=== PATIENT | female | born 1995 | race Caucasian/White ===

== ENCOUNTER 2024-06-25 14:32 | Inpatient (IN) | payer OTHER ==
--- NOTE | 2024-06-25 14:40 | ED ---
General Adult HPI - General Chief complaint: Overdose Stated complaint: overdose Time Seen by Provider: 06/25/24 14:37 Source: patient, EMS Mode of arrival: EMS Limitations: no limitations - History of Present Illness Initial comments: Patient is a 28-year-old female with past medical history of anxiety and borderline personality disorder presenting today for reported overdose. Patient states that she "does not want to live like this anymore" so took reportedly 50- 90 Wellbutrin tablets in an overdose attempt. Patient presents with a bag of medications and the bottle of Wellbutrin tablets she took which reportedly contained 30 tablets. She states she did refill it previously with an old prescription for Wellbutrin. Denies additional ingestions, denies alcohol use. States she has never been admitted for psychiatric issues in the past. She c urrently endorses lightheadedness, nausea and anxiety otherwise denies additional symptoms including hallucinations, headache, chest pain, shortness of breath, abdominal pain. - Related Data Home Medications Medication Instructions Recorded Confirmed Desvenlafaxine [Pristiq ER] 100 mg PO DAILY 06/25/24 06/25/24 Famotidine [Pepcid] 20 mg PO BID 06/25/24 06/25/24 Propranolol HCl 10 mg PO DAILY PRN 06/25/24 06/25/24 buPROPion XL [Wellbutrin XL] 150 mg PO DAILY 06/25/24 06/25/24 lamoTRIgine 200 mg PO DAILY 06/25/24 06/25/24 Allergies Allergy/AdvReac Type Severity Reaction Status Date / Time adhesive Allergy Rash/Hives Verified 06/25/24 14:54 Review of Systems ROS Statement: Those systems with pertinent positive or pertinent negative responses have been documented in the HPI. ROS Other: All systems not noted in ROS Statement are negative. Past Medical History Past Medical History: No Reported History, GERD/Reflux Additional Past Medical History / Comment(s): Does not take any meds for reflux at this time. History of Any Multi-Drug Resistant Organisms: None Reported Past Surgical History: No Surgical Hx Reported Past Anesthesia/Blood Transfusion Reactions: No Reported Reaction Past Psychological History: Depression Smoking Status: Never smoker Past Alcohol Use History: None Reported Past Drug Use History: Marijuana - Past Family History Mother Family Medical History: Hypertension Additional Family Medical History / Comment(s): Bipolar, depression, and bleeding ulcers. Father Family Medical History: Cancer Additional Family Medical History / Comment(s): of pancreatic cancer. General Exam - General Exam Comments Initial Comments: PE: CONSTITUTIONAL: No apparent distress, somewhat ill-appearing, nontoxic, awake and alert SKIN: Generalized pallor, cool, dry, no jaundice, hives or petechiae EYES: Pupils are equally round, extraocular movements intact without nystagmus, clear conjunctiva, non-icteric sclera, no nystagmus HENT: Normocephalic, atraumatic, moist mucus membranes, oropharynx clear without exudates NECK: , Full range of motion, normal appearance PULMONARY: Clear to auscultation without wheezes, rhonchi, or rales, normal excursion, no accessory muscle use and no stridor CARDIOVASCULAR: Regular rate, rhythm, normal S1 and S2. No appreciated murmurs, rubs or gallops. Strong radial pulses with intact distal perfusion. No lower extremity edema GASTROINTESTINAL: Soft, active bowel sounds throughout, non-tender, non- distended, no palpable masses, no rebound or guarding. No hepatosplenomegaly MUSCULOSKELETAL: Extremities have no gross deformity, no edema, redness, or swelling. No calf swelling NEUROLOGIC:_a/o x 3, GCS 15, normal mentation and speech. Moves all extremities x 4 without motor or sensory deficit, no rigidity or clonus PSYCHIATRIC:_Mildly anxious, tearful, regretful mood and affect, thought process is clear and linear, does not appear to be responding to internal stimuli Limitations: no limitations Course Vital Signs 06/25/24 06/25/24 06/25/24 14:35 14:40 16:40 Temperature 98.3 F Pulse Rate 83 120 H 133 H Respiratory 18 18 18 Rate Blood Pressure 148/96 142/90 153/109 O2 Sat by Pulse 99 97 97 Oximetry 06/25/24 06/25/24 06/25/24 17:49 18:04 19:15 Temperature 98 F Pulse Rate 115 H 133 H 129 H Respiratory 18 18 16 Rate Blood Pressure 147/110 145/98 138/99 O2 Sat by Pulse 96 96 99 Oximetry 06/25/24 06/26/24 21:13 00:58 Temperature 99.1 F Pulse Rate 131 H 124 H Respiratory 18 18 Rate Blood Pressure 138/88 121/99 O2 Sat by Pulse 97 97 Oximetry EKG Findings - EKG Comments: EKG Findings:: Sinus rhythm, rate 84 bpm DC interval 170 ms slightly shortened, QT/QTc 357/398, normal axis, no ST elevations or depressions, no arrhythmia STEMI, no terminal R waves Medical Decision Making - Medical Decision Making Was pt. sent in by a medical professional or institution (, PA, SUPERVISOR INSTRUMENT REPAIR, urgent care, hospital, or [facility]...) When possible be specific @ -[No] Did you speak to anyone other than the patient for history (EMS, parent, family, police, friend...)? What history was obtained from this source @ -Spoke with EMS personnel who provided above history, state that they called poison control who said to monitor for seizures and give activated charcoal, treat with benzodiazepines Did you review nursing and triage notes (agree or disagree)? Why? @ -[I reviewed nursing and triage notes] Were old charts reviewed (outside hosp., previous admission, EMS record, old EKG, old radiological studies, urgent care reports/EKG's, [facility] records)? Report findings @ -[Medical records reviewed]-Reviewed discharge summary from 02/23/2017, appears patient was admitted for appendicitis at time Differential Diagnosis (chest pain, altered mental status, abdominal pain women, abdominal pain men, vaginal bleeding, weakness, fever, dyspnea, syncope, headache, dizziness, GI bleed, back pain, seizure, CVA, palpatations, mental health, musculoskeletal)? @Differential Mental Health Depression, anxiety, bipolar, psychosis, schizophrenia, borderline personality, situational depression, adjustment disorder, behavioral disorder, brain tumor, malingering, substance abuse, encephalopathy, medication reaction, dementia, hypothyroidism, degenerative neurologic disorder, lupus.... This is not meant to be all-inclusive list Differential diagnose samanta broad over top considerations include serotonin syndrome, acetaminophen toxicity, salicylate toxicity, anticholinergic toxicity, alcohol toxicity, sympathomimetic toxicity, NMS this is not an all-inclusive list EKG interpreted by me (3pts min.). @ -[As above] X-rays interpreted by me (1pt min.). @ -[None done] CT interpreted by me (1pt min.). @ -[None done] U/S interpreted by me (1pt. min.). @ -[None done] What testing was considered but not performed or refused? (CT, X-rays, U/S, labs)? Why? @ -[None] What meds were considered but not given or refused? Why? @ -[None] Did you discuss the management of the patient with other professionals (professionals i.e. , PA, SUPERVISOR INSTRUMENT REPAIR, lab, RT, psych nurse, social sciences instructor, sap administrator, teacher, admissions officer, caser up)? Give summary @ -[No] Was smoking cessation discussed for >3mins.? @ -[No] Was critical care preformed (if so, how long)? @Yes 35 minutes Were there social determinants of health that impacted care today? How? (Homelessness, low income, unemployed, alcoholism, drug addiction, transportation, low edu. Level, literacy, decrease access to med. care, fpc, rehab)? @ -[No] Was there de-escalation of care discussed even if they declined (Discuss DNR or withdrawal of care, Hospice)? @ -[No] What co-morbidities impacted this encounter? (DM, HTN, Smoking, COPD, CAD, Cancer, CVA, ARF, Chemo, Hep., AIDS, mental health diagnosis, sleep apnea, morbid obesity)? BPD, anxiety Was patient admitted / discharged? Hospital course, mention meds given and rout e, prescriptions, significant lab abnormalities, going to OR and other pertinent info. @[id number]-old female presenting today for intentional overdose of Wellbutrin, reportedly ingested 50 to 90 -150 mg tablets at noon today.. Seen and assessed on arrival. She is somewhat ill-appearing though in no acute distress, nontoxic. Tearful, mildly anxious, regretful. No clonus, no focal deficits, no leadpipe rigidity she is awake and alert without seizure activity. Patient will be put on seizure precautions, tox and comprehensive labs, EKG. Patient being 1 dose Ativan due to anxiety. Will consider escalating doses of Ativan if patient symptoms escalate. Control contacted, recommended activated charge charcoal and 24-hour obs period. On reassessment patient endorses anxiety and feels shaky but there is no seizure activity she remains awake and alert. Will give her a dose additional dose of 2 mg Ativan. Clinical certification has been filed by myself due to intentional overdose. Discussed case with Bowen Harrington, kindly accepts patient for admission. Shortly after discussion with Len, while patient boarded in the emergency department patient did become more shaky and tachycardic, 4 mg IV Ativan was ordered, RN contacted admitting physician, Dr. Sanchez, for further direction. Undiagnosed new problem with uncertain prognosis? @ -[No] Drug Therapy requiring intensive monitoring for toxicity (Heparin, Nitro, Insulin, Cardizem)? @ -[No] Were any procedures done? @ -[No] Diagnosis/symptom? @Intentional Wellbutrin overdose Acute, or Chronic, or Acute on Chronic? @ -Acute Uncomplicated (without systemic symptoms) or Complicated (systemic symptoms)? @Complicated Side effects of treatment? @ -[No] Exacerbation, Progression, or Severe Exacerbation? @ -[No] Poses a threat to life or bodily function? How? (Chest pain, [place], [place], pneumonia, PE, COPD, DKA, ARF, appy, cholecystitis, CVA, Diverticulitis, Homicidal, Suicidal, threat to staff... and all critical care pts) @Yes, Wellbutrin overdose is life-threatening and puts patient at risk for seizures - Lab Data Result diagrams: 06/26/24 06:10 06/26/24 06:10 Lab Results 06/25/24 06/25/24 06/25/24 Range/Units 14:50 14:50 14:50 WBC 9.2 (3.8-10.6) k/uL RBC 4.28 (3.80-5.40) m/uL Hgb 13.5 (11.4-16.0) gm/dL Hct 40.0 (34.0-46.0) % MCV 93.5 (80.0-100.0) fL MCH 31.5 (25.0-35.0) pg MCHC 33.7 (31.0-37.0) g/dL RDW 13.9 (11.5-15.5) % Plt Count 238 (150-450) k/uL MPV 8.3 Neutrophils % 84 % Lymphocytes % 10 % Monocytes % 5 % Eosinophils % 1 % Basophils % 0 % Neutrophils # 7.7 (1.3-7.7) k/uL Lymphocytes # 0.9 L (1.0-4.8) k/uL Monocytes # 0.4 (0-1.0) k/uL Eosinophils # 0.1 (0-0.7) k/uL Basophils # 0.0 (0-0.2) k/uL PT 11.5 (10.0-12.5) sec INR 1.1 (<1.2) Sodium (137-145) mmol/L Potassium (3.5-5.1) mmol/L Chloride (98-107) mmol/L Carbon Dioxide (22-30) mmol/L Anion Gap mmol/L BUN (7-17) mg/dL Creatinine (0.52-1.04) mg/dL Est GFR (CKD-EPI)AfAm (>60 ml/min/1.73 sqM) Est GFR (CKD-EPI)NonAf (>60 ml/min/1.73 sqM) Glucose (74-99) mg/dL Plasma Lactic Acid Soham (0.7-2.0) mmol/L Calcium (8.4-10.2) mg/dL Total Bilirubin (0.2-1.3) mg/dL AST (14-36) U/L ALT (4-34) U/L Alkaline Phosphatase (38-126) U/L Troponin I (0.000-0.034) ng/mL Total Protein (6.3-8.2) g/dL Albumin (3.5-5.0) g/dL Salicylates mg/dL Urine Opiates Screen Not Detected (NotDetected) Ur Oxycodone Screen Not Detected (NotDetected) Urine Methadone Screen Not Detected (NotDetected) Acetaminophen ug/mL Ur Barbiturates Screen Not Detected (NotDetected) U Tricyclic Antidepress Not Detected (NotDetected) Ur Phencyclidine Scrn Not Detected (NotDetected) Ur Amphetamines Screen Not Detected (NotDetected) U Methamphetamines Scrn Not Detected (NotDetected) U Benzodiazepines Scrn Detected H (NotDetected) Urine Cocaine Screen Not Detected (NotDetected) U Marijuana (THC) Screen Detected H (NotDetected) Serum Alcohol mg/dL 06/25/24 06/25/24 06/25/24 Range/Units 14:50 14:50 15:04 WBC (3.8-10.6) k/uL RBC (3.80-5.40) m/uL Hgb (11.4-16.0) gm/dL Hct (34.0-46.0) % MCV (80.0-100.0) fL MCH (25.0-35.0) pg MCHC (31.0-37.0) g/dL RDW (11.5-15.5) % Plt Count (150-450) k/uL MPV Neutrophils % % Lymphocytes % % Monocytes % % Eosinophils % % Basophils % % Neutrophils # (1.3-7.7) k/uL Lymphocytes # (1.0-4.8) k/uL Monocytes # (0-1.0) k/uL Eosinophils # (0-0.7) k/uL Basophils # (0-0.2) k/uL PT (10.0-12.5) sec INR (<1.2) Sodium 141 (137-145) mmol/L Potassium 3.5 (3.5-5.1) mmol/L Chloride 109 H (98-107) mmol/L Carbon Dioxide 20 L (22-30) mmol/L Anion Gap 12 mmol/L BUN 5 L (7-17) mg/dL Creatinine 0.75 (0.52-1.04) mg/dL Est GFR (CKD-EPI)AfAm >90 (>60 ml/min/1.73 sqM) Est GFR (CKD-EPI)NonAf >90 (>60 ml/min/1.73 sqM) Glucose 102 H (74-99) mg/dL Plasma Lactic Acid Soham 1.2 (0.7-2.0) mmol/L Calcium 9.6 (8.4-10.2) mg/dL Total Bilirubin 0.6 (0.2-1.3) mg/dL AST 33 (14-36) U/L ALT 91 H (4-34) U/L Alkaline Phosphatase 81 (38-126) U/L Troponin I <0.012 (0.000-0.034) ng/mL Total Protein 7.0 (6.3-8.2) g/dL Albumin 4.4 (3.5-5.0) g/dL Salicylates <1.0 mg/dL Urine Opiates Screen (NotDetected) Ur Oxycodone Screen (NotDetected) Urine Methadone Screen (NotDetected) Acetaminophen <10.0 ug/mL Ur Barbiturates Screen (NotDetected) U Tricyclic Antidepress (NotDetected) Ur Phencyclidine Scrn (NotDetected) Ur Amphetamines Screen (NotDetected) U Methamphetamines Scrn (NotDetected) U Benzodiazepines Scrn (NotDetected) Urine Cocaine Screen (NotDetected) U Marijuana (THC) Screen (NotDetected) Serum Alcohol <10 mg/dL Disposition Clinical Impression: Intentional overdose Disposition: ADMITTED IP TO THIS [facility] Condition: Stable
[2024-06-25] MEDS: SODIUM CHLORIDE 0.9% 1,000 ML IV STA (14:46)
[2024-06-25] MEDS: LORazepam 2 MG/ML INJ IV STA ×3 (14:47→18:08)
[2024-06-25 14:58] LABS: Basophils % (A) 0 %; Eosinophils # (A) 0.1 k/uL (0-0.7); Eosinophils % (A) 1 %; HGB 13.5 gm/dL (11.4-16.0); Lymphocytes # (A) 0.9 k/uL (1.0-4.8); Lymphocytes % (A) 10 %; MCH 31.5 pg (25.0-35.0); MCHC 33.7 g/dL (31.0-37.0); MCV 93.5 fL (80.0-100.0); Mean Platelet Volume 8.3; Monocytes # (A) 0.4 k/uL (0-1.0); Monocytes % (A) 5 %; Neutrophils # (A) 7.7 k/uL (1.3-7.7); Neutrophils % (A) 84 %; Platelet Count 238 k/uL (150-450); RBC 4.28 m/uL (3.80-5.40); RDW 13.9 % (11.5-15.5); WBC 9.2 k/uL (3.8-10.6)
[2024-06-25 15:02] LABS: INR 1.1 (<1.2)
[2024-06-25 15:03] LABS: Prothrombin Time 11.5 sec (10.0-12.5)
[2024-06-25 15:10] LABS: ALT 91 U/L (4-34); AST 33 U/L (14-36); Acetaminophen <10.0 ug/mL; African American GFR (CKD) >90 (>60 ml/min/1.73 sqM); Albumin 4.4 g/dL (3.5-5.0); Alcohol <10 mg/dL; Alkaline Phosphatase 81 U/L (38-126); Anion Gap 12 mmol/L; Blood Urea Nitrogen 5 mg/dL (7-17); Calcium 9.6 mg/dL (8.4-10.2); Carbon Dioxide 20 mmol/L (22-30); Chloride 109 mmol/L (98-107); Glucose 102 mg/dL (74-99); Non-African American GFR(CKD) >90 (>60 ml/min/1.73 sqM); Potassium 3.5 mmol/L (3.5-5.1); Salicylate <1.0 mg/dL; Sodium 141 mmol/L (137-145); Total Bilirubin 0.6 mg/dL (0.2-1.3)
[2024-06-25] MEDS ORDERED: ALPRAZolam 0.25 MG TAB PO PRN (16:35)
[2024-06-25] MEDS ORDERED: NALOXONE 0.4 MG/ML 1 ML VIAL IV PRN (16:35)
[2024-06-25] MEDS: ONDANSETRON 4 MG/2 ML VIAL IVP STA (17:09)
[2024-06-25] MEDS: SODIUM CHLORIDE 0.9% 1,000 ML IV SCH (17:10)
[2024-06-25 17:28] LABS: Glucose,Whole Blood 94 mg/dL (70-110)
--- NOTE | 2024-06-25 18:28 | P.HPIM ---
History of Present Illness H&P Date: 06/25/24 Chief Complaint: Wellbutrin overdose 28-year-old woman with medical history of anxiety and borderline personality disorder on Wellbutrin presented after intentional ingestion of Wellbutrin. Patient is psychotic at the time my evaluation does not provide reliable history. According to ER provider signout as well as chart review, patient ingested somewhere between 50-90 extended release Wellbutrin tablets and an overdose attempt. Patient is clearly agitated, tachycardic at the time my evaluation. Upon arrival patient was afebrile, 148/96, heart rate 83. Patient subsequently received activated charcoal, was started on IV fluids, and given a total of 7 mg of Ativan while on continuous telemetry, with heart rates increasing to the 130s to 140s. The ER provider did contact poison control control who recommended medical monitoring until patient is stable for transfer to the mental health unit. Review of lab work shows normal CBC, CO2 of 20, ALT of 91, negative troponin, normal lactic acid, negative salicylate level, alcohol level, Tylenol level. Initial EKG shows normal sinus rhythm with a short MO interval and right axis deviation. Patient was admitted to the cardiac selective floor with telemetry, with low threshold for ICU escalation. Review of systems is not reliable in patient's present state. Gen: In mild distress HEENT: normocephalic, atraumatic, hearing acuity is intant, mucous membranes moist CVS: perfusing all extremities well, no pitting edema, Respiratory: symmetric chest expansion, no accessory muscle use, GI: soft, NTTP, ND, : no suprapubic tenderness, no CVA tenderness MSK/Derm: no rashes, cyanosis Neuro: CN II-XII intact, no motor weakness, Psych: cooperative, highly anxious mood and affect, judgment and insight is impa ired Labs and imaging reviewed above Assessment/plan: Intentional overdose with Wellbutrin Anxiety Borderline personality disorder -Admit patient to cardiac selected with telemetry, low threshold for escalation to ICU for IV benzodiazepine drip -Seizure precautions -Start patient on Librium 25 mg 4 times daily -4 mg Ativan every 4 hours as needed for seizures -Psychiatry consulted -One-to-one sitter -EKG every 6 hours to monitor MO interval Patient is full code Past Medical History Past Medical History: No Reported History, GERD/Reflux Additional Past Medical History / Comment(s): Does not take any meds for reflux at this time. History of Any Multi-Drug Resistant Organisms: None Reported Past Surgical History: No Surgical Hx Reported Past Anesthesia/Blood Transfusion Reactions: No Reported Reaction Past Psychological History: Depression Smoking Status: Never smoker Past Alcohol Use History: None Reported Past Drug Use History: Marijuana - Past Family History Mother Family Medical History: Hypertension Additional Family Medical History / Comment(s): Bipolar, depression, and bleeding ulcers. Father Family Medical History: Cancer Additional Family Medical History / Comment(s): of pancreatic cancer. Medications and Allergies Home Medications Medication Instructions Recorded Confirmed Type Desvenlafaxine [Pristiq ER] 100 mg PO DAILY 06/25/24 06/25/24 History Famotidine [Pepcid] 20 mg PO BID 06/25/24 06/25/24 History Propranolol HCl 10 mg PO DAILY PRN 06/25/24 06/25/24 History buPROPion XL [Wellbutrin XL] 150 mg PO DAILY 06/25/24 06/25/24 History lamoTRIgine 200 mg PO DAILY 06/25/24 06/25/24 History Allergies Allergy/AdvReac Type Severity Reaction Status Date / Time adhesive Allergy Rash/Hives Verified 06/25/24 14:54 Physical Exam Osteopathic Statement: *. No significant issues noted on an osteopathic structural exam other than those noted in the History and Physical/Consult. Vitals: Vital Signs Temp Pulse Resp BP Pulse Ox 06/25/24 18:04 98 F 133 H 18 145/98 96 06/25/24 17:49 115 H 18 147/110 96 06/25/24 16:40 133 H 18 153/109 97 06/25/24 14:40 120 H 18 142/90 97 06/25/24 14:35 98.3 F 83 18 148/96 99 Intake and Output 06/25/24 06/25/24 06/25/24 06:59 14:59 22:59 Other: Weight 120.202 kg Results CBC & Chem 7: 06/25/24 14:50 06/25/24 14:50 Labs: Abnormal Lab Results - Last 24 Hours (Table) 06/25/24 06/25/24 Range/Units 14:50 14:50 Lymphocytes # 0.9 L (1.0-4.8) k/uL Chloride 109 H (98-107) mmol/L Carbon Dioxide 20 L (22-30) mmol/L BUN 5 L (7-17) mg/dL Glucose 102 H (74-99) mg/dL ALT 91 H (4-34) U/L
[2024-06-25] MEDS: chlordiazePOXIDE 25 MG CAP PO SCH (18:49)
[2024-06-25 19:00] LABS: Amphetamine Screen,Urine Not Detected (NotDetected); Barbiturate Screen,Urine Not Detected (NotDetected); Benzodiazepines Screen,Urine Detected (NotDetected); Cocaine Screen,Urine Not Detected (NotDetected); Methadone Screen, Urine Not Detected (NotDetected); Opiate Screen,Urine Not Detected (NotDetected); Oxycodone Screen, Urine Not Detected (NotDetected); Phencyclidine Screen,Urine Not Detected (NotDetected); Tricyclic Antidepressant,Urine Not Detected (NotDetected); Urn Cannabinoid Scrn Detected (NotDetected)
[2024-06-25] MEDS: LORazepam 2 MG/ML INJ IV PRN (19:55)
[2024-06-25] MEDS: TRIMETHOBENZAMIDE 100 MG/ML 2 ML VIAL IM PRN (22:33)
[2024-06-26] MEDS: LORazepam 2 MG/ML INJ IV STA ×5 (00:17→09:00)
[2024-06-26 06:36] LABS: Basophils % (A) 0 %; Eosinophils % (A) 0 %; HCT 38.7 % (34.0-46.0); HGB 12.4 gm/dL (11.4-16.0); Lymphocytes # (A) 0.9 k/uL (1.0-4.8); Lymphocytes % (A) 14 %; MCH 30.5 pg (25.0-35.0); MCHC 32.1 g/dL (31.0-37.0); MCV 95.1 fL (80.0-100.0); Mean Platelet Volume 8.4; Monocytes # (A) 0.3 k/uL (0-1.0); Monocytes % (A) 5 %; Neutrophils # (A) 4.9 k/uL (1.3-7.7); Neutrophils % (A) 78 %; Platelet Count 217 k/uL (150-450); RBC 4.07 m/uL (3.80-5.40); RDW 14.1 % (11.5-15.5); WBC 6.3 k/uL (3.8-10.6)
[2024-06-26 06:52] LABS: ALT 69 U/L (4-34); AST 27 U/L (14-36); African American GFR (CKD) >90 (>60 ml/min/1.73 sqM); Alkaline Phosphatase 68 U/L (38-126); Anion Gap 10 mmol/L; Blood Urea Nitrogen <2 mg/dL (7-17); Calcium 9.1 mg/dL (8.4-10.2); Carbon Dioxide 24 mmol/L (22-30); Chloride 109 mmol/L (98-107); Glucose 98 mg/dL (74-99); Magnesium 1.5 mg/dL (1.6-2.3); Non-African American GFR(CKD) >90 (>60 ml/min/1.73 sqM); Sodium 143 mmol/L (137-145); Total Bilirubin 0.5 mg/dL (0.2-1.3); Total Protein 6.3 g/dL (6.3-8.2)
[2024-06-26] MEDS: diphenhydrAMINE 50 MG/ML 1 ML VIAL IVP STA (08:15)
[2024-06-26] MEDS: HALOPERIDOL LACTATE 5 MG/ML 1 ML VIAL IM STA (08:15)
[2024-06-26] MEDS: HALOPERIDOL LACTATE 5 MG/ML 1 ML VIAL IVP STA (08:15)
[2024-06-26] MEDS: MIDAZOLAM HCL 50 MG in SODIUM CHLORIDE 0.9% 40 ML IV SCH (08:37)
[2024-06-26] MEDS ORDERED: IPRATROPIUM-ALBUTEROL 3 ML NEB INHALATION PRN (08:37)
[2024-06-26] MEDS ORDERED: Magnesium Replacement Protocol 1 EACH MISC MISCELLANE PRN (08:39)
[2024-06-26] MEDS ORDERED: CHLORHEXIDINE GLUCONATE 15 ML CUP MUCOUS MEM SCH (09:00)
[2024-06-26 09:07] LABS: ABG HCO3 19 mmol/L (21-25); ABG Oxygen Saturation >100.0 % (94-97); ABG PCO2 39 mmHg (35-45); ABG PO2 364 mmHg (83-108); ABG TCO2 20 mmol/L (19-24); Allen Test Performed? Yes
[2024-06-26] MEDS ORDERED: SODIUM CHLORIDE 0.9% 1,000 ML IV SCH ×2 (09:30→09:45)
[2024-06-26] MEDS ORDERED: Potassium Replacement Protocol 1 EACH MISC MISCELLANE PRN (09:45)
--- NOTE | 2024-06-26 09:47 | XR ---
EXAMINATION TYPE: XR chest 1V DATE OF EXAM: 06/26/2024 CLINICAL HISTORY: Difficulty breathing post intubation. TECHNIQUE: Single AP portable upright view of the chest is obtained. COMPARISON: None. FINDINGS: There is endotracheal tube terminating past the Nataliya into the right side bronchus. There is left basilar opacity. Right lung is clear. Cardiac silhouette size appears within normal limits. Osseous structures are intact. IMPRESSION: Low-lying endotracheal tube needs to be repositioned. [facility], , 06/26/2024 9:45 AM
--- NOTE | 2024-06-26 09:49 | XR ---
EXAMINATION TYPE: XR chest 1V DATE OF EXAM: 06/26/2024 CLINICAL HISTORY: ET tube adjustment and OG tube placement. TECHNIQUE: Single AP portable upright view of the chest is obtained. COMPARISON: Chest x-ray from earlier today FINDINGS: Improved positioning of endotracheal tube now at the mid clavicular level approximately 4 to 5 cm above the donnie after repositioning. There is new orogastric tube projecting below left emanuel diaphragm. There is left basilar opacity redemonstrated. Right lung remains clear. Cardiac silhouette size stabl e and within normal limits. Osseous structures are intact. IMPRESSION: 1. New orogastric tube satisfactory in position. Endotracheal tube is satisfactory in position after repositioning. 2. Persistent left basilar acute infiltrate and/or atelectasis is noted. [facility], , 06/26/2024 9:47 AM
[2024-06-26] MEDS: MAGNESIUM SULFATE-D5W PMX 1 GM in DEXTROSE/WATER 1 100ML.BAG IVPB SCH (10:00)
[2024-06-26] MEDS: HEPARIN SODIUM,PORCINE 5,000 UNIT/ML 1 ML VIAL SQ SCH (10:00)
[2024-06-26] MEDS: POTASSIUM BICARBONATE/CIT AC 20 MEQ TABLET.EFF NG-TUBE SCH ×3 (10:00→19:06)
[2024-06-26] MEDS: SODIUM BICARB 8.4% 50 ML SYR (1 MEQ/ML) IV STA (10:01)
[2024-06-26 10:08] LABS: Glucose,Whole Blood 92 mg/dL (70-110)
--- NOTE | 2024-06-26 11:43 | P.PN ---
Subjective Progress Note Date: 06/26/24 Called to bedside for rapid response today, patient was extremely agitated hypertensive and tachycardic despite receiving 21 mg of Ativan as well as standing Librium overnight. During the rapid response, patient received an additional 8 mg of Ativan, 50 mg of Benadryl, 5 mg of Haldol. Despite these measures, patient was still extremely agitated requiring 4 point restraints. At this point, decision was made to intubate and sedate the patient at bedside and start the patient on an IV benzodiazepine drip, propofol drip. Patient was intubated using 200 of propofol, 2 of Nimbex. Initial intubation resulted in right mainstem intubation but resolved after pulling back ET tube. Patient was started on midazolam drip in the ICU, propofol drip. She was saturating well on vent settings. General: intubated, sedated HEENT: normocephalic, atraumatic, no tracheal deviation Respiratory: symmetric chest rise, no cyanosis, ventilator dependent CVS: perfusing all extremities, no distal gangrene, no pitting edema GI: soft, ND : no SPT, no CVAT, benton is present Neuro: sedated Hospital course: 28-year-old woman with medical history of anxiety and borderline personality disorder on Wellbutrin presented after intentional ingestion of Wellbutrin. Upon arrival patient was afebrile, 148/96, heart rate 83. Patient subsequently received activated charcoal, was started on IV fluids, and given a total of 7 mg of Ativan while on continuous telemetry, with heart rates increasing to the 130s to 140s. The ER provider did contact poison control control who recommended medical monitoring until patient is stable for transfer to the mental health unit. Review of lab work shows normal CBC, CO2 of 20, ALT of 91, negative troponin, normal lactic acid, negative salicylate level, alcohol level, Tylenol level. Initial EKG shows normal sinus rhythm with a short ME interval and right axis deviation. Patient was admitted to the cardiac selective floor with telemetry, with low threshold for ICU escalation. Assessment/plan: Intentional overdose with Wellbutrin Anxiety Borderline personality disorder -Patient was transferred to the ICU for IV benzodiazepine drip -Seizure precautions, neurology consulted, EEG ordered stat -Continue midazolam drip, uptitrate as warranted -Continue propofol drip -Psychiatry consulted -Pulmonology/ICU care and recommendations appreciated -One-to-one sitter -EKG every 6 hours to monitor ME interval Patient is full code I spent 80 minutes of critical care time on this patient today Objective - Vital Signs Vital signs: Vital Signs Temp 99.1 F 06/26/24 07:55 Pulse 108 H 06/26/24 07:55 Resp 20 06/26/24 07:55 BP 124/87 06/26/24 07:55 Pulse Ox 98 06/26/24 07:55 FiO2 50 06/26/24 09:13 Intake & Output 06/25/24 06/26/24 06/26/24 18:59 06:59 18:59 Weight 120.202 kg 109.4 kg Other: # Voids 1 - Labs CBC & Chem 7: 06/26/24 06:10 06/26/24 06:10 Labs: Abnormal Lab Results - Last 24 Hours (Table) 06/25/24 06/25/24 06/25/24 Range/Units 14:50 14:50 14:50 Lymphocytes # 0.9 L (1.0-4.8) k/uL ABG pH (7.35-7.45) ABG pO2 (83-108) mmHg ABG HCO3 (21-25) mmol/L ABG O2 Saturation (94-97) % Potassium (3.5-5.1) mmol/L Chloride 109 H (98-107) mmol/L Carbon Dioxide 20 L (22-30) mmol/L BUN 5 L (7-17) mg/dL Glucose 102 H (74-99) mg/dL Magnesium (1.6-2.3) mg/dL ALT 91 H (4-34) U/L U Benzodiazepines Scrn Detected H (NotDetected) U Marijuana (THC) Screen Detected H (NotDetected) 06/26/24 06/26/24 06/26/24 Range/Units 06:10 06:10 09:05 Lymphocytes # 0.9 L (1.0-4.8) k/uL ABG pH 7.30 L (7.35-7.45) ABG pO2 364 H (83-108) mmHg ABG HCO3 19 L (21-25) mmol/L ABG O2 Saturation >100.0 H (94-97) % Potassium 3.0 L (3.5-5.1) mmol/L Chloride 109 H (98-107) mmol/L Carbon Dioxide (22-30) mmol/L BUN <2 L (7-17) mg/dL Glucose (74-99) mg/dL Magnesium 1.5 L (1.6-2.3) mg/dL ALT 69 H (4-34) U/L U Benzodiazepines Scrn (NotDetected) U Marijuana (THC) Screen (NotDetected)
[2024-06-26] MEDS ORDERED: IPRATROPIUM-ALBUTEROL 3 ML NEB INHALATION SCH (12:00)
[2024-06-26 12:21] LABS: Glucose,Whole Blood 87 mg/dL (70-110)
[2024-06-26] MEDS: SODIUM CHLORIDE 0.9% 1,000 ML IV SCH (12:46)
--- NOTE | 2024-06-26 13:49 | P.PN ---
Progress Note - Text Progress Note Date: 06/26/24 Preliminary EEG: Negative for seizure or discharges.
--- NOTE | 2024-06-26 14:18 | P.CNPUL ---
History of Present Illness Consult date: 06/26/24 Requesting physician: Sridevi Sanchez Reason for consult: other (Wellbutrin overdose) Chief complaint: Does not want to live like this anymore History of present illness: This is a 28-year-old female with history of borderline personality disorder, presented yesterday to the ER with intentional suicidal attempt by taking multiple Wellbutrin tablets. According to the chart patient may have taken about 30 tablets. Patient stated to the ER physician that she does not want to live like this anymore, and she took many tablets of Wellbutrin. This was obviously a suicidal attempt. Patient received activated charcoal, patient was admitted to the medical floor, however this morning patient was becoming more and more agitated and restless, becoming more lightheaded, patient was getting quite tachycardic, and hypertensive. Has been receiving Ativan and Librium overnight, rapid response team responded to the patient this morning and she received additional 8 mg of Ativan, 50 mg of Benadryl and 5 mg of Haldol. Continued to be agitated and requiring 4 point restraints. At this point desmond modi was intubated, placed on propofol drip and Versed drip, transferred to the ICU, and I saw her on consultation upon arrival. Patient required lines placement including a right femoral triple-lumen catheter and right radial arterial line which was done on emergency basis as the patient had very poor peripheral IV access. Patient was intubated and mechanically ventilated, she is on assist-control rate of 16 tidal volume 450 FiO2 50% and PEEP of 5 ABG showed a pO2 of 364 pCO2 of 39 pH of 7.29 she received 1 amp of bicarb. Patient was on propofol at 50 mcg/kg/min Versed at 3 mg/h IV fluid 0.9 at 75 cc/h and she is on the usual ICU protocol for GI and DVT prophylaxis she is also on ventilatory support, and will address nutritional support later today or tomorrow. CBC showed WBC of 6.3 hemoglobin 12.4 electrolytes showed low potassium of 3.0 being addressed accordingly, labs were all reviewed, test was negative. Drug screen showed positive for benzodiazepines and positive for marijuana. Otherwise was negative. Review of Systems ROS unobtainable: due to endotracheal tube Past Medical History Past Medical History: No Reported History, GERD/Reflux Additional Past Medical History / Comment(s): Does not take any meds for reflux at this time. History of Any Multi-Drug Resistant Organisms: None Reported Past Surgical History: No Surgical Hx Reported Past Anesthesia/Blood Transfusion Reactions: No Reported Reaction Past Psychological History: Depression Smoking Status: Never smoker Past Alcohol Use History: None Reported Past Drug Use History: Marijuana - Past Family History Mother Family Medical History: Hypertension Additional Family Medical History / Comment(s): Bipolar, depression, and bleeding ulcers. Father Family Medical History: Cancer Additional Family Medical History / Comment(s): of pancreatic cancer. Medications and Allergies Home Medications Medication Instructions Recorded Confirmed Type Desvenlafaxine [Pristiq ER] 100 mg PO DAILY 06/25/24 06/25/24 History Famotidine [Pepcid] 20 mg PO BID 06/25/24 06/25/24 History Propranolol HCl 10 mg PO DAILY PRN 06/25/24 06/25/24 History buPROPion XL [Wellbutrin XL] 150 mg PO DAILY 06/25/24 06/25/24 History lamoTRIgine 200 mg PO DAILY 06/25/24 06/25/24 History Allergies Allergy/AdvReac Type Severity Reaction Status Date / Time adhesive Allergy Rash/Hives Verified 06/25/24 14:54 Physical Exam Vitals: Vital Signs Temp Pulse Pulse Resp BP BP Pulse Ox 06/26/24 13:00 87 18 99/60 100 06/26/24 12:52 06/26/24 12:30 85 16 101/70 99 06/26/24 12:00 98.5 F 86 16 102/63 99 06/26/24 11:41 86 17 102/63 99 06/26/24 10:00 06/26/24 09:13 06/26/24 08:50 06/26/24 08:48 06/26/24 07:55 99.1 F 108 H 20 124/87 98 06/26/24 03:49 98.9 F 128 H 18 134/85 98 06/26/24 01:41 124 H 20 125/76 94 L 06/26/24 00:58 99.1 F 124 H 18 121/99 97 06/25/24 21:13 131 H 18 138/88 97 06/25/24 19:15 129 H 16 138/99 99 06/25/24 18:04 98 F 133 H 18 145/98 96 06/25/24 17:49 115 H 18 147/110 96 06/25/24 16:40 133 H 18 153/109 97 06/25/24 14:40 120 H 18 142/90 97 06/25/24 14:35 98.3 F 83 18 148/96 99 FiO2 06/26/24 13:00 06/26/24 12:52 40 06/26/24 12:30 06/26/24 12:00 40 06/26/24 11:41 06/26/24 10:00 50 06/26/24 09:13 50 06/26/24 08:50 100 06/26/24 08:48 100 06/26/24 07:55 06/26/24 03:49 06/26/24 01:41 06/26/24 00:58 06/25/24 21:13 06/25/24 19:15 06/25/24 18:04 06/25/24 17:49 06/25/24 16:40 06/25/24 14:40 06/25/24 14:35 Intake and Output 06/25/24 06/26/24 06/26/24 22:59 06:59 14:59 Intake Total 425 Output Total 400 Balance 25 Intake: Intake, IV Titration 425 Amount Magnesium Sulfate-D5w Pmx 200 1 gm In Dextrose/Water 1 100ml.bag @ 100 mls/hr IVPB Q1H [facility] Rx#: [id number] Sodium Chloride 0.9% 1, 75 000 ml @ 75 mls/hr IV . [id number] [facility] Rx#:[id number] Sodium Chloride 0.9% 1, 150 000 ml @ 75 mls/hr IV . [id number] [facility] Rx#:[id number] Output: Urine 400 Other: Voiding Method Indwelling Catheter # Voids 1 Weight 109.4 kg 109.4 kg ABP, PAP, CO, CI - Last 8 Hours Arterial Blood Pressure 106/69 Arterial Blood Pressure 108/69 Arterial Blood Pressure 122/63 Arterial Blood Pressure 128/63 Gen: Revealed a 28-year-old female obese intubated mechanically ventilated, sedated Head: Atraumatic normocephalic HEENT: PERRLA, EOMI, nonicteric no neck masses no JVD CVS: Distant S1-S2, no S3 gallop, 2/6 systolic murmur throughout the precordium Respiratory: Clear bilaterally no crackles rhonchi or wheezes GI: Obese, soft nontender no rebound no guarding, positive bowel sounds. : no suprapubic tenderness, no CVA tenderness MSK/Derm: No rashes. Skin is dry. And warm Neuro: Could not assess patient is sedated she even received Pneumovax shortly after she arrived to the ICU, Psych: Could not assess. Results - Laboratory Findings CBC and BMP: 06/26/24 06:10 06/26/24 06:10 ABG ABG pH 7.30 (7.35-7.45) L 06/26/24 09:05 ABG pCO2 39 mmHg (35-45) 06/26/24 09:05 ABG pO2 364 mmHg (83-108) H 06/26/24 09:05 ABG O2 Saturation >100.0 % (94-97) H 06/26/24 09:05 PT/INR, D-dimer PT 11.5 sec (10.0-12.5) 06/25/24 14:50 INR 1.1 (<1.2) 06/25/24 14:50 Abnormal lab findings: Abnormal Labs 06/25/24 06/25/24 06/25/24 14:50 14:50 14:50 Lymphocytes # 0.9 L ABG pH ABG pO2 ABG HCO3 ABG O2 Saturation Potassium Chloride 109 H Carbon Dioxide 20 L BUN 5 L Glucose 102 H Magnesium ALT 91 H U Benzodiazepines Scrn Detected H U Marijuana (THC) Screen Detected H 06/26/24 06/26/24 06/26/24 06:10 06:10 09:05 Lymphocytes # 0.9 L ABG pH 7.30 L ABG pO2 364 H ABG HCO3 19 L ABG O2 Saturation >100.0 H Potassium 3.0 L Chloride 109 H Carbon Dioxide BUN <2 L Glucose Magnesium 1.5 L ALT 69 H U Benzodiazepines Scrn U Marijuana (THC) Screen - Diagnostic Findings Chest x-ray: image reviewed (Chest x-ray showed no evidence of active disease except for minimal left basilar atelectasis, doubt pneumonia, endotracheal tube is in proper position, and orogastric tube is in satisfactory position) Assessment and Plan Assessment: Impression: Acute respiratory failure, secondary to Wellbutrin overdose which required significant amount of sedation and patient developed respiratory failure requiring intubation and mechanical ventilation and needed to be intubated for protection of her airways as the patient received significant amount of sedation to control her agitation from Wellbutrin overdose. Again patient was intubated to protect her airways. Wellbutrin overdose Borderline personality disorder Suicidal attempt Recommendation: Continue ventilatory support, ventilator settings were addressed accordingly Patient required placement of lines for IV fluids and for hemodynamic support as well as hemodynamic monitoring if felt to be necessary Patient will be placed on GI and DVT prophylaxis Continue propofol and continue Versed Seizure precautions Psychiatric consultation Continue to monitor EKG and OH interval so far has been within normal. Prognosis is guarded. Patient is critically ill. Time with Patient: Greater than 30
--- NOTE | 2024-06-26 14:22 | P.CN ---
Psychiatric Consult - . Consult date: 06/26/24 Consult:: 06/26/24 14:17 IDENTIFYING DATA: This patient is a 28-year-old female REASON FOR REFERRAL: Psychiatry was consulted for suicide attempt HISTORY OF PRESENT ILLNESS: The patient presented to the hospital with suicide attempt via overdose on reportedly 50-90 Wellbutrin tabs. Activated charcoal was initiated in the ED and patient was started on Librium however today had to be transferred to the ICU and intubated after becoming agitated, requiring IV propofol and midazolam. Patient seen and evaluated in her room, was intubated and unable to provide any history at this time. Will attempt to interview patient once extubated. PAST PSYCHIATRIC HISTORY: Unknown PAST MEDICAL HISTORY: GERD. ALLERGIES: as per EMR. CHEMICAL DEPENDENCY HISTORY: as per HPI. FAMILY PSYCHIATRIC/SUBSTANCE USE HISTORY: Unable to elicit SOCIAL HISTORY: Unable to elicit MENTAL STATUS EXAM: General Appearance: Patient intubated. Patient appears to have poor hygiene and grooming wearing hospital gown. Behavior: Patient is calmly lying in bed without any agitated behavior. Suicidality/Homicidality: Unable to elicit however patient reportedly overdosed on Wellbutrin in a suicide attempt Perceptions: Unable to elicit Though content/process: Unable to elicit Judgment and insight: Poor IMPRESSIONS: Suicide attempt via OD Depression, unspecified PLAN: -Will interview patient at a later time pending extubation. Please contact team once extubated so that interview can be conducted. Will discuss recommendations at that time.
[2024-06-26] MEDS: DEXMEDETOMIDINE/0.9% NACL(PMX) 400 MCG in EMPTY BAG 1 BAG IV SCH (15:21)
[2024-06-26] MEDS: CISATRACURIUM 200 MG in SODIUM CHLORIDE 0.9% 180 ML IV SCH (15:21)
[2024-06-26 17:52] LABS: Glucose,Whole Blood 80 mg/dL (70-110)
--- NOTE | 2024-06-26 19:14 | OP ---
OPERATIVE REPORT DATE OF SERVICE : PROCEDURE PERFORMED: Placement of a right radial arterial line. PREOPERATIVE DIAGNOSIS: Acute hypoxic respiratory failure secondary to acute Wellbutrin overdose. POSTOPERATIVE DIAGNOSIS: Acute hypoxic respiratory failure secondary to acute Wellbutrin overdose. ANESTHESIA USED: None deployed. DESCRIPTION OF PROCEDURE: The right wrist was prepared in a sterile fashion. Drapes were applied. The right radial artery was palpated, easily cannulated. A guidewire was placed. An Arrow catheter was inserted over the guidewire, and the guidewire was removed. Good blood flow, good waveform noted. No complications. Line was secured using 3.0 silk sutures. MMODL / IJN: [id number] /
--- NOTE | 2024-06-26 19:29 | OP ---
OPERATIVE REPORT DATE OF SERVICE : PROCEDURE PERFORMED: Placement of the right femoral triple-lumen catheter. This was done on an emergent basis as the patient had acute hypoxic respiratory failure, and required a venous access. She only had a very tiny peripheral IV, which was not adequate. The patient was on multiple medications and drips. PROCEDURE: The patient was placed in a supine position, the right groin was prepared in a sterile fashion. Drapes were applied. The right area was locally anesthetized with lidocaine. Then, the right femoral vein was easily cannulated, and a guidewire was placed. The area around the guidewire was dilated; then a triple-lumen catheter was inserted; threaded over the guidewire, the guidewire was removed. Good blood flow noted in the 3 different ports, line was secured using 3.0 silk sutures, no complications. MMODL / IJN: [id number] /
[2024-06-26] MEDS: SODIUM CHLORIDE 0.9% 1,000 ML IV ONE (23:22)
[2024-06-26 23:32] LABS: Glucose,Whole Blood 84 mg/dL (70-110)
--- NOTE | 2024-06-27 01:41 | EEG ---
ELECTROENCEPHALOGRAM REPORT CLINICAL HISTORY: This is a 28-year-old woman with Wellbutrin overdose, who has altered mental status. The video EEG is obtained to evaluate for seizure epileptiform activity. RELEVANT MEDICATIONS: 1. Wellbutrin. 2. Ativan. 3. IV propofol. 4. Versed that is reported on the technical services analyst report. EEG TYPE: This is a routine 21-channel EEG with video using the 10/20 electrode placement system. DESCRIPTION: The patient is intubated on a ventilator. The background consists of [id number] voltage of 11 to 11.5 hertz activity and at rare times intermixed with delta activity. There is no physiological stage 2 sleep architecture. There is no focal slowing. Interictal and ictal is none. ACTIVATION PROCEDURE: Photic stimulation did not evoke a posterior driving response. There is no abnormality during the photic stimulation. Hyperventilation is not performed. CLINICAL INTERPRETATION: This is an abnormal routine EEG. The background slowing is suggestive of mild encephalopathy likely due to toxic metabolic derangement as well as medication use (IV propofol, Versed, and Ativan). Otherwise, there is no focal slowing, epileptiform discharge, or seizure on the EEG. Clinical correlation is recommended. MMODL / IJN: [id number] / MTDD
[2024-06-27] MEDS: SODIUM CHLORIDE 0.9% 500 ML 500 ML IV ONE ×2 (03:41→05:32)
[2024-06-27 04:11] LABS: Basophils % (A) 0 %; Eosinophils % (A) 0 %; HCT 32.1 % (34.0-46.0); HGB 10.1 gm/dL (11.4-16.0); Hypochromasia Slight; Lymphocytes # (A) 1.1 k/uL (1.0-4.8); Lymphocytes % (A) 25 %; MCH 30.9 pg (25.0-35.0); MCHC 31.6 g/dL (31.0-37.0); MCV 97.9 fL (80.0-100.0); Mean Platelet Volume 8.5; Monocytes # (A) 0.4 k/uL (0-1.0); Monocytes % (A) 8 %; Neutrophils # (A) 2.8 k/uL (1.3-7.7); Neutrophils % (A) 65 %; Platelet Count 147 k/uL (150-450); RBC 3.28 m/uL (3.80-5.40); WBC 4.3 k/uL (3.8-10.6)
[2024-06-27 04:33] LABS: Magnesium 2.3 mg/dL (1.6-2.3)
[2024-06-27 05:22] LABS: Allen Test Performed? no
[2024-06-27 05:23] LABS: ABG Base Excess 0.8 mmol/L; ABG HCO3 25 mmol/L (21-25); ABG PCO2 38 mmHg (35-45); ABG PH 7.43 (7.35-7.45); ABG PO2 114 mmHg (83-108); ABG TCO2 26 mmol/L (19-24)
[2024-06-27 05:39] LABS: Glucose,Whole Blood 72 mg/dL (70-110)
--- NOTE | 2024-06-27 06:10 | XR ---
EXAMINATION TYPE: XR chest 1V DATE OF EXAM: 06/27/2024 CLINICAL HISTORY: Difficulty breathing progress study. TECHNIQUE: Single AP portable semiupright view of the chest is obtained. COMPARISON: Chest x-ray from one day earlier FINDINGS: Stable endotracheal and orogastric tubes. There are bibasilar opacities and mild central vascular congestion. Cardiac silhouette size stable an d within normal limits. Osseous structures are intact. IMPRESSION: Bibasilar acute infiltrates and/or atelectasis with mild central vascular congestion. [facility], , 06/27/2024 6:08 AM
[2024-06-27] MEDS: NOREPINEPHRINE 4 MG in SODIUM CHLORIDE 0.9% 250 ML IV SCH (07:01)
[2024-06-27] MEDS: PANTOPRAZOLE 40 MG/10 ML VIAL IVP SCH (07:51)
[2024-06-27 08:30] LABS: African American GFR (CKD) >90 (>60 ml/min/1.73 sqM); Anion Gap 8 mmol/L; Blood Urea Nitrogen 3 mg/dL (7-17); Calcium 8.1 mg/dL (8.4-10.2); Carbon Dioxide 22 mmol/L (22-30); Chloride 112 mmol/L (98-107); Glucose 84 mg/dL (74-99); Non-African American GFR(CKD) >90 (>60 ml/min/1.73 sqM); Potassium 3.5 mmol/L (3.5-5.1); Sodium 142 mmol/L (137-145)
[2024-06-27 08:53] LABS: Glucose,Whole Blood 74 mg/dL (70-110)
[2024-06-27] MEDS: POTASSIUM BICARBONATE/CIT AC 20 MEQ TABLET.EFF NG-TUBE SCH (09:27)
[2024-06-27] MEDS: CHLORHEXIDINE GLUCONATE 15 ML CUP MUCOUS MEM SCH (09:27)
[2024-06-27 09:40] LABS: Appearance,Urine Clear (Clear); Bilirubin,Urine Negative (Negative); Blood,Urine Negative (Negative); Color,Urine Light Yellow; Glucose,Urine (UA) Negative (Negative); Ketones,Urine Negative (Negative); Leukocyte Esterase,Urine Negative (Negative); Nitrite,Urine Negative (Negative); PH, Urine 5.5 (5.0-8.0); Protein,Urine Negative (Negative); Specific Gravity,Urine 1.013 (1.001-1.035); Urobilinogen,Urine <2.0 mg/dL (<2.0)
[2024-06-27 09:45] LABS: Reticulocyte % 1.5 % (0.5-2.0)
[2024-06-27 09:53] LABS: Albumin 2.9 g/dL (3.5-5.0); Bilirubin, Delta 0.1 mg/dL (0.0-0.2); Bilirubin,Unconjugated 0.2 mg/dL (0.0-1.1); Total Bilirubin 0.3 mg/dL (0.2-1.3); Total Protein 5.2 g/dL (6.3-8.2)
[2024-06-27 10:02] LABS: Basophils % (A) 0 %; Eosinophils % (A) 0 %; HCT 34.2 % (34.0-46.0); HGB 10.8 gm/dL (11.4-16.0); Lymphocytes # (A) 1.1 k/uL (1.0-4.8); Lymphocytes % (A) 22 %; MCH 30.6 pg (25.0-35.0); MCHC 31.6 g/dL (31.0-37.0); MCV 96.7 fL (80.0-100.0); Mean Platelet Volume 9.2; Monocytes # (A) 0.3 k/uL (0-1.0); Monocytes % (A) 7 %; Neutrophils # (A) 3.4 k/uL (1.3-7.7); Neutrophils % (A) 69 %; Platelet Count 166 k/uL (150-450); RBC 3.54 m/uL (3.80-5.40); RDW 14.4 % (11.5-15.5); WBC 4.9 k/uL (3.8-10.6)
--- NOTE | 2024-06-27 10:14 | P.PN ---
Subjective Progress Note Date: 06/27/24 Had a drop in UOP last night despite IVF, started on low-dose levophed and UOP improved. General: intubated, sedated HEENT: normocephalic, atraumatic, no tracheal deviation Respiratory: symmetric chest rise, no cyanosis, ventilator dependent CVS: perfusing all extremities, no distal gangrene, no pitting edema GI: soft, ND : no SPT, no CVAT, benton is present Neuro: sedated Hospital course: 28-year-old woman with medical history of anxiety and borderline personality disorder on Wellbutrin presented after intentional ingestion of Wellbutrin. Upon arrival patient was afebrile, 148/96, heart rate 83. Patient subsequently received activated charcoal, was started on IV fluids, and given a total of 7 mg of Ativan while on continuous telemetry, with heart rates increasing to the 130s to 140s. The ER provider did contact poison control control who recommended medical monitoring until patient is stable for transfer to the mental health unit. Review of lab work shows normal CBC, CO2 of 20, ALT of 91, negative troponin, normal lactic acid, negative salicylate level, alcohol level, Tylenol level. Initial EKG shows normal sinus rhythm with a short PA interval and right axis deviation. Patient was admitted to the cardiac selective floor with telemetry, with low threshold for ICU escalation. Called to bedside on 06/27, patient was extremely agitated hypertensive and tachycardic despite receiving 21 mg of Ativan as well as standing Librium overnight. During the rapid response, patient received an additional 8 mg of Ativan, 50 mg of Benadryl, 5 mg of Haldol. Despite these measures, patient was still extremely agitated requiring 4 point restraints. At this point, decision was made to intubate and sedate the patient at bedside and start the patient on an IV benzodiazepine drip, propofol drip. Patient was intubated using 200 of propofol, 2 of Nimbex. Initial intubation resulted in right mainstem intubation but resolved after pulling back ET tube. Patient was started on midazolam drip in the ICU, propofol drip. She was saturating well on vent settings. Assessment/plan: Intentional overdose with Wellbutrin Anxiety Borderline personality disorder -Patient remains in ICU on IV benzodiazepine and propofol drip -Seizure precautions, neurology consulted, EEG ordered stat -Continue midazolam drip, uptitrate as warranted -Continue propofol drip -Hgb 10.8 and PLTs 144 today; LDH, haptoglobin, UA, retic count, LFTs, peripheral smear ordered -Psychiatry consulted -Pulmonology/ICU care and recommendations appreciated Patient is full code Objective - Vital Signs Vital signs: Vital Signs Temp 98.5 F 06/27/24 08:00 Pulse 76 06/27/24 09:30 Resp 16 06/27/24 09:30 BP 101/54 06/27/24 09:30 Pulse Ox 100 06/27/24 09:30 FiO2 40 06/27/24 08:40 Intake & Output 06/26/24 06/27/24 06/27/24 18:59 06:59 18:59 Intake Total 265.045 6518.727 495.926 Output Total 820 630 230 Balance 139.762 1179.727 265.926 Weight 109.4 kg 113.7 kg Intake: IV 15 9 a-line 3ml 15 9 Intake, IV Titration 055.477 1334.727 456.926 Amount Magnesium Sulfate-D5w Pmx 200 1 gm In Dextrose/Water 1 100ml.bag @ 100 mls/hr IVPB Q1H [facility] Rx#: [id number] Midazolam HCl 50 mg In 1.05 47.267 30.167 Sodium Chloride 0.9% 40 ml @ 1 MG/HR 1 mls/hr IV .Q24H [facility] Rx#:[id number] Norepinephrine 4 mg In 16.100 Sodium Chloride 0.9% 250 ml @ 0.03 MCG/KG/MIN 12. 996 mls/hr IV .[id number] [facility] Rx#:[id number] Sodium Chloride 0.9% 1, 75 000 ml @ 75 mls/hr IV . [id number] [facility] Rx#:[id number] Sodium Chloride 0.9% 1, 525 825 300 000 ml @ 75 mls/hr IV . [id number] [facility] Rx#:[id number] Sodium Chloride 0.9% 1, 1000 000 ml @ 999 mls/hr IV . Q1H1M ONE Rx#:[id number] Sodium Chloride 0.9% 500 500 ml 500 ml @ 999 mls/hr IV .Q31M ONE Rx#:[id number] Sodium Chloride 0.9% 500 500 ml 500 ml @ 999 mls/hr IV .Q31M ONE Rx#:[id number] propofoL 1,000 mg In 164.546 298.46 110.659 Empty Bag 1 bag @ 15 MCG/ KG/MIN 9.846 mls/hr IV . [id number] [facility] Rx#:[id number] Tube Feeding 280 30 Other 90 Output: Gastric Drainage 250 400 Urine 570 230 230 Other: Voiding Method Indwelling Catheter Indwelling Catheter Indwelling Catheter ABP, PAP, CO, CI - Last Documented Arterial Blood Pressure 108/66 - Labs CBC & Chem 7: 06/27/24 09:23 06/27/24 03:45 Labs: Abnormal Lab Results - Last 24 Hours (Table) 06/26/24 06/26/24 06/27/24 Range/Units 14:00 14:00 03:45 RBC (3.80-5.40) m/uL Hgb (11.4-16.0) gm/dL Hct (34.0-46.0) % Plt Count (150-450) k/uL ABG pO2 (83-108) mmHg ABG Total CO2 (19-24) mmol/L ABG O2 Saturation (94-97) % Potassium 3.4 L (3.5-5.1) mmol/L Chloride (98-107) mmol/L BUN (7-17) mg/dL Calcium (8.4-10.2) mg/dL ALT (4-34) U/L Creatine Kinase 267 H 508 H (30-135) U/L Total Protein (6.3-8.2) g/dL Albumin (3.5-5.0) g/dL 06/27/24 06/27/24 06/27/24 Range/Units 03:45 03:45 04:28 RBC 3.28 L (3.80-5.40) m/uL Hgb 10.1 L (11.4-16.0) gm/dL Hct 32.1 L (34.0-46.0) % Plt Count 147 L (150-450) k/uL ABG pO2 114 H (83-108) mmHg ABG Total CO2 26 H (19-24) mmol/L ABG O2 Saturation 99.0 H (94-97) % Potassium (3.5-5.1) mmol/L Chloride 112 H (98-107) mmol/L BUN 3 L (7-17) mg/dL Calcium 8.1 L (8.4-10.2) mg/dL ALT (4-34) U/L Creatine Kinase (30-135) U/L Total Protein (6.3-8.2) g/dL Albumin (3.5-5.0) g/dL 06/27/24 06/27/24 Range/Units 09:23 09:23 RBC 3.54 L (3.80-5.40) m/uL Hgb 10.8 L (11.4-16.0) gm/dL Hct (34.0-46.0) % Plt Count (150-450) k/uL ABG pO2 (83-108) mmHg ABG Total CO2 (19-24) mmol/L ABG O2 Saturation (94-97) % Potassium (3.5-5.1) mmol/L Chloride (98-107) mmol/L BUN (7-17) mg/dL Calcium (8.4-10.2) mg/dL ALT 46 H (4-34) U/L Creatine Kinase (30-135) U/L Total Protein 5.2 L (6.3-8.2) g/dL Albumin 2.9 L (3.5-5.0) g/dL
[2024-06-27] MEDS: DEXMEDETOMIDINE/0.9% NACL(PMX) 400 MCG in EMPTY BAG 1 BAG IV SCH (11:32)
[2024-06-27 11:50] LABS: Glucose,Whole Blood 79 mg/dL (70-110)
--- NOTE | 2024-06-27 13:30 | P.PN ---
Subjective Progress Note Date: 06/27/24 Principal diagnosis: Acute respiratory failure secondary to Wellbutrin overdose This is a 28-year-old female with history of borderline personality disorder, presented yesterday to the ER with intentional suicidal attempt by taking multiple Wellbutrin tablets. According to the chart patient may have taken about 30 tablets. Patient stated to the ER physician that she does not want to live like this anymore, and she took many tablets of Wellbutrin. This was obviously a suicidal attempt. Patient received activated charcoal, patient was admitted to the medical floor, however this morning patient was becoming more and more agitated and restless, becoming more lightheaded, patient was getting quite tachycardic, and hypertensive. Has been receiving Ativan and Librium ov ernight, rapid response team responded to the patient this morning and she received additional 8 mg of Ativan, 50 mg of Benadryl and 5 mg of Haldol. Continued to be agitated and requiring 4 point restraints. At this point patient was intubated, placed on propofol drip and Versed drip, transferred to the ICU, and I saw her on consultation upon arrival. Patient required lines placement including a right femoral triple-lumen catheter and right radial arterial line which was done on emergency basis as the patient had very poor peripheral IV access. Patient was intubated and mechanically ventilated, she is on assist-control rate of 16 tidal volume 450 FiO2 50% and PEEP of 5 ABG showed a pO2 of 364 pCO2 of 39 pH of 7.29 she received 1 amp of bicarb. Patient was on propofol at 50 mcg/kg/min Versed at 3 mg/h IV fluid 0.9 at 75 cc/h and she is on the usual ICU protocol for GI and DVT prophylaxis she is also on ventilatory support, and will address nutritional support later today or tomorrow. CBC showed WBC of 6.3 hemoglobin 12.4 electrolytes showed low potassium of 3.0 being addressed accordingly, labs were all reviewed, test was negative. Drug screen showed positive for benzodiazepines and positive for marijuana. Otherwise was negative. Patient was evaluated today on 06/27/2024, remains in the ICU, intubated and mechanically ventilated. Patient is on assist-control rate of 16 tidal volume 450 FiO2 40% PEEP of 5 ABG showed a pO2 of 114 pCO2 38 pH of 7.43. Patient r emains on propofol at 50 mcg/kg/min she is also on Versed at 5 mg/h and earlier this morning the patient developed low urine output, and low blood pressure, she received multiple fluid boluses about 3 L, and she had to be placed on norepinephrine at 0.01 mcg/kg/min, I feel the hypotension is most likely related to excessive sedation, and her poor urine output is secondary to low blood pressure. Today I recommended that we cut down on her sedation and hopefully try to transition the patient to Precedex if possible. Apparently this was attempted but the patient woke up suddenly and vomited, and was noted to be restless and agitated has recommended that she goes back on Versed and propofol and the dose to be titrated. Patient has not had any seizure activity, she remains on GI and DVT prophylaxis, heparin subcu, remains on seizure precautions, labs today show WBC count of 4.9 hemoglobin 10.8, electrolytes were noted to be normal renal profile is normal creatinine 0.68 CPK elevated at 508 and this is very related to her recent seizure. Chest x-ray continues to show bibasilar atelectasis, doubt infiltrate. Although patient is set up for aspiration. The chest x-ray is not quite impressive to consider starting empiric antibiotics. Objective - Vital Signs Vital signs: Vital Signs Temp 99.3 F 06/27/24 12:00 Pulse 78 06/27/24 12:00 Resp 16 06/27/24 12:00 BP 106/54 06/27/24 12:00 Pulse Ox 100 06/27/24 12:00 FiO2 40 06/27/24 12:00 Intake & Output 06/26/24 06/27/24 06/27/24 18:59 06:59 18:59 Intake Total 863.313 5577.727 673.148 Output Total 820 630 670 Balance 843.190 0403.727 3.148 Weight 109.4 kg 113.7 kg Intake: IV 15 15 a-line 3ml 15 15 Intake, IV Titration 089.167 1532.727 628.148 Amount Magnesium Sulfate-D5w Pmx 200 1 gm In Dextrose/Water 1 100ml.bag @ 100 mls/hr IVPB Q1H [facility] Rx#: [id number] Midazolam HCl 50 mg In 1.05 47.267 30.167 Sodium Chloride 0.9% 40 ml @ 1 MG/HR 1 mls/hr IV .Q24H [facility] Rx#:[id number] Norepinephrine 4 mg In 16.100 Sodium Chloride 0.9% 250 ml @ 0.03 MCG/KG/MIN 12. 996 mls/hr IV .[id number] [facility] Rx#:[id number] Sodium Chloride 0.9% 1, 75 000 ml @ 75 mls/hr IV . [id number] [facility] Rx#:[id number] Sodium Chloride 0.9% 1, 525 825 450 000 ml @ 75 mls/hr IV . [id number] [facility] Rx#:[id number] Sodium Chloride 0.9% 1, 1000 000 ml @ 999 mls/hr IV . Q1H1M [facility] Rx#:[id number] Sodium Chloride 0.9% 500 500 ml 500 ml @ 999 mls/hr IV .Q31M [facility] Rx#:[id number] Sodium Chloride 0.9% 500 500 ml 500 ml @ 999 mls/hr IV .Q31M [facility] Rx#:[id number] propofoL 1,000 mg In 164.546 298.46 131.881 Empty Bag 1 bag @ 15 MCG/ KG/MIN 9.846 mls/hr IV . [id number] [facility] Rx#:[id number] Tube Feeding 280 30 Other 90 Output: Gastric Drainage 250 400 250 Urine 570 230 370 Emesis 50 Other: Voiding Method Indwelling Catheter Indwelling Catheter Indwelling Catheter ABP, PAP, CO, CI - Last Documented Arterial Blood Pressure 100/65 - Exam Gen: Revealed a 28-year-old female obese intubated mechanically ventilated, sedated Head: Atraumatic normocephalic HEENT: PERRLA, EOMI, nonicteric no neck masses no JVD CVS: Distant S1-S2, no S3 gallop, 2/6 systolic murmur throughout the precordium Respiratory: Clear bilaterally no crackles rhonchi or wheezes GI: Obese, soft nontender no rebound no guarding, positive bowel sounds. : no suprapubic tenderness, no CVA tenderness MSK/Derm: No rashes. Skin is dry. And warm Neuro: Could not assess patient is sedated, on multiple sedatives including propofol and Versed Psych: Could not assess. - Labs CBC & Chem 7: 06/27/24 09:23 02/25/25 11:45 Labs: Abnormal Lab Results - Last 24 Hours (Table) 06/26/24 06/26/24 06/27/24 Range/Units 14:00 14:00 03:45 RBC (3.80-5.40) m/uL Hgb (11.4-16.0) gm/dL Hct (34.0-46.0) % Plt Count (150-450) k/uL Pathologist Review ABG pO2 (83-108) mmHg ABG Total CO2 (19-24) mmol/L ABG O2 Saturation (94-97) % Potassium 3.4 L (3.5-5.1) mmol/L Chloride (98-107) mmol/L BUN (7-17) mg/dL Calcium (8.4-10.2) mg/dL ALT (4-34) U/L Creatine Kinase 267 H 508 H (30-135) U/L Total Protein (6.3-8.2) g/dL Albumin (3.5-5.0) g/dL 06/27/24 06/27/24 06/27/24 Range/Units 03:45 03:45 04:28 RBC 3.28 L (3.80-5.40) m/uL Hgb 10.1 L (11.4-16.0) gm/dL Hct 32.1 L (34.0-46.0) % Plt Count 147 L (150-450) k/uL Pathologist Review ABG pO2 114 H (83-108) mmHg ABG Total CO2 26 H (19-24) mmol/L ABG O2 Saturation 99.0 H (94-97) % Potassium (3.5-5.1) mmol/L Chloride 112 H (98-107) mmol/L BUN 3 L (7-17) mg/dL Calcium 8.1 L (8.4-10.2) mg/dL ALT (4-34) U/L Creatine Kinase (30-135) U/L Total Protein (6.3-8.2) g/dL Albumin (3.5-5.0) g/dL 06/27/24 06/27/24 Range/Units 09:23 09:23 RBC 3.54 L (3.80-5.40) m/uL Hgb 10.8 L (11.4-16.0) gm/dL Hct (34.0-46.0) % Plt Count (150-450) k/uL Pathologist Review See comment A ABG pO2 (83-108) mmHg ABG Total CO2 (19-24) mmol/L ABG O2 Saturation (94-97) % Potassium (3.5-5.1) mmol/L Chloride (98-107) mmol/L BUN (7-17) mg/dL Calcium (8.4-10.2) mg/dL ALT 46 H (4-34) U/L Creatine Kinase (30-135) U/L Total Protein 5.2 L (6.3-8.2) g/dL Albumin 2.9 L (3.5-5.0) g/dL Assessment and Plan Assessment: Impression: Acute respiratory failure, secondary to Wellbutrin overdose which required significant amount of sedation and patient developed respiratory failure requiring intubation and mechanical ventilation and needed to be intubated for protection of her airways as the patient received significant amount of sedation to control her agitation from Wellbutrin overdose. Again patient was intubated to protect her airways. Wellbutrin overdose Borderline personality disorder Suicidal attempt Recommendation: Continue ventilatory support, ventilator settings were addressed accordingly, patient did not tolerate going on Precedex replacing her present course of sedatives including propofol and Versed, hence we will continue propofol and Versed for now, and no plans to wean today. Patient will be placed on GI and DVT prophylaxis Continue propofol and continue Versed Continue seizure precautions, patient is being followed by neurology and EEG was done. Psychiatric consultation, once the patient is extubated and awake Continue to monitor for cardiac arrhythmia Prognosis is guarded. Patient is critically ill. Critical care time is 32 minutes Time with Patient: Greater than 30
[2024-06-27 18:03] LABS: Glucose,Whole Blood 69 mg/dL (70-110)
[2024-06-27] MEDS: DEXTROSE 50% SYRINGE 50 ML IVP STA (18:06)
[2024-06-27 18:37] LABS: Glucose,Whole Blood 128 mg/dL (70-110)
--- NOTE | 2024-06-27 21:50 | XR ---
EXAMINATION TYPE: XR chest 1V portable DATE OF EXAM: 06/27/2024 9:44 PM COMPARISON: Multiple radiographs, with the most recent on 06/27/2024. TECHNIQUE: XR chest 1V portable Portable AP radiograph of the chest. CLINICAL INDICATION:Female, 28 years old with history of possible aspiration; FINDINGS: Lungs/Pleura: No pleural effusion or pneumothorax. Improvement in bibasilar infiltrates. Pulmonary vascularity: Unremarkable. Heart/mediastinum: Cardiomediastinal silhouette is unremarkable. Musculoskeletal: No acute osseous pathology. Other findings: None Lines/Tubes: Endotracheal tube with distal tip 5.3 cm above the donnie Nasogastric tube with its distal tip in the stomach however the sidehole is at the GE junction. IMPRESSION: 1. Improvement in bibasilar infiltrates. 2. NG tube with sidehole at the GE junction. Recommend advancement of 3 cm. [facility], , 06/27/2024 9:48 PM
[2024-06-27 23:15] LABS: Glucose,Whole Blood 64 mg/dL (70-110)
[2024-06-27] MEDS: DEXTROSE 50% SYRINGE 50 ML IVP PRN (23:15)
[2024-06-27] MEDS ORDERED: DEXTROSE 50% SYRINGE 50 ML IVP PRN (23:19)
[2024-06-28 00:09] LABS: Glucose,Whole Blood 80 mg/dL (70-110)
[2024-06-28 04:57] LABS: Glucose,Whole Blood 56 mg/dL (70-110)
[2024-06-28 05:21] LABS: Glucose,Whole Blood 116 mg/dL (70-110)
[2024-06-28 05:27] LABS: Basophils % (A) 0 %; Eosinophils % (A) 1 %; HCT 35.2 % (34.0-46.0); HGB 11.2 gm/dL (11.4-16.0); Lymphocytes # (A) 0.8 k/uL (1.0-4.8); Lymphocytes % (A) 10 %; MCH 31.1 pg (25.0-35.0); MCHC 31.8 g/dL (31.0-37.0); MCV 97.7 fL (80.0-100.0); Monocytes # (A) 0.4 k/uL (0-1.0); Monocytes % (A) 5 %; Neutrophils # (A) 6.4 k/uL (1.3-7.7); Neutrophils % (A) 83 %; Platelet Count 171 k/uL (150-450); RDW 14.4 % (11.5-15.5); WBC 7.6 k/uL (3.8-10.6)
[2024-06-28 05:39] LABS: African American GFR (CKD) >90 (>60 ml/min/1.73 sqM); Anion Gap 6 mmol/L; Blood Urea Nitrogen 3 mg/dL (7-17); Carbon Dioxide 15 mmol/L (22-30); Chloride 119 mmol/L (98-107); Creatine Kinase 496 U/L (30-135); Glucose 72 mg/dL (74-99); Magnesium 1.2 mg/dL (1.6-2.3); Non-African American GFR(CKD) >90 (>60 ml/min/1.73 sqM); Potassium 2.8 mmol/L (3.5-5.1); Sodium 140 mmol/L (137-145)
[2024-06-28 05:46] LABS: ABG Base Excess 0.1 mmol/L; ABG HCO3 23 mmol/L (21-25); ABG Oxygen Saturation 90.4 % (94-97); ABG PCO2 29 mmHg (35-45); ABG TCO2 24 mmol/L (19-24)
[2024-06-28 05:51] LABS: Calcium 6.1 mg/dL (8.4-10.2)
[2024-06-28 05:55] LABS: ABG PO2 54 mmHg (83-108); Allen Test Performed? No
[2024-06-28] MEDS ORDERED: Potassium Replacement Protocol 1 EACH MISC MISCELLANE PRN (06:01)
--- NOTE | 2024-06-28 06:13 | XR ---
EXAMINATION TYPE: XR chest 1V DATE OF EXAM: 06/28/2024 CLINICAL HISTORY: Difficulty breathing progress study. TECHNIQUE: Single AP portable semiupright view of the chest is obtained. COMPARISON: Chest x-ray from one day earlier and older studies. FINDINGS: Stable endotracheal and orogastric tubes. There are bibasilar opacities and mild central vascular congestion. Cardiac silhouette size stable an d within normal limits. Osseous structures are intact. IMPRESSION: Bibasilar acute infiltrates and/or atelectasis with mild central vascular congestion and small right pleural effusion. [facility], , 06/28/2024 6:11 AM
[2024-06-28] MEDS: POTASSIUM CHLORIDE 20 MEQ in WATER FOR INJECTION 1 100ML.BAG IVPB SCH (06:20)
[2024-06-28] MEDS: MAGNESIUM SULFATE-D5W PMX 1 GM in DEXTROSE/WATER 1 100ML.BAG IVPB SCH (06:20)
[2024-06-28] MEDS: CALCIUM GLUCONATE IN NACL 1 GM in SALINE 1 100ML.BAG IVPB ONE (06:36)
[2024-06-28] MEDS ORDERED: POTASSIUM BICARBONATE/CIT AC 20 MEQ TABLET.EFF NG-TUBE SCH (07:00)
[2024-06-28] MEDS: ACETAMINOPHEN TAB 325 MG TAB PO PRN (08:19)
[2024-06-28 11:43] LABS: Glucose,Whole Blood 106 mg/dL (70-110)
[2024-06-28] MEDS: PIPERACILLIN-TAZOBACTAM 3.375 GM in SODIUM CHLORIDE 0.9% 100 ML IVPB SCH (12:09)
[2024-06-28] MEDS ORDERED: VANCOMYCIN IV PER PHARMACY 1 EACH MISC MISCELLANE PRN (12:43)
[2024-06-28] MEDS: VANCOMYCIN 1,750 MG in SODIUM CHLORIDE 0.9% 500 ML 500 ML IVPB ONE (13:49)
--- NOTE | 2024-06-28 14:06 | P.PN ---
Subjective Progress Note Date: 06/28/24 Hospital Course: 28-year-old woman with medical history of anxiety and borderline personality d isorder on Wellbutrin presented after intentional ingestion of Wellbutrin. Upon arrival patient was afebrile, 148/96, heart rate 83. Patient subsequently received activated charcoal, was started on IV fluids, and given a total of 7 mg of Ativan while on continuous telemetry, with heart rates increasing to the 130s to 140s. The ER provider did contact poison control control who recommended medical monitoring until patient is stable for transfer to the mental health unit. Review of lab work shows normal CBC, CO2 of 20, ALT of 91, negative troponin, normal lactic acid, negative salicylate level, alcohol level, Tylenol level. Initial EKG shows normal sinus rhythm with a short MO interval and right axis deviation. Patient was admitted to the cardiac selective floor with telemetry, with low threshold for ICU escalation. RR called on 06/27, patient was extremely agitated hypertensive and tachycardic despite receiving 21 mg of Ativan as well as standing Librium overnight. During the rapid response, patient received an additional 8 mg of Ativan, 50 mg of Benadryl, 5 mg of Haldol. Despite these measures, patient was still extremely agitated requiring 4 point restraints. At this point, decision was made to intubate and sedate the patient at bedside and start the patient on an IV be nzodiazepine drip, propofol drip. Patient was intubated using 200 of propofol, 2 of Nimbex. Initial intubation resulted in right mainstem intubation but resolved after pulling back ET tube. Patient was started on midazolam drip in the ICU, propofol drip. She was saturating well on vent settings. 06/28: Apparently, patient had sedation holidays , had decreased emesis, was suctioned, sedation holiday stopped. Patient was started on low-dose Levophed overnight. Patient was restarted on propofol, continued on Versed. Started spiking fever 06/28 around 8 in the morning ,she was also started on Zosyn, sputum cultures growing presumptive Staph aureus, added vancomycin. Pertinent Imaging: Bibasilar infiltrates Subjective: Debated sedated Vitals Signs Reviewed. General: [, Sedated, morbidly obese Derm: Hypokalemia Hypomagnesemia, [dry] Head: [atraumatic], [normocephalic], [symmetric] Eyes: [EOMI], [no lid lag], [anicteric sclera] Mouth: [no lip lesion], [mucus membranes moist] Cardiovascular: [S1S2 reg], [no murmur] Lungs: [CTA bilateral], [no rhonchi, no rales] , [no accessory muscle use] Abdominal: [soft], [ nontender to palpation], [no guarding], [no appreciable organomegaly] Ext: [no gross muscle atrophy], [no edema], [no contractures] Neuro: [ CN II-XI grossly intact], [no focal neuro deficits] Psych: [Alert], [oriented], [appropriate affect] Data Reviewed Today: Pertinent Labs WBC 7.6, hemoglobin 11.2, ABG with pH of 7.5, pCO2 29, PaO2 54, sodium 140, potassium 2.8, magnesium 1.3, CK4 96, creatinine 0.43 bicarb 15 Assessment and Plan: Acute respiratory failure s/p intubation for airway protection 06/27 Sputum cx growing Staph aureus Sepsis likely secondary to aspiration pneumonia Intentional overdose with Wellbutrin Metabolic acidosis Hypokalemia Hypomagnesemia Anxiety Borderline personality disorder -Patient remains in ICU on IV benzodiazepine and propofol drip -Seizure precautions, neurology consulted, EEG: Background slowing, no epileptiform discharge or seizure -Continue midazolam drip, uptitrate as warranted -Continue propofol drip -Continue vancomycin and Zosyn, MRSA swab pending, blood cultures ordered and pending -Psychiatry consulted -Pulmonology/ICU care and recommendations appreciated -Electrolytes replaced, follow-up levels ordered -daily CXR DVT ppx: Heparin Code status: Full code Anticipated discharge place: Pending clinical course Anticipated discharge time: Pending clinical course Objective - Vital Signs Vital signs: Vital Signs Temp 102.2 F H 06/28/24 12:00 Pulse 85 06/28/24 14:00 Resp 26 H 06/28/24 14:00 BP 123/43 06/28/24 14:00 Pulse Ox 95 06/28/24 14:00 FiO2 50 06/28/24 12:00 Intake & Output 06/27/24 06/28/24 06/28/24 18:59 06:59 18:59 Intake Total 4365.536 9405.328 1857.081 Output Total 1010 1480 930 Balance 306.775 52.328 927.081 Weight 118.7 kg Intake: IV 33 39 1146 Piperacillin-Tazobactam 3 100 .375 gm In Sodium Chloride 0.9% 100 ml @ 25 mls/hr IVPB Q8H [facility] Rx#: [id number] Sodium Chloride 0.9% 1, 525 000 ml @ 75 mls/hr IV . [id number] [facility] Rx#:[id number] Vancomycin 1,750 mg In 500 Sodium Chloride 0.9% 500 ml 500 ml @ 167 mls/hr IVPB [facility] Rx#: [id number] a-line 3ml 33 39 21 Intake, IV Titration 0006.009 4499.328 371.081 Amount Midazolam HCl 50 mg In 65.917 129.066 76.650 Sodium Chloride 0.9% 40 ml @ 1 MG/HR 1 mls/hr IV .Q24H [facility] Rx#:[id number] Norepinephrine 4 mg In 16.100 36.895 Sodium Chloride 0.9% 250 ml @ 0.03 MCG/KG/MIN 12. 996 mls/hr IV .[id number] [facility] Rx#:[id number] Sodium Chloride 0.9% 1, 900 975 000 ml @ 75 mls/hr IV . [id number] [facility] Rx#:[id number] propofoL 1,000 mg In 271.758 389.262 257.536 Empty Bag 1 bag @ 15 MCG/ KG/MIN 9.846 mls/hr IV . [id number] [facility] Rx#:[id number] Tube Feeding 30 280 Other 60 Output: Gastric Drainage 250 Urine 710 1480 930 Emesis 50 Other: Voiding Method Indwelling Catheter Indwelling Catheter Indwelling Catheter ABP, PAP, CO, CI - Last Documented Arterial Blood Pressure 99/54 - Labs CBC & Chem 7: 06/28/24 05:00 06/28/24 05:00 Labs: Abnormal Lab Results - Last 24 Hours (Table) 06/27/24 06/27/24 06/27/24 Range/Units 18:01 18:34 23:14 RBC (3.80-5.40) m/uL Hgb (11.4-16.0) gm/dL Lymphocytes # (1.0-4.8) k/uL ABG pH (7.35-7.45) ABG pCO2 (35-45) mmHg ABG pO2 (83-108) mmHg ABG O2 Saturation (94-97) % Hemoglobin (11.4-16.0) gm/dL Potassium (3.5-5.1) mmol/L Chloride (98-107) mmol/L Carbon Dioxide (22-30) mmol/L BUN (7-17) mg/dL Creatinine (0.52-1.04) mg/dL Glucose (74-99) mg/dL POC Glucose (mg/dL) 69 L 128 H 64 L (70-110) mg/dL Calcium (8.4-10.2) mg/dL Magnesium (1.6-2.3) mg/dL Creatine Kinase (30-135) U/L 06/28/24 06/28/24 06/28/24 Range/Units 04:55 05:00 05:00 RBC 3.60 L (3.80-5.40) m/uL Hgb 11.2 L (11.4-16.0) gm/dL Lymphocytes # 0.8 L (1.0-4.8) k/uL ABG pH (7.35-7.45) ABG pCO2 (35-45) mmHg ABG pO2 (83-108) mmHg ABG O2 Saturation (94-97) % Hemoglobin (11.4-16.0) gm/dL Potassium 2.8 L (3.5-5.1) mmol/L Chloride 119 H (98-107) mmol/L Carbon Dioxide 15 L (22-30) mmol/L BUN 3 L (7-17) mg/dL Creatinine 0.43 L (0.52-1.04) mg/dL Glucose 72 L (74-99) mg/dL POC Glucose (mg/dL) 56 L (70-110) mg/dL Calcium 6.1 L* (8.4-10.2) mg/dL Magnesium 1.2 L (1.6-2.3) mg/dL Creatine Kinase 496 H (30-135) U/L 06/28/24 06/28/24 Range/Units 05:20 05:41 RBC (3.80-5.40) m/uL Hgb (11.4-16.0) gm/dL Lymphocytes # (1.0-4.8) k/uL ABG pH 7.50 H (7.35-7.45) ABG pCO2 29 L (35-45) mmHg ABG pO2 54 L* (83-108) mmHg ABG O2 Saturation 90.4 L (94-97) % Hemoglobin 11.0 L (11.4-16.0) gm/dL Potassium (3.5-5.1) mmol/L Chloride (98-107) mmol/L Carbon Dioxide (22-30) mmol/L BUN (7-17) mg/dL Creatinine (0.52-1.04) mg/dL Glucose (74-99) mg/dL POC Glucose (mg/dL) 116 H (70-110) mg/dL Calcium (8.4-10.2) mg/dL Magnesium (1.6-2.3) mg/dL Creatine Kinase (30-135) U/L Microbiology - Last 24 Hours (Table) 06/27/24 11:10 Gram Stain - Preliminary Sputum Sputum Culture - Preliminary Presumptive Staph aureus
--- NOTE | 2024-06-28 15:10 | P.PN ---
Subjective Progress Note Date: 06/28/24 Principal diagnosis: Acute respiratory failure secondary to Wellbutrin overdose This is a 28-year-old female with history of borderline personality disorder, presented yesterday to the ER with intentional suicidal attempt by taking multiple Wellbutrin tablets. According to the chart patient may have taken about 30 tablets. Patient stated to the ER physician that she does not want to live like this anymore, and she took many tablets of Wellbutrin. This was obviously a suicidal attempt. Patient received activated charcoal, patient was admitted to the medical floor, however this morning patient was becoming more and more agitated and restless, becoming more lightheaded, patient was getting quite tachycardic, and hypertensive. Has been receiving Ativan and Librium ov ernight, rapid response team responded to the patient this morning and she received additional 8 mg of Ativan, 50 mg of Benadryl and 5 mg of Haldol. Continued to be agitated and requiring 4 point restraints. At this point patient was intubated, placed on propofol drip and Versed drip, transferred to the ICU, and I saw her on consultation upon arrival. Patient required lines placement including a right femoral triple-lumen catheter and right radial arterial line which was done on emergency basis as the patient had very poor peripheral IV access. Patient was intubated and mechanically ventilated, she is on assist-control rate of 16 tidal volume 450 FiO2 50% and PEEP of 5 ABG showed a pO2 of 364 pCO2 of 39 pH of 7.29 she received 1 amp of bicarb. Patient was on propofol at 50 mcg/kg/min Versed at 3 mg/h IV fluid 0.9 at 75 cc/h and she is on the usual ICU protocol for GI and DVT prophylaxis she is also on ventilatory support, and will address nutritional support later today or tomorrow. CBC showed WBC of 6.3 hemoglobin 12.4 electrolytes showed low potassium of 3.0 being addressed accordingly, labs were all reviewed, test was negative. Drug screen showed positive for benzodiazepines and positive for marijuana. Otherwise was negative. Patient was evaluated today on 06/27/2024, remains in the ICU, intubated and mechanically ventilated. Patient is on assist-control rate of 16 tidal volume 450 FiO2 40% PEEP of 5 ABG showed a pO2 of 114 pCO2 38 pH of 7.43. Patient r emains on propofol at 50 mcg/kg/min she is also on Versed at 5 mg/h and earlier this morning the patient developed low urine output, and low blood pressure, she received multiple fluid boluses about 3 L, and she had to be placed on norepinephrine at 0.01 mcg/kg/min, I feel the hypotension is most likely related to excessive sedation, and her poor urine output is secondary to low blood pressure. Today I recommended that we cut down on her sedation and hopefully try to transition the patient to Precedex if possible. Apparently this was attempted but the patient woke up suddenly and vomited, and was noted to be restless and agitated has recommended that she goes back on Versed and propofol and the dose to be titrated. Patient has not had any seizure activity, she remains on GI and DVT prophylaxis, heparin subcu, remains on seizure precautions, labs today show WBC count of 4.9 hemoglobin 10.8, electrolytes were noted to be normal renal profile is normal creatinine 0.68 CPK elevated at 508 and this is very related to her recent seizure. Chest x-ray continues to show bibasilar atelectasis, doubt infiltrate. Although patient is set up for aspiration. The chest x-ray is not quite impressive to consider starting empiric antibiotics. Patient was seen today on 06/28/2024, patient remains in the ICU, intubated and mechanically ventilated, she is on assist-control rate of 16 tidal volume 400 FiO2 50% and PEEP of 5. Patient had an earlier blood gas on 40% FiO2 which showed a pO2 of 54 pCO2 29 pH of 7.50 and apparently the gas was done earlier shortly after she was witnessed to have an aspiration episode as she woke up and became agitated, she aspirated and developed right lower lobe atelectasis/infiltrate and possibly a small right-sided pleural effusion hence her FiO2 was increased to 50%. Patient is on propofol at 50 mcg/kg/min, Versed and 13 mg/h norepinephrine at 0.02 mcg/kg/min vital HP at 40/45 and IV fluid 0.9 normal saline at 75 cc/h. WBC count is 7.6 hemoglobin is 11.2, basic metabolic profile is relatively normal however her bicarb is 15 potassium is 2.8, anion gap is 6, and her creatinine kinase is 496. Sputum cultures today are showing presumptive Staph aureus, patient was placed earlier today on Zosyn and now I will go ahead and add vancomycin. Objective - Vital Signs Vital signs: Vital Signs Temp 102.2 F H 06/28/24 12:00 Pulse 85 06/28/24 14:00 Resp 26 H 06/28/24 14:00 BP 123/43 06/28/24 14:00 Pulse Ox 95 06/28/24 14:00 FiO2 50 06/28/24 12:00 Intake & Output 06/27/24 06/28/24 06/28/24 18:59 06:59 18:59 Intake Total 8929.664 5397.328 1875.514 Output Total 1010 1480 930 Balance 306.775 52.328 945.514 Weight 118.7 kg Intake: IV 33 39 1146 Piperacillin-Tazobactam 3 100 .375 gm In Sodium Chloride 0.9% 100 ml @ 25 mls/hr IVPB Q8H [facility] Rx#: [id number] Sodium Chloride 0.9% 1, 525 000 ml @ 75 mls/hr IV . [id number] [facility] Rx#:[id number] Vancomycin 1,750 mg In 500 Sodium Chloride 0.9% 500 ml 500 ml @ 167 mls/hr IVPB ONCE ONE Rx#: [id number] a-line 3ml 33 39 21 Intake, IV Titration 8827.176 4996.328 389.514 Amount Midazolam HCl 50 mg In 65.917 129.066 95.083 Sodium Chloride 0.9% 40 ml @ 1 MG/HR 1 mls/hr IV .Q24H [facility] Rx#:[id number] Norepinephrine 4 mg In 16.100 36.895 Sodium Chloride 0.9% 250 ml @ 0.03 MCG/KG/MIN 12. 996 mls/hr IV .[id number] [facility] Rx#:[id number] Sodium Chloride 0.9% 1, 900 975 000 ml @ 75 mls/hr IV . [id number] [facility] Rx#:[id number] propofoL 1,000 mg In 271.758 389.262 257.536 Empty Bag 1 bag @ 15 MCG/ KG/MIN 9.846 mls/hr IV . [id number] [facility] Rx#:[id number] Tube Feeding 30 280 Other 60 Output: Gastric Drainage 250 Urine 710 1480 930 Emesis 50 Other: Voiding Method Indwelling Catheter Indwelling Catheter Indwelling Catheter ABP, PAP, CO, CI - Last Documented Arterial Blood Pressure 99/54 - Exam Gen: Revealed a 28-year-old female obese intubated mechanically ventilated, sedated Head: Atraumatic normocephalic HEENT: PERRLA, EOMI, nonicteric no neck masses no JVD CVS: Distant S1-S2, no S3 gallop, 2/6 systolic murmur throughout the precordium Respiratory: Clear bilaterally no crackles rhonchi or wheezes GI: Obese, soft nontender no rebound no guarding, positive bowel sounds. : no suprapubic tenderness, no CVA tenderness MSK/Derm: No rashes. Skin is dry. And warm Neuro: Could not assess patient is sedated, on multiple sedatives including propofol and Versed Psych: Could not assess. - Labs CBC & Chem 7: 06/28/24 05:00 06/28/24 05:00 Labs: Abnormal Lab Results - Last 24 Hours (Table) 06/27/24 06/27/24 06/27/24 Range/Units 18:01 18:34 23:14 RBC (3.80-5.40) m/uL Hgb (11.4-16.0) gm/dL Lymphocytes # (1.0-4.8) k/uL ABG pH (7.35-7.45) ABG pCO2 (35-45) mmHg ABG pO2 (83-108) mmHg ABG O2 Saturation (94-97) % Hemoglobin (11.4-16.0) gm/dL Potassium (3.5-5.1) mmol/L Chloride (98-107) mmol/L Carbon Dioxide (22-30) mmol/L BUN (7-17) mg/dL Creatinine (0.52-1.04) mg/dL Glucose (74-99) mg/dL POC Glucose (mg/dL) 69 L 128 H 64 L (70-110) mg/dL Calcium (8.4-10.2) mg/dL Magnesium (1.6-2.3) mg/dL Creatine Kinase (30-135) U/L 06/28/24 06/28/24 06/28/24 Range/Units 04:55 05:00 05:00 RBC 3.60 L (3.80-5.40) m/uL Hgb 11.2 L (11.4-16.0) gm/dL Lymphocytes # 0.8 L (1.0-4.8) k/uL ABG pH (7.35-7.45) ABG pCO2 (35-45) mmHg ABG pO2 (83-108) mmHg ABG O2 Saturation (94-97) % Hemoglobin (11.4-16.0) gm/dL Potassium 2.8 L (3.5-5.1) mmol/L Chloride 119 H (98-107) mmol/L Carbon Dioxide 15 L (22-30) mmol/L BUN 3 L (7-17) mg/dL Creatinine 0.43 L (0.52-1.04) mg/dL Glucose 72 L (74-99) mg/dL POC Glucose (mg/dL) 56 L (70-110) mg/dL Calcium 6.1 L* (8.4-10.2) mg/dL Magnesium 1.2 L (1.6-2.3) mg/dL Creatine Kinase 496 H (30-135) U/L 06/28/24 06/28/24 Range/Units 05:20 05:41 RBC (3.80-5.40) m/uL Hgb (11.4-16.0) gm/dL Lymphocytes # (1.0-4.8) k/uL ABG pH 7.50 H (7.35-7.45) ABG pCO2 29 L (35-45) mmHg ABG pO2 54 L* (83-108) mmHg ABG O2 Saturation 90.4 L (94-97) % Hemoglobin 11.0 L (11.4-16.0) gm/dL Potassium (3.5-5.1) mmol/L Chloride (98-107) mmol/L Carbon Dioxide (22-30) mmol/L BUN (7-17) mg/dL Creatinine (0.52-1.04) mg/dL Glucose (74-99) mg/dL POC Glucose (mg/dL) 116 H (70-110) mg/dL Calcium (8.4-10.2) mg/dL Magnesium (1.6-2.3) mg/dL Creatine Kinase (30-135) U/L Microbiology - Last 24 Hours (Table) 06/27/24 11:10 Gram Stain - Preliminary Sputum Sputum Culture - Preliminary Presumptive Staph aureus Assessment and Plan Assessment: Impression: Acute respiratory failure, secondary to Wellbutrin overdose which required significant amount of sedation and patient developed respiratory failure requiring intubation and mechanical ventilation and needed to be intubated for protection of her airways as the patient received significant amount of sedation to control her agitation from Wellbutrin overdose. Again patient was intubated to protect her airways. Wellbutrin overdose Borderline personality disorder Suicidal attempt Aspiration pneumonia Sepsis secondary to aspiration pneumonia Electrolytes imbalance History of generalized anxiety disorder MRSA pneumonia Recommendation: Continue ventilatory support, Continue vasopressin for soft blood pressure especially if the patient does not improve with fluid boluses Antibiotics including vancomycin and Zosyn for now Continue GI and DVT prophylaxis Continue propofol and Versed Continue seizure precautions Psychiatric consultation, once the patient is extubated and awake Continue to monitor for cardiac arrhythmia Prognosis is guarded. Patient is critically ill. Critical care time is 33 minutes Time with Patient: Greater than 30
[2024-06-28] MEDS: LORazepam 2 MG/ML INJ IV STA (16:35)
[2024-06-28] MEDS: POTASSIUM CHLORIDE 10 MEQ in WATER FOR INJECTION 1 100ML.BAG IVPB SCH ×2 (17:16→23:49)
--- NOTE | 2024-06-28 17:40 | P.CNNES ---
History of Present Illness Consult date: 06/28/24 Requesting physician: Maye Vance Reason for Consult: seizure-like activity. History of Present Illness: This is a 28-year-old woman with history of borderline personality disorder who presented the emergency department 06/25/2024 because of suicidal by taking multiple Wellbutrin tablets. Neurology is consulted because of seizure-like activity. History is obtained from medical record as well as the patient nurse. Seems during this hospital visit she received activated charcoal and was sent to the medical floor and there she was more agitated restless quite tachycardia hypertensive. Patient has been getting Ativan lithium. Patient also been getting Benadryl and Haldol. She is requiring 4 point restraints. As a result the patient was intubated on the ventilator on IV propofol and Versed. She had a routine EEG which was negative for any discharges or seizure. It seems while she is in the ICU today when the sedation was weaned down nurse noted that the patient is having seizure-like activity but upon asking her more she stated that she was very restless and just having tremor and the episode lasted less then 1 minute since the patient received Ativan. She is currently maxed out on Versed as well as IV propofol. Seems that patient had episode of hypoglycemia today early in the morning in the 50s has hypoglycemia and she received correction. Some of the workup at this hospital visit consisted of: White blood cell is within normal limits Level is for 96 Calcium is 6.1 and ionized calcium is 4.7 Magnesium is 1.2 POC glucose is 56 and repeated is in the low 100s. Sodium is within normal limits UDS is positive for benzo as well as marijuana. Review of Systems Limited but as per HPI. Past Medical History Past Medical History: No Reported History, GERD/Reflux Additional Past Medical History / Comment(s): Does not take any meds for reflux at this time. History of Any Multi-Drug Resistant Organisms: None Reported Past Surgical History: No Surgical Hx Reported Past Anesthesia/Blood Transfusion Reactions: No Reported Reaction Past Psychological History: Depression Smoking Status: Never smoker Past Alcohol Use History: None Reported Past Drug Use History: Marijuana - Past Family History Mother Family Medical History: Hypertension Additional Family Medical History / Comment(s): Bipolar, depression, and bleeding ulcers. Father Family Medical History: Cancer Additional Family Medical History / Comment(s): of pancreatic cancer. Medications and Allergies Home Medications Medication Instructions Recorded Confirmed Type Desvenlafaxine [Pristiq ER] 100 mg PO DAILY 06/25/24 06/25/24 History Famotidine [Pepcid] 20 mg PO BID 06/25/24 06/25/24 History Propranolol HCl 10 mg PO DAILY PRN 06/25/24 06/25/24 History buPROPion XL [Wellbutrin XL] 150 mg PO DAILY 06/25/24 06/25/24 History lamoTRIgine 200 mg PO DAILY 06/25/24 06/25/24 History Allergies Allergy/AdvReac Type Severity Reaction Status Date / Time adhesive Allergy Rash/Hives Verified 06/25/24 14:54 Physical Examination - Vital Signs Vital Signs: Vital Signs Temp Pulse Resp BP Pulse Ox FiO2 06/28/24 17:00 77 29 H 139/77 96 06/28/24 16:30 95 38 H 101/48 97 06/28/24 16:00 99.8 F H 86 27 H 107/76 99 50 06/28/24 15:55 50 06/28/24 15:30 87 35 H 91/57 99 06/28/24 15:00 86 37 H 118/54 06/28/24 14:30 86 29 H 130/56 93 L 06/28/24 14:00 85 26 H 123/43 95 06/28/24 13:30 98 32 H 126/55 96 06/28/24 13:00 99 34 H 128/70 98 06/28/24 12:30 93 37 H 122/47 99 06/28/24 12:00 102.2 F H 86 37 H 117/61 99 50 06/28/24 11:57 50 06/28/24 11:30 98 68 H 115/56 97 06/28/24 11:00 93 26 H 113/55 96 06/28/24 10:30 92 30 H 105/57 94 L 06/28/24 10:00 96 27 H 96/66 95 06/28/24 09:30 96 30 H 108/55 95 06/28/24 09:00 104 H 38 H 102/72 94 L 06/28/24 08:30 103 H 31 H 112/59 98 06/28/24 08:26 50 06/28/24 08:00 102.3 F H 101 H 30 H 93/38 97 50 06/28/24 07:30 99 28 H 134/52 97 06/28/24 07:00 100 16 124/65 96 06/28/24 06:30 98 16 119/84 96 06/28/24 06:07 50 06/28/24 06:00 102 H 16 142/64 99 06/28/24 05:30 99 16 132/56 98 06/28/24 05:00 95 17 120/79 94 L 06/28/24 04:30 100 16 114/71 96 06/28/24 04:17 40 06/28/24 04:00 91 16 114/57 95 40 06/28/24 03:30 93 16 127/54 94 L 06/28/24 03:00 89 16 126/63 94 L 06/28/24 02:30 105 H 16 122/51 97 06/28/24 02:00 89 23 113/59 97 06/28/24 01:30 86 20 114/66 96 06/28/24 01:00 92 16 106/54 98 06/28/24 00:30 95 19 102/56 100 06/28/24 00:10 40 06/28/24 00:00 89 17 113/52 99 40 06/27/24 23:30 85 16 102/52 99 06/27/24 23:00 91 17 100/53 100 06/27/24 22:30 86 16 113/59 100 06/27/24 22:00 93 19 100 06/27/24 21:30 98 16 115/61 99 40 06/27/24 21:00 95 18 109/60 100 06/27/24 20:32 40 06/27/24 20:30 91 20 104/48 100 06/27/24 20:00 90 16 111/58 100 40 06/27/24 19:30 86 16 113/60 100 06/27/24 19:00 92 20 112/62 100 06/27/24 18:30 93 20 99/58 100 06/27/24 18:00 86 16 101/42 100 06/27/24 17:30 83 16 99/51 100 Intake and Output 06/28/24 06/28/24 06/28/24 06:59 14:59 22:59 Intake Total 4349.804 0821.514 264 Output Total 985 930 175 Balance 90.229 945.514 89 Intake: IV 27 1146 9 Piperacillin-Tazobactam 3 100 .375 gm In Sodium Chloride 0.9% 100 ml @ 25 mls/hr IVPB Q8H [facility] Rx#: [id number] Sodium Chloride 0.9% 1, 525 000 ml @ 75 mls/hr IV . [id number] [facility] Rx#:[id number] Vancomycin 1,750 mg In 500 Sodium Chloride 0.9% 500 ml 500 ml @ 167 mls/hr IVPB ONCE ONE Rx#: [id number] a-line 3ml 27 21 9 Intake, IV Titration 1048.229 389.514 100 Amount Midazolam HCl 50 mg In 83.967 95.083 Sodium Chloride 0.9% 40 ml @ 1 MG/HR 1 mls/hr IV .Q24H [facility] Rx#:[id number] Norepinephrine 4 mg In 36.895 Sodium Chloride 0.9% 250 ml @ 0.03 MCG/KG/MIN 12. 996 mls/hr IV .[id number] [facility] Rx#:[id number] Sodium Chloride 0.9% 1, 675 000 ml @ 75 mls/hr IV . [id number] [facility] Rx#:[id number] propofoL 1,000 mg In 289.262 257.536 100 Empty Bag 1 bag @ 15 MCG/ KG/MIN 9.846 mls/hr IV . [id number] [facility] Rx#:[id number] Tube Feeding 280 125 Other 60 30 Output: Urine 985 930 175 Other: Voiding Method Indwelling Catheter Indwelling Catheter Indwelling Catheter Weight 118.7 kg ABP, PAP, CO, CI - Last 8 Hours Arterial Blood Pressure 97/59 Arterial Blood Pressure 128/74 Arterial Blood Pressure 124/61 Arterial Blood Pressure 93/79 Arterial Blood Pressure 98/63 Arterial Blood Pressure 31/31 Arterial Blood Pressure 99/54 Arterial Blood Pressure 94/49 Arterial Blood Pressure 110/63 Arterial Blood Pressure 115/68 Arterial Blood Pressure 110/66 Arterial Blood Pressure 109/60 Arterial Blood Pressure 99/59 Arterial Blood Pressure 91/50 Arterial Blood Pressure 103/57 Arterial Blood Pressure 106/60 General: Lying in bed and does not appear in acute distress. Resp: Intubated on a ventilator. Neuro: . Since patient just received Ativan. She is maxed out on IV propofol and IV Versed. Patient is comatose. I had to manually open the eye and the primary gaze is midline. The pupils are 2-3 mm, round and reactive to light. No facial weakness. Patient is breathing over the vent. Motor: No spontaneous movement. No jerking of any extremity. Results - Laboratory Findings CBC and BMP: 06/28/24 05:00 06/28/24 14:31 Abnormal Lab Findings: Abnormal Labs 06/25/24 06/25/24 06/25/24 14:50 14:50 14:50 RBC Hgb Hct Plt Count Lymphocytes # 0.9 L Pathologist Review ABG pH ABG pCO2 ABG pO2 ABG HCO3 ABG Total CO2 ABG O2 Saturation Hemoglobin Potassium Chloride 109 H Carbon Dioxide 20 L BUN 5 L Creatinine Glucose 102 H POC Glucose (mg/dL) Calcium Magnesium ALT 91 H Creatine Kinase Total Protein Albumin U Benzodiazepines Scrn Detected H U Marijuana (THC) Screen Detected H 06/26/24 06/26/24 06/26/24 06:10 06:10 09:05 RBC Hgb Hct Plt Count Lymphocytes # 0.9 L Pathologist Review ABG pH 7.30 L ABG pCO2 ABG pO2 364 H ABG HCO3 19 L ABG Total CO2 ABG O2 Saturation >100.0 H Hemoglobin Potassium 3.0 L Chloride 109 H Carbon Dioxide BUN <2 L Creatinine Glucose POC Glucose (mg/dL) Calcium Magnesium 1.5 L ALT 69 H Creatine Kinase Total Protein Albumin U Benzodiazepines Scrn U Marijuana (THC) Screen 06/26/24 06/26/24 06/27/24 14:00 14:00 03:45 RBC Hgb Hct Plt Count Lymphocytes # Pathologist Review ABG pH ABG pCO2 ABG pO2 ABG HCO3 ABG Total CO2 ABG O2 Saturation Hemoglobin Potassium 3.4 L Chloride Carbon Dioxide BUN Creatinine Glucose POC Glucose (mg/dL) Calcium Magnesium ALT Creatine Kinase 267 H 508 H Total Protein Albumin U Benzodiazepines Scrn U Marijuana (THC) Screen 06/27/24 06/27/24 06/27/24 03:45 03:45 04:28 RBC 3.28 L Hgb 10.1 L Hct 32.1 L Plt Count 147 L Lymphocytes # Pathologist Review ABG pH ABG pCO2 ABG pO2 114 H ABG HCO3 ABG Total CO2 26 H ABG O2 Saturation 99.0 H Hemoglobin Potassium Chloride 112 H Carbon Dioxide BUN 3 L Creatinine Glucose POC Glucose (mg/dL) Calcium 8.1 L Magnesium ALT Creatine Kinase Total Protein Albumin U Benzodiazepines Scrn U Marijuana (THC) Screen 06/27/24 06/27/24 06/27/24 09:23 09:23 18:01 RBC 3.54 L Hgb 10.8 L Hct Plt Count Lymphocytes # Pathologist Review See comment A ABG pH ABG pCO2 ABG pO2 ABG HCO3 ABG Total CO2 ABG O2 Saturation Hemoglobin Potassium Chloride Carbon Dioxide BUN Creatinine Glucose POC Glucose (mg/dL) 69 L Calcium Magnesium ALT 46 H Creatine Kinase Total Protein 5.2 L Albumin 2.9 L U Benzodiazepines Scrn U Marijuana (THC) Screen 06/27/24 06/27/24 06/28/24 18:34 23:14 04:55 RBC Hgb Hct Plt Count Lymphocytes # Pathologist Review ABG pH ABG pCO2 ABG pO2 ABG HCO3 ABG Total CO2 ABG O2 Saturation Hemoglobin Potassium Chloride Carbon Dioxide BUN Creatinine Glucose POC Glucose (mg/dL) 128 H 64 L 56 L Calcium Magnesium ALT Creatine Kinase Total Protein Albumin U Benzodiazepines Scrn U Marijuana (THC) Screen 06/28/24 06/28/24 06/28/24 05:00 05:00 05:20 RBC 3.60 L Hgb 11.2 L Hct Plt Count Lymphocytes # 0.8 L Pathologist Review ABG pH ABG pCO2 ABG pO2 ABG HCO3 ABG Total CO2 ABG O2 Saturation Hemoglobin Potassium 2.8 L Chloride 119 H Carbon Dioxide 15 L BUN 3 L Creatinine 0.43 L Glucose 72 L POC Glucose (mg/dL) 116 H Calcium 6.1 L* Magnesium 1.2 L ALT Creatine Kinase 496 H Total Protein Albumin U Benzodiazepines Scrn U Marijuana (THC) Screen 06/28/24 05:41 RBC Hgb Hct Plt Count Lymphocytes # Pathologist Review ABG pH 7.50 H ABG pCO2 29 L ABG pO2 54 L* ABG HCO3 ABG Total CO2 ABG O2 Saturation 90.4 L Hemoglobin 11.0 L Potassium Chloride Carbon Dioxide BUN Creatinine Glucose POC Glucose (mg/dL) Calcium Magnesium ALT Creatine Kinase Total Protein Albumin U Benzodiazepines Scrn U Marijuana (THC) Screen Assessment and Plan Assessment: This is a 28-year-old woman with a history of borderline personality disorder who presented emergency department because of a suicidal attempt by taking multi ple Wellbutrin tablets. During this hospital visit the patient is agitated, restless tachycardic hypertensive requiring Ativan, Librium Benadryl and Haldol. She was intubated on ventilator and she required IV propofol Versed and today when was weaned down nurse felt maybe there was a seizure-like activity but upon asking the nurse it seems that the patient was having tremor and no convulsion Questionable seizure-like activity per the nurse but it seems not seizure but more tremor due to patient agitation when the sedation was turned off. If she did have a seizure its likely provoked due to her metabolic derangement. She had a prior EEG 2 days ago which was negative for any seizure discharges. Suicidal attempt Hypoglycemia Hypomagnesium History of borderline personality disorder Plan: I ordered a repeat EEG Ordered a CT of the head I would not start the patient on any antiseizure medication since this seems more provoked. If she does continue to have further seizure-like activity then recommend starting the patient on Depakote 1000 mg IV once then 500 mg twice daily which helps with the seizures as well as the mood Med Ativan 1 mg every hour as needed for seizures Seizure precaution and pads Psychiatry is consulted Please avoid any further hypoglycemia and will defer correction of the electrolyte imbalance to primary and ICU team. Will defer the rest of the medical management to primary other specialist Plan discussed with the ICU nurse. Thank you for the consultation Time with Patient: Greater than 30
[2024-06-28] MEDS: LORazepam 2 MG/ML INJ IV PRN (17:48)
[2024-06-28 18:55] LABS: Glucose,Whole Blood 97 mg/dL (70-110)
[2024-06-28] MEDS: DIVALPROEX 500 MG TABLET.DR PO STA (18:57)
[2024-06-28] MEDS: VALPROIC ACID ORAL SOLN 250 MG/5 ML CUP PO ONE (19:34)
[2024-06-28] MEDS: VANCOMYCIN 1,750 MG in SODIUM CHLORIDE 0.9% 500 ML 500 ML IVPB SCH (20:55)
--- NOTE | 2024-06-28 21:39 | CT ---
EXAMINATION TYPE: CT brain wo con DATE OF EXAM: 06/28/2024 COMPARISON: None. CLINICAL INDICATION: Female, 28 years old with history of altered mental status; PHH, AMS. Seizures. TECHNIQUE: CT of the brain performed without contrast with sagittal and coronal reformats. CT DLP: 1095.4 mGycm Automated exposure control for dose reduction was used. FINDINGS: There is no acute intracranial hemorrhage, mass effect, or midline shift identified. The ventricles and sulci are within normal limits in size. Some nonspecific areas of low attenuation in the bilatera l cerebellar hemispheres right greater than left are seen. Slightly low-lying cerebellar hemispheres to level of foramen magnum. No greater than 5 mm inferior extension clearly seen. Nasal septum is dev iated to right of midline. The globes are intact bilaterally. The paranasal sinuses are grossly clear . There is partial visualization of endotracheal tube. IMPRESSION: No acute intracranial hemorrhage or midline shift is seen. Vague areas of low attenuation in the bila teral cerebellar hemispheres slightly more prominent on the right are identified. Ischemic injury is in the differential. Other etiologies not excluded. Consider further investigation with MRI study wit hout and with contrast to better evaluate and characterize based on clinical correlation. [facility], , 06/28/2024 9:37 PM
[2024-06-28 22:47] LABS: Glucose,Whole Blood 93 mg/dL (70-110)
[2024-06-29 02:36] LABS: Glucose,Whole Blood 108 mg/dL (70-110)
[2024-06-29 04:10] LABS: ABG Base Excess -4.3 mmol/L; ABG HCO3 19 mmol/L (21-25); ABG Oxygen Saturation 94.4 % (94-97); ABG PCO2 30 mmHg (35-45); ABG PH 7.42 (7.35-7.45); ABG PO2 70 mmHg (83-108); ABG TCO2 20 mmol/L (19-24)
[2024-06-29 04:23] LABS: Allen Test Performed? no
[2024-06-29 04:28] LABS: Basophils % (A) 0 %; Eosinophils # (A) 0.1 k/uL (0-0.7); Eosinophils % (A) 0 %; HCT 35.7 % (34.0-46.0); HGB 11.2 gm/dL (11.4-16.0); Lymphocytes # (A) 1.3 k/uL (1.0-4.8); Lymphocytes % (A) 9 %; MCH 30.9 pg (25.0-35.0); MCHC 31.3 g/dL (31.0-37.0); MCV 98.8 fL (80.0-100.0); Mean Platelet Volume 9.4; Monocytes # (A) 0.4 k/uL (0-1.0); Monocytes % (A) 3 %; Neutrophils # (A) 12.4 k/uL (1.3-7.7); Neutrophils % (A) 87 %; Platelet Count 202 k/uL (150-450); RBC 3.61 m/uL (3.80-5.40); RDW 14.3 % (11.5-15.5); WBC 14.3 k/uL (3.8-10.6)
[2024-06-29 05:10] LABS: African American GFR (CKD) >90 (>60 ml/min/1.73 sqM); Anion Gap 7 mmol/L; Blood Urea Nitrogen 5 mg/dL (7-17); Calcium 8.4 mg/dL (8.4-10.2); Carbon Dioxide 19 mmol/L (22-30); Chloride 114 mmol/L (98-107); Creatine Kinase 302 U/L (30-135); Glucose 124 mg/dL (74-99); Magnesium 2.2 mg/dL (1.6-2.3); Non-African American GFR(CKD) >90 (>60 ml/min/1.73 sqM); Potassium 4.4 mmol/L (3.5-5.1); Sodium 140 mmol/L (137-145)
--- NOTE | 2024-06-29 06:07 | XR ---
EXAMINATION TYPE: XR chest 1V portable DATE OF EXAM: 06/29/2024 CLINICAL HISTORY: Difficulty breathing progress study. TECHNIQUE: Single AP portable semiupright view of the chest is obtained. COMPARISON: Chest x-ray from one day earlier and older studies. FINDINGS: Stable endotracheal and orogastric tubes. There are more prominent bibasilar opacities and central vascular congestion. Cardiac silhouette size stable and within normal limits. Osseous structures are intact. IMPRESSION: Bibasilar acute infiltrates and/or atelectasis with central vascular congestion and smal l bilateral effusion slightly more prominent. Findings consistent with worsening fluid overload state . [facility], , 06/29/2024 6:04 AM
[2024-06-29] MEDS: VALPROIC ACID ORAL SOLN 250 MG/5 ML CUP PO SCH (08:40)
[2024-06-29] MEDS ORDERED: DIVALPROEX 500 MG TABLET.DR PO SCH (09:00)
[2024-06-29] MEDS ORDERED: PHENobarbital SODIUM 130 MG/ML 1 ML VIAL IV ONE ×2 (11:25→11:28)
[2024-06-29] MEDS: AMPICILLIN-SULBACTAM 3 GM in SODIUM CHLORIDE 0.9% 100 ML IVPB SCH (12:00)
[2024-06-29] MEDS: THIAMINE 100 MG/ML 2 ML VIAL IVP SCH (12:01)
[2024-06-29 12:04] LABS: Glucose,Whole Blood 94 mg/dL (70-110)
--- NOTE | 2024-06-29 12:32 | P.PN ---
Subjective Progress Note Date: 06/29/24 Principal diagnosis: Acute respiratory failure secondary to Wellbutrin overdose This is a 28-year-old female with history of borderline personality disorder, presented yesterday to the ER with intentional suicidal attempt by taking multiple Wellbutrin tablets. According to the chart patient may have taken about 30 tablets. Patient stated to the ER physician that she does not want to live like this anymore, and she took many tablets of Wellbutrin. This was obviously a suicidal attempt. Patient received activated charcoal, patient was admitted to the medical floor, however this morning patient was becoming more and more agitated and restless, becoming more lightheaded, patient was getting quite tachycardic, and hypertensive. Has been receiving Ativan and Librium ov ernight, rapid response team responded to the patient this morning and she received additional 8 mg of Ativan, 50 mg of Benadryl and 5 mg of Haldol. Continued to be agitated and requiring 4 point restraints. At this point patient was intubated, placed on propofol drip and Versed drip, transferred to the ICU, and I saw her on consultation upon arrival. Patient required lines placement including a right femoral triple-lumen catheter and right radial arterial line which was done on emergency basis as the patient had very poor peripheral IV access. Patient was intubated and mechanically ventilated, she is on assist-control rate of 16 tidal volume 450 FiO2 50% and PEEP of 5 ABG showed a pO2 of 364 pCO2 of 39 pH of 7.29 she received 1 amp of bicarb. Patient was on propofol at 50 mcg/kg/min Versed at 3 mg/h IV fluid 0.9 at 75 cc/h and she is on the usual ICU protocol for GI and DVT prophylaxis she is also on ventilatory support, and will address nutritional support later today or tomorrow. CBC showed WBC of 6.3 hemoglobin 12.4 electrolytes showed low potassium of 3.0 being addressed accordingly, labs were all reviewed, test was negative. Drug screen showed positive for benzodiazepines and positive for marijuana. Otherwise was negative. Patient was evaluated today on 06/27/2024, remains in the ICU, intubated and mechanically ventilated. Patient is on assist-control rate of 16 tidal volume 450 FiO2 40% PEEP of 5 ABG showed a pO2 of 114 pCO2 38 pH of 7.43. Patient r emains on propofol at 50 mcg/kg/min she is also on Versed at 5 mg/h and earlier this morning the patient developed low urine output, and low blood pressure, she received multiple fluid boluses about 3 L, and she had to be placed on norepinephrine at 0.01 mcg/kg/min, I feel the hypotension is most likely related to excessive sedation, and her poor urine output is secondary to low blood pressure. Today I recommended that we cut down on her sedation and hopefully try to transition the patient to Precedex if possible. Apparently this was attempted but the patient woke up suddenly and vomited, and was noted to be restless and agitated has recommended that she goes back on Versed and propofol and the dose to be titrated. Patient has not had any seizure activity, she remains on GI and DVT prophylaxis, heparin subcu, remains on seizure precautions, labs today show WBC count of 4.9 hemoglobin 10.8, electrolytes were noted to be normal renal profile is normal creatinine 0.68 CPK elevated at 508 and this is very related to her recent seizure. Chest x-ray continues to show bibasilar atelectasis, doubt infiltrate. Although patient is set up for aspiration. The chest x-ray is not quite impressive to consider starting empiric antibiotics. Patient was seen today on 06/28/2024, patient remains in the ICU, intubated and mechanically ventilated, she is on assist-control rate of 16 tidal volume 400 FiO2 50% and PEEP of 5. Patient had an earlier blood gas on 40% FiO2 which showed a pO2 of 54 pCO2 29 pH of 7.50 and apparently the gas was done earlier shortly after she was witnessed to have an aspiration episode as she woke up and became agitated, she aspirated and developed right lower lobe atelectasis/infiltrate and possibly a small right-sided pleural effusion hence her FiO2 was increased to 50%. Patient is on propofol at 50 mcg/kg/min, Versed and 13 mg/h norepinephrine at 0.02 mcg/kg/min vital HP at 40/45 and IV fluid 0.9 normal saline at 75 cc/h. WBC count is 7.6 hemoglobin is 11.2, basic metabolic profile is relatively normal however her bicarb is 15 potassium is 2.8, anion gap is 6, and her creatinine kinase is 496. Sputum cultures today are showing presumptive Staph aureus, patient was placed earlier today on Zosyn and now I will go ahead and add vancomycin. Patient was seen today on 06/29/2024, patient remains in the ICU, intubated and mechanically ventilated, continues to have intermittent episodes of seizure-like activities although the patient is maximized on propofol at 50 mcg/kg/min on Versed at 15 mg/h patient is requiring norepinephrine at 0.04 mcg/kg/min she is on 0.9 normal saline at 75 cc/h and vital HP at 45 cc/h. CT of the head showed some questionable ischemic injury being addressed by neurology, and recommending eventually MRI. Patient remains on Zosyn and vancomycin for aspiration pneumonia and positive sputum for MRSA. Remains on assist-control rate of 16 tidal volume 400 FiO2 50% and PEEP of 5 ABG showed a pO2 of 70 pCO2 30 pH of 7.42. Hence no changes were made in vent settings. Infectious disease was consulted for her positive Staph aureus in the sputum in the meantime we will continue with vancomycin and Zosyn. Patient clearly had aspiration pneumonia chest x-ray is consistent with aspiration pneumonia. At this point in time the patient is not ready for any weaning as she gets extremely restless and agitated and again she has these episodes of seizure-like activities, Poison control recommended phenobarbital. Patient will be given a dose of phenobarbital x 1. Labs today show WBC is 14.3 hemoglobin 11.2, basic metabolic profile is normal electrolytes are normal bicarb is a bit low at 19 renal profile is normal. CPK is coming down to 302. Objective - Vital Signs Vital signs: Vital Signs Temp 99 F 06/29/24 12:00 Pulse 93 06/29/24 12:15 Resp 26 H 06/29/24 12:15 BP 102/66 06/29/24 12:00 Pulse Ox 92 L 06/29/24 12:15 FiO2 50 06/29/24 12:00 Intake & Output 06/28/24 06/29/24 06/29/24 18:59 06:59 18:59 Intake Total 2311.514 2774.435 1188.695 Output Total 1305 1530 290 Balance 2581.882 1720.435 898.695 Weight 122.4 kg 122.4 kg Intake: IV 1233 1536 568 0.9 @ KVO 100 Ampicillin-Sulbactam 3 gm 100 In Sodium Chloride 0.9% 100 ml @ 200 mls/hr IVPB Q6HR [facility] Rx#:[id number] PHENobarbitaL sodium 507 50 mg In Sodium Chloride 0.9 % 50 ml @ 161.7 mls/hr IV ONCE ONE Rx#:[id number] Piperacillin-Tazobactam 3 100 100 .375 gm In Sodium Chloride 0.9% 100 ml @ 25 mls/hr IVPB Q8H [facility] Rx#: [id number] Sodium Chloride 0.9% 1, 600 900 300 000 ml @ 75 mls/hr IV . [id number] [facility] Rx#:[id number] Vancomycin 1,750 mg In 500 500 Sodium Chloride 0.9% 500 ml 500 ml @ 167 mls/hr IVPB ONCE ONE Rx#: [id number] a-line 3ml 33 36 18 Intake, IV Titration 538.514 698.435 335.695 Amount Midazolam HCl 50 mg In 144.083 172.849 44.683 Sodium Chloride 0.9% 40 ml @ 1 MG/HR 1 mls/hr IV .Q24H [facility] Rx#:[id number] Norepinephrine 4 mg In 36.895 118.985 149.166 Sodium Chloride 0.9% 250 ml @ 0.03 MCG/KG/MIN 12. 996 mls/hr IV .[id number] [facility] Rx#:[id number] propofoL 1,000 mg In 357.536 406.601 141.846 Empty Bag 1 bag @ 15 MCG/ KG/MIN 9.846 mls/hr IV . [id number] [facility] Rx#:[id number] Tube Feeding 450 540 225 Other 90 60 Output: Urine 1305 1530 290 Other: Voiding Method Indwelling Catheter Indwelling Catheter Indwelling Catheter ABP, PAP, CO, CI - Last Documented Arterial Blood Pressure 90/54 - Exam Gen: Revealed a 28-year-old female obese intubated mechanically ventilated, sedated Head: Atraumatic normocephalic HEENT: PERRLA, EOMI, nonicteric no neck masses no JVD CVS: Distant S1-S2, no S3 gallop, 2/6 systolic murmur throughout the precordium Respiratory: Clear bilaterally no crackles rhonchi or wheezes GI: Obese, soft nontender no rebound no guarding, positive bowel sounds. : no suprapubic tenderness, no CVA tenderness MSK/Derm: No rashes. Skin is dry. And warm Neuro: Could not assess patient is sedated, on multiple sedatives including propofol and Versed Psych: Could not assess. - Labs CBC & Chem 7: 06/29/24 04:08 06/29/24 04:08 Labs: Abnormal Lab Results - Last 24 Hours (Table) 06/29/24 06/29/24 06/29/24 Range/Units 04:08 04:08 04:08 WBC 14.3 H (3.8-10.6) k/uL RBC 3.61 L (3.80-5.40) m/uL Hgb 11.2 L (11.4-16.0) gm/dL Neutrophils # 12.4 H (1.3-7.7) k/uL ABG pCO2 30 L (35-45) mmHg ABG pO2 70 L (83-108) mmHg ABG HCO3 19 L (21-25) mmol/L Hemoglobin 11.2 L (11.4-16.0) gm/dL Chloride 114 H (98-107) mmol/L Carbon Dioxide 19 L (22-30) mmol/L BUN 5 L (7-17) mg/dL Glucose 124 H (74-99) mg/dL Creatine Kinase 302 H (30-135) U/L Microbiology - Last 24 Hours (Table) 06/27/24 11:10 Gram Stain - Preliminary Sputum Sputum Culture - Preliminary Staphylococcus aureus 06/28/24 08:50 Gram Stain - Preliminary Sputum Assessment and Plan Assessment: Impression: Acute respiratory failure, secondary to Wellbutrin overdose which required si gnificant amount of sedation and patient developed respiratory failure requiring intubation and mechanical ventilation and needed to be intubated for protection of her airways as the patient received significant amount of sedation to control her agitation from Wellbutrin overdose. Again patient was intubated to protect her airways. Wellbutrin overdose Borderline personality disorder Suicidal attempt Aspiration pneumonia Sepsis secondary to aspiration pneumonia Electrolytes imbalance History of generalized anxiety disorder MRSA pneumonia Recommendation: Continue ventilatory support, Continue antibiotics including vancomycin and Zosyn Consult neurology and consult infectious disease Continue GI and DVT prophylaxis Continue propofol and Versed, patient will be given 1 dose of phenobarbital as recommended by poison control she will also be given thiamine. Continue seizure precautions Psychiatric consultation, once the patient is extubated and awake Continue to monitor for cardiac arrhythmia Prognosis is guarded. Patient is critically ill. Critical care time is 32 minutes Time with Patient: Greater than 30
--- NOTE | 2024-06-29 13:40 | P.PN ---
Subjective Progress Note Date: 06/29/24 I am following-up with patient and yesterday per the nurse, patient had convulsion concerning for seizure so patient was given Ativan and was started on Depakote. It seems patient had change of her pupils yesterday with change in her vitals yesterday. Today patient was tremoring and there concern for sei zure-like activity per the ICU earlier in morning today and was given Ativan. The patient is on IV Versed and IV Propofol. Objective - Vital Signs Vital signs: Vital Signs Temp 99 F 06/29/24 12:00 Pulse 82 06/29/24 13:00 Resp 27 H 06/29/24 13:00 BP 89/48 06/29/24 13:00 Pulse Ox 94 L 06/29/24 13:00 FiO2 50 06/29/24 12:00 Intake & Output 06/28/24 06/29/24 06/29/24 18:59 06:59 18:59 Intake Total 2311.514 2774.435 1188.695 Output Total 1305 1530 290 Balance 8648.806 6151.435 898.695 Weight 122.4 kg 122.4 kg Intake: IV 1233 1536 568 0.9 @ KVO 100 Ampicillin-Sulbactam 3 gm 100 In Sodium Chloride 0.9% 100 ml @ 200 mls/hr IVPB Q6HR [facility] Rx#:[id number] PHENobarbitaL sodium 507 50 mg In Sodium Chloride 0.9 % 50 ml @ 161.7 mls/hr IV ONCE ONE Rx#:[id number] Piperacillin-Tazobactam 3 100 100 .375 gm In Sodium Chloride 0.9% 100 ml @ 25 mls/hr IVPB Q8H [facility] Rx#: [id number] Sodium Chloride 0.9% 1, 600 900 300 000 ml @ 75 mls/hr IV . [id number] [facility] Rx#:[id number] Vancomycin 1,750 mg In 500 500 Sodium Chloride 0.9% 500 ml 500 ml @ 167 mls/hr IVPB ONCE ONE Rx#: [id number] a-line 3ml 33 36 18 Intake, IV Titration 538.514 698.435 335.695 Amount Midazolam HCl 50 mg In 144.083 172.849 44.683 Sodium Chloride 0.9% 40 ml @ 1 MG/HR 1 mls/hr IV .Q24H [facility] Rx#:[id number] Norepinephrine 4 mg In 36.895 118.985 149.166 Sodium Chloride 0.9% 250 ml @ 0.03 MCG/KG/MIN 12. 996 mls/hr IV .[id number] [facility] Rx#:[id number] propofoL 1,000 mg In 357.536 406.601 141.846 Empty Bag 1 bag @ 15 MCG/ KG/MIN 9.846 mls/hr IV . [id number] [facility] Rx#:[id number] Tube Feeding 450 540 225 Other 90 60 Output: Urine 1305 1530 290 Other: Voiding Method Indwelling Catheter Indwelling Catheter Indwelling Catheter ABP, PAP, CO, CI - Last Documented Arterial Blood Pressure 88/57 - Exam General: Lying in bed and is not in acute distress. Lung: Intubated on a ventilator. Neuro: Is very limited. Is on IV Versed and IV Propofol max dose. Is comatose. I manually opened eyes and primary gaze is midline. Pupils are round, 2mm and reactive to light. No spontaneous movement. Some of the workup at this hospital visit consisted of: White blood cell is within normal limits Level is for 96 Calcium is 6.1 and ionized calcium is 4.7 Magnesium is 1.2 POC glucose is 56 and repeated is in the low 100s. Sodium is within normal limits UDS is positive for benzo as well as marijuana. Routine EEG on 06/26/2024: Is abnormal. The background slowing is suggestive of mild encephalopathy likely due to toxic-metabolic derragement as well as medication use (IV Propofol, Versed and Ativan). Otherwise, no focal slowing, epileptiform discharges or seizures. CT head: No acute intracranial hemorrhage or midline shift is seen. Vauge areas of low attenuation in the bilateral cerebellar hemispheres slightly more promi nent on the right are identified. Ischemic injury is in the differential. Other etiologies not excluded. I personally reviewed CT and I personally could not rule out artifact as well. - Labs CBC & Chem 7: 06/29/24 04:08 06/29/24 04:08 Labs: Abnormal Lab Results - Last 24 Hours (Table) 06/29/24 06/29/24 06/29/24 Range/Units 04:08 04:08 04:08 WBC 14.3 H (3.8-10.6) k/uL RBC 3.61 L (3.80-5.40) m/uL Hgb 11.2 L (11.4-16.0) gm/dL Neutrophils # 12.4 H (1.3-7.7) k/uL ABG pCO2 30 L (35-45) mmHg ABG pO2 70 L (83-108) mmHg ABG HCO3 19 L (21-25) mmol/L Hemoglobin 11.2 L (11.4-16.0) gm/dL Chloride 114 H (98-107) mmol/L Carbon Dioxide 19 L (22-30) mmol/L BUN 5 L (7-17) mg/dL Glucose 124 H (74-99) mg/dL Creatine Kinase 302 H (30-135) U/L Microbiology - Last 24 Hours (Table) 06/27/24 11:10 Gram Stain - Preliminary Sputum Sputum Culture - Preliminary Staphylococcus aureus 06/28/24 08:50 Gram Stain - Preliminary Sputum Assessment and Plan Assessment: This is a 28-year-old woman with a history of borderline personality disorder who presented emergency department because of a suicidal attempt by taking multiple Wellbutrin tablets. During this hospital visit the patient is agitated, restless tachycardic hypertensive requiring Ativan, Librium Benadryl and Haldol. She was intubated on ventilator and she required IV propofol Versed and today when was weaned down nurse felt maybe there was a seizure-like activity but upon asking the nurse it seems that the patient was having tremor and no convulsion Questionable few episode of seizure-like activity: Unsure if patient is having withdrawing symptoms. If she did have a seizure its likely provoked due to her metabolic derangement. She had a prior EEG 2 days ago which was negative for any seizure discharges. Also today had repeat EEG and negative for seizure. Suicidal attempt Hypoglycemia Hypomagnesium History of borderline personality disorder Plan: CT of the head: showed fague hypoattenuation in the bilateral cerebellum and r/o stroke. I feels possible artifact. But will get a repeat CT head. Patient is on Valproic acid 500 mg twice daily which helps with the seizures as well as the mood Med Ativan 1 mg every hour as needed for seizures Seizure precaution and pads Psychiatry is consulted Please avoid any further hypoglycemia and will defer correction of the electrolyte imbalance to primary and ICU team. Will defer the rest of the medical management to primary other specialist Plan discussed with the ICU nurse. Time with Patient: Less than 30
--- NOTE | 2024-06-29 14:51 | P.PN ---
Subjective Progress Note Date: 06/29/24 Hospital Course: 28-year-old woman with medical history of anxiety and borderline personality d isorder on Wellbutrin presented after intentional ingestion of Wellbutrin. Upon arrival patient was afebrile, 148/96, heart rate 83. Patient subsequently received activated charcoal, was started on IV fluids, and given a total of 7 mg of Ativan while on continuous telemetry, with heart rates increasing to the 130s to 140s. The ER provider did contact poison control control who recommended medical monitoring until patient is stable for transfer to the mental health unit. Review of lab work shows normal CBC, CO2 of 20, ALT of 91, negative troponin, normal lactic acid, negative salicylate level, alcohol level, Tylenol level. Initial EKG shows normal sinus rhythm with a short MI interval and right axis deviation. Patient was admitted to the cardiac selective floor with telemetry, with low threshold for ICU escalation. RR called on 06/27, patient was extremely agitated hypertensive and tachycardic despite receiving 21 mg of Ativan as well as standing Librium overnight. During the rapid response, patient received an additional 8 mg of Ativan, 50 mg of Benadryl, 5 mg of Haldol. Despite these measures, patient was still extremely agitated requiring 4 point restraints. At this point, decision was made to intubate and sedate the patient at bedside and start the patient on an IV be nzodiazepine drip, propofol drip. Patient was intubated using 200 of propofol, 2 of Nimbex. Initial intubation resulted in right mainstem intubation but resolved after pulling back ET tube. Patient was started on midazolam drip in the ICU, propofol drip. She was saturating well on vent settings. 06/28: patient had sedation holidays , had decreased emesis, was suctioned, sedation holiday stopped. Patient was started on low-dose Levophed overnight. Patient was restarted on propofol, continued on Versed. Started spiking fever 06/28 around 8 in the morning ,she was also started on Zosyn, sputum cultures growing presumptive Staph aureus, added vancomycin. 06/29, yesterday neurology was consulted for concern for possible seizure, patient was started on Depakote, tremoring was reported. CT head showed no acute hemorrhage, areas of low-attenuation in the bilateral cerebellar hemisphere slightly more prominent on the right, per neurology, could be artifact. EEG done in was abnormal, showed background slowing suggestive of mild encephalopathy likely due to toxic metabolic derangement as well as medication use, no epileptiform discharges, seizures. Poison control recommended phenobarbital, and also 570 mg IV once 06/2724 ID consulted. Started on Unasyn on 06/29 Pertinent Imaging: Bibasilar acute infiltrates central vascular congestion, small bilateral effusion Subjective: Intubated and sedated Vitals Signs Reviewed. General: [, Sedated, morbidly obese Derm: Hypokalemia Hypomagnesemia, [dry] Head: [atraumatic], [normocephalic], [symmetric] Eyes: [EOMI], [no lid lag], [anicteric sclera] Mouth: [no lip lesion], [mucus membranes moist] Cardiovascular: [S1S2 reg], [no murmur] Lungs: [CTA bilateral], [no rhonchi, no rales] , [no accessory muscle use] Abdominal: [soft], [ nontender to palpation], [no guarding], [no appreciable organomegaly] Ext: [no gross muscle atrophy], [no edema], [no contractures] Neuro: [ CN II-XI grossly intact], [no focal neuro deficits] Psych: [Alert], [oriented], [appropriate affect] Data Reviewed Today: Pertinent Labs WBC 14.3, hemoglobin 9.2, ABG with pH of 7.4, pCO2 20, pO2 20, sodium and potassium normal, bicarb 19, creatinine 0.59, glucose is well- controlled, CK3 102 Assessment and Plan: Acute respiratory failure s/p intubation for airway protection 06/27 Sputum cx growing Staph aureus Sepsis likely secondary to aspiration pneumonia Intentional overdose with Wellbutrin Metabolic acidosis Hypokalemia Hypomagnesemia Anxiety Borderline personality disorder -Patient remains in ICU on IV benzodiazepine and propofol drip -Seizure precautions, neurology consulted, EEG: Background slowing, no epileptiform discharge or seizure -1 dose of phenobarbital 06/29 -Continue midazolam drip, uptitrate as warranted -Continue propofol drip -ID consulted, patient started on Unasyn -Psychiatry consulted -Pulmonology/ICU care and recommendations appreciated -Electrolytes replaced, follow-up levels ordered -daily CXR DVT ppx: Heparin Code status: Full code Anticipated discharge place: Pending clinical course Anticipated discharge time: Pending clinical course Objective - Vital Signs Vital signs: Vital Signs Temp 99 F 06/29/24 12:00 Pulse 82 06/29/24 13:00 Resp 27 H 06/29/24 13:00 BP 89/48 06/29/24 13:00 Pulse Ox 94 L 06/29/24 13:00 FiO2 50 06/29/24 12:00 Intake & Output 06/28/24 06/29/24 06/29/24 18:59 06:59 18:59 Intake Total 2311.514 2774.435 1395.410 Output Total 1305 1530 290 Balance 9176.277 2865.435 1105.410 Weight 122.4 kg 122.4 kg Intake: IV 1233 1536 568 0.9 @ KVO 100 Ampicillin-Sulbactam 3 gm 100 In Sodium Chloride 0.9% 100 ml @ 200 mls/hr IVPB Q6HR [facility] Rx#:[id number] PHENobarbitaL sodium 507 50 mg In Sodium Chloride 0.9 % 50 ml @ 161.7 mls/hr IV ONCE ONE Rx#:[id number] Piperacillin-Tazobactam 3 100 100 .375 gm In Sodium Chloride 0.9% 100 ml @ 25 mls/hr IVPB Q8H [facility] Rx#: [id number] Sodium Chloride 0.9% 1, 600 900 300 000 ml @ 75 mls/hr IV . [id number] [facility] Rx#:[id number] Vancomycin 1,750 mg In 500 500 Sodium Chloride 0.9% 500 ml 500 ml @ 167 mls/hr IVPB ONCE ONE Rx#: [id number] a-line 3ml 33 36 18 Intake, IV Titration 538.514 698.435 542.410 Amount Midazolam HCl 50 mg In 144.083 172.849 94.683 Sodium Chloride 0.9% 40 ml @ 1 MG/HR 1 mls/hr IV .Q24H [facility] Rx#:[id number] Norepinephrine 4 mg In 36.895 118.985 149.166 Sodium Chloride 0.9% 250 ml @ 0.03 MCG/KG/MIN 12. 996 mls/hr IV .[id number] [facility] Rx#:[id number] propofoL 1,000 mg In 357.536 406.601 298.561 Empty Bag 1 bag @ 15 MCG/ KG/MIN 9.846 mls/hr IV . [id number] [facility] Rx#:[id number] Tube Feeding 450 540 225 Other 90 60 Output: Urine 1305 1530 290 Other: Voiding Method Indwelling Catheter Indwelling Catheter Indwelling Catheter ABP, PAP, CO, CI - Last Documented Arterial Blood Pressure 88/57 - Labs CBC & Chem 7: 06/29/24 04:08 06/29/24 04:08 Labs: Abnormal Lab Results - Last 24 Hours (Table) 06/29/24 06/29/24 06/29/24 Range/Units 04:08 04:08 04:08 WBC 14.3 H (3.8-10.6) k/uL RBC 3.61 L (3.80-5.40) m/uL Hgb 11.2 L (11.4-16.0) gm/dL Neutrophils # 12.4 H (1.3-7.7) k/uL ABG pCO2 30 L (35-45) mmHg ABG pO2 70 L (83-108) mmHg ABG HCO3 19 L (21-25) mmol/L Hemoglobin 11.2 L (11.4-16.0) gm/dL Chloride 114 H (98-107) mmol/L Carbon Dioxide 19 L (22-30) mmol/L BUN 5 L (7-17) mg/dL Glucose 124 H (74-99) mg/dL Creatine Kinase 302 H (30-135) U/L Microbiology - Last 24 Hours (Table) 06/27/24 11:10 Gram Stain - Preliminary Sputum Sputum Culture - Preliminary Staphylococcus aureus 06/28/24 08:50 Gram Stain - Preliminary Sputum
[2024-06-29 17:35] LABS: Glucose,Whole Blood 82 mg/dL (70-110)
--- NOTE | 2024-06-29 18:37 | CT ---
EXAMINATION TYPE: CT brain wo con DATE OF EXAM: 06/29/2024 6:29 PM COMPARISON: 06/28/2024 CLINICAL INDICATION: Female, 28 years old with history of ?hypodenisity in cerebellum on prior ct, un responsive, seizures TECHNIQUE: CT of the brain is performed utilizing 3 mm thick sections through the posterior fossa and 3 mm thick sections through the remaining calvarium. Study is performed within 24 hours of arrival to the hospital. Contrast used: mL of , (none if empty) CT DLP: 1139.4 mGycm, Automated exposure control for dose reduction was used. FINDINGS: No abnormal hyperdensity is present to suggest an acute intracranial hemorrhage. No mass lesion is evident. No acute infarcts are evident. Ventricles and sulci are appropriate for the patient age. There is a retention cyst within the anterior right maxillary sinus. Paranasal sinuses and mastoid ai r cells within the [id number] are otherwise clear. Patient is intubated and has an oral gastric tube. IMPRESSION: 1. No acute intracranial process. Follow up MRI can be performed as clinically indicated. No signifi cant interval change from comparison [facility], , 06/29/2024 6:35 PM
--- NOTE | 2024-06-29 21:44 | EEG ---
ELECTROENCEPHALOGRAM REPORT CLINICAL HISTORY: This is a 28-year-old woman with a history of suicidal attempt by overdosing the Wellbutrin, who has seizure-like activity. The video EEG is obtained to evaluate for seizure epileptiform activity. RELEVANT MEDICATIONS: 1. IV Versed. 2. IV propofol. 3. Ativan. 4. Depakote. EEG TYPE: This is a routine 21-channel EEG with video using the 10/20 electrode placement system. DESCRIPTION: The patient is intubated on a ventilator. The background consists of yfg-pk-fwiksegn voltages of 1,5 to 2.5 Hz activity, intermixed with theta activity. There was no physiological stage 2 sleep architecture. Also, in the background is interchanged, so there is delta activity intermixed with delta with theta, that has interchanged with diffuse suppression lasting 1 to 2 seconds. There is no focal slowing. There is diffuse uangocij-xu-rasyhu myogenic artifact. Interictal and ictal are none. ACTIVATION PROCEDURE: Photic stimulation and hyperventilation are not performed. CLINICAL INTERPRETATION: This is an abnormal routine EEG. The background slowing is suggestive of severe encephalopathy. Severe encephalopathy is likely due to toxic metabolic derangement as well as medication-induced. The diffuse suppression is likely due to medication- induced (Versed as well as Ativan and propofol). Otherwise, there is no focal slowing, epileptiform discharge, or seizure on the EEG. Clinical correlation is recommended. MMODL / CAION: [id number] /
[2024-06-30 00:06] LABS: Glucose,Whole Blood 99 mg/dL (70-110)
[2024-06-30 04:51] LABS: ABG Base Excess -3.1 mmol/L; ABG HCO3 21 mmol/L (21-25); ABG Oxygen Saturation 97.7 % (94-97); ABG PCO2 34 mmHg (35-45); ABG PO2 96 mmHg (83-108); ABG TCO2 22 mmol/L (19-24)
[2024-06-30 04:52] LABS: Allen Test Performed? no
[2024-06-30] MEDS ORDERED: VANCOMYCIN TROUGH DUE 1 EACH MISC MISCELLANE ONE (05:00)
[2024-06-30 05:09] LABS: Glucose,Whole Blood 87 mg/dL (70-110)
[2024-06-30 05:25] LABS: Basophils % (A) 0 %; Eosinophils % (A) 0 %; HGB 9.9 gm/dL (11.4-16.0); Hypochromasia Slight; Lymphocytes % (A) 8 %; MCH 31.5 pg (25.0-35.0); MCHC 31.8 g/dL (31.0-37.0); Mean Platelet Volume 8.7; Monocytes # (A) 0.5 k/uL (0-1.0); Monocytes % (A) 4 %; Neutrophils # (A) 10.6 k/uL (1.3-7.7); Neutrophils % (A) 87 %; Platelet Count 191 k/uL (150-450); RBC 3.13 m/uL (3.80-5.40); RDW 13.9 % (11.5-15.5); WBC 12.1 k/uL (3.8-10.6)
--- NOTE | 2024-06-30 05:36 | XR ---
EXAMINATION TYPE: XR chest 1V portable DATE OF EXAM: 06/30/2024 CLINICAL HISTORY: Difficulty breathing progress study. TECHNIQUE: Single AP portable semiupright view of the chest is obtained. COMPARISON: Chest x-ray from one day earlier and older studies. FINDINGS: Stable endotracheal and orogastric tubes. There are persistent bibasilar opacities and central vascular congestion. Cardiac silhouette size is stable and within normal limits. Osseous structures are intact. IMPRESSION: Bibasilar acute infiltrates and/or atelectasis with central vascular congestion and small bilateral effusion redemonstrated. No significant change from one day earlier. [facility], , 06/30/2024 5:34 AM
[2024-06-30 05:56] LABS: African American GFR (CKD) >90 (>60 ml/min/1.73 sqM); Anion Gap 6 mmol/L; Blood Urea Nitrogen 6 mg/dL (7-17); Calcium 7.8 mg/dL (8.4-10.2); Carbon Dioxide 21 mmol/L (22-30); Chloride 112 mmol/L (98-107); Creatine Kinase 248 U/L (30-135); Glucose 81 mg/dL (74-99); Non-African American GFR(CKD) >90 (>60 ml/min/1.73 sqM); Potassium 3.8 mmol/L (3.5-5.1); Sodium 139 mmol/L (137-145)
[2024-06-30] MEDS: POTASSIUM CHLORIDE 10 MEQ in WATER FOR INJECTION 1 100ML.BAG IVPB SCH (06:38)
--- NOTE | 2024-06-30 07:44 | P.CONS ---
History of Present Illness - Reason for Consult Consult date: 06/29/24 Bacteremia Requesting physician: Marcela Cheatham - Chief Complaint Fever x 2 days - History of Present Illness Patient is a 28-year-old female with a past medical history of dependent for reflux, anxiety and depression presenting to the hospital 4 days ago after after the patient overdosed on 50-90 Wellbutrin tablets she was complaining of lightheadedness, the patient did receive activated charcoal and was admitted to the medical floor sepsis the patient become more agitated and restless and apparently intubated and the patient was transferred to the ICU on 06/26/2024 patient started running a fever as of yesterday morning with a temperature of 102.3 F and did have a temperature of 99.8 degrees Fahrenheit, this morning patient remains to be intubated on the vent FiO2 is currently at 50% mildly hypotensive requiring pressor support patient did have white count of 14.3 with a left shift creatinine 0.59 electrolyte has been normal patient sputum came back positive for Staph aureus blood cultures are pending, patient did have a chest x-ray bibasilar acute infiltrate and or atelectasis with central venous congestion infectious was consulted today for further management of antibiotic therapy most information has been obtained from review the chart and talking to nursing staff the patient is currently debated on the right mother was at the bedside Review of Systems Positive points has been mentioned in HPI complete review could not be obtained because patient intubated on the vent Past Medical History Past Medical History: No Reported History, GERD/Reflux Additional Past Medical History / Comment(s): Does not take any meds for reflux at this time. History of Any Multi-Drug Resistant Organisms: None Reported Past Surgical History: No Surgical Hx Reported Past Anesthesia/Blood Transfusion Reactions: No Reported Reaction Past Psychological History: Depression Smoking Status: Never smoker Past Alcohol Use History: None Reported Past Drug Use History: Marijuana - Past Family History Mother Family Medical History: Hypertension Additional Family Medical History / Comment(s): Bipolar, depression, and bleeding ulcers. Father Family Medical History: Cancer Additional Family Medical History / Comment(s): of pancreatic cancer. Medications and Allergies Home Medications Medication Instructions Recorded Confirmed Type Desvenlafaxine [Pristiq ER] 100 mg PO DAILY 06/25/24 06/25/24 History Famotidine [Pepcid] 20 mg PO BID 06/25/24 06/25/24 History Propranolol HCl 10 mg PO DAILY PRN 06/25/24 06/25/24 History buPROPion XL [Wellbutrin XL] 150 mg PO DAILY 06/25/24 06/25/24 History lamoTRIgine 200 mg PO DAILY 06/25/24 06/25/24 History Allergies Allergy/AdvReac Type Severity Reaction Status Date / Time adhesive Allergy Rash/Hives Verified 06/25/24 14:54 Physical Exam Vitals: Vital Signs Temp Pulse Resp BP Pulse Ox FiO2 06/29/24 07:54 50 06/29/24 07:00 79 35 H 100/84 95 06/29/24 06:30 73 21 95/61 96 06/29/24 06:00 72 22 95/65 98 06/29/24 05:30 71 26 H 104/85 99 06/29/24 05:00 69 28 H 90/60 98 06/29/24 04:30 69 26 H 89/60 96 06/29/24 04:11 50 06/29/24 04:00 68 26 H 92/64 98 50 06/29/24 03:30 97.9 F 66 22 91/65 96 06/29/24 03:00 66 22 87/57 93 L 06/29/24 02:30 65 22 95/49 91 L 06/29/24 02:00 65 24 93/57 98 06/29/24 01:30 70 22 93/57 97 06/29/24 01:00 70 25 H 95/62 97 06/29/24 00:30 70 28 H 92/53 97 06/29/24 00:03 50 06/29/24 00:00 74 28 H 93/58 96 50 06/28/24 23:30 70 25 H 94/55 97 06/28/24 23:00 72 27 H 90/57 96 06/28/24 22:30 70 22 88/54 97 06/28/24 22:06 75 23 88/54 97 06/28/24 22:00 74 21 86/51 98 06/28/24 21:30 77 22 93/65 97 06/28/24 21:00 78 21 90/52 97 06/28/24 20:30 76 20 91/56 97 06/28/24 20:11 50 06/28/24 20:00 99 F 75 20 97/60 98 50 06/28/24 19:30 75 20 90/54 98 06/28/24 19:00 77 28 H 101/48 97 06/28/24 18:30 79 26 H 101/48 06/28/24 18:00 78 28 H 101/48 06/28/24 17:30 79 26 H 113/48 95 06/28/24 17:00 77 29 H 139/77 96 06/28/24 16:30 95 38 H 101/48 97 06/28/24 16:00 99.8 F H 86 27 H 107/76 99 50 06/28/24 15:55 50 06/28/24 15:30 87 35 H 91/57 99 06/28/24 15:00 86 37 H 118/54 06/28/24 14:30 86 29 H 130/56 93 L 06/28/24 14:00 85 26 H 123/43 95 06/28/24 13:30 98 32 H 126/55 96 06/28/24 13:00 99 34 H 128/70 98 06/28/24 12:30 93 37 H 122/47 99 06/28/24 12:00 102.2 F H 86 37 H 117/61 99 50 06/28/24 11:57 50 06/28/24 11:30 98 68 H 115/56 97 06/28/24 11:00 93 26 H 113/55 96 06/28/24 10:30 92 30 H 105/57 94 L Intake and Output 06/28/24 06/29/24 06/29/24 22:59 06:59 14:59 Intake Total 7324.956 3724.627 389.513 Output Total 750 1155 50 Balance 1118.808 186.627 339.513 Intake: IV 999 624 78 Piperacillin-Tazobactam 3 100 .375 gm In Sodium Chloride 0.9% 100 ml @ 25 mls/hr IVPB Q8H [facility] Rx#: [id number] Sodium Chloride 0.9% 1, 375 600 75 000 ml @ 75 mls/hr IV . [id number] [facility] Rx#:[id number] Vancomycin 1,750 mg In 500 Sodium Chloride 0.9% 500 ml 500 ml @ 167 mls/hr IVPB ONCE ONE Rx#: [id number] a-line 3ml 24 24 3 Intake, IV Titration 489.808 357.627 266.513 Amount Midazolam HCl 50 mg In 115.733 106.116 44.683 Sodium Chloride 0.9% 40 ml @ 1 MG/HR 1 mls/hr IV .Q24H [facility] Rx#:[id number] Norepinephrine 4 mg In 75.232 43.753 144.256 Sodium Chloride 0.9% 250 ml @ 0.03 MCG/KG/MIN 12. 996 mls/hr IV .[id number] [facility] Rx#:[id number] propofoL 1,000 mg In 298.843 207.758 77.574 Empty Bag 1 bag @ 15 MCG/ KG/MIN 9.846 mls/hr IV . [id number] [facility] Rx#:[id number] Tube Feeding 350 360 45 Other 30 Output: Urine 750 1155 50 Other: Voiding Method Indwelling Catheter Indwelling Catheter Weight 122.4 kg ABP, PAP, CO, CI - Last 8 Hours Arterial Blood Pressure 123/86 Arterial Blood Pressure 103/70 Arterial Blood Pressure 99/70 Arterial Blood Pressure 93/65 Arterial Blood Pressure 94/63 Arterial Blood Pressure 101/57 Arterial Blood Pressure 101/57 Arterial Blood Pressure 103/63 Arterial Blood Pressure 102/61 Arterial Blood Pressure 92/52 GENERAL DESCRIPTION: Young female intubated on the vent HEENT: Shows Pallor , no scleral icterus. Oral mucous membrane is dry. NECK: Trachea central, no thyromegaly. LUNGS: Unlabored breathing. Decreased breath sounds at the base HEART: S1, S2, regular rate and rhythm. No loud murmur ABDOMEN: Soft, no tenderness , guarding or rigidity, no organomegaly EXTREMITIES: No edema of feet. SKIN: No rash, no masses palpable. NEUROLOGICAL: The patient is sedated on the vent Results CBC & Chem 7: 06/30/24 05:00 06/30/24 05:00 Labs: Abnormal Lab Results - Last 24 Hours (Table) 06/29/24 06/29/24 06/29/24 Range/Units 04:08 04:08 04:08 WBC 14.3 H (3.8-10.6) k/uL RBC 3.61 L (3.80-5.40) m/uL Hgb 11.2 L (11.4-16.0) gm/dL Neutrophils # 12.4 H (1.3-7.7) k/uL ABG pCO2 30 L (35-45) mmHg ABG pO2 70 L (83-108) mmHg ABG HCO3 19 L (21-25) mmol/L Hemoglobin 11.2 L (11.4-16.0) gm/dL Chloride 114 H (98-107) mmol/L Carbon Dioxide 19 L (22-30) mmol/L BUN 5 L (7-17) mg/dL Glucose 124 H (74-99) mg/dL Creatine Kinase 302 H (30-135) U/L Microbiology - Last 24 Hours (Table) 06/28/24 08:50 Gram Stain - Preliminary Sputum 06/27/24 11:10 Gram Stain - Preliminary Sputum Sputum Culture - Preliminary Presumptive Staph aureus Assessment and Plan (1) Sepsis Current Visit: Yes Status: Acute Code(s): A41.9 - SEPSIS, UNSPECIFIED ORGANISM SNOMED Code(s): 77824450 (2) Pneumonia Current Visit: Yes Status: Acute Code(s): J18.9 - PNEUMONIA, UNSPECIFIED ORGANISM SNOMED Code(s): 235117138 (3) MSSA (methicillin susceptible Staphylococcus aureus) infection Current Visit: Yes Status: Acute Code(s): A49.01 - METHICILLIN SUSCEP STAPH INFECTION, UNSP SITE SNOMED Code(s): 988139598 Plan: 1patient presenting the hospital with drug overdose with subsequent agitation respiratory distress requiring intubation concerning for possible aspiration pneumonia sputum is now growing MSSA in this patient who did have features of sepsis with fever elevated white count and hypotension requiring low-dose pressor support 2-we will discontinue vancomycin and Zosyn 3-start the patient on Unasyn 3 g every 6 hours We will follow on clinical condition and cultures to further adjust medication if needed Thank you for this consultation we will follow the patient along with you Dictation was produced using [employer] dictation software. please excuse any grammatical, word or spelling errors. Time with Patient: Greater than 30
[2024-06-30 11:52] LABS: Glucose,Whole Blood 82 mg/dL (70-110)
[2024-06-30] MEDS ORDERED: ARTIFICIAL TEARS OINTMENT 3.5 GM TUBE BOTH EYES PRN (13:03)
--- NOTE | 2024-06-30 13:07 | P.PN ---
Subjective Progress Note Date: 06/30/24 Hospital Course: 28-year-old woman with medical history of anxiety and borderline personality d isorder on Wellbutrin presented after intentional ingestion of Wellbutrin. Upon arrival patient was afebrile, 148/96, heart rate 83. Patient subsequently received activated charcoal, was started on IV fluids, and given a total of 7 mg of Ativan while on continuous telemetry, with heart rates increasing to the 130s to 140s. The ER provider did contact poison control control who recommended medical monitoring until patient is stable for transfer to the mental health unit. Review of lab work shows normal CBC, CO2 of 20, ALT of 91, negative troponin, normal lactic acid, negative salicylate level, alcohol level, Tylenol level. Initial EKG shows normal sinus rhythm with a short HI interval and right axis deviation. Patient was admitted to the cardiac selective floor with telemetry, with low threshold for ICU escalation. RR called on 06/27, patient was extremely agitated hypertensive and tachycardic despite receiving 21 mg of Ativan as well as standing Librium overnight. During the rapid response, patient received an additional 8 mg of Ativan, 50 mg of Benadryl, 5 mg of Haldol. Despite these measures, patient was still extremely agitated requiring 4 point restraints. At this point, decision was made to intubate and sedate the patient at bedside and start the patient on an IV be nzodiazepine drip, propofol drip. Patient was intubated using 200 of propofol, 2 of Nimbex. Initial intubation resulted in right mainstem intubation but resolved after pulling back ET tube. Patient was started on midazolam drip in the ICU, propofol drip. She was saturating well on vent settings. 06/28: patient had sedation holidays , had decreased emesis, was suctioned, sedation holiday stopped. Patient was started on low-dose Levophed overnight. Patient was restarted on propofol, continued on Versed. Started spiking fever 06/28 around 8 in the morning ,she was also started on Zosyn, sputum cultures growing presumptive Staph aureus, added vancomycin. 06/29, yesterday neurology was consulted for concern for possible seizure, patient was started on Depakote, tremoring was reported. CT head showed no acute hemorrhage, areas of low-attenuation in the bilateral cerebellar hemisphere slightly more prominent on the right, per neurology, could be artifact. EEG done in was abnormal, showed background slowing suggestive of mild encephalopathy likely due to toxic metabolic derangement as well as medication use, no epileptiform discharges, seizures. Poison control recommended phenobarbital, and also 570 mg IV once 06/2724 ID consulted. Started on Unasyn on 06/29 06/30: Norepinephrine on hold, patient is afebrile since 06/29 8 AM; spoke with poison control who recommended considering GI consult for possible EGD. Patient continued to have seizure activity due to concern for Wellbutrin capsule being extended release and still remaining in the stomach with systemic release. Disc ussed with neurology, no concern for seizure, will hold IR consult for now. Pertinent Imaging: Bibasilar acute infiltrates central vascular congestion, small bilateral effusion Subjective: Intubated and sedated Vitals Signs Reviewed. General: [, Sedated, morbidly obese Derm: Hypokalemia Hypomagnesemia, [dry] Head: [atraumatic], [normocephalic], [symmetric] Eyes: [EOMI], [no lid lag], [anicteric sclera] Mouth: [no lip lesion], [mucus membranes moist] Cardiovascular: [S1S2 reg], [no murmur] Lungs: [CTA bilateral], [no rhonchi, no rales] , [no accessory muscle use] Abdominal: [soft], [ nontender to palpation], [no guarding], [no appreciable organomegaly] Ext: [no gross muscle atrophy], [no edema], [no contractures] Neuro: [ CN II-XI grossly intact], [no focal neuro deficits] Psych: [Alert], [oriented], [appropriate affect] Data Reviewed Today: Pertinent Labs WBC 12.1, hemoglobin 9.9, platelet count normal, ABG with pH of 7.4, pCO2 34, pO2 96, sodium and potassium normal, bicarb 21, creatinine 0.45, glucose in the 80s, Assessment and Plan: Acute respiratory failure s/p intubation for airway protection 06/27 Sputum cx growing Staph aureus Sepsis likely secondary to aspiration pneumonia Intentional overdose with Wellbutrin Metabolic acidosis Hypokalemia Hypomagnesemia Anxiety Borderline personality disorder -Patient remains in ICU on IV benzodiazepine and propofol drip -Seizure precautions, neurology consulted, EEG: Background slowing, no epileptiform discharge or seizure -1 dose of phenobarbital 06/29 -Continue midazolam drip, uptitrate as warranted -Continue propofol drip -ID consulted, patient started on Unasyn 06/29 -Psychiatry consulted -Pulmonology/ICU care and recommendations appreciated -Electrolytes replaced, follow-up levels ordered -daily CXR Acute anemia -No signs of bleeding -Likely related to critical illness -Ordered iron profile, B12, folate, FOBT -No periods reported by nursing staff DVT ppx: Heparin Code status: Full code Anticipated discharge place: Pending clinical course Anticipated discharge time: Pending clinical course Objective - Vital Signs Vital signs: Vital Signs Temp 98.1 F 06/30/24 12:00 Pulse 77 06/30/24 12:30 Resp 31 H 06/30/24 12:30 BP 87/52 06/30/24 12:30 Pulse Ox 94 L 06/30/24 12:30 FiO2 60 06/30/24 12:10 Intake & Output 06/29/24 06/30/24 06/30/24 18:59 06:59 18:59 Intake Total 2618.066 2416.109 1171.435 Output Total 465 1060 350 Balance 2153.066 1356.109 821.435 Weight 122.4 kg 124.1 kg 124.1 kg Intake: IV 1256 1094 660 0.9 @ KVO 220 130 70 Ampicillin-Sulbactam 3 gm 200 100 In Sodium Chloride 0.9% 100 ml @ 200 mls/hr IVPB Q6HR [facility] Rx#:[id number] PHENobarbitaL sodium 507 50 mg In Sodium Chloride 0.9 % 50 ml @ 161.7 mls/hr IV ONCE ONE Rx#:[id number] Potassium Chloride 10 meq 100 In Water For Injection 1 100ml.bag @ 100 mls/hr IVPB Q1H [facility] Rx#: [id number] Sodium Chloride 0.9% 1, 750 925 375 000 ml @ 75 mls/hr IV . [id number] [facility] Rx#:[id number] a-line 3ml 36 39 15 Intake, IV Titration 819.066 828.109 285.435 Amount Midazolam HCl 50 mg In 136.683 201.50 96.00 Sodium Chloride 0.9% 40 ml @ 1 MG/HR 1 mls/hr IV .Q24H [facility] Rx#:[id number] Norepinephrine 4 mg In 183.822 149.381 Sodium Chloride 0.9% 250 ml @ 0.03 MCG/KG/MIN 12. 996 mls/hr IV .[id number] [facility] Rx#:[id number] propofoL 1,000 mg In 498.561 477.228 189.435 Empty Bag 1 bag @ 15 MCG/ KG/MIN 9.846 mls/hr IV . [id number] [facility] Rx#:[id number] Tube Feeding 453 494 136 Other 90 90 Output: Urine 465 1060 350 Other: Voiding Method Indwelling Catheter Indwelling Catheter Indwelling Catheter ABP, PAP, CO, CI - Last Documented Arterial Blood Pressure 92/47 - Labs CBC & Chem 7: 06/30/24 05:00 06/30/24 05:00 Labs: Abnormal Lab Results - Last 24 Hours (Table) 06/30/24 06/30/24 06/30/24 Range/Units 04:46 05:00 05:00 WBC 12.1 H (3.8-10.6) k/uL RBC 3.13 L (3.80-5.40) m/uL Hgb 9.9 L (11.4-16.0) gm/dL Hct 31.0 L (34.0-46.0) % Neutrophils # 10.6 H (1.3-7.7) k/uL ABG pCO2 34 L (35-45) mmHg ABG O2 Saturation 97.7 H (94-97) % Hemoglobin 9.8 L (11.4-16.0) gm/dL Chloride 112 H (98-107) mmol/L Carbon Dioxide 21 L (22-30) mmol/L BUN 6 L (7-17) mg/dL Creatinine 0.45 L (0.52-1.04) mg/dL Calcium 7.8 L (8.4-10.2) mg/dL Creatine Kinase 248 H (30-135) U/L Microbiology - Last 24 Hours (Table) 06/28/24 14:46 Blood Culture - Preliminary Blood 06/28/24 14:31 Blood Culture - Preliminary Blood 06/28/24 14:11 Nasal Screen MRSA/MSSA - Final Nasal Swab Staphylococcus aureus,Not MRSA 06/27/24 11:10 Gram Stain - Preliminary Sputum Sputum Culture - Preliminary Staphylococcus aureus
--- NOTE | 2024-06-30 13:23 | P.PN ---
Subjective Progress Note Date: 06/30/24 I am following-up with patient and per the nurse, no further seizure-like activity or tremor. She continues to be on high dose of IV Propofol and Versed. Objective - Vital Signs Vital signs: Vital Signs Temp 98.1 F 06/30/24 12:00 Pulse 81 06/30/24 13:00 Resp 29 H 06/30/24 13:00 BP 95/48 06/30/24 13:00 Pulse Ox 93 L 06/30/24 13:00 FiO2 60 06/30/24 12:10 Intake & Output 06/29/24 06/30/24 06/30/24 18:59 06:59 18:59 Intake Total 2618.066 2416.109 1171.435 Output Total 465 1060 350 Balance 2153.066 1356.109 821.435 Weight 122.4 kg 124.1 kg 124.1 kg Intake: IV 1256 1094 660 0.9 @ KVO 220 130 70 Ampicillin-Sulbactam 3 gm 200 100 In Sodium Chloride 0.9% 100 ml @ 200 mls/hr IVPB Q6HR [facility] Rx#:[id number] PHENobarbitaL sodium 507 50 mg In Sodium Chloride 0.9 % 50 ml @ 161.7 mls/hr IV ONCE ONE Rx#:[id number] Potassium Chloride 10 meq 100 In Water For Injection 1 100ml.bag @ 100 mls/hr IVPB Q1H [facility] Rx#: [id number] Sodium Chloride 0.9% 1, 750 925 375 000 ml @ 75 mls/hr IV . [id number] [facility] Rx#:[id number] a-line 3ml 36 39 15 Intake, IV Titration 819.066 828.109 285.435 Amount Midazolam HCl 50 mg In 136.683 201.50 96.00 Sodium Chloride 0.9% 40 ml @ 1 MG/HR 1 mls/hr IV .Q24H [facility] Rx#:[id number] Norepinephrine 4 mg In 183.822 149.381 Sodium Chloride 0.9% 250 ml @ 0.03 MCG/KG/MIN 12. 996 mls/hr IV .[id number] [facility] Rx#:[id number] propofoL 1,000 mg In 498.561 477.228 189.435 Empty Bag 1 bag @ 15 MCG/ KG/MIN 9.846 mls/hr IV . [id number] [facility] Rx#:[id number] Tube Feeding 453 494 136 Other 90 90 Output: Urine 465 1060 350 Other: Voiding Method Indwelling Catheter Indwelling Catheter Indwelling Catheter ABP, PAP, CO, CI - Last Documented Arterial Blood Pressure 94/50 - Exam General: Lying in bed and is not in acute distress. Lung: Intubated on a ventilator. Neuro: Is very limited. Is on IV Versed 15mg/hr and IV Propofol 75mcg/kg/min. Is comatose. I manually opened eyes and primary gaze is midline. Pupils are round, 2mm and reactive to light. No spontaneous movement. Some of the workup at this hospital visit consisted of: White blood cell is within normal limits Level is for 96 Calcium is 6.1 and ionized calcium is 4.7 Magnesium is 1.2 POC glucose is 56 and repeated is in the low 100s. Sodium is within normal limits UDS is positive for benzo as well as marijuana. Routine EEG on 06/26/2024: Is abnormal. The background slowing is suggestive of mild encephalopathy likely due to toxic-metabolic derragement as well as medication use (IV Propofol, Versed and Ativan). Otherwise, no focal slowing, epileptiform discharges or seizures. CT head: No acute intracranial hemorrhage or midline shift is seen. Vauge areas of low attenuation in the bilateral cerebellar hemispheres slightly more prominent on the right are identified. Ischemic injury is in the differential. Other etiologies not excluded. I personally reviewed CT and I personally could not rule out artifact as well. Repeat CT of the head is reported as no acute intracranial process. No significant interval change from the comparison. Repeat EEG: Is abnormal. The background slowing is suggestive of severe encephalopathy. Severe encephalopathy is likely due to toxic metabolic derangement as well as medication induced. The diffuse suppression is likely due to medication induced (Versed as well as Ativan and propofol). Otherwise there is no focal slowing, OptiForm discharge or seizure on the EEG. - Labs CBC & Chem 7: 06/30/24 05:00 06/30/24 05:00 Labs: Abnormal Lab Results - Last 24 Hours (Table) 06/30/24 06/30/24 06/30/24 Range/Units 04:46 05:00 05:00 WBC 12.1 H (3.8-10.6) k/uL RBC 3.13 L (3.80-5.40) m/uL Hgb 9.9 L (11.4-16.0) gm/dL Hct 31.0 L (34.0-46.0) % Neutrophils # 10.6 H (1.3-7.7) k/uL ABG pCO2 34 L (35-45) mmHg ABG O2 Saturation 97.7 H (94-97) % Hemoglobin 9.8 L (11.4-16.0) gm/dL Chloride 112 H (98-107) mmol/L Carbon Dioxide 21 L (22-30) mmol/L BUN 6 L (7-17) mg/dL Creatinine 0.45 L (0.52-1.04) mg/dL Calcium 7.8 L (8.4-10.2) mg/dL Creatine Kinase 248 H (30-135) U/L Microbiology - Last 24 Hours (Table) 06/28/24 14:46 Blood Culture - Preliminary Blood 06/28/24 14:31 Blood Culture - Preliminary Blood 06/28/24 14:11 Nasal Screen MRSA/MSSA - Final Nasal Swab Staphylococcus aureus,Not MRSA 06/27/24 11:10 Gram Stain - Preliminary Sputum Sputum Culture - Preliminary Staphylococcus aureus Assessment and Plan Assessment: This is a 28-year-old woman with a history of borderline personality disorder who presented emergency department because of a suicidal attempt by taking multiple Wellbutrin tablets. During this hospital visit the patient is agitated, restless tachycardic hypertensive requiring Ativan, Librium Benadryl and Haldol. She was intubated on ventilator and she required IV propofol Versed and today when was weaned down nurse felt maybe there was a seizure-like activity but upon asking the nurse it seems that the patient was having tremor and no convulsion Questionable few episode of seizure-like activity: Unsure if patient is having withdrawing symptoms. If she did have a seizure its likely provoked due to her metabolic derangement. She had 2 EEG so far and negative for seizure or discharges--Overnight and today no further seizures or tremors. Is on High dose Versed and Propofol and is on Depakote. Suicidal attempt Hypoglycemia Hypomagnesium History of borderline personality disorder Plan: CT of the head: showed fague hypoattenuation in the bilateral cerebellum and r/o stroke. I feels possible artifact. Repeat CT is unchanged. I feel likely artifact. Recommend a repeat CT head within 2 days to assess for any changes. Patient is on Valproic acid 500 mg twice daily which helps with the seizures as well as the mood Med Ativan 1 mg every hour as needed for seizures Seizure precaution and pads Psychiatry is consulted Please avoid any further hypoglycemia and will defer correction of the electrolyte imbalance to primary and ICU team. Will defer the rest of the medical management to primary other specialist Plan discussed with the ICU nurse. Dr. Alfonso will resume neurology service tomorrow A.M. Time with Patient: Less than 30
--- NOTE | 2024-06-30 13:47 | P.PN ---
Subjective Progress Note Date: 06/30/24 Principal diagnosis: Acute respiratory failure secondary to Wellbutrin overdose This is a 28-year-old female with history of borderline personality disorder, presented yesterday to the ER with intentional suicidal attempt by taking multiple Wellbutrin tablets. According to the chart patient may have taken about 30 tablets. Patient stated to the ER physician that she does not want to live like this anymore, and she took many tablets of Wellbutrin. This was obviously a suicidal attempt. Patient received activated charcoal, patient was admitted to the medical floor, however this morning patient was becoming more and more agitated and restless, becoming more lightheaded, patient was getting quite tachycardic, and hypertensive. Has been receiving Ativan and Librium ov ernight, rapid response team responded to the patient this morning and she received additional 8 mg of Ativan, 50 mg of Benadryl and 5 mg of Haldol. Continued to be agitated and requiring 4 point restraints. At this point patient was intubated, placed on propofol drip and Versed drip, transferred to the ICU, and I saw her on consultation upon arrival. Patient required lines placement including a right femoral triple-lumen catheter and right radial arterial line which was done on emergency basis as the patient had very poor peripheral IV access. Patient was intubated and mechanically ventilated, she is on assist-control rate of 16 tidal volume 450 FiO2 50% and PEEP of 5 ABG showed a pO2 of 364 pCO2 of 39 pH of 7.29 she received 1 amp of bicarb. Patient was on propofol at 50 mcg/kg/min Versed at 3 mg/h IV fluid 0.9 at 75 cc/h and she is on the usual ICU protocol for GI and DVT prophylaxis she is also on ventilatory support, and will address nutritional support later today or tomorrow. CBC showed WBC of 6.3 hemoglobin 12.4 electrolytes showed low potassium of 3.0 being addressed accordingly, labs were all reviewed, test was negative. Drug screen showed positive for benzodiazepines and positive for marijuana. Otherwise was negative. Patient was evaluated today on 06/27/2024, remains in the ICU, intubated and mechanically ventilated. Patient is on assist-control rate of 16 tidal volume 450 FiO2 40% PEEP of 5 ABG showed a pO2 of 114 pCO2 38 pH of 7.43. Patient r emains on propofol at 50 mcg/kg/min she is also on Versed at 5 mg/h and earlier this morning the patient developed low urine output, and low blood pressure, she received multiple fluid boluses about 3 L, and she had to be placed on norepinephrine at 0.01 mcg/kg/min, I feel the hypotension is most likely related to excessive sedation, and her poor urine output is secondary to low blood pressure. Today I recommended that we cut down on her sedation and hopefully try to transition the patient to Precedex if possible. Apparently this was attempted but the patient woke up suddenly and vomited, and was noted to be restless and agitated has recommended that she goes back on Versed and propofol and the dose to be titrated. Patient has not had any seizure activity, she remains on GI and DVT prophylaxis, heparin subcu, remains on seizure precautions, labs today show WBC count of 4.9 hemoglobin 10.8, electrolytes were noted to be normal renal profile is normal creatinine 0.68 CPK elevated at 508 and this is very related to her recent seizure. Chest x-ray continues to show bibasilar atelectasis, doubt infiltrate. Although patient is set up for aspiration. The chest x-ray is not quite impressive to consider starting empiric antibiotics. Patient was seen today on 06/28/2024, patient remains in the ICU, intubated and mechanically ventilated, she is on assist-control rate of 16 tidal volume 400 FiO2 50% and PEEP of 5. Patient had an earlier blood gas on 40% FiO2 which showed a pO2 of 54 pCO2 29 pH of 7.50 and apparently the gas was done earlier shortly after she was witnessed to have an aspiration episode as she woke up and became agitated, she aspirated and developed right lower lobe atelectasis/infiltrate and possibly a small right-sided pleural effusion hence her FiO2 was increased to 50%. Patient is on propofol at 50 mcg/kg/min, Versed and 13 mg/h norepinephrine at 0.02 mcg/kg/min vital HP at 40/45 and IV fluid 0.9 normal saline at 75 cc/h. WBC count is 7.6 hemoglobin is 11.2, basic metabolic profile is relatively normal however her bicarb is 15 potassium is 2.8, anion gap is 6, and her creatinine kinase is 496. Sputum cultures today are showing presumptive Staph aureus, patient was placed earlier today on Zosyn and now I will go ahead and add vancomycin. Patient was seen today on 06/29/2024, patient remains in the ICU, intubated and mechanically ventilated, continues to have intermittent episodes of seizure-like activities although the patient is maximized on propofol at 50 mcg/kg/min on Versed at 15 mg/h patient is requiring norepinephrine at 0.04 mcg/kg/min she is on 0.9 normal saline at 75 cc/h and vital HP at 45 cc/h. CT of the head showed some questionable ischemic injury being addressed by neurology, and recommending eventually MRI. Patient remains on Zosyn and vancomycin for aspiration pneumonia and positive sputum for MRSA. Remains on assist-control rate of 16 tidal volume 400 FiO2 50% and PEEP of 5 ABG showed a pO2 of 70 pCO2 30 pH of 7.42. Hence no changes were made in vent settings. Infectious disease was consulted for her positive Staph aureus in the sputum in the meantime we will continue with vancomycin and Zosyn. Patient clearly had aspiration pneumonia chest x-ray is consistent with aspiration pneumonia. At this point in time the patient is not ready for any weaning as she gets extremely restless and agitated and again she has these episodes of seizure-like activities, Poison control recommended phenobarbital. Patient will be given a dose of phenobarbital x 1. Labs today show WBC is 14.3 hemoglobin 11.2, basic metabolic profile is normal electrolytes are normal bicarb is a bit low at 19 renal profile is normal. CPK is coming down to 302. Patient was seen today on 06/30/2024, remains in the ICU, remains intubated and mechanically ventilated, she is on assist-control rate of 16 tidal volume 400 FiO2 60% and PEEP up to 10. ABG showed a pO2 of 96 pCO2 34 pH of 7.40 her PEEP was at 5 prior to this blood gas, and I increased the PEEP up to 10. Patient remains on Versed at 15 mg/h patient is also on propofol at 75 mg/kg/min norepinephrine is presently on hold patient is receiving fluid at 75 cc/h she is also on vital 20/20 patient is now on Unasyn, and her vancomycin was discontinued because the sputum was positive for MSSA and not MRSA. Urine output is adequate about 50 to 60 cc/h patient received 1 dose of phenobarbital yesterday for extreme agitation, and questionable seizures, neurology has the patient now on Depakote. Overall the patient is not making much improvement, her chest x-ray continues to show worsening of her aspiration pneumonia. And her FiO2 requirement remains relatively high, PEEP was increased today up to 10. Labs today showed WBC count of 12.1 hemoglobin 9.9. Platelets are 191. Basic metabolic profile is normal bicarb is 21 BUN is 6 creatinine 0.45 CPK is down to 248. Patient is now on Unasyn, heparin subcu, Ativan as needed, propofol and Versed, pantoprazole, she received 1 dose of phenobarbital, patient is also receiving valproic acid and Tigan. She is also receiving thiamine Objective - Vital Signs Vital signs: Vital Signs Temp 98.1 F 06/30/24 12:00 Pulse 81 06/30/24 13:00 Resp 29 H 06/30/24 13:00 BP 95/48 06/30/24 13:00 Pulse Ox 93 L 06/30/24 13:00 FiO2 60 06/30/24 12:10 Intake & Output 06/29/24 06/30/24 06/30/24 18:59 06:59 18:59 Intake Total 2618.066 2416.109 1171.435 Output Total 465 1060 350 Balance 2153.066 1356.109 821.435 Weight 122.4 kg 124.1 kg 124.1 kg Intake: IV 1256 1094 660 0.9 @ KVO 220 130 70 Ampicillin-Sulbactam 3 gm 200 100 In Sodium Chloride 0.9% 100 ml @ 200 mls/hr IVPB Q6HR [facility] Rx#:[id number] PHENobarbitaL sodium 507 50 mg In Sodium Chloride 0.9 % 50 ml @ 161.7 mls/hr IV ONCE ONE Rx#:[id number] Potassium Chloride 10 meq 100 In Water For Injection 1 100ml.bag @ 100 mls/hr IVPB Q1H [facility] Rx#: [id number] Sodium Chloride 0.9% 1, 750 925 375 000 ml @ 75 mls/hr IV . [id number] [facility] Rx#:[id number] a-line 3ml 36 39 15 Intake, IV Titration 819.066 828.109 285.435 Amount Midazolam HCl 50 mg In 136.683 201.50 96.00 Sodium Chloride 0.9% 40 ml @ 1 MG/HR 1 mls/hr IV .Q24H [facility] Rx#:[id number] Norepinephrine 4 mg In 183.822 149.381 Sodium Chloride 0.9% 250 ml @ 0.03 MCG/KG/MIN 12. 996 mls/hr IV .[id number] [facility] Rx#:[id number] propofoL 1,000 mg In 498.561 477.228 189.435 Empty Bag 1 bag @ 15 MCG/ KG/MIN 9.846 mls/hr IV . [id number] [facility] Rx#:[id number] Tube Feeding 453 494 136 Other 90 90 Output: Urine 465 1060 350 Other: Voiding Method Indwelling Catheter Indwelling Catheter Indwelling Catheter ABP, PAP, CO, CI - Last Documented Arterial Blood Pressure 94/50 - Exam Gen: Revealed a 28-year-old female obese intubated mechanically ventilated, sedated Head: Atraumatic normocephalic HEENT: PERRLA, EOMI, nonicteric no neck masses no JVD CVS: Distant S1-S2, no S3 gallop, 2/6 systolic murmur throughout the precordium Respiratory: Clear bilaterally no crackles rhonchi or wheezes GI: Obese, soft nontender no rebound no guarding, positive bowel sounds. : no suprapubic tenderness, no CVA tenderness MSK/Derm: No rashes. Skin is dry. And warm Neuro: Could not assess patient is sedated, on multiple sedatives including propofol and Versed, Ativan, and she received 1 dose of propofol barbital yesterday Psych: Could not assess. - Labs CBC & Chem 7: 06/30/24 05:00 06/30/24 05:00 Labs: Abnormal Lab Results - Last 24 Hours (Table) 06/30/24 06/30/24 06/30/24 Range/Units 04:46 05:00 05:00 WBC 12.1 H (3.8-10.6) k/uL RBC 3.13 L (3.80-5.40) m/uL Hgb 9.9 L (11.4-16.0) gm/dL Hct 31.0 L (34.0-46.0) % Neutrophils # 10.6 H (1.3-7.7) k/uL ABG pCO2 34 L (35-45) mmHg ABG O2 Saturation 97.7 H (94-97) % Hemoglobin 9.8 L (11.4-16.0) gm/dL Chloride 112 H (98-107) mmol/L Carbon Dioxide 21 L (22-30) mmol/L BUN 6 L (7-17) mg/dL Creatinine 0.45 L (0.52-1.04) mg/dL Calcium 7.8 L (8.4-10.2) mg/dL Creatine Kinase 248 H (30-135) U/L Microbiology - Last 24 Hours (Table) 06/28/24 14:46 Blood Culture - Preliminary Blood 06/28/24 14:31 Blood Culture - Preliminary Blood 06/28/24 14:11 Nasal Screen MRSA/MSSA - Final Nasal Swab Staphylococcus aureus,Not MRSA 06/27/24 11:10 Gram Stain - Preliminary Sputum Sputum Culture - Preliminary Staphylococcus aureus Assessment and Plan Assessment: Impression: Acute respiratory failure, secondary to Wellbutrin overdose which required significant amount of sedation and patient developed respiratory failure requiring intubation and mechanical ventilation and needed to be intubated for protection of her airways as the patient received significant amount of sedation to control her agitation from Wellbutrin overdose. Again patient was intubated to protect her airways. Acute hypoxic respiratory failure secondary to pneumonia which has developed post intubation, on Unasyn Wellbutrin overdose Borderline personality disorder Suicidal attempt Aspiration pneumonia Sepsis secondary to aspiration pneumonia Electrolytes imbalance History of generalized anxiety disorder MRSA pneumonia Recommendation: Continue ventilatory support, no plans to have any weaning at this point and I am not able to cut down her sedation as she gets extremely agitated Continue antibiotics i/Unasyn Neurology consultation was noted and appreciated, valproic acid was added Continue GI and DVT prophylaxis Continue propofol and Versed, Continue seizure precautions Psychiatric consultation, once the patient is extubated and awake Prognosis is guarded. Patient is critically ill. Critical care time is 33 minutes Time with Patient: Greater than 30
[2024-06-30 17:46] LABS: Glucose,Whole Blood 72 mg/dL (70-110)
[2024-06-30 23:39] LABS: Glucose,Whole Blood 80 mg/dL (70-110)
[2024-07-01 04:19] LABS: ABG Base Excess -3.2 mmol/L; ABG HCO3 21 mmol/L (21-25); ABG Oxygen Saturation 94.1 % (94-97); ABG PCO2 34 mmHg (35-45); ABG PO2 72 mmHg (83-108); ABG TCO2 22 mmol/L (19-24)
[2024-07-01 04:20] LABS: Allen Test Performed? no
[2024-07-01 04:43] LABS: Basophils % (A) 0 %; Eosinophils % (A) 0 %; HGB 9.9 gm/dL (11.4-16.0); Hypochromasia Slight; Lymphocytes # (A) 0.6 k/uL (1.0-4.8); Lymphocytes % (A) 6 %; MCH 30.7 pg (25.0-35.0); MCV 98.9 fL (80.0-100.0); Monocytes # (A) 0.4 k/uL (0-1.0); Monocytes % (A) 4 %; Neutrophils # (A) 8.7 k/uL (1.3-7.7); Neutrophils % (A) 89 %; Platelet Count 207 k/uL (150-450); RBC 3.24 m/uL (3.80-5.40); RDW 14.2 % (11.5-15.5); WBC 9.8 k/uL (3.8-10.6)
[2024-07-01 04:54] LABS: African American GFR (CKD) >90 (>60 ml/min/1.73 sqM); Anion Gap 8 mmol/L; Blood Urea Nitrogen 5 mg/dL (7-17); Calcium 8.1 mg/dL (8.4-10.2); Carbon Dioxide 19 mmol/L (22-30); Chloride 114 mmol/L (98-107); Glucose 84 mg/dL (74-99); Non-African American GFR(CKD) >90 (>60 ml/min/1.73 sqM); Potassium 3.3 mmol/L (3.5-5.1); Sodium 141 mmol/L (137-145)
[2024-07-01] MEDS: POTASSIUM BICARBONATE/CIT AC 20 MEQ TABLET.EFF NG-TUBE SCH (05:07)
[2024-07-01 05:16] LABS: Glucose,Whole Blood 76 mg/dL (70-110)
[2024-07-01] MEDS: MAGNESIUM SULFATE-D5W PMX 1 GM in DEXTROSE/WATER 1 100ML.BAG IVPB SCH (06:20)
--- NOTE | 2024-07-01 07:24 | XR ---
EXAMINATION TYPE: XR chest 1V portable DATE OF EXAM: 07/01/2024 5:27 AM COMPARISON: Multiple radiographs, with the most recent on 06/30/2024. TECHNIQUE: XR chest 1V portable Portable AP radiograph of the chest. CLINICAL INDICATION:Female, 28 years old with history of vent; FINDINGS: Patient is rotated which limits evaluation. Lungs/Pleura: Similar right basilar airspace opacities with slightly improved left basilar airspace o pacities. Heart/mediastinum: Cardiomediastinal silhouette is unremarkable. Musculoskeletal: No acute osseous pathology. Other findings: None Lines/Tubes: Endotracheal tube with distal tip 4.5 cm above the donnie Nasogastric tube with its distal tip and side-port projecting under the diaphragm and projecting over the gastric lumen. IMPRESSION: 1. Similar right basilar airspace opacities with slightly improved left basilar airspace opacities. 2. Stable support tubes. [facility], , 07/01/2024 7:22 AM
[2024-07-01 11:04] LABS: % Iron Saturation 5.56 (12.00-45.00); Iron 9 UG/DL (50-170); Total Iron Binding Capacity 162 UG/DL (228-460)
[2024-07-01 11:26] LABS: Glucose,Whole Blood 79 mg/dL (70-110)
--- NOTE | 2024-07-01 11:56 | P.PN ---
Subjective Progress Note Date: 07/01/24 Hospital Course: 28-year-old woman with medical history of anxiety and borderline personality d isorder on Wellbutrin presented after intentional ingestion of Wellbutrin. Upon arrival patient was afebrile, 148/96, heart rate 83. Patient subsequently received activated charcoal, was started on IV fluids, and given a total of 7 mg of Ativan while on continuous telemetry, with heart rates increasing to the 130s to 140s. The ER provider did contact poison control control who recommended medical monitoring until patient is stable for transfer to the mental health unit. Review of lab work shows normal CBC, CO2 of 20, ALT of 91, negative troponin, normal lactic acid, negative salicylate level, alcohol level, Tylenol level. Initial EKG shows normal sinus rhythm with a short TN interval and right axis deviation. Patient was admitted to the cardiac selective floor with telemetry, with low threshold for ICU escalation. RR called on 06/27, patient was extremely agitated hypertensive and tachycardic despite receiving 21 mg of Ativan as well as standing Librium overnight. During the rapid response, patient received an additional 8 mg of Ativan, 50 mg of Benadryl, 5 mg of Haldol. Despite these measures, patient was still extremely agitated requiring 4 point restraints. At this point, decision was made to intubate and sedate the patient at bedside and start the patient on an IV be nzodiazepine drip, propofol drip. Patient was intubated using 200 of propofol, 2 of Nimbex. Initial intubation resulted in right mainstem intubation but resolved after pulling back ET tube. Patient was started on midazolam drip in the ICU, propofol drip. She was saturating well on vent settings. 06/28: patient had sedation holidays , had decreased emesis, was suctioned, sedation holiday stopped. Patient was started on low-dose Levophed overnight. Patient was restarted on propofol, continued on Versed. Started spiking fever 06/28 around 8 in the morning ,she was also started on Zosyn, sputum cultures growing presumptive Staph aureus, added vancomycin. 06/29, yesterday neurology was consulted for concern for possible seizure, patient was started on Depakote, tremoring was reported. CT head showed no acute hemorrhage, areas of low-attenuation in the bilateral cerebellar hemisphere slightly more prominent on the right, per neurology, could be artifact. EEG done in was abnormal, showed background slowing suggestive of mild encephalopathy likely due to toxic metabolic derangement as well as medication use, no epileptiform discharges, seizures. Poison control recommended phenobarbital, and also 570 mg IV once 06/2724 ID consulted. Started on Unasyn on 06/29 06/30: Norepinephrine on hold, patient is afebrile since 06/29 8 AM; spoke with poison control who recommended considering GI consult for possible EGD. Patient continued to have seizure activity due to concern for Wellbutrin capsule being extended release and still remaining in the stomach with systemic release. Disc ussed with neurology, no concern for seizure, will hold IR consult for now. 07/01: Afebrile, Levophed is on standby. Leukocytosis resolved. And came back low at 9, will defer IV iron during active infection treatment. Blood glucose is borderline, will switch to D5 normal saline Pertinent Imaging: Bibasilar acute infiltrates central vascular congestion, small bilateral effusion, slightly improved left basilar airspace opacity Subjective: Intubated and sedated Vitals Signs Reviewed. General: [, Sedated, morbidly obese Derm: Hypokalemia Hypomagnesemia, [dry] Head: [atraumatic], [normocephalic], [symmetric] Eyes: [EOMI], [no lid lag], [anicteric sclera] Mouth: [no lip lesion], [mucus membranes moist] Cardiovascular: [S1S2 reg], [no murmur] Lungs: [CTA bilateral], [no rhonchi, no rales] , [no accessory muscle use] Abdominal: [soft], [ nontender to palpation], [no guarding], [no appreciable organomegaly] Ext: [no gross muscle atrophy], [no edema], [no contractures] Neuro: [ CN II-XI grossly intact], [no focal neuro deficits] Psych: [Alert], [oriented], [appropriate affect] Data Reviewed Today: Pertinent Labs WBC 9.8, hemoglobin stable 9.9, platelet count normal, sodium 141, potassium 3.3, magnesium 1.5, bicarb 19, creatinine 0.88 blood glucose in 70s, iron 9, TIBC 162 Assessment and Plan: Acute respiratory failure s/p intubation for airway protection 06/27 Sputum cx growing Staph aureus Sepsis likely secondary to aspiration pneumonia Intentional overdose with Wellbutrin Metabolic acidosis Hypokalemia Hypomagnesemia Anxiety Borderline personality disorder -Patient remains in ICU on IV benzodiazepine and propofol drip -Seizure precautions, neurology consulted, EEG: Background slowing, no epileptiform discharge or seizure, continue valproic acid 500 twice daily -1 dose of phenobarbital 06/29 -Continue midazolam drip, uptitrate as warranted -Continue propofol drip -ID consulted, patient started on Unasyn 06/29 -Psychiatry consulted -Pulmonology/ICU care and recommendations appreciated -Electrolytes replaced, follow-up levels ordered -daily CXR -Discussed with RN, patient will likely need legal guardian, her mother reportedly have mental illness and not present in her daughter's life Acute anemia Iron deficiency -No signs of bleeding -Likely related to critical illness -Iron low 9, will defer IV iron while treating active infection -No periods reported by nursing staff DVT ppx: Heparin Code status: Full code Anticipated discharge place: Pending clinical course Anticipated discharge time: Pending clinical course Objective - Vital Signs Vital signs: Vital Signs Temp 99.5 F 07/01/24 08:30 Pulse 82 07/01/24 11:00 Resp 28 H 07/01/24 11:00 BP 114/60 07/01/24 10:45 Pulse Ox 92 L 07/01/24 11:00 FiO2 60 07/01/24 11:34 Intake & Output 06/30/24 07/01/24 07/01/24 18:59 06:59 18:59 Intake Total 2304.485 2000.095 569.740 Output Total 770 1010 305 Balance 1534.485 990.095 264.740 Weight 124.1 kg 128.8 kg Intake: IV 1348 1056 140 0.9 @ KVO 190 120 50 Ampicillin-Sulbactam 3 gm 200 In Sodium Chloride 0.9% 100 ml @ 200 mls/hr IVPB Q6HR [facility] Rx#:[id number] Potassium Chloride 10 meq 100 In Water For Injection 1 100ml.bag @ 100 mls/hr IVPB Q1H [facility] Rx#: [id number] Sodium Chloride 0.9% 1, 825 900 75 000 ml @ 75 mls/hr IV . [id number] [facility] Rx#:[id number] a-line 3ml 33 36 15 Intake, IV Titration 670.485 614.095 299.740 Amount Midazolam HCl 50 mg In 193.75 179.50 63.316 Sodium Chloride 0.9% 40 ml @ 1 MG/HR 1 mls/hr IV .Q24H [facility] Rx#:[id number] Norepinephrine 4 mg In 21.66 42.598 42.887 Sodium Chloride 0.9% 250 ml @ 0.03 MCG/KG/MIN 12. 996 mls/hr IV .[id number] [facility] Rx#:[id number] propofoL 1,000 mg In 455.075 391.997 193.537 Empty Bag 1 bag @ 15 MCG/ KG/MIN 9.846 mls/hr IV . [id number] [facility] Rx#:[id number] Tube Feeding 196 240 100 Other 90 90 30 Output: Urine 770 1010 305 Other: Voiding Method Indwelling Catheter Indwelling Catheter Indwelling Catheter ABP, PAP, CO, CI - Last Documented Arterial Blood Pressure 95/55 - Labs CBC & Chem 7: 07/01/24 04:21 07/01/24 04:21 Labs: Abnormal Lab Results - Last 24 Hours (Table) 07/01/24 07/01/24 07/01/24 Range/Units 04:04 04:21 04:21 RBC 3.24 L (3.80-5.40) m/uL Hgb 9.9 L (11.4-16.0) gm/dL Hct 32.0 L (34.0-46.0) % Neutrophils # 8.7 H (1.3-7.7) k/uL Lymphocytes # 0.6 L (1.0-4.8) k/uL ABG pCO2 34 L (35-45) mmHg ABG pO2 72 L (83-108) mmHg Hemoglobin 9.8 L (11.4-16.0) gm/dL Potassium 3.3 L (3.5-5.1) mmol/L Chloride 114 H (98-107) mmol/L Carbon Dioxide 19 L (22-30) mmol/L BUN 5 L (7-17) mg/dL Creatinine 0.38 L (0.52-1.04) mg/dL Calcium 8.1 L (8.4-10.2) mg/dL Magnesium (1.6-2.3) mg/dL Iron 9 L (50-170) UG/DL TIBC 162 L (228-460) UG/DL % Saturation 5.56 L (12.00-45.00) Transferrin 116.0 L (204.0-354.0) mg/dL Vitamin B12 1207.0 H (200.0-944.0) pg/mL 07/01/24 Range/Units 04:21 RBC (3.80-5.40) m/uL Hgb (11.4-16.0) gm/dL Hct (34.0-46.0) % Neutrophils # (1.3-7.7) k/uL Lymphocytes # (1.0-4.8) k/uL ABG pCO2 (35-45) mmHg ABG pO2 (83-108) mmHg Hemoglobin (11.4-16.0) gm/dL Potassium (3.5-5.1) mmol/L Chloride (98-107) mmol/L Carbon Dioxide (22-30) mmol/L BUN (7-17) mg/dL Creatinine (0.52-1.04) mg/dL Calcium (8.4-10.2) mg/dL Magnesium 1.5 L (1.6-2.3) mg/dL Iron (50-170) UG/DL TIBC (228-460) UG/DL % Saturation (12.00-45.00) Transferrin (204.0-354.0) mg/dL Vitamin B12 (200.0-944.0) pg/mL Microbiology - Last 24 Hours (Table) 06/28/24 08:50 Gram Stain - Final Sputum Sputum Culture - Final Staphylococcus aureus 06/28/24 14:46 Blood Culture - Preliminary Blood 06/28/24 14:31 Blood Culture - Preliminary Blood 06/27/24 11:10 Gram Stain - Final Sputum Sputum Culture - Final Staphylococcus aureus
[2024-07-01] MEDS: DEXAMETHASONE SOD PHOSPHATE 10 MG/ML 1 ML VIAL IVP SCH (11:57)
[2024-07-01] MEDS: POTASSIUM CHLORIDE 20 MEQ in WATER FOR INJECTION 1 100ML.BAG IVPB SCH (12:40)
[2024-07-01] MEDS: DEXTROSE 5%-0.9% NACL 1,000 ML IV SCH (12:41)
--- NOTE | 2024-07-01 13:23 | P.PN ---
Subjective Progress Note Date: 07/01/24 Principal diagnosis: Acute respiratory failure secondary to Wellbutrin overdose This is a 28-year-old female with history of borderline personality disorder, presented yesterday to the ER with intentional suicidal attempt by taking multiple Wellbutrin tablets. According to the chart patient may have taken about 30 tablets. Patient stated to the ER physician that she does not want to live like this anymore, and she took many tablets of Wellbutrin. This was obviously a suicidal attempt. Patient received activated charcoal, patient was admitted to the medical floor, however this morning patient was becoming more and more agitated and restless, becoming more lightheaded, patient was getting quite tachycardic, and hypertensive. Has been receiving Ativan and Librium ov ernight, rapid response team responded to the patient this morning and she received additional 8 mg of Ativan, 50 mg of Benadryl and 5 mg of Haldol. Continued to be agitated and requiring 4 point restraints. At this point patient was intubated, placed on propofol drip and Versed drip, transferred to the ICU, and I saw her on consultation upon arrival. Patient required lines placement including a right femoral triple-lumen catheter and right radial arterial line which was done on emergency basis as the patient had very poor peripheral IV access. Patient was intubated and mechanically ventilated, she is on assist-control rate of 16 tidal volume 450 FiO2 50% and PEEP of 5 ABG showed a pO2 of 364 pCO2 of 39 pH of 7.29 she received 1 amp of bicarb. Patient was on propofol at 50 mcg/kg/min Versed at 3 mg/h IV fluid 0.9 at 75 cc/h and she is on the usual ICU protocol for GI and DVT prophylaxis she is also on ventilatory support, and will address nutritional support later today or tomorrow. CBC showed WBC of 6.3 hemoglobin 12.4 electrolytes showed low potassium of 3.0 being addressed accordingly, labs were all reviewed, test was negative. Drug screen showed positive for benzodiazepines and positive for marijuana. Otherwise was negative. Patient was evaluated today on 06/27/2024, remains in the ICU, intubated and mechanically ventilated. Patient is on assist-control rate of 16 tidal volume 450 FiO2 40% PEEP of 5 ABG showed a pO2 of 114 pCO2 38 pH of 7.43. Patient r emains on propofol at 50 mcg/kg/min she is also on Versed at 5 mg/h and earlier this morning the patient developed low urine output, and low blood pressure, she received multiple fluid boluses about 3 L, and she had to be placed on norepinephrine at 0.01 mcg/kg/min, I feel the hypotension is most likely related to excessive sedation, and her poor urine output is secondary to low blood pressure. Today I recommended that we cut down on her sedation and hopefully try to transition the patient to Precedex if possible. Apparently this was attempted but the patient woke up suddenly and vomited, and was noted to be restless and agitated has recommended that she goes back on Versed and propofol and the dose to be titrated. Patient has not had any seizure activity, she remains on GI and DVT prophylaxis, heparin subcu, remains on seizure precautions, labs today show WBC count of 4.9 hemoglobin 10.8, electrolytes were noted to be normal renal profile is normal creatinine 0.68 CPK elevated at 508 and this is very related to her recent seizure. Chest x-ray continues to show bibasilar atelectasis, doubt infiltrate. Although patient is set up for aspiration. The chest x-ray is not quite impressive to consider starting empiric antibiotics. Patient was seen today on 06/28/2024, patient remains in the ICU, intubated and mechanically ventilated, she is on assist-control rate of 16 tidal volume 400 FiO2 50% and PEEP of 5. Patient had an earlier blood gas on 40% FiO2 which showed a pO2 of 54 pCO2 29 pH of 7.50 and apparently the gas was done earlier shortly after she was witnessed to have an aspiration episode as she woke up and became agitated, she aspirated and developed right lower lobe atelectasis/infiltrate and possibly a small right-sided pleural effusion hence her FiO2 was increased to 50%. Patient is on propofol at 50 mcg/kg/min, Versed and 13 mg/h norepinephrine at 0.02 mcg/kg/min vital HP at 40/45 and IV fluid 0.9 normal saline at 75 cc/h. WBC count is 7.6 hemoglobin is 11.2, basic metabolic profile is relatively normal however her bicarb is 15 potassium is 2.8, anion gap is 6, and her creatinine kinase is 496. Sputum cultures today are showing presumptive Staph aureus, patient was placed earlier today on Zosyn and now I will go ahead and add vancomycin. Patient was seen today on 06/29/2024, patient remains in the ICU, intubated and mechanically ventilated, continues to have intermittent episodes of seizure-like activities although the patient is maximized on propofol at 50 mcg/kg/min on Versed at 15 mg/h patient is requiring norepinephrine at 0.04 mcg/kg/min she is on 0.9 normal saline at 75 cc/h and vital HP at 45 cc/h. CT of the head showed some questionable ischemic injury being addressed by neurology, and recommending eventually MRI. Patient remains on Zosyn and vancomycin for aspiration pneumonia and positive sputum for MRSA. Remains on assist-control rate of 16 tidal volume 400 FiO2 50% and PEEP of 5 ABG showed a pO2 of 70 pCO2 30 pH of 7.42. Hence no changes were made in vent settings. Infectious disease was consulted for her positive Staph aureus in the sputum in the meantime we will continue with vancomycin and Zosyn. Patient clearly had aspiration pneumonia chest x-ray is consistent with aspiration pneumonia. At this point in time the patient is not ready for any weaning as she gets extremely restless and agitated and again she has these episodes of seizure-like activities, Poison control recommended phenobarbital. Patient will be given a dose of phenobarbital x 1. Labs today show WBC is 14.3 hemoglobin 11.2, basic metabolic profile is normal electrolytes are normal bicarb is a bit low at 19 renal profile is normal. CPK is coming down to 302. Patient was seen today on 06/30/2024, remains in the ICU, remains intubated and mechanically ventilated, she is on assist-control rate of 16 tidal volume 400 FiO2 60% and PEEP up to 10. ABG showed a pO2 of 96 pCO2 34 pH of 7.40 her PEEP was at 5 prior to this blood gas, and I increased the PEEP up to 10. Patient remains on Versed at 15 mg/h patient is also on propofol at 75 mg/kg/min norepinephrine is presently on hold patient is receiving fluid at 75 cc/h she is also on vital 20/20 patient is now on Unasyn, and her vancomycin was discontinued because the sputum was positive for MSSA and not MRSA. Urine output is adequate about 50 to 60 cc/h patient received 1 dose of phenobarbital yesterday for extreme agitation, and questionable seizures, neurology has the patient now on Depakote. Overall the patient is not making much improvement, her chest x-ray continues to show worsening of her aspiration pneumonia. And her FiO2 requirement remains relatively high, PEEP was increased today up to 10. Labs today showed WBC count of 12.1 hemoglobin 9.9. Platelets are 191. Basic metabolic profile is normal bicarb is 21 BUN is 6 creatinine 0.45 CPK is down to 248. Patient is now on Unasyn, heparin subcu, Ativan as needed, propofol and Versed, pantoprazole, she received 1 dose of phenobarbital, patient is also receiving valproic acid and Tigan. She is also receiving thiamine Seen today on 07/01/2024, patient remains about the same, remains critically ill, remains intubated mechanically ventilated, on assist-control rate of 16 tidal volume 400 FiO2 60% PEEP of 10 ABG remains marginal with a pO2 of 72 pCO2 34 pH of 7.40. Still requiring significant amount of sedation including Versed at 14 mg/h, norepinephrine at 0.02 presently on hold, she is on propofol at 75 mcg/kg/min. , IV fluids 0.9 normal saline at 75 cc/h. Chest x-ray continues to show significant bilateral airspace disease specially right lower lobe and left lower lobe consistent with aspiration pneumonia. Patient remains on antibiotics. WBC count today is 9.8 hemoglobin 9.9. Electrolytes showed low potassium of 3.3 being addressed accordingly, otherwise the patient has normal renal functioning. Remains on nutritional support/enteral feeding. Objective - Vital Signs Vital signs: Vital Signs Temp 99.7 F H 07/01/24 12:00 Pulse 80 07/01/24 12:00 Resp 26 H 07/01/24 12:00 BP 111/60 07/01/24 11:45 Pulse Ox 92 L 07/01/24 12:00 FiO2 60 07/01/24 11:34 Intake & Output 06/30/24 07/01/24 07/01/24 18:59 06:59 18:59 Intake Total 2304.485 2000.095 819.713 Output Total 770 1010 405 Balance 1534.485 990.095 414.713 Weight 124.1 kg 128.8 kg Intake: IV 1348 1056 253 0.9 @ KVO 190 120 60 Ampicillin-Sulbactam 3 gm 200 100 In Sodium Chloride 0.9% 100 ml @ 200 mls/hr IVPB Q6HR [facility] Rx#:[id number] Potassium Chloride 10 meq 100 In Water For Injection 1 100ml.bag @ 100 mls/hr IVPB Q1H [facility] Rx#: [id number] Sodium Chloride 0.9% 1, 825 900 75 000 ml @ 75 mls/hr IV . [id number] [facility] Rx#:[id number] a-line 3ml 33 36 18 Intake, IV Titration 670.485 614.095 386.713 Amount Midazolam HCl 50 mg In 193.75 179.50 63.316 Sodium Chloride 0.9% 40 ml @ 1 MG/HR 1 mls/hr IV .Q24H [facility] Rx#:[id number] Norepinephrine 4 mg In 21.66 42.598 42.887 Sodium Chloride 0.9% 250 ml @ 0.03 MCG/KG/MIN 12. 996 mls/hr IV .[id number] [facility] Rx#:[id number] propofoL 1,000 mg In 455.075 391.997 280.510 Empty Bag 1 bag @ 15 MCG/ KG/MIN 9.846 mls/hr IV . [id number] [facility] Rx#:[id number] Tube Feeding 196 240 120 Other 90 90 60 Output: Urine 770 1010 405 Other: Voiding Method Indwelling Catheter Indwelling Catheter Indwelling Catheter ABP, PAP, CO, CI - Last Documented Arterial Blood Pressure 87/56 - Exam Gen: Revealed a 28-year-old female obese intubated mechanically ventilated, sedated Head: Atraumatic normocephalic HEENT: PERRLA, EOMI, nonicteric no neck masses no JVD CVS: Distant S1-S2, no S3 gallop, 2/6 systolic murmur throughout the precordium Respiratory: Crackles at the bases, no rhonchi no wheezes GI: Obese, soft nontender no rebound no guarding, positive bowel sounds. : no suprapubic tenderness, no CVA tenderness MSK/Derm: No rashes. Skin is dry. And warm Neuro: Could not assess patient is sedated, on multiple sedatives including propofol and Versed, Psych: Could not assess. - Labs CBC & Chem 7: 07/01/24 04:21 07/01/24 12:05 Labs: Abnormal Lab Results - Last 24 Hours (Table) 07/01/24 07/01/24 07/01/24 Range/Units 04:04 04:21 04:21 RBC 3.24 L (3.80-5.40) m/uL Hgb 9.9 L (11.4-16.0) gm/dL Hct 32.0 L (34.0-46.0) % Neutrophils # 8.7 H (1.3-7.7) k/uL Lymphocytes # 0.6 L (1.0-4.8) k/uL ABG pCO2 34 L (35-45) mmHg ABG pO2 72 L (83-108) mmHg Hemoglobin 9.8 L (11.4-16.0) gm/dL Potassium 3.3 L (3.5-5.1) mmol/L Chloride 114 H (98-107) mmol/L Carbon Dioxide 19 L (22-30) mmol/L BUN 5 L (7-17) mg/dL Creatinine 0.38 L (0.52-1.04) mg/dL Calcium 8.1 L (8.4-10.2) mg/dL Magnesium (1.6-2.3) mg/dL Iron 9 L (50-170) UG/DL TIBC 162 L (228-460) UG/DL % Saturation 5.56 L (12.00-45.00) Transferrin 116.0 L (204.0-354.0) mg/dL Vitamin B12 1207.0 H (200.0-944.0) pg/mL 07/01/24 07/01/24 Range/Units 04:21 12:05 RBC (3.80-5.40) m/uL Hgb (11.4-16.0) gm/dL Hct (34.0-46.0) % Neutrophils # (1.3-7.7) k/uL Lymphocytes # (1.0-4.8) k/uL ABG pCO2 (35-45) mmHg ABG pO2 (83-108) mmHg Hemoglobin (11.4-16.0) gm/dL Potassium 3.3 L (3.5-5.1) mmol/L Chloride (98-107) mmol/L Carbon Dioxide (22-30) mmol/L BUN (7-17) mg/dL Creatinine (0.52-1.04) mg/dL Calcium (8.4-10.2) mg/dL Magnesium 1.5 L (1.6-2.3) mg/dL Iron (50-170) UG/DL TIBC (228-460) UG/DL % Saturation (12.00-45.00) Transferrin (204.0-354.0) mg/dL Vitamin B12 (200.0-944.0) pg/mL Microbiology - Last 24 Hours (Table) 06/28/24 08:50 Gram Stain - Final Sputum Sputum Culture - Final Staphylococcus aureus 06/28/24 14:46 Blood Culture - Preliminary Blood 06/28/24 14:31 Blood Culture - Preliminary Blood 06/27/24 11:10 Gram Stain - Final Sputum Sputum Culture - Final Staphylococcus aureus Assessment and Plan Assessment: Impression: Acute respiratory failure, secondary to Wellbutrin overdose which required significant amount of sedation and patient developed respiratory failure requiring intubation and mechanical ventilation and needed to be intubated for protection of her airways as the patient received significant amount of sedation to control her agitation from Wellbutrin overdose. Again patient was intubated to protect her airways. Acute hypoxic respiratory failure secondary to pneumonia which has developed post intubation, on Unasyn Wellbutrin overdose Borderline personality disorder Suicidal attempt Aspiration pneumonia Sepsis secondary to aspiration pneumonia Electrolytes imbalance History of generalized anxiety disorder MRSA pneumonia Recommendation: Continue ventilatory support, not ready for weaning Continue antibiotics /Unasyn mostly for aspiration pneumonia Continue Depakote Continue GI and DVT prophylaxis Continue propofol and Versed, Continue seizure precautions Prognosis is guarded. Patient is critically ill. Critical care time is 32 minutes Time with Patient: Greater than 30
--- NOTE | 2024-07-01 14:30 | P.PN ---
Subjective Progress Note Date: 06/30/24 Principal diagnosis: Reason for follow-up is MSSA/aspiration pneumonia Patient is a 28-year-old female with a past medical history of dependent for reflux, anxiety and depression presenting to the hospital after the patient overdosed on 50-90 Wellbutrin tablets subsequent did have a agitation respiratory distress requiring revision admission to the ICU ID consulted because of concern for aspiration pneumonia. On today's evaluation that is 06/30/2024,the patient is afebrile today patient remains to be intubated on the vent FiO2 is currently stable at 60% no signi ficant purulent secretions of the ET patient is requiring low-dose pressor support no diarrhea has been reported. Patient white count is down to 12.1, creatinine is 0.45 blood cultures are pending sputum is growing MSSA Objective - Vital Signs Vital signs: Vital Signs Temp 99 F H 06/30/24 16:00 Pulse 80 06/30/24 16:00 Resp 29 H 06/30/24 16:00 BP 98/57 06/30/24 16:00 Pulse Ox 96 06/30/24 16:00 FiO2 60 06/30/24 16:00 - Exam GENERAL DESCRIPTION: Middle-age female intubated on the vent RESPIRATORY SYSTEM: Unlabored breathing , decreased breath sounds at bases HEART: S1 S2 regular rate and rhythm , ABDOMEN: Soft , no tenderness EXTREMITIES: No edema feet - Labs CBC & Chem 7: 07/01/24 04:21 07/01/24 12:05 Labs: Abnormal Lab Results - Last 24 Hours (Table) 07/01/24 07/01/24 07/01/24 Range/Units 04:04 04:21 04:21 RBC 3.24 L (3.80-5.40) m/uL Hgb 9.9 L (11.4-16.0) gm/dL Hct 32.0 L (34.0-46.0) % Neutrophils # 8.7 H (1.3-7.7) k/uL Lymphocytes # 0.6 L (1.0-4.8) k/uL ABG pCO2 34 L (35-45) mmHg ABG pO2 72 L (83-108) mmHg Hemoglobin 9.8 L (11.4-16.0) gm/dL Potassium 3.3 L (3.5-5.1) mmol/L Chloride 114 H (98-107) mmol/L Carbon Dioxide 19 L (22-30) mmol/L BUN 5 L (7-17) mg/dL Creatinine 0.38 L (0.52-1.04) mg/dL Calcium 8.1 L (8.4-10.2) mg/dL Magnesium (1.6-2.3) mg/dL Iron 9 L (50-170) UG/DL TIBC 162 L (228-460) UG/DL % Saturation 5.56 L (12.00-45.00) Transferrin 116.0 L (204.0-354.0) mg/dL Vitamin B12 1207.0 H (200.0-944.0) pg/mL 07/01/24 Range/Units 04:21 RBC (3.80-5.40) m/uL Hgb (11.4-16.0) gm/dL Hct (34.0-46.0) % Neutrophils # (1.3-7.7) k/uL Lymphocytes # (1.0-4.8) k/uL ABG pCO2 (35-45) mmHg ABG pO2 (83-108) mmHg Hemoglobin (11.4-16.0) gm/dL Potassium (3.5-5.1) mmol/L Chloride (98-107) mmol/L Carbon Dioxide (22-30) mmol/L BUN (7-17) mg/dL Creatinine (0.52-1.04) mg/dL Calcium (8.4-10.2) mg/dL Magnesium 1.5 L (1.6-2.3) mg/dL Iron (50-170) UG/DL TIBC (228-460) UG/DL % Saturation (12.00-45.00) Transferrin (204.0-354.0) mg/dL Vitamin B12 (200.0-944.0) pg/mL Microbiology - Last 24 Hours (Table) 06/28/24 08:50 Gram Stain - Final Sputum Sputum Culture - Final Staphylococcus aureus 06/28/24 14:46 Blood Culture - Preliminary Blood 06/28/24 14:31 Blood Culture - Preliminary Blood 06/27/24 11:10 Gram Stain - Final Sputum Sputum Culture - Final Staphylococcus aureus Assessment and Plan (1) Sepsis Current Visit: Yes Status: Acute Code(s): A41.9 - SEPSIS, UNSPECIFIED ORGANISM SNOMED Code(s): 98411621 (2) Pneumonia Current Visit: Yes Status: Acute Code(s): J18.9 - PNEUMONIA, UNSPECIFIED ORGANISM SNOMED Code(s): 949014031 (3) MSSA (methicillin susceptible Staphylococcus aureus) infection Current Visit: Yes Status: Acute Code(s): A49.01 - METHICILLIN SUSCEP STAPH INFECTION, UNSP SITE SNOMED Code(s): 541539806 Plan: 1patient presenting the hospital with drug overdose with subsequent agitation respiratory distress requiring intubation concerning for possible aspiration pneumonia sputum is now growing MSSA in this patient who did have features of sepsis with fever elevated white count and hypotension requiring low-dose pressor support 2-patient is currently being treated with Unasyn patient white count is trending down blood cultures are pending Dictation was produced using [employer] software. please excuse any grammatical, word or spelling errors.
--- NOTE | 2024-07-01 14:31 | P.PN ---
Subjective Progress Note Date: 07/01/24 Principal diagnosis: Reason for follow-up is MSSA/aspiration pneumonia Patient is a 28-year-old female with a past medical history of dependent for reflux, anxiety and depression presenting to the hospital after the patient overdosed on 50-90 Wellbutrin tablets subsequent did have a agitation respiratory distress requiring revision admission to the ICU ID consulted because of concern for aspiration pneumonia. On today's evaluation that is 07/01/2024, the patient did have a low-grade fever of 99.7 at noon the patient remains to be debated on the vent FiO2 is currently stable at 60% no significant purulent secretion through the ET diarrhea and the change reported by the nursing staff the patient is currently off the pressor support. Patient white count normalized to 9.8, creatinine is 0.3 blood culture has been negative Objective - Vital Signs Vital signs: Vital Signs Temp 99.7 F H 07/01/24 12:00 Pulse 80 07/01/24 12:00 Resp 26 H 07/01/24 12:00 BP 111/60 07/01/24 11:45 Pulse Ox 92 L 07/01/24 12:00 FiO2 60 07/01/24 11:34 Intake & Output 06/30/24 07/01/24 07/01/24 18:59 06:59 18:59 Intake Total 2304.485 2000.095 819.713 Output Total 770 1010 405 Balance 1534.485 990.095 414.713 Weight 124.1 kg 128.8 kg Intake: IV 1348 1056 253 0.9 @ KVO 190 120 60 Ampicillin-Sulbactam 3 gm 200 100 In Sodium Chloride 0.9% 100 ml @ 200 mls/hr IVPB Q6HR [facility] Rx#:[id number] Potassium Chloride 10 meq 100 In Water For Injection 1 100ml.bag @ 100 mls/hr IVPB Q1H [facility] Rx#: [id number] Sodium Chloride 0.9% 1, 825 900 75 000 ml @ 75 mls/hr IV . [id number] [facility] Rx#:[id number] a-line 3ml 33 36 18 Intake, IV Titration 670.485 614.095 386.713 Amount Midazolam HCl 50 mg In 193.75 179.50 63.316 Sodium Chloride 0.9% 40 ml @ 1 MG/HR 1 mls/hr IV .Q24H [facility] Rx#:[id number] Norepinephrine 4 mg In 21.66 42.598 42.887 Sodium Chloride 0.9% 250 ml @ 0.03 MCG/KG/MIN 12. 996 mls/hr IV .[id number] [facility]ABS Rx#:[id number] propofoL 1,000 mg In 455.075 391.997 280.510 Empty Bag 1 bag @ 15 MCG/ KG/MIN 9.846 mls/hr IV . [id number] [facility] Rx#:[id number] Tube Feeding 196 240 120 Other 90 90 60 Output: Urine 770 1010 405 Other: Voiding Method Indwelling Catheter Indwelling Catheter Indwelling Catheter ABP, PAP, CO, CI - Last Documented Arterial Blood Pressure 87/56 - Exam GENERAL DESCRIPTION: Middle-age female intubated on the vent RESPIRATORY SYSTEM: Unlabored breathing , decreased breath sounds at bases HEART: S1 S2 regular rate and rhythm , ABDOMEN: Soft , no tenderness EXTREMITIES: No edema feet - Labs CBC & Chem 7: 07/01/24 04:21 07/01/24 12:05 Labs: Abnormal Lab Results - Last 24 Hours (Table) 07/01/24 07/01/24 07/01/24 Range/Units 04:04 04:21 04:21 RBC 3.24 L (3.80-5.40) m/uL Hgb 9.9 L (11.4-16.0) gm/dL Hct 32.0 L (34.0-46.0) % Neutrophils # 8.7 H (1.3-7.7) k/uL Lymphocytes # 0.6 L (1.0-4.8) k/uL ABG pCO2 34 L (35-45) mmHg ABG pO2 72 L (83-108) mmHg Hemoglobin 9.8 L (11.4-16.0) gm/dL Potassium 3.3 L (3.5-5.1) mmol/L Chloride 114 H (98-107) mmol/L Carbon Dioxide 19 L (22-30) mmol/L BUN 5 L (7-17) mg/dL Creatinine 0.38 L (0.52-1.04) mg/dL Calcium 8.1 L (8.4-10.2) mg/dL Magnesium (1.6-2.3) mg/dL Iron 9 L (50-170) UG/DL TIBC 162 L (228-460) UG/DL % Saturation 5.56 L (12.00-45.00) Transferrin 116.0 L (204.0-354.0) mg/dL Vitamin B12 1207.0 H (200.0-944.0) pg/mL 07/01/24 Range/Units 04:21 RBC (3.80-5.40) m/uL Hgb (11.4-16.0) gm/dL Hct (34.0-46.0) % Neutrophils # (1.3-7.7) k/uL Lymphocytes # (1.0-4.8) k/uL ABG pCO2 (35-45) mmHg ABG pO2 (83-108) mmHg Hemoglobin (11.4-16.0) gm/dL Potassium (3.5-5.1) mmol/L Chloride (98-107) mmol/L Carbon Dioxide (22-30) mmol/L BUN (7-17) mg/dL Creatinine (0.52-1.04) mg/dL Calcium (8.4-10.2) mg/dL Magnesium 1.5 L (1.6-2.3) mg/dL Iron (50-170) UG/DL TIBC (228-460) UG/DL % Saturation (12.00-45.00) Transferrin (204.0-354.0) mg/dL Vitamin B12 (200.0-944.0) pg/mL Microbiology - Last 24 Hours (Table) 06/28/24 08:50 Gram Stain - Final Sputum Sputum Culture - Final Staphylococcus aureus 06/28/24 14:46 Blood Culture - Preliminary Blood 06/28/24 14:31 Blood Culture - Preliminary Blood 06/27/24 11:10 Gram Stain - Final Sputum Sputum Culture - Final Staphylococcus aureus Assessment and Plan (1) Sepsis Current Visit: Yes Status: Acute Code(s): A41.9 - SEPSIS, UNSPECIFIED ORGAN ISM SNOMED Code(s): 74771645 (2) Pneumonia Current Visit: Yes Status: Acute Code(s): J18.9 - PNEUMONIA, UNSPECIFIED ORGANISM SNOMED Code(s): 468204724 (3) MSSA (methicillin susceptible Staphylococcus aureus) infection Current Visit: Yes Status: Acute Code(s): A49.01 - METHICILLIN SUSCEP STAPH INFECTION, UNSP SITE SNOMED Code(s): 750405721 Plan: 1patient presenting the hospital with drug overdose with subsequent agitation respiratory distress requiring intubation concerning for possible aspiration pneumonia sputum is now growing MSSA in this patient who did have features of sepsis with fever elevated white count and hypotension requiring low-dose pressor support on initial evaluation. 2-patient did have resolution of her fever the patient white count normalized blood culture have been negative so far 3we will keep the patient on Unasyn and monitor clinical course closely. Mother at the bedside question answered Dictation was produced using [employer] dictation software. please excuse any grammatical, word or spelling errors. Time with Patient: Less than 30
[2024-07-01] MEDS: CISATRACURIUM 2 MG/ML 5 ML VIAL IV ONE (14:56)
[2024-07-01] MEDS: CISATRACURIUM 200 MG in SODIUM CHLORIDE 0.9% 180 ML IV SCH (15:02)
[2024-07-01] MEDS: ARTIFICIAL TEARS-HYPROMELLOSE DROPS 15 ML BTL BOTH EYES SCH (15:02)
[2024-07-01] MEDS: fentaNYL (PF). 1,000 MCG in SODIUM CHLORIDE 0.9% 80 ML IV SCH (15:44)
[2024-07-01 17:29] LABS: Glucose,Whole Blood 109 mg/dL (70-110)
[2024-07-01 18:37] LABS: Glucose,Whole Blood 108 mg/dL (70-110)
[2024-07-01] MEDS: polyethylene glycoL 3350 17 GM POWD.PACK PO SCH (20:49)
[2024-07-01 23:25] LABS: Glucose,Whole Blood 136 mg/dL (70-110)
[2024-07-02 04:30] LABS: ABG Base Excess -2.8 mmol/L; ABG HCO3 25 mmol/L (21-25); ABG Oxygen Saturation 96.5 % (94-97); ABG PCO2 54 mmHg (35-45); ABG PH 7.27 (7.35-7.45); ABG PO2 95 mmHg (83-108); ABG TCO2 26 mmol/L (19-24)
[2024-07-02 04:34] LABS: Allen Test Performed? no
[2024-07-02 05:16] LABS: Basophils % (A) 0 %; Eosinophils % (A) 0 %; HCT 34.3 % (34.0-46.0); HGB 10.3 gm/dL (11.4-16.0); Hypochromasia Marked; Lymphocytes # (A) 0.6 k/uL (1.0-4.8); Lymphocytes % (A) 6 %; MCH 30.5 pg (25.0-35.0); MCV 101.6 fL (80.0-100.0); Macrocytosis Slight; Mean Platelet Volume 8.4; Monocytes # (A) 0.4 k/uL (0-1.0); Monocytes % (A) 4 %; Neutrophils % (A) 89 %; Platelet Count 257 k/uL (150-450); RBC 3.38 m/uL (3.80-5.40); RDW 13.6 % (11.5-15.5); WBC 10.1 k/uL (3.8-10.6)
[2024-07-02 05:21] LABS: Glucose,Whole Blood 113 mg/dL (70-110)
[2024-07-02 05:36] LABS: African American GFR (CKD) >90 (>60 ml/min/1.73 sqM); Anion Gap 6 mmol/L; Blood Urea Nitrogen 7 mg/dL (7-17); Calcium 7.9 mg/dL (8.4-10.2); Carbon Dioxide 22 mmol/L (22-30); Chloride 113 mmol/L (98-107); Glucose 122 mg/dL (74-99); Magnesium 2.3 mg/dL (1.6-2.3); Non-African American GFR(CKD) >90 (>60 ml/min/1.73 sqM); Potassium 4.8 mmol/L (3.5-5.1); Sodium 141 mmol/L (137-145)
--- NOTE | 2024-07-02 07:29 | XR ---
EXAMINATION TYPE: XR chest 1V portable DATE OF EXAM: 07/02/2024 3:34 AM COMPARISON: Multiple radiographs, with the most recent on 07/01/2024. TECHNIQUE: XR chest 1V portable Portable AP radiograph of the chest. CLINICAL INDICATION:Female, 28 years old with history of vent; FINDINGS: Lungs/Pleura: No pneumothorax. Blunting of the right costophrenic angle. Similar bibasilar patchy air space opacities. Heart/mediastinum: Cardiomediastinal silhouette is unremarkable. Musculoskeletal: No acute osseous pathology. Other findings: None Lines/Tubes: Endotracheal tube with distal tip 5.3 cm above the donnie Stable position of the visualized portion of the NG tube. IMPRESSION: 1. Small right pleural effusion with similar bibasilar airspace opacities concerning for pneumonia. 2. Stable support tubes. [facility], , 07/02/2024 7:27 AM
[2024-07-02 09:23] LABS: ABG Base Excess -0.6 mmol/L; ABG HCO3 25 mmol/L (21-25); ABG Oxygen Saturation 95.1 % (94-97); ABG PCO2 42 mmHg (35-45); ABG PH 7.37 (7.35-7.45); ABG PO2 74 mmHg (83-108); ABG TCO2 26 mmol/L (19-24)
[2024-07-02 09:26] LABS: Allen Test Performed? No
--- NOTE | 2024-07-02 10:32 | P.PN ---
Subjective Progress Note Date: 07/02/24 Hospital Course: 28-year-old woman with medical history of anxiety and borderline personality d isorder on Wellbutrin presented after intentional ingestion of Wellbutrin. Upon arrival patient was afebrile, 148/96, heart rate 83. Patient subsequently received activated charcoal, was started on IV fluids, and given a total of 7 mg of Ativan while on continuous telemetry, with heart rates increasing to the 130s to 140s. The ER provider did contact poison control control who recommended medical monitoring until patient is stable for transfer to the mental health unit. Review of lab work shows normal CBC, CO2 of 20, ALT of 91, negative troponin, normal lactic acid, negative salicylate level, alcohol level, Tylenol level. Initial EKG shows normal sinus rhythm with a short VA interval and right axis deviation. Patient was admitted to the cardiac selective floor with telemetry, with low threshold for ICU escalation. RR called on 06/27, patient was extremely agitated hypertensive and tachycardic despite receiving 21 mg of Ativan as well as standing Librium overnight. During the rapid response, patient received an additional 8 mg of Ativan, 50 mg of Benadryl, 5 mg of Haldol. Despite these measures, patient was still extremely agitated requiring 4 point restraints. At this point, decision was made to intubate and sedate the patient at bedside and start the patient on an IV be nzodiazepine drip, propofol drip. Patient was intubated using 200 of propofol, 2 of Nimbex. Initial intubation resulted in right mainstem intubation but resolved after pulling back ET tube. Patient was started on midazolam drip in the ICU, propofol drip. She was saturating well on vent settings. 06/28: patient had sedation holidays , had decreased emesis, was suctioned, sedation holiday stopped. Patient was started on low-dose Levophed overnight. Patient was restarted on propofol, continued on Versed. Started spiking fever 06/28 around 8 in the morning ,she was also started on Zosyn, sputum cultures growing presumptive Staph aureus, added vancomycin. 06/29, yesterday neurology was consulted for concern for possible seizure, patient was started on Depakote, tremoring was reported. CT head showed no acute hemorrhage, areas of low-attenuation in the bilateral cerebellar hemisphere slightly more prominent on the right, per neurology, could be artifact. EEG done in was abnormal, showed background slowing suggestive of mild encephalopathy likely due to toxic metabolic derangement as well as medication use, no epileptiform discharges, seizures. Poison control recommended phenobarbital, and also 570 mg IV once 06/2724 ID consulted. Started on Unasyn on 06/29 06/30: Norepinephrine on hold, patient is afebrile since 06/29 8 AM; spoke with poison control who recommended considering GI consult for possible EGD. Patient continued to have seizure activity due to concern for Wellbutrin capsule being extended release and still remaining in the stomach with systemic release. Disc ussed with neurology, no concern for seizure, will hold IR consult for now. 07/01: --Levophed is on standby. Leukocytosis resolved. Iron came back low at 9, will defer IV iron during active infection treatment. Blood glucose is borderline, will switch to D5 normal saline 07/02: Spiked fever again on 07/01 and07/02, Levophed is on standby. Chest x-ray without significant changes. Patient was started on Nimbex overnight, she was desaturating overnight, this morning FiO2 goal down from 70% to 50%. PEEP of 12. Pertinent Imaging: No significant changes Subjective: Intubated and sedated, paralyzed Vitals Signs Reviewed. General: [, Sedated, morbidly obese Derm: Hypokalemia Hypomagnesemia, [dry] Head: [atraumatic], [normocephalic], [symmetric] Eyes: [EOMI], [no lid lag], [anicteric sclera] Mouth: [no lip lesion], [mucus membranes moist] Cardiovascular: [S1S2 reg], [no murmur] Lungs: [CTA bilateral], [no rhonchi, no rales] , [no accessory muscle use] Abdominal: [soft], [ nontender to palpation], [no guarding], [no appreciable organomegaly] Ext: [no gross muscle atrophy], [nonpitting lower extremity and upper extremity edema], [no contractures] Neuro: Intubated, sedated, paralyzed Psych: Intubated, sedated, paralyzed Data Reviewed Today: Pertinent Labs WBC normal, hemoglobin 10.3, platelet count normal, ABG with pH of 7.37, pCO2 42, PaO2 74, sodium and potassium normal, creatinine 0.43, glucose improved Assessment and Plan: Acute respiratory failure s/p intubation for airway protection 06/27 Sputum cx growing Staph aureus Sepsis likely secondary to aspiration pneumonia Intentional overdose with Wellbutrin Metabolic acidosis Hypokalemia Hypomagnesemia Anxiety Borderline personality disorder -Patient remains in ICU on IV benzodiazepine and propofol drip -Seizure precautions, neurology consulted, EEG: Background slowing, no epileptiform discharge or seizure, continue valproic acid 500 twice daily -1 dose of phenobarbital 06/29 -Continue midazolam drip, uptitrate as warranted -Continue propofol drip -ID consulted, patient started on Unasyn 06/29 -Psychiatry consulted -Pulmonology/ICU care and recommendations appreciated -Electrolytes replaced, follow-up levels ordered -daily CXR Constipation -No bowel movements yet, on MiraLAX and senna, added lactulose Acute anemia Iron deficiency -No signs of bleeding -Likely related to critical illness -Iron low 9, will defer IV iron while treating active infection -No periods reported by nursing staff DVT ppx: Heparin Code status: Full code Anticipated discharge place: Pending clinical course Anticipated discharge time: Pending clinical course Objective - Vital Signs Vital signs: Vital Signs Temp 99.9 F H 07/02/24 08:00 Pulse 75 07/02/24 10:00 Resp 16 07/02/24 10:00 BP 96/59 07/02/24 10:00 Pulse Ox 95 07/02/24 10:00 FiO2 50 07/02/24 09:21 Intake & Output 07/01/24 07/02/24 07/02/24 18:59 06:59 18:59 Intake Total 7299.801 3219.820 691.528 Output Total 1155 875 325 Balance 427.695 0228.820 366.528 Weight 131.7 kg Intake: IV 631 516 242 0.9 @ KVO 120 230 80 Ampicillin-Sulbactam 3 gm 100 200 In Sodium Chloride 0.9% 100 ml @ 200 mls/hr IVPB Q6HR [facility]AB[facility] Rx#:[id number] Dextrose 5%-0.9% NaCl 1, 300 50 150 000 ml @ 50 mls/hr IV . Q20H [facility]ABS Rx#:[id number] Sodium Chloride 0.9% 1, 75 000 ml @ 75 mls/hr IV . [id number] [facility]ABS Rx#:[id number] a-line 3ml 36 36 12 Intake, IV Titration 451.528 0054.820 339.528 Amount Cisatracurium 200 mg In 10.046 142.71 101.494 Sodium Chloride 0.9% 180 ml @ 1 MCG/KG/MIN 7.728 mls/hr IV .Q24H BABS Rx#: [id number] Dextrose 5%-0.9% NaCl 1, 550 50 000 ml @ 50 mls/hr IV . Q20H BABS Rx#:[id number] Midazolam HCl 50 mg In 138.833 139.2 50.0 Sodium Chloride 0.9% 40 ml @ 1 MG/HR 1 mls/hr IV .Q24H [facility]ABS Rx#:[id number] Norepinephrine 4 mg In 42.887 37.688 28.087 Sodium Chloride 0.9% 250 ml @ 0.03 MCG/KG/MIN 12. 996 mls/hr IV .[id number] [facility]ABS Rx#:[id number] fentaNYL (PF). 1,000 mcg 63.434 In Sodium Chloride 0.9% 80 ml @ 0.5 MCG/KG/HR 6. 44 mls/hr IV .[id number] BABS Rx#:[id number] propofoL 1,000 mg In 570.765 398.788 109.947 Empty Bag 1 bag @ 15 MCG/ KG/MIN 9.846 mls/hr IV . [id number] [facility]ABS Rx#:[id number] Tube Feeding 240 240 80 Other 90 90 30 Output: Urine 1155 875 325 Other: Voiding Method Indwelling Catheter Indwelling Catheter Indwelling Catheter ABP, PAP, CO, CI - Last Documented Arterial Blood Pressure 109/68 - Labs CBC & Chem 7: 07/02/24 05:00 07/02/24 05:00 Labs: Abnormal Lab Results - Last 24 Hours (Table) 07/01/24 07/01/24 07/01/24 Range/Units 04:21 12:05 23:23 RBC (3.80-5.40) m/uL Hgb (11.4-16.0) gm/dL MCV (80.0-100.0) fL MCHC (31.0-37.0) g/dL Neutrophils # (1.3-7.7) k/uL Lymphocytes # (1.0-4.8) k/uL ABG pH (7.35-7.45) ABG pCO2 (35-45) mmHg ABG pO2 (83-108) mmHg ABG Total CO2 (19-24) mmol/L Hemoglobin (11.4-16.0) gm/dL Potassium 3.3 L (3.5-5.1) mmol/L Chloride (98-107) mmol/L Creatinine (0.52-1.04) mg/dL Glucose (74-99) mg/dL POC Glucose (mg/dL) 136 H (70-110) mg/dL Calcium (8.4-10.2) mg/dL Iron 9 L (50-170) UG/DL TIBC 162 L (228-460) UG/DL % Saturation 5.56 L (12.00-45.00) Transferrin 116.0 L (204.0-354.0) mg/dL Vitamin B12 1207.0 H (200.0-944.0) pg/mL 07/02/24 07/02/24 07/02/24 Range/Units 03:56 05:00 05:00 RBC 3.38 L (3.80-5.40) m/uL Hgb 10.3 L (11.4-16.0) gm/dL MCV 101.6 H (80.0-100.0) fL MCHC 30.0 L (31.0-37.0) g/dL Neutrophils # 9.0 H (1.3-7.7) k/uL Lymphocytes # 0.6 L (1.0-4.8) k/uL ABG pH 7.27 L (7.35-7.45) ABG pCO2 54 H (35-45) mmHg ABG pO2 (83-108) mmHg ABG Total CO2 26 H (19-24) mmol/L Hemoglobin 10.3 L (11.4-16.0) gm/dL Potassium (3.5-5.1) mmol/L Chloride 113 H (98-107) mmol/L Creatinine 0.43 L (0.52-1.04) mg/dL Glucose 122 H (74-99) mg/dL POC Glucose (mg/dL) (70-110) mg/dL Calcium 7.9 L (8.4-10.2) mg/dL Iron (50-170) UG/DL TIBC (228-460) UG/DL % Saturation (12.00-45.00) Transferrin (204.0-354.0) mg/dL Vitamin B12 (200.0-944.0) pg/mL 07/02/24 07/02/24 Range/Units 05:20 09:20 RBC (3.80-5.40) m/uL Hgb (11.4-16.0) gm/dL MCV (80.0-100.0) fL MCHC (31.0-37.0) g/dL Neutrophils # (1.3-7.7) k/uL Lymphocytes # (1.0-4.8) k/uL ABG pH (7.35-7.45) ABG pCO2 (35-45) mmHg ABG pO2 74 L (83-108) mmHg ABG Total CO2 26 H (19-24) mmol/L Hemoglobin 9.7 L (11.4-16.0) gm/dL Potassium (3.5-5.1) mmol/L Chloride (98-107) mmol/L Creatinine (0.52-1.04) mg/dL Glucose (74-99) mg/dL POC Glucose (mg/dL) 113 H (70-110) mg/dL Calcium (8.4-10.2) mg/dL Iron (50-170) UG/DL TIBC (228-460) UG/DL % Saturation (12.00-45.00) Transferrin (204.0-354.0) mg/dL Vitamin B12 (200.0-944.0) pg/mL Microbiology - Last 24 Hours (Table) 06/28/24 14:46 Blood Culture - Preliminary Blood 06/28/24 14:31 Blood Culture - Preliminary Blood 06/28/24 08:50 Gram Stain - Final Sputum Sputum Culture - Final Staphylococcus aureus
[2024-07-02 11:37] LABS: Glucose,Whole Blood 110 mg/dL (70-110)
--- NOTE | 2024-07-02 13:04 | P.PN ---
Subjective Progress Note Date: 07/02/24 Principal diagnosis: Acute respiratory failure secondary to Wellbutrin overdose This is a 28-year-old female with history of borderline personality disorder, presented yesterday to the ER with intentional suicidal attempt by taking multiple Wellbutrin tablets. According to the chart patient may have taken about 30 tablets. Patient stated to the ER physician that she does not want to live like this anymore, and she took many tablets of Wellbutrin. This was obviously a suicidal attempt. Patient received activated charcoal, patient was admitted to the medical floor, however this morning patient was becoming more and more agitated and restless, becoming more lightheaded, patient was getting quite tachycardic, and hypertensive. Has been receiving Ativan and Librium ov ernight, rapid response team responded to the patient this morning and she received additional 8 mg of Ativan, 50 mg of Benadryl and 5 mg of Haldol. Continued to be agitated and requiring 4 point restraints. At this point patient was intubated, placed on propofol drip and Versed drip, transferred to the ICU, and I saw her on consultation upon arrival. Patient required lines placement including a right femoral triple-lumen catheter and right radial arterial line which was done on emergency basis as the patient had very poor peripheral IV access. Patient was intubated and mechanically ventilated, she is on assist-control rate of 16 tidal volume 450 FiO2 50% and PEEP of 5 ABG showed a pO2 of 364 pCO2 of 39 pH of 7.29 she received 1 amp of bicarb. Patient was on propofol at 50 mcg/kg/min Versed at 3 mg/h IV fluid 0.9 at 75 cc/h and she is on the usual ICU protocol for GI and DVT prophylaxis she is also on ventilatory support, and will address nutritional support later today or tomorrow. CBC showed WBC of 6.3 hemoglobin 12.4 electrolytes showed low potassium of 3.0 being addressed accordingly, labs were all reviewed, test was negative. Drug screen showed positive for benzodiazepines and positive for marijuana. Otherwise was negative. Patient was evaluated today on 06/27/2024, remains in the ICU, intubated and mechanically ventilated. Patient is on assist-control rate of 16 tidal volume 450 FiO2 40% PEEP of 5 ABG showed a pO2 of 114 pCO2 38 pH of 7.43. Patient r emains on propofol at 50 mcg/kg/min she is also on Versed at 5 mg/h and earlier this morning the patient developed low urine output, and low blood pressure, she received multiple fluid boluses about 3 L, and she had to be placed on norepinephrine at 0.01 mcg/kg/min, I feel the hypotension is most likely related to excessive sedation, and her poor urine output is secondary to low blood pressure. Today I recommended that we cut down on her sedation and hopefully try to transition the patient to Precedex if possible. Apparently this was attempted but the patient woke up suddenly and vomited, and was noted to be restless and agitated has recommended that she goes back on Versed and propofol and the dose to be titrated. Patient has not had any seizure activity, she remains on GI and DVT prophylaxis, heparin subcu, remains on seizure precautions, labs today show WBC count of 4.9 hemoglobin 10.8, electrolytes were noted to be normal renal profile is normal creatinine 0.68 CPK elevated at 508 and this is very related to her recent seizure. Chest x-ray continues to show bibasilar atelectasis, doubt infiltrate. Although patient is set up for aspiration. The chest x-ray is not quite impressive to consider starting empiric antibiotics. Patient was seen today on 06/28/2024, patient remains in the ICU, intubated and mechanically ventilated, she is on assist-control rate of 16 tidal volume 400 FiO2 50% and PEEP of 5. Patient had an earlier blood gas on 40% FiO2 which showed a pO2 of 54 pCO2 29 pH of 7.50 and apparently the gas was done earlier shortly after she was witnessed to have an aspiration episode as she woke up and became agitated, she aspirated and developed right lower lobe atelectasis/infiltrate and possibly a small right-sided pleural effusion hence her FiO2 was increased to 50%. Patient is on propofol at 50 mcg/kg/min, Versed and 13 mg/h norepinephrine at 0.02 mcg/kg/min vital HP at 40/45 and IV fluid 0.9 normal saline at 75 cc/h. WBC count is 7.6 hemoglobin is 11.2, basic metabolic profile is relatively normal however her bicarb is 15 potassium is 2.8, anion gap is 6, and her creatinine kinase is 496. Sputum cultures today are showing presumptive Staph aureus, patient was placed earlier today on Zosyn and now I will go ahead and add vancomycin. Patient was seen today on 06/29/2024, patient remains in the ICU, intubated and mechanically ventilated, continues to have intermittent episodes of seizure-like activities although the patient is maximized on propofol at 50 mcg/kg/min on Versed at 15 mg/h patient is requiring norepinephrine at 0.04 mcg/kg/min she is on 0.9 normal saline at 75 cc/h and vital HP at 45 cc/h. CT of the head showed some questionable ischemic injury being addressed by neurology, and recommending eventually MRI. Patient remains on Zosyn and vancomycin for aspiration pneumonia and positive sputum for MRSA. Remains on assist-control rate of 16 tidal volume 400 FiO2 50% and PEEP of 5 ABG showed a pO2 of 70 pCO2 30 pH of 7.42. Hence no changes were made in vent settings. Infectious disease was consulted for her positive Staph aureus in the sputum in the meantime we will continue with vancomycin and Zosyn. Patient clearly had aspiration pneumonia chest x-ray is consistent with aspiration pneumonia. At this point in time the patient is not ready for any weaning as she gets extremely restless and agitated and again she has these episodes of seizure-like activities, Poison control recommended phenobarbital. Patient will be given a dose of phenobarbital x 1. Labs today show WBC is 14.3 hemoglobin 11.2, basic metabolic profile is normal electrolytes are normal bicarb is a bit low at 19 renal profile is normal. CPK is coming down to 302. Patient was seen today on 06/30/2024, remains in the ICU, remains intubated and mechanically ventilated, she is on assist-control rate of 16 tidal volume 400 FiO2 60% and PEEP up to 10. ABG showed a pO2 of 96 pCO2 34 pH of 7.40 her PEEP was at 5 prior to this blood gas, and I increased the PEEP up to 10. Patient remains on Versed at 15 mg/h patient is also on propofol at 75 mg/kg/min norepinephrine is presently on hold patient is receiving fluid at 75 cc/h she is also on vital 20/20 patient is now on Unasyn, and her vancomycin was discontinued because the sputum was positive for MSSA and not MRSA. Urine output is adequate about 50 to 60 cc/h patient received 1 dose of phenobarbital yesterday for extreme agitation, and questionable seizures, neurology has the patient now on Depakote. Overall the patient is not making much improvement, her chest x-ray continues to show worsening of her aspiration pneumonia. And her FiO2 requirement remains relatively high, PEEP was increased today up to 10. Labs today showed WBC count of 12.1 hemoglobin 9.9. Platelets are 191. Basic metabolic profile is normal bicarb is 21 BUN is 6 creatinine 0.45 CPK is down to 248. Patient is now on Unasyn, heparin subcu, Ativan as needed, propofol and Versed, pantoprazole, she received 1 dose of phenobarbital, patient is also receiving valproic acid and Tigan. She is also receiving thiamine Seen today on 07/01/2024, patient remains about the same, remains critically ill, remains intubated mechanically ventilated, on assist-control rate of 16 tidal volume 400 FiO2 60% PEEP of 10 ABG remains marginal with a pO2 of 72 pCO2 34 pH of 7.40. Still requiring significant amount of sedation including Versed at 14 mg/h, norepinephrine at 0.02 presently on hold, she is on propofol at 75 mcg/kg/min. , IV fluids 0.9 normal saline at 75 cc/h. Chest x-ray continues to show significant bilateral airspace disease specially right lower lobe and left lower lobe consistent with aspiration pneumonia. Patient remains on antibiotics. WBC count today is 9.8 hemoglobin 9.9. Electrolytes showed low potassium of 3.3 being addressed accordingly, otherwise the patient has normal renal functioning. Remains on nutritional support/enteral feeding. Patient was seen today on 07/02/2024, remains in the ICU, intubated and mechanically ventilated, sedated, and paralyzed. Yesterday the patient continued to have significant agitation and spite of significant sedation including high-dose propofol, and high-dose Versed, she Desaturating frequently, and FiO2 was increased up to 70%, PEEP was increased up to 12, hence I recommended Nimbex to be started, patient was bolused and placed on Nimbex drip. Remains on Nimbex drip at 1 mcg/kg/min, remains on IV fluid at 50 cc/h in the form of D5.9 she is on fentanyl at 0.5 mcg/kg/h Versed is down to 12 mg/h propofol at 50 mcg/kg/min, patient was also placed on Decadron yesterday for her extensive pneumonic process involving both lower lobes, this was felt to be aspiration pneumonia. Her sputum has been positive for MSSA. Patient remains on GI and DVT prophylaxis. Vent settings today on AC rate of 16 tidal volume of 400 was increased to 500 yesterday, FiO2 down to 50% PEEP is 12 her ABG showed a pO2 of 95 pCO2 54 pH of 7.25 and that is when her tidal volume was increased to 500. Patient remains on nutritional support/enteral feeding, today she is not requiring norepinephrine but she has been intermittently on norepinephrine. Urine output is good about 50 to 60 cc/h. Chest x-ray continues show bilateral extensive infiltrates involving right lower lobe and left lower lobe. Labs today WBC count is 10.1 hemoglobin is 10.3 repeat ABG after vent setting changes showed a pO2 of 74 pCO2 42 pH of 7.37 and this is on 50% FiO2. Objective - Vital Signs Vital signs: Vital Signs Temp 99.9 F H 07/02/24 08:00 Pulse 65 07/02/24 12:15 Resp 16 07/02/24 12:15 BP 101/65 07/02/24 12:15 Pulse Ox 93 L 07/02/24 12:15 FiO2 50 07/02/24 11:50 Intake & Output 07/01/24 07/02/24 07/02/24 18:59 06:59 18:59 Intake Total 1512.638 7270.820 981.710 Output Total 1155 875 430 Balance 391.563 5635.820 551.710 Weight 131.7 kg Intake: IV 631 516 388 0.9 @ KVO 120 230 120 Ampicillin-Sulbactam 3 gm 100 200 In Sodium Chloride 0.9% 100 ml @ 200 mls/hr IVPB Q6HR [facility] Rx#:[id number] Dextrose 5%-0.9% NaCl 1, 300 50 250 000 ml @ 50 mls/hr IV . Q20H [facility] Rx#:[id number] Sodium Chloride 0.9% 1, 75 000 ml @ 75 mls/hr IV . [id number] [facility] Rx#:[id number] a-line 3ml 36 36 18 Intake, IV Titration 047.735 1842.820 413.710 Amount Cisatracurium 200 mg In 10.046 142.71 101.494 Sodium Chloride 0.9% 180 ml @ 1 MCG/KG/MIN 7.728 mls/hr IV .Q24H [facility] Rx#: [id number] Dextrose 5%-0.9% NaCl 1, 550 50 000 ml @ 50 mls/hr IV . Q20H [facility] Rx#:[id number] Midazolam HCl 50 mg In 138.833 139.2 50.0 Sodium Chloride 0.9% 40 ml @ 1 MG/HR 1 mls/hr IV .Q24H [facility] Rx#:[id number] Norepinephrine 4 mg In 42.887 37.688 28.087 Sodium Chloride 0.9% 250 ml @ 0.03 MCG/KG/MIN 12. 996 mls/hr IV .[id number] [facility] Rx#:[id number] fentaNYL (PF). 1,000 mcg 63.434 In Sodium Chloride 0.9% 80 ml @ 0.5 MCG/KG/HR 6. 44 mls/hr IV .[id number] [facility] Rx#:[id number] propofoL 1,000 mg In 570.765 398.788 184.129 Empty Bag 1 bag @ 15 MCG/ KG/MIN 9.846 mls/hr IV . [id number] [facility] Rx#:[id number] Tube Feeding 240 240 120 Other 90 90 60 Output: Urine 1155 875 430 Other: Voiding Method Indwelling Catheter Indwelling Catheter Indwelling Catheter ABP, PAP, CO, CI - Last Documented Arterial Blood Pressure 96/56 - Exam Gen: Revealed a 28-year-old female obese intubated mechanically ventilated, sedated, also on Nimbex Head: Atraumatic normocephalic HEENT: PERRLA, EOMI, nonicteric no neck masses no JVD CVS: Distant S1-S2, no S3 gallop, 2/6 systolic murmur throughout the precordium Respiratory: Crackles at the bases, no rhonchi no wheezes GI: Obese, soft nontender no rebound no guarding, positive bowel sounds. : no suprapubic tenderness, no CVA tenderness MSK/Derm: No rashes. Skin is dry. And warm Neuro: Could not assess patient is sedated, on multiple sedatives including propofol and Versed, fentanyl and Nimbex Psych: Could not assess. - Labs CBC & Chem 7: 07/02/24 05:00 07/02/24 05:00 Labs: Abnormal Lab Results - Last 24 Hours (Table) 07/01/24 07/02/24 07/02/24 Range/Units 23:23 03:56 05:00 RBC (3.80-5.40) m/uL Hgb (11.4-16.0) gm/dL MCV (80.0-100.0) fL MCHC (31.0-37.0) g/dL Neutrophils # (1.3-7.7) k/uL Lymphocytes # (1.0-4.8) k/uL ABG pH 7.27 L (7.35-7.45) ABG pCO2 54 H (35-45) mmHg ABG pO2 (83-108) mmHg ABG Total CO2 26 H (19-24) mmol/L Hemoglobin 10.3 L (11.4-16.0) gm/dL Chloride 113 H (98-107) mmol/L Creatinine 0.43 L (0.52-1.04) mg/dL Glucose 122 H (74-99) mg/dL POC Glucose (mg/dL) 136 H (70-110) mg/dL Calcium 7.9 L (8.4-10.2) mg/dL 07/02/24 07/02/24 07/02/24 Range/Units 05:00 05:20 09:20 RBC 3.38 L (3.80-5.40) m/uL Hgb 10.3 L (11.4-16.0) gm/dL MCV 101.6 H (80.0-100.0) fL MCHC 30.0 L (31.0-37.0) g/dL Neutrophils # 9.0 H (1.3-7.7) k/uL Lymphocytes # 0.6 L (1.0-4.8) k/uL ABG pH (7.35-7.45) ABG pCO2 (35-45) mmHg ABG pO2 74 L (83-108) mmHg ABG Total CO2 26 H (19-24) mmol/L Hemoglobin 9.7 L (11.4-16.0) gm/dL Chloride (98-107) mmol/L Creatinine (0.52-1.04) mg/dL Glucose (74-99) mg/dL POC Glucose (mg/dL) 113 H (70-110) mg/dL Calcium (8.4-10.2) mg/dL Microbiology - Last 24 Hours (Table) 06/28/24 14:46 Blood Culture - Preliminary Blood 06/28/24 14:31 Blood Culture - Preliminary Blood 06/28/24 08:50 Gram Stain - Final Sputum Sputum Culture - Final Staphylococcus aureus Assessment and Plan Assessment: Impression: Acute respiratory failure, secondary to Wellbutrin overdose which required significant amount of sedation and patient developed respiratory failure requiring intubation and mechanical ventilation and needed to be intubated for protection of her airways as the patient received significant amount of sedation to control her agitation from Wellbutrin overdose. Again patient was intubated to protect her airways. Acute hypoxic respiratory failure secondary to pneumonia which has developed post intubation, on Unasyn Wellbutrin overdose Borderline personality disorder Suicidal attempt Aspiration pneumonia Sepsis secondary to aspiration pneumonia Electrolytes imbalance History of generalized anxiety disorder MRSA pneumonia Recommendation: Continue ventilatory support, not ready for weaning, patient is still requiring significant amount of sedation and paralysis to adequately ventilate maintain adequate O2 saturation Continue antibiotics /Unasyn mostly for aspiration pneumonia Continue Depakote Continue GI and DVT prophylaxis Continue propofol and Versed, fentanyl and Versed, however now that we have Nimbex, we could cut down significantly on the Versed and on the propofol. Continue seizure precautions, and continue seizure meds as per neurology on the case. Prognosis is guarded. Patient remains critically ill No plans to do any weaning today as the patient is not ready for this. Critical care time is 33 minutes Time with Patient: Greater than 30
--- NOTE | 2024-07-02 14:17 | P.PN ---
Subjective Progress Note Date: 07/02/24 Principal diagnosis: Reason for follow-up is MSSA/aspiration pneumonia Patient is a 28-year-old female with a past medical history of dependent for reflux, anxiety and depression presenting to the hospital after the patient overdosed on 50-90 Wellbutrin tablets subsequent did have a agitation respiratory distress requiring revision admission to the ICU ID consulted because of concern for aspiration pneumonia. On today's evaluation that is 07/02/2024, Patient did have a low-grade fever of 99.9 F this morning patient also seen to have problem with oxygenation re quiring paralytic and increasing her FiO2 he did have more respiratory secretion yesterday than today and is requiring off and on pressor support as reported by the nursing staff. Patient white count is normal at 10.1 creatinine is 0.43 blood culture remains to be negative Objective - Vital Signs Vital signs: Vital Signs Temp 99.9 F H 07/02/24 08:00 Pulse 67 07/02/24 13:15 Resp 16 07/02/24 13:15 BP 94/61 07/02/24 13:15 Pulse Ox 88 L 07/02/24 13:15 FiO2 55 07/02/24 13:23 Intake & Output 07/01/24 07/02/24 07/02/24 18:59 06:59 18:59 Intake Total 7444.488 5653.820 1074.710 Output Total 1155 875 460 Balance 815.553 1857.820 614.710 Weight 131.7 kg Intake: IV 631 516 461 0.9 @ KVO 120 230 140 Ampicillin-Sulbactam 3 gm 100 200 In Sodium Chloride 0.9% 100 ml @ 200 mls/hr IVPB Q6HR [facility] Rx#:[id number] Dextrose 5%-0.9% NaCl 1, 300 50 300 000 ml @ 50 mls/hr IV . Q20H [facility] Rx#:[id number] Sodium Chloride 0.9% 1, 75 000 ml @ 75 mls/hr IV . [id number] [facility] Rx#:[id number] a-line 3ml 36 36 21 Intake, IV Titration 353.884 8572.820 413.710 Amount Cisatracurium 200 mg In 10.046 142.71 101.494 Sodium Chloride 0.9% 180 ml @ 1 MCG/KG/MIN 7.728 mls/hr IV .Q24H [facility] Rx#: [id number] Dextrose 5%-0.9% NaCl 1, 550 50 000 ml @ 50 mls/hr IV . Q20H [facility] Rx#:[id number] Midazolam HCl 50 mg In 138.833 139.2 50.0 Sodium Chloride 0.9% 40 ml @ 1 MG/HR 1 mls/hr IV .Q24H [facility] Rx#:[id number] Norepinephrine 4 mg In 42.887 37.688 28.087 Sodium Chloride 0.9% 250 ml @ 0.03 MCG/KG/MIN 12. 996 mls/hr IV .[id number] [facility] Rx#:[id number] fentaNYL (PF). 1,000 mcg 63.434 In Sodium Chloride 0.9% 80 ml @ 0.5 MCG/KG/HR 6. 44 mls/hr IV .[id number] [facility] Rx#:[id number] propofoL 1,000 mg In 570.765 398.788 184.129 Empty Bag 1 bag @ 15 MCG/ KG/MIN 9.846 mls/hr IV . [id number] [facility] Rx#:[id number] Tube Feeding 240 240 140 Other 90 90 60 Output: Urine 1155 875 460 Other: Voiding Method Indwelling Catheter Indwelling Catheter Indwelling Catheter ABP, PAP, CO, CI - Last Documented Arterial Blood Pressure 112/70 - Exam GENERAL DESCRIPTION: Middle-age female intubated on the vent RESPIRATORY SYSTEM: Unlabored breathing , decreased breath sounds at bases HEART: S1 S2 regular rate and rhythm , ABDOMEN: Soft , no tenderness EXTREMITIES: No edema feet - Labs CBC & Chem 7: 07/02/24 05:00 07/02/24 05:00 Labs: Abnormal Lab Results - Last 24 Hours (Table) 07/01/24 07/02/24 07/02/24 Range/Units 23:23 03:56 05:00 RBC (3.80-5.40) m/uL Hgb (11.4-16.0) gm/dL MCV (80.0-100.0) fL MCHC (31.0-37.0) g/dL Neutrophils # (1.3-7.7) k/uL Lymphocytes # (1.0-4.8) k/uL ABG pH 7.27 L (7.35-7.45) ABG pCO2 54 H (35-45) mmHg ABG pO2 (83-108) mmHg ABG Total CO2 26 H (19-24) mmol/L Hemoglobin 10.3 L (11.4-16.0) gm/dL Chloride 113 H (98-107) mmol/L Creatinine 0.43 L (0.52-1.04) mg/dL Glucose 122 H (74-99) mg/dL POC Glucose (mg/dL) 136 H (70-110) mg/dL Calcium 7.9 L (8.4-10.2) mg/dL 07/02/24 07/02/24 07/02/24 Range/Units 05:00 05:20 09:20 RBC 3.38 L (3.80-5.40) m/uL Hgb 10.3 L (11.4-16.0) gm/dL MCV 101.6 H (80.0-100.0) fL MCHC 30.0 L (31.0-37.0) g/dL Neutrophils # 9.0 H (1.3-7.7) k/uL Lymphocytes # 0.6 L (1.0-4.8) k/uL ABG pH (7.35-7.45) ABG pCO2 (35-45) mmHg ABG pO2 74 L (83-108) mmHg ABG Total CO2 26 H (19-24) mmol/L Hemoglobin 9.7 L (11.4-16.0) gm/dL Chloride (98-107) mmol/L Creatinine (0.52-1.04) mg/dL Glucose (74-99) mg/dL POC Glucose (mg/dL) 113 H (70-110) mg/dL Calcium (8.4-10.2) mg/dL Microbiology - Last 24 Hours (Table) 06/28/24 14:46 Blood Culture - Preliminary Blood 06/28/24 14:31 Blood Culture - Preliminary Blood Assessment and Plan (1) Sepsis Current Visit: Yes Status: Acute Code(s): A41.9 - SEPSIS, UNSPECIFIED ORGANI SM SNOMED Code(s): 20298289 (2) Pneumonia Current Visit: Yes Status: Acute Code(s): J18.9 - PNEUMONIA, UNSPECIFIED ORGANISM SNOMED Code(s): 515893384 (3) MSSA (methicillin susceptible Staphylococcus aureus) infection Current Visit: Yes Status: Acute Code(s): A49.01 - METHICILLIN SUSCEP STAPH INFECTION, UNSP SITE SNOMED Code(s): 170450095 Plan: 1patient presenting the hospital with drug overdose with subsequent agitation respiratory distress requiring intubation concerning for possible aspiration pneumonia sputum is now growing MSSA in this patient who did have features of sepsis with fever elevated white count and hypotension requiring low-dose pressor support on initial evaluation. 2-patient did have resolution of her fever the patient white count normalized blood culture have been negative so far, sputum is growing MSSA 3patient is currently being treated with Unasyn if any new fever or worsening respiratory secretion will have to reculture and adjust antibiotics then discuss ed with nursing staff Mother at the bedside question answered Dictation was produced using [employer] dictation software. please excuse any grammatical, word or spelling errors. Time with Patient: Less than 30
--- NOTE | 2024-07-02 14:36 | P.PN ---
Subjective Progress Note Date: 07/02/24 Patient initially seen by Dr. Jose Angel Mccoy. Please refer to his note for details. Patient is a 28-year-old female came with Wellbutrin overdose. Ingested at least 50 tablets of Wellbutrin. Patient had seizure-like activity and is on Depakote, maxed on Versed and propofol. 2 EEGs have been negative. Patient was seen for follow-up. Patient continues to be intubated, sedated on propofol 50 mcg/kg/min. Also on fentanyl 0.5 mcg/kg/h and Versed 11 mg/h. Patient also on Nimbex 1 mg/kg/min. Per nursing report, patient became acutely agitated, tried to sit up, vomited, and then aspirated really bad. Patient is on antibiotics. No seizure-like activity has been noticed since patient is on Depakote. Patient is on maximal dose of Versed and propofol. Patient is also on thiamine 100 mg IV daily. Patient was given phenobarbital x 1 dose as recommended by the poison control. Some of the workup at this hospital visit consisted of: White blood cell is within normal limits Level is for 96 Calcium is 6.1 and ionized calcium is 4.7 Magnesium is 1.2 POC glucose is 56 and repeated is in the low 100s. Sodium is within normal limits UDS is positive for benzo as well as marijuana. Routine EEG on 06/26/2024: Is abnormal. The background slowing is suggestive of mild encephalopathy likely due to toxic-metabolic derragement as well as medication use (IV Propofol, Versed and Ativan). Otherwise, no focal slowing, epileptiform discharges or seizures. CT head: No acute intracranial hemorrhage or midline shift is seen. Vauge areas of low attenuation in the bilateral cerebellar hemispheres slightly more prominent on the right are identified. Ischemic injury is in the differential. Other etiologies not excluded. I personally reviewed CT and I personally could not rule out artifact as well. Repeat CT of the head is reported as no acute intracranial process. No significant interval change from the comparison. Repeat EEG: Is abnormal. The background slowing is suggestive of severe encephalopathy. Severe encephalopathy is likely due to toxic metabolic deran gement as well as medication induced. The diffuse suppression is likely due to medication induced (Versed as well as Ativan and propofol). Otherwise there is no focal slowing, OptiForm discharge or seizure on the EEG. Patient probably Objective - Vital Signs Vital signs: Vital Signs Temp 99.9 F H 07/02/24 08:00 Pulse 65 07/02/24 12:15 Resp 16 07/02/24 12:15 BP 101/65 07/02/24 12:15 Pulse Ox 93 L 07/02/24 12:15 FiO2 50 07/02/24 11:50 Intake & Output 07/01/24 07/02/24 07/02/24 18:59 06:59 18:59 Intake Total 8123.579 6840.820 981.710 Output Total 1155 875 430 Balance 695.397 2142.820 551.710 Weight 131.7 kg Intake: IV 631 516 388 0.9 @ KVO 120 230 120 Ampicillin-Sulbactam 3 gm 100 200 In Sodium Chloride 0.9% 100 ml @ 200 mls/hr IVPB Q6HR [facility] Rx#:[id number] Dextrose 5%-0.9% NaCl 1, 300 50 250 000 ml @ 50 mls/hr IV . Q20H BABS Rx#:[id number] Sodium Chloride 0.9% 1, 75 000 ml @ 75 mls/hr IV . [id number] BABS Rx#:[id number] a-line 3ml 36 36 18 Intake, IV Titration 165.235 8913.820 413.710 Amount Cisatracurium 200 mg In 10.046 142.71 101.494 Sodium Chloride 0.9% 180 ml @ 1 MCG/KG/MIN 7.728 mls/hr IV .Q24H BABS Rx#: [id number] Dextrose 5%-0.9% NaCl 1, 550 50 000 ml @ 50 mls/hr IV . Q20H BABS Rx#:[id number] Midazolam HCl 50 mg In 138.833 139.2 50.0 Sodium Chloride 0.9% 40 ml @ 1 MG/HR 1 mls/hr IV .Q24H [facility]ABS Rx#:[id number] Norepinephrine 4 mg In 42.887 37.688 28.087 Sodium Chloride 0.9% 250 ml @ 0.03 MCG/KG/MIN 12. 996 mls/hr IV .[id number] BABS Rx#:[id number] fentaNYL (PF). 1,000 mcg 63.434 In Sodium Chloride 0.9% 80 ml @ 0.5 MCG/KG/HR 6. 44 mls/hr IV .[id number] BABS Rx#:[id number] propofoL 1,000 mg In 570.765 398.788 184.129 Empty Bag 1 bag @ 15 MCG/ KG/MIN 9.846 mls/hr IV . [id number] BABS Rx#:[id number] Tube Feeding 240 240 120 Other 90 90 60 Output: Urine 1155 875 430 Other: Voiding Method Indwelling Catheter Indwelling Catheter Indwelling Catheter ABP, PAP, CO, CI - Last Documented Arterial Blood Pressure - Exam Exam limited, as patient is intubated, sedated and on Nimbex. Patient completely unresponsive. Exam limited due to being on medications as mentioned above - Labs CBC & Chem 7: 07/02/24 05:00 07/02/24 05:00 Labs: Abnormal Lab Results - Last 24 Hours (Table) 07/01/24 07/02/24 07/02/24 Range/Units 23:23 03:56 05:00 RBC (3.80-5.40) m/uL Hgb (11.4-16.0) gm/dL MCV (80.0-100.0) fL MCHC (31.0-37.0) g/dL Neutrophils # (1.3-7.7) k/uL Lymphocytes # (1.0-4.8) k/uL ABG pH 7.27 L (7.35-7.45) ABG pCO2 54 H (35-45) mmHg ABG pO2 (83-108) mmHg ABG Total CO2 26 H (19-24) mmol/L Hemoglobin 10.3 L (11.4-16.0) gm/dL Chloride 113 H (98-107) mmol/L Creatinine 0.43 L (0.52-1.04) mg/dL Glucose 122 H (74-99) mg/dL POC Glucose (mg/dL) 136 H (70-110) mg/dL Calcium 7.9 L (8.4-10.2) mg/dL 07/02/24 07/02/24 07/02/24 Range/Units 05:00 05:20 09:20 RBC 3.38 L (3.80-5.40) m/uL Hgb 10.3 L (11.4-16.0) gm/dL MCV 101.6 H (80.0-100.0) fL MCHC 30.0 L (31.0-37.0) g/dL Neutrophils # 9.0 H (1.3-7.7) k/uL Lymphocytes # 0.6 L (1.0-4.8) k/uL ABG pH (7.35-7.45) ABG pCO2 (35-45) mmHg ABG pO2 74 L (83-108) mmHg ABG Total CO2 26 H (19-24) mmol/L Hemoglobin 9.7 L (11.4-16.0) gm/dL Chloride (98-107) mmol/L Creatinine (0.52-1.04) mg/dL Glucose (74-99) mg/dL POC Glucose (mg/dL) 113 H (70-110) mg/dL Calcium (8.4-10.2) mg/dL Microbiology - Last 24 Hours (Table) 06/28/24 14:46 Blood Culture - Preliminary Blood 06/28/24 14:31 Blood Culture - Preliminary Blood 06/28/24 08:50 Gram Stain - Final Sputum Sputum Culture - Final Staphylococcus aureus Assessment and Plan Assessment: This is a 28-year-old woman with a history of borderline personality disorder who presented emergency department because of a suicidal attempt by taking multiple Wellbutrin tablets. During this hospital visit the patient is agitated, restless tachycardic hypertensive requiring Ativan, Librium Benadryl and Haldol. She was intubated on ventilator and she required IV propofol Versed and when was weaned down nurse felt maybe there was a seizure-like activity but upon asking the nurse it seems that the patient was having tremor and no convulsion Questionable few episode of seizure-like activity: Unsure if patient is having withdrawing symptoms. If she did have a seizure its likely provoked due to her metabolic derangement and perhaps due to lowering seizure threshold from Wellbutrin. She had 2 EEG so far and negative for seizure or discharges. Is on High dose Versed and Propofol and is on Depakote. Metabolic encephalopathy, severe degree Suicidal attempt Hypoglycemia Hypomagnesium History of borderline personality disorder Plan: Patient had a repeat CT head performed on 06/29/2024, which revealed no acute intracranial process. Patient is on Valproic acid 500 mg twice daily which helps with the seizures as well as the mood Med Ativan 1 mg every hour as needed for seizures Seizure precaution and pads Psychiatry is consulted Please avoid any further hypoglycemia and will defer correction of the electrolyte imbalance to primary and ICU team. Will defer the rest of the medical management to primary other specialist Plan discussed with the ICU nurse. Also discussed at length with patient's parents who were present at the bedside.
--- NOTE | 2024-07-02 15:06 | XR ---
EXAMINATION TYPE: XR chest 1V portable DATE OF EXAM: 07/02/2024 2:59 PM COMPARISON: Multiple prior chest radiograph, most recently dated 2024. CLINICAL INDICATION: Female, 28 years old with history of SOB, low spo2; [facility] TECHNIQUE: XR chest 1V portable Frontal view of the chest. FINDINGS: Lungs/Pleura: Bibasilar opacities and small right pleural effusion. No pneumothorax. Pulmonary vascularity: Unremarkable. Heart/mediastinum: Cardiomediastinal silhouette is unremarkable. Musculoskeletal: No acute osseous pathology. Other findings: None Lines/Tubes: Endotracheal tube terminates 5.7 cm above the donnie. Enteric tube appears in appropriate positioning with distal tip and sidehole overlying the gastric lumen. IMPRESSION: Stable radiograph appearance of the chest compared to most recent prior study. [facility], , 07/02/2024 3:04 PM
--- NOTE | 2024-07-02 18:44 | CT ---
EXAMINATION TYPE: CT angio chest DATE OF EXAM: 07/02/2024 6:28 PM COMPARISON: Chest radiograph 2024. CLINICAL INDICATION: Female, 28 years old with history of elevated d-dimer; Positive dimer TECHNIQUE/CONTRAST: CTA scan of the thorax is performed with IV Contrast, patient injected with 100 mL of Isovue 370, MIP images are created and reviewed these are created on a separate workstation.. CT DLP: 1319.2 mGycm, Automated exposure control for dose reduction was used. FINDINGS: Pulmonary Artery: There is no evidence for a filling defect within the pulmonary vasculature to sugge st acute pulmonary embolism. The pulmonary artery is of normal size. Lungs/Pleura: Small bilateral pleural effusions, right greater than left with lower lobe predominant consolidative changes. Additionally, there is consolidation in the right middle lobe and lingular por tions of the left upper lobe. No pneumothorax. Airway: Endotracheal tube terminates partially 1 cm above donnie. Low lung volumes. Heart: Cardiomegaly with epicardial effusion. Vasculature: No evidence of aortic aneurysm. Mediastinum: No gross evidence of adenopathy. Musculoskeletal: No acute osseous abnormalities Soft Tissues/lymph nodes: Unremarkable. Lower neck: No significant findings. Upper Abdomen: No significant acute findings. Splenomegaly. Enteric tube terminating in the stomach. IMPRESSION: 1. No evidence of acute pulmonary embolism. 2. Consolidative changes throughout the lungs as described above suggestive of multifocal pneumonia. Endotracheal tube terminates proximally 1 cm above the donnie. 3. Cardiomegaly and small bilateral pleural effusions. [facility], , 07/02/2024 6:41 PM
[2024-07-02 19:00] LABS: Glucose,Whole Blood 120 mg/dL (70-110)
[2024-07-03 04:38] LABS: Basophils % (A) 0 %; Eosinophils % (A) 0 %; HCT 33.2 % (34.0-46.0); HGB 9.9 gm/dL (11.4-16.0); Hypochromasia Slight; Lymphocytes % (A) 12 %; MCH 29.8 pg (25.0-35.0); MCHC 29.7 g/dL (31.0-37.0); MCV 100.3 fL (80.0-100.0); Macrocytosis Slight; Mean Platelet Volume 8.8; Monocytes # (A) 0.3 k/uL (0-1.0); Monocytes % (A) 4 %; Neutrophils # (A) 6.9 k/uL (1.3-7.7); Neutrophils % (A) 83 %; Platelet Count 248 k/uL (150-450); RBC 3.31 m/uL (3.80-5.40); WBC 8.4 k/uL (3.8-10.6)
[2024-07-03 05:04] LABS: African American GFR (CKD) >90 (>60 ml/min/1.73 sqM); Anion Gap 6 mmol/L; Blood Urea Nitrogen 11 mg/dL (7-17); Carbon Dioxide 25 mmol/L (22-30); Chloride 112 mmol/L (98-107); Glucose 137 mg/dL (74-99); Magnesium 2.3 mg/dL (1.6-2.3); Non-African American GFR(CKD) >90 (>60 ml/min/1.73 sqM); Potassium 3.9 mmol/L (3.5-5.1); Sodium 143 mmol/L (137-145)
[2024-07-03 05:35] LABS: ABG Base Excess 1.5 mmol/L; ABG HCO3 27 mmol/L (21-25); ABG Oxygen Saturation 93.2 % (94-97); ABG PCO2 44 mmHg (35-45); ABG PO2 69 mmHg (83-108); ABG TCO2 28 mmol/L (19-24)
[2024-07-03 05:43] LABS: Allen Test Performed? No
[2024-07-03] MEDS: POTASSIUM BICARBONATE/CIT AC 20 MEQ TABLET.EFF NG-TUBE SCH (06:14)
[2024-07-03 06:18] LABS: Glucose,Whole Blood 106 mg/dL (70-110)
--- NOTE | 2024-07-03 07:23 | XR ---
EXAMINATION TYPE: XR chest 1V portable DATE OF EXAM: 07/03/2024 5:23 AM COMPARISON: 07/02/2024 CLINICAL INDICATION: Female, 28 years old with history of vent, Chest pain TECHNIQUE: Single frontal view of the chest is obtained. FINDINGS: Patchy basilar infiltrates. Increase in the interval. Correlate for pneumonia. Small effusions diffic ult to exclude as well. Endotracheal and NG tube appear to be unchanged in position. No evidence of p neumothorax. The cardiac silhouette size is within normal limits. The osseous structures are intact. IMPRESSION: 1. Patchy basilar infiltrates. Increase in the interval. Correlate for pneumonia. Small effusions di fficult to exclude as well. [facility], , 07/03/2024 7:20 AM
--- NOTE | 2024-07-03 11:12 | P.PN ---
Subjective Progress Note Date: 07/03/24 Hospital Course: 28-year-old woman with medical history of anxiety and borderline personality d isorder on Wellbutrin presented after intentional ingestion of Wellbutrin. Upon arrival patient was afebrile, 148/96, heart rate 83. Patient subsequently received activated charcoal, was started on IV fluids, and given a total of 7 mg of Ativan while on continuous telemetry, with heart rates increasing to the 130s to 140s. The ER provider did contact poison control control who recommended medical monitoring until patient is stable for transfer to the mental health unit. Review of lab work shows normal CBC, CO2 of 20, ALT of 91, negative troponin, normal lactic acid, negative salicylate level, alcohol level, Tylenol level. Initial EKG shows normal sinus rhythm with a short ID interval and right axis deviation. Patient was admitted to the cardiac selective floor with telemetry, with low threshold for ICU escalation. RR called on 06/27, patient was extremely agitated hypertensive and tachycardic despite receiving 21 mg of Ativan as well as standing Librium overnight. During the rapid response, patient received an additional 8 mg of Ativan, 50 mg of Benadryl, 5 mg of Haldol. Despite these measures, patient was still extremely agitated requiring 4 point restraints. At this point, decision was made to intubate and sedate the patient at bedside and start the patient on an IV be nzodiazepine drip, propofol drip. Patient was intubated using 200 of propofol, 2 of Nimbex. Initial intubation resulted in right mainstem intubation but resolved after pulling back ET tube. Patient was started on midazolam drip in the ICU, propofol drip. She was saturating well on vent settings. Started spiking fever 06/28 around 8 in the morning ,she was also started on Zosyn, sputum cultures growing presumptive Staph aureus, added vancomycin.ID consulted. switched to Unasyn on 06/29 neurology was consulted for concern for possible seizure, patient was started on Depakote, tremoring was reported. CT head showed no acute hemorrhage, areas of low-attenuation in the bilateral cerebellar hemisphere slightly more prominent on the right, per neurology, could be artifact. EEG done in was abnormal, showed background slowing suggestive of mild encephalopathy likely due to toxic metabolic derangement as well as medication use, no epileptiform discharges, seizures. Poison control recommended phenobarbital, and also 570 mg IV once 06/2724:; spoke with poison control who recommended considering GI consult for possible EGD. Patient continued to have seizure activity due to concern for Wellbutrin capsule being extended release and still remaining in the stomach with systemic release. Discussed with neurology, no concern for seizure, will hold IR consult for now. 07/02: Spiked fever again on 07/01 and07/02, Levophed is on standby. Chest x-ray without significant changes. Patient was started on Nimbex overnight, she was desaturating overnight, this morning FiO2 goal down from 70% to 50%. PEEP of 12. CTA showed no evidence of PE, consolidative changes throughout the lungs suggestive of multifocal pneumonia cardiomegaly left small bilateral pleural effusions 07/03: Patient will be considered for trach and PEG soon, Patient doesn't have close relationship with parents, hasn't talked to them for several years reportedly, parents briefly visited and left to [place]. Subjective: Intubated and sedated, paralyzed Vitals Signs Reviewed. General: [, Sedated, morbidly obese Head: [atraumatic], [normocephalic], [symmetric] Eyes: [EOMI], [no lid lag], [anicteric sclera] Mouth: [no lip lesion], [mucus membranes moist] Cardiovascular: [S1S2 reg], [no murmur] Lungs: [Bilateral rhonchi no wheezing Abdominal: [soft], [ nontender to palpation], [no guarding], [no appreciable or ganomegaly] Ext: [no gross muscle atrophy], [nonpitting lower extremity and upper extremity edema], [no contractures] Neuro: Intubated, sedated, paralyzed Psych: Intubated, sedated, paralyzed Data Reviewed Today: Pertinent Labs WBC normal, hemoglobin stable 9.9, platelet count normal, ABG with pH of 7.4, pCO2 44 and pO2 69, sodium and potassium WNL, creatinine 0.42, glucose 137, magnesium 2.3 Assessment and Plan: Acute respiratory failure s/p intubation for airway protection 06/27 Sputum cx growing Staph aureus Sepsis likely secondary to aspiration pneumonia Intentional overdose with Wellbutrin Metabolic acidosis Hypokalemia Hypomagnesemia Anxiety Borderline personality disorder -Patient remains in ICU on IV benzodiazepine and propofol drip -Seizure precautions, neurology consulted, EEG: Background slowing, no epileptiform discharge or seizure, continue valproic acid 500 twice daily -1 dose of phenobarbital 06/29 -Continue midazolam drip, uptitrate as warranted -Continue propofol drip -ID consulted, patient started on Unasyn 06/29 -Psychiatry consulted -Pulmonology/ICU care and recommendations appreciated -CTA showed no evidence of PE, consolidative changes throughout the lungs suggestive of multifocal pneumonia cardiomegaly left small bilateral pleural effusions -Electrolytes replaced, follow-up levels ordered -daily CXR Constipation -No bowel movements yet, on MiraLAX and senna, added lactulose Acute anemia Iron deficiency -No signs of bleeding -Likely related to critical illness -Iron low 9, will defer IV iron while treating active infection -No periods reported by nursing staff DVT ppx: Heparin Code status: Full code Anticipated discharge place: Pending clinical course Anticipated discharge time: Pending clinical course Objective - Vital Signs Vital signs: Vital Signs Temp 98.0 F 07/03/24 08:00 Pulse 78 07/03/24 10:00 Resp 16 07/03/24 10:00 BP 104/66 07/03/24 10:00 Pulse Ox 96 07/03/24 10:00 FiO2 70 07/03/24 10:00 Intake & Output 07/02/24 07/03/24 07/03/24 18:59 06:59 18:59 Intake Total 8190.603 3099.040 711.753 Output Total 610 570 109 Balance 1251.746 926.040 602.753 Weight 134.1 kg Intake: IV 826 786 252 0.9 @ KVO 240 150 40 Dextrose 5%-0.9% NaCl 1, 550 600 200 000 ml @ 50 mls/hr IV . Q20H BABS Rx#:[id number] a-line 3ml 36 36 12 Intake, IV Titration 755.746 380.040 329.753 Amount Cisatracurium 200 mg In 161.515 34.776 165.224 Sodium Chloride 0.9% 180 ml @ 1 MCG/KG/MIN 7.728 mls/hr IV .Q24H BABS Rx#: [id number] Dextrose 5%-0.9% NaCl 1, 50 000 ml @ 50 mls/hr IV . Q20H BABS Rx#:[id number] Midazolam HCl 50 mg In 149.317 90.017 45.283 Sodium Chloride 0.9% 40 ml @ 1 MG/HR 1 mls/hr IV .Q24H BABS Rx#:[id number] Norepinephrine 4 mg In 28.087 Sodium Chloride 0.9% 250 ml @ 0.03 MCG/KG/MIN 12. 996 mls/hr IV .[id number] BABS Rx#:[id number] propofoL 1,000 mg In 366.827 255.247 119.246 Empty Bag 1 bag @ 15 MCG/ KG/MIN 9.846 mls/hr IV . [id number] BABS Rx#:[id number] Oral 50 Tube Feeding 220 240 80 Other 60 90 Output: Urine 610 570 109 Other: Voiding Method Indwelling Catheter Indwelling Catheter Indwelling Catheter ABP, PAP, CO, CI - Last Documented Arterial Blood Pressure 113/62 - Labs CBC & Chem 7: 07/03/24 04:20 07/03/24 04:20 Labs: Abnormal Lab Results - Last 24 Hours (Table) 07/02/24 07/02/24 07/03/24 Range/Units 16:15 18:59 04:20 RBC 3.31 L (3.80-5.40) m/uL Hgb 9.9 L (11.4-16.0) gm/dL Hct 33.2 L (34.0-46.0) % MCV 100.3 H (80.0-100.0) fL MCHC 29.7 L (31.0-37.0) g/dL D-Dimer 1.56 H (<0.60) mg/L FEU ABG pO2 (83-108) mmHg ABG HCO3 (21-25) mmol/L ABG Total CO2 (19-24) mmol/L ABG O2 Saturation (94-97) % Hemoglobin (11.4-16.0) gm/dL Chloride (98-107) mmol/L Creatinine (0.52-1.04) mg/dL Glucose (74-99) mg/dL POC Glucose (mg/dL) 120 H (70-110) mg/dL Calcium (8.4-10.2) mg/dL 07/03/24 07/03/24 Range/Units 04:20 04:59 RBC (3.80-5.40) m/uL Hgb (11.4-16.0) gm/dL Hct (34.0-46.0) % MCV (80.0-100.0) fL MCHC (31.0-37.0) g/dL D-Dimer (<0.60) mg/L FEU ABG pO2 69 L (83-108) mmHg ABG HCO3 27 H (21-25) mmol/L ABG Total CO2 28 H (19-24) mmol/L ABG O2 Saturation 93.2 L (94-97) % Hemoglobin 9.9 L (11.4-16.0) gm/dL Chloride 112 H (98-107) mmol/L Creatinine 0.42 L (0.52-1.04) mg/dL Glucose 137 H (74-99) mg/dL POC Glucose (mg/dL) (70-110) mg/dL Calcium 8.0 L (8.4-10.2) mg/dL
[2024-07-03 12:16] LABS: Glucose,Whole Blood 94 mg/dL (70-110)
--- NOTE | 2024-07-03 13:17 | P.PN ---
Subjective Progress Note Date: 07/03/24 This is a 28-year-old female with history of borderline personality disorder, presented yesterday to the ER with intentional suicidal attempt by taking multiple Wellbutrin tablets. According to the chart patient may have taken about 30 tablets. Patient stated to the ER physician that she does not want to live like this anymore, and she took many tablets of Wellbutrin. This was obviously a suicidal attempt. Patient received activated charcoal, patient was admitted to the medical floor, however this morning patient was becoming more and more agitated and restless, becoming more lightheaded, patient was getting quite tachycardic, and hypertensive. Has been receiving Ativan and Librium overnight, rapid response team responded to the patient this morning and she received additional 8 mg of Ativan, 50 mg of Benadryl and 5 mg of Haldol. Continued to be agitated and requiring 4 point restraints. At this point patient was intubated, placed on propofol drip and Versed drip, transferred to the ICU, and I saw her on consultation upon arrival. Patient required lines placement including a right femoral triple-lumen catheter and right radial arterial line which was done on emergency basis as the patient had very poor peripheral IV access. Patient was intubated and mechanically ventilated, she is on assist-control rate of 16 tidal volume 450 FiO2 50% and PEEP of 5 ABG showed a pO2 of 364 pCO2 of 39 pH of 7.29 she received 1 amp of bicarb. Patient was on propofol at 50 mcg/kg/min Versed at 3 mg/h IV fluid 0.9 at 75 cc/h and she is on the usual ICU protocol for GI and DVT prophylaxis she is also on ventilatory support, and will address nutritional support later today or tomorrow. CBC s howed WBC of 6.3 hemoglobin 12.4 electrolytes showed low potassium of 3.0 being addressed accordingly, labs were all reviewed, test was negative. Drug screen showed positive for benzodiazepines and positive for marijuana. Otherwise was negative. Patient was evaluated today on 06/27/2024, remains in the ICU, intubated and mechanically ventilated. Patient is on assist-control rate of 16 tidal volume 450 FiO2 40% PEEP of 5 ABG showed a pO2 of 114 pCO2 38 pH of 7.43. Patient remains on propofol at 50 mcg/kg/min she is also on Versed at 5 mg/h and earlier this morning the patient developed low urine output, and low blood pressure, she received multiple fluid boluses about 3 L, and she had to be placed on norepinephrine at 0.01 mcg/kg/min, I feel the hypotension is most likely related to excessive sedation, and her poor urine output is secondary to low blood pressure. Today I recommended that we cut down on her sedation and hopefully try to transition the patient to Precedex if possible. Apparently this was attempted but the patient woke up suddenly and vomited, and was noted to be restless and agitated has recommended that she goes back on Versed and propofol and the dose to be titrated. Patient has not had any seizure activity, she remains on GI and DVT prophylaxis, heparin subcu, remains on seizure precautions, labs today show WBC count of 4.9 hemoglobin 10.8, electrolytes were noted to be normal renal profile is normal creatinine 0.68 CPK elevated at 508 and this is very related to her recent seizure. Chest x-ray continues to show bibasilar atelectasis, doubt infiltrate. Although patient is set up for aspiration. The chest x-ray is not quite impressive to consider starting empiric antibiotics. Patient was seen today on 06/28/2024, patient remains in the ICU, intubated and mechanically ventilated, she is on assist-control rate of 16 tidal volume 400 F iO2 50% and PEEP of 5. Patient had an earlier blood gas on 40% FiO2 which showed a pO2 of 54 pCO2 29 pH of 7.50 and apparently the gas was done earlier shortly after she was witnessed to have an aspiration episode as she woke up and became agitated, she aspirated and developed right lower lobe atel ectasis/infiltrate and possibly a small right-sided pleural effusion hence her FiO2 was increased to 50%. Patient is on propofol at 50 mcg/kg/min, Versed and 13 mg/h norepinephrine at 0.02 mcg/kg/min vital HP at 40/45 and IV fluid 0.9 normal saline at 75 cc/h. WBC count is 7.6 hemoglobin is 11.2, basic metabolic profile is relatively normal however her bicarb is 15 potassium is 2.8, anion gap is 6, and her creatinine kinase is 496. Sputum cultures today are showing presumptive Staph aureus, patient was placed earlier today on Zosyn and now I will go ahead and add vancomycin. Patient was seen today on 06/29/2024, patient remains in the ICU, intubated and mechanically ventilated, continues to have intermittent episodes of seizure-like activities although the patient is maximized on propofol at 50 mcg/kg/min on Versed at 15 mg/h patient is requiring norepinephrine at 0.04 mcg/kg/min she is on 0.9 normal saline at 75 cc/h and vital HP at 45 cc/h. CT of the head showed some questionable ischemic injury being addressed by neurology, and recommending eventually MRI. Patient remains on Zosyn and vancomycin for aspiration pneumonia and positive sputum for MRSA. Remains on assist-control rate of 16 tidal volume 400 FiO2 50% and PEEP of 5 ABG showed a pO2 of 70 pCO2 30 pH of 7.42. Hence no changes were made in vent settings. Infectious disease was consulted for her positive Staph aureus in the sputum in the meantime we will continue with vancomycin and Zosyn. Patient clearly had aspiration pneumonia chest x-ray is consistent with aspiration pneumonia. At this point in time the patient is not ready for any weaning as she gets extremely restless and agitated and again she has these episodes of seizure-like activities, Poison control recommended phenobarbital. Patient will be given a dose of phenobarbital x 1. Labs today show WBC is 14.3 hemoglobin 11.2, basic metabolic profile is normal electrolytes are normal bicarb is a bit low at 19 renal profile is normal. CPK is coming down to 302. Patient was seen today on 06/30/2024, remains in the ICU, remains intubated and mechanically ventilated, she is on assist-control rate of 16 tidal volume 400 FiO2 60% and PEEP up to 10. ABG showed a pO2 of 96 pCO2 34 pH of 7.40 her PEEP was at 5 prior to this blood gas, and I increased the PEEP up to 10. Patient remains on Versed at 15 mg/h patient is also on propofol at 75 mg/kg/min norepinephrine is presently on hold patient is receiving fluid at 75 cc/h she is also on vital 20/20 patient is now on Unasyn, and her vancomycin was discontinued because the sputum was positive for MSSA and not MRSA. Urine output is adequate about 50 to 60 cc/h patient received 1 dose of phenobarbital yesterday for extreme agitation, and questionable seizures, neurology has the patient now on Depakote. Overall the patient is not making much improvement, her chest x-ray continues to show worsening of her aspiration pneumonia. And her FiO2 requirement remains relatively high, PEEP was increased today up to 10. Labs today showed WBC count of 12.1 hemoglobin 9.9. Platelets are 191. Basic metabolic profile is normal bicarb is 21 BUN is 6 creatinine 0.45 CPK is down to 248. Patient is now on Unasyn, heparin subcu, Ativan as needed, propofol and Versed, pantoprazole, she received 1 dose of phenobarbital, patient is also receiving valproic acid and Tigan. She is also receiving thiamine Seen today on 07/01/2024, patient remains about the same, remains critically ill, remains intubated mechanically ventilated, on assist-control rate of 16 tidal volume 400 FiO2 60% PEEP of 10 ABG remains marginal with a pO2 of 72 pCO2 34 pH of 7.40. Still requiring significant amount of sedation including Versed at 14 mg/h, norepinephrine at 0.02 presently on hold, she is on propofol at 75 mcg/kg/min. , IV fluids 0.9 normal saline at 75 cc/h. Chest x-ray continues to show significant bilateral airspace disease specially right lower lobe and left lower lobe consistent with aspiration pneumonia. Patient remains on antibiotics. WBC count today is 9.8 hemoglobin 9.9. Electrolytes showed low potassium of 3.3 being addressed accordingly, otherwise the patient has normal renal functioning. Remains on nutritional support/enteral feeding. Patient was seen today on 07/02/2024, remains in the ICU, intubated and mechanically ventilated, sedated, and paralyzed. Yesterday the patient continued to have significant agitation and spite of significant sedation including high-dose propofol, and high-dose Versed, she Desaturating frequently, and FiO2 was increased up to 70%, PEEP was increased up to 12, hence I recommended Nimbex to be started, patient was bolused and placed on Nimbex drip. Remains on Nimbex drip at 1 mcg/kg/min, remains on IV fluid at 50 cc/h in the form of D5.9 she is on fentanyl at 0.5 mcg/kg/h Versed is down to 12 mg/h propofol at 50 mcg/kg/min, patient was also placed on Decadron yesterday for her extensive pneumonic process involving both lower lobes, this was felt to be aspiration pneumonia. Her sputum has been positive for MSSA. Patient remains on GI and DVT prophylaxis. Vent settings today on AC rate of 16 tidal volume of 400 was increased to 500 yesterday, FiO2 down to 50% PEEP is 12 her ABG showed a pO2 of 95 pCO2 54 pH of 7.25 and that is when her tidal volume was increased to 500. Patient remains on nutritional support/enteral feeding, today she is not requiring norepinephrine but she has been intermittently on norepinephrine. Urine output is good about 50 to 60 cc/h. Chest x-ray continues show bilateral extensive infiltrates involving right lower lobe and left lower lobe. Labs today WBC count is 10.1 hemoglobin is 10.3 repeat ABG after vent setting changes showed a pO2 of 74 pCO2 42 pH of 7.37 and this is on 50% FiO2. 07/03/2024: This is a 28-year-old female with history of borderline personality disorder admitted to ICU on 06/26 and was subsequently intubated due to acute respiratory failure secondary to Wellbutrin overdose. According to the chart patient may have taken about 30-90 tablets. Patiente was intubtated on 06/26 due to extreme agitation and restlessness. Patient was seen today on 07/02/2024, she remains in ICU mechanically ventilated, sedated, and paralyzed. She is on assist-control at a rate of 16, tidal volume of 500, FiO2 at 70%, PEEP of 12. ABG this morning showing pH of 7.4, pCO2 44, pO2 69. Currently on Nimbex 1.5 mcg/mg/min, propofol 50 mcg/kg/min, fentanyl 0.5mcg/kg/hr, Versed 11 mg/hr, and propofol 50 mcg/kg/min. Intermittently has been on norepinephrine, but is currently not requiring it at this moment. Last weaning trial was on 06/29. Tube nutritional support/enteral feeding vital HP at goal. No overnight events. Chest x-ray showing patchy basilar infiltrates, no change from prior. Remains on Unasyn at 200 MLS/HR IVPB every 6 hours due to aspiration pneumonia. Remains on Decadron 6 mg IVP every 6 hours. Labs: WBC 8.5, Hgb 9.9 1, HCT 33.2, platelet 248, sodium 143, potassium 3.9, BUN 11, creatinine 0.14, glucose 137. Objective - Vital Signs Vital signs: Vital Signs Temp 97.9 F 07/03/24 06:30 Pulse 65 07/03/24 07:00 Resp 16 07/03/24 07:00 BP 116/95 07/03/24 06:45 Pulse Ox 97 07/03/24 07:00 FiO2 70 07/03/24 07:00 Intake & Output 07/02/24 07/03/24 07/03/24 18:59 06:59 18:59 Intake Total 7839.551 2088.040 324.686 Output Total 610 570 30 Balance 1251.746 926.040 294.686 Weight 134.1 kg Intake: IV 826 786 63 0.9 @ KVO 240 150 10 Dextrose 5%-0.9% NaCl 1, 550 600 50 000 ml @ 50 mls/hr IV . Q20H [facility] Rx#:[id number] a-line 3ml 36 36 3 Intake, IV Titration 755.746 380.040 241.686 Amount Cisatracurium 200 mg In 161.515 34.776 165.224 Sodium Chloride 0.9% 180 ml @ 1 MCG/KG/MIN 7.728 mls/hr IV .Q24H [facility] Rx#: [id number] Dextrose 5%-0.9% NaCl 1, 50 000 ml @ 50 mls/hr IV . Q20H [facility] Rx#:[id number] Midazolam HCl 50 mg In 149.317 90.017 45.283 Sodium Chloride 0.9% 40 ml @ 1 MG/HR 1 mls/hr IV .Q24H [facility] Rx#:[id number] Norepinephrine 4 mg In 28.087 Sodium Chloride 0.9% 250 ml @ 0.03 MCG/KG/MIN 12. 996 mls/hr IV .[id number] [facility] Rx#:[id number] propofoL 1,000 mg In 366.827 255.247 31.179 Empty Bag 1 bag @ 15 MCG/ KG/MIN 9.846 mls/hr IV . [id number] [facility] Rx#:[id number] Tube Feeding 220 240 20 Other 60 90 Output: Urine 610 570 30 Other: Voiding Method Indwelling Catheter Indwelling Catheter ABP, PAP, CO, CI - Last Documented Arterial Blood Pressure 110/64 - Exam Gen: intubated mechanically ventilated, sedated, also on Nimbex, obese Head: Atraumatic normocephalic HEENT: PERRLA, EOMI, nonicteric no neck masses no JVD CVS: Distant S1-S2, no S3 gallop Respiratory: Crackles at the bases, no rhonchi no wheezes GI: soft nontender no rebound no guarding, positive bowel sounds. : no suprapubic tenderness, no CVA tenderness MSK/Derm: No rashes. Skin is dry. And warm Neuro: Could not assess patient is sedated Psych: Could not assess. - Labs CBC & Chem 7: 07/03/24 04:20 07/03/24 04:20 Labs: Abnormal Lab Results - Last 24 Hours (Table) 07/02/24 07/02/24 07/02/24 Range/Units 09:20 16:15 18:59 RBC (3.80-5.40) m/uL Hgb (11.4-16.0) gm/dL Hct (34.0-46.0) % MCV (80.0-100.0) fL MCHC (31.0-37.0) g/dL D-Dimer 1.56 H (<0.60) mg/L FEU ABG pO2 74 L (83-108) mmHg ABG HCO3 (21-25) mmol/L ABG Total CO2 26 H (19-24) mmol/L ABG O2 Saturation (94-97) % Hemoglobin 9.7 L (11.4-16.0) gm/dL Chloride (98-107) mmol/L Creatinine (0.52-1.04) mg/dL Glucose (74-99) mg/dL POC Glucose (mg/dL) 120 H (70-110) mg/dL Calcium (8.4-10.2) mg/dL 07/03/24 07/03/24 07/03/24 Range/Units 04:20 04:20 04:59 RBC 3.31 L (3.80-5.40) m/uL Hgb 9.9 L (11.4-16.0) gm/dL Hct 33.2 L (34.0-46.0) % MCV 100.3 H (80.0-100.0) fL MCHC 29.7 L (31.0-37.0) g/dL D-Dimer (<0.60) mg/L FEU ABG pO2 69 L (83-108) mmHg ABG HCO3 27 H (21-25) mmol/L ABG Total CO2 28 H (19-24) mmol/L ABG O2 Saturation 93.2 L (94-97) % Hemoglobin 9.9 L (11.4-16.0) gm/dL Chloride 112 H (98-107) mmol/L Creatinine 0.42 L (0.52-1.04) mg/dL Glucose 137 H (74-99) mg/dL POC Glucose (mg/dL) (70-110) mg/dL Calcium 8.0 L (8.4-10.2) mg/dL Assessment and Plan Assessment: Acute respiratory failure, secondary to Wellbutrin overdose which required significant amount of sedation and patient developed respiratory failure requiring intubation and mechanical ventilation and needed to be intubated for protection of her airways as the patient received significant amount of sedation to control her agitation from Wellbutrin overdose. Again patient was intubated to protect her airways. Acute hypoxic respiratory failure secondary to pneumonia which has developed post intubation, on Unasyn Wellbutrin overdose Borderline personality disorder Suicidal attempt Aspiration pneumonia Sepsis secondary to aspiration pneumonia Electrolytes imbalance History of generalized anxiety disorder MSSA pneumonia Plan: Continue ventilatory support, not ready for weaning, patient is still requiring significant amount of sedation and paralysis to adequately ventilate maintain adequate O2 saturation Continue antibiotics /Unasyn mostly for aspiration pneumonia Continue Depakote Continue GI and DVT prophylaxis Continue propofol and Versed, fentanyl and Versed, however now that we have Nimbex, we could cut down significantly on the Versed and on the propofol. Continue seizure precautions, and continue seizure meds as per neurology on the case. Prognosis is guarded. Patient remains critically ill Patient does not qualify for any weaning trials today. I spoke to patient's mother regarding tracheostomy and PEG tube placement. Patient mother understands and is agreeable.
--- NOTE | 2024-07-03 14:55 | P.GSCN ---
History of Present Illness Consult date: 07/03/24 History of present illness: CHIEF COMPLAINT: Wellbutrin overdose HISTORY OF PRESENT ILLNESS: This is a 28-year-old female who presented to the hospital after a Wellbutrin overdose. Patient was given charcoal and initially went to 3 W. However patient was given charcoal and initially went to 3 W. However, ATEAM was called due to her severe agitation and she was brought into the ICU and sedated. Patient required to be intubated on June 26 to protect her airway. She also developed aspiration pneumonia. And remains on the vent due to respiratory failure. She is on a PEEP of 12. They have been unable to wean patient from the vent. Surgical service has been consulted for tracheostomy and PEG tube placement. PAST MEDICAL HISTORY: GERD, depression PAST SURGICAL HISTORY: See below MEDICATIONS: See below ALLERGIES: See below SOCIAL HISTORY: No illicit drug use. Marijuana REVIEW OF SYSTEMS: Unable to obtain. Patient intubated and sedated. PHYSICAL EXAM: VITAL SIGNS: Reviewed GENERAL: Well-developed in no acute distress. ABDOMEN: Soft. Obese. Nondistended. NEUROLOGIC: Intubated and sedated LABORATORY DATA: WBC 8.4 Hgb 9.9 platelets 248 Sodium 143 potassium 3.9 creatinine 0.42 Albumin 2.9 IMAGING: ASSESSMENT: 1. Acute respiratory failure s/p intubation to protect airway after significant sedation for Wellbutrin overdose and aspiration pneumonia 2. Severe protein calorie malnutrition 3. Suicide attempt with Wellbutrin overdose PLAN: -Patient scheduled for tracheostomy and PEG tube placement on July [address] Quinteros Physician [place] note has been reviewed by physician. Signing provider agrees with the documented findings, assessment, and plan of care. CHIEF COMPLAINT: HISTORY OF PRESENT ILLNESS: The patient is a 71 year old male who comes in with new diarrhea and blood in stools. He had recent colonoscopy in October 2018 with findings of diverticulosis. He is on Eliquis. Since admission he has been off Eliquis. PAST MEDICAL HISTORY: See list and reviewed PAST SURGICAL HISTORY: See list and reviewed MEDICATIONS: See list and reviewed ALLERGIES: See list and reviewed SOCIAL HISTORY: See list and reviewed FAMILY HISTORY: See list and reviewed REVIEW OF ORGAN SYSTEMS: CONSTITUTIONAL: No fevers or chills. No recent weight loss. EYES: Denies any trouble with vision. No glasses. HEENT: No difficulties with hearing. No nosebleeds. No difficulty swallowing. RESPIRATORY: Denies pneumonia. Denies any troubles with breathing or dyspnea on exertion. CARDIOVASCULAR: Denies any chest pain, palpitations, or recent heart attacks. GASTROINTESTINAL: Denies fatty food intolerance. Denies change in bowel habits and gas bloat. GENITOURINARY: Denies any blood in urine or increased urinary frequency. NEUROLOGICAL: Denies any numbness or tingling along the distal extremities. No seizure disorders or headaches. MUSCULOSKELETAL: Denies any back pain, stiffness or joint arthritis. SKIN: No current skin cancer. No rash. PSYCHIATRIC: Denies current depression or suicidal thoughts. ENDOCRINE: Denies current thyroid disorders. Denies any blood sugar glucose intolerance. HEME/LYMPHATIC: Denies any lumps and bumps around the neck. No recent deep venous thrombosis. ALLERGY/IMMUNOLOGY: No immunoglobulin therapy. No immune deficiencies. BREAST: Denies current breast lumps, pain or nipple discharge. PHYSICAL EXAM: VITALS: Reviewed CONSTITUTIONAL: Well developed and in no acute distress. EYES: Conjuctivae without sclera icterus. Extraocular movements grossly intact. HEAD, EARS, NOSE, THROAT: Moist buccal mucosa. Head is atraumatic, normocephal ic. Hears conversational speech. No nasal drainage. NECK: Supple. No JV distention. No thyroidomegaly. RESPIRATORY: Non-labored respirations and equal bilateral excursions. No gross wheezes. CARDIOVASCULAR: Palpable 2+ radial pulses. ABDOMEN: LYMPH: No neck lymphadenopathy. MUSCULOSKELETAL: No clubbing cyanosis or edema SKIN: Warm and well perfused with good skin turgor. NEUROLOGIC: Cranial nerves II through XII grossly intact. No focal or lateralizing signs. PSYCH: Appropriate affect. Alert and oriented to person, place and time. Displays appropriate insight. CLINCAL LABS: Reviewed IMAGING: Independently reviewed. RADIOLOGY: Report reviewed RECORDS: previous old records reviewed ASSESSMENT: 1. Abdominal pain PLAN: 1. IV fluid hydration. ADVANCE DIRECTIVE: Thank you for this kind consultation. Dictation was produced using Recommend dictation software. Please excuse any grammatical, word or spelling errors. Past Medical History Past Medical History: No Reported History, GERD/Reflux Additional Past Medical History / Comment(s): Does not take any meds for reflux at this time. History of Any Multi-Drug Resistant Organisms: None Reported Past Surgical History: No Surgical Hx Reported Past Anesthesia/Blood Transfusion Reactions: No Reported Reaction Past Psychological History: Depression Smoking Status: Never smoker Past Alcohol Use History: None Reported Past Drug Use History: Marijuana - Past Family History Mother Family Medical History: Hypertension Additional Family Medical History / Comment(s): Bipolar, depression, and bleedi ng ulcers. Father Family Medical History: Cancer Additional Family Medical History / Comment(s): of pancreatic cancer. Medications and Allergies Home Medications Medication Instructions Recorded Confirmed Type Desvenlafaxine [Pristiq ER] 100 mg PO DAILY 06/25/24 06/25/24 History Famotidine [Pepcid] 20 mg PO BID 06/25/24 06/25/24 History Propranolol HCl 10 mg PO DAILY PRN 06/25/24 06/25/24 History buPROPion XL [Wellbutrin XL] 150 mg PO DAILY 06/25/24 06/25/24 History lamoTRIgine 200 mg PO DAILY 06/25/24 06/25/24 History Allergies Allergy/AdvReac Type Severity Reaction Status Date / Time adhesive Allergy Rash/Hives Verified 06/25/24 14:54 Surgical - Exam Vital Signs Temp Pulse Resp BP Pulse Ox 98.3 F 83 18 148/96 99 06/25/24 14:35 06/25/24 14:35 06/25/24 14:35 06/25/24 14:35 06/25/24 14:35 Results - Labs 07/15/24 08:35 07/15/24 08:35 Abnormal Lab Results - Last 24 Hours (Table) 07/02/24 07/02/24 07/03/24 Range/Units 16:15 18:59 04:20 RBC 3.31 L (3.80-5.40) m/uL Hgb 9.9 L (11.4-16.0) gm/dL Hct 33.2 L (34.0-46.0) % MCV 100.3 H (80.0-100.0) fL MCHC 29.7 L (31.0-37.0) g/dL D-Dimer 1.56 H (<0.60) mg/L FEU ABG pO2 (83-108) mmHg ABG HCO3 (21-25) mmol/L ABG Total CO2 (19-24) mmol/L ABG O2 Saturation (94-97) % Hemoglobin (11.4-16.0) gm/dL Chloride (98-107) mmol/L Creatinine (0.52-1.04) mg/dL Glucose (74-99) mg/dL POC Glucose (mg/dL) 120 H (70-110) mg/dL Calcium (8.4-10.2) mg/dL 07/03/24 07/03/24 Range/Units 04:20 04:59 RBC (3.80-5.40) m/uL Hgb (11.4-16.0) gm/dL Hct (34.0-46.0) % MCV (80.0-100.0) fL MCHC (31.0-37.0) g/dL D-Dimer (<0.60) mg/L FEU ABG pO2 69 L (83-108) mmHg ABG HCO3 27 H (21-25) mmol/L ABG Total CO2 28 H (19-24) mmol/L ABG O2 Saturation 93.2 L (94-97) % Hemoglobin 9.9 L (11.4-16.0) gm/dL Chloride 112 H (98-107) mmol/L Creatinine 0.42 L (0.52-1.04) mg/dL Glucose 137 H (74-99) mg/dL POC Glucose (mg/dL) (70-110) mg/dL Calcium 8.0 L (8.4-10.2) mg/dL Diabetes panel 07/03/24 Range/Units 04:20 Sodium 143 (137-145) mmol/L Potassium 3.9 (3.5-5.1) mmol/L Chloride 112 H (98-107) mmol/L Carbon Dioxide 25 (22-30) mmol/L BUN 11 (7-17) mg/dL Creatinine 0.42 L (0.52-1.04) mg/dL Glucose 137 H (74-99) mg/dL Calcium 8.0 L (8.4-10.2) mg/dL Calcium panel 07/03/24 Range/Units 04:20 Calcium 8.0 L (8.4-10.2) mg/dL Pituitary panel 07/03/24 Range/Units 04:20 Sodium 143 (137-145) mmol/L Potassium 3.9 (3.5-5.1) mmol/L Chloride 112 H (98-107) mmol/L Carbon Dioxide 25 (22-30) mmol/L BUN 11 (7-17) mg/dL Creatinine 0.42 L (0.52-1.04) mg/dL Glucose 137 H (74-99) mg/dL Calcium 8.0 L (8.4-10.2) mg/dL Adrenal panel 07/03/24 Range/Units 04:20 Sodium 143 (137-145) mmol/L Potassium 3.9 (3.5-5.1) mmol/L Chloride 112 H (98-107) mmol/L Carbon Dioxide 25 (22-30) mmol/L BUN 11 (7-17) mg/dL Creatinine 0.42 L (0.52-1.04) mg/dL Glucose 137 H (74-99) mg/dL Calcium 8.0 L (8.4-10.2) mg/dL
--- NOTE | 2024-07-03 21:37 | P.PN ---
Subjective Progress Note Date: 07/03/24 Principal diagnosis: Reason for follow-up is MSSA/aspiration pneumonia Patient is a 28-year-old female with a past medical history of dependent for reflux, anxiety and depression presenting to the hospital after the patient overdosed on 50-90 Wellbutrin tablets subsequent did have a agitation respiratory distress requiring revision admission to the ICU ID consulted because of concern for aspiration pneumonia. On today's evaluation that is 07/03/2024, patient is afebrile today the patient remains to be intubated on the vent FiO2 is currently at 70% no significant purulent secretion through the ET diarrhea and the changes reported by nursing staff. Patient white count is 8.4 creatinine is 0.42 blood culture remains to be negative Objective - Vital Signs Vital signs: Vital Signs Temp 98.3 F 07/03/24 12:00 Pulse 79 07/03/24 12:00 Resp 16 07/03/24 12:00 BP 112/68 07/03/24 12:00 Pulse Ox 97 07/03/24 11:30 FiO2 70 07/03/24 12:00 Intake & Output 07/02/24 07/03/24 07/03/24 18:59 06:59 18:59 Intake Total 7844.581 9993.040 1026.520 Output Total 610 570 134 Balance 1251.746 926.040 892.520 Weight 134.1 kg Intake: IV 826 786 478 0.9 @ KVO 240 150 60 Ampicillin-Sulbactam 3 gm 100 In Sodium Chloride 0.9% 100 ml @ 200 mls/hr IVPB Q6HR [facility] Rx#:[id number] Dextrose 5%-0.9% NaCl 1, 550 600 300 000 ml @ 50 mls/hr IV . Q20H [facility] Rx#:[id number] a-line 3ml 36 36 18 Intake, IV Titration 755.746 380.040 378.520 Amount Cisatracurium 200 mg In 161.515 34.776 165.224 Sodium Chloride 0.9% 180 ml @ 1 MCG/KG/MIN 7.728 mls/hr IV .Q24H [facility] Rx#: [id number] Dextrose 5%-0.9% NaCl 1, 50 000 ml @ 50 mls/hr IV . Q20H [facility] Rx#:[id number] Midazolam HCl 50 mg In 149.317 90.017 94.050 Sodium Chloride 0.9% 40 ml @ 1 MG/HR 1 mls/hr IV .Q24H [facility] Rx#:[id number] Norepinephrine 4 mg In 28.087 Sodium Chloride 0.9% 250 ml @ 0.03 MCG/KG/MIN 12. 996 mls/hr IV .[id number] [facility] Rx#:[id number] propofoL 1,000 mg In 366.827 255.247 119.246 Empty Bag 1 bag @ 15 MCG/ KG/MIN 9.846 mls/hr IV . [id number] [facility] Rx#:[id number] Oral 50 Tube Feeding 220 240 120 Other 60 90 Output: Urine 610 570 134 Other: Voiding Method Indwelling Catheter Indwelling Catheter Indwelling Catheter ABP, PAP, CO, CI - Last Documented Arterial Blood Pressure 121/65 - Exam GENERAL DESCRIPTION: Middle-age female intubated on the vent RESPIRATORY SYSTEM: Unlabored breathing , decreased breath sounds at bases HEART: S1 S2 regular rate and rhythm , ABDOMEN: Soft , no tenderness EXTREMITIES: No edema feet - Labs CBC & Chem 7: 07/03/24 04:20 07/03/24 04:20 Labs: Abnormal Lab Results - Last 24 Hours (Table) 07/02/24 07/02/24 07/03/24 Range/Units 16:15 18:59 04:20 RBC 3.31 L (3.80-5.40) m/uL Hgb 9.9 L (11.4-16.0) gm/dL Hct 33.2 L (34.0-46.0) % MCV 100.3 H (80.0-100.0) fL MCHC 29.7 L (31.0-37.0) g/dL D-Dimer 1.56 H (<0.60) mg/L FEU ABG pO2 (83-108) mmHg ABG HCO3 (21-25) mmol/L ABG Total CO2 (19-24) mmol/L ABG O2 Saturation (94-97) % Hemoglobin (11.4-16.0) gm/dL Chloride (98-107) mmol/L Creatinine (0.52-1.04) mg/dL Glucose (74-99) mg/dL POC Glucose (mg/dL) 120 H (70-110) mg/dL Calcium (8.4-10.2) mg/dL 07/03/24 07/03/24 Range/Units 04:20 04:59 RBC (3.80-5.40) m/uL Hgb (11.4-16.0) gm/dL Hct (34.0-46.0) % MCV (80.0-100.0) fL MCHC (31.0-37.0) g/dL D-Dimer (<0.60) mg/L FEU ABG pO2 69 L (83-108) mmHg ABG HCO3 27 H (21-25) mmol/L ABG Total CO2 28 H (19-24) mmol/L ABG O2 Saturation 93.2 L (94-97) % Hemoglobin 9.9 L (11.4-16.0) gm/dL Chloride 112 H (98-107) mmol/L Creatinine 0.42 L (0.52-1.04) mg/dL Glucose 137 H (74-99) mg/dL POC Glucose (mg/dL) (70-110) mg/dL Calcium 8.0 L (8.4-10.2) mg/dL Assessment and Plan (1) Sepsis Current Visit: Yes Status: Acute Code(s): A41.9 - SEPSIS, UNSPECIFIED ORGANISM SNOMED Code(s): 44713045 (2) Pneumonia Current Visit: Yes Status: Acute Code(s): J18.9 - PNEUMONIA, UNSPECIFIED ORGANISM SNOMED Code(s): 831682849 (3) MSSA (methicillin susceptible Staphylococcus aureus) infection Current Visit: Yes Status: Acute Code(s): A49.01 - METHICILLIN SUSCEP STAPH INFECTION, UNSP SITE SNOMED Code(s): 463387849 Plan: 1patient presenting the hospital with drug overdose with subsequent agitation respiratory distress requiring intubation concerning for possible aspiration pneumonia sputum is now growing MSSA in this patient who did have features of sepsis with fever elevated white count and hypotension requiring low-dose pressor support on initial evaluation. 2-patient did have resolution of her fever the patient white count normalized blood culture have been negative so far, sputum is growing MSSA 3patient to continue with Unasyn and monitor clinical course closely Dictation was produced using [employer] dictation software. please excuse any grammatical, word or spelling errors.
[2024-07-03 23:52] LABS: Glucose,Whole Blood 108 mg/dL (70-110)
[2024-07-04 05:00] LABS: Basophils % (A) 0 %; Eosinophils % (A) 0 %; HCT 31.5 % (34.0-46.0); HGB 9.5 gm/dL (11.4-16.0); Hypochromasia Marked; Lymphocytes # (A) 1.1 k/uL (1.0-4.8); Lymphocytes % (A) 15 %; MCH 30.1 pg (25.0-35.0); MCHC 30.2 g/dL (31.0-37.0); MCV 99.9 fL (80.0-100.0); Mean Platelet Volume 8.1; Monocytes # (A) 0.4 k/uL (0-1.0); Monocytes % (A) 5 %; Neutrophils # (A) 5.7 k/uL (1.3-7.7); Neutrophils % (A) 78 %; Platelet Count 266 k/uL (150-450); RBC 3.15 m/uL (3.80-5.40); RDW 13.6 % (11.5-15.5); WBC 7.3 k/uL (3.8-10.6)
[2024-07-04 05:13] LABS: African American GFR (CKD) >90 (>60 ml/min/1.73 sqM); Anion Gap 5 mmol/L; Blood Urea Nitrogen 14 mg/dL (7-17); Calcium 7.8 mg/dL (8.4-10.2); Carbon Dioxide 26 mmol/L (22-30); Chloride 109 mmol/L (98-107); Glucose 104 mg/dL (74-99); Magnesium 2.2 mg/dL (1.6-2.3); Non-African American GFR(CKD) >90 (>60 ml/min/1.73 sqM); Potassium 4.1 mmol/L (3.5-5.1); Sodium 140 mmol/L (137-145)
[2024-07-04 05:14] LABS: ABG Base Excess 2.3 mmol/L; ABG HCO3 27 mmol/L (21-25); ABG Oxygen Saturation 94.7 % (94-97); ABG PCO2 41 mmHg (35-45); ABG PH 7.43 (7.35-7.45); ABG PO2 73 mmHg (83-108); ABG TCO2 28 mmol/L (19-24)
[2024-07-04 05:35] LABS: Allen Test Performed? No
[2024-07-04 05:46] LABS: Glucose,Whole Blood 96 mg/dL (70-110)
--- NOTE | 2024-07-04 07:10 | XR ---
EXAMINATION TYPE: XR chest 1V portable DATE OF EXAM: 07/04/2024 5:35 AM COMPARISON: Chest radiographs from 07/03/2024. CLINICAL INDICATION: Female, 28 years old with history of vent; TECHNIQUE: XR chest 1V portable Frontal view of the chest. FINDINGS: Lungs/Pleura: Similar and bibasilar airspace opacities. No evidence of pneumothorax or pleural effusi on. Pulmonary vascularity: Unremarkable. Heart/mediastinum: Cardiomediastinal silhouette is unremarkable. Musculoskeletal: No acute osseous pathology. Other findings: None Lines/Tubes: Endotracheal tube with distal tip 3.3 cm above the donnie. Nasogastric tube with its distal tip and side-port projecting under the diaphragm. IMPRESSION: Bibasilar airspace opacities. [facility], , 07/04/2024 7:08 AM
[2024-07-04] MEDS: LACTULOSE 20 GM/30 ML CUP PO PRN (08:23)
[2024-07-04] MEDS: SENNOSIDES 8.6 MG TAB PO PRN (08:23)
[2024-07-04 09:38] LABS: Glucose,Whole Blood 80 mg/dL (70-110)
--- NOTE | 2024-07-04 10:42 | P.PN ---
Subjective Progress Note Date: 07/04/24 SURGICAL PROGRESS NOTE CHIEF COMPLAINT: Intentional overdose HISTORY OF PRESENT ILLNESS: Patient remains in the ICU intubated and sedated. PEEP of 12. She has tube feeds via OG tube. Afebrile. WBC 7.[address] Garcia is covering for Dr. Quinteros PHYSICAL EXAM: VITAL SIGNS: Reviewed. GENERAL: no acute distress. ABDOMEN: Soft. Obese nondistended. Nontender. NEUROLOGIC: Intubated and sedated. ASSESSMENT: 1. Acute respiratory failure s/p intubation to protect airway after patient rec eived significant sedation for agitation from Wellbutrin overdose and had an aspiration pneumonia 2. Severe protein calorie malnutrition 3. Suicide attempt with Wellbutrin overdose PLAN: -Patient scheduled for tracheostomy and PEG tube placement on July [address] Quinteros Physician Compliance Aide note has been reviewed by physician. Signing provider agrees with the documented findings, assessment, and plan of care. Additional documentation below per MD CHIEF COMPLAINT: Prolonged intubation HISTORY OF PRESENT ILLNESS: The patient is a 28 year old female being seen in the intensive care unit after failed extubations. She has prolonged intubation. Patient was admitted secondary to Wellbutrin overdose. Patient has developed aspiration pneumonia. As a result, patient is difficult to extubate. Secondary to prolonged intubation, tracheostomy and gastrostomy tube placement is being requested. Patient currently obtaining nutrition via tube feeds, orogastric tube. PAST MEDICAL HISTORY: See list and reviewed PAST SURGICAL HISTORY: See list and reviewed MEDICATIONS: See list and reviewed ALLERGIES: See list and reviewed SOCIAL HISTORY: See list and reviewed FAMILY HISTORY: See list and reviewed REVIEW OF ORGAN SYSTEMS: Obtained via records. CONSTITUTIONAL: Morbid obesity, BMI 41.6. CARDIOVASCULAR: Hypertensive heart disease GASTROINTESTINAL: Gastroesophageal reflux disease PSYCHIATRIC: Depressive disorder PHYSICAL EXAM: VITALS: Reviewed CONSTITUTIONAL: Well developed and in no acute distress. EYES: Conjuctivae without sclera icterus. Extraocular movements grossly intact. HEAD, EARS, NOSE, THROAT: Moist buccal mucosa. Head is atraumatic, n ormocephalic. Hears conversational speech. No nasal drainage. NECK: Supple. No JV distention. No thyroidomegaly. RESPIRATORY: Non-labored respirations and equal bilateral excursions. Full mechanical ventilation. CARDIOVASCULAR: Palpable 2+ radial pulses. ABDOMEN: Obese, nontender. LYMPH: No neck lymphadenopathy. MUSCULOSKELETAL: No clubbing cyanosis or edema SKIN: Warm and well perfused with good skin turgor. NEUROLOGIC: Cranial nerves II through XII grossly intact. No focal or laterali zing signs. PSYCH: Sedated. CLINCAL LABS: Reviewed. WBC normal. ASSESSMENT: 1. Wellbutrin overdose with prolonged intubation 2. Aspiration pneumonia 3. Depressive disorder PLAN: 1. Tracheostomy gastrostomy tube placement pending at this time. 2. Patient is elevated risk due to pre-existing aspiration pneumonia Dictation was produced using [employer] dictation software. Please excuse any grammatical, word or spelling errors. Objective - Vital Signs Vital signs: Vital Signs Temp 97.8 F 07/04/24 04:00 Pulse 65 07/04/24 07:00 Resp 16 07/04/24 07:00 BP 101/64 07/04/24 07:00 Pulse Ox 96 07/04/24 07:00 FiO2 60 07/04/24 08:59 Intake & Output 07/03/24 07/04/24 07/04/24 18:59 06:59 18:59 Intake Total 0038.127 0277.338 155.9 Output Total 509 610 50 Balance 5328.670 7286.338 105.9 Weight 134.1 kg 138.4 kg Intake: IV 856 946 93 0.9 @ KVO 120 110 10 Ampicillin-Sulbactam 3 gm 100 200 In Sodium Chloride 0.9% 100 ml @ 200 mls/hr IVPB Q6HR [facility] Rx#:[id number] Dextrose 5%-0.9% NaCl 1, 600 600 50 000 ml @ 50 mls/hr IV . Q20H [facility] Rx#:[id number] Invasive Line 3 30 a-line 3ml 36 36 3 Intake, IV Titration 618.120 557.338 42.9 Amount Cisatracurium 200 mg In 165.224 162.997 Sodium Chloride 0.9% 180 ml @ 1 MCG/KG/MIN 7.728 mls/hr IV .Q24H [facility] Rx#: [id number] Midazolam HCl 50 mg In 133.650 143.916 42.9 Sodium Chloride 0.9% 40 ml @ 1 MG/HR 1 mls/hr IV .Q24H [facility] Rx#:[id number] propofoL 1,000 mg In 319.246 250.425 Empty Bag 1 bag @ 15 MCG/ KG/MIN 9.846 mls/hr IV . [id number] [facility] Rx#:[id number] Oral 50 Tube Feeding 240 240 20 Other 90 Output: Urine 509 610 50 Other: Voiding Method Indwelling Catheter Indwelling Catheter ABP, PAP, CO, CI - Last Documented Arterial Blood Pressure 108/65 - Labs CBC & Chem 7: 07/15/24 08:35 07/15/24 08:35 Labs: Abnormal Lab Results - Last 24 Hours (Table) 07/04/24 07/04/24 07/04/24 Range/Units 04:18 04:18 05:10 RBC 3.15 L (3.80-5.40) m/uL Hgb 9.5 L (11.4-16.0) gm/dL Hct 31.5 L (34.0-46.0) % MCHC 30.2 L (31.0-37.0) g/dL ABG pO2 73 L (83-108) mmHg ABG HCO3 27 H (21-25) mmol/L ABG Total CO2 28 H (19-24) mmol/L Hemoglobin 9.6 L (11.4-16.0) gm/dL Chloride 109 H (98-107) mmol/L Creatinine 0.42 L (0.52-1.04) mg/dL Glucose 104 H (74-99) mg/dL Calcium 7.8 L (8.4-10.2) mg/dL Microbiology - Last 24 Hours (Table) 06/28/24 14:46 Blood Culture - Final Blood 06/28/24 14:31 Blood Culture - Final Blood
--- NOTE | 2024-07-04 10:58 | P.PN ---
Subjective Progress Note Date: 07/04/24 This is a 28-year-old female with history of borderline personality disorder, presented yesterday to the ER with intentional suicidal attempt by taking multiple Wellbutrin tablets. According to the chart patient may have taken about 30 tablets. Patient stated to the ER physician that she does not want to live like this anymore, and she took many tablets of Wellbutrin. This was obviously a suicidal attempt. Patient received activated charcoal, patient was admitted to the medical floor, however this morning patient was becoming more and more agitated and restless, becoming more lightheaded, patient was getting quite tachycardic, and hypertensive. Has been receiving Ativan and Librium overnight, rapid response team responded to the patient this morning and she received additional 8 mg of Ativan, 50 mg of Benadryl and 5 mg of Haldol. Continued to be agitated and requiring 4 point restraints. At this point patient was intubated, placed on propofol drip and Versed drip, transferred to the ICU, and I saw her on consultation upon arrival. Patient required lines placement including a right femoral triple-lumen catheter and right radial arterial line which was done on emergency basis as the patient had very poor peripheral IV access. Patient was intubated and mechanically ventilated, she is on assist-control rate of 16 tidal volume 450 FiO2 50% and PEEP of 5 ABG showed a pO2 of 364 pCO2 of 39 pH of 7.29 she received 1 amp of bicarb. Patient was on propofol at 50 mcg/kg/min Versed at 3 mg/h IV fluid 0.9 at 75 cc/h and she is on the usual ICU protocol for GI and DVT prophylaxis she is also on ventilatory support, and will address nutritional support later today or tomorrow. CBC showed WBC of 6.3 hemoglobin 12.4 electrolytes showed low potassium of 3.0 being addressed accordingly, labs were all reviewed, test was negative. Drug screen showed positive for benzodiazepines and positive for marijuana. Otherwise was negative. Patient was evaluated today on 06/27/2024, remains in the ICU, intubated and mechanically ventilated. Patient is on assist-control rate of 16 tidal volume 450 FiO2 40% PEEP of 5 ABG showed a pO2 of 114 pCO2 38 pH of 7.43. Patient remains on propofol at 50 mcg/kg/min she is also on Versed at 5 mg/h and earlier this morning the patient developed low urine output, and low blood pressure, she received multiple fluid boluses about 3 L, and she had to be placed on norepinephrine at 0.01 mcg/kg/min, I feel the hypotension is most likely related to excessive sedation, and her poor urine output is secondary to low blood pressure. Today I recommended that we cut down on her sedation and hopefully try to transition the patient to Precedex if possible. Apparently this was attempted but the patient woke up suddenly and vomited, and was noted to be restless and agitated has recommended that she goes back on Versed and propofol and the dose to be titrated. Patient has not had any seizure activity, she remains on GI and DVT prophylaxis, heparin subcu, remains on seizure precautions, labs today show WBC count of 4.9 hemoglobin 10.8, electrolytes were noted to be normal renal profile is normal creatinine 0.68 CPK elevated at 508 and this is very related to her recent seizure. Chest x-ray continues to show bibasilar atelectasis, doubt infiltrate. Although patient is set up for aspiration. The chest x-ray is not quite impressive to consider starting empiric antibiotics. Patient was seen today on 06/28/2024, patient remains in the ICU, intubated and mechanically ventilated, she is on assist-control rate of 16 tidal volume 400 FiO2 50% and PEEP of 5. Patient had an earlier blood gas on 40% FiO2 which showed a pO2 of 54 pCO2 29 pH of 7.50 and apparently the gas was done earlier shortly after she was witnessed to have an aspiration episode as she woke up and became agitated, she aspirated and developed right lower lobe ate lectasis/infiltrate and possibly a small right-sided pleural effusion hence her FiO2 was increased to 50%. Patient is on propofol at 50 mcg/kg/min, Versed and 13 mg/h norepinephrine at 0.02 mcg/kg/min vital HP at 40/45 and IV fluid 0.9 normal saline at 75 cc/h. WBC count is 7.6 hemoglobin is 11.2, basic metabolic profile is relatively normal however her bicarb is 15 potassium is 2.8, anion gap is 6, and her creatinine kinase is 496. Sputum cultures today are showing presumptive Staph aureus, patient was placed earlier today on Zosyn and now I will go ahead and add vancomycin. Patient was seen today on 06/29/2024, patient remains in the ICU, intubated and mechanically ventilated, continues to have intermittent episodes of seizure-like activities although the patient is maximized on propofol at 50 mcg/kg/min on Versed at 15 mg/h patient is requiring norepinephrine at 0.04 mcg/kg/min she is on 0.9 normal saline at 75 cc/h and vital HP at 45 cc/h. CT of the head showed some questionable ischemic injury being addressed by neurology, and recommending eventually MRI. Patient remains on Zosyn and vancomycin for aspiration pneumonia and positive sputum for MRSA. Remains on assist-control rate of 16 tidal volume 400 FiO2 50% and PEEP of 5 ABG showed a pO2 of 70 pCO2 30 pH of 7.42. Hence no changes were made in vent settings. Infectious disease was consulted for her positive Staph aureus in the sputum in the meantime we will continue with vancomycin and Zosyn. Patient clearly had aspiration pneumonia chest x-ray is consistent with aspiration pneumonia. At this point in time the patient is not ready for any weaning as she gets extremely restless and agitated and again she has these episodes of seizure-like activities, Poison control recommended phenobarbital. Patient will be given a dose of phenobarbital x 1. Labs today show WBC is 14.3 hemoglobin 11.2, basic metabolic profile is normal electrolytes are normal bicarb is a bit low at 19 renal profile is normal. CPK is coming down to 302. Patient was seen today on 06/30/2024, remains in the ICU, remains intubated and mechanically ventilated, she is on assist-control rate of 16 tidal volume 400 FiO2 60% and PEEP up to 10. ABG showed a pO2 of 96 pCO2 34 pH of 7.40 her PEEP was at 5 prior to this blood gas, and I increased the PEEP up to 10. Patient remains on Versed at 15 mg/h patient is also on propofol at 75 mg/kg/min norepinephrine is presently on hold patient is receiving fluid at 75 cc/h she is also on vital / patient is now on Unasyn, and her vancomycin was discontinued because the sputum was positive for MSSA and not MRSA. Urine output is adequate about 50 to 60 cc/h patient received 1 dose of phenobarbital yesterday for extreme agitation, and questionable seizures, neurology has the patient now on Depakote. Overall the patient is not making much improvement, her chest x-ray continues to show worsening of her aspiration pneumonia. And her FiO2 requirement remains relatively high, PEEP was increased today up to 10. Labs today showed WBC count of 12.1 hemoglobin 9.9. Platelets are 191. Basic metabolic profile is normal bicarb is 21 BUN is 6 creatinine 0.45 CPK is down to 248. Patient is now on Unasyn, heparin subcu, Ativan as needed, propofol and Versed, pantoprazole, she received 1 dose of phenobarbital, patient is also receiving valproic acid and Tigan. She is also receiving thiamine Seen today on 07/01/2024, patient remains about the same, remains critically ill, remains intubated mechanically ventilated, on assist-control rate of 16 tidal volume 400 FiO2 60% PEEP of 10 ABG remains marginal with a pO2 of 72 pCO2 34 pH of 7.40. Still requiring significant amount of sedation including Versed at 14 mg/h, norepinephrine at 0.02 presently on hold, she is on propofol at 75 mcg/kg/min. , IV fluids 0.9 normal saline at 75 cc/h. Chest x-ray continues to show significant bilateral airspace disease specially right lower lobe and left lower lobe consistent with aspiration pneumonia. Patient remains on antibiotics. WBC count today is 9.8 hemoglobin 9.9. Electrolytes showed low potassium of 3.3 being addressed accordingly, otherwise the patient has normal renal functioning. Remains on nutritional support/enteral feeding. Patient was seen today on 07/02/2024, remains in the ICU, intubated and mechanically ventilated, sedated, and paralyzed. Yesterday the patient continued to have significant agitation and spite of significant sedation including high-dose propofol, and high-dose Versed, she Desaturating frequently, and FiO2 was increased up to 70%, PEEP was increased up to 12, hence I recommended Nimbex to be started, patient was bolused and placed on Nimbex drip. Remains on Nimbex drip at 1 mcg/kg/min, remains on IV fluid at 50 cc/h in the form of D5.9 she is on fentanyl at 0.5 mcg/kg/h Versed is down to 12 mg/h propofol at 50 mcg/kg/min, patient was also placed on Decadron yesterday for her extensive pneumonic process involving both lower lobes, this was felt to be aspiration pneumonia. Her sputum has been positive for MSSA. Patient remains o n GI and DVT prophylaxis. Vent settings today on AC rate of 16 tidal volume of 400 was increased to 500 yesterday, FiO2 down to 50% PEEP is 12 her ABG showed a pO2 of 95 pCO2 54 pH of 7.25 and that is when her tidal volume was increased to 500. Patient remains on nutritional support/enteral feeding, today she is not requiring norepinephrine but she has been intermittently on norepinephrine. Uri ne output is good about 50 to 60 cc/h. Chest x-ray continues show bilateral extensive infiltrates involving right lower lobe and left lower lobe. Labs today WBC count is 10.1 hemoglobin is 10.3 repeat ABG after vent setting changes showed a pO2 of 74 pCO2 42 pH of 7.37 and this is on 50% FiO2. 07/03/2024: This is a 28-year-old female with history of borderline personality disorder admitted to ICU on 06/26 and was subsequently intubated due to acute respiratory failure secondary to Wellbutrin overdose. According to the chart patient may have taken about 30-90 tablets. Patiente was intubtated on 06/26 due to extreme agitation and restlessness. Patient was seen today on 07/02/2024, she remains in ICU mechanically ventilated, sedated, and paralyzed. She is on assist-control at a rate of 16, tidal volume of 500, FiO2 at 70%, PEEP of 12. ABG this morning showing pH of 7.4, pCO2 44, pO2 69. Currently on Nimbex 1.5 mcg/mg/min, propofol 50 mcg/kg/min, fentanyl 0.5mcg/kg/hr, Versed 11 mg/hr, and propofol 50 mcg/kg/min. Intermittently has been on norepinephrine, but is currently not requiring it at this moment. Last weaning trial was on 06/29. Tube nutritional support/enteral feeding vital HP at goal. No overnight events. Chest x-ray showing patchy basilar infiltrates, no change from prior. Remains on Unasyn at 200 MLS/HR IVPB every 6 hours due to aspiration pneumonia. Remains on Decadron 6 mg IVP every 6 hours. Labs: WBC 8.5, Hgb 9.9 1, HCT 33.2, platelet 248, sodium 143, potassium 3.9, BUN 11, creatinine 0.14, glucose 137. Patient seen today on 07/04/2024 in room 260. She remains sedated on mechanical ventilator. She is on volume assist-control, rate 16, tidal volume 500, FiO2 60%, PEEP of 12. Blood gases show pO2 of 73, pCO2 of 41, pH is 7.43. The patient is getting D5.9 at 50 cc an hour, fentanyl drip at 0.5 mcg/kg/h, Versed at 11 mg an hour, propofol at 50 mcg/kg/min, Nimbex at 2.0 mcg/kg/min (which we will discontinue today), and vital HP at 20 cc an hour which is goal. Remains on Unasyn due to MSSA found in sputum culture. Blood cultures showing no growth after 5 days. There are no plans of weaning of mechanical ventilation. She has been on the ventilator since June 26. Spoke with mother regarding tracheostomy and PEG tube placement. Mother is agreeable with continued life support. Surgery has been consulted for tracheostomy and PEG tube placement with plans on have tracheostomy and PEG tube placement on with Dr. Quinteros. CXR showing bibisilar opacities. White count is 7.3, hemoglobin 9.5, hematocrit 31.5, platelet count 266,000. Sodium 140, potassium 4.1, chlorides 109, CO2 26, BUN 14, creatinine 0.42. Glucose is 104. Calcium is 7.8. Labs, x-rays, and all medications are reviewed. Prognosis is guarded. Objective - Vital Signs Vital signs: Vital Signs Temp 97.8 F 07/04/24 04:00 Pulse 65 07/04/24 07:00 Resp 16 07/04/24 07:00 BP 101/64 07/04/24 07:00 Pulse Ox 96 07/04/24 07:00 FiO2 60 07/04/24 07:00 Intake & Output 07/03/24 07/04/24 07/04/24 18:59 06:59 18:59 Intake Total 3364.287 3321.338 83 Output Total 509 610 50 Balance 2951.775 3466.338 33 Weight 134.1 kg 138.4 kg Intake: IV 856 946 63 0.9 @ KVO 120 110 10 Ampicillin-Sulbactam 3 gm 100 200 In Sodium Chloride 0.9% 100 ml @ 200 mls/hr IVPB Q6HR [facility] Rx#:[id number] Dextrose 5%-0.9% NaCl 1, 600 600 50 000 ml @ 50 mls/hr IV . Q20H [facility] Rx#:[id number] a-line 3ml 36 36 3 Intake, IV Titration 618.120 557.338 Amount Cisatracurium 200 mg In 165.224 162.997 Sodium Chloride 0.9% 180 ml @ 1 MCG/KG/MIN 7.728 mls/hr IV .Q24H [facility] Rx#: [id number] Midazolam HCl 50 mg In 133.650 143.916 Sodium Chloride 0.9% 40 ml @ 1 MG/HR 1 mls/hr IV .Q24H [facility] Rx#:[id number] propofoL 1,000 mg In 319.246 250.425 Empty Bag 1 bag @ 15 MCG/ KG/MIN 9.846 mls/hr IV . [id number] [facility] Rx#:[id number] Oral 50 Tube Feeding 240 240 20 Other 90 Output: Urine 509 610 50 Other: Voiding Method Indwelling Catheter Indwelling Catheter ABP, PAP, CO, CI - Last Documented Arterial Blood Pressure 108/65 - Exam Gen: intubated mechanically ventilated, sedated, obese Head: Atraumatic normocephalic HEENT: PERRLA, EOMI, nonicteric no neck masses no JVD CVS: Distant S1-S2, no S3 gallop Respiratory: Crackles at the bases, no rhonchi no wheezes GI: soft nontender no rebound no guarding, positive bowel sounds. : no suprapubic tenderness, no CVA tenderness MSK/Derm: No rashes. Skin is dry. And warm Neuro: Could not assess patient is sedated Psych: Could not assess. - Labs CBC & Chem 7: 07/04/24 04:18 07/04/24 04:18 Labs: Abnormal Lab Results - Last 24 Hours (Table) 07/04/24 07/04/24 07/04/24 Range/Units 04:18 04:18 05:10 RBC 3.15 L (3.80-5.40) m/uL Hgb 9.5 L (11.4-16.0) gm/dL Hct 31.5 L (34.0-46.0) % MCHC 30.2 L (31.0-37.0) g/dL ABG pO2 73 L (83-108) mmHg ABG HCO3 27 H (21-25) mmol/L ABG Total CO2 28 H (19-24) mmol/L Hemoglobin 9.6 L (11.4-16.0) gm/dL Chloride 109 H (98-107) mmol/L Creatinine 0.42 L (0.52-1.04) mg/dL Glucose 104 H (74-99) mg/dL Calcium 7.8 L (8.4-10.2) mg/dL Microbiology - Last 24 Hours (Table) 06/28/24 14:46 Blood Culture - Final Blood 06/28/24 14:31 Blood Culture - Final Blood Assessment and Plan Assessment: Acute respiratory failure, secondary to Wellbutrin overdose which required significant amount of sedation and patient developed respiratory failure requiring intubation and mechanical ventilation and needed to be intubated for protection of her airways as the patient received significant amount of sedation to control her agitation from Wellbutrin overdose. Again patient was intubated to protect her airways. Acute hypoxic respiratory failure secondary to pneumonia which has developed post intubation, on Unasyn Wellbutrin overdose Borderline personality disorder Suicidal attempt Aspiration pneumonia Sepsis secondary to aspiration pneumonia Electrolytes imbalance History of generalized anxiety disorder MSSA pneumonia Plan: Continue ventilatory support, not ready for weaning, patient is still requiring significant amount of sedation and paralysis to adequately ventilate maintain adequate O2 saturation Continue antibiotics /Unasyn mostly for aspiration pneumonia Continue Depakote Continue GI and DVT prophylaxis Continue propofol and Versed, fentanyl and Versed, however now that we have Nimbex, we could cut down significantly on the Versed and on the propofol. Continue seizure precautions, and continue seizure meds as per neurology on the case. Prognosis is guarded. Patient remains critically ill Patient does not qualify for any weaning trials today. I spoke to patient's mother regarding tracheostomy and PEG tube placement. P atient mother understands and is agreeable. Will d/c Nimbex. Will go up on propanol or Versed if needed. Surgery consulted, note read. Plan for trach and PEG tube placement on 07/06.
--- NOTE | 2024-07-04 11:10 | P.PN ---
Subjective Progress Note Date: 07/03/24 07/03/2024: Patient was seen for a follow-up. Patient is essentially unchanged. Still on propofol 50, fentanyl 0.5, Versed 11 and Nimbex 1.5. No seizure-like activity. 07/02/2024: Patient initially seen by Dr. Jose Angel Mccoy. Please refer to his note for details. Patient is a 28-year-old female came with Wellbutrin overdose. Ingested at least 50 tablets of Wellbutrin. Patient had seizure-like activity and is on Depakote, maxed on Versed and propofol. 2 EEGs have been negative. Patient was seen for follow-up. Patient continues to be intubated, sedated on propofol 50 mcg/kg/min. Also on fentanyl 0.5 mcg/kg/h and Versed 11 mg/h. Patient also on Nimbex 1 mg/kg/min. Per nursing report, patient became acutely agitated, tried to sit up, vomited, and then aspirated really bad. Patient is on antibiotics. No seizure-like activity has been noticed since patient is on D epakote. Patient is on maximal dose of Versed and propofol. Patient is also on thiamine 100 mg IV daily. Patient was given phenobarbital x 1 dose as recommended by the poison control. Some of the workup at this hospital visit consisted of: White blood cell is within normal limits Level is for 96 Calcium is 6.1 and ionized calcium is 4.7 Magnesium is 1.2 POC glucose is 56 and repeated is in the low 100s. Sodium is within normal limits UDS is positive for benzo as well as marijuana. Routine EEG on 06/26/2024: Is abnormal. The background slowing is suggestive of mild encephalopathy likely due to toxic-metabolic derragement as well as medication use (IV Propofol, Versed and Ativan). Otherwise, no focal slowing, epileptiform discharges or seizures. CT head: No acute intracranial hemorrhage or midline shift is seen. Vauge areas of low attenuation in the bilateral cerebellar hemispheres slightly more prominent on the right are identified. Ischemic injury is in the differential. Other etiologies not excluded. I personally reviewed CT and I personally could not rule out artifact as well. Repeat CT of the head is reported as no acute intracranial process. No significant interval change from the comparison. Repeat EEG: Is abnormal. The background slowing is suggestive of severe encephalopathy. Severe encephalopathy is likely due to toxic metabolic derangement as well as medication induced. The diffuse suppression is likely due to medication induced (Versed as well as Ativan and propofol). Otherwise there is no focal slowing, [employer] discharge or seizure on the EEG. Patient probably Objective - Vital Signs Vital signs: Vital Signs Temp 99.2 F 07/03/24 16:00 Pulse 89 07/03/24 16:00 Resp 16 07/03/24 16:00 BP 132/86 07/03/24 16:00 Pulse Ox 96 07/03/24 16:00 FiO2 70 07/03/24 16:00 Intake & Output 07/02/24 07/03/24 07/03/24 18:59 06:59 18:59 Intake Total 1788.037 4604.040 1598.120 Output Total 610 570 419 Balance 1251.746 441.041 7829.120 Weight 134.1 kg 134.1 kg Intake: IV 826 786 730 0.9 @ KVO 240 150 100 Ampicillin-Sulbactam 3 gm 100 In Sodium Chloride 0.9% 100 ml @ 200 mls/hr IVPB Q6HR [facility] Rx#:[id number] Dextrose 5%-0.9% NaCl 1, 550 600 500 000 ml @ 50 mls/hr IV . Q20H [facility] Rx#:[id number] a-line 3ml 36 36 30 Intake, IV Titration 755.746 380.040 618.120 Amount Cisatracurium 200 mg In 161.515 34.776 165.224 Sodium Chloride 0.9% 180 ml @ 1 MCG/KG/MIN 7.728 mls/hr IV .Q24H [facility] Rx#: [id number] Dextrose 5%-0.9% NaCl 1, 50 000 ml @ 50 mls/hr IV . Q20H [facility] Rx#:[id number] Midazolam HCl 50 mg In 149.317 90.017 133.650 Sodium Chloride 0.9% 40 ml @ 1 MG/HR 1 mls/hr IV .Q24H [facility] Rx#:[id number] Norepinephrine 4 mg In 28.087 Sodium Chloride 0.9% 250 ml @ 0.03 MCG/KG/MIN 12. 996 mls/hr IV .[id number] [facility] Rx#:[id number] propofoL 1,000 mg In 366.827 255.247 319.246 Empty Bag 1 bag @ 15 MCG/ KG/MIN 9.846 mls/hr IV . [id number] [facility] Rx#:[id number] Oral 50 Tube Feeding 220 240 200 Other 60 90 Output: Urine 610 570 419 Other: Voiding Method Indwelling Catheter Indwelling Catheter Indwelling Catheter ABP, PAP, CO, CI - Last Documented Arterial Blood Pressure 118/82 - Exam Exam limited, as patient is intubated, sedated and on Nimbex. Patient completely unresponsive. Exam limited due to being on medications as mentioned above - Labs CBC & Chem 7: 07/04/24 04:18 07/04/24 04:18 Labs: Abnormal Lab Results - Last 24 Hours (Table) 07/02/24 07/03/24 07/03/24 Range/Units 18:59 04:20 04:20 RBC 3.31 L (3.80-5.40) m/uL Hgb 9.9 L (11.4-16.0) gm/dL Hct 33.2 L (34.0-46.0) % MCV 100.3 H (80.0-100.0) fL MCHC 29.7 L (31.0-37.0) g/dL ABG pO2 (83-108) mmHg ABG HCO3 (21-25) mmol/L ABG Total CO2 (19-24) mmol/L ABG O2 Saturation (94-97) % Hemoglobin (11.4-16.0) gm/dL Chloride 112 H (98-107) mmol/L Creatinine 0.42 L (0.52-1.04) mg/dL Glucose 137 H (74-99) mg/dL POC Glucose (mg/dL) 120 H (70-110) mg/dL Calcium 8.0 L (8.4-10.2) mg/dL 07/03/24 Range/Units 04:59 RBC (3.80-5.40) m/uL Hgb (11.4-16.0) gm/dL Hct (34.0-46.0) % MCV (80.0-100.0) fL MCHC (31.0-37.0) g/dL ABG pO2 69 L (83-108) mmHg ABG HCO3 27 H (21-25) mmol/L ABG Total CO2 28 H (19-24) mmol/L ABG O2 Saturation 93.2 L (94-97) % Hemoglobin 9.9 L (11.4-16.0) gm/dL Chloride (98-107) mmol/L Creatinine (0.52-1.04) mg/dL Glucose (74-99) mg/dL POC Glucose (mg/dL) (70-110) mg/dL Calcium (8.4-10.2) mg/dL Assessment and Plan Assessment: This is a 28-year-old woman with a history of borderline personality disorder who presented emergency department because of a suicidal attempt by taking multiple Wellbutrin tablets. During this hospital visit the patient is agitated, restless tachycardic hypertensive requiring Ativan, Librium Benadryl and Haldol. She was intubated on ventilator and she required IV propofol Versed and when was weaned down nurse felt maybe there was a seizure-like activity but upon asking the nurse it seems that the patient was having tremor and no conv ulsion Questionable few episode of seizure-like activity: Unsure if patient is having withdrawing symptoms. If she did have a seizure its likely provoked due to her metabolic derangement and perhaps due to lowering seizure threshold from Wellbutrin. She had 2 EEG so far and negative for seizure or discharges. Is on High dose Versed and Propofol and is on Depakote. Metabolic encephalopathy, severe degree Suicidal attempt Hypoglycemia Hypomagnesium History of borderline personality disorder Plan: Patient had a repeat CT head performed on 06/29/2024, which revealed no acute intracranial process. Patient is on Valproic acid 500 mg twice daily which helps with the seizures as well as the mood Med Ativan 1 mg every hour as needed for seizures Seizure precaution and pads Psychiatry is consulted Please avoid any further hypoglycemia and will defer correction of the electrolyte imbalance to primary and ICU team. Will defer the rest of the medical management to primary other specialist Repeat EEG in the morning. Plan discussed with the ICU nurse.
[2024-07-04 11:37] LABS: Glucose,Whole Blood 106 mg/dL (70-110)
--- NOTE | 2024-07-04 14:10 | P.PN ---
Subjective Progress Note Date: 07/04/24 28 year old F with PMH of anxiety and borderline personality disorder on Wellbutrin presented after intentional ingestion of Wellbutrin. Patient is psychotic at the time my evaluation does not provide reliable history. According to ER provider signout as well as chart review, patient ingested somewhere between 50-90 extended release Wellbutrin tablets and an overdose attempt. Patient is clearly agitated, tachycardic at the time my evaluation. Upon arrival patient was afebrile, 148/96, heart rate 83. Patient subsequently received activated charcoal, was started on IV fluids, and given a total of 7 mg of Ativan while on continuous telemetry, with heart rates increasing to the 130s to 140s. The ER provider did contact poison control control who recommended medical monitoring until patient is stable for transfer to the mental health unit. Review of lab work shows normal CBC, CO2 of 20, ALT of 91, negative troponin, normal lactic acid, negative salicylate level, alcohol level, Tylenol level. Initial EKG shows normal sinus rhythm with a short HI interval and right axis deviation. Patient was admitted to the cardiac selective floor with telemetry, with low threshold for ICU escalation. Received multiple doses of Ativan + Librium, remained agitated, intubated on 06/27. Concerns for aspiration on 06/28, started on Zosyn with Vancomycin added for staph sputum Cx. IV consulted, switched to Unasyn on 06/29. Concerns for seizures, started on Depakote, Neurology consulted. CT head showed no acute hemorrhage, areas of low-attenuation in the bilateral cerebellar hemisphere slightly more prominent on the right, per neurology, could be artifact. EEG done in was abnormal, showed background slowing suggestive of mild encephalopathy likely due to toxic metabolic derangement as well as m edication use, no epileptiform discharges, seizures. Poison control recommended phenobarbital 570 mg IV x1 on 06/29. Difficulty with extubation, CTA chest 07/02 showed no PE, multifocal PNA, cardiomegaly with small pleural effusions. Plan is for trach/PEG. 07/04 Patient was seen and examined. Intubated. Sedation and paralytics include Nimbex at 2 mcg/kg/hr, Fentanfyl at 0.5 mcg/kg/hr, Propofol at 50 mcg/kg/hr, and Midazolam at 11 mg/hr. Vent settings include rate 16, tidal volume 500, FiO2 60% with PEEP of 12. Antibiotics include Unasyn 3g IV TID. Currently on D5W at 50 cc/hr. CBC, BMP significant for RBC 3.15, Hg 9.5 Hct 31.5, Cl 109, Cr 0.42, glu 104, Ca 7.8. ABG pH 7.43, pCO2 41, pO2 73 with FiO2 60%. CXR bibasilar airspace opacities. General: Intubated. Obese. Derm: warm, dry Head: atraumatic, normocephalic, symmetric Eyes: no lid lag, anicteric sclera Mouth: no lip lesion, mucus membranes moist Cardiovascular: S1S2 reg, no murmur Lungs: Bilateral rhonchi, no rales , no accessory muscle use Ext: no gross muscle atrophy, no edema, no contractures Neuro: Unable to determine Psych: Unable to determine Based on my assessment of this patient, this patient meets a high complexity le kathleen of care. Acute respiratory failure s/p intubation for airway protection 06/27: CTA chest negative for PE but does show multifocal PNA with cardiomegaly and small pleural effusions. Plans for trach and PEG 07/06. Sputum culture growing Staph aureus: Unasyn as below. Sepsis likely secondary to aspiration pneumonia: Continue Unasyn 3g IV TID per ID recommendations. Tylenol 650 mg PO Q6H PRN fever. Elevated HOB. Aspiration precautions. Vent management per Pulmonary. Acute metabolic encephalopathy due to below: EEG shows encephalopathy. CT head 06/29 no acute process. Continue Valproic acid 500 mg PO BID. Seizure precautions. Neurology on board. Intentional overdose with Wellbutrin Iron def anemia: Iron level of 9. Defer IV iron while treating active infection. Monitor Hg. Transfuse if Hg < 7. Constipation: Miralax 17g PO QHS. Lactulose 20g PO QD PRN. Anxiety and Borderline personality disorder: Pyschiatry on board. Resolved: Metabolic acidosis, Hypokalemia, Hypomagnesemia CODE STATUS: FULL CODE. DVT Prophylaxis: Heparin SQ GI Prophylaxis: Protonix IV Designated medical POA if patient is not able to make medical decisions for themselves: I have reviewed the following surgical consultant notes: Pulmonary, Surgery. I have reviewed the results of the following tests: As above. I have ordered the following tests: CBC, BMP. I have discussed the care of this patient with the following independent historian: I have independently interpreted the following test below: I have discussed the management of this patient with the following physician: Objective - Vital Signs Vital signs: Vital Signs Temp 98.4 F 07/04/24 12:00 Pulse 89 07/04/24 13:00 Resp 16 07/04/24 13:00 BP 131/88 07/04/24 13:00 Pulse Ox 97 07/04/24 13:00 FiO2 60 07/04/24 13:00 Intake & Output 07/03/24 07/04/24 07/04/24 18:59 06:59 18:59 Intake Total 9316.847 2649.338 1026.9 Output Total 509 610 395 Balance 8976.611 2189.338 631.9 Weight 134.1 kg 138.4 kg Intake: IV 856 946 614 0.9 @ KVO 120 110 60 Ampicillin-Sulbactam 3 gm 100 200 100 In Sodium Chloride 0.9% 100 ml @ 200 mls/hr IVPB Q6HR [facility] Rx#:[id number] Dextrose 5%-0.9% NaCl 1, 600 600 400 000 ml @ 50 mls/hr IV . Q20H [facility] Rx#:[id number] Invasive Line 3 30 a-line 3ml 36 36 24 Intake, IV Titration 618.120 557.338 192.9 Amount Cisatracurium 200 mg In 165.224 162.997 Sodium Chloride 0.9% 180 ml @ 1 MCG/KG/MIN 7.728 mls/hr IV .Q24H [facility] Rx#: [id number] Midazolam HCl 50 mg In 133.650 143.916 92.9 Sodium Chloride 0.9% 40 ml @ 1 MG/HR 1 mls/hr IV .Q24H [facility] Rx#:[id number] propofoL 1,000 mg In 319.246 250.425 100 Empty Bag 1 bag @ 15 MCG/ KG/MIN 9.846 mls/hr IV . [id number] [facility] Rx#:[id number] Oral 50 Tube Feeding 240 240 160 Other 90 60 Output: Urine 509 610 395 Other: Voiding Method Indwelling Catheter Indwelling Catheter # Bowel Movements 1 ABP, PAP, CO, CI - Last Documented Arterial Blood Pressure 99/89 - Labs CBC & Chem 7: 07/04/24 04:18 07/04/24 04:18 Labs: Abnormal Lab Results - Last 24 Hours (Table) 07/04/24 07/04/24 07/04/24 Range/Units 04:18 04:18 05:10 RBC 3.15 L (3.80-5.40) m/uL Hgb 9.5 L (11.4-16.0) gm/dL Hct 31.5 L (34.0-46.0) % MCHC 30.2 L (31.0-37.0) g/dL ABG pO2 73 L (83-108) mmHg ABG HCO3 27 H (21-25) mmol/L ABG Total CO2 28 H (19-24) mmol/L Hemoglobin 9.6 L (11.4-16.0) gm/dL Chloride 109 H (98-107) mmol/L Creatinine 0.42 L (0.52-1.04) mg/dL Glucose 104 H (74-99) mg/dL Calcium 7.8 L (8.4-10.2) mg/dL Microbiology - Last 24 Hours (Table) 06/28/24 14:46 Blood Culture - Final Blood 06/28/24 14:31 Blood Culture - Final Blood
--- NOTE | 2024-07-04 14:27 | P.PN ---
Subjective Progress Note Date: 07/04/24 Principal diagnosis: Reason for follow-up is MSSA/aspiration pneumonia Patient is a 28-year-old female with a past medical history of dependent for reflux, anxiety and depression presenting to the hospital after the patient overdosed on 50-90 Wellbutrin tablets subsequent did have a agitation respiratory distress requiring revision admission to the ICU ID consulted because of concern for aspiration pneumonia. On today's evaluation that is 07/04/2024, Patient is afebrile this morning patient remains to be debated on the vent FiO2 currently at 60% no significant p urulent secretion through the ET diarrhea however the nursing staff mention significant vaginal candidiasis and need treatment for it. Patient white count 7.3, creatinine 0.42 blood culture has been negative Objective - Vital Signs Vital signs: Vital Signs Temp 98.4 F 07/04/24 12:00 Pulse 89 07/04/24 13:00 Resp 16 07/04/24 13:00 BP 131/88 07/04/24 13:00 Pulse Ox 97 07/04/24 13:00 FiO2 60 07/04/24 13:00 Intake & Output 07/03/24 07/04/24 07/04/24 18:59 06:59 18:59 Intake Total 8102.240 5779.338 1309.863 Output Total 509 610 395 Balance 8355.827 8439.338 914.863 Weight 134.1 kg 138.4 kg Intake: IV 856 946 644 0.9 @ KVO 120 110 60 Ampicillin-Sulbactam 3 gm 100 200 100 In Sodium Chloride 0.9% 100 ml @ 200 mls/hr IVPB Q6HR [facility] Rx#:[id number] Dextrose 5%-0.9% NaCl 1, 600 600 400 000 ml @ 50 mls/hr IV . Q20H [facility] Rx#:[id number] Invasive Line 3 60 a-line 3ml 36 36 24 Intake, IV Titration 618.120 557.338 445.863 Amount Cisatracurium 200 mg In 165.224 162.997 252.963 Sodium Chloride 0.9% 180 ml @ 1 MCG/KG/MIN 7.728 mls/hr IV .Q24H [facility]S Rx#: [id number] Midazolam HCl 50 mg In 133.650 143.916 92.9 Sodium Chloride 0.9% 40 ml @ 1 MG/HR 1 mls/hr IV .Q24H [facility] Rx#:[id number] propofoL 1,000 mg In 319.246 250.425 100 Empty Bag 1 bag @ 15 MCG/ KG/MIN 9.846 mls/hr IV . [id number] [facility] Rx#:[id number] Oral 50 Tube Feeding 240 240 160 Other 90 60 Output: Urine 509 610 395 Other: Voiding Method Indwelling Catheter Indwelling Catheter # Bowel Movements 1 ABP, PAP, CO, CI - Last Documented Arterial Blood Pressure 99/89 - Exam GENERAL DESCRIPTION: Middle-age female intubated on the vent RESPIRATORY SYSTEM: Unlabored breathing , decreased breath sounds at bases HEART: S1 S2 regular rate and rhythm , ABDOMEN: Soft , no tenderness EXTREMITIES: No edema feet - Labs CBC & Chem 7: 07/04/24 04:18 07/04/24 04:18 Labs: Abnormal Lab Results - Last 24 Hours (Table) 07/04/24 07/04/24 07/04/24 Range/Units 04:18 04:18 05:10 RBC 3.15 L (3.80-5.40) m/uL Hgb 9.5 L (11.4-16.0) gm/dL Hct 31.5 L (34.0-46.0) % MCHC 30.2 L (31.0-37.0) g/dL ABG pO2 73 L (83-108) mmHg ABG HCO3 27 H (21-25) mmol/L ABG Total CO2 28 H (19-24) mmol/L Hemoglobin 9.6 L (11.4-16.0) gm/dL Chloride 109 H (98-107) mmol/L Creatinine 0.42 L (0.52-1.04) mg/dL Glucose 104 H (74-99) mg/dL Calcium 7.8 L (8.4-10.2) mg/dL Microbiology - Last 24 Hours (Table) 06/28/24 14:46 Blood Culture - Final Blood 06/28/24 14:31 Blood Culture - Final Blood Assessment and Plan (1) Sepsis Current Visit: Yes Status: Acute Code(s): A41.9 - SEPSIS, UNSPECIFIED ORGANISM SNOMED Code(s): 38238379 (2) Pneumonia Current Visit: Yes Status: Acute Code(s): J18.9 - PNEUMONIA, UNSPECIFIED ORGANISM SNOMED Code(s): 129442407 (3) MSSA (methicillin susceptible Staphylococcus aureus) infection Current Visit: Yes Status: Acute Code(s): A49.01 - METHICILLIN SUSCEP STAPH INFECTION, UNSP SITE SNOMED Code(s): 715444185 Plan: 1patient presenting the hospital with drug overdose with subsequent agitation respiratory distress requiring intubation concerning for possible aspiration pneumonia sputum is now growing MSSA in this patient who did have features of sepsis with fever elevated white count and hypotension requiring low-dose pressor support on initial evaluation. 2-patient did have resolution of her fever the patient white count normalized blood culture have been negative so far, sputum is growing MSSA 3patient has developed extensive vaginal area candidiasis unable to use Diflucan because of drug interaction we will give a short course of Eraxis continue with Unasyn Dictation was produced using [employer] dictation software. please excuse any grammatical, word or spelling errors. Time with Patient: Less than 30
[2024-07-04] MEDS: ANIDULAFUNGIN 200 MG in SODIUM CHLORIDE 0.9% 200 ML IVPB ONE (16:40)
[2024-07-04] MEDS: SODIUM CHLORIDE 0.9% IV SCH (16:50)
[2024-07-04] MEDS: MIDAZOLAM HCL IV SCH (16:50)
[2024-07-04] MEDS: ZINC OXIDE PASTE (Z-GUARD) 1 APPLIC TOPICAL PRN (17:04)
[2024-07-04] MEDS: fentaNYL (PF) 2,500 MCG in SODIUM CHLORIDE 0.9% 200 ML IV SCH (19:36)
--- NOTE | 2024-07-04 21:33 | P.CON ---
Consult Note - . Consult date: 07/04/24 Assessment/Plan:: CHIEF COMPLAINT: Wellbutrin overdose HISTORY OF PRESENT ILLNESS: This is a 28-year-old female who presented to the [facility] after a Wellbutrin overdose. Patient was given charcoal and initially went to the floor. However, ATEAM was called due to her severe agitation and she was brought into the ICU and sedated. Patient required to be intubated on June 26 to protect her airway. She also developed aspiration pneumonia. She remains on the ventilator due to respiratory failure. She is on a PEEP of 12. They have been unable to wean patient from the ventilator. Surgical service has been consulted for tracheostomy and PEG tube placement. PAST MEDICAL HISTORY: GERD, depression PAST SURGICAL HISTORY: See below MEDICATIONS: See below ALLERGIES: See below SOCIAL HISTORY: No illicit drug use. Marijuana REVIEW OF SYSTEMS: Unable to obtain. Patient intubated and sedated. PHYSICAL EXAM: VITAL SIGNS: Reviewed GENERAL: Well-developed in no acute distress. ABDOMEN: Soft. Obese. Nondistended. NEUROLOGIC: Intubated and sedated LABORATORY DATA: WBC 8.4 Hgb 9.9 platelets 248 Sodium 143 potassium 3.9 creatinine 0.42 Albumin 2.9 IMAGING: ASSESSMENT: 1. Acute respiratory failure s/p intubation to protect airway after significant sedation for Wellbutrin overdose and aspiration pneumonia 2. Severe protein calorie malnutrition 3. Suicide attempt with Wellbutrin overdose PLAN: -Patient scheduled for tracheostomy and PEG tube placement tomorrow 3/5 -Hold Tube Feeds at [facility] [phone]
--- NOTE | 2024-07-04 22:02 | EEG ---
ELECTROENCEPHALOGRAM REPORT PREAMBLE: This is a 28-year-old female, who came with overdose on Wellbutrin. The patient continues to be intubated, sedated. EEG FINDINGS: This is a 21-channel digital EEG recorded with a video component, utilizing 10/20 international system with referential and bipolar montage. The recording starts and continues with the presence of [id number] amplitude mixed frequencies of 4 Hz theta with 2 to 3 Hz generalized delta slowing in bihemispheric region. Background does not seem to be reactive to photic stimulation. Different stages of sleep were not seen. No focal or generalized epileptiform activity was seen. IMPRESSION: This is an abnormal EEG due to background slowing of [id number] degree. This is suggestive of generalized cerebral dysfunction as can be seen with toxic metabolic encephalopathy or related to diffuse structural brain abnormality. Clinical correlation is recommended. No obvious epileptiform activity was seen. When compared to the EEG from 06/29/2024, the intermittent background suppression seen in the previous study has resolved, but now has replaced with diffuse, high-amplitude theta and delta slowing as mentioned above. Followup EEG recommended, if clinically indicated. MMODL / IJN: [id number] /
[2024-07-04 23:28] LABS: Glucose,Whole Blood 115 mg/dL (70-110)
[2024-07-05 04:36] LABS: HCT 30.8 % (34.0-46.0); HGB 9.8 gm/dL (11.4-16.0); Hypochromasia Slight; MCH 31.2 pg (25.0-35.0); MCHC 31.8 g/dL (31.0-37.0); MCV 98.1 fL (80.0-100.0); Mean Platelet Volume 7.9; Platelet Count 286 k/uL (150-450); RBC 3.14 m/uL (3.80-5.40); RDW 13.4 % (11.5-15.5); WBC 7.9 k/uL (3.8-10.6)
[2024-07-05 04:52] LABS: African American GFR (CKD) >90 (>60 ml/min/1.73 sqM); Anion Gap 7 mmol/L; Blood Urea Nitrogen 11 mg/dL (7-17); Carbon Dioxide 24 mmol/L (22-30); Chloride 109 mmol/L (98-107); Glucose 97 mg/dL (74-99); Magnesium 2.2 mg/dL (1.6-2.3); Non-African American GFR(CKD) >90 (>60 ml/min/1.73 sqM); Potassium 3.7 mmol/L (3.5-5.1); Sodium 140 mmol/L (137-145)
[2024-07-05 05:12] LABS: ABG Base Excess 3.1 mmol/L; ABG HCO3 27 mmol/L (21-25); ABG Oxygen Saturation 94.4 % (94-97); ABG PCO2 37 mmHg (35-45); ABG PH 7.47 (7.35-7.45); ABG PO2 69 mmHg (83-108); ABG TCO2 28 mmol/L (19-24)
[2024-07-05 05:15] LABS: Allen Test Performed? no
[2024-07-05] MEDS: POTASSIUM CHLORIDE 20 MEQ in WATER FOR INJECTION 1 100ML.BAG IVPB ONE (05:51)
[2024-07-05] MEDS ORDERED: POTASSIUM CHLORIDE ER 20 MEQ TAB.ER PO SCH (06:00)
[2024-07-05 06:17] LABS: Glucose,Whole Blood 88 mg/dL (70-110)
--- NOTE | 2024-07-05 07:12 | XR ---
EXAMINATION TYPE: XR chest 1V portable DATE OF EXAM: 07/05/2024 5:43 AM COMPARISON: Chest radiograph from one day prior. CLINICAL INDICATION: Female, 28 years old with history of vent; [facility] TECHNIQUE: XR chest 1V portable Frontal view of the chest. FINDINGS: Lungs/Pleura: Similar bibasilar hazy appearance. No evidence of pneumothorax or pleural effusion. Pulmonary vascularity: Unremarkable. Heart/mediastinum: Cardiomediastinal silhouette is unremarkable. Musculoskeletal: No acute osseous pathology. Other findings: None Lines/Tubes: Endotracheal tube with distal tip 2.7 cm above the donnie. Nasogastric tube with its distal tip and side-port projecting under the diaphragm. IMPRESSION: Similar hazy appearance to the lung bases possibly due to overlapping soft tissues.. [facility], , 07/05/2024 7:10 AM
[2024-07-05] MEDS: ANIDULAFUNGIN 100 MG in SODIUM CHLORIDE 0.9% 100 ML IVPB SCH (07:50)
--- NOTE | 2024-07-05 09:55 | P.PN ---
Subjective Progress Note Date: 07/05/24 This is a 28-year-old female with history of borderline personality disorder, presented yesterday to the ER with intentional suicidal attempt by taking multiple Wellbutrin tablets. According to the chart patient may have taken about 30 tablets. Patient stated to the ER physician that she does not want to live like this anymore, and she took many tablets of Wellbutrin. This was obviously a suicidal attempt. Patient received activated charcoal, patient was admitted to the medical floor, however this morning patient was becoming more and more agitated and restless, becoming more lightheaded, patient was getting quite tachycardic, and hypertensive. Has been receiving Ativan and Librium overnight, rapid response team responded to the patient this morning and she received additional 8 mg of Ativan, 50 mg of Benadryl and 5 mg of Haldol. Continued to be agitated and requiring 4 point restraints. At this point patient was intubated, placed on propofol drip and Versed drip, transferred to the ICU, and I saw her on consultation upon arrival. Patient required lines placement including a right femoral triple-lumen catheter and right radial arterial line which was done on emergency basis as the patient had very poor peripheral IV access. Patient was intubated and mechanically ventilated, she is on assist-control rate of 16 tidal volume 450 FiO2 50% and PEEP of 5 ABG showed a pO2 of 364 pCO2 of 39 pH of 7.29 she received 1 amp of bicarb. Patient was on propofol at 50 mcg/kg/min Versed at 3 mg/h IV fluid 0.9 at 75 cc/h and she is on the usual ICU protocol for GI and DVT prophylaxis she is also on ventilatory support, and will address nutritional support later today or tomorrow. CBC showed WBC of 6.3 hemoglobin 12.4 electrolytes showed low potassium of 3.0 being addressed accordingly, labs were all reviewed, test was negative. Drug screen showed positive for benzodiazepines and positive for marijuana. Otherwise was negative. Patient was evaluated today on 06/27/2024, remains in the ICU, intubated and mechanically ventilated. Patient is on assist-control rate of 16 tidal volume 450 FiO2 40% PEEP of 5 ABG showed a pO2 of 114 pCO2 38 pH of 7.43. Patient remains on propofol at 50 mcg/kg/min she is also on Versed at 5 mg/h and earlier this morning the patient developed low urine output, and low blood pressure, she received multiple fluid boluses about 3 L, and she had to be placed on norepinephrine at 0.01 mcg/kg/min, I feel the hypotension is most likely related to excessive sedation, and her poor urine output is secondary to low blood pressure. Today I recommended that we cut down on her sedation and hopefully try to transition the patient to Precedex if possible. Apparently this was attempted but the patient woke up suddenly and vomited, and was noted to be restless and agitated has recommended that she goes back on Versed and propofol and the dose to be titrated. Patient has not had any seizure activity, she remains on GI and DVT prophylaxis, heparin subcu, remains on seizure precautions, labs today show WBC count of 4.9 hemoglobin 10.8, electrolytes were noted to be normal renal profile is normal creatinine 0.68 CPK elevated at 508 and this is very related to her recent seizure. Chest x-ray continues to show bibasilar atelectasis, doubt infiltrate. Although patient is set up for aspiration. The chest x-ray is not quite impressive to consider starting empiric antibiotics. Patient was seen today on 06/28/2024, patient remains in the ICU, intubated and mechanically ventilated, she is on assist-control rate of 16 tidal volume 400 FiO2 50% and PEEP of 5. Patient had an earlier blood gas on 40% FiO2 which showed a pO2 of 54 pCO2 29 pH of 7.50 and apparently the gas was done earlier shortly after she was witnessed to have an aspiration episode as she woke up and became agitated, she aspirated and developed right lower lobe ate lectasis/infiltrate and possibly a small right-sided pleural effusion hence her FiO2 was increased to 50%. Patient is on propofol at 50 mcg/kg/min, Versed and 13 mg/h norepinephrine at 0.02 mcg/kg/min vital HP at 40/45 and IV fluid 0.9 normal saline at 75 cc/h. WBC count is 7.6 hemoglobin is 11.2, basic metabolic profile is relatively normal however her bicarb is 15 potassium is 2.8, anion gap is 6, and her creatinine kinase is 496. Sputum cultures today are showing presumptive Staph aureus, patient was placed earlier today on Zosyn and now I will go ahead and add vancomycin. Patient was seen today on 06/29/2024, patient remains in the ICU, intubated and mechanically ventilated, continues to have intermittent episodes of seizure-like activities although the patient is maximized on propofol at 50 mcg/kg/min on Versed at 15 mg/h patient is requiring norepinephrine at 0.04 mcg/kg/min she is on 0.9 normal saline at 75 cc/h and vital HP at 45 cc/h. CT of the head showed some questionable ischemic injury being addressed by neurology, and recommending eventually MRI. Patient remains on Zosyn and vancomycin for aspiration pneumonia and positive sputum for MRSA. Remains on assist-control rate of 16 tidal volume 400 FiO2 50% and PEEP of 5 ABG showed a pO2 of 70 pCO2 30 pH of 7.42. Hence no changes were made in vent settings. Infectious disease was consulted for her positive Staph aureus in the sputum in the meantime we will continue with vancomycin and Zosyn. Patient clearly had aspiration pneumonia chest x-ray is consistent with aspiration pneumonia. At this point in time the patient is not ready for any weaning as she gets extremely restless and agitated and again she has these episodes of seizure-like activities, Poison control recommended phenobarbital. Patient will be given a dose of phenobarbital x 1. Labs today show WBC is 14.3 hemoglobin 11.2, basic metabolic profile is normal electrolytes are normal bicarb is a bit low at 19 renal profile is normal. CPK is coming down to 302. Patient was seen today on 06/30/2024, remains in the ICU, remains intubated and mechanically ventilated, she is on assist-control rate of 16 tidal volume 400 FiO2 60% and PEEP up to 10. ABG showed a pO2 of 96 pCO2 34 pH of 7.40 her PEEP was at 5 prior to this blood gas, and I increased the PEEP up to 10. Patient remains on Versed at 15 mg/h patient is also on propofol at 75 mg/kg/min norepinephrine is presently on hold patient is receiving fluid at 75 cc/h she is also on vital / patient is now on Unasyn, and her vancomycin was discontinued because the sputum was positive for MSSA and not MRSA. Urine output is adequate about 50 to 60 cc/h patient received 1 dose of phenobarbital yesterday for extreme agitation, and questionable seizures, neurology has the patient now on Depakote. Overall the patient is not making much improvement, her chest x-ray continues to show worsening of her aspiration pneumonia. And her FiO2 requirement remains relatively high, PEEP was increased today up to 10. Labs today showed WBC count of 12.1 hemoglobin 9.9. Platelets are 191. Basic metabolic profile is normal bicarb is 21 BUN is 6 creatinine 0.45 CPK is down to 248. Patient is now on Unasyn, heparin subcu, Ativan as needed, propofol and Versed, pantoprazole, she received 1 dose of phenobarbital, patient is also receiving valproic acid and Tigan. She is also receiving thiamine Seen today on 07/01/2024, patient remains about the same, remains critically ill, remains intubated mechanically ventilated, on assist-control rate of 16 tidal volume 400 FiO2 60% PEEP of 10 ABG remains marginal with a pO2 of 72 pCO2 34 pH of 7.40. Still requiring significant amount of sedation including Versed at 14 mg/h, norepinephrine at 0.02 presently on hold, she is on propofol at 75 mcg/kg/min. , IV fluids 0.9 normal saline at 75 cc/h. Chest x-ray continues to show significant bilateral airspace disease specially right lower lobe and left lower lobe consistent with aspiration pneumonia. Patient remains on antibiotics. WBC count today is 9.8 hemoglobin 9.9. Electrolytes showed low potassium of 3.3 being addressed accordingly, otherwise the patient has normal renal functioning. Remains on nutritional support/enteral feeding. Patient was seen today on 07/02/2024, remains in the ICU, intubated and mechanically ventilated, sedated, and paralyzed. Yesterday the patient continued to have significant agitation and spite of significant sedation including high-dose propofol, and high-dose Versed, she Desaturating frequently, and FiO2 was increased up to 70%, PEEP was increased up to 12, hence I recommended Nimbex to be started, patient was bolused and placed on Nimbex drip. Remains on Nimbex drip at 1 mcg/kg/min, remains on IV fluid at 50 cc/h in the form of D5.9 she is on fentanyl at 0.5 mcg/kg/h Versed is down to 12 mg/h propofol at 50 mcg/kg/min, patient was also placed on Decadron yesterday for her extensive pneumonic process involving both lower lobes, this was felt to be aspiration pneumonia. Her sputum has been positive for MSSA. Patient remains o n GI and DVT prophylaxis. Vent settings today on AC rate of 16 tidal volume of 400 was increased to 500 yesterday, FiO2 down to 50% PEEP is 12 her ABG showed a pO2 of 95 pCO2 54 pH of 7.25 and that is when her tidal volume was increased to 500. Patient remains on nutritional support/enteral feeding, today she is not requiring norepinephrine but she has been intermittently on norepinephrine. Uri ne output is good about 50 to 60 cc/h. Chest x-ray continues show bilateral extensive infiltrates involving right lower lobe and left lower lobe. Labs today WBC count is 10.1 hemoglobin is 10.3 repeat ABG after vent setting changes showed a pO2 of 74 pCO2 42 pH of 7.37 and this is on 50% FiO2. 07/03/2024: This is a 28-year-old female with history of borderline personality disorder admitted to ICU on 06/26 and was subsequently intubated due to acute respiratory failure secondary to Wellbutrin overdose. According to the chart patient may have taken about 30-90 tablets. Patiente was intubtated on 06/26 due to extreme agitation and restlessness. Patient was seen today on 07/02/2024, she remains in ICU mechanically ventilated, sedated, and paralyzed. She is on assist-control at a rate of 16, tidal volume of 500, FiO2 at 70%, PEEP of 12. ABG this morning showing pH of 7.4, pCO2 44, pO2 69. Currently on Nimbex 1.5 mcg/mg/min, propofol 50 mcg/kg/min, fentanyl 0.5mcg/kg/hr, Versed 11 mg/hr, and propofol 50 mcg/kg/min. Intermittently has been on norepinephrine, but is currently not requiring it at this moment. Last weaning trial was on 06/29. Tube nutritional support/enteral feeding vital HP at goal. No overnight events. Chest x-ray showing patchy basilar infiltrates, no change from prior. Remains on Unasyn at 200 MLS/HR IVPB every 6 hours due to aspiration pneumonia. Remains on Decadron 6 mg IVP every 6 hours. Labs: WBC 8.5, Hgb 9.9 1, HCT 33.2, platelet 248, sodium 143, potassium 3.9, BUN 11, creatinine 0.14, glucose 137. Patient seen today on 07/04/2024 in room 260. She remains sedated on mechanical ventilator. She is on volume assist-control, rate 16, tidal volume 500, FiO2 60%, PEEP of 12. Blood gases show pO2 of 73, pCO2 of 41, pH is 7.43. The patient is getting D5.9 at 50 cc an hour, fentanyl drip at 0.5 mcg/kg/h, Versed at 11 mg an hour, propofol at 50 mcg/kg/min, Nimbex at 2.0 mcg/kg/min (which we will discontinue today), and vital HP at 20 cc an hour which is goal. Remains on Unasyn due to MSSA found in sputum culture. Blood cultures showing no growth after 5 days. There are no plans of weaning of mechanical ventilation. She has been on the ventilator since June 26. Spoke with mother regarding tracheostomy and PEG tube placement. Mother is agreeable with continued life support. Surgery has been consulted for tracheostomy and PEG tube placement with plans on have tracheostomy and PEG tube placement on with Dr. Quinteros. CXR showing bibisilar opacities. White count is 7.3, hemoglobin 9.5, hematocrit 31.5, platelet count 266,000. Sodium 140, potassium 4.1, chlorides 109, CO2 26, BUN 14, creatinine 0.42. Glucose is 104. Calcium is 7.8. Labs, x-rays, and all medications are reviewed. Prognosis is guarded. Patient seen today on 07/05/2024 in room 260. She remains on mechanical ventilator. She is on volume assist-control, rate 16, tidal volume 500, FiO2 60%, PEEP of 12. Blood gases show pO2 of 69, pCO2 of 37, pH is 7.47. The patient is getting D5.9 at 50 cc an hour, fentanyl drip discontinued around 4:00am, Versed at 15 mg an hour, propofol at 75 mcg/kg/min, Nimbex removed at 2:30p yesterday, and tube feeds have been on hold since midnight. Remains on Unasyn due to MSSA found in sputum culture. She has also been placed on Eraxis by ID due to vaginal candidiasis. She has been on the ventilator since June 26. Surgery has been consulted and tracheostomy is scheduled for today with Dr Pruett at 11am. CXR showing bibisilar opacities, similar to prior. White count is 7.9, hemoglobin 9.8, hematocrit 30.8, platelet count 286,000. Sodium 140, potassium 4.1, chlorides 109, CO2 24, BUN 11, creatinine 0.37. Glucose is 97. Calcium is 8.0. Labs, x-rays, and all medications are reviewed. Plan is for tracheostomy and PEG tube placement today. Prognosis is guarded. Objective - Vital Signs Vital signs: Vital Signs Temp 98.5 F 07/05/24 04:00 Pulse 60 07/05/24 07:00 Resp 16 07/05/24 07:00 BP 114/75 07/05/24 07:00 Pulse Ox 96 07/05/24 07:00 FiO2 60 07/05/24 07:00 Intake & Output 07/04/24 07/05/24 07/05/24 18:59 06:59 18:59 Intake Total 2327.465 1477.908 63 Output Total 875 880 45 Balance 1452.465 597.908 18 Weight 139.4 kg Intake: IV 1289 793 63 0.9 @ KVO 110 110 10 Ampicillin-Sulbactam 3 gm 200 200 In Sodium Chloride 0.9% 100 ml @ 200 mls/hr IVPB Q6HR [facility] Rx#:[id number] Anidulafungin 200 mg In 200 Sodium Chloride 0.9% 200 ml @ 84 mls/hr IVPB ONCE ONE Rx#:[id number] Dextrose 5%-0.9% NaCl 1, 650 450 50 000 ml @ 50 mls/hr IV . Q20H [facility] Rx#:[id number] Invasive Line 3 90 a-line 3ml 39 33 3 Intake, IV Titration 688.465 554.908 Amount Cisatracurium 200 mg In 258.244 Sodium Chloride 0.9% 180 ml @ 1 MCG/KG/MIN 7.728 mls/hr IV .Q24H [facility] Rx#: [id number] Midazolam HCl 200 mg In 166.5 Sodium Chloride 0.9% 160 ml @ 11 MG/HR 11 mls/hr IV .[id number] [facility] Rx#: [id number] Midazolam HCl 50 mg In 141.267 Sodium Chloride 0.9% 40 ml @ 1 MG/HR 1 mls/hr IV .Q24H [facility] Rx#:[id number] fentaNYL (PF) 2,500 mcg 117.745 In Sodium Chloride 0.9% 200 ml @ 1.5 MCG/KG/HR 19 .32 mls/hr IV .[id number] [facility] Rx#:[id number] fentaNYL (PF). 1,000 mcg 10.733 In Sodium Chloride 0.9% 80 ml @ 0.5 MCG/KG/HR 6. 44 mls/hr IV .[id number] [facility] Rx#:[id number] propofoL 1,000 mg In 278.221 270.663 Empty Bag 1 bag @ 15 MCG/ KG/MIN 9.846 mls/hr IV . [id number] [facility] Rx#:[id number] Tube Feeding 260 100 Other 90 30 Output: Urine 675 880 45 Stool 200 Other: Voiding Method Indwelling Catheter Indwelling Catheter # Bowel Movements 1 ABP, PAP, CO, CI - Last Documented Arterial Blood Pressure 150/74 - Exam Gen: intubated mechanically ventilated, sedated, obese Head: Atraumatic normocephalic HEENT: PERRLA, EOMI, nonicteric no neck masses no JVD CVS: Distant S1-S2, no S3 gallop Respiratory: Crackles at the bases, no rhonchi no wheezes GI: soft nontender no rebound no guarding, positive bowel sounds. : no suprapubic tenderness, no CVA tenderness MSK/Derm: No rashes. Skin is dry. And warm Neuro: Could not assess patient is sedated Psych: Could not assess. - Labs CBC & Chem 7: 07/05/24 04:00 07/05/24 04:00 Labs: Abnormal Lab Results - Last 24 Hours (Table) 07/04/24 07/05/24 07/05/24 Range/Units 23:26 04:00 04:00 RBC 3.14 L (3.80-5.40) m/uL Hgb 9.8 L (11.4-16.0) gm/dL Hct 30.8 L (34.0-46.0) % ABG pH (7.35-7.45) ABG pO2 (83-108) mmHg ABG HCO3 (21-25) mmol/L ABG Total CO2 (19-24) mmol/L Hemoglobin (11.4-16.0) gm/dL Chloride 109 H (98-107) mmol/L Creatinine 0.37 L (0.52-1.04) mg/dL POC Glucose (mg/dL) 115 H (70-110) mg/dL Calcium 8.0 L (8.4-10.2) mg/dL 07/05/24 Range/Units 05:11 RBC (3.80-5.40) m/uL Hgb (11.4-16.0) gm/dL Hct (34.0-46.0) % ABG pH 7.47 H (7.35-7.45) ABG pO2 69 L (83-108) mmHg ABG HCO3 27 H (21-25) mmol/L ABG Total CO2 28 H (19-24) mmol/L Hemoglobin 10.1 L (11.4-16.0) gm/dL Chloride (98-107) mmol/L Creatinine (0.52-1.04) mg/dL POC Glucose (mg/dL) (70-110) mg/dL Calcium (8.4-10.2) mg/dL Assessment and Plan Assessment: Acute respiratory failure, secondary to Wellbutrin overdose which required significant amount of sedation and patient developed respiratory failure requiring intubation and mechanical ventilation and needed to be intubated for protection of her airways as the patient received significant amount of sedation to control her agitation from Wellbutrin overdose. Again patient was intubated to protect her airways. Acute hypoxic respiratory failure secondary to pneumonia which has developed post intubation, on Unasyn Wellbutrin overdose Borderline personality disorder Suicidal attempt Aspiration pneumonia Sepsis secondary to aspiration pneumonia Electrolytes imbalance History of generalized anxiety disorder MSSA pneumonia Plan: Continue ventilatory support, not ready for weaning, patient is still requiring significant amount of sedation and paralysis to adequately ventilate maintain adequate O2 saturation Continue antibiotics /Unasyn mostly for aspiration pneumonia Continue Depakote Continue GI and DVT prophylaxis Continue propofol and Versed, adjust as needed Continue seizure precautions, and continue seizure meds as per neurology on the case Patient does not qualify for any weaning trials today. I spoke to patient's mother regarding tracheostomy and PEG tube placement. Patient mother understands and is agreeable, consent forms signed. Nimbex and fentanyl has been discontinued Pt NPO since midnight, tube feeds are on hold Surgery consulted, note read. Plan for tracheostomy and PEG tube placement today. Patient remains critically ill. Prognosis is guarded.
[2024-07-05 11:25] LABS: Glucose,Whole Blood 82 mg/dL (70-110)
--- NOTE | 2024-07-05 11:37 | P.PN ---
Subjective Progress Note Date: 07/04/24 07/04/2024: Patient was seen for a follow-up. Patient is essentially unchanged. Still on propofol 75, fentanyl 1.5, Versed 15. Patient is off Nimbex. Per nurse report, after the Nimbex was discontinued, patient started becoming restless, and then desaturated. She was on propofol 50 mcg but then the dose was increased to 75 mcg along with higher dose of fentanyl and Versed. No seizure-like activity noticed. 07/03/2024: Patient was seen for a follow-up. Patient is essentially unchanged. Still on propofol 50, fentanyl 0.5, Versed 11 and Nimbex 1.5. No seizure-like activity. 07/02/2024: Patient initially seen by Dr. Jose Angel Mccoy. Please refer to his note for details. Patient is a 28-year-old female came with Wellbutrin overdose. Ingested at least 50 tablets of Wellbutrin. Patient had seizure-like activity and is on Depakote, maxed on Versed and propofol. 2 EEGs have been negative. Patient was seen for follow-up. Patient continues to be intubated, sedated on propofol 50 mcg/kg/min. Also on fentanyl 0.5 mcg/kg/h and Versed 11 mg/h. Patient also on Nimbex 1 mg/kg/min. Per nursing report, patient became acutely agitated, tried to sit up, vomited, and then aspirated really bad. Patient is on antibiotics. No seizure-like activity has been noticed since patient is on Depakote. Patient is on maximal dose of Versed and propofol. Patient is also on thiamine 100 mg IV daily. Patient was given phenobarbital x 1 dose as recommended by the poison control. Some of the workup at this hospital visit consisted of: White blood cell is within normal limits Level is for 96 Calcium is 6.1 and ionized calcium is 4.7 Magnesium is 1.2 POC glucose is 56 and repeated is in the low 100s. Sodium is within normal limits UDS is positive for benzo as well as marijuana. Routine EEG on 06/26/2024: Is abnormal. The background slowing is suggestive of mild encephalopathy likely due to toxic-metabolic derragement as well as medication use (IV Propofol, Versed and Ativan). Otherwise, no focal slowing, epileptiform discharges or seizures. CT head: No acute intracranial hemorrhage or midline shift is seen. Vauge areas of low attenuation in the bilateral cerebellar hemispheres slightly more prominent on the right are identified. Ischemic injury is in the differential. Other etiologies not excluded. I personally reviewed CT and I personally could not rule out artifact as well. Repeat CT of the head is reported as no acute intracranial process. No significant interval change from the comparison. Repeat EEG: Is abnormal. The background slowing is suggestive of severe encepha lopathy. Severe encephalopathy is likely due to toxic metabolic derangement as well as medication induced. The diffuse suppression is likely due to medication induced (Versed as well as Ativan and propofol). Otherwise there is no focal slowing, OptiForm discharge or seizure on the EEG. Patient probably Objective - Vital Signs Vital signs: Vital Signs Temp 98.4 F 07/04/24 12:00 Pulse 93 07/04/24 15:00 Resp 21 07/04/24 15:00 BP 134/87 07/04/24 15:00 Pulse Ox 95 07/04/24 15:00 FiO2 65 07/04/24 16:08 Intake & Output 07/03/24 07/04/24 07/04/24 18:59 06:59 18:59 Intake Total 4577.951 1058.338 2031.465 Output Total 509 610 570 Balance 1971.025 5778.338 1461.465 Weight 134.1 kg 138.4 kg Intake: IV 875 825 8973 0.9 @ KVO 120 110 90 Ampicillin-Sulbactam 3 gm 100 200 200 In Sodium Chloride 0.9% 100 ml @ 200 mls/hr IVPB Q6HR [facility] Rx#:[id number] Anidulafungin 200 mg In 200 Sodium Chloride 0.9% 200 ml @ 84 mls/hr IVPB ONCE ONE Rx#:[id number] Dextrose 5%-0.9% NaCl 1, 600 600 550 000 ml @ 50 mls/hr IV . Q20H [facility] Rx#:[id number] Invasive Line 3 60 a-line 3ml 36 36 33 Intake, IV Titration 618.120 557.338 588.465 Amount Cisatracurium 200 mg In 165.224 162.997 258.244 Sodium Chloride 0.9% 180 ml @ 1 MCG/KG/MIN 7.728 mls/hr IV .Q24H [facility] Rx#: [id number] Midazolam HCl 50 mg In 133.650 143.916 141.267 Sodium Chloride 0.9% 40 ml @ 1 MG/HR 1 mls/hr IV .Q24H [facility] Rx#:[id number] fentaNYL (PF). 1,000 mcg 10.733 In Sodium Chloride 0.9% 80 ml @ 0.5 MCG/KG/HR 6. 44 mls/hr IV .[id number] [facility] Rx#:[id number] propofoL 1,000 mg In 319.246 250.425 178.221 Empty Bag 1 bag @ 15 MCG/ KG/MIN 9.846 mls/hr IV . [id number] [facility] Rx#:[id number] Oral 50 Tube Feeding 240 240 220 Other 90 90 Output: Urine 509 610 570 Other: Voiding Method Indwelling Catheter Indwelling Catheter # Bowel Movements 1 ABP, PAP, CO, CI - Last Documented Arterial Blood Pressure 99/89 - Exam Exam limited, as patient is intubated, sedated and on Nimbex. Patient completely unresponsive. Exam limited due to being on medications as mentioned above - Labs CBC & Chem 7: 07/05/24 04:00 07/05/24 04:00 Labs: Abnormal Lab Results - Last 24 Hours (Table) 07/04/24 07/04/24 07/04/24 Range/Units 04:18 04:18 05:10 RBC 3.15 L (3.80-5.40) m/uL Hgb 9.5 L (11.4-16.0) gm/dL Hct 31.5 L (34.0-46.0) % MCHC 30.2 L (31.0-37.0) g/dL ABG pO2 73 L (83-108) mmHg ABG HCO3 27 H (21-25) mmol/L ABG Total CO2 28 H (19-24) mmol/L Hemoglobin 9.6 L (11.4-16.0) gm/dL Chloride 109 H (98-107) mmol/L Creatinine 0.42 L (0.52-1.04) mg/dL Glucose 104 H (74-99) mg/dL Calcium 7.8 L (8.4-10.2) mg/dL Microbiology - Last 24 Hours (Table) 06/28/24 14:46 Blood Culture - Final Blood 06/28/24 14:31 Blood Culture - Final Blood Assessment and Plan Assessment: This is a 28-year-old woman with a history of borderline personality disorder who presented emergency department because of a suicidal attempt by taking multiple Wellbutrin tablets. During this hospital visit the patient is agitated, restless tachycardic hypertensive requiring Ativan, Librium Benadryl and Haldol. She was intubated on ventilator and she required IV propofol Versed and when was weaned down nurse felt maybe there was a seizure-like activity but upon asking the nurse it seems that the patient was having tremor and no convulsion Questionable few episode of seizure-like activity: Unsure if patient is having withdrawing symptoms. If she did have a seizure its likely provoked due to her metabolic derangement and perhaps due to lowering seizure threshold from Wellbutrin. She had 2 EEG so far and negative for seizure or discharges. Is on High dose Versed and Propofol and is on Depakote. Metabolic encephalopathy, severe degree Suicidal attempt Hypoglycemia Hypomagnesium History of borderline personality disorder Plan: * Repeat CT head performed on 06/29/2024, which revealed no acute intracranial process. * EEG 07/04/2024 was abnormal due to background slowing of moderate to severe degree. This is suggestive of generalized cerebral dysfunction as can be seen with toxic metabolic encephalopathy or related to diffuse structural brain abnormality. Clinical correlation is recommended. No obvious epileptiform activity was seen. When compared to the EEG from 06/29/2024, the intermittent background suppression seen in the previous study has resolved, but now has replaced with diffuse high amplitude theta and delta slowing as mentioned above. Follow-up EEG recommended, if clinically indicated. * Patient is on Valproic acid 500 mg twice daily which helps with the seizures as well as the mood * Seizure precaution and pads * Psychiatry is consulted * Please avoid any further hypoglycemia and will defer correction of the electrolyte imbalance to primary and ICU team. * Will defer the rest of the medical management to primary other specialist * Patient is scheduled for tracheostomy and PEG tube placement in the morning 07/05/2024. * Plan discussed with the ICU nurse. * Prognosis is guarded.
[2024-07-05] MEDS ORDERED: ROCURONIUM 10 MG/ML (5 ML VIAL) IV ONE (13:40)
[2024-07-05] MEDS ORDERED: fentaNYL (PF) 50 MCG/ML 2 ML AMP ONE (13:40)
[2024-07-05] MEDS ORDERED: MIDAZOLAM 2 MG/2 ML VIAL ONE (13:40)
[2024-07-05] MEDS: LACTATED RINGERS 1,000 ML IV ONE (13:53)
--- NOTE | 2024-07-05 14:50 | P.PN ---
Subjective Progress Note Date: 07/05/24 28 year old F with PMH of anxiety and borderline personality disorder on Wellbutrin presented after intentional ingestion of Wellbutrin. Patient is psychotic at the time my evaluation does not provide reliable history. According to ER provider signout as well as chart review, patient ingested somewhere between 50-90 extended release Wellbutrin tablets and an overdose attempt. Patient is clearly agitated, tachycardic at the time my evaluation. Upon arrival patient was afebrile, 148/96, heart rate 83. Patient subsequently received activated charcoal, was started on IV fluids, and given a total of 7 mg of Ativan while on continuous telemetry, with heart rates increasing to the 130s to 140s. The ER provider did contact poison control control who recommended medical monitoring until patient is stable for transfer to the mental health unit. Review of lab work shows normal CBC, CO2 of 20, ALT of 91, negative troponin, normal lactic acid, negative salicylate level, alcohol level, Tylenol level. Initial EKG shows normal sinus rhythm with a short NV interval and right axis deviation. Patient was admitted to the cardiac selective floor with telemetry, with low threshold for ICU escalation. Received multiple doses of Ativan + Librium, remained agitated, intubated on 06/27. Concerns for aspiration on 06/28, started on Zosyn with Vancomycin added for staph sputum Cx. IV consulted, switched to Unasyn on 06/29. Concerns for seizures, started on Depakote, Neurology consulted. CT head showed no acute hemorrhage, areas of low-attenuation in the bilateral cerebellar hemisphere slightly more prominent on the right, per neurology, could be artifact. EEG done in was abnormal, showed background slowing suggestive of mild encephalopathy likely due to toxic metabolic derangement as well as m edication use, no epileptiform discharges, seizures. Poison control recommended phenobarbital 570 mg IV x1 on 06/29. Difficulty with extubation, CTA chest 07/02 showed no PE, multifocal PNA, cardiomegaly with small pleural effusions. Plan is for trach/PEG. 07/04 Patient was seen and examined. Intubated. Sedation and paralytics include Nimbex at 2 mcg/kg/hr, Fentanfyl at 0.5 mcg/kg/hr, Propofol at 50 mcg/kg/hr, and Midazolam at 11 mg/hr. Vent settings include rate 16, tidal volume 500, FiO2 60% with PEEP of 12. Antibiotics include Unasyn 3g IV TID. Currently on D5W at 50 cc/hr. CBC, BMP significant for RBC 3.15, Hg 9.5 Hct 31.5, Cl 109, Cr 0.42, glu 104, Ca 7.8. ABG pH 7.43, pCO2 41, pO2 73 with FiO2 60%. CXR bibasilar airspace opacities. 07/05 Patient was seen and examined. Intubated. Nimbex and Fentanfyl weaned off. Currently on Propofol at 75 mcg/kg/hr, and Midazolam at 15 mg/hr. Vent settings include rate 16, tidal volume 500, FiO2 60% with PEEP of 12. Antibiotics include Unasyn 3g IV TID. Anidulafungin 100 mg IV QD started by ID today. Currently on D5W at 50 cc/hr. CBC, BMP significant for RBC 3.14, Hg 9.8 Hct 30.8, Cl 109, Cr 0.37, Ca 8. ABG pH 7.47, pCO2 37, pO2 69 with FiO2 60%. CXR shows persistent bibasilar airspace opacities. Plans for trach and PEG today. General: Intubated. Obese. Derm: warm, dry Head: atraumatic, normocephalic, symmetric Eyes: no lid lag, anicteric sclera Mouth: no lip lesion, mucus membranes moist Cardiovascular: S1S2 reg, no murmur Lungs: Bilateral rhonchi, no rales , no accessory muscle use Ext: no gross muscle atrophy, no edema, no contractures Neuro: Unable to determine Psych: Unable to determine Based on my assessment of this patient, this patient meets a high complexity level of care. Acute respiratory failure s/p intubation for airway protection 06/27: CTA chest negative for PE but does show multifocal PNA with cardiomegaly and small pleural effusions. Plans for trach and PEG today. Sputum culture growing Staph aureus: Unasyn as below. Sepsis likely secondary to aspiration pneumonia: Continue Unasyn 3g IV TID per ID recommendations. Tylenol 650 mg PO Q6H PRN fever. Elevated HOB. Aspiration precautions. Vent management per Pulmonary. Acute metabolic encephalopathy due to below: EEG shows encephalopathy. CT head 06/29 no acute process. Continue Valproic acid 500 mg PO BID. Seizure precautions. Neurology on board. Intentional overdose with Wellbutrin Iron def anemia: Iron level of 9. Defer IV iron while treating active infection. Monitor Hg. Transfuse if Hg < 7. Constipation: Miralax 17g PO QHS. Lactulose 20g PO QD PRN. Anxiety and Borderline personality disorder: Pyschiatry on board. Resolved: Metabolic acidosis, Hypokalemia, Hypomagnesemia CODE STATUS: FULL CODE. DVT Prophylaxis: Heparin SQ GI Prophylaxis: Protonix IV Designated medical POA if patient is not able to make medical decisions for themselves: I have reviewed the following business analyst consultant notes: Pulmonary, Surgery. I have reviewed the results of the following tests: As above. I have ordered the following tests: I have discussed the care of this patient with the following independent historian: I have independently interpreted the following test below: I have discussed the management of this patient with the following physician: Objective - Vital Signs Vital signs: Vital Signs Temp 98.0 F 07/05/24 08:00 Pulse 60 07/05/24 11:00 Resp 16 07/05/24 11:00 BP 131/84 07/05/24 11:00 Pulse Ox 92 L 07/05/24 11:00 FiO2 60 07/05/24 11:27 Intake & Output 07/04/24 07/05/24 07/05/24 18:59 06:59 18:59 Intake Total 2327.465 1577.908 962.793 Output Total 875 880 525 Balance 1452.465 697.908 437.793 Weight 139.4 kg Intake: IV 1289 793 681 0.9 @ KVO 110 110 70 Ampicillin-Sulbactam 3 gm 200 200 100 In Sodium Chloride 0.9% 100 ml @ 200 mls/hr IVPB Q6HR [facility] Rx#:[id number] Anidulafungin 100 mg In 100 Sodium Chloride 0.9% 100 ml @ 84 mls/hr IVPB DAILY @1200 [facility] Rx#:[id number] Anidulafungin 200 mg In 200 Sodium Chloride 0.9% 200 ml @ 84 mls/hr IVPB ONCE ONE Rx#:[id number] Dextrose 5%-0.9% NaCl 1, 650 450 350 000 ml @ 50 mls/hr IV . Q20H [facility] Rx#:[id number] Invasive Line 3 90 Invasive Line 5 20 Invasive Line 6 20 a-line 3ml 39 33 21 Intake, IV Titration 688.465 654.908 251.793 Amount Cisatracurium 200 mg In 258.244 Sodium Chloride 0.9% 180 ml @ 1 MCG/KG/MIN 7.728 mls/hr IV .Q24H [facility] Rx#: [id number] Midazolam HCl 200 mg In 166.5 Sodium Chloride 0.9% 160 ml @ 11 MG/HR 11 mls/hr IV .[id number] [facility] Rx#: [id number] Midazolam HCl 50 mg In 141.267 Sodium Chloride 0.9% 40 ml @ 1 MG/HR 1 mls/hr IV .Q24H [facility] Rx#:[id number] fentaNYL (PF) 2,500 mcg 117.745 In Sodium Chloride 0.9% 200 ml @ 1.5 MCG/KG/HR 19 .32 mls/hr IV .[id number] [facility] Rx#:[id number] fentaNYL (PF). 1,000 mcg 10.733 In Sodium Chloride 0.9% 80 ml @ 0.5 MCG/KG/HR 6. 44 mls/hr IV .[id number] [facility] Rx#:[id number] propofoL 1,000 mg In 278.221 370.663 251.793 Empty Bag 1 bag @ 15 MCG/ KG/MIN 9.846 mls/hr IV . [id number] [facility] Rx#:[id number] Tube Feeding 260 100 0 Other 90 30 30 Output: Urine 675 880 425 Stool 200 100 Other: Voiding Method Indwelling Catheter Indwelling Catheter # Bowel Movements 1 0 ABP, PAP, CO, CI - Last Documented Arterial Blood Pressure 126/84 - Labs CBC & Chem 7: 07/05/24 04:00 07/05/24 04:00 Labs: Abnormal Lab Results - Last 24 Hours (Table) 07/04/24 07/05/24 07/05/24 Range/Units 23:26 04:00 04:00 RBC 3.14 L (3.80-5.40) m/uL Hgb 9.8 L (11.4-16.0) gm/dL Hct 30.8 L (34.0-46.0) % ABG pH (7.35-7.45) ABG pO2 (83-108) mmHg ABG HCO3 (21-25) mmol/L ABG Total CO2 (19-24) mmol/L Hemoglobin (11.4-16.0) gm/dL Chloride 109 H (98-107) mmol/L Creatinine 0.37 L (0.52-1.04) mg/dL POC Glucose (mg/dL) 115 H (70-110) mg/dL Calcium 8.0 L (8.4-10.2) mg/dL 07/05/24 Range/Units 05:11 RBC (3.80-5.40) m/uL Hgb (11.4-16.0) gm/dL Hct (34.0-46.0) % ABG pH 7.47 H (7.35-7.45) ABG pO2 69 L (83-108) mmHg ABG HCO3 27 H (21-25) mmol/L ABG Total CO2 28 H (19-24) mmol/L Hemoglobin 10.1 L (11.4-16.0) gm/dL Chloride (98-107) mmol/L Creatinine (0.52-1.04) mg/dL POC Glucose (mg/dL) (70-110) mg/dL Calcium (8.4-10.2) mg/dL
[2024-07-05 15:51] LABS: Glucose,Whole Blood 99 mg/dL (70-110)
[2024-07-05 17:55] LABS: Glucose,Whole Blood 93 mg/dL (70-110)
[2024-07-05] MEDS: VALPROATE SODIUM 250 MG in SODIUM CHLORIDE 0.9% 100 ML IVPB SCH (18:30)
[2024-07-06 00:35] LABS: Glucose,Whole Blood 62 mg/dL (70-110)
[2024-07-06 01:14] LABS: Glucose,Whole Blood 111 mg/dL (70-110)
[2024-07-06 05:00] LABS: ABG Base Excess 2.4 mmol/L; ABG HCO3 25 mmol/L (21-25); ABG Oxygen Saturation 91.8 % (94-97); ABG PCO2 32 mmHg (35-45); ABG PH 7.51 (7.35-7.45); ABG PO2 62 mmHg (83-108); ABG TCO2 26 mmol/L (19-24); Allen Test Performed? Yes
[2024-07-06 06:04] LABS: Glucose,Whole Blood 66 mg/dL (70-110)
[2024-07-06 06:36] LABS: Glucose,Whole Blood 79 mg/dL (70-110)
[2024-07-06 06:46] LABS: African American GFR (CKD) >90 (>60 ml/min/1.73 sqM); Anion Gap 7 mmol/L; Blood Urea Nitrogen 12 mg/dL (7-17); Calcium 8.2 mg/dL (8.4-10.2); Carbon Dioxide 23 mmol/L (22-30); Chloride 110 mmol/L (98-107); Glucose 83 mg/dL (74-99); Non-African American GFR(CKD) >90 (>60 ml/min/1.73 sqM); Potassium 3.8 mmol/L (3.5-5.1); Sodium 140 mmol/L (137-145)
[2024-07-06 06:48] LABS: Basophils # (A) 0.1 k/uL (0-0.2); Basophils % (A) 1 %; Eosinophils % (A) 0 %; HCT 39.2 % (34.0-46.0); HGB 12.1 gm/dL (11.4-16.0); Hypochromasia Marked; Lymphocytes # (A) 1.8 k/uL (1.0-4.8); Lymphocytes % (A) 18 %; MCH 31.6 pg (25.0-35.0); MCHC 30.9 g/dL (31.0-37.0); MCV 102.5 fL (80.0-100.0); Macrocytosis Slight; Mean Platelet Volume 9.7; Monocytes # (A) 0.7 k/uL (0-1.0); Monocytes % (A) 6 %; Neutrophils # (A) 7.7 k/uL (1.3-7.7); Neutrophils % (A) 74 %; Platelet Count 230 k/uL (150-450); RBC 3.82 m/uL (3.80-5.40); RDW 13.7 % (11.5-15.5); WBC 10.4 k/uL (3.8-10.6)
--- NOTE | 2024-07-06 07:15 | XR ---
EXAMINATION TYPE: XR chest 1V portable DATE OF EXAM: 07/06/2024 4:25 AM COMPARISON: 07/05/2024 CLINICAL INDICATION: Female, 28 years old with history of mechanical ventilation; [facility] TECHNIQUE: XR chest 1V portable Frontal view of the chest. FINDINGS: Lungs/Pleura: There is no evidence of pleural effusion, focal consolidation, or pneumothorax. Pulmonary vascularity: Unremarkable. Heart/mediastinum: Cardiomediastinal silhouette is unremarkable. Musculoskeletal: No acute osseous pathology. Other findings: None Lines/Tubes: Tracheostomy cannula tip projecting over the trachea. IMPRESSION: Improved aeration of the lungs with persistent basilar airspace opacities. [facility], , 07/06/2024 7:12 AM
[2024-07-06] MEDS: NYSTATIN 100,000 UNIT/GM POWD 15 GM TOPICAL SCH (08:27)
[2024-07-06] MEDS: POTASSIUM CHLORIDE 10 MEQ in WATER FOR INJECTION 1 100ML.BAG IVPB SCH (08:28)
[2024-07-06] MEDS ORDERED: LORazepam 2 MG/ML INJ IV PRN (09:04)
--- NOTE | 2024-07-06 10:04 | P.PN ---
Subjective Progress Note Date: 07/06/24 This is a 28-year-old female with history of borderline personality disorder, presented yesterday to the ER with intentional suicidal attempt by taking multiple Wellbutrin tablets. According to the chart patient may have taken about 30 tablets. Patient stated to the ER physician that she does not want to live like this anymore, and she took many tablets of Wellbutrin. This was obviously a suicidal attempt. Patient received activated charcoal, patient was admitted to the medical floor, however this morning patient was becoming more and more agitated and restless, becoming more lightheaded, patient was getting quite tachycardic, and hypertensive. Has been receiving Ativan and Librium overnight, rapid response team responded to the patient this morning and she received additional 8 mg of Ativan, 50 mg of Benadryl and 5 mg of Haldol. Continued to be agitated and requiring 4 point restraints. At this point patient was intubated, placed on propofol drip and Versed drip, transferred to the ICU, and I saw her on consultation upon arrival. Patient required lines placement including a right femoral triple-lumen catheter and right radial arterial line which was done on emergency basis as the patient had very poor peripheral IV access. Patient was intubated and mechanically ventilated, she is on assist-control rate of 16 tidal volume 450 FiO2 50% and PEEP of 5 ABG showed a pO2 of 364 pCO2 of 39 pH of 7.29 she received 1 amp of bicarb. Patient was on propofol at 50 mcg/kg/min Versed at 3 mg/h IV fluid 0.9 at 75 cc/h and she is on the usual ICU protocol for GI and DVT prophylaxis she is also on ventilatory support, and will address nutritional support later today or tomorrow. CBC s howed WBC of 6.3 hemoglobin 12.4 electrolytes showed low potassium of 3.0 being addressed accordingly, labs were all reviewed, test was negative. Drug screen showed positive for benzodiazepines and positive for marijuana. Otherwise was negative. Patient was evaluated today on 06/27/2024, remains in the ICU, intubated and mechanically ventilated. Patient is on assist-control rate of 16 tidal volume 450 FiO2 40% PEEP of 5 ABG showed a pO2 of 114 pCO2 38 pH of 7.43. Patient remains on propofol at 50 mcg/kg/min she is also on Versed at 5 mg/h and earlier this morning the patient developed low urine output, and low blood pressure, she received multiple fluid boluses about 3 L, and she had to be placed on norepinephrine at 0.01 mcg/kg/min, I feel the hypotension is most likely related to excessive sedation, and her poor urine output is secondary to low blood pressure. Today I recommended that we cut down on her sedation and hopefully try to transition the patient to Precedex if possible. Apparently this was attempted but the patient woke up suddenly and vomited, and was noted to be restless and agitated has recommended that she goes back on Versed and propofol and the dose to be titrated. Patient has not had any seizure activity, she remains on GI and DVT prophylaxis, heparin subcu, remains on seizure precautions, labs today show WBC count of 4.9 hemoglobin 10.8, electrolytes were noted to be normal renal profile is normal creatinine 0.68 CPK elevated at 508 and this is very related to her recent seizure. Chest x-ray continues to show bibasilar atelectasis, doubt infiltrate. Although patient is set up for aspiration. The chest x-ray is not quite impressive to consider starting empiric antibiotics. Patient was seen today on 06/28/2024, patient remains in the ICU, intubated and mechanically ventilated, she is on assist-control rate of 16 tidal volume 400 F iO2 50% and PEEP of 5. Patient had an earlier blood gas on 40% FiO2 which showed a pO2 of 54 pCO2 29 pH of 7.50 and apparently the gas was done earlier shortly after she was witnessed to have an aspiration episode as she woke up and became agitated, she aspirated and developed right lower lobe atel ectasis/infiltrate and possibly a small right-sided pleural effusion hence her FiO2 was increased to 50%. Patient is on propofol at 50 mcg/kg/min, Versed and 13 mg/h norepinephrine at 0.02 mcg/kg/min vital HP at 40/45 and IV fluid 0.9 normal saline at 75 cc/h. WBC count is 7.6 hemoglobin is 11.2, basic metabolic profile is relatively normal however her bicarb is 15 potassium is 2.8, anion gap is 6, and her creatinine kinase is 496. Sputum cultures today are showing presumptive Staph aureus, patient was placed earlier today on Zosyn and now I will go ahead and add vancomycin. Patient was seen today on 06/29/2024, patient remains in the ICU, intubated and mechanically ventilated, continues to have intermittent episodes of seizure-like activities although the patient is maximized on propofol at 50 mcg/kg/min on Versed at 15 mg/h patient is requiring norepinephrine at 0.04 mcg/kg/min she is on 0.9 normal saline at 75 cc/h and vital HP at 45 cc/h. CT of the head showed some questionable ischemic injury being addressed by neurology, and recommending eventually MRI. Patient remains on Zosyn and vancomycin for aspiration pneumonia and positive sputum for MRSA. Remains on assist-control rate of 16 tidal volume 400 FiO2 50% and PEEP of 5 ABG showed a pO2 of 70 pCO2 30 pH of 7.42. Hence no changes were made in vent settings. Infectious disease was consulted for her positive Staph aureus in the sputum in the meantime we will continue with vancomycin and Zosyn. Patient clearly had aspiration pneumonia chest x-ray is consistent with aspiration pneumonia. At this point in time the patient is not ready for any weaning as she gets extremely restless and agitated and again she has these episodes of seizure-like activities, Poison control recommended phenobarbital. Patient will be given a dose of phenobarbital x 1. Labs today show WBC is 14.3 hemoglobin 11.2, basic metabolic profile is normal electrolytes are normal bicarb is a bit low at 19 renal profile is normal. CPK is coming down to 302. Patient was seen today on 06/30/2024, remains in the ICU, remains intubated and mechanically ventilated, she is on assist-control rate of 16 tidal volume 400 FiO2 60% and PEEP up to 10. ABG showed a pO2 of 96 pCO2 34 pH of 7.40 her PEEP was at 5 prior to this blood gas, and I increased the PEEP up to 10. Patient remains on Versed at 15 mg/h patient is also on propofol at 75 mg/kg/min norepinephrine is presently on hold patient is receiving fluid at 75 cc/h she is also on vital 20/20 patient is now on Unasyn, and her vancomycin was discontinued because the sputum was positive for MSSA and not MRSA. Urine output is adequate about 50 to 60 cc/h patient received 1 dose of phenobarbital yesterday for extreme agitation, and questionable seizures, neurology has the patient now on Depakote. Overall the patient is not making much improvement, her chest x-ray continues to show worsening of her aspiration pneumonia. And her FiO2 requirement remains relatively high, PEEP was increased today up to 10. Labs today showed WBC count of 12.1 hemoglobin 9.9. Platelets are 191. Basic metabolic profile is normal bicarb is 21 BUN is 6 creatinine 0.45 CPK is down to 248. Patient is now on Unasyn, heparin subcu, Ativan as needed, propofol and Versed, pantoprazole, she received 1 dose of phenobarbital, patient is also receiving valproic acid and Tigan. She is also receiving thiamine Seen today on 07/01/2024, patient remains about the same, remains critically ill, remains intubated mechanically ventilated, on assist-control rate of 16 tidal volume 400 FiO2 60% PEEP of 10 ABG remains marginal with a pO2 of 72 pCO2 34 pH of 7.40. Still requiring significant amount of sedation including Versed at 14 mg/h, norepinephrine at 0.02 presently on hold, she is on propofol at 75 mcg/kg/min. , IV fluids 0.9 normal saline at 75 cc/h. Chest x-ray continues to show significant bilateral airspace disease specially right lower lobe and left lower lobe consistent with aspiration pneumonia. Patient remains on antibiotics. WBC count today is 9.8 hemoglobin 9.9. Electrolytes showed low potassium of 3.3 being addressed accordingly, otherwise the patient has normal renal functioning. Remains on nutritional support/enteral feeding. Patient was seen today on 07/02/2024, remains in the ICU, intubated and mechanically ventilated, sedated, and paralyzed. Yesterday the patient continued to have significant agitation and spite of significant sedation including high-dose propofol, and high-dose Versed, she Desaturating frequently, and FiO2 was increased up to 70%, PEEP was increased up to 12, hence I recommended Nimbex to be started, patient was bolused and placed on Nimbex drip. Remains on Nimbex drip at 1 mcg/kg/min, remains on IV fluid at 50 cc/h in the form of D5.9 she is on fentanyl at 0.5 mcg/kg/h Versed is down to 12 mg/h propofol at 50 mcg/kg/min, patient was also placed on Decadron yesterday for her extensive pneumonic process involving both lower lobes, this was felt to be aspiration pneumonia. Her sputum has been positive for MSSA. Patient remains on GI and DVT prophylaxis. Vent settings today on AC rate of 16 tidal volume of 400 was increased to 500 yesterday, FiO2 down to 50% PEEP is 12 her ABG showed a pO2 of 95 pCO2 54 pH of 7.25 and that is when her tidal volume was increased to 500. Patient remains on nutritional support/enteral feeding, today she is not requiring norepinephrine but she has been intermittently on norepinephrine. Urine output is good about 50 to 60 cc/h. Chest x-ray continues show bilateral extensive infiltrates involving right lower lobe and left lower lobe. Labs today WBC count is 10.1 hemoglobin is 10.3 repeat ABG after vent setting changes showed a pO2 of 74 pCO2 42 pH of 7.37 and this is on 50% FiO2. 07/03/2024: This is a 28-year-old female with history of borderline personality disorder admitted to ICU on 06/26 and was subsequently intubated due to acute respiratory failure secondary to Wellbutrin overdose. According to the chart patient may have taken about 30-90 tablets. Patiente was intubtated on 06/26 due to extreme agitation and restlessness. Patient was seen today on 07/02/2024, she remains in ICU mechanically ventilated, sedated, and paralyzed. She is on assist-control at a rate of 16, tidal volume of 500, FiO2 at 70%, PEEP of 12. ABG this morning showing pH of 7.4, pCO2 44, pO2 69. Currently on Nimbex 1.5 mcg/mg/min, propofol 50 mcg/kg/min, fentanyl 0.5mcg/kg/hr, Versed 11 mg/hr, and propofol 50 mcg/kg/min. Intermittently has been on norepinephrine, but is currently not requiring it at this moment. Last weaning trial was on 06/29. Tube nutritional support/enteral feeding vital HP at goal. No overnight events. Chest x-ray showing patchy basilar infiltrates, no change from prior. Remains on Unasyn at 200 MLS/HR IVPB every 6 hours due to aspiration pneumonia. Remains on Decadron 6 mg IVP every 6 hours. Labs: WBC 8.5, Hgb 9.9 1, HCT 33.2, platelet 248, sodium 143, potassium 3.9, BUN 11, creatinine 0.14, glucose 137. Patient seen today on 07/04/2024 in room 260. She remains sedated on mechanical ventilator. She is on volume assist-control, rate 16, tidal volume 500, FiO2 60%, PEEP of 12. Blood gases show pO2 of 73, pCO2 of 41, pH is 7.43. The patient is getting D5.9 at 50 cc an hour, fentanyl drip at 0.5 mcg/kg/h, Versed at 11 mg an hour, propofol at 50 mcg/kg/min, Nimbex at 2.0 mcg/kg/min (which we will discontinue today), and vital HP at 20 cc an hour which is goal. Remains on Unasyn due to MSSA found in sputum culture. Blood cultures showing no growth after 5 days. There are no plans of weaning of mechanical ventilation. She has been on the ventilator since June 26. Spoke with mother regarding tracheostomy and PEG tube placement. Mother is agreeable with continued life support. Surgery has been consulted for tracheostomy and PEG tube placement with plans on have tracheostomy and PEG tube placement on with Dr. Quinteros. CXR showing bibisilar opacities. White count is 7.3, hemoglobin 9.5, hematocrit 31.5, platelet count 266,000. Sodium 140, potassium 4.1, chlorides 109, CO2 26, BUN 14, creatinine 0.42. Glucose is 104. Calcium is 7.8. Labs, x-rays, and all medications are reviewed. Prognosis is guarded. Patient seen today on 07/05/2024 in room 260. She remains on mechanical ventilator. She is on volume assist-control, rate 16, tidal volume 500, FiO2 60%, PEEP of 12. Blood gases show pO2 of 69, pCO2 of 37, pH is 7.47. The patient is getting D5.9 at 50 cc an hour, fentanyl drip discontinued around 4:00am, Versed at 15 mg an hour, propofol at 75 mcg/kg/min, Nimbex removed at 2:30p yesterday, and tube feeds have been on hold since midnight. Remains on Unasyn due to MSSA found in sputum culture. She has also been placed on Eraxis by ID due to vaginal candidiasis. She has been on the ventilator since June 26. Surgery has been consulted and tracheostomy is scheduled for today with Dr Pruett at 11am. CXR showing bibisilar opacities, similar to prior. White count is 7.9, hemoglobin 9.8, hematocrit 30.8, platelet count 286,000. Sodium 140, potassium 4.1, chlorides 109, CO2 24, BUN 11, creatinine 0.37. Glucose is 97. Calcium is 8.0. Labs, x-rays, and all medications are reviewed. Plan is for tracheostomy and PEG tube placement today. Prognosis is guarded. Patient seen today on 07/06/2024 in room 260. She remains on mechanical v entilator. She is on volume assist-control, rate 16, tidal volume 500, FiO2 60%, PEEP of 12. Blood gases show pO2 of 62, pCO2 of 32, pH is 7.51. The patient is getting D5.9 at 50 cc an hour, Versed at 10 mg an hour, propofol at 50 mcg/kg/min, and tube feeds currently on hold, will resume later today. Remains on Unasyn and Eraxis. Will contact ID regarding duration of antibiotic course. She is day one since being placed on trach and PEG tube. ART line was lost yesterday. CXR showing bibisilar opacities, tracheostmy cannula tip projecting over trachea. White count is 7.9, hemoglobin 9.8, hematocrit 30.8, platelet count 286,000. Sodium 140, potassium 3.8, chlorides 110, CO2 23, BUN 12, creatinine 0.48. Glucose is 83. Calcium is 8.2. Labs, x-rays, and all medic ations are reviewed. Plan is to wean off Versed and propofol. Will order Ativan 1mg q6hr prn and 0.5 mg Dilaudid q4hr prn. Prognosis is guarded. Objective - Vital Signs Vital signs: Vital Signs Temp 98.7 F 07/06/24 04:00 Pulse 67 07/06/24 07:00 Resp 24 07/06/24 07:00 BP 144/88 07/06/24 07:00 Pulse Ox 92 L 07/06/24 07:00 FiO2 60 07/06/24 04:07 Intake & Output 07/05/24 07/06/24 07/06/24 18:59 06:59 18:59 Intake Total 2424.216 1780.227 63 Output Total 1410 1620 125 Balance 1014.216 160.227 -62 Weight 140.4 kg Intake: IV 1843 1136 63 0.9 @ KVO 110 120 10 Ampicillin-Sulbactam 3 gm 200 200 In Sodium Chloride 0.9% 100 ml @ 200 mls/hr IVPB Q6HR [facility] Rx#:[id number] Anidulafungin 100 mg In 100 Sodium Chloride 0.9% 100 ml @ 84 mls/hr IVPB DAILY @1200 [facility] Rx#:[id number] Dextrose 5%-0.9% NaCl 1, 550 550 50 000 ml @ 50 mls/hr IV . Q20H [facility] Rx#:[id number] Invasive Line 5 20 Invasive Line 6 30 30 Valproate Sodium 250 mg 100 200 In Sodium Chloride 0.9% 100 ml @ 100 mls/hr IVPB Q6HR [facility] Rx#:[id number] a-line 3ml 33 36 3 Intake, IV Titration 551.216 644.227 Amount Midazolam HCl 200 mg In 194.5 187.684 Sodium Chloride 0.9% 160 ml @ 11 MG/HR 11 mls/hr IV .[id number] [facility] Rx#: [id number] propofoL 1,000 mg In 356.716 456.543 Empty Bag 1 bag @ 15 MCG/ KG/MIN 9.846 mls/hr IV . [id number] [facility] Rx#:[id number] Tube Feeding 0 0 Other 30 0 Output: Urine 1285 1620 125 Stool 100 Estimated Blood Loss 25 Other: Voiding Method Indwelling Catheter Indwelling Catheter # Bowel Movements 0 0 ABP, PAP, CO, CI - Last Documented Arterial Blood Pressure 112/61 - Exam Gen: intubated mechanically ventilated, sedated, obese Head: Atraumatic normocephalic HEENT: PERRLA, EOMI, nonicteric no neck masses no JVD CVS: Distant S1-S2, no S3 gallop Respiratory: Crackles at the bases, no rhonchi no wheezes GI: soft nontender no rebound no guarding, positive bowel sounds. : no suprapubic tenderness, no CVA tenderness MSK/Derm: No rashes. Skin is dry. And warm Neuro: Could not assess patient is sedated Psych: Could not assess. - Labs CBC & Chem 7: 07/06/24 06:08 07/06/24 06:08 Labs: Abnormal Lab Results - Last 24 Hours (Table) 07/06/24 07/06/24 07/06/24 Range/Units 00:33 01:12 04:53 MCV (80.0-100.0) fL MCHC (31.0-37.0) g/dL ABG pH 7.51 H (7.35-7.45) ABG pCO2 32 L (35-45) mmHg ABG pO2 62 L (83-108) mmHg ABG Total CO2 26 H (19-24) mmol/L ABG O2 Saturation 91.8 L (94-97) % Hemoglobin 10.8 L (11.4-16.0) gm/dL Chloride (98-107) mmol/L Creatinine (0.52-1.04) mg/dL POC Glucose (mg/dL) 62 L 111 H (70-110) mg/dL Calcium (8.4-10.2) mg/dL 07/06/24 07/06/24 07/06/24 Range/Units 06:03 06:08 06:08 MCV 102.5 H (80.0-100.0) fL MCHC 30.9 L (31.0-37.0) g/dL ABG pH (7.35-7.45) ABG pCO2 (35-45) mmHg ABG pO2 (83-108) mmHg ABG Total CO2 (19-24) mmol/L ABG O2 Saturation (94-97) % Hemoglobin (11.4-16.0) gm/dL Chloride 110 H (98-107) mmol/L Creatinine 0.48 L (0.52-1.04) mg/dL POC Glucose (mg/dL) 66 L (70-110) mg/dL Calcium 8.2 L (8.4-10.2) mg/dL Assessment and Plan Assessment: Acute respiratory failure, secondary to Wellbutrin overdose which required significant amount of sedation and patient developed respiratory failure requiring intubation and mechanical ventilation and needed to be intubated for protection of her airways as the patient received significant amount of sedation to control her agitation from Wellbutrin overdose. Again patient was intubated to protect her airways. Acute hypoxic respiratory failure secondary to pneumonia which has developed post intubation, on Unasyn Wellbutrin overdose Borderline personality disorder Suicidal attempt Aspiration pneumonia Sepsis secondary to aspiration pneumonia Electrolytes imbalance History of generalized anxiety disorder MSSA pneumonia Plan: Continue ventilatory support, not ready for weaning, patient is still requiring significant amount of sedation and paralysis to adequately ventilate maintain adequate O2 saturation Continue antibiotics /Unasyn mostly for aspiration pneumonia Continue Depakote Continue GI and DVT prophylaxis Continue propofol and Versed, adjust as needed Continue seizure precautions, and continue seizure meds as per neurology on the case Patient does not qualify for any weaning trials today. I spoke to patient's mother regarding tracheostomy and PEG tube placement. Patient mother understands and is agreeable, consent forms signed. Nimbex and fentanyl has been discontinued Status post tracheostomy and PEG tube placement Will wean down on Versed and propofol Ordered IV Ativan q6hr prn and IV Dilaudid 0.5 mg q4hr prn Tube feeds to resume today after 24 hour ingris Will contact ID regarding antibiotic course Patient remains critically ill. Prognosis is guarded.
--- NOTE | 2024-07-06 11:58 | P.PN ---
Subjective Progress Note Date: 07/06/24 SURGICAL PROGRESS NOTE CHIEF COMPLAINT: Intentional overdose HISTORY OF PRESENT ILLNESS: Patient is postop day #1 status post tracheostomy and PEG tube placement. Patient remains in the ICU and on mechanical ventilation. Afebrile. WBC 10.4 Hgb 12.1 PHYSICAL EXAM: VITAL SIGNS: Reviewed. GENERAL: no acute distress. HEENT: Tracheostomy site with small amount of mucus noted ABDOMEN: Soft. Obese. PEG tube site clean dry and intact ASSESSMENT: 1. Acute respiratory failure s/p intubation to protect airway after patient received significant sedation for agitation from Wellbutrin overdose and had an aspiration pneumonia 2. Severe protein calorie malnutrition 3. Suicide attempt with Wellbutrin overdose PLAN: -Consult dietitian to initiate tube feeds this afternoon -Continue ICU management -Continue supportive care Physician Telecommunications Analyst note has been reviewed by physician. Signing provider agrees with the documented findings, assessment, and plan of care. Objective - Vital Signs Vital signs: Vital Signs Temp 99.3 F 07/06/24 08:00 Pulse 75 07/06/24 10:00 Resp 26 H 07/06/24 10:00 BP 141/92 07/06/24 10:00 Pulse Ox 93 L 07/06/24 10:00 FiO2 60 07/06/24 11:10 Intake & Output 07/05/24 07/06/24 07/06/24 18:59 06:59 18:59 Intake Total 2424.216 1780.227 481.266 Output Total 1410 1620 1020 Balance 1014.216 160.227 -538.734 Weight 140.4 kg 140.4 kg Intake: IV 1843 1136 322 0.9 @ KVO 110 120 50 Ampicillin-Sulbactam 3 gm 200 200 In Sodium Chloride 0.9% 100 ml @ 200 mls/hr IVPB Q6HR [facility] Rx#:[id number] Anidulafungin 100 mg In 100 Sodium Chloride 0.9% 100 ml @ 84 mls/hr IVPB DAILY @1200 [facility] Rx#:[id number] Dextrose 5%-0.9% NaCl 1, 550 550 250 000 ml @ 50 mls/hr IV . Q20H [facility] Rx#:[id number] Invasive Line 5 20 Invasive Line 6 30 30 10 Valproate Sodium 250 mg 100 200 In Sodium Chloride 0.9% 100 ml @ 100 mls/hr IVPB Q6HR [facility] Rx#:[id number] a-line 3ml 33 36 12 Intake, IV Titration 551.216 644.227 159.266 Amount Midazolam HCl 200 mg In 194.5 187.684 61.900 Sodium Chloride 0.9% 160 ml @ 11 MG/HR 11 mls/hr IV .[id number] [facility] Rx#: [id number] propofoL 1,000 mg In 356.716 456.543 97.366 Empty Bag 1 bag @ 15 MCG/ KG/MIN 9.846 mls/hr IV . [id number] [facility] Rx#:[id number] Tube Feeding 0 0 Other 30 0 Output: Urine 1285 1620 1020 Stool 100 Estimated Blood Loss 25 Other: Voiding Method Indwelling Catheter Indwelling Catheter Indwelling Catheter # Bowel Movements 0 0 ABP, PAP, CO, CI - Last Documented Arterial Blood Pressure 112/61 - Labs CBC & Chem 7: 07/06/24 06:08 07/06/24 06:08 Labs: Abnormal Lab Results - Last 24 Hours (Table) 07/06/24 07/06/24 07/06/24 Range/Units 00:33 01:12 04:53 MCV (80.0-100.0) fL MCHC (31.0-37.0) g/dL ABG pH 7.51 H (7.35-7.45) ABG pCO2 32 L (35-45) mmHg ABG pO2 62 L (83-108) mmHg ABG Total CO2 26 H (19-24) mmol/L ABG O2 Saturation 91.8 L (94-97) % Hemoglobin 10.8 L (11.4-16.0) gm/dL Chloride (98-107) mmol/L Creatinine (0.52-1.04) mg/dL POC Glucose (mg/dL) 62 L 111 H (70-110) mg/dL Calcium (8.4-10.2) mg/dL 07/06/24 07/06/24 07/06/24 Range/Units 06:03 06:08 06:08 MCV 102.5 H (80.0-100.0) fL MCHC 30.9 L (31.0-37.0) g/dL ABG pH (7.35-7.45) ABG pCO2 (35-45) mmHg ABG pO2 (83-108) mmHg ABG Total CO2 (19-24) mmol/L ABG O2 Saturation (94-97) % Hemoglobin (11.4-16.0) gm/dL Chloride 110 H (98-107) mmol/L Creatinine 0.48 L (0.52-1.04) mg/dL POC Glucose (mg/dL) 66 L (70-110) mg/dL Calcium 8.2 L (8.4-10.2) mg/dL
[2024-07-06 12:13] LABS: Glucose,Whole Blood 91 mg/dL (70-110)
--- NOTE | 2024-07-06 12:57 | P.PN ---
Subjective Progress Note Date: 07/06/24 28 year old F with PMH of anxiety and borderline personality disorder on Wellbutrin presented after intentional ingestion of Wellbutrin. Patient is psychotic at the time my evaluation does not provide reliable history. According to ER provider signout as well as chart review, patient ingested somewhere between 50-90 extended release Wellbutrin tablets and an overdose attempt. Patient is clearly agitated, tachycardic at the time my evaluation. Upon arrival patient was afebrile, 148/96, heart rate 83. Patient subsequently received activated charcoal, was started on IV fluids, and given a total of 7 mg of Ativan while on continuous telemetry, with heart rates increasing to the 130s to 140s. The ER provider did contact poison control control who recommended medical monitoring until patient is stable for transfer to the mental health unit. Review of lab work shows normal CBC, CO2 of 20, ALT of 91, negative troponin, normal lactic acid, negative salicylate level, alcohol level, Tylenol level. Initial EKG shows normal sinus rhythm with a short MT interval and right axis deviation. Patient was admitted to the cardiac selective floor with telemetry, with low threshold for ICU escalation. Received multiple doses of Ativan + Librium, remained agitated, intubated on 06/27. Concerns for aspiration on 06/28, started on Zosyn with Vancomycin added for staph sputum Cx. IV consulted, switched to Unasyn on 06/29. Concerns for seizures, started on Depakote, Neurology consulted. CT head showed no acute hemorrhage, areas of low-attenuation in the bilateral cerebellar hemisphere slightly more prominent on the right, per neurology, could be artifact. EEG done in was abnormal, showed background slowing suggestive of mild encephalopathy likely due to toxic metabolic derangement as well as m edication use, no epileptiform discharges, seizures. Poison control recommended phenobarbital 570 mg IV x1 on 06/29. Difficulty with extubation, CTA chest 07/02 showed no PE, multifocal PNA, cardiomegaly with small pleural effusions. Plan is for trach/PEG. 07/04 Patient was seen and examined. Intubated. Sedation and paralytics include Nimbex at 2 mcg/kg/hr, Fentanfyl at 0.5 mcg/kg/hr, Propofol at 50 mcg/kg/hr, and Midazolam at 11 mg/hr. Vent settings include rate 16, tidal volume 500, FiO2 60% with PEEP of 12. Antibiotics include Unasyn 3g IV TID. Currently on D5W at 50 cc/hr. CBC, BMP significant for RBC 3.15, Hg 9.5 Hct 31.5, Cl 109, Cr 0.42, glu 104, Ca 7.8. ABG pH 7.43, pCO2 41, pO2 73 with FiO2 60%. CXR bibasilar airspace opacities. 07/05 Patient was seen and examined. Intubated. Nimbex and Fentanfyl weaned off. Currently on Propofol at 75 mcg/kg/hr, and Midazolam at 15 mg/hr. Vent settings include rate 16, tidal volume 500, FiO2 60% with PEEP of 12. Antibiotics include Unasyn 3g IV TID. Anidulafungin 100 mg IV QD started by ID today. Currently on D5W at 50 cc/hr. CBC, BMP significant for RBC 3.14, Hg 9.8 Hct 30.8, Cl 109, Cr 0.37, Ca 8. ABG pH 7.47, pCO2 37, pO2 69 with FiO2 60%. CXR shows persistent bibasilar airspace opacities. Plans for trach and PEG today. 07/06 Patient was seen and examined. Intubated. Underwent trach and PEG yesterday. Currently on Propofol at 50 mcg/kg/hr, and Midazolam at 6 mg/hr. Vent settings include rate 16, tidal volume 500, FiO2 60% with PEEP of 12. Antibiotics include Unasyn 3g IV TID. Anidulafungin 100 mg IV QD started by ID 07/05. CBC, BMP sig nificant for MCV 102.5, Cl 110, Cr 0.48, Ca 8.2, glu 66. ABG pH 7.51, pCO2 32, pO2 62 with FiO2 60%. CXR shows persistent bibasilar airspace opacities with tracheostomy. General: Intubated. Obese. Derm: warm, dry Head: atraumatic, normocephalic, symmetric Eyes: no lid lag, anicteric sclera Mouth: no lip lesion, mucus membranes moist Cardiovascular: S1S2 reg, no murmur Lungs: Bilateral rhonchi, no rales , no accessory muscle use Ext: no gross muscle atrophy, no edema, no contractures Neuro: Unable to determine Psych: Unable to determine Based on my assessment of this patient, this patient meets a high complexity level of care. Acute respiratory failure s/p intubation for airway protection 06/27: CTA chest negative for PE but does show multifocal PNA with cardiomegaly and small pleural effusions. Status post PEG/Trach 07/05. Sputum culture growing Staph aureus: Unasyn as below. Sepsis likely secondary to aspiration pneumonia: Continue Unasyn 3g IV TID per ID recommendations. Tylenol 650 mg PO Q6H PRN fever. Elevated HOB. Aspiration precautions. Vent management per Pulmonary. Acute metabolic encephalopathy due to below: EEG shows encephalopathy. CT head 06/29 no acute process. Continue Valproic acid 500 mg PO BID. Seizure precautions. Neurology on board. Intentional overdose with Wellbutrin Iron def anemia: Iron level of 9. Defer IV iron while treating active infection. Monitor Hg. Transfuse if Hg < 7. Constipation: Miralax 17g PO QHS. Lactulose 20g PO QD PRN. Anxiety and Borderline personality disorder: Pyschiatry on board. Resolved: Metabolic acidosis, Hypokalemia, Hypomagnesemia CODE STATUS: FULL CODE. DVT Prophylaxis: Heparin SQ GI Prophylaxis: Protonix IV Designated medical POA if patient is not able to make medical decisions for themselves: I have reviewed the following windows consultant notes: Pulmonary, Surgery. I have reviewed the results of the following tests: As above. I have ordered the following tests: I have discussed the care of this patient with the following independent historian: I have independently interpreted the following test below: CXR I have discussed the management of this patient with the following physician: Objective - Vital Signs Vital signs: Vital Signs Temp 99.6 F 07/06/24 12:00 Pulse 76 07/06/24 12:00 Resp 27 H 07/06/24 12:00 BP 129/86 07/06/24 12:00 Pulse Ox 96 07/06/24 12:00 FiO2 60 07/06/24 12:00 Intake & Output 07/05/24 07/06/24 07/06/24 18:59 06:59 18:59 Intake Total 2424.216 1780.227 648.754 Output Total 1410 1620 1185 Balance 1014.216 160.227 -536.246 Weight 140.4 kg 140.4 kg Intake: IV 1843 1136 392 0.9 @ KVO 110 120 60 Ampicillin-Sulbactam 3 gm 200 200 In Sodium Chloride 0.9% 100 ml @ 200 mls/hr IVPB Q6HR [facility] Rx#:[id number] Anidulafungin 100 mg In 100 Sodium Chloride 0.9% 100 ml @ 84 mls/hr IVPB DAILY @1200 [facility] Rx#:[id number] Dextrose 5%-0.9% NaCl 1, 550 550 300 000 ml @ 50 mls/hr IV . Q20H [facility] Rx#:[id number] Invasive Line 5 20 Invasive Line 6 30 30 20 Valproate Sodium 250 mg 100 200 In Sodium Chloride 0.9% 100 ml @ 100 mls/hr IVPB Q6HR [facility] Rx#:[id number] a-line 3ml 33 36 12 Intake, IV Titration 551.216 644.227 256.754 Amount Midazolam HCl 200 mg In 194.5 187.684 69.133 Sodium Chloride 0.9% 160 ml @ 11 MG/HR 11 mls/hr IV .[id number] [facility] Rx#: [id number] propofoL 1,000 mg In 356.716 456.543 187.621 Empty Bag 1 bag @ 15 MCG/ KG/MIN 9.846 mls/hr IV . [id number] [facility] Rx#:[id number] Tube Feeding 0 0 Other 30 0 Output: Urine 1285 1620 1185 Stool 100 Estimated Blood Loss 25 Other: Voiding Method Indwelling Catheter Indwelling Catheter Indwelling Catheter # Bowel Movements 0 0 ABP, PAP, CO, CI - Last Documented Arterial Blood Pressure 112/61 - Labs CBC & Chem 7: 07/06/24 06:08 07/06/24 06:08 Labs: Abnormal Lab Results - Last 24 Hours (Table) 07/06/24 07/06/24 07/06/24 Range/Units 00:33 01:12 04:53 MCV (80.0-100.0) fL MCHC (31.0-37.0) g/dL ABG pH 7.51 H (7.35-7.45) ABG pCO2 32 L (35-45) mmHg ABG pO2 62 L (83-108) mmHg ABG Total CO2 26 H (19-24) mmol/L ABG O2 Saturation 91.8 L (94-97) % Hemoglobin 10.8 L (11.4-16.0) gm/dL Chloride (98-107) mmol/L Creatinine (0.52-1.04) mg/dL POC Glucose (mg/dL) 62 L 111 H (70-110) mg/dL Calcium (8.4-10.2) mg/dL 07/06/24 07/06/24 07/06/24 Range/Units 06:03 06:08 06:08 MCV 102.5 H (80.0-100.0) fL MCHC 30.9 L (31.0-37.0) g/dL ABG pH (7.35-7.45) ABG pCO2 (35-45) mmHg ABG pO2 (83-108) mmHg ABG Total CO2 (19-24) mmol/L ABG O2 Saturation (94-97) % Hemoglobin (11.4-16.0) gm/dL Chloride 110 H (98-107) mmol/L Creatinine 0.48 L (0.52-1.04) mg/dL POC Glucose (mg/dL) 66 L (70-110) mg/dL Calcium 8.2 L (8.4-10.2) mg/dL
--- NOTE | 2024-07-06 13:20 | P.PN ---
Subjective Progress Note Date: 07/05/24 Principal diagnosis: Reason for follow-up is MSSA/aspiration pneumonia Patient is a 28-year-old female with a past medical history of dependent for reflux, anxiety and depression presenting to the hospital after the patient overdosed on 50-90 Wellbutrin tablets subsequent did have a agitation respiratory distress requiring revision admission to the ICU ID consulted because of concern for aspiration pneumonia. On today's evaluation that is 07/05/2024,the patient continues to be afebrile and the patient remains to be debated on the vent through the trach hemodynam ically stable FiO2 is currently stable at 60% no significant pulmonary secretions with the ET noticed to have some excoriation to groin area. Patient white count 7.8, creatinine is 0.37 Objective - Vital Signs Vital signs: Vital Signs Temp 98.0 F 07/05/24 08:00 Pulse 60 07/05/24 11:00 Resp 16 07/05/24 11:00 BP 131/84 07/05/24 11:00 Pulse Ox 92 L 07/05/24 11:00 FiO2 60 07/05/24 11:27 Intake & Output 07/04/24 07/05/24 07/05/24 18:59 06:59 18:59 Intake Total 2327.465 1577.908 764.589 Output Total 875 880 425 Balance 1452.465 697.908 339.589 Weight 139.4 kg Intake: IV 1289 793 555 0.9 @ KVO 110 110 50 Ampicillin-Sulbactam 3 gm 200 200 100 In Sodium Chloride 0.9% 100 ml @ 200 mls/hr IVPB Q6HR [facility] Rx#:[id number] Anidulafungin 100 mg In 100 Sodium Chloride 0.9% 100 ml @ 84 mls/hr IVPB DAILY @1200 [facility] Rx#:[id number] Anidulafungin 200 mg In 200 Sodium Chloride 0.9% 200 ml @ 84 mls/hr IVPB ONCE ONE Rx#:[id number] Dextrose 5%-0.9% NaCl 1, 650 450 250 000 ml @ 50 mls/hr IV . Q20H [facility] Rx#:[id number] Invasive Line 3 90 Invasive Line 5 20 Invasive Line 6 20 a-line 3ml 39 33 15 Intake, IV Titration 688.465 654.908 179.589 Amount Cisatracurium 200 mg In 258.244 Sodium Chloride 0.9% 180 ml @ 1 MCG/KG/MIN 7.728 mls/hr IV .Q24H [facility] Rx#: [id number] Midazolam HCl 200 mg In 166.5 Sodium Chloride 0.9% 160 ml @ 11 MG/HR 11 mls/hr IV .[id number] [facility] Rx#: [id number] Midazolam HCl 50 mg In 141.267 Sodium Chloride 0.9% 40 ml @ 1 MG/HR 1 mls/hr IV .Q24H [facility] Rx#:[id number] fentaNYL (PF) 2,500 mcg 117.745 In Sodium Chloride 0.9% 200 ml @ 1.5 MCG/KG/HR 19 .32 mls/hr IV .[id number] [facility] Rx#:[id number] fentaNYL (PF). 1,000 mcg 10.733 In Sodium Chloride 0.9% 80 ml @ 0.5 MCG/KG/HR 6. 44 mls/hr IV .[id number] [facility] Rx#:[id number] propofoL 1,000 mg In 278.221 370.663 179.589 Empty Bag 1 bag @ 15 MCG/ KG/MIN 9.846 mls/hr IV . [id number] [facility] Rx#:[id number] Tube Feeding 260 100 0 Other 90 30 30 Output: Urine 675 880 325 Stool 200 100 Other: Voiding Method Indwelling Catheter Indwelling Catheter # Bowel Movements 1 0 ABP, PAP, CO, CI - Last Documented Arterial Blood Pressure 126/84 - Exam GENERAL DESCRIPTION: Middle-age female intubated on the vent RESPIRATORY SYSTEM: Unlabored breathing , decreased breath sounds at bases HEART: S1 S2 regular rate and rhythm , ABDOMEN: Soft , no tenderness EXTREMITIES: No edema feet - Labs CBC & Chem 7: 07/06/24 06:08 07/06/24 06:08 Labs: Abnormal Lab Results - Last 24 Hours (Table) 07/04/24 07/05/24 07/05/24 Range/Units 23:26 04:00 04:00 RBC 3.14 L (3.80-5.40) m/uL Hgb 9.8 L (11.4-16.0) gm/dL Hct 30.8 L (34.0-46.0) % ABG pH (7.35-7.45) ABG pO2 (83-108) mmHg ABG HCO3 (21-25) mmol/L ABG Total CO2 (19-24) mmol/L Hemoglobin (11.4-16.0) gm/dL Chloride 109 H (98-107) mmol/L Creatinine 0.37 L (0.52-1.04) mg/dL POC Glucose (mg/dL) 115 H (70-110) mg/dL Calcium 8.0 L (8.4-10.2) mg/dL 07/05/24 Range/Units 05:11 RBC (3.80-5.40) m/uL Hgb (11.4-16.0) gm/dL Hct (34.0-46.0) % ABG pH 7.47 H (7.35-7.45) ABG pO2 69 L (83-108) mmHg ABG HCO3 27 H (21-25) mmol/L ABG Total CO2 28 H (19-24) mmol/L Hemoglobin 10.1 L (11.4-16.0) gm/dL Chloride (98-107) mmol/L Creatinine (0.52-1.04) mg/dL POC Glucose (mg/dL) (70-110) mg/dL Calcium (8.4-10.2) mg/dL Assessment and Plan (1) Sepsis Current Visit: Yes Status: Acute Code(s): A41.9 - SEPSIS, UNSPECIFIED ORGANISM SNOMED Code(s): 08917566 (2) Pneumonia Current Visit: Yes Status: Acute Code(s): J18.9 - PNEUMONIA, UNSPECIFIED ORGANISM SNOMED Code(s): 540042218 (3) MSSA (methicillin susceptible Staphylococcus aureus) infection Current Visit: Yes Status: Acute Code(s): A49.01 - METHICILLIN SUSCEP STAPH INFECTION, UNSP SITE SNOMED Code(s): 610013628 Plan: 1patient presenting the hospital with drug overdose with subsequent agitation respiratory distress requiring intubation concerning for possible aspiration pneumonia sputum is now growing MSSA in this patient who did have features of sepsis with fever elevated white count and hypotension requiring low-dose pressor support on initial evaluation. 2-patient did have resolution of her fever the patient white count normalized blood culture have been negative so far, sputum is growing MSSA with the patient is being treated with Unasyn 3patient has developed extensive vaginal area candidiasis unable to use Diflucan because of drug interaction currently on Eraxis 4groin area candidiasis advised nystatin powder twice a day Dictation was produced using [employer] dictation software. please excuse any grammatical, word or spelling errors. Time with Patient: Less than 30
--- NOTE | 2024-07-06 13:21 | P.PN ---
Subjective Progress Note Date: 07/06/24 Principal diagnosis: Reason for follow-up is MSSA/aspiration pneumonia Patient is a 28-year-old female with a past medical history of dependent for reflux, anxiety and depression presenting to the hospital after the patient overdosed on 50-90 Wellbutrin tablets subsequent did have a agitation respiratory distress requiring revision admission to the ICU ID consulted because of concern for aspiration pneumonia.The patient is status post tracheostomy and PEG tube placement on 07/05/2024. On today's visit there is 07/06/2024 patient did have a low-grade fever of 99.6 F patient remains to be intubated through the trach FiO2 currently at 60% no significant changes reported by nursing staff counsel did mention that overall pelvic area excoriation has improved. Patient white count is 10.4, creatinine is 0.48 Objective - Vital Signs Vital signs: Vital Signs Temp 99.6 F 07/06/24 12:00 Pulse 65 07/06/24 13:00 Resp 27 H 07/06/24 13:00 BP 134/95 07/06/24 13:00 Pulse Ox 94 L 07/06/24 13:00 FiO2 60 07/06/24 12:00 Intake & Output 07/05/24 07/06/24 07/06/24 18:59 06:59 18:59 Intake Total 2424.216 1780.227 811.954 Output Total 1410 1620 1440 Balance 1014.216 160.227 -628.046 Weight 140.4 kg 140.4 kg Intake: IV 1843 1136 552 0.9 @ KVO 110 120 70 Ampicillin-Sulbactam 3 gm 200 200 In Sodium Chloride 0.9% 100 ml @ 200 mls/hr IVPB Q6HR [facility] Rx#:[id number] Anidulafungin 100 mg In 100 Sodium Chloride 0.9% 100 ml @ 84 mls/hr IVPB DAILY @1200 [facility] Rx#:[id number] Dextrose 5%-0.9% NaCl 1, 550 550 350 000 ml @ 50 mls/hr IV . Q20H [facility] Rx#:[id number] Invasive Line 5 20 Invasive Line 6 30 30 20 Valproate Sodium 250 mg 100 200 100 In Sodium Chloride 0.9% 100 ml @ 100 mls/hr IVPB Q6HR [facility] Rx#:[id number] a-line 3ml 33 36 12 Intake, IV Titration 551.216 644.227 259.954 Amount Midazolam HCl 200 mg In 194.5 187.684 72.333 Sodium Chloride 0.9% 160 ml @ 11 MG/HR 11 mls/hr IV .[id number] [facility] Rx#: [id number] propofoL 1,000 mg In 356.716 456.543 187.621 Empty Bag 1 bag @ 15 MCG/ KG/MIN 9.846 mls/hr IV . [id number] [facility] Rx#:[id number] Tube Feeding 0 0 Other 30 0 Output: Urine 1285 1620 1440 Stool 100 Estimated Blood Loss 25 Other: Voiding Method Indwelling Catheter Indwelling Catheter Indwelling Catheter # Bowel Movements 0 0 ABP, PAP, CO, CI - Last Documented Arterial Blood Pressure 112/61 - Exam GENERAL DESCRIPTION: Middle-age female intubated through the trach RESPIRATORY SYSTEM: Unlabored breathing , decreased breath sounds at bases HEART: S1 S2 regular rate and rhythm , ABDOMEN: Soft , no tenderness EXTREMITIES: No edema feet - Labs CBC & Chem 7: 07/06/24 06:08 07/06/24 06:08 Labs: Abnormal Lab Results - Last 24 Hours (Table) 07/06/24 07/06/24 07/06/24 Range/Units 00:33 01:12 04:53 MCV (80.0-100.0) fL MCHC (31.0-37.0) g/dL ABG pH 7.51 H (7.35-7.45) ABG pCO2 32 L (35-45) mmHg ABG pO2 62 L (83-108) mmHg ABG Total CO2 26 H (19-24) mmol/L ABG O2 Saturation 91.8 L (94-97) % Hemoglobin 10.8 L (11.4-16.0) gm/dL Chloride (98-107) mmol/L Creatinine (0.52-1.04) mg/dL POC Glucose (mg/dL) 62 L 111 H (70-110) mg/dL Calcium (8.4-10.2) mg/dL 07/06/24 07/06/24 07/06/24 Range/Units 06:03 06:08 06:08 MCV 102.5 H (80.0-100.0) fL MCHC 30.9 L (31.0-37.0) g/dL ABG pH (7.35-7.45) ABG pCO2 (35-45) mmHg ABG pO2 (83-108) mmHg ABG Total CO2 (19-24) mmol/L ABG O2 Saturation (94-97) % Hemoglobin (11.4-16.0) gm/dL Chloride 110 H (98-107) mmol/L Creatinine 0.48 L (0.52-1.04) mg/dL POC Glucose (mg/dL) 66 L (70-110) mg/dL Calcium 8.2 L (8.4-10.2) mg/dL Assessment and Plan (1) Sepsis Current Visit: Yes Status: Acute Code(s): A41.9 - SEPSIS, UNSPECIFIED ORGANISM SNOMED Code(s): 41682845 (2) Pneumonia Current Visit: Yes Status: Acute Code(s): J18.9 - PNEUMONIA, UNSPECIFIED ORGANISM SNOMED Code(s): 025655681 (3) MSSA (methicillin susceptible Staphylococcus aureus) infection Current Visit: Yes Status: Acute Code(s): A49.01 - METHICILLIN SUSCEP STAPH INFECTION, UNSP SITE SNOMED Code(s): 512135618 Plan: 1patient presenting the hospital with drug overdose with subsequent agitation respiratory distress requiring intubation concerning for possible aspiration pneumonia sputum is now growing MSSA in this patient who did have features of sepsis with fever elevated white count and hypotension requiring low-dose press or support on initial evaluation. 2-patient did have resolution of her fever the patient white count normalized blood culture have been negative so far, sputum is growing MSSA with the patient is being treated with Unasyn duration will be 10 days discussed with the nursing staff 3patient has developed extensive vaginal area candidiasis unable to use Diflucan because of drug interaction currently on Eraxis, duration will be 5 days 4groin area candidiasis to continue with nystatin powder twice a day x 7 days Dictation was produced using [employer] software. please excuse any grammatical, word or spelling errors. Time with Patient: Less than 30
[2024-07-06] MEDS ORDERED: LORazepam 1 MG/0.5 ML VIAL IV PRN (15:08)
[2024-07-06 17:52] LABS: Glucose,Whole Blood 83 mg/dL (70-110)
--- NOTE | 2024-07-06 18:01 | P.OP ---
Date of Procedure: 07/05/24 Preoperative Diagnosis: 1. Ventilator Dependent Respiratory Failure 2. Failure to Thrive Postoperative Diagnosis: 1. Ventilator Dependent Respiratory Failure 2. Failure to Thrive Procedure(s) Performed: 1. Tracheostomy 2. EGD with PEG Tube Insertion Anesthesia: GREY Surgeon: Khoa Pruett Estimated Blood Loss (ml): 20 Pathology: none sent Condition: critical Disposition: ICU Description of Procedure: The patient was brought directly from the ICU to the operating room. The patient was given intravenous sedation and the area over the neck was prepped and draped in usual sterile fashion. Lidocaine 1% with epinephrine was used to infiltrate the skin and subcutaneous tissue. A vertical incision was made one fingerbreadth above the suprasternal notch and dissection taken down through the platysma to the strap muscles, which were divided in the midline. Hemostasis was excellent. Dissection continued through the thyroid gland and the pretracheal fascia was cauterized. An cruciate incision was made in the second tracheal ring and the trachea was opened. The endotracheal tube was slid back and dense secretions were aspirated. A #6 low- pressure cuff Shiley tracheostomy tube was successfully inserted into the trachea and the balloon inflated. The patient was then ventilated successfully with excellent oxygen saturations and CO2 return. The tracheostomy tube was secured to the skin using 2-0 Prolene suture. A tracheostomy tape was used to secure the flange around the neck leaving two fingerbreadths space beneath the tape. Skin around the tracheostomy was approximated with #3-0 Nylon suture. Sterile dressing was applied. Hemostasis was excellent throughout the case. Needle and sponge counts were correct at the end. Attention was then toward the PEG. The Abdomen was prepped and draped. A bite block was placed, and the endoscope was passed into the oropharynx and into the esophagus. We then passed the GE junction and entered the stomach. We continued the endoscopy out to the first portion of the duodenum. There were no ulcers present. A retroflexed view of the GE junction revealed no hiatal hernia. The light from the endoscope was readily visible through the patient's anterior abdominal wall, 2 cm inferior to the left costal margin. This transilluminated quite easily. We used a local needle to infiltrate the skin over the proposed PEG site first. A small stab incision was then made, and the introducer needle was then placed while aspirating into the gastric lumen. No air, succus or stool was noted prior to visualizing the tip of the needle in the gastric lumen. The guidewire was then placed through the introducer needle. This was grasped and was withdrawn through the patient's mouth. This was then attached to a Ponsky PEG tube, which was then pulled in an antegrade manner into the stomach and out the anterior abdominal wall. The esophagus was reentered better with the gastroscope, and this was advanced into the stomach. The bumper was noted to be flush with the gastric musoca. The tube was secured at this depth, then cut to size, and placed to gravity drainage. The stomach was then desufflated, and the endoscope was then withdrawn along the length of the esophagus. The patient tolerated the procedure well and was sent back to the ICU in critical condition.
[2024-07-06] MEDS: LORazepam 1 MG/0.5 ML VIAL IV PRN (18:45)
[2024-07-06] MEDS: HYDROmorphone 0.5 MG/0.5 ML SYRINGE IVP PRN (22:28)
[2024-07-06 23:28] LABS: Glucose,Whole Blood 83 mg/dL (70-110)
--- NOTE | 2024-07-07 05:36 | XR ---
EXAMINATION TYPE: XR chest 1V portable DATE OF EXAM: 07/07/2024 CLINICAL INDICATION: Female, 28 years old with history of Follow up post trach, progress study. TECHNIQUE: Single AP portable semiupright view of the chest is obtained. COMPARISON: Chest x-ray from one day earlier and older studies. FINDINGS: Stable tracheostomy tube. Persistent bilateral lower lung increased opacities. Cardiac silhouette size is stable and upper limi ts of normal. Osseous structures are intact. IMPRESSION: Persistent central vascular congestion with bilateral lower lung acute infiltrates and/or atelectasis and likely small bilateral pleural effusions. No significant change from one day earlier . [facility], , 07/07/2024 5:34 AM
[2024-07-07 05:42] LABS: HGB 11.5 gm/dL (11.4-16.0); Mean Platelet Volume 9.7; Platelet Count 314 k/uL (150-450); RBC 3.83 m/uL (3.80-5.40); RDW 14.1 % (11.5-15.5); WBC 10.1 k/uL (3.8-10.6)
[2024-07-07 05:50] LABS: ABG Base Excess 1.3 mmol/L; ABG HCO3 24 mmol/L (21-25); ABG Oxygen Saturation 94.1 % (94-97); ABG PCO2 31 mmHg (35-45); ABG PO2 70 mmHg (83-108); ABG TCO2 25 mmol/L (19-24); Allen Test Performed? Yes
[2024-07-07 05:53] LABS: African American GFR (CKD) >90 (>60 ml/min/1.73 sqM); Anion Gap 10 mmol/L; Blood Urea Nitrogen 14 mg/dL (7-17); Carbon Dioxide 22 mmol/L (22-30); Chloride 111 mmol/L (98-107); Glucose 81 mg/dL (74-99); Non-African American GFR(CKD) >90 (>60 ml/min/1.73 sqM); Sodium 143 mmol/L (137-145)
[2024-07-07 05:57] LABS: MCV 96.6 fL (80.0-100.0)
[2024-07-07 06:04] LABS: Potassium 4.1 mmol/L (3.5-5.1)
[2024-07-07 06:32] LABS: Glucose,Whole Blood 88 mg/dL (70-110)
--- NOTE | 2024-07-07 06:54 | P.PN ---
Subjective Progress Note Date: 07/06/24 07/06/2024: Patient was seen for follow-up. Patient had undergone tracheostomy and PEG tube placement yesterday. At present patient is on propofol 50 mcg/kg per minute, also on Versed 4 mg per hour. Patient is still sedated/comatose. 07/04/2024: Patient was seen for a follow-up. Patient is essentially unchanged. Still on propofol 75, fentanyl 1.5, Versed 15. Patient is off Nimbex. Per nurse report, after the Nimbex was discontinued, patient started becoming restless, and then desaturated. She was on propofol 50 mcg but then the dose was increased to 75 mcg along with higher dose of fentanyl and Versed. No seizure-like activity noticed. 07/03/2024: Patient was seen for a follow-up. Patient is essentially unchanged. Still on propofol 50, fentanyl 0.5, Versed 11 and Nimbex 1.5. No seizure-like activity. 07/02/2024: Patient initially seen by Dr. Jose Angel Mccoy. Please refer to his note for details. Patient is a 28-year-old female came with Wellbutrin overdose. Ingested at least 50 tablets of Wellbutrin. Patient had seizure-like activity and is on Depakote, maxed on Versed and propofol. 2 EEGs have been negative. Patient was seen for follow-up. Patient continues to be intubated, sedated on propofol 50 mcg/kg/min. Also on fentanyl 0.5 mcg/kg/h and Versed 11 mg/h. Patient also on Nimbex 1 mg/kg/min. Per nursing report, patient became acutely agitated, tried to sit up, vomited, and then aspirated really bad. Patient is on antibiotics. No seizure-like activity has been noticed since patient is on Depakote. Patient is on maximal dose of Versed and propofol. Patient is also on thiamine 100 mg IV daily. Patient was given phenobarbital x 1 dose as recommended by the poison control. Some of the workup at this hospital visit consisted of: White blood cell is within normal limits Level is for 96 Calcium is 6.1 and ionized calcium is 4.7 Magnesium is 1.2 POC glucose is 56 and repeated is in the low 100s. Sodium is within normal limits UDS is positive for benzo as well as marijuana. Routine EEG on 06/26/2024: Is abnormal. The background slowing is suggestive of mild encephalopathy likely due to toxic-metabolic derragement as well as medication use (IV Propofol, Versed and Ativan). Otherwise, no focal slowing, epileptiform discharges or seizures. CT head: No acute intracranial hemorrhage or midline shift is seen. Vauge areas of low attenuation in the bilateral cerebellar hemispheres slightly more prominent on the right are identified. Ischemic injury is in the differential. Other etiologies not excluded. I personally reviewed CT and I personally could not rule out artifact as well. Repeat CT of the head is reported as no acute intracranial process. No significant interval change from the comparison. Repeat EEG: Is abnormal. The background slowing is suggestive of severe encephalopathy. Severe encephalopathy is likely due to toxic metabolic derangement as well as medication induced. The diffuse suppression is likely due to medication induced (Versed as well as Ativan and propofol). Otherwise there is no focal slowing, OptiForm discharge or seizure on the EEG. Patient probably Objective - Vital Signs Vital signs: Vital Signs Temp 99.0 F 07/07/24 04:00 Pulse 73 07/07/24 06:00 Resp 22 07/07/24 06:00 BP 144/98 07/07/24 06:00 Pulse Ox 97 07/07/24 05:00 FiO2 60 07/07/24 04:15 Intake & Output 07/06/24 07/06/24 07/07/24 06:59 18:59 06:59 Intake Total 0008.223 5189.494 1471.561 Output Total 1620 2810 1925 Balance 160.227 -784.506 -453.439 Weight 140.4 kg 140.4 kg 138.7 kg Intake: IV 1136 1522 1060 0.9 @ KVO 120 130 110 Ampicillin-Sulbactam 3 gm 200 200 In Sodium Chloride 0.9% 100 ml @ 200 mls/hr IVPB Q6HR [facility] Rx#:[id number] Dextrose 5%-0.9% NaCl 1, 550 650 550 000 ml @ 50 mls/hr IV . Q20H [facility] Rx#:[id number] Invasive Line 6 30 30 Valproate Sodium 250 mg 200 700 200 In Sodium Chloride 0.9% 100 ml @ 100 mls/hr IVPB Q6HR [facility] Rx#:[id number] a-line 3ml 36 12 Intake, IV Titration 644.227 473.494 156.561 Amount Midazolam HCl 200 mg In 187.684 94.750 3.183 Sodium Chloride 0.9% 160 ml @ 11 MG/HR 11 mls/hr IV .[id number] [facility] Rx#: [id number] propofoL 1,000 mg In 456.543 378.744 153.378 Empty Bag 1 bag @ 15 MCG/ KG/MIN 9.846 mls/hr IV . [id number] [facility] Rx#:[id number] Tube Feeding 0 30 165 Other 0 90 Output: Urine 1620 2810 1925 Other: Voiding Method Indwelling Catheter Indwelling Catheter Indwelling Catheter # Bowel Movements 0 ABP, PAP, CO, CI - Last Documented Arterial Blood Pressure 112/61 - Exam Exam limited, as patient is intubated, sedated on propofol 50 mcg/kg per minute, Versed 4 mg per hour. Patient completely unresponsive. Exam limited due to being on medications as mentioned above Patient not responding to any painful stimuli. Pupils are equal, round and reactive to light. Oculocephalics are present. Corneals present. GCS of 3. Patient has slight eye blinking noticed. However no clearcut seizure-like activity. - Labs CBC & Chem 7: 07/07/24 05:06 07/07/24 05:06 Labs: Abnormal Lab Results - Last 24 Hours (Table) 07/06/24 07/06/24 07/07/24 Range/Units 06:08 06:08 05:06 MCV 102.5 H (80.0-100.0) fL MCHC 30.9 L (31.0-37.0) g/dL ABG pH (7.35-7.45) ABG pCO2 (35-45) mmHg ABG pO2 (83-108) mmHg ABG Total CO2 (19-24) mmol/L Chloride 110 H 111 H (98-107) mmol/L Creatinine 0.48 L 0.50 L (0.52-1.04) mg/dL Calcium 8.2 L 8.0 L (8.4-10.2) mg/dL 07/07/24 Range/Units 05:49 MCV (80.0-100.0) fL MCHC (31.0-37.0) g/dL ABG pH 7.50 H (7.35-7.45) ABG pCO2 31 L (35-45) mmHg ABG pO2 70 L (83-108) mmHg ABG Total CO2 25 H (19-24) mmol/L Chloride (98-107) mmol/L Creatinine (0.52-1.04) mg/dL Calcium (8.4-10.2) mg/dL Assessment and Plan Assessment: This is a 28-year-old woman with a history of borderline personality disorder who presented emergency department because of a suicidal attempt by taking multi ple Wellbutrin tablets. Questionable few episode of seizure-like activity: Unsure if patient is having withdrawing symptoms. If she did have a seizure its likely provoked due to her metabolic derangement and perhaps due to lowering seizure threshold from Wellbutrin. She had 3 EEGs performed so far and negative for seizure or discharges. Is on High dose Versed and Propofol and is on Depakote. Metabolic encephalopathy, severe degree Status post tracheostomy and PEG tube placement 07/05/2024 Suicidal attempt Hypoglycemia Hypomagnesium History of borderline personality disorder Plan: * Patient is being weaned off sedation. Currently only on Versed 4 mg/h. This will be discontinued in the morning. * We will repeat EEG, once her sedation is completely discontinued, if patient does not show meaningful response. * Repeat CT head performed on 06/29/2024, which revealed no acute intracranial process. * EEG 07/04/2024 was abnormal due to background slowing of moderate to severe degree. This is suggestive of generalized cerebral dysfunction as can be seen with toxic metabolic encephalopathy or related to diffuse structural brain abnormality. Clinical correlation is recommended. No obvious epileptiform activity was seen. When compared to the EEG from 06/29/2024, the intermittent background suppression seen in the previous study has resolved, but now has replaced with diffuse high amplitude theta and delta slowing as mentioned a ronnie. Follow-up EEG recommended, if clinically indicated. * Patient is on Valproic acid 500 mg twice daily which helps with the seizures as well as the mood * Seizure precaution and pads * Psychiatry is consulted * Please avoid any further hypoglycemia and will defer correction of the liu ctrolyte imbalance to primary and ICU team. * Will defer the rest of the medical management to primary other specialist * Patient is status post tracheostomy and PEG tube placement 07/05/2024. * Plan discussed with the ICU nurse. * Prognosis is guarded.
--- NOTE | 2024-07-07 10:07 | P.PN ---
Subjective Progress Note Date: 07/07/24 Progress Note Date: 07/06/24 This is a 28-year-old female with history of borderline personality disorder, presented yesterday to the ER with intentional suicidal attempt by taking multiple Wellbutrin tablets. According to the chart patient may have taken about 30 tablets. Patient stated to the ER physician that she does not want to live like this anymore, and she took many tablets of Wellbutrin. This was obviously a suicidal attempt. Patient received activated charcoal, patient was admitted to the medical floor, however this morning patient was becoming more and more agitated and restless, becoming more lightheaded, patient was getting quite tachycardic, and hypertensive. Has been receiving Ativan and Librium overnight, rapid response team responded to the patient this morning and she received additional 8 mg of Ativan, 50 mg of Benadryl and 5 mg of Haldol. Cont inued to be agitated and requiring 4 point restraints. At this point patient was intubated, placed on propofol drip and Versed drip, transferred to the ICU, and I saw her on consultation upon arrival. Patient required lines placement including a right femoral triple-lumen catheter and right radial arterial line which was done on emergency basis as the patient had very poor peripheral IV access. Patient was intubated and mechanically ventilated, she is on assist- control rate of 16 tidal volume 450 FiO2 50% and PEEP of 5 ABG showed a pO2 of 364 pCO2 of 39 pH of 7.29 she received 1 amp of bicarb. Patient was on propofol at 50 mcg/kg/min Versed at 3 mg/h IV fluid 0.9 at 75 cc/h and she is on the usual ICU protocol for GI and DVT prophylaxis she is also on ventilatory support, and will address nutritional support later today or tomorrow. CBC showed WBC of 6.3 hemoglobin 12.4 electrolytes showed low potassium of 3.0 being addressed accordingly, labs were all reviewed, test was negative. Drug screen showed positive for benzodiazepines and positive for marijuana. Otherwise was negative. Patient was evaluated today on 06/27/2024, remains in the ICU, intubated and mechanically ventilated. Patient is on assist-control rate of 16 tidal volume 450 FiO2 40% PEEP of 5 ABG showed a pO2 of 114 pCO2 38 pH of 7.43. Patient remains on propofol at 50 mcg/kg/min she is also on Versed at 5 mg/h and earlier this morning the patient developed low urine output, and low blood pressure, she received multiple fluid boluses about 3 L, and she had to be placed on norepinephrine at 0.01 mcg/kg/min, I feel the hypotension is most likely related to excessive sedation, and her poor urine output is secondary to low blood pressure. Today I recommended that we cut down on her sedation and hopefully try to transition the patient to Precedex if possible. Apparently this was attempted but the patient woke up suddenly and vomited, and was noted to be restless and agitated has recommended that she goes back on Versed and propofol and the dose to be titrated. Patient has not had any seizure activity, she remains on GI and DVT prophylaxis, heparin subcu, remains on seizure precautions , labs today show WBC count of 4.9 hemoglobin 10.8, electrolytes were noted to be normal renal profile is normal creatinine 0.68 CPK elevated at 508 and this is very related to her recent seizure. Chest x-ray continues to show bibasilar atelectasis, doubt infiltrate. Although patient is set up for aspiration. The chest x-ray is not quite impressive to consider starting empiric antibiotics. Patient was seen today on 06/28/2024, patient remains in the ICU, intubated and mechanically ventilated, she is on assist-control rate of 16 tidal volume 400 FiO2 50% and PEEP of 5. Patient had an earlier blood gas on 40% FiO2 which showed a pO2 of 54 pCO2 29 pH of 7.50 and apparently the gas was done earlier shortly after she was witnessed to have an aspiration episode as she woke up and became agitated, she aspirated and developed right lower lobe atelectasis/infiltrate and possibly a small right-sided pleural effusion hence her FiO2 was increased to 50%. Patient is on propofol at 50 mcg/kg/min, Versed and 13 mg/h norepinephrine at 0.02 mcg/kg/min vital HP at 40/45 and IV fluid 0.9 normal saline at 75 cc/h. WBC count is 7.6 hemoglobin is 11.2, basic metabolic profile is relatively normal however her bicarb is 15 potassium is 2.8, anion gap is 6, and her creatinine kinase is 496. Sputum cultures today are showing presumptive Staph aureus, patient was placed earlier today on Zosyn and now I will go ahead and add vancomycin. Patient was seen today on 06/29/2024, patient remains in the ICU, intubated and mechanically ventilated, continues to have intermittent episodes of seizure-like activities although the patient is maximized on propofol at 50 mcg/kg/min on Versed at 15 mg/h patient is requiring norepinephrine at 0.04 mcg/kg/min she is on 0.9 normal saline at 75 cc/h and vital HP at 45 cc/h. CT of the head showed some questionable ischemic injury being addressed by neurology, and recommending eventually MRI. Patient remains on Zosyn and vancomycin for aspiration pneumonia and positive sputum for MRSA. Remains on assist-control rate of 16 tidal volume 400 FiO2 50% and PEEP of 5 ABG showed a pO2 of 70 pCO2 30 pH of 7.42. Hence no changes were made in vent settings. Infectious disease was consulted for her positive Staph aureus in the sputum in the meantime we will continue with vancomycin and Zosyn. Patient clearly had aspiration pneumonia chest x-ray is consistent with aspiration pneumonia. At this point in time the patient is not ready for any weaning as she gets extremely restless and agitated and again she has these episodes of seizure-like activities, Poison control recommended phenobarbital. Patient will be given a dose of phenobarbital x 1. Labs today show WBC is 14.3 hemoglobin 11.2, basic metabolic profile is normal electrolytes are normal bicarb is a bit low at 19 renal profile is normal. CPK is coming down to 302. Patient was seen today on 06/30/2024, remains in the ICU, remains intubated and mechanically ventilated, she is on assist-control rate of 16 tidal volume 400 FiO2 60% and PEEP up to 10. ABG showed a pO2 of 96 pCO2 34 pH of 7.40 her PEEP was at 5 prior to this blood gas, and I increased the PEEP up to 10. Patient remains on Versed at 15 mg/h patient is also on propofol at 75 mg/kg/min norepinephrine is presently on hold patient is receiving fluid at 75 cc/h she is also on vital 20/20 patient is now on Unasyn, and her vancomycin was discontinued because the sputum was positive for MSSA and not MRSA. Urine output is adequate about 50 to 60 cc/h patient received 1 dose of phenobarbital yesterday for extreme agitation, and questionable seizures, neurology has the patient now on Depakote. Overall the patient is not making much improvement, her chest x-ray continues to show worsening of her aspiration pneumonia. And her FiO2 requirement remains relatively high, PEEP was increased today up to 10. Labs today showed WBC count of 12.1 hemoglobin 9.9. Platelets are 191. Basic metabolic profile is normal bicarb is 21 BUN is 6 creatinine 0.45 CPK is down to 248. Patient is now on Unasyn, heparin subcu, Ativan as needed, propofol and Versed, pantoprazole, she received 1 dose of phenobarbital, patient is also receiving valproic acid and Tigan. She is also receiving thiamine Seen today on 07/01/2024, patient remains about the same, remains critically ill, remains intubated mechanically ventilated, on assist-control rate of 16 tidal volume 400 FiO2 60% PEEP of 10 ABG remains marginal with a pO2 of 72 pCO2 34 pH of 7.40. Still requiring significant amount of sedation including Versed at 14 mg/h, norepinephrine at 0.02 presently on hold, she is on propofol at 75 mcg/kg/min. , IV fluids 0.9 normal saline at 75 cc/h. Chest x-ray continues to show significant bilateral airspace disease specially right lower lobe and left lower lobe consistent with aspiration pneumonia. Patient remains on antibiotics . WBC count today is 9.8 hemoglobin 9.9. Electrolytes showed low potassium of 3.3 being addressed accordingly, otherwise the patient has normal renal functioning. Remains on nutritional support/enteral feeding. Patient was seen today on 07/02/2024, remains in the ICU, intubated and mechanically ventilated, sedated, and paralyzed. Yesterday the patient continued to have significant agitation and spite of significant sedation including high-dose propofol, and high-dose Versed, she Desaturating frequently, and FiO2 was increased up to 70%, PEEP was increased up to 12, hence I recommended Nimbex to be started, patient was bolused and placed on Nimbex drip. Remains on Nimbex drip at 1 mcg/kg/min, remains on IV fluid at 50 cc/h in the form of D5.9 she is on fentanyl at 0.5 mcg/kg/h Versed is down to 12 mg/h propofol at 50 mcg/kg/min, patient was also placed on Decadron yesterday for her extensive pneumonic process involving both lower lobes, this was felt to be aspiration pneumonia. Her sputum has been positive for MSSA. Patient remains on GI and DVT prophylaxis. Vent settings today on AC rate of 16 tidal volume of 400 was increased to 500 yesterday, FiO2 down to 50% PEEP is 12 her ABG showed a pO2 of 95 pCO2 54 pH of 7.25 and that is when her tidal volume was increased to 500. Patient remains on nutritional support/enteral feeding, today she is not requiring norepinephrine but she has been intermittently on norepinephrine. Urine output is good about 50 to 60 cc/h. Chest x-ray continues show bilateral extensive infiltrates involving right lower lobe and left lower lobe. Labs today WBC count is 10.1 hemoglobin is 10.3 repeat ABG after vent setting changes showed a pO2 of 74 pCO2 42 pH of 7.37 and this is on 50% FiO2. 07/03/2024: This is a 28-year-old female with history of borderline personality disorder admitted to ICU on 06/26 and was subsequently intubated due to acute respiratory failure secondary to Wellbutrin overdose. According to the chart patient may have taken about 30-90 tablets. Patiente was intubtated on 06/26 due to extreme agitation and restlessness. Patient was seen today on 07/02/2024, she remains in ICU mechanically ventilated, sedated, and paralyzed. She is on assist-control at a rate of 16, tidal volume of 500, FiO2 at 70%, PEEP of 12. ABG this morning showing pH of 7.4, pCO2 44, pO2 69. Currently on Nimbex 1.5 mcg/mg/min, propofol 50 mcg/kg/min, fentanyl 0.5mcg/kg/hr, Versed 11 mg/hr, and propofol 50 mcg/kg/min. Intermittently has been on norepinephrine, but is currently not requiring it at this moment. Last weaning trial was on 06/29. Tube nutritional support/enteral feeding vital HP at goal. No overnight events. Chest x-ray showing patchy basilar infiltrates, no change from prior. Remains on Unasyn at 200 MLS/HR IVPB every 6 hours due to aspiration pneumonia. Remains on Decadron 6 mg IVP every 6 hours. Labs: WBC 8.5, Hgb 9.9 1, HCT 33.2, platelet 248, sodium 143, potassium 3.9, BUN 11, creatinine 0.14, glucose 137. Patient seen today on 07/04/2024 in room 260. She remains sedated on mechanical ventilator. She is on volume assist-control, rate 16, tidal volume 500, FiO2 60%, PEEP of 12. Blood gases show pO2 of 73, pCO2 of 41, pH is 7.43. The patient is getting D5.9 at 50 cc an hour, fentanyl drip at 0.5 mcg/kg/h, Versed at 11 mg an hour, propofol at 50 mcg/kg/min, Nimbex at 2.0 mcg/kg/min (which we will discontinue today), and vital HP at 20 cc an hour which is goal. Remains on Unasyn due to MSSA found in sputum culture. Blood cultures showing no growth after 5 days. There are no plans of weaning of mechanical ventilation. She has been on the ventilator since June 26. Spoke with mother regarding tracheostomy and PEG tube placement. Mother is agreeable with continued life support. Surgery has been consulted for tracheostomy and PEG tube placement with plans on have tracheostomy and PEG tube placement on with Dr. Quinteros. CXR showing bibisilar opacities. White count is 7.3, hemoglobin 9.5, hematocrit 31.5, platelet count 266,000. Sodium 140, potassium 4.1, chlorides 109, CO2 26, BUN 14, creatinine 0.42. Glucose is 104. Calcium is 7.8. Labs, x-rays, and all medications are reviewed. Prognosis is guarded. Patient seen today on 07/05/2024 in room 260. She remains on mechanical ventilator. She is on volume assist-control, rate 16, tidal volume 500, FiO2 60%, PEEP of 12. Blood gases show pO2 of 69, pCO2 of 37, pH is 7.47. The patient is getting D5.9 at 50 cc an hour, fentanyl drip discontinued around 4:00am, Versed at 15 mg an hour, propofol at 75 mcg/kg/min, Nimbex removed at 2:30p yesterday, and tube feeds have been on hold since midnight. Remains on Unasyn due to MSSA found in sputum culture. She has also been placed on Eraxis by ID due to vaginal candidiasis. She has been on the ventilator since June 26. Surgery has been consulted and tracheostomy is scheduled for today with Dr Pruett at 11am. CXR showing bibisilar opacities, similar to prior. White count is 7.9, hemoglobin 9.8, hematocrit 30.8, platelet count 286,000. Sodium 140, potassium 4.1, chlorides 109, CO2 24, BUN 11, creatinine 0.37. Glucose is 97. Calcium is 8.0. Labs, x-rays, and all medications are reviewed. Plan is for tracheostomy and PEG tube placement today. Prognosis is guarded. Patient seen today on 07/06/2024 in room 260. She remains on mechanical ventilator. She is on volume assist-control, rate 16, tidal volume 500, FiO2 60%, PEEP of 12. Blood gases show pO2 of 62, pCO2 of 32, pH is 7.51. The patient is getting D5.9 at 50 cc an hour, Versed at 10 mg an hour, propofol at 50 mcg/kg/min, and tube feeds currently on hold, will resume later today. Remains on Unasyn and Eraxis. Will contact ID regarding duration of antibiotic course. She is day one since being placed on trach and PEG tube. ART line was lost yesterday. CXR showing bibisilar opacities, tracheostmy cannula tip projecting over trachea. White count is 7.9, hemoglobin 9.8, hematocrit 30.8, platelet count 286,000. Sodium 140, potassium 3.8, chlorides 110, CO2 23, BUN 12, creatinine 0.48. Glucose is 83. Calcium is 8.2. Labs, x-rays, and all medications are reviewed. Plan is to wean off Versed and propofol. Will order Ativan 1mg q6hr prn and 0.5 mg Dilaudid q4hr prn. Prognosis is guarded. Patient seen today on 07/07/2024 in room 260. She remains on mechanical ventilator. She is on volume assist-control, rate 15, tidal volume 500, FiO2 60%, PEEP of 12. Blood gases show pO2 of 70, pCO2 of 31, pH is 7.50. She is awake and was crying, but she is not following any commands. The patient is getting D5.9 at 50 cc an hour, Versed off since 2200 last night, propofol at 10 mcg/kg/min, and tube feeds resumed, vital HP at 20 cc/hr with a goal of 45. Remains on day 9 of 10 with Unasyn and day 3 of 5 with Eraxis. She is day two since being placed on trach and PEG tube. CXR showing bibisilar opacities, tracheostmy cannula tip projecting over trachea. Patient had EEG done today, reading is pending. White count is 10.1, hemoglobin 11.5, hematocrit 37.0, platelet count 314,000. Sodium 143, potassium 4.1, chlorides 111, CO2 22, BUN 14, creatinine 0.50. Glucose is 81. Calcium is 8.0. Labs, x-rays, and all medications are reviewed. Will resume Fluoxetine. She is pending placement, she currently does not have any insurance. Prognosis is guarded. Objective - Vital Signs Vital signs: Vital Signs Temp 99.0 F 07/07/24 04:00 Pulse 76 07/07/24 07:00 Resp 23 07/07/24 07:00 BP 143/99 07/07/24 07:00 Pulse Ox 97 07/07/24 07:00 FiO2 60 07/07/24 04:15 Intake & Output 07/06/24 07/07/24 07/07/24 18:59 06:59 18:59 Intake Total 2025.494 1476.812 75 Output Total 2810 1925 175 Balance -784.506 -448.188 -100 Weight 140.4 kg 138.7 kg Intake: IV 1522 1060 60 0.9 @ KVO 130 110 10 Ampicillin-Sulbactam 3 gm 200 In Sodium Chloride 0.9% 100 ml @ 200 mls/hr IVPB Q6HR [facility] Rx#:[id number] Dextrose 5%-0.9% NaCl 1, 650 550 50 000 ml @ 50 mls/hr IV . Q20H [facility] Rx#:[id number] Invasive Line 6 30 Valproate Sodium 250 mg 700 200 In Sodium Chloride 0.9% 100 ml @ 100 mls/hr IVPB Q6HR [facility] Rx#:[id number] a-line 3ml 12 Intake, IV Titration 473.494 161.812 Amount Midazolam HCl 200 mg In 94.750 3.183 Sodium Chloride 0.9% 160 ml @ 11 MG/HR 11 mls/hr IV .[id number] [facility] Rx#: [id number] propofoL 1,000 mg In 378.744 158.629 Empty Bag 1 bag @ 15 MCG/ KG/MIN 9.846 mls/hr IV . [id number] [facility] Rx#:[id number] Tube Feeding 30 165 15 Other 90 Output: Urine 2810 1925 175 Other: Voiding Method Indwelling Catheter Indwelling Catheter ABP, PAP, CO, CI - Last Documented Arterial Blood Pressure 112/61 - Labs CBC & Chem 7: 07/07/24 05:06 07/07/24 05:06 Labs: Abnormal Lab Results - Last 24 Hours (Table) 07/07/24 07/07/24 Range/Units 05:06 05:49 ABG pH 7.50 H (7.35-7.45) ABG pCO2 31 L (35-45) mmHg ABG pO2 70 L (83-108) mmHg ABG Total CO2 25 H (19-24) mmol/L Chloride 111 H (98-107) mmol/L Creatinine 0.50 L (0.52-1.04) mg/dL Calcium 8.0 L (8.4-10.2) mg/dL Assessment and Plan Assessment: Acute respiratory failure, secondary to Wellbutrin overdose which required significant amount of sedation and patient developed respiratory failure requiring intubation and mechanical ventilation and needed to be intubated for protection of her airways as the patient received significant amount of sedation to control her agitation from Wellbutrin overdose. Again patient was intubated to protect her airways. Acute hypoxic respiratory failure secondary to pneumonia which has developed post intubation, on Unasyn Wellbutrin overdose Borderline personality disorder Suicidal attempt Aspiration pneumonia Sepsis secondary to aspiration pneumonia Electrolytes imbalance History of generalized anxiety disorder MSSA pneumonia Plan: Continue ventilatory support, not ready for weaning, patient is still requiring significant amount of sedation and paralysis to adequately ventilate maintain adequate O2 saturation Unasyn day Eraxis day 3 of Continue Depakote Continue GI and DVT prophylaxis Continue propofol and Versed, adjust as needed Continue seizure precautions, and continue seizure meds as per neurology on the case Ordered Fluoxetine 40 mg PO daily Patient does not qualify for any weaning trials today. I spoke to patient's mother regarding tracheostomy and PEG tube placement. Patient mother understands and is agreeable, consent forms signed. Nimbex and fentanyl has been discontinued Status post tracheostomy and PEG tube placement Versed off since 2200 last night 07/06 and will continue to try to wean down propofol IV Ativan q6hr prn and IV Dilaudid 0.5 mg q4hr prn Continue Vital HP tube feeding Patient remains critically ill. Prognosis is guarded.
[2024-07-07 11:47] LABS: Glucose,Whole Blood 95 mg/dL (70-110)
--- NOTE | 2024-07-07 12:05 | P.PN ---
Subjective Progress Note Date: 07/07/24 SURGICAL PROGRESS NOTE CHIEF COMPLAINT: Intentional overdose HISTORY OF PRESENT ILLNESS: Patient is postop day #2 status post tracheostomy and PEG tube placement. Patient remains in the ICU and on mechanical ventilation. Patient is awake. Opens eyes. But no purposeful movements per nursing staff. Patient is tolerating tube feeds at 35 mL/h. Afebrile. PHYSICAL EXAM: VITAL SIGNS: Reviewed. GENERAL: no acute distress. HEENT: Tracheostomy site with small amount of serosanguineous oozing noted ABDOMEN: Soft. Obese. PEG tube site clean dry and intact ASSESSMENT: 1. Acute respiratory failure s/p intubation to protect airway after patient received significant sedation for agitation from Wellbutrin overdose and had an aspiration pneumonia 2. Severe protein calorie malnutrition 3. Suicide attempt with Wellbutrin overdose PLAN: -Continue to titrate tube feeds per dietitian recommendations -Continue ICU management -Continue supportive care Physician [employer] note has been reviewed by physician. Signing provider agrees with the documented findings, assessment, and plan of care. Objective - Vital Signs Vital signs: Vital Signs Temp 100.7 F H 07/07/24 08:00 Pulse 85 07/07/24 11:00 Resp 23 07/07/24 11:00 BP 149/97 07/07/24 11:00 Pulse Ox 96 07/07/24 11:00 FiO2 60 07/07/24 11:21 Intake & Output 07/06/24 07/07/24 07/07/24 18:59 06:59 18:59 Intake Total 5.494 1476.812 456.825 Output Total 2810 1925 1025 Balance -784.506 -448.188 -568.175 Weight 140.4 kg 138.7 kg 138.7 kg Intake: IV 1522 1060 300 0.9 @ KVO 130 110 50 Ampicillin-Sulbactam 3 gm 200 In Sodium Chloride 0.9% 100 ml @ 200 mls/hr IVPB Q6HR [facility] Rx#:[id number] Dextrose 5%-0.9% NaCl 1, 650 550 250 000 ml @ 50 mls/hr IV . Q20H [facility] Rx#:[id number] Invasive Line 6 30 Valproate Sodium 250 mg 700 200 In Sodium Chloride 0.9% 100 ml @ 100 mls/hr IVPB Q6HR [facility] Rx#:[id number] a-line 3ml 12 Intake, IV Titration 473.494 161.812 21.825 Amount Midazolam HCl 200 mg In 94.750 3.183 Sodium Chloride 0.9% 160 ml @ 11 MG/HR 11 mls/hr IV .[id number] [facility] Rx#: [id number] propofoL 1,000 mg In 378.744 158.629 21.825 Empty Bag 1 bag @ 15 MCG/ KG/MIN 9.846 mls/hr IV . [id number] [facility] Rx#:[id number] Tube Feeding 30 165 105 Other 90 30 Output: Urine 2810 1925 1025 Other: Voiding Method Indwelling Catheter Indwelling Catheter Indwelling Catheter ABP, PAP, CO, CI - Last Documented Arterial Blood Pressure 112/61 - Labs CBC & Chem 7: 07/07/24 05:06 07/07/24 05:06 Labs: Abnormal Lab Results - Last 24 Hours (Table) 07/07/24 07/07/24 Range/Units 05:06 05:49 ABG pH 7.50 H (7.35-7.45) ABG pCO2 31 L (35-45) mmHg ABG pO2 70 L (83-108) mmHg ABG Total CO2 25 H (19-24) mmol/L Chloride 111 H (98-107) mmol/L Creatinine 0.50 L (0.52-1.04) mg/dL Calcium 8.0 L (8.4-10.2) mg/dL
--- NOTE | 2024-07-07 13:02 | P.PN ---
Subjective Progress Note Date: 07/07/24 28 year old F with PMH of anxiety and borderline personality disorder on Wellbutrin presented after intentional ingestion of Wellbutrin. Patient is psychotic at the time my evaluation does not provide reliable history. According to ER provider signout as well as chart review, patient ingested somewhere between 50-90 extended release Wellbutrin tablets and an overdose attempt. Patient is clearly agitated, tachycardic at the time my evaluation. Upon arrival patient was afebrile, 148/96, heart rate 83. Patient subsequently received activated charcoal, was started on IV fluids, and given a total of 7 mg of Ativan while on continuous telemetry, with heart rates increasing to the 130s to 140s. The ER provider did contact poison control control who recommended medical monitoring until patient is stable for transfer to the mental health unit. Review of lab work shows normal CBC, CO2 of 20, ALT of 91, negative troponin, normal lactic acid, negative salicylate level, alcohol level, Tylenol level. Initial EKG shows normal sinus rhythm with a short ME interval and right axis deviation. Patient was admitted to the cardiac selective floor with telemetry, with low threshold for ICU escalation. Received multiple doses of Ativan + Librium, remained agitated, intubated on 06/27. Concerns for aspiration on 06/28, started on Zosyn with Vancomycin added for staph sputum Cx. IV consulted, switched to Unasyn on 06/29. Concerns for seizures, started on Depakote, Neurology consulted. CT head showed no acute hemorrhage, areas of low-attenuation in the bilateral cerebellar hemisphere slightly more prominent on the right, per neurology, could be artifact. EEG done in was abnormal, showed background slowing suggestive of mild encephalopathy likely due to toxic metabolic derangement as well as m edication use, no epileptiform discharges, seizures. Poison control recommended phenobarbital 570 mg IV x1 on 06/29. Difficulty with extubation, CTA chest 07/02 showed no PE, multifocal PNA, cardiomegaly with small pleural effusions. Plan is for trach/PEG. 07/04 Patient was seen and examined. Intubated. Sedation and paralytics include Nimbex at 2 mcg/kg/hr, Fentanfyl at 0.5 mcg/kg/hr, Propofol at 50 mcg/kg/hr, and Midazolam at 11 mg/hr. Vent settings include rate 16, tidal volume 500, FiO2 60% with PEEP of 12. Antibiotics include Unasyn 3g IV TID. Currently on D5W at 50 cc/hr. CBC, BMP significant for RBC 3.15, Hg 9.5 Hct 31.5, Cl 109, Cr 0.42, glu 104, Ca 7.8. ABG pH 7.43, pCO2 41, pO2 73 with FiO2 60%. CXR bibasilar airspace opacities. 07/05 Patient was seen and examined. Intubated. Nimbex and Fentanfyl weaned off. Currently on Propofol at 75 mcg/kg/hr, and Midazolam at 15 mg/hr. Vent settings include rate 16, tidal volume 500, FiO2 60% with PEEP of 12. Antibiotics include Unasyn 3g IV TID. Anidulafungin 100 mg IV QD started by ID today. Currently on D5W at 50 cc/hr. CBC, BMP significant for RBC 3.14, Hg 9.8 Hct 30.8, Cl 109, Cr 0.37, Ca 8. ABG pH 7.47, pCO2 37, pO2 69 with FiO2 60%. CXR shows persistent bibasilar airspace opacities. Plans for trach and PEG today. 07/06 Patient was seen and examined. Intubated. Underwent trach and PEG yesterday. Currently on Propofol at 50 mcg/kg/hr, and Midazolam at 6 mg/hr. Vent settings include rate 16, tidal volume 500, FiO2 60% with PEEP of 12. Antibiotics include Unasyn 3g IV TID. Anidulafungin 100 mg IV QD started by ID 07/05. CBC, BMP sig nificant for MCV 102.5, Cl 110, Cr 0.48, Ca 8.2, glu 66. ABG pH 7.51, pCO2 32, pO2 62 with FiO2 60%. CXR shows persistent bibasilar airspace opacities with tracheostomy. 07/07 Patient was seen and examined. Intubated. Currently on Propofol at 10 mcg/kg/hr. Midazolam weaned off. Vent settings include rate 16, tidal volume 500, FiO2 60% with PEEP of 12. Antibiotics include Unasyn 3g IV TID. Anidulafun gin 100 mg IV QD started by ID 07/05. CBC, BMP significant for Cl 111, Cr 0.5, Ca 8. ABG pH 7.5, pCO2 31, pO2 70 with FiO2 60%. CXR shows persistent bibasilar airspace opacities with tracheostomy. General: Intubated. Obese. Derm: warm, dry Head: atraumatic, normocephalic, symmetric Eyes: no lid lag, anicteric sclera Mouth: no lip lesion, mucus membranes moist Cardiovascular: S1S2 reg, no murmur Lungs: Bilateral rhonchi, no rales , no accessory muscle use Ext: no gross muscle atrophy, no edema, no contractures Neuro: Unable to determine Psych: Unable to determine Based on my assessment of this patient, this patient meets a high complexity level of care. Acute respiratory failure s/p intubation for airway protection 06/27: CTA chest negative for PE but does show multifocal PNA with cardiomegaly and small pleural effusions. Status post PEG/Trach 07/05. Sputum culture growing Staph aureus: Unasyn as below. Sepsis likely secondary to aspiration pneumonia: Continue Unasyn 3g IV TID per ID recommendations. Tylenol 650 mg PO Q6H PRN fever. Elevated HOB. Aspiration precautions. Vent management per Pulmonary. Acute metabolic encephalopathy due to below: EEG shows encephalopathy. CT head 06/29 no acute process. Continue Valproic acid 500 mg PO BID. Seizure precautions. Neurology on board. Intentional overdose with Wellbutrin Iron def anemia: Iron level of 9. Defer IV iron while treating active infection. Monitor Hg. Transfuse if Hg < 7. Constipation: Miralax 17g PO QHS. Lactulose 20g PO QD PRN. Anxiety and Borderline personality disorder: Pyschiatry on board. Resolved: Metabolic acidosis, Hypokalemia, Hypomagnesemia CODE STATUS: FULL CODE. DVT Prophylaxis: Heparin SQ GI Prophylaxis: Protonix IV Designated medical POA if patient is not able to make medical decisions for themselves: I have reviewed the following personal consultant notes: Pulmonary, Surgery. I have reviewed the results of the following tests: As above. I have ordered the following tests: I have discussed the care of this patient with the following independent historian: I have independently interpreted the following test below: CXR I have discussed the management of this patient with the following physician: Objective - Vital Signs Vital signs: Vital Signs Temp 100.4 F H 07/07/24 12:00 Pulse 82 07/07/24 12:00 Resp 23 07/07/24 12:00 BP 151/106 07/07/24 12:00 Pulse Ox 95 07/07/24 12:00 FiO2 60 07/07/24 12:00 Intake & Output 07/06/24 07/07/24 07/07/24 18:59 06:59 18:59 Intake Total 2025.494 1476.812 804.580 Output Total 2810 1925 1375 Balance -784.506 -448.188 -570.420 Weight 140.4 kg 138.7 kg 138.7 kg Intake: IV 1522 1060 560 0.9 @ KVO 130 110 60 Ampicillin-Sulbactam 3 gm 200 In Sodium Chloride 0.9% 100 ml @ 200 mls/hr IVPB Q6HR [facility] Rx#:[id number] Anidulafungin 100 mg In 100 Sodium Chloride 0.9% 100 ml @ 84 mls/hr IVPB DAILY @1200 [facility] Rx#:[id number] Dextrose 5%-0.9% NaCl 1, 650 550 300 000 ml @ 50 mls/hr IV . Q20H [facility] Rx#:[id number] Invasive Line 6 30 Valproate Sodium 250 mg 700 200 100 In Sodium Chloride 0.9% 100 ml @ 100 mls/hr IVPB Q6HR [facility] Rx#:[id number] a-line 3ml 12 Intake, IV Titration 473.494 161.812 44.580 Amount Midazolam HCl 200 mg In 94.750 3.183 Sodium Chloride 0.9% 160 ml @ 11 MG/HR 11 mls/hr IV .[id number] [facility] Rx#: [id number] propofoL 1,000 mg In 378.744 158.629 44.580 Empty Bag 1 bag @ 15 MCG/ KG/MIN 9.846 mls/hr IV . [id number] [facility] Rx#:[id number] Tube Feeding 30 165 140 Other 90 60 Output: Urine 2810 1925 1375 Other: Voiding Method Indwelling Catheter Indwelling Catheter Indwelling Catheter ABP, PAP, CO, CI - Last Documented Arterial Blood Pressure 112/61 - Labs CBC & Chem 7: 07/07/24 05:06 07/07/24 05:06 Labs: Abnormal Lab Results - Last 24 Hours (Table) 07/07/24 07/07/24 Range/Units 05:06 05:49 ABG pH 7.50 H (7.35-7.45) ABG pCO2 31 L (35-45) mmHg ABG pO2 70 L (83-108) mmHg ABG Total CO2 25 H (19-24) mmol/L Chloride 111 H (98-107) mmol/L Creatinine 0.50 L (0.52-1.04) mg/dL Calcium 8.0 L (8.4-10.2) mg/dL
[2024-07-07] MEDS: FLUoxetine HCL 20 MG CAP PO SCH (13:44)
--- NOTE | 2024-07-07 15:30 | P.PN ---
Subjective Progress Note Date: 07/07/24 Principal diagnosis: Reason for follow-up is MSSA/aspiration pneumonia Patient is a 28-year-old female with a past medical history of dependent for reflux, anxiety and depression presenting to the hospital after the patient overdosed on 50-90 Wellbutrin tablets subsequent did have a agitation respiratory distress requiring revision admission to the ICU ID consulted because of concern for aspiration pneumonia.The patient is status post tracheostomy and PEG tube placement on 07/05/2024. On today's visit there is 07/07/2024, the patient did have a temperature of 100. 7 F this morning with a temperature of 100.4 at noon patient remains to be intubated through the trach with FiO2 of 60% hemodynamically stable not requiring pressor support no other changes reported by the nursing staff. Patient white count is 10.1 creatinine is 0.50 blood culture negative Objective - Vital Signs Vital signs: Vital Signs Temp 100.4 F H 07/07/24 12:00 Pulse 82 07/07/24 12:00 Resp 23 07/07/24 12:00 BP 151/106 07/07/24 12:00 Pulse Ox 95 07/07/24 12:00 FiO2 60 07/07/24 12:00 Intake & Output 07/06/24 07/07/24 07/07/24 18:59 06:59 18:59 Intake Total 2024.494 1476.812 804.580 Output Total 0 1925 1375 Balance -784.506 -448.188 -570.420 Weight 140.4 kg 138.7 kg 138.7 kg Intake: IV 1522 1060 560 0.9 @ KVO 130 110 60 Ampicillin-Sulbactam 3 gm 200 In Sodium Chloride 0.9% 100 ml @ 200 mls/hr IVPB Q6HR [facility] Rx#:[id number] Anidulafungin 100 mg In 100 Sodium Chloride 0.9% 100 ml @ 84 mls/hr IVPB DAILY @1200 [facility] Rx#:[id number] Dextrose 5%-0.9% NaCl 1, 650 550 300 000 ml @ 50 mls/hr IV . Q20H [facility] Rx#:[id number] Invasive Line 6 30 Valproate Sodium 250 mg 700 200 100 In Sodium Chloride 0.9% 100 ml @ 100 mls/hr IVPB Q6HR [facility] Rx#:[id number] a-line 3ml 12 Intake, IV Titration 473.494 161.812 44.580 Amount Midazolam HCl 200 mg In 94.750 3.183 Sodium Chloride 0.9% 160 ml @ 11 MG/HR 11 mls/hr IV .[id number] [facility] Rx#: [id number] propofoL 1,000 mg In 378.744 158.629 44.580 Empty Bag 1 bag @ 15 MCG/ KG/MIN 9.846 mls/hr IV . [id number] [facility] Rx#:[id number] Tube Feeding 30 165 140 Other 90 60 Output: Urine 2810 1925 1375 Other: Voiding Method Indwelling Catheter Indwelling Catheter Indwelling Catheter ABP, PAP, CO, CI - Last Documented Arterial Blood Pressure 112/61 - Exam GENERAL DESCRIPTION: Middle-age female intubated through the trach RESPIRATORY SYSTEM: Unlabored breathing , decreased breath sounds at bases HEART: S1 S2 regular rate and rhythm , ABDOMEN: Soft , no tenderness EXTREMITIES: No edema feet - Labs CBC & Chem 7: 07/07/24 05:06 07/07/24 05:06 Labs: Abnormal Lab Results - Last 24 Hours (Table) 07/07/24 07/07/24 Range/Units 05:06 05:49 ABG pH 7.50 H (7.35-7.45) ABG pCO2 31 L (35-45) mmHg ABG pO2 70 L (83-108) mmHg ABG Total CO2 25 H (19-24) mmol/L Chloride 111 H (98-107) mmol/L Creatinine 0.50 L (0.52-1.04) mg/dL Calcium 8.0 L (8.4-10.2) mg/dL Assessment and Plan (1) Sepsis Current Visit: Yes Status: Acute Code(s): A41.9 - SEPSIS, UNSPECIFIED ORGANISM SNOMED Code(s): 86280784 (2) Pneumonia Current Visit: Yes Status: Acute Code(s): J18.9 - PNEUMONIA, UNSPECIFIED ORGANISM SNOMED Code(s): 146472841 (3) MSSA (methicillin susceptible Staphylococcus aureus) infection Current Visit: Yes Status: Acute Code(s): A49.01 - METHICILLIN SUSCEP STAPH INFECTION, UNSP SITE SNOMED Code(s): 269604785 Plan: 1patient presenting the hospital with drug overdose with subsequent agitation respiratory distress requiring intubation concerning for possible aspiration pneumonia sputum is now growing MSSA in this patient who did have features of sepsis with fever elevated white count and hypotension requiring low-dose pressor support on initial evaluation. 2-patient did have resolution of her fever the patient white count normalized blood culture have been negative so far, sputum is growing MSSA with the patient is being treated with Unasyn duration will be 10 days total 3patient has developed extensive vaginal area candidiasis unable to use Diflucan because of drug interaction currently on Eraxis, duration total will be 5 days discussed with the nursing staff yesterday 4groin area candidiasis treated with with nystatin powder twice a day x 7 days 5-the patient did have a low-grade fever this morning however the white count is normal that will be monitored closely Dictation was produced using Singly dictation software. please excuse any grammatical, word or spelling errors. Time with Patient: Less than 30
[2024-07-07 17:23] LABS: Glucose,Whole Blood 102 mg/dL (70-110)
--- NOTE | 2024-07-07 20:23 | EEG ---
ELECTROENCEPHALOGRAM REPORT PREAMBLE: This is a 28-year-old female with Wellbutrin overdose. This study is performed because the patient is now off sedation to rule out any epileptiform activity. EEG FINDINGS: This is a 21-channel digital EEG recorded with video component, utilizing 10/20 international system with referential and bipolar montages. Background consists of well developed, well regulated moderate voltage activity around 8 hertz alpha. Background is posterior dominant and does not seem to be clearly reactive to eye opening or closing. Intermittent frontal rhythmic delta activity was seen. Photic stimulation was not performed. Different stages of sleep were not seen. No focal or generalized epileptiform activity was seen. IMPRESSION: Abnormal EEG due to presence of sporadic intermittent frontal rhythmic delta activity. This may suggest mild encephalopathy. Otherwise, the background appears to be normal. When compared to the EEG from 07/04/2024, the background has remarkably improved. No epileptiform activity was seen. MMODL / IJN: [id number] /
[2024-07-07 23:19] LABS: Glucose,Whole Blood 93 mg/dL (70-110)
[2024-07-08 05:42] LABS: Glucose,Whole Blood 93 mg/dL (70-110)
[2024-07-08 05:43] LABS: ABG Base Excess 2.4 mmol/L; ABG HCO3 25 mmol/L (21-25); ABG Oxygen Saturation 98.7 % (94-97); ABG PCO2 33 mmHg (35-45); ABG PO2 111 mmHg (83-108); ABG TCO2 26 mmol/L (19-24); Allen Test Performed? Yes
--- NOTE | 2024-07-08 06:54 | XR ---
EXAMINATION TYPE: XR chest 1V portable DATE OF EXAM: 07/08/2024 COMPARISON: 07/07/2024 CLINICAL INDICATION: Female, 28 years old with history of follow up; TECHNIQUE: Single frontal view of the chest is obtained. FINDINGS: There is no change in the tracheostomy tube. There is persistent moderate elevation the right hemidiaphragm with stable mild right lower lobe infi ltrate/atelectasis. There is an interval decrease in the left lower lobe opacity consistent with pneumonia or atelectasis . Pleural effusions have completely or nearly completely resolved. There is no pneumothorax. IMPRESSION: Decreasing acute cardiopulmonary process as described above. [facility], , 07/08/2024 6:52 AM
--- NOTE | 2024-07-08 08:39 | P.PN ---
Subjective Progress Note Date: 07/07/24 07/07/2024: Patient was seen for follow-up. Patient is opening her eyes, but severely encephalopathic. Does not make eye contact, does not track. Does not blink to visual threat. Per nurse report, she has episodes of profuse crying, sobbing. Patient is not following any commands. 07/06/2024: Patient was seen for follow-up. Patient had undergone tracheostomy and PEG tube placement yesterday. At present patient is on propofol 50 mcg/kg per minute, also on Versed 4 mg per hour. Patient is still sedated/comatose. 07/04/2024: Patient was seen for a follow-up. Patient is essentially unchanged. Still on propofol 75, fentanyl 1.5, Versed 15. Patient is off Nimbex. Per nurse report, after the Nimbex was discontinued, patient started becoming restless, and then desaturated. She was on propofol 50 mcg but then the dose was increased to 75 mcg along with higher dose of fentanyl and Versed. No seizure-like activity noticed. 07/03/2024: Patient was seen for a follow-up. Patient is essentially unchanged. Still on propofol 50, fentanyl 0.5, Versed 11 and Nimbex 1.5. No seizure-like activity. 07/02/2024: Patient initially seen by Dr. Jose Angel Mccoy. Please refer to his note for details. Patient is a 28-year-old female came with Wellbutrin overdose. Ingested at [place] 50 tablets of Wellbutrin. Patient had seizure-like activity and is on Depakote, maxed on Versed and propofol. 2 EEGs have been negative. Patient was seen for follow-up. Patient continues to be intubated, sedated on propofol 50 mcg/kg/min. Also on fentanyl 0.5 mcg/kg/h and Versed 11 mg/h. Patient also on Nimbex 1 mg/kg/min. Per nursing report, patient became acutely agitated, tried to sit up, vomited, and then aspirated really bad. Patient is on antibiotics. No seizure-like activity has been noticed since patient is on Depakote. Patient is on maximal dose of Versed and propofol. Patient is also on thiamine 100 mg IV daily. Patient was given phenobarbital x 1 dose as recommended by the poison control. Some of the workup at this hospital visit consisted of: White blood cell is within normal limits Level is for 96 Calcium is 6.1 and ionized calcium is 4.7 Magnesium is 1.2 POC glucose is 56 and repeated is in the low 100s. Sodium is within normal limits UDS is positive for benzo as well as marijuana. Routine EEG on 06/26/2024: Is abnormal. The background slowing is suggestive of mild encephalopathy likely due to toxic-metabolic derragement as well as medication use (IV Propofol, Versed and Ativan). Otherwise, no focal slowing, epileptiform discharges or seizures. CT head: No acute intracranial hemorrhage or midline shift is seen. Vauge areas of low attenuation in the bilateral cerebellar hemispheres slightly more prominent on the right are identified. Ischemic injury is in the differential. Other etiologies not excluded. I personally reviewed CT and I personally could not rule out artifact as well. Repeat CT of the head is reported as no acute intracranial process. No significant interval change from the comparison. Repeat EEG: Is abnormal. The background slowing is suggestive of severe encephalopathy. Severe encephalopathy is likely due to toxic metabolic derangement as well as medication induced. The diffuse suppression is likely due to medication induced (Versed as well as Ativan and propofol). Otherwise there is no focal slowing, OptiForm discharge or seizure on the EEG. Patient probably Objective - Vital Signs Vital signs: Vital Signs Temp 100.4 F H 07/07/24 12:00 Pulse 90 07/07/24 15:00 Resp 25 H 07/07/24 15:00 BP 153/96 07/07/24 15:00 Pulse Ox 98 07/07/24 15:00 FiO2 60 07/07/24 15:16 Intake & Output 07/06/24 07/07/24 07/07/24 18:59 06:59 18:59 Intake Total 2024.494 0926.491 5747.580 Output Total 2810 1925 2250 Balance -784.506 -448.188 -1160.420 Weight 140.4 kg 138.7 kg 138.7 kg Intake: IV 1522 1060 740 0.9 @ KVO 130 110 90 Ampicillin-Sulbactam 3 gm 200 In Sodium Chloride 0.9% 100 ml @ 200 mls/hr IVPB Q6HR [facility] Rx#:[id number] Anidulafungin 100 mg In 100 Sodium Chloride 0.9% 100 ml @ 84 mls/hr IVPB DAILY @1200 [facility] Rx#:[id number] Dextrose 5%-0.9% NaCl 1, 650 550 450 000 ml @ 50 mls/hr IV . Q20H [facility] Rx#:[id number] Invasive Line 6 30 Valproate Sodium 250 mg 700 200 100 In Sodium Chloride 0.9% 100 ml @ 100 mls/hr IVPB Q6HR [facility] Rx#:[id number] a-line 3ml 12 Intake, IV Titration 473.494 161.812 44.580 Amount Midazolam HCl 200 mg In 94.750 3.183 Sodium Chloride 0.9% 160 ml @ 11 MG/HR 11 mls/hr IV .[id number] [facility] Rx#: [id number] propofoL 1,000 mg In 378.744 158.629 44.580 Empty Bag 1 bag @ 15 MCG/ KG/MIN 9.846 mls/hr IV . [id number] [facility] Rx#:[id number] Tube Feeding 30 165 245 Other 90 60 Output: Urine 2810 1925 2250 Other: Voiding Method Indwelling Catheter Indwelling Catheter Indwelling Catheter ABP, PAP, CO, CI - Last Documented Arterial Blood Pressure 112/61 - Exam Patient is intubated. She is off Versed. She is on propofol 15 mcg/kg per minute. Patient is severely encephalopathic. Her eyes are open, she blinks, but does not make eye contact, does not track or follow directions. She does not blink to visual threat. Pupils are equal, round and reacting. Oculocephalics are present. Patient not responding to any painful stimuli. No seizure-like activity. Reflexes are 2+ at the knees. Patient has 2+ peripheral edema. Nurses mentioned that she is moving her legs spontaneously, but not moving her a pedro. - Labs CBC & Chem 7: 07/07/24 05:06 07/07/24 05:06 Labs: Abnormal Lab Results - Last 24 Hours (Table) 07/07/24 07/07/24 Range/Units 05:06 05:49 ABG pH 7.50 H (7.35-7.45) ABG pCO2 31 L (35-45) mmHg ABG pO2 70 L (83-108) mmHg ABG Total CO2 25 H (19-24) mmol/L Chloride 111 H (98-107) mmol/L Creatinine 0.50 L (0.52-1.04) mg/dL Calcium 8.0 L (8.4-10.2) mg/dL Assessment and Plan Assessment: This is a 28-year-old woman with a history of borderline personality disorder who presented emergency department because of a suicidal attempt by taking multiple Wellbutrin tablets. Questionable few episode of seizure-like activity: Unsure if patient is having withdrawing symptoms. If she did have a seizure its likely provoked due to her metabolic derangement and perhaps due to lowering seizure threshold from Wellbutrin. She had 4 EEGs performed so far and negative for seizure or discharges. Patient is now on low-dose propofol 15 g/kg/min and is on Depakote. Metabolic encephalopathy, severe degree Status post tracheostomy and PEG tube placement 07/05/2024 Suicidal attempt Hypoglycemia Hypomagnesium History of borderline personality disorder Plan: * Patient is being weaned off sedation. Patient is off Versed drip and on low- dose propofol. * EEG was performed today, and it was abnormal due to presence of sporadic intermittent frontal rhythmic delta activity. This may suggest underlying encephalopathy. Otherwise the background appears to be normal. When compared to the EEG from 07/04/2024, the background has remarkably improved. No epileptiform activity was seen. * Patient never had any epileptiform activity seen on the EEG. We will start tapering down Depakote. We will decrease it down to 250 mg twice a day starting from tomorrow. Patient has been on Depakote 250 mg 4 times a day. If he remains stable, may completely taper it off in the next few days. * Repeat CT head performed on 06/29/2024, which revealed no acute intracranial process. * EEG 07/04/2024 was abnormal due to background slowing of moderate to severe degree. This is suggestive of generalized cerebral dysfunction as can be seen with toxic metabolic encephalopathy or related to diffuse structural brain abnormality. Clinical correlation is recommended. No obvious epileptiform activity was seen. When compared to the EEG from 06/29/2024, the intermittent background suppression seen in the previous study has resolved, but now has replaced with diffuse high amplitude theta and delta slowing as mentioned above. Follow-up EEG recommended, if clinically indicated. * Seizure precaution and pads * Psychiatry is consulted * Please avoid any further hypoglycemia and will defer correction of the electrolyte imbalance to primary and ICU team. * Will defer the rest of the medical management to primary other specialist * Patient is status post tracheostomy and PEG tube placement 07/05/2024. * Plan discussed with the ICU nurse. * Dr. Jose Angel Mccoy to resume neurology service from the morning.
[2024-07-08 09:36] LABS: Basophils % (A) 0 %; Eosinophils % (A) 0 %; HCT 40.6 % (34.0-46.0); HGB 12.9 gm/dL (11.4-16.0); Hypochromasia Slight; Lymphocytes # (A) 1.7 k/uL (1.0-4.8); Lymphocytes % (A) 11 %; MCH 31.1 pg (25.0-35.0); MCHC 31.8 g/dL (31.0-37.0); MCV 97.9 fL (80.0-100.0); Mean Platelet Volume 7.5; Monocytes # (A) 0.6 k/uL (0-1.0); Monocytes % (A) 4 %; Neutrophils # (A) 12.5 k/uL (1.3-7.7); Neutrophils % (A) 84 %; Platelet Count 273 k/uL (150-450); RBC 4.15 m/uL (3.80-5.40); WBC 14.9 k/uL (3.8-10.6)
[2024-07-08 09:46] LABS: ALT 96 U/L (4-34); AST 69 U/L (14-36); African American GFR (CKD) >90 (>60 ml/min/1.73 sqM); Albumin 3.5 g/dL (3.5-5.0); Alkaline Phosphatase 91 U/L (38-126); Anion Gap 10 mmol/L; Blood Urea Nitrogen 12 mg/dL (7-17); Calcium 8.9 mg/dL (8.4-10.2); Carbon Dioxide 22 mmol/L (22-30); Chloride 110 mmol/L (98-107); Glucose 117 mg/dL (74-99); Magnesium 1.9 mg/dL (1.6-2.3); Non-African American GFR(CKD) >90 (>60 ml/min/1.73 sqM); Potassium 3.5 mmol/L (3.5-5.1); Sodium 142 mmol/L (137-145); Total Bilirubin 0.7 mg/dL (0.2-1.3); Total Protein 6.6 g/dL (6.3-8.2)
--- NOTE | 2024-07-08 09:51 | P.PN ---
Progress Note - Text Progress Note Date: 07/08/24 CHIEF COMPLAINT: Intentional overdose HISTORY OF PRESENT ILLNESS: Patient is postop day #3 status post tracheostomy and PEG tube placement. No acute events overnight. Tolerating tube feeds at goal. PHYSICAL EXAM: VITAL SIGNS: Reviewed. GENERAL: no acute distress. HEENT: Tracheostomy site with small amount of serosanguineous oozing noted ABDOMEN: Soft. Obese. PEG tube site clean dry and intact ASSESSMENT: 1. Acute respiratory failure s/p intubation to protect airway after patient received significant sedation for agitation from Wellbutrin overdose and had an aspiration pneumonia 2. Severe protein calorie malnutrition 3. Suicide attempt with Wellbutrin overdose PLAN: -Continue Tube Feeds at goal -Continue ICU management -Continue supportive care Khoa Pruett DO [facility] [phone]
[2024-07-08] MEDS: VALPROATE SODIUM 250 MG in SODIUM CHLORIDE 0.9% 100 ML IVPB SCH (10:00)
--- NOTE | 2024-07-08 10:14 | P.PN ---
Subjective Progress Note Date: 07/08/24 28 year old F with PMH of anxiety and borderline personality disorder on Wellbutrin presented after intentional ingestion of Wellbutrin. Patient is psychotic at the time my evaluation does not provide reliable history. According to ER provider signout as well as chart review, patient ingested somewhere between 50-90 extended release Wellbutrin tablets and an overdose attempt. Patient is clearly agitated, tachycardic at the time my evaluation. Upon arrival patient was afebrile, 148/96, heart rate 83. Patient subsequently received activated charcoal, was started on IV fluids, and given a total of 7 mg of Ativan while on continuous telemetry, with heart rates increasing to the 130s to 140s. The ER provider did contact poison control control who recommended medical monitoring until patient is stable for transfer to the mental health unit. Review of lab work shows normal CBC, CO2 of 20, ALT of 91, negative troponin, normal lactic acid, negative salicylate level, alcohol level, Tylenol level. Initial EKG shows normal sinus rhythm with a short IA interval and right axis deviation. Patient was admitted to the cardiac selective floor with telemetry, with low threshold for ICU escalation. Received multiple doses of Ativan + Librium, remained agitated, intubated on 06/27. Concerns for aspiration on 06/28, started on Zosyn with Vancomycin added for staph sputum Cx. IV consulted, switched to Unasyn on 06/29. Concerns for seizures, started on Depakote, Neurology consulted. CT head showed no acute hemorrhage, areas of low-attenuation in the bilateral cerebellar hemisphere slightly more prominent on the right, per neurology, could be artifact. EEG done in was abnormal, showed background slowing suggestive of mild encephalopathy likely due to toxic metabolic derangement as well as m edication use, no epileptiform discharges, seizures. Poison control recommended phenobarbital 570 mg IV x1 on 06/29. Difficulty with extubation, CTA chest 07/02 showed no PE, multifocal PNA, cardiomegaly with small pleural effusions. Plan is for trach/PEG. 07/04 Patient was seen and examined. Intubated. Sedation and paralytics include Nimbex at 2 mcg/kg/hr, Fentanfyl at 0.5 mcg/kg/hr, Propofol at 50 mcg/kg/hr, and Midazolam at 11 mg/hr. Vent settings include rate 16, tidal volume 500, FiO2 60% with PEEP of 12. Antibiotics include Unasyn 3g IV TID. Currently on D5W at 50 cc/hr. CBC, BMP significant for RBC 3.15, Hg 9.5 Hct 31.5, Cl 109, Cr 0.42, glu 104, Ca 7.8. ABG pH 7.43, pCO2 41, pO2 73 with FiO2 60%. CXR bibasilar airspace opacities. 07/05 Patient was seen and examined. Intubated. Nimbex and Fentanfyl weaned off. Currently on Propofol at 75 mcg/kg/hr, and Midazolam at 15 mg/hr. Vent settings include rate 16, tidal volume 500, FiO2 60% with PEEP of 12. Antibiotics include Unasyn 3g IV TID. Anidulafungin 100 mg IV QD started by ID today. Currently on D5W at 50 cc/hr. CBC, BMP significant for RBC 3.14, Hg 9.8 Hct 30.8, Cl 109, Cr 0.37, Ca 8. ABG pH 7.47, pCO2 37, pO2 69 with FiO2 60%. CXR shows persistent bibasilar airspace opacities. Plans for trach and PEG today. 07/06 Patient was seen and examined. Intubated. Underwent trach and PEG yesterday. Currently on Propofol at 50 mcg/kg/hr, and Midazolam at 6 mg/hr. Vent settings include rate 16, tidal volume 500, FiO2 60% with PEEP of 12. Antibiotics include Unasyn 3g IV TID. Anidulafungin 100 mg IV QD started by ID 07/05. CBC, BMP sig nificant for MCV 102.5, Cl 110, Cr 0.48, Ca 8.2, glu 66. ABG pH 7.51, pCO2 32, pO2 62 with FiO2 60%. CXR shows persistent bibasilar airspace opacities with tracheostomy. 07/07 Patient was seen and examined. Intubated. Currently on Propofol at 10 mcg/kg/hr. Midazolam weaned off. Vent settings include rate 16, tidal volume 500, FiO2 60% with PEEP of 12. Antibiotics include Unasyn 3g IV TID. Anidulafun gin 100 mg IV QD started by ID 07/05. CBC, BMP significant for Cl 111, Cr 0.5, Ca 8. ABG pH 7.5, pCO2 31, pO2 70 with FiO2 60%. CXR shows persistent bibasilar airspace opacities with tracheostomy. 07/08 Patient was seen and examined. Intubated. Currently on Propofol at 20 mcg/kg/hr. Vent settings include rate 16, tidal volume 500, FiO2 60% with PEEP of 12. Antibiotics include Unasyn 3g IV TID. Anidulafungin 100 mg IV QD started by ID 07/05. CBC, CMP significant for WBC 14.9, Cl 110, Cr 0.43, glu 117, AST 69, ALT 96. ABG pH 7.5, pCO2 33, pO2 111 with FiO2 60%. CXR shows improved bibasilar airspace opacities with tracheostomy. EEG shows findings of mild encephalopathy. General: Intubated. Obese. Derm: warm, dry Head: atraumatic, normocephalic, symmetric Eyes: no lid lag, anicteric sclera, opens eyes but does not track Mouth: no lip lesion, mucus membranes moist Cardiovascular: S1S2 reg, no murmur Lungs: Bilateral rhonchi, no rales , no accessory muscle use Ext: no gross muscle atrophy, no edema, no contractures Neuro: Unable to determine Psych: Unable to determine Based on my assessment of this patient, this patient meets a high complexity level of care. Acute respiratory failure s/p intubation for airway protection 06/27: CTA chest negative for PE but does show multifocal PNA with cardiomegaly and small pleural effusions. Status post PEG/Trach 07/05. Sputum culture growing Staph aureus: Unasyn as below. Sepsis likely secondary to aspiration pneumonia: Continue Unasyn 3g IV TID per ID recommendations. Tylenol 650 mg PO Q6H PRN fever. Elevated HOB. Aspiration precautions. Vent management per Pulmonary. Acute metabolic encephalopathy due to below: EEG shows encephalopathy. CT head 06/29 no acute process. Continue Valproic acid 500 mg PO BID. Seizure precautions. Neurology on board. Intentional overdose with Wellbutrin Iron def anemia: Iron level of 9. Defer IV iron while treating active infection. Monitor Hg. Transfuse if Hg < 7. Constipation: Miralax 17g PO QHS. Lactulose 20g PO QD PRN. Anxiety and Borderline personality disorder: Pyschiatry on board. Resolved: Metabolic acidosis, Hypokalemia, Hypomagnesemia CODE STATUS: FULL CODE. DVT Prophylaxis: Heparin SQ GI Prophylaxis: Protonix IV Designated medical POA if patient is not able to make medical decisions for themselves: I have reviewed the following websphere consultant notes: Surgery. I have reviewed the results of the following tests: CBC, CMP, ABG, EEG. I have ordered the following tests: I have discussed the care of this patient with the following independent historian: I have independently interpreted the following test below: CXR I have discussed the management of this patient with the following physician: Objective - Vital Signs Vital signs: Vital Signs Temp 99.0 F 07/08/24 08:00 Pulse 76 07/08/24 09:00 Resp 21 07/08/24 09:00 BP 153/102 07/08/24 09:00 Pulse Ox 95 07/08/24 09:00 FiO2 50 07/08/24 10:01 Intake & Output 07/07/24 07/08/24 07/08/24 18:59 06:59 18:59 Intake Total 9116.478 3767.152 378.628 Output Total 2575 3700 1425 Balance -1129.559 -2196.848 -1046.372 Weight 138.7 kg 137.4 kg Intake: IV 920 820 180 0.9 @ KVO 120 120 30 Ampicillin-Sulbactam 3 gm 100 In Sodium Chloride 0.9% 100 ml @ 200 mls/hr IVPB Q6HR [facility] Rx#:[id number] Anidulafungin 100 mg In 100 Sodium Chloride 0.9% 100 ml @ 84 mls/hr IVPB DAILY @1200 [facility] Rx#:[id number] Dextrose 5%-0.9% NaCl 1, 600 600 150 000 ml @ 50 mls/hr IV . Q20H [facility] Rx#:[id number] Valproate Sodium 250 mg 100 In Sodium Chloride 0.9% 100 ml @ 100 mls/hr IVPB Q6HR [facility] Rx#:[id number] Intake, IV Titration 85.441 118.152 48.628 Amount propofoL 1,000 mg In 85.441 118.152 48.628 Empty Bag 1 bag @ 15 MCG/ KG/MIN 9.846 mls/hr IV . [id number] [facility] Rx#:[id number] Tube Feeding 350 475 120 Other 90 90 30 Output: Urine 2575 3700 1425 Other: Voiding Method Indwelling Catheter Indwelling Catheter Indwelling Catheter ABP, PAP, CO, CI - Last Documented Arterial Blood Pressure 112/61 - Labs CBC & Chem 7: 07/08/24 09:24 07/08/24 09:24 Labs: Abnormal Lab Results - Last 24 Hours (Table) 07/08/24 07/08/24 07/08/24 Range/Units 05:38 09:24 09:24 WBC 14.9 H (3.8-10.6) k/uL Neutrophils # 12.5 H (1.3-7.7) k/uL ABG pH 7.50 H (7.35-7.45) ABG pCO2 33 L (35-45) mmHg ABG pO2 111 H (83-108) mmHg ABG Total CO2 26 H (19-24) mmol/L ABG O2 Saturation 98.7 H (94-97) % Chloride 110 H (98-107) mmol/L Creatinine 0.43 L (0.52-1.04) mg/dL Glucose 117 H (74-99) mg/dL AST 69 H (14-36) U/L ALT 96 H (4-34) U/L
[2024-07-08] MEDS: MAGNESIUM SULFATE-D5W PMX 1 GM in DEXTROSE/WATER 1 100ML.BAG IVPB ONE (10:41)
[2024-07-08] MEDS: POTASSIUM CHLORIDE 20 MEQ in WATER FOR INJECTION 1 100ML.BAG IVPB SCH ×2 (10:42→20:30)
--- NOTE | 2024-07-08 11:28 | P.PN ---
Subjective Progress Note Date: 07/08/24 This is a 28-year-old female with history of borderline personality disorder, presented yesterday to the ER with intentional suicidal attempt by taking multiple Wellbutrin tablets. According to the chart patient may have taken about 30 tablets. Patient stated to the ER physician that she does not want to live like this anymore, and she took many tablets of Wellbutrin. This was obviously a suicidal attempt. Patient received activated charcoal, patient was admitted to the medical floor, however this morning patient was becoming more and more agitated and restless, becoming more lightheaded, patient was getting quite tachycardic, and hypertensive. Has been receiving Ativan and Librium overnight, rapid response team responded to the patient this morning and she received additional 8 mg of Ativan, 50 mg of Benadryl and 5 mg of Haldol. Continued to be agitated and requiring 4 point restraints. At this point patient was intubated, placed on propofol drip and Versed drip, transferred to the ICU, and I saw her on consultation upon arrival. Patient required lines placement including a right femoral triple-lumen catheter and right radial arterial line which was done on emergency basis as the patient had very poor peripheral IV access. Patient was intubated and mechanically ventilated, she is on assist-control rate of 16 tidal volume 450 FiO2 50% and PEEP of 5 ABG showed a pO2 of 364 pCO2 of 39 pH of 7.29 she received 1 amp of bicarb. Patient was on propofol at 50 mcg/kg/min Versed at 3 mg/h IV fluid 0.9 at 75 cc/h and she is on the usual ICU protocol for GI and DVT prophylaxis she is also on ventilatory support, and will address nutritional support later today or tomorrow. CBC showed WBC of 6.3 hemoglobin 12.4 electrolytes showed low potassium of 3.0 being addressed accordingly, labs were all reviewed, test was negative. Drug screen showed positive for benzodiazepines and positive for marijuana. Otherwise was negative. Patient was evaluated today on 06/27/2024, remains in the ICU, intubated and mechanically ventilated. Patient is on assist-control rate of 16 tidal volume 450 FiO2 40% PEEP of 5 ABG showed a pO2 of 114 pCO2 38 pH of 7.43. Patient remains on propofol at 50 mcg/kg/min she is also on Versed at 5 mg/h and earlier this morning the patient developed low urine output, and low blood pressure, she received multiple fluid boluses about 3 L, and she had to be placed on norepinephrine at 0.01 mcg/kg/min, I feel the hypotension is most likely related to excessive sedation, and her poor urine output is secondary to low blood pressure. Today I recommended that we cut down on her sedation and hopefully try to transition the patient to Precedex if possible. Apparently this was attempted but the patient woke up suddenly and vomited, and was noted to be restless and agitated has recommended that she goes back on Versed and propofol and the dose to be titrated. Patient has not had any seizure activity, she remains on GI and DVT prophylaxis, heparin subcu, remains on seizure precautions, labs today show WBC count of 4.9 hemoglobin 10.8, electrolytes were noted to be normal renal profile is normal creatinine 0.68 CPK elevated at 508 and this is very related to her recent seizure. Chest x-ray continues to show bibasilar atelectasis, doubt infiltrate. Although patient is set up for aspiration. The chest x-ray is not quite impressive to consider starting empiric antibiotics. Patient was seen today on 06/28/2024, patient remains in the ICU, intubated and mechanically ventilated, she is on assist-control rate of 16 tidal volume 400 FiO2 50% and PEEP of 5. Patient had an earlier blood gas on 40% FiO2 which showed a pO2 of 54 pCO2 29 pH of 7.50 and apparently the gas was done earlier shortly after she was witnessed to have an aspiration episode as she woke up and became agitated, she aspirated and developed right lower lobe ate lectasis/infiltrate and possibly a small right-sided pleural effusion hence her FiO2 was increased to 50%. Patient is on propofol at 50 mcg/kg/min, Versed and 13 mg/h norepinephrine at 0.02 mcg/kg/min vital HP at 40/45 and IV fluid 0.9 normal saline at 75 cc/h. WBC count is 7.6 hemoglobin is 11.2, basic metabolic profile is relatively normal however her bicarb is 15 potassium is 2.8, anion gap is 6, and her creatinine kinase is 496. Sputum cultures today are showing presumptive Staph aureus, patient was placed earlier today on Zosyn and now I will go ahead and add vancomycin. Patient was seen today on 06/29/2024, patient remains in the ICU, intubated and mechanically ventilated, continues to have intermittent episodes of seizure-like activities although the patient is maximized on propofol at 50 mcg/kg/min on Versed at 15 mg/h patient is requiring norepinephrine at 0.04 mcg/kg/min she is on 0.9 normal saline at 75 cc/h and vital HP at 45 cc/h. CT of the head showed some questionable ischemic injury being addressed by neurology, and recommending eventually MRI. Patient remains on Zosyn and vancomycin for aspiration pneumonia and positive sputum for MRSA. Remains on assist-control rate of 16 tidal volume 400 FiO2 50% and PEEP of 5 ABG showed a pO2 of 70 pCO2 30 pH of 7.42. Hence no changes were made in vent settings. Infectious disease was consulted for her positive Staph aureus in the sputum in the meantime we will continue with vancomycin and Zosyn. Patient clearly had aspiration pneumonia chest x-ray is consistent with aspiration pneumonia. At this point in time the patient is not ready for any weaning as she gets extremely restless and agitated and again she has these episodes of seizure-like activities, Poison control recommended phenobarbital. Patient will be given a dose of phenobarbital x 1. Labs today show WBC is 14.3 hemoglobin 11.2, basic metabolic profile is normal electrolytes are normal bicarb is a bit low at 19 renal profile is normal. CPK is coming down to 302. Patient was seen today on 06/30/2024, remains in the ICU, remains intubated and mechanically ventilated, she is on assist-control rate of 16 tidal volume 400 FiO2 60% and PEEP up to 10. ABG showed a pO2 of 96 pCO2 34 pH of 7.40 her PEEP was at 5 prior to this blood gas, and I increased the PEEP up to 10. Patient remains on Versed at 15 mg/h patient is also on propofol at 75 mg/kg/min norepinephrine is presently on hold patient is receiving fluid at 75 cc/h she is also on vital / patient is now on Unasyn, and her vancomycin was discontinued because the sputum was positive for MSSA and not MRSA. Urine output is adequate about 50 to 60 cc/h patient received 1 dose of phenobarbital yesterday for extreme agitation, and questionable seizures, neurology has the patient now on Depakote. Overall the patient is not making much improvement, her chest x-ray continues to show worsening of her aspiration pneumonia. And her FiO2 requirement remains relatively high, PEEP was increased today up to 10. Labs today showed WBC count of 12.1 hemoglobin 9.9. Platelets are 191. Basic metabolic profile is normal bicarb is 21 BUN is 6 creatinine 0.45 CPK is down to 248. Patient is now on Unasyn, heparin subcu, Ativan as needed, propofol and Versed, pantoprazole, she received 1 dose of phenobarbital, patient is also receiving valproic acid and Tigan. She is also receiving thiamine Seen today on 07/01/2024, patient remains about the same, remains critically ill, remains intubated mechanically ventilated, on assist-control rate of 16 tidal volume 400 FiO2 60% PEEP of 10 ABG remains marginal with a pO2 of 72 pCO2 34 pH of 7.40. Still requiring significant amount of sedation including Versed at 14 mg/h, norepinephrine at 0.02 presently on hold, she is on propofol at 75 mcg/kg/min. , IV fluids 0.9 normal saline at 75 cc/h. Chest x-ray continues to show significant bilateral airspace disease specially right lower lobe and left lower lobe consistent with aspiration pneumonia. Patient remains on antibiotics. WBC count today is 9.8 hemoglobin 9.9. Electrolytes showed low potassium of 3.3 being addressed accordingly, otherwise the patient has normal renal functioning. Remains on nutritional support/enteral feeding. Patient was seen today on 07/02/2024, remains in the ICU, intubated and mechanically ventilated, sedated, and paralyzed. Yesterday the patient continued to have significant agitation and spite of significant sedation including high-dose propofol, and high-dose Versed, she Desaturating frequently, and FiO2 was increased up to 70%, PEEP was increased up to 12, hence I recommended Nimbex to be started, patient was bolused and placed on Nimbex drip. Remains on Nimbex drip at 1 mcg/kg/min, remains on IV fluid at 50 cc/h in the form of D5.9 she is on fentanyl at 0.5 mcg/kg/h Versed is down to 12 mg/h propofol at 50 mcg/kg/min, patient was also placed on Decadron yesterday for her extensive pneumonic process involving both lower lobes, this was felt to be aspiration pneumonia. Her sputum has been positive for MSSA. Patient remains o n GI and DVT prophylaxis. Vent settings today on AC rate of 16 tidal volume of 400 was increased to 500 yesterday, FiO2 down to 50% PEEP is 12 her ABG showed a pO2 of 95 pCO2 54 pH of 7.25 and that is when her tidal volume was increased to 500. Patient remains on nutritional support/enteral feeding, today she is not requiring norepinephrine but she has been intermittently on norepinephrine. Uri ne output is good about 50 to 60 cc/h. Chest x-ray continues show bilateral extensive infiltrates involving right lower lobe and left lower lobe. Labs today WBC count is 10.1 hemoglobin is 10.3 repeat ABG after vent setting changes showed a pO2 of 74 pCO2 42 pH of 7.37 and this is on 50% FiO2. 07/03/2024: This is a 28-year-old female with history of borderline personality disorder admitted to ICU on 06/26 and was subsequently intubated due to acute respiratory failure secondary to Wellbutrin overdose. According to the chart patient may have taken about 30-90 tablets. Patiente was intubtated on 06/26 due to extreme agitation and restlessness. Patient was seen today on 07/02/2024, she remains in ICU mechanically ventilated, sedated, and paralyzed. She is on assist-control at a rate of 16, tidal volume of 500, FiO2 at 70%, PEEP of 12. ABG this morning showing pH of 7.4, pCO2 44, pO2 69. Currently on Nimbex 1.5 mcg/mg/min, propofol 50 mcg/kg/min, fentanyl 0.5mcg/kg/hr, Versed 11 mg/hr, and propofol 50 mcg/kg/min. Intermittently has been on norepinephrine, but is currently not requiring it at this moment. Last weaning trial was on 06/29. Tube nutritional support/enteral feeding vital HP at goal. No overnight events. Chest x-ray showing patchy basilar infiltrates, no change from prior. Remains on Unasyn at 200 MLS/HR IVPB every 6 hours due to aspiration pneumonia. Remains on Decadron 6 mg IVP every 6 hours. Labs: WBC 8.5, Hgb 9.9 1, HCT 33.2, platelet 248, sodium 143, potassium 3.9, BUN 11, creatinine 0.14, glucose 137. Patient seen today on 07/04/2024 in room 260. She remains sedated on mechanical ventilator. She is on volume assist-control, rate 16, tidal volume 500, FiO2 60%, PEEP of 12. Blood gases show pO2 of 73, pCO2 of 41, pH is 7.43. The patient is getting D5.9 at 50 cc an hour, fentanyl drip at 0.5 mcg/kg/h, Versed at 11 mg an hour, propofol at 50 mcg/kg/min, Nimbex at 2.0 mcg/kg/min (which we will discontinue today), and vital HP at 20 cc an hour which is goal. Remains on Unasyn due to MSSA found in sputum culture. Blood cultures showing no growth after 5 days. There are no plans of weaning of mechanical ventilation. She has been on the ventilator since June 26. Spoke with mother regarding tracheostomy and PEG tube placement. Mother is agreeable with continued life support. Surgery has been consulted for tracheostomy and PEG tube placement with plans on have tracheostomy and PEG tube placement on with Dr. Quinteros. CXR showing bibisilar opacities. White count is 7.3, hemoglobin 9.5, hematocrit 31.5, platelet count 266,000. Sodium 140, potassium 4.1, chlorides 109, CO2 26, BUN 14, creatinine 0.42. Glucose is 104. Calcium is 7.8. Labs, x-rays, and all medications are reviewed. Prognosis is guarded. Patient seen today on 07/05/2024 in room 260. She remains on mechanical ventilator. She is on volume assist-control, rate 16, tidal volume 500, FiO2 60%, PEEP of 12. Blood gases show pO2 of 69, pCO2 of 37, pH is 7.47. The patient is getting D5.9 at 50 cc an hour, fentanyl drip discontinued around 4:00am, Versed at 15 mg an hour, propofol at 75 mcg/kg/min, Nimbex removed at 2:30p yesterday, and tube feeds have been on hold since midnight. Remains on Unasyn due to MSSA found in sputum culture. She has also been placed on Eraxis by ID due to vaginal candidiasis. She has been on the ventilator since June 26. Surgery has been consulted and tracheostomy is scheduled for today with Dr Pruett at 11am. CXR showing bibisilar opacities, similar to prior. White count is 7.9, hemoglobin 9.8, hematocrit 30.8, platelet count 286,000. Sodium 140, potassium 4.1, chlorides 109, CO2 24, BUN 11, creatinine 0.37. Glucose is 97. Calcium is 8.0. Labs, x-rays, and all medications are reviewed. Plan is for tracheostomy and PEG tube placement today. Prognosis is guarded. Patient seen today on 07/06/2024 in room 260. She remains on mechanical v entilator. She is on volume assist-control, rate 16, tidal volume 500, FiO2 60%, PEEP of 12. Blood gases show pO2 of 62, pCO2 of 32, pH is 7.51. The patient is getting D5.9 at 50 cc an hour, Versed at 10 mg an hour, propofol at 50 mcg/kg/min, and tube feeds currently on hold, will resume later today. Remains on Unasyn and Eraxis. Will contact ID regarding duration of antibiotic course. She is day one since being placed on trach and PEG tube. ART line was lost yesterday. CXR showing bibisilar opacities, tracheostmy cannula tip projecting over trachea. White count is 7.9, hemoglobin 9.8, hematocrit 30.8, platelet count 286,000. Sodium 140, potassium 3.8, chlorides 110, CO2 23, BUN 12, creatinine 0.48. Glucose is 83. Calcium is 8.2. Labs, x-rays, and all medic ations are reviewed. Plan is to wean off Versed and propofol. Will order Ativan 1mg q6hr prn and 0.5 mg Dilaudid q4hr prn. Prognosis is guarded. Patient seen today on 07/07/2024 in room 260. She remains on mechanical ventilator. She is on volume assist-control, rate 15, tidal volume 500, FiO2 60%, PEEP of 12. Blood gases show pO2 of 70, pCO2 of 31, pH is 7.50. She is awake and was crying, but she is not following any commands. The patient is getting D5.9 at 50 cc an hour, Versed off since 0 last night, propofol at 10 mcg/kg/min, and tube feeds resumed, vital HP at 20 cc/hr with a goal of 45. Remains on day 9 of 10 with Unasyn and day 3 of with Eraxis. She is day two since being placed on trach and PEG tube. CXR showing bibisilar opacities, tracheostmy cannula tip projecting over trachea. Patient had EEG done today, reading is pending. White count is 10.1, hemoglobin 11.5, hematocrit 37.0, platelet count 314,000. Sodium 143, potassium 4.1, chlorides 111, CO2 22, BUN 14, creatinine 0.50. Glucose is 81. Calcium is 8.0. Labs, x-rays, and all medications are reviewed. Will resume Fluoxetine. She is pending placement, she currently does not have any insurance. Prognosis is guarded. Patient seen today on 07/08/2024 in room 260. She remains on mechanical ventilator. She is on volume assist-control, rate 16, tidal volume 500, FiO2 60%, PEEP of 12. Blood gases show pO2 of 111, pCO2 of 33, pH is 7.50. The patient is getting D5.9 at 50 cc an hour, propofol at 20 mcg/kg/min, and tube feeds resumed, vital HP at 40 cc/hr with a goal of 45. Unasyn can be discontinued after today since she is on her 10th day on it. She is on day 4 of 5 with Eraxis. She is day 3 since being placed on trach and PEG tube. CXR showing bibisilar opacities, tracheostmy cannula tip projecting over trachea. EEG Is abnormal. The background slowing is suggestive of severe encephalopathy. Severe encephalopathy is likely due to toxic metabolic derangement as well as medication induced. White count is 14.9, hemoglobin 12.9, hematocrit 40.6, platelet count 273,000. Sodium 142, potassium 3.5, chlorides 110, CO2 22, BUN 12, creatinine 0.43. Glucose is 117. Mg 1.9. Labs, x-rays, and all m edications are reviewed. She is pending placement, she currently does not have any insurance. Prognosis is guarded. Objective - Vital Signs Vital signs: Vital Signs Temp 99 F 07/08/24 04:00 Pulse 80 07/08/24 07:00 Resp 16 07/08/24 07:00 BP 153/108 07/08/24 07:00 Pulse Ox 96 07/08/24 07:00 FiO2 60 07/08/24 04:00 Intake & Output 07/07/24 07/08/24 07/08/24 18:59 06:59 18:59 Intake Total 6199.226 1229.152 123.466 Output Total 2575 3700 350 Balance -1129.559 -2196.848 -226.534 Weight 138.7 kg 137.4 kg Intake: IV 920 820 60 0.9 @ KVO 120 120 10 Ampicillin-Sulbactam 3 gm 100 In Sodium Chloride 0.9% 100 ml @ 200 mls/hr IVPB Q6HR [facility] Rx#:[id number] Anidulafungin 100 mg In 100 Sodium Chloride 0.9% 100 ml @ 84 mls/hr IVPB DAILY @1200 [facility] Rx#:[id number] Dextrose 5%-0.9% NaCl 1, 600 600 50 000 ml @ 50 mls/hr IV . Q20H [facility] Rx#:[id number] Valproate Sodium 250 mg 100 In Sodium Chloride 0.9% 100 ml @ 100 mls/hr IVPB Q6HR [facility] Rx#:[id number] Intake, IV Titration 85.441 118.152 23.466 Amount propofoL 1,000 mg In 85.441 118.152 23.466 Empty Bag 1 bag @ 15 MCG/ KG/MIN 9.846 mls/hr IV . [id number] [facility] Rx#:[id number] Tube Feeding 350 475 40 Other 90 90 Output: Urine 2575 3700 350 Other: Voiding Method Indwelling Catheter Indwelling Catheter ABP, PAP, CO, CI - Last Documented Arterial Blood Pressure 112/61 - Labs CBC & Chem 7: 07/08/24 09:24 07/08/24 09:24 Labs: Abnormal Lab Results - Last 24 Hours (Table) 07/08/24 Range/Units 05:38 ABG pH 7.50 H (7.35-7.45) ABG pCO2 33 L (35-45) mmHg ABG pO2 111 H (83-108) mmHg ABG Total CO2 26 H (19-24) mmol/L ABG O2 Saturation 98.7 H (94-97) % Assessment and Plan Assessment: Acute respiratory failure, secondary to Wellbutrin overdose which required significant amount of sedation and patient developed respiratory failure requiring intubation and mechanical ventilation and needed to be intubated for protection of her airways as the patient received significant amount of sedation to control her agitation from Wellbutrin overdose. Again patient was intubated to protect her airways. Acute hypoxic respiratory failure secondary to pneumonia which has developed post intubation, on Unasyn Wellbutrin overdose Borderline personality disorder Suicidal attempt Aspiration pneumonia Sepsis secondary to aspiration pneumonia Electrolytes imbalance History of generalized anxiety disorder MSSA pneumonia Plan: Continue ventilatory support, not ready for weaning, patient is still requiring significant amount of sedation and paralysis to adequately ventilate maintain adequate O2 saturation Unasyn day , discontinue after today Eraxis day Continue Depakote Continue GI and DVT prophylaxis Continue seizure precautions, and continue seizure meds as per neurology on the case Continue Fluoxetine 40 mg PO daily Patient does not qualify for any weaning trials today. I spoke to patient's mother regarding tracheostomy and PEG tube placement. Patient mother understands and is agreeable, consent forms signed. Nimbex, Versed, and fentanyl have been discontinued Status post tracheostomy and PEG tube placement will continue to try to wean down propofol IV Ativan q6hr prn and IV Dilaudid 0.5 mg q4hr prn Continue Vital HP tube feeding Discontinue D5.9 due to high urine output, continue to monitor urine output Patient remains critically ill. Prognosis is guarded.
[2024-07-08 11:31] LABS: Appearance,Urine Clear (Clear); Bilirubin,Urine Negative (Negative); Blood,Urine Negative (Negative); Color,Urine Colorless; Glucose,Urine (UA) Negative (Negative); Ketones,Urine Negative (Negative); Leukocyte Esterase,Urine Small (Negative); Mucus,Urine Rare /hpf; Nitrite,Urine Negative (Negative); PH, Urine 7.5 (5.0-8.0); Protein,Urine Negative (Negative); RBC,Urine 2 /hpf (0-5); Specific Gravity,Urine 1.005 (1.001-1.035); Urobilinogen,Urine <2.0 mg/dL (<2.0); WBC,Urine 10 /hpf (0-5)
[2024-07-08 11:46] LABS: Glucose,Whole Blood 99 mg/dL (70-110)
--- NOTE | 2024-07-08 14:41 | P.PN ---
Subjective Progress Note Date: 07/08/24 Principal diagnosis: Reason for follow-up is MSSA/aspiration pneumonia Patient is a 28-year-old female with a past medical history of dependent for reflux, anxiety and depression presenting to the hospital after the patient overdosed on 50-90 Wellbutrin tablets subsequent did have a agitation respiratory distress requiring revision admission to the ICU ID consulted because of concern for aspiration pneumonia.The patient is status post tracheostomy and PEG tube placement on 07/05/2024. On today's visit there is 07/08/2024, patient has been afebrile patient remains to be debated through the trach FiO2 is currently stable at 50% no significant purulent secretion through the ET she did have some diarrhea with the fecal management system and but no worsening output. Patient white count slightly up to 14.9 today creatinine 0.43 Objective - Vital Signs Vital signs: Vital Signs Temp 98.4 F 07/08/24 12:00 Pulse 72 07/08/24 14:00 Resp 16 07/08/24 14:00 BP 143/94 07/08/24 14:00 Pulse Ox 96 07/08/24 14:00 FiO2 50 07/08/24 12:05 Intake & Output 07/07/24 07/08/24 07/08/24 18:59 06:59 18:59 Intake Total 5429.689 1018.152 678.628 Output Total 2575 3700 3025 Balance -1129.559 -2196.848 -2346.372 Weight 138.7 kg 137.4 kg Intake: IV 920 820 230 0.9 @ KVO 120 120 80 Ampicillin-Sulbactam 3 gm 100 In Sodium Chloride 0.9% 100 ml @ 200 mls/hr IVPB Q6HR [facility] Rx#:[id number] Anidulafungin 100 mg In 100 Sodium Chloride 0.9% 100 ml @ 84 mls/hr IVPB DAILY @1200 [facility] Rx#:[id number] Dextrose 5%-0.9% NaCl 1, 600 600 150 000 ml @ 50 mls/hr IV . Q20H [facility] Rx#:[id number] Valproate Sodium 250 mg 100 In Sodium Chloride 0.9% 100 ml @ 100 mls/hr IVPB Q6HR [facility] Rx#:[id number] Intake, IV Titration 85.441 118.152 48.628 Amount propofoL 1,000 mg In 85.441 118.152 48.628 Empty Bag 1 bag @ 15 MCG/ KG/MIN 9.846 mls/hr IV . [id number] [facility] Rx#:[id number] Oral 60 Tube Feeding 350 475 280 Other 90 90 60 Output: Urine 2575 3700 3025 Other: Voiding Method Indwelling Catheter Indwelling Catheter Indwelling Catheter ABP, PAP, CO, CI - Last Documented Arterial Blood Pressure 112/61 - Exam GENERAL DESCRIPTION: Middle-age female intubated through the trach RESPIRATORY SYSTEM: Unlabored breathing , decreased breath sounds at bases HEART: S1 S2 regular rate and rhythm , ABDOMEN: Soft , no tenderness EXTREMITIES: No edema feet - Labs CBC & Chem 7: 07/08/24 09:24 07/08/24 09:24 Labs: Abnormal Lab Results - Last 24 Hours (Table) 07/08/24 07/08/24 07/08/24 Range/Units 05:38 09:24 09:24 WBC 14.9 H (3.8-10.6) k/uL Neutrophils # 12.5 H (1.3-7.7) k/uL ABG pH 7.50 H (7.35-7.45) ABG pCO2 33 L (35-45) mmHg ABG pO2 111 H (83-108) mmHg ABG Total CO2 26 H (19-24) mmol/L ABG O2 Saturation 98.7 H (94-97) % Chloride 110 H (98-107) mmol/L Creatinine 0.43 L (0.52-1.04) mg/dL Glucose 117 H (74-99) mg/dL AST 69 H (14-36) U/L ALT 96 H (4-34) U/L Ur Leukocyte Esterase (Negative) Urine WBC (0-5) /hpf Urine Mucus (None) /hpf 07/08/24 Range/Units 10:57 WBC (3.8-10.6) k/uL Neutrophils # (1.3-7.7) k/uL ABG pH (7.35-7.45) ABG pCO2 (35-45) mmHg ABG pO2 (83-108) mmHg ABG Total CO2 (19-24) mmol/L ABG O2 Saturation (94-97) % Chloride (98-107) mmol/L Creatinine (0.52-1.04) mg/dL Glucose (74-99) mg/dL AST (14-36) U/L ALT (4-34) U/L Ur Leukocyte Esterase Small H (Negative) Urine WBC 10 H (0-5) /hpf Urine Mucus Rare H (None) /hpf Assessment and Plan (1) Sepsis Current Visit: Yes Status: Acute Code(s): A41.9 - SEPSIS, UNSPECIFIED ORGANISM SNOMED Code(s): 57468574 (2) Pneumonia Current Visit: Yes Status: Acute Code(s): J18.9 - PNEUMONIA, UNSPECIFIED ORGANISM SNOMED Code(s): 229478681 (3) MSSA (methicillin susceptible Staphylococcus aureus) infection Current Visit: Yes Status: Acute Code(s): A49.01 - METHICILLIN SUSCEP STAPH INFECTION, UNSP SITE SNOMED Code(s): 559195757 Plan: 1patient presenting the hospital with drug overdose with subsequent agitation respiratory distress requiring intubation concerning for possible aspiration pneumonia sputum is now growing MSSA in this patient who did have features of sepsis with fever elevated white count and hypotension requiring low-dose pressor support on initial evaluation. 2-patient did have resolution of her fever the patient white count normalized blood culture have been negative so far, sputum is growing MSSA with the patient is being treated with Unasyn duration will be 10 days total 3patient has developed extensive vaginal area candidiasis unable to use Diflucan because of drug interaction currently on Eraxis, patient has completed course of Eraxis this morning has been discontinued 4groin area candidiasis treated with with nystatin powder twice a day. 5-the patient did have resolution of the fever however noticed a slight worsening of the white count will be monitored closely if any worsening of the white count or fever to reculture and consider restarting antibiotic at that point Dictation was produced using [employer] dictation software. please excuse any grammatical, word or spelling errors. Time with Patient: Less than 30
[2024-07-08 17:32] LABS: Glucose,Whole Blood 96 mg/dL (70-110)
[2024-07-08 23:15] LABS: Glucose,Whole Blood 80 mg/dL (70-110)
[2024-07-09 05:42] LABS: Glucose,Whole Blood 101 mg/dL (70-110)
[2024-07-09 05:47] LABS: ABG Base Excess 3.2 mmol/L; ABG HCO3 27 mmol/L (21-25); ABG Oxygen Saturation 98.7 % (94-97); ABG PCO2 37 mmHg (35-45); ABG PH 7.47 (7.35-7.45); ABG PO2 114 mmHg (83-108); ABG TCO2 28 mmol/L (19-24); Allen Test Performed? Yes
[2024-07-09 06:47] LABS: Basophils # (A) 0.1 k/uL (0-0.2); Basophils % (A) 0 %; Eosinophils % (A) 0 %; HCT 44.3 % (34.0-46.0); HGB 13.5 gm/dL (11.4-16.0); Hypochromasia Slight; Lymphocytes # (A) 1.6 k/uL (1.0-4.8); Lymphocytes % (A) 10 %; MCH 30.3 pg (25.0-35.0); MCHC 30.5 g/dL (31.0-37.0); MCV 99.5 fL (80.0-100.0); Macrocytosis Slight; Mean Platelet Volume 8.5; Monocytes # (A) 0.7 k/uL (0-1.0); Monocytes % (A) 4 %; Neutrophils # (A) 13.7 k/uL (1.3-7.7); Neutrophils % (A) 85 %; Platelet Count 241 k/uL (150-450); RBC 4.45 m/uL (3.80-5.40); RDW 14.6 % (11.5-15.5); WBC 16.3 k/uL (3.8-10.6)
--- NOTE | 2024-07-09 06:53 | XR ---
EXAMINATION TYPE: XR chest 1V portable DATE OF EXAM: 07/09/2024 COMPARISON: 07/08/2024 CLINICAL INDICATION: Female, 28 years old with history of follow up; patient on mechanical ventilator ; TECHNIQUE: Single frontal view of the chest is obtained. FINDINGS: There is no change in the tracheostomy tube. There is better aeration of the right lung however there are persistent partially consolidated opacit ies in both lower lobes likely indicating pneumonia. There is no large pleural effusion. There is no pneumothorax. The osseous structures are grossly intact. IMPRESSION: Small consolidative infiltrates in both lung bases most likely pneumonia. [facility], , 07/09/2024 6:51 AM
[2024-07-09] MEDS: POTASSIUM BICARBONATE/CIT AC 20 MEQ TABLET.EFF NG-TUBE SCH (08:20)
--- NOTE | 2024-07-09 09:55 | P.PN ---
Progress Note - Text Progress Note Date: 07/09/24 CHIEF COMPLAINT: Intentional overdose HISTORY OF PRESENT ILLNESS: Patient is postop day #4 status post tracheostomy and PEG tube placement. No acute events overnight. Tolerating tube feeds at goal. PHYSICAL EXAM: VITAL SIGNS: Reviewed. GENERAL: no acute distress. HEENT: Tracheostomy site with small amount of serosanguineous oozing noted ABDOMEN: Soft. Obese. PEG tube site clean dry and intact ASSESSMENT: 1. Acute respiratory failure s/p intubation to protect airway after patient received significant sedation for agitation from Wellbutrin overdose and had an aspiration pneumonia 2. Severe protein calorie malnutrition 3. Suicide attempt with Wellbutrin overdose PLAN: -Continue Tube Feeds at goal -Continue ICU management -Continue supportive care Khoa Pruett DO [facility] [phone]
--- NOTE | 2024-07-09 10:29 | P.PN ---
Subjective Progress Note Date: 07/09/24 28 year old F with PMH of anxiety and borderline personality disorder on Wellbutrin presented after intentional ingestion of Wellbutrin. Patient is psychotic at the time my evaluation does not provide reliable history. According to ER provider signout as well as chart review, patient ingested somewhere between 50-90 extended release Wellbutrin tablets and an overdose attempt. Patient is clearly agitated, tachycardic at the time my evaluation. Upon arrival patient was afebrile, 148/96, heart rate 83. Patient subsequently received activated charcoal, was started on IV fluids, and given a total of 7 mg of Ativan while on continuous telemetry, with heart rates increasing to the 130s to 140s. The ER provider did contact poison control control who recommended medical monitoring until patient is stable for transfer to the mental health unit. Review of lab work shows normal CBC, CO2 of 20, ALT of 91, negative troponin, normal lactic acid, negative salicylate level, alcohol level, Tylenol level. Initial EKG shows normal sinus rhythm with a short WA interval and right axis deviation. Patient was admitted to the cardiac selective floor with telemetry, with low threshold for ICU escalation. Received multiple doses of Ativan + Librium, remained agitated, intubated on 06/27. Concerns for aspiration on 06/28, started on Zosyn with Vancomycin added for staph sputum Cx. IV consulted, switched to Unasyn on 06/29. Eraxis started for Vaginal candidiasis. Completed 4 days of Eraxis and 10 days of Unasyn. Concerns for seizures, started on Depakote, Neurology consulted. CT head showed no acute hemorrhage, areas of low-attenuation in the bilateral cerebellar hemisphere slightly more prominent on the right, per neurology, could be artifact. EEG done in was abnormal, showed background slowing suggestive of mild encephalopathy likely due to toxic metabolic derangement as well as medication use, no epileptiform discharges, seizures. Poison control recommended phenobarbital 570 mg IV x1 on 06/29. Continued on Valproic acid 250 mg IV BID. Difficulty with extubation, CTA chest 07/02 showed no PE, multifocal PNA, cardiomegaly with small pleural effusions. Underwent successful Trach/PEG on 07/05. Difficulty with placement. Case management on board. 07/09 Patient was seen and examined. Intubated. Propofol and Midazolam has been weaned off. Vent settings include rate 16, tidal volume 500, FiO2 50% with PEEP of 10. Completed 10 days of Unasyn and 4 days of Anidulafungin. CBC significant for WBC 16.3. ABG pH 7.47, pCO2 37, pO2 114 with FiO2 50%. CXR shows improved bibasilar airspace opacities with tracheostomy. General: Intubated. Obese. Derm: warm, dry Head: atraumatic, normocephalic, symmetric, tracheostomy Eyes: no lid lag, anicteric sclera, opens eyes and tracking Mouth: no lip lesion, mucus membranes moist Cardiovascular: S1S2 reg, no murmur Lungs: Bilateral rhonchi, no rales , no accessory muscle use Ext: no gross muscle atrophy, no edema, no contractures Neuro: Unable to determine Psych: Unable to determine + PEG Based on my assessment of this patient, this patient meets a high complexity level of care. Acute respiratory failure s/p intubation for airway protection 06/27: CTA chest negative for PE but does show multifocal PNA with cardiomegaly and small pleural effusions. Status post PEG/Trach 07/05. Sputum culture growing Staph aureus: Completed 10 days of Unasyn. Sepsis likely secondary to aspiration pneumonia: Completed 10 days of Unasyn. Tylenol 650 mg PO Q6H PRN fever. Elevated HOB. Aspiration precautions. Vent management per Pulmonary. Acute metabolic encephalopathy due to below: EEG shows encephalopathy. CT head 06/29 no acute process. Continue Valproic acid 500 mg PO BID. Seizure precautions. Neurology on board. Intentional overdose with Wellbutrin Iron def anemia: Iron level of 9. Defer IV iron while treating active infection. Monitor Hg. Transfuse if Hg < 7. Constipation: Miralax 17g PO QHS. Lactulose 20g PO QD PRN. Anxiety and Borderline personality disorder: Pyschiatry on board. Resolved: Metabolic acidosis, Hypokalemia, Hypomagnesemia CODE STATUS: FULL CODE. DVT Prophylaxis: Heparin SQ GI Prophylaxis: Protonix IV Designated medical POA if patient is not able to make medical decisions for themselves: I have reviewed the following telecom sales consultant notes: Surgery, ID. I have reviewed the results of the following tests: CBC, ABG. I have ordered the following tests: I have discussed the care of this patient with the following independent wa storian: LALO. I have independently interpreted the following test below: CXR I have discussed the management of this patient with the following physician: Objective - Vital Signs Vital signs: Vital Signs Temp 98.4 F 07/09/24 08:00 Pulse 95 07/09/24 09:00 Resp 23 07/09/24 09:00 BP 144/92 07/09/24 09:00 Pulse Ox 96 07/09/24 09:00 FiO2 50 07/09/24 08:29 Intake & Output 07/08/24 07/09/24 07/09/24 17:59 06:59 18:59 Intake Total 290 Output Total 675 Balance -385 Weight Intake: IV 140 0.9 @ KVO 40 Dextrose 5%-0.9% NaCl 1, 000 ml @ 50 mls/hr IV . Q20H [facility] Rx#:[id number] Magnesium Sulfate-D5w Pmx 1 gm In Dextrose/Water 1 100ml.bag @ 100 mls/hr IVPB ONCE ONE Rx#: [id number] Potassium Chloride 20 meq In Water For Injection 1 100ml.bag @ 50 mls/hr IVPB Q2H [facility] Rx#: [id number] Valproate Sodium 250 mg 100 In Sodium Chloride 0.9% 100 ml @ 100 mls/hr IVPB Q12HR [facility] Rx#:[id number] Intake, IV Titration Amount propofoL 1,000 mg In Empty Bag 1 bag @ 15 MCG/ KG/MIN 9.846 mls/hr IV . [id number] [facility] Rx#:[id number] Oral Tube Feeding 120 Other 30 Output: Urine 675 Other: Voiding Method ABP, PAP, CO, CI - Last Documented Arterial Blood Pressure 112/61 - Labs CBC & Chem 7: 07/09/24 06:04 07/08/24 18:09 Labs: Abnormal Lab Results - Last 24 Hours (Table) 07/08/24 07/08/24 07/08/24 Range/Units 09:24 09:24 10:57 WBC 14.9 H (3.8-10.6) k/uL MCHC (31.0-37.0) g/dL Neutrophils # 12.5 H (1.3-7.7) k/uL ABG pH (7.35-7.45) ABG pO2 (83-108) mmHg ABG HCO3 (21-25) mmol/L ABG Total CO2 (19-24) mmol/L ABG O2 Saturation (94-97) % Potassium (3.5-5.1) mmol/L Chloride 110 H (98-107) mmol/L Creatinine 0.43 L (0.52-1.04) mg/dL Glucose 117 H (74-99) mg/dL AST 69 H (14-36) U/L ALT 96 H (4-34) U/L Ur Leukocyte Esterase Small H (Negative) Urine WBC 10 H (0-5) /hpf Urine Mucus Rare H (None) /hpf 07/08/24 07/09/24 07/09/24 Range/Units 18:09 05:45 06:04 WBC 16.3 H (3.8-10.6) k/uL MCHC 30.5 L (31.0-37.0) g/dL Neutrophils # 13.7 H (1.3-7.7) k/uL ABG pH 7.47 H (7.35-7.45) ABG pO2 114 H (83-108) mmHg ABG HCO3 27 H (21-25) mmol/L ABG Total CO2 28 H (19-24) mmol/L ABG O2 Saturation 98.7 H (94-97) % Potassium 3.4 L (3.5-5.1) mmol/L Chloride (98-107) mmol/L Creatinine (0.52-1.04) mg/dL Glucose (74-99) mg/dL AST (14-36) U/L ALT (4-34) U/L Ur Leukocyte Esterase (Negative) Urine WBC (0-5) /hpf Urine Mucus (None) /hpf
[2024-07-09 11:37] LABS: Glucose,Whole Blood 104 mg/dL (70-110)
--- NOTE | 2024-07-09 12:28 | P.PN ---
Subjective Progress Note Date: 07/09/24 07/03/2024: This is a 28-year-old female with history of borderline personality disorder admitted to ICU on 06/26 and was subsequently intubated due to acute respiratory failure secondary to Wellbutrin overdose. According to the chart patient may have taken about 30-90 tablets. Patiente was intubtated on 06/26 due to extreme agitation and restlessness. Patient was seen today on 07/02/2024, she remains in ICU mechanically ventilated, sedated, and paralyzed. She is on assist-control at a rate of 16, tidal volume of 500, FiO2 at 70%, PEEP of 12. ABG this morning showing pH of 7.4, pCO2 44, pO2 69. Currently on Nimbex 1.5 mcg/mg/min, propofol 50 mcg/kg/min, fentanyl 0.5mcg/kg/hr, Versed 11 mg/hr, and propofol 50 mcg/kg/min. Intermittently has been on norepinephrine, but is currently not requiring it at this moment. Last weaning trial was on 06/29. Tube nutritional support/enteral feeding vital HP at goal. No overnight events. Chest x-ray showing patchy basilar infiltrates, no change from prior. Remains on Unasyn at 200 MLS/HR IVPB every 6 hours due to aspiration pneumonia. Remains on Decadron 6 mg IVP every 6 hours. Labs: WBC 8.5, Hgb 9.9 1, HCT 33.2, platelet 248, sodium 143, potassium 3.9, BUN 11, creatinine 0.14, glucose 137. Patient seen today on 07/04/2024 in room 260. She remains sedated on mechanical ventilator. She is on volume assist-control, rate 16, tidal volume 500, FiO2 6 0%, PEEP of 12. Blood gases show pO2 of 73, pCO2 of 41, pH is 7.43. The patient is getting D5.9 at 50 cc an hour, fentanyl drip at 0.5 mcg/kg/h, Versed at 11 mg an hour, propofol at 50 mcg/kg/min, Nimbex at 2.0 mcg/kg/min (which we will discontinue today), and vital HP at 20 cc an hour which is goal. Remains on Unasyn due to MSSA found in sputum culture. Blood cultures showing no growth after 5 days. There are no plans of weaning of mechanical ventilation. She has been on the ventilator since June 26. Spoke with mother regarding tracheostomy and PEG tube placement. Mother is agreeable with continued life support. Surgery has been consulted for tracheostomy and PEG tube placement with plans on have tracheostomy and PEG tube placement on with Dr. Quinteros. CXR showing bibisilar opacities. White count is 7.3, hemoglobin 9.5, hematocrit 31.5, platelet count 266,000. Sodium 140, potassium 4.1, chlorides 109, CO2 26, BUN 14, creatinine 0.42. Glucose is 104. Calcium is 7.8. Labs, x-rays, and all medications are reviewed. Prognosis is guarded. Patient seen today on 07/05/2024 in room 260. She remains on mechanical ventilator. She is on volume assist-control, rate 16, tidal volume 500, FiO2 60%, PEEP of 12. Blood gases show pO2 of 69, pCO2 of 37, pH is 7.47. The patient is getting D5.9 at 50 cc an hour, fentanyl drip discontinued around 4:00am, Versed at 15 mg an hour, propofol at 75 mcg/kg/min, Nimbex removed at 2:30p yesterday, and tube feeds have been on hold since midnight. Remains on Unasyn due to MSSA found in sputum culture. She has also been placed on Eraxis by ID due to vaginal candidiasis. She has been on the ventilator since June 26. Surgery has been consulted and tracheostomy is scheduled for today with Dr Pruett at 11am. CXR showing bibisilar opacities, similar to prior. White count is 7.9, hemoglobin 9.8, hematocrit 30.8, platelet count 286,000. Sodium 140, potassium 4.1, chlorides 109, CO2 24, BUN 11, creatinine 0.37. Glucose is 97. Calcium is 8.0. Labs, x-rays, and all medications are reviewed. Plan is for tracheostomy and PEG tube placement today. Prognosis is guarded. Patient seen today on 07/06/2024 in room 260. She remains on mechanical venti lator. She is on volume assist-control, rate 16, tidal volume 500, FiO2 60%, PEEP of 12. Blood gases show pO2 of 62, pCO2 of 32, pH is 7.51. The patient is getting D5.9 at 50 cc an hour, Versed at 10 mg an hour, propofol at 50 mcg/kg/min, and tube feeds currently on hold, will resume later today. Remains on Unasyn and Eraxis. Will contact ID regarding duration of antibiotic course. She is day one since being placed on trach and PEG tube. ART line was lost yesterday. CXR showing bibisilar opacities, tracheostmy cannula tip projecting over trachea. White count is 7.9, hemoglobin 9.8, hematocrit 30.8, platelet count 286,000. Sodium 140, potassium 3.8, chlorides 110, CO2 23, BUN 12, creatinine 0.48. Glucose is 83. Calcium is 8.2. Labs, x-rays, and all medications are reviewed. Plan is to wean off Versed and propofol. Will order Ativan 1mg q6hr prn and 0.5 mg Dilaudid q4hr prn. Prognosis is guarded. Patient seen today on 07/07/2024 in room 260. She remains on mechanical ventilator. She is on volume assist-control, rate 15, tidal volume 500, FiO2 60%, PEEP of 12. Blood gases show pO2 of 70, pCO2 of 31, pH is 7.50. She is awake and was crying, but she is not following any commands. The patient is getting D5.9 at 50 cc an hour, Versed off since 0 last night, propofol at 10 mcg/kg/min, and tube feeds resumed, vital HP at 20 cc/hr with a goal of 45. Remains on day 9 of 10 with Unasyn and day 3 of 5 with Eraxis. She is day two since being placed on trach and PEG tube. CXR showing bibisilar opacities, tracheostmy cannula tip projecting over trachea. Patient had EEG done today, reading is pending. White count is 10.1, hemoglobin 11.5, hematocrit 37.0, platelet count 314,000. Sodium 143, potassium 4.1, chlorides 111, CO2 22, BUN 14, creatinine 0.50. Glucose is 81. Calcium is 8.0. Labs, x-rays, and all medications are reviewed. Will resume Fluoxetine. She is pending placement, she currently does not have any insurance. Prognosis is guarded. Patient seen today on 07/08/2024 in room 260. She remains on mechanical ventilator. She is on volume assist-control, rate 16, tidal volume 500, FiO2 60%, PEEP of 12. Blood gases show pO2 of 111, pCO2 of 33, pH is 7.50. The patient is getting D5.9 at 50 cc an hour, propofol at 20 mcg/kg/min, and tube feeds resumed, vital HP at 40 cc/hr with a goal of 45. Unasyn can be discontinued after today since she is on her 10th day on it. She is on day 4 of 5 with Eraxis. She is day 3 since being placed on trach and PEG tube. CXR showing bibisilar opacities, tracheostmy cannula tip projecting over trachea. EEG Is abnormal. The background slowing is suggestive of severe encephalopathy. Severe encephalopathy is likely due to toxic metabolic derangement as well as medication induced. White count is 14.9, hemoglobin 12.9, hematocrit 40.6, platelet count 273,000. Sodium 142, potassium 3.5, chlorides 110, CO2 22, BUN 12, creatinine 0.43. Glucose is 117. Mg 1.9. Labs, x-rays, and all medic ations are reviewed. She is pending placement, she currently does not have any insurance. Prognosis is guarded. The patient is seen today July 09, 2024 in follow-up in the intensive care unit. She remains on the mechanical ventilator currently on assist-control mode at a rate of 16, tidal volume 500, FiO2 50% and a PEEP of 10. Morning blood gases revealed a PaO2 of 114, pCO2 37 and a pH of 7.47. Her propofol is currently paused since 5 AM. The patient is following commands. She is attempting to mouth words. Tracheostomy and PEG tube have been placed. She remains on vital HP at 40 mL/h which is goal. Chest x-ray continues to show small consolidative infiltrates of the lung bases. White count 16.3. Hemoglobin 13.5. Platelets 241. Decadron 6 mg IVP every 6 hours. Remains on heparin for DVT prophylaxis. Dilaudid for pain control. Perlick acid. No seizure activity. Objective - Vital Signs Vital signs: Vital Signs Temp 98.4 F 07/09/24 08:00 Pulse 75 07/09/24 11:00 Resp 30 H 07/09/24 11:00 BP 150/99 07/09/24 11:00 Pulse Ox 96 07/09/24 11:00 FiO2 50 07/09/24 11:44 Intake & Output 07/08/24 07/09/24 07/09/24 17:59 06:59 18:59 Intake Total 410 Output Total 1650 Balance -1240 Weight Intake: IV 180 0.9 @ KVO 80 Dextrose 5%-0.9% NaCl 1, 000 ml @ 50 mls/hr IV . Q20H [facility] Rx#:[id number] Magnesium Sulfate-D5w Pmx 1 gm In Dextrose/Water 1 100ml.bag @ 100 mls/hr IVPB ONCE ONE Rx#: [id number] Potassium Chloride 20 meq In Water For Injection 1 100ml.bag @ 50 mls/hr IVPB Q2H [facility] Rx#: [id number] Valproate Sodium 250 mg 100 In Sodium Chloride 0.9% 100 ml @ 100 mls/hr IVPB Q12HR [facility] Rx#:[id number] Intake, IV Titration Amount propofoL 1,000 mg In Empty Bag 1 bag @ 15 MCG/ KG/MIN 9.846 mls/hr IV . [id number] [facility] Rx#:[id number] Oral Tube Feeding 200 Other 30 Output: Urine 1650 Other: Voiding Method Indwelling Catheter ABP, PAP, CO, CI - Last Documented Arterial Blood Pressure 112/61 - Exam GENERAL EXAM: Alert, 28-year-old female, on the mechanical ventilator, following some simple commands, in no apparent distress. HEAD: Normocephalic. EYES: Normal reaction of pupils, equal size. NOSE: Clear with pink turbinates. THROAT: No erythema or exudates. NECK: Tracheostomy tube secured in place. No masses, no JVD. CHEST: No chest wall deformity. LUNGS: Equal air entry with few scattered rhonchi. CVS: S1 and S2 normal with no audible murmur, regular rhythm. ABDOMEN: PEG tube secured in place. No hepatosplenomegaly, normal bowel sounds, no guarding or rigidity. SPINE: No scoliosis or deformity SKIN: No rashes CENTRAL NERVOUS SYSTEM: No focal deficits, tone is normal in all 4 extremities. EXTREMITIES: There is no peripheral edema. No clubbing, no cyanosis. Peripheral pulses are intact. - Labs CBC & Chem 7: 07/09/24 06:04 07/08/24 18:09 Labs: Abnormal Lab Results - Last 24 Hours (Table) 07/08/24 07/08/24 07/09/24 Range/Units 10:57 18:09 05:45 WBC (3.8-10.6) k/uL MCHC (31.0-37.0) g/dL Neutrophils # (1.3-7.7) k/uL ABG pH 7.47 H (7.35-7.45) ABG pO2 114 H (83-108) mmHg ABG HCO3 27 H (21-25) mmol/L ABG Total CO2 28 H (19-24) mmol/L ABG O2 Saturation 98.7 H (94-97) % Potassium 3.4 L (3.5-5.1) mmol/L Ur Leukocyte Esterase Small H (Negative) Urine WBC 10 H (0-5) /hpf Urine Mucus Rare H (None) /hpf 07/09/24 Range/Units 06:04 WBC 16.3 H (3.8-10.6) k/uL MCHC 30.5 L (31.0-37.0) g/dL Neutrophils # 13.7 H (1.3-7.7) k/uL ABG pH (7.35-7.45) ABG pO2 (83-108) mmHg ABG HCO3 (21-25) mmol/L ABG Total CO2 (19-24) mmol/L ABG O2 Saturation (94-97) % Potassium (3.5-5.1) mmol/L Ur Leukocyte Esterase (Negative) Urine WBC (0-5) /hpf Urine Mucus (None) /hpf Assessment and Plan Assessment: Acute respiratory failure, secondary to Wellbutrin overdose which required significant amount of sedation and patient developed respiratory failure requiring intubation and mechanical ventilation and needed to be intubated for protection of her airways as the patient received significant amount of sedation to control her agitation from Wellbutrin overdose. Again patient was intubated to protect her airways. Acute hypoxic respiratory failure secondary to pneumonia which has developed post intubation, completed antibiotics Wellbutrin overdose Borderline personality disorder Suicidal attempt Aspiration pneumonia Sepsis secondary to aspiration pneumonia Electrolytes imbalance History of generalized anxiety disorder MSSA pneumonia Plan: The patient was seen and evaluated Imaging, labs, ABGs and medications reviewed Decrease her PEEP to 10 today Receiving a sedation holiday Completed antibiotics Continue Depakote Continue GI and DVT prophylaxis Continue seizure precautions Nimbex, Versed, and fentanyl have been discontinued Status post tracheostomy and PEG tube placement Will continue with daily interruption of sedation and weaning trials as tolerated Continue Vital HP tube feeding for nutritional support Case management working on obtaining insurance and eventual rehabilitation fac [facility] We will continue to follow and make further recommendations based on her clinical status I have personally seen and examined the patient, performed the documentation and the assessment and plan as written. Number of minutes spent on the visit: 15 Dictation was produced using [employer] dictation software. Please excuse any grammatical, word or spelling errors.
--- NOTE | 2024-07-09 13:31 | P.PN ---
Subjective Progress Note Date: 07/09/24 The patient was under the care of by Dr. Alfonso this past week. Please refer to his note for further details. It seems that the patient had the EEG and was negative for any of the form discharges on the EEG. As a result of Depakote was read. Patient has a trach. Objective - Vital Signs Vital signs: Vital Signs Temp 98.4 F 07/09/24 08:00 Pulse 81 07/09/24 12:00 Resp 28 H 07/09/24 12:00 BP 129/82 07/09/24 12:00 Pulse Ox 98 07/09/24 12:00 FiO2 50 07/09/24 12:00 Intake & Output 07/08/24 07/09/24 07/09/24 17:59 06:59 18:59 Intake Total 500 Output Total 1925 Balance -1425 Weight Intake: IV 200 0.9 @ KVO 100 Dextrose 5%-0.9% NaCl 1, 000 ml @ 50 mls/hr IV . Q20H [facility] Rx#:[id number] Magnesium Sulfate-D5w Pmx 1 gm In Dextrose/Water 1 100ml.bag @ 100 mls/hr IVPB ONCE ONE Rx#: [id number] Potassium Chloride 20 meq In Water For Injection 1 100ml.bag @ 50 mls/hr IVPB Q2H [facility] Rx#: [id number] Valproate Sodium 250 mg 100 In Sodium Chloride 0.9% 100 ml @ 100 mls/hr IVPB Q12HR [facility] Rx#:[id number] Intake, IV Titration Amount propofoL 1,000 mg In Empty Bag 1 bag @ 15 MCG/ KG/MIN 9.846 mls/hr IV . [id number] [facility] Rx#:[id number] Oral Tube Feeding 240 Other 60 Output: Urine 1925 Other: Voiding Method Indwelling Catheter ABP, PAP, CO, CI - Last Documented Arterial Blood Pressure 112/61 - Exam General: Lying in bed and is not in acute distress. Lung: Trach Neuro: Is awake alert. She is following simple commands such as showing thumbs up, wiggling her toes. She is not verbalizing because of her recent trach No facial weakness. She is able to lift up bilateral lower extremity above gravity. Able to make fist on bilateral hands. - Labs CBC & Chem 7: 07/09/24 06:04 07/08/24 18:09 Labs: Abnormal Lab Results - Last 24 Hours (Table) 07/08/24 07/09/24 07/09/24 Range/Units 18:09 05:45 06:04 WBC 16.3 H (3.8-10.6) k/uL MCHC 30.5 L (31.0-37.0) g/dL Neutrophils # 13.7 H (1.3-7.7) k/uL ABG pH 7.47 H (7.35-7.45) ABG pO2 114 H (83-108) mmHg ABG HCO3 27 H (21-25) mmol/L ABG Total CO2 28 H (19-24) mmol/L ABG O2 Saturation 98.7 H (94-97) % Potassium 3.4 L (3.5-5.1) mmol/L Assessment and Plan Assessment: This is a 28-year-old woman with a history of borderline personality disorder who presented emergency department because of a suicidal attempt by taking multiple Wellbutrin tablets. Questionable few episode of seizure-like activity: Unsure if patient is having withdrawing symptoms. If she did have a seizure its likely provoked due to her metabolic derangement and perhaps due to lowering seizure threshold from Wellbutrin. She had 4 EEGs performed so far and negative for seizure or discharges. Metabolic encephalopathy, severe degree Status post tracheostomy and PEG tube placement 07/05/2024 Suicidal attempt Hypoglycemia Hypomagnesium History of borderline personality disorder Plan: * EEG was performed today, and it was abnormal due to presence of sporadic intermittent frontal rhythmic delta activity. This may suggest underlying encephalopathy. Otherwise the background appears to be normal. When compared to the EEG from 07/04/2024, the background has remarkably improved. No epileptiform activity was seen. * Patient never had any epileptiform activity seen on the EEG. Initially started on Depakote during this hospital admission for questionable seizure but then was tapered by Dr. Alfonso because no seizure was noted. Therefore I stopped the Depakote since all the EEGs were negative for any seizure. * Repeat CT head performed on 06/29/2024, which revealed no acute intracranial process. * EEG 07/04/2024 was abnormal due to background slowing of moderate to severe degree. This is suggestive of generalized cerebral dysfunction as can be seen with toxic metabolic encephalopathy or related to diffuse structural brain abnormality. Clinical correlation is recommended. No obvious epileptiform activity was seen. When compared to the EEG from 06/29/2024, the intermittent background suppression seen in the previous study has resolved, but now has replaced with diffuse high amplitude theta and delta slowing as mentioned above. Follow-up EEG recommended, if clinically indicated. * Seizure precaution and pads * Psychiatry is consulted * Please avoid any further hypoglycemia and will defer correction of the electrolyte imbalance to primary and ICU team. * Will defer the rest of the medical management to primary other specialist Time with Patient: Less than 30
[2024-07-09 15:40] LABS: African American GFR (CKD) >90 (>60 ml/min/1.73 sqM); Anion Gap 10 mmol/L; Blood Urea Nitrogen 15 mg/dL (7-17); Calcium 9.2 mg/dL (8.4-10.2); Carbon Dioxide 22 mmol/L (22-30); Chloride 108 mmol/L (98-107); Glucose 109 mg/dL (74-99); Non-African American GFR(CKD) >90 (>60 ml/min/1.73 sqM); Sodium 140 mmol/L (137-145)
--- NOTE | 2024-07-09 15:55 | P.PN ---
Subjective Progress Note Date: 07/09/24 Principal diagnosis: Reason for follow-up is MSSA/aspiration pneumonia Patient is a 28-year-old female with a past medical history of dependent for reflux, anxiety and depression presenting to the hospital after the patient overdosed on 50-90 Wellbutrin tablets subsequent did have a agitation respiratory distress requiring revision admission to the ICU ID consulted because of concern for aspiration pneumonia.The patient is status post tracheostomy and PEG tube placement on 07/05/2024. On today's visit there is 07/09/2024, Patient did have a solution of fever and i s afebrile this morning patient remains to be intubated on the vent FiO2 currently 50% patient is awake but not following any purposeful command no other changes reported by the nursing staff. Patient did have a white count of 16.3, creatinine is 0.43 chest x-ray still showing evidence of consolidation or effusion at the lung bases likely pneumonia Objective - Vital Signs Vital signs: Vital Signs Temp 98.4 F 07/09/24 08:00 Pulse 85 07/09/24 14:00 Resp 17 07/09/24 14:00 BP 137/95 07/09/24 14:00 Pulse Ox 96 07/09/24 14:00 FiO2 50 07/09/24 15:22 Intake & Output 07/08/24 07/09/24 07/09/24 17:59 06:59 18:59 Intake Total 620 Output Total 2325 Balance -1705 Weight Intake: IV 240 0.9 @ KVO 140 Dextrose 5%-0.9% NaCl 1, 000 ml @ 50 mls/hr IV . Q20H [facility] Rx#:[id number] Magnesium Sulfate-D5w Pmx 1 gm In Dextrose/Water 1 100ml.bag @ 100 mls/hr IVPB ONCE ONE Rx#: [id number] Potassium Chloride 20 meq In Water For Injection 1 100ml.bag @ 50 mls/hr IVPB Q2H [facility] Rx#: [id number] Valproate Sodium 250 mg 100 In Sodium Chloride 0.9% 100 ml @ 100 mls/hr IVPB Q12HR [facility] Rx#:[id number] Intake, IV Titration Amount propofoL 1,000 mg In Empty Bag 1 bag @ 15 MCG/ KG/MIN 9.846 mls/hr IV . [id number] [facility] Rx#:[id number] Oral Tube Feeding 320 Other 60 Output: Urine 2325 Other: Voiding Method Indwelling Catheter ABP, PAP, CO, CI - Last Documented Arterial Blood Pressure 112/61 - Exam GENERAL DESCRIPTION: Middle-age female intubated through the trach RESPIRATORY SYSTEM: Unlabored breathing , decreased breath sounds at bases HEART: S1 S2 regular rate and rhythm , ABDOMEN: Soft , no tenderness EXTREMITIES: No edema feet - Labs CBC & Chem 7: 07/09/24 06:04 07/08/24 18:09 Labs: Abnormal Lab Results - Last 24 Hours (Table) 07/08/24 07/09/24 07/09/24 Range/Units 18:09 05:45 06:04 WBC 16.3 H (3.8-10.6) k/uL MCHC 30.5 L (31.0-37.0) g/dL Neutrophils # 13.7 H (1.3-7.7) k/uL ABG pH 7.47 H (7.35-7.45) ABG pO2 114 H (83-108) mmHg ABG HCO3 27 H (21-25) mmol/L ABG Total CO2 28 H (19-24) mmol/L ABG O2 Saturation 98.7 H (94-97) % Potassium 3.4 L (3.5-5.1) mmol/L Assessment and Plan (1) Sepsis Current Visit: Yes Status: Acute Code(s): A41.9 - SEPSIS, UNSPECIFIED ORGANISM SNOMED Code(s): 01005839 (2) Pneumonia Current Visit: Yes Status: Acute Code(s): J18.9 - PNEUMONIA, UNSPECIFIED ORGANISM SNOMED Code(s): 922039618 (3) MSSA (methicillin susceptible Staphylococcus aureus) infection Current Visit: Yes Status: Acute Code(s): A49.01 - METHICILLIN SUSCEP STAPH INFECTION, UNSP SITE SNOMED Code(s): 480745349 Plan: 1patient presenting the hospital with drug overdose with subsequent agitation respiratory distress requiring intubation concerning for possible aspiration pneumonia sputum is now growing MSSA in this patient who did have features of sepsis with fever elevated white count and hypotension requiring low-dose pressor support on initial evaluation. 2-patient did have resolution of her fever the patient white count normalized blood culture have been negative so far, sputum is growing MSSA with the patient is being treated with Unasyn duration will be 10 days total 3patient has developed extensive vaginal area candidiasis unable to use Diflucan because of drug interaction currently on Eraxis, patient has completed course of Eraxis this morning has been discontinued 4groin area candidiasis treated with with nystatin powder twice a day. 5-the patient did have resolution of the fever however the white count is trending up and also noticed to evidence of bilateral basilar infiltrate suggest pneumonia we will repeat a sputum culture and start the patient on Zosyn Dictation was produced using [employer] dictation software. please excuse any grammatical, word or spelling errors. Time with Patient: Less than 30
[2024-07-09 16:10] LABS: Magnesium 1.9 mg/dL (1.6-2.3); Potassium 4.3 mmol/L (3.5-5.1)
[2024-07-09] MEDS: PIPERACILLIN-TAZOBACTAM 3.375 GM in SODIUM CHLORIDE 0.9% 100 ML IVPB SCH (16:26)
[2024-07-09 23:15] LABS: Glucose,Whole Blood 110 mg/dL (70-110)
[2024-07-09] MEDS: hydrALAZINE HCL 20 MG/ML 1 ML VIAL IVP PRN (23:36)
[2024-07-10] MEDS: LORazepam 1 MG/0.5 ML VIAL IV PRN (00:09)
[2024-07-10 01:24] LABS: Glucose,Whole Blood 103 mg/dL (70-110)
[2024-07-10 05:14] LABS: Glucose,Whole Blood 109 mg/dL (70-110)
--- NOTE | 2024-07-10 05:50 | XR ---
EXAMINATION TYPE: XR chest 1V portable DATE OF EXAM: 07/10/2024 CLINICAL INDICATION: Female, 28 years old with history of mechanical ventilation, progress study. TECHNIQUE: Single AP portable semiupright view of the chest is obtained. COMPARISON: Chest x-ray from one day earlier and older studies. FINDINGS: Stable tracheostomy tube. Persistent left greater than right bibasilar increased opacities. Cardiac silhouette size is stable a nd upper limits of normal. Osseous structures are intact. IMPRESSION: Persistent left greater than right bilateral lower lung acute infiltrates and/or atelecta sis and likely small bilateral pleural effusions. No significant change from one day earlier. [facility], , 07/10/2024 5:47 AM
[2024-07-10 06:00] LABS: ABG Base Excess 3.2 mmol/L; ABG HCO3 27 mmol/L (21-25); ABG Oxygen Saturation 98.6 % (94-97); ABG PCO2 38 mmHg (35-45); ABG PH 7.46 (7.35-7.45); ABG PO2 113 mmHg (83-108); ABG TCO2 28 mmol/L (19-24); Allen Test Performed? Yes
[2024-07-10 06:02] LABS: Basophils % (A) 0 %; Eosinophils % (A) 0 %; HCT 42.1 % (34.0-46.0); Lymphocytes # (A) 2.1 k/uL (1.0-4.8); Lymphocytes % (A) 12 %; MCV 96.8 fL (80.0-100.0); Mean Platelet Volume 8.2; Monocytes # (A) 0.6 k/uL (0-1.0); Monocytes % (A) 3 %; Neutrophils # (A) 14.5 k/uL (1.3-7.7); Neutrophils % (A) 83 %; Platelet Count 303 k/uL (150-450); RBC 4.35 m/uL (3.80-5.40); RDW 14.9 % (11.5-15.5); WBC 17.5 k/uL (3.8-10.6)
--- NOTE | 2024-07-10 06:11 | P.PN ---
Subjective Progress Note Date: 07/10/24 28 year old F with PMH of anxiety and borderline personality disorder on Wellbutrin presented after intentional ingestion of Wellbutrin. Patient is psychotic at the time my evaluation does not provide reliable history. According to ER provider signout as well as chart review, patient ingested somewhere between 50-90 extended release Wellbutrin tablets and an overdose attempt. Patient is clearly agitated, tachycardic at the time my evaluation. Upon arrival patient was afebrile, 148/96, heart rate 83. Patient subsequently received activated charcoal, was started on IV fluids, and given a total of 7 mg of Ativan while on continuous telemetry, with heart rates increasing to the 130s to 140s. The ER provider did contact poison control control who recommended medical monitoring until patient is stable for transfer to the mental health unit. Review of lab work shows normal CBC, CO2 of 20, ALT of 91, negative troponin, normal lactic acid, negative salicylate level, alcohol level, Tylenol level. Initial EKG shows normal sinus rhythm with a short HI interval and right axis deviation. Patient was admitted to the cardiac selective floor with telemetry, with low threshold for ICU escalation. Received multiple doses of Ativan + Librium, remained agitated, intubated on 06/27. Concerns for aspiration on 06/28, started on Zosyn with Vancomycin added for staph sputum Cx. IV consulted, switched to Unasyn on 06/29. Eraxis started for Vaginal candidiasis. Completed 4 days of Eraxis and 10 days of Unasyn on 07/08. Started on Zosyn for leukocytosis on 07/10. Concerns for seizures, started on Depakote, Neurology consulted. CT head showed no acute hemorrhage, areas of low-attenuation in the bilateral cerebellar hemisphere slightly more prominent on the right, per neurology, could be artifact. EEG done in was abnormal, showed background slowing suggestive of mild encephalopathy likely due to toxic metabolic derangement as well as medication use, no epileptiform discharges, seizures. Poison control recommended phenobarbital 570 mg IV x1 on 06/29. Continued on Valproic acid 250 mg IV BID. Difficulty with extubation, CTA chest 07/02 showed no PE, multifocal PNA, cardiomegaly with small pleural effusions. Underwent successful Trach/PEG on 07/05. Difficulty with placement. Case management on board. 07/10 Patient was seen and examined. Intubated. Propofol and Midazolam has been weaned off. Vent settings include rate 16, tidal volume 500, FiO2 50% with PEEP of 10. Started on Zosyn 3.75g IV TID for worsening leukocytosis on 07/09. Tmax 100F over the past 24H. CBC shows WBC 17.5. ABG pH 7.46, pCO2 38, pO2 113 on FiO2 50. CXR shows persistent bilateral infiltrates. Vitals BP 119/70, RR 27, T 100F, HR 105, 96% on FiO2 50%. General: Intubated. Obese. Derm: warm, dry Head: atraumatic, normocephalic, symmetric, tracheostomy Eyes: no lid lag, anicteric sclera, opens eyes and tracking Mouth: no lip lesion, mucus membranes moist Cardiovascular: S1S2 tachy, no murmur Lungs: Bilateral rhonchi, no rales , no accessory muscle use Ext: no gross muscle atrophy, no edema, no contractures Neuro: Unable to determine Psych: Unable to determine + PEG + Archer Based on my assessment of this patient, this patient meets a high complexity level of care. Acute respiratory failure s/p intubation for airway protection 06/27: CTA chest negative for PE but does show multifocal PNA with cardiomegaly and small pleural effusions. Status post PEG/Trach 07/05. Sepsis likely secondary to aspiration pneumonia with S. aureus Sputum Cx: Completed 10 days of Unasyn on 07/08. Started on Zosyn 3.75g IV TID for worsening leukocytosis on 07/09. Repeat UA, BCx, Sputum Cx, Pro-jonathan ordered 07/10. Tylenol 650 mg PO Q6H PRN fever. Elevated HOB. Aspiration precautions. Vent management per Pulmonary. Acute metabolic encephalopathy due to below: CT head 06/29 no acute process. B12 1207. Folate 707. EEG shows encephalopathy with no seizure activity, Valproic acid discontinued by Neurology on 07/09. Seizure precautions. Neurology on board. Intentional overdose with Wellbutrin Iron def anemia: Iron level of 9. Defer IV iron while treating active infection. Monitor Hg. Transfuse if Hg < 7. Constipation: Miralax 17g PO QHS. Lactulose 20g PO QD PRN. Anxiety and Borderline personality disorder: Pyschiatry on board. Resolved: Metabolic acidosis, Hypokalemia, Hypomagnesemia CODE STATUS: FULL CODE. DVT Prophylaxis: Heparin SQ GI Prophylaxis: Protonix IV Designated medical POA if patient is not able to make medical decisions for themselves: I have reviewed the following national sales consultant notes: I have reviewed the results of the following tests: CBC, ABG. I have ordered the following tests: BCx. Procal. UA/UCx. I have discussed the care of this patient with the following independent historian: I have independently interpreted the following test below: CXR I have discussed the management of this patient with the following physician: Objective - Vital Signs Vital signs: Vital Signs Temp 100.0 F H 07/10/24 04:00 Pulse 96 07/10/24 04:00 Resp 22 07/10/24 04:00 BP 119/70 07/10/24 03:00 Pulse Ox 98 07/10/24 04:00 FiO2 50 07/10/24 04:05 Intake & Output 07/09/24 07/09/24 07/10/24 06:59 18:59 06:59 Intake Total 893.337 695.104 Output Total 3250 2900 Balance -2356.663 -2204.896 Weight 119.7 kg Intake: IV 320 200 0.9 @ KVO 220 200 Potassium Chloride 20 meq In Water For Injection 1 100ml.bag @ 50 mls/hr IVPB Q2H BABS Rx#: [id number] Valproate Sodium 250 mg 100 In Sodium Chloride 0.9% 100 ml @ 100 mls/hr IVPB Q12HR BABS Rx#:[id number] Intake, IV Titration 3.337 75.104 Amount propofoL 1,000 mg In 3.337 75.104 Empty Bag 1 bag @ 15 MCG/ KG/MIN 9.846 mls/hr IV . [id number] BABS Rx#:[id number] Tube Feeding 480 360 Other 90 60 Output: Urine 3250 2900 Other: Voiding Method Indwelling Catheter Indwelling Catheter ABP, PAP, CO, CI - Last Documented Arterial Blood Pressure 112/61 - Labs CBC & Chem 7: 07/10/24 05:16 07/09/24 14:36 Labs: Abnormal Lab Results - Last 24 Hours (Table) 07/09/24 07/09/24 07/09/24 Range/Units 05:45 06:04 14:36 WBC 16.3 H (3.8-10.6) k/uL MCHC 30.5 L (31.0-37.0) g/dL Neutrophils # 13.7 H (1.3-7.7) k/uL ABG pH 7.47 H (7.35-7.45) ABG pO2 114 H (83-108) mmHg ABG HCO3 27 H (21-25) mmol/L ABG Total CO2 28 H (19-24) mmol/L ABG O2 Saturation 98.7 H (94-97) % Chloride 108 H (98-107) mmol/L Creatinine 0.39 L (0.52-1.04) mg/dL Glucose 109 H (74-99) mg/dL
[2024-07-10 06:17] LABS: African American GFR (CKD) >90 (>60 ml/min/1.73 sqM); Anion Gap 10 mmol/L; Blood Urea Nitrogen 15 mg/dL (7-17); Calcium 9.2 mg/dL (8.4-10.2); Carbon Dioxide 27 mmol/L (22-30); Chloride 105 mmol/L (98-107); Glucose 100 mg/dL (74-99); Non-African American GFR(CKD) >90 (>60 ml/min/1.73 sqM); Potassium 3.7 mmol/L (3.5-5.1); Sodium 142 mmol/L (137-145)
[2024-07-10] MEDS: POTASSIUM CHLORIDE 10 MEQ in WATER FOR INJECTION 1 100ML.BAG IVPB SCH (06:44)
[2024-07-10 07:15] LABS: Appearance,Urine Clear (Clear); Bilirubin,Urine Negative (Negative); Blood,Urine Trace (Negative); Budding Yeast,Urine Rare /hpf; Color,Urine Colorless; Glucose,Urine (UA) Negative (Negative); Hyaline Casts,Urine 1 /lpf (0-2); Hyphae Yeast, Urine Rare /hpf; Ketones,Urine Negative (Negative); Leukocyte Esterase,Urine Small (Negative); Mucus,Urine Rare /hpf; Nitrite,Urine Negative (Negative); Protein,Urine Negative (Negative); RBC,Urine 10 /hpf (0-5); Specific Gravity,Urine 1.015 (1.001-1.035); Urobilinogen,Urine <2.0 mg/dL (<2.0); WBC,Urine 12 /hpf (0-5)
--- NOTE | 2024-07-10 10:39 | P.PN ---
Subjective Progress Note Date: 07/10/24 On 07/10/2024, the patient is being seen for a follow-up. The patient is awake and alert and communicating. Overnight, she became slightly more restless and the patient was started on low-dose propofol which is running at 50 mcg/kg/min. This morning, her tracheostomy site is intact. She has a #[address] She is on assist-control mode at rate of 60, tidal volume of 500, FiO2 of 50% with a PEEP of 10. Blood gas showed a pH of 7.46 with a pCO2 of 38 and pO2 113. The patient has a PEG tube for enteral feeding and nutritional support. He is on vital HP at rate of 40 cc an hour. She is having loose liquidy bowel movements. White cell count was elevated at 17.5 with a hemoglobin of 13. Based on that, the patient was started empiric antibiotic coverage with IV Zosyn. Chest x-ray from today shows no significant airspace disease or consolidation. There is some persistent left more than right basilar infiltrate/atelectasis possibly some small pleural effusions. Otherwise, her sodium is at 142, potassium level 3.7, bicarbonate 27, BUN is 15 with a creatinine of 0.5. Repeat cultures are still pending. Blood cultures are negative. The patient has a femoral triple-lumen catheter in place. She is on Prozac. Her psychiatric medication needs to be reevaluated by the psychiatrist. She was taking a combination of Pristiq, Wellbutrin and Lamictal on an outpatient basis. Objective - Vital Signs Vital signs: Vital Signs Temp 99.1 F 07/10/24 08:00 Pulse 111 H 07/10/24 08:00 Resp 18 07/10/24 08:00 BP 144/92 07/10/24 08:00 Pulse Ox 98 07/10/24 08:00 FiO2 50 07/10/24 08:08 Intake & Output 07/09/24 07/10/24 07/10/24 18:59 06:59 18:59 Intake Total 893.337 775.104 60 Output Total 3250 3225 125 Balance -2356.663 -2449.896 -65 Weight 119.7 kg Intake: IV 320 240 20 0.9 @ KVO 220 240 20 Valproate Sodium 250 mg 100 In Sodium Chloride 0.9% 100 ml @ 100 mls/hr IVPB Q12HR BABS Rx#:[id number] Intake, IV Titration 3.337 75.104 Amount propofoL 1,000 mg In 3.337 75.104 Empty Bag 1 bag @ 15 MCG/ KG/MIN 9.846 mls/hr IV . [id number] BABS Rx#:[id number] Tube Feeding 480 400 40 Other 90 60 Output: Urine 3250 3225 125 Other: Voiding Method Indwelling Catheter Indwelling Catheter ABP, PAP, CO, CI - Last Documented Arterial Blood Pressure 112/61 - Exam GENERAL EXAM: Alert, 28-year-old female, on the mechanical ventilator, following some simple commands, in no apparent distress. The patient is on low-dose propofol. She is easily arousable and she is able to communicate. HEAD: Normocephalic. EYES: Normal reaction of pupils, equal size. NOSE: Clear with pink turbinates. THROAT: No erythema or exudates. NECK: Tracheostomy tube secured in place. No masses, no JVD. Patient is #6 Shiley tracheostomy tube. The patient has a large scar over the anterior neck area. CHEST: No chest wall deformity. LUNGS: Equal air entry with few scattered rhonchi. CVS: S1 and S2 normal with no audible murmur, regular rhythm. ABDOMEN: PEG tube secured in place. No hepatosplenomegaly, normal bowel sounds, no guarding or rigidity. SPINE: No scoliosis or deformity SKIN: No rashes CENTRAL NERVOUS SYSTEM: No focal deficits, tone is normal in all 4 extremities. EXTREMITIES: There is no peripheral edema. No clubbing, no cyanosis. Peripheral pulses are intact. - Labs CBC & Chem 7: 07/10/24 05:16 07/10/24 05:16 Labs: Abnormal Lab Results - Last 24 Hours (Table) 07/09/24 07/10/24 07/10/24 Range/Units 14:36 04:41 05:16 WBC 17.5 H (3.8-10.6) k/uL Neutrophils # 14.5 H (1.3-7.7) k/uL ABG pH (7.35-7.45) ABG pO2 (83-108) mmHg ABG HCO3 (21-25) mmol/L ABG Total CO2 (19-24) mmol/L ABG O2 Saturation (94-97) % Chloride 108 H (98-107) mmol/L Creatinine 0.39 L (0.52-1.04) mg/dL Glucose 109 H (74-99) mg/dL Urine Blood Trace H (Negative) Ur Leukocyte Esterase Small H (Negative) Urine RBC 10 H (0-5) /hpf Urine WBC 12 H (0-5) /hpf Urine Mucus Rare H (None) /hpf Urine Yeast (Budding) Rare H (None) /hpf 07/10/24 07/10/24 Range/Units 05:16 05:58 WBC (3.8-10.6) k/uL Neutrophils # (1.3-7.7) k/uL ABG pH 7.46 H (7.35-7.45) ABG pO2 113 H (83-108) mmHg ABG HCO3 27 H (21-25) mmol/L ABG Total CO2 28 H (19-24) mmol/L ABG O2 Saturation 98.6 H (94-97) % Chloride (98-107) mmol/L Creatinine (0.52-1.04) mg/dL Glucose 100 H (74-99) mg/dL Urine Blood (Negative) Ur Leukocyte Esterase (Negative) Urine RBC (0-5) /hpf Urine WBC (0-5) /hpf Urine Mucus (None) /hpf Urine Yeast (Budding) (None) /hpf Assessment and Plan Plan: Acute respiratory failure, secondary to Wellbutrin overdose which required significant amount of sedation and patient developed respiratory failure requiring intubation and mechanical ventilation and diffuse bilateral pneumonia. The patient had prolonged respiratory failure, requiring tracheostomy tube insertion. Follow-up chest x-ray from today shows some limited atelectatic changes in lung base bilaterally. Stable oxygenation. Acute hypoxic respiratory failure secondary to pneumonia which has developed post intubation, likely of an aspiration type, improving Wellbutrin overdose Borderline personality disorder Suicidal attempt Aspiration pneumonia Sepsis secondary to aspiration pneumonia Electrolytes imbalance History of generalized anxiety disorder MSSA pneumonia Plan: The patient will be kept on the mechanical ventilator. Will switch her to a PSV of 7 and a PEEP of 5 Wean off propofol and use Precedex if needed As psychiatry to reevaluate her medications and the patient is currently on Prozac Embolic was restarted on an empiric basis because of some leukocytosis, pending cultures. The patient is currently on Zosyn. Continue tracheostomy care Continue PEG tube feeding for nutritional support Check stool for C. difficile Discontinue Decadron Heparin subcu for DVT prophylaxis Full physical therapy Case management working on obtaining insurance and eventual rehabilitation facility We will continue to follow and make further recommendations based on her clinical status Care evaluation was done and 31 minutes. Time with Patient: Greater than 30
[2024-07-10 12:18] LABS: Glucose,Whole Blood 104 mg/dL (70-110)
--- NOTE | 2024-07-10 13:11 | P.PN ---
Subjective Progress Note Date: 07/10/24 I am follow-up with the patient and clinically is doing better. No further seizures. Objective - Vital Signs Vital signs: Vital Signs Temp 99.1 F 07/10/24 12:00 Pulse 92 07/10/24 12:00 Resp 19 07/10/24 12:00 BP 135/90 07/10/24 12:00 Pulse Ox 97 07/10/24 12:00 FiO2 50 07/10/24 12:00 Intake & Output 07/09/24 07/10/24 07/10/24 18:59 06:59 18:59 Intake Total 893.337 775.104 390 Output Total 3250 3225 975 Balance -2356.663 -2449.896 -585 Weight 119.7 kg 119.7 kg Intake: IV 320 240 120 0.9 @ KVO 220 240 120 Valproate Sodium 250 mg 100 In Sodium Chloride 0.9% 100 ml @ 100 mls/hr IVPB Q12HR BABS Rx#:[id number] Intake, IV Titration 3.337 75.104 Amount propofoL 1,000 mg In 3.337 75.104 Empty Bag 1 bag @ 15 MCG/ KG/MIN 9.846 mls/hr IV . [id number] BABS Rx#:[id number] Tube Feeding 480 400 240 Other 90 60 30 Output: Urine 3250 3225 975 Other: Voiding Method Indwelling Catheter Indwelling Catheter Indwelling Catheter ABP, PAP, CO, CI - Last Documented Arterial Blood Pressure 112/61 - Exam General: Lying in bed and is not in acute distress. Lung: Trach Neuro: Is awake alert. She is following simple commands such as showing thumbs up, wiggling her toes. Patient is oriented to self place but did not know the year. I am able to understand the patient by reading her lips. No facial weakness. Neuro: Strength seems the patient has right upper extremity weakness compared to the left on the left upper extremity strength seems normal right upper she is able to lift above gravity but is very weak. Regarding the lowers she is able to lift the right lower more than the left lower. - Labs CBC & Chem 7: 07/10/24 05:16 07/10/24 05:16 Labs: Abnormal Lab Results - Last 24 Hours (Table) 07/09/24 07/10/24 07/10/24 Range/Units 14:36 04:41 05:16 WBC 17.5 H (3.8-10.6) k/uL Neutrophils # 14.5 H (1.3-7.7) k/uL ABG pH (7.35-7.45) ABG pO2 (83-108) mmHg ABG HCO3 (21-25) mmol/L ABG Total CO2 (19-24) mmol/L ABG O2 Saturation (94-97) % Chloride 108 H (98-107) mmol/L Creatinine 0.39 L (0.52-1.04) mg/dL Glucose 109 H (74-99) mg/dL Urine Blood Trace H (Negative) Ur Leukocyte Esterase Small H (Negative) Urine RBC 10 H (0-5) /hpf Urine WBC 12 H (0-5) /hpf Urine Mucus Rare H (None) /hpf Urine Yeast (Budding) Rare H (None) /hpf 07/10/24 07/10/24 Range/Units 05:16 05:58 WBC (3.8-10.6) k/uL Neutrophils # (1.3-7.7) k/uL ABG pH 7.46 H (7.35-7.45) ABG pO2 113 H (83-108) mmHg ABG HCO3 27 H (21-25) mmol/L ABG Total CO2 28 H (19-24) mmol/L ABG O2 Saturation 98.6 H (94-97) % Chloride (98-107) mmol/L Creatinine (0.52-1.04) mg/dL Glucose 100 H (74-99) mg/dL Urine Blood (Negative) Ur Leukocyte Esterase (Negative) Urine RBC (0-5) /hpf Urine WBC (0-5) /hpf Urine Mucus (None) /hpf Urine Yeast (Budding) (None) /hpf Assessment and Plan Assessment: This is a 28-year-old woman with a history of borderline personality disorder who presented emergency department because of a suicidal attempt by taking multiple Wellbutrin tablets. Questionable few episode of seizure-like activity: Unsure if patient is having withdrawing symptoms. If she did have a seizure its likely provoked due to her metabolic derangement and perhaps due to lowering seizure threshold from Wellbutrin. She had 4 EEGs performed so far and negative for seizure or discharges--No further seizure-like activities in the last couple days Metabolic encephalopathy, severe degree Right upper extremity and left lower extremity on examination unknown exact etiology. Status post tracheostomy and PEG tube placement 07/05/2024 Suicidal attempt Hypoglycemia Hypomagnesium History of borderline personality disorder Plan: * EEG was performed today, and it was abnormal due to presence of sporadic intermittent frontal rhythmic delta activity. This may suggest underlying encephalopathy. Otherwise the background appears to be normal. When compared to the EEG from 07/04/2024, the background has remarkably improved. No epile ptiform activity was seen. * Patient never had any epileptiform activity seen on the EEG. Initially started on Depakote during this hospital admission for questionable seizure but then was tapered by Dr. Alfonso because no seizure was noted. Therefore I stopped the Depakote on 07/09/24 since all the EEGs were negative for any seizure. * I will get a repeat CT of the head and CT cervical spine since the patient has right upper extremity on my examination she had left lower extremity. I doubt this is a stroke since she is very young but will reassess the CT. It seems the patient had two CT of the head which was negative for any acute process. * Repeat CT head performed on 06/29/2024, which revealed no acute intracranial process. * EEG 07/04/2024 was abnormal due to background slowing of moderate to severe degree. This is suggestive of generalized cerebral dysfunction as can be seen with toxic metabolic encephalopathy or related to diffuse structural brain abnormality. Clinical correlation is recommended. No obvious epileptiform activity was seen. When compared to the EEG from 06/29/2024, the intermittent background suppression seen in the previous study has resolved, but now has replaced with diffuse high amplitude theta and delta slowing as mentioned above. Follow-up EEG recommended, if clinically indicated. * Seizure precaution and pads * Psychiatry is consulted * Please avoid any further hypoglycemia and will defer correction of the electrolyte imbalance to primary and ICU team. * Will defer the rest of the medical management to primary other specialist Time with Patient: Less than 30
--- NOTE | 2024-07-10 13:23 | P.PN ---
Subjective Progress Note Date: 07/10/24 Principal diagnosis: Reason for follow-up is MSSA/aspiration pneumonia Patient is a 28-year-old female with a past medical history of dependent for reflux, anxiety and depression presenting to the hospital after the patient overdosed on 50-90 Wellbutrin tablets subsequent did have a agitation respiratory distress requiring revision admission to the ICU ID consulted because of concern for aspiration pneumonia.The patient is status post tracheostomy and PEG tube placement on 07/05/2024. On today's visit that is 07/10/2024, patient did have a low-grade fever 100 F a t 4 AM patient is currently on the vent through the trach and 50% FiO2 the patient slightly more awake and alert and and did follow some simple commands normally diarrhea and the changes reported by the nursing staff. Patient white count is 17.5, creatinine 0.52, sputum culture requested yesterday not obtained Objective - Vital Signs Vital signs: Vital Signs Temp 99.1 F 07/10/24 12:00 Pulse 92 07/10/24 12:00 Resp 19 07/10/24 12:00 BP 135/90 07/10/24 12:00 Pulse Ox 97 07/10/24 12:00 FiO2 50 07/10/24 12:00 Intake & Output 07/09/24 07/10/24 07/10/24 18:59 06:59 18:59 Intake Total 893.337 775.104 390 Output Total 3250 3225 975 Balance -2356.663 -2449.896 -585 Weight 119.7 kg 119.7 kg Intake: IV 320 240 120 0.9 @ KVO 220 240 120 Valproate Sodium 250 mg 100 In Sodium Chloride 0.9% 100 ml @ 100 mls/hr IVPB Q12HR BABS Rx#:[id number] Intake, IV Titration 3.337 75.104 Amount propofoL 1,000 mg In 3.337 75.104 Empty Bag 1 bag @ 15 MCG/ KG/MIN 9.846 mls/hr IV . [id number] BABS Rx#:[id number] Tube Feeding 480 400 240 Other 90 60 30 Output: Urine 3250 3225 975 Other: Voiding Method Indwelling Catheter Indwelling Catheter Indwelling Catheter ABP, PAP, CO, CI - Last Documented Arterial Blood Pressure 112/61 - Exam GENERAL DESCRIPTION: Middle-age female intubated through the trach RESPIRATORY SYSTEM: Unlabored breathing , decreased breath sounds at bases HEART: S1 S2 regular rate and rhythm , ABDOMEN: Soft , no tenderness EXTREMITIES: No edema feet - Labs CBC & Chem 7: 07/10/24 05:16 07/10/24 05:16 Labs: Abnormal Lab Results - Last 24 Hours (Table) 07/09/24 07/10/24 07/10/24 Range/Units 14:36 04:41 05:16 WBC 17.5 H (3.8-10.6) k/uL Neutrophils # 14.5 H (1.3-7.7) k/uL ABG pH (7.35-7.45) ABG pO2 (83-108) mmHg ABG HCO3 (21-25) mmol/L ABG Total CO2 (19-24) mmol/L ABG O2 Saturation (94-97) % Chloride 108 H (98-107) mmol/L Creatinine 0.39 L (0.52-1.04) mg/dL Glucose 109 H (74-99) mg/dL Urine Blood Trace H (Negative) Ur Leukocyte Esterase Small H (Negative) Urine RBC 10 H (0-5) /hpf Urine WBC 12 H (0-5) /hpf Urine Mucus Rare H (None) /hpf Urine Yeast (Budding) Rare H (None) /hpf 07/10/24 07/10/24 Range/Units 05:16 05:58 WBC (3.8-10.6) k/uL Neutrophils # (1.3-7.7) k/uL ABG pH 7.46 H (7.35-7.45) ABG pO2 113 H (83-108) mmHg ABG HCO3 27 H (21-25) mmol/L ABG Total CO2 28 H (19-24) mmol/L ABG O2 Saturation 98.6 H (94-97) % Chloride (98-107) mmol/L Creatinine (0.52-1.04) mg/dL Glucose 100 H (74-99) mg/dL Urine Blood (Negative) Ur Leukocyte Esterase (Negative) Urine RBC (0-5) /hpf Urine WBC (0-5) /hpf Urine Mucus (None) /hpf Urine Yeast (Budding) (None) /hpf Assessment and Plan (1) Sepsis Current Visit: Yes Status: Acute Code(s): A41.9 - SEPSIS, UNSPECIFIED ORGANISM SNOMED Code(s): 79496405 (2) Pneumonia Current Visit: Yes Status: Acute Code(s): J18.9 - PNEUMONIA, UNSPECIFIED ORGANISM SNOMED Code(s): 806670557 (3) MSSA (methicillin susceptible Staphylococcus aureus) infection Current Visit: Yes Status: Acute Code(s): A49.01 - METHICILLIN SUSCEP STAPH INFECTION, UNSP SITE SNOMED Code(s): 562505011 Plan: 1patient presenting the hospital with drug overdose with subsequent agitation respiratory distress requiring intubation concerning for possible aspiration pneumonia sputum is now growing MSSA in this patient who did have features of sepsis with fever elevated white count and hypotension requiring low-dose presso r support on initial evaluation. 2-patient did have resolution of her fever the patient white count normalized blood culture have been negative so far, sputum is growing MSSA with the patient is being treated with Unasyn duration will be 10 days total 3patient has developed extensive vaginal area candidiasis unable to use Diflucan because of drug interaction currently on Eraxis, patient has completed course of Eraxis 4groin area candidiasis treated with with nystatin powder twice a day. 5-the patient is running low-grade fever and white count is trending up sputum culture requested yesterday but never completed blood culture has been obtained today started on Zosyn we will see response Dictation was produced using [employer] dictation software. please excuse any grammatical, word or spelling errors. Time with Patient: Less than 30
--- NOTE | 2024-07-10 14:46 | P.CN ---
Psychiatric Consult - . Consult date: 07/10/24 Consult:: 07/10/24 14:37 IDENTIFYING DATA: This patient is a 28-year-old female, unemployed and staying with friend REASON FOR REFERRAL: Psychiatry was consulted for overdose HISTORY OF PRESENT ILLNESS: The patient presented to the hospital after overdosing on 50-90 Wellbutrin tabs. Patient was ultimately admitted to the ICU due to having to be intubated however received a tracheostomy and PEG tube placement on 07/05 and is currently on mechanical vent. Patient seen and evaluated in her room with sitter and father at bedside. She is a marginal historian given tracheostomy placement. She mentions taking the Wellbutrin tabs not in an attempt to kill herself however in an attempt to numb her emotions. She reports being happy that she is still alive and did not kill herself, stating she herself called her friend after she took the tabs in order to get help. She was reporting sleep difficulties prior to coming to the hospital in addition to low energy, poor concentration denying any anhedonia or appetite changes. Patient today was goal oriented, questioned about being discharged however she was reminded of the progress she has made thus far in the ICU and how it will take time for her to fully recover. She reports anxiety described as generalized. At this time patient denies any suicidal or homicidal ideations, intent or plan. Patient denies any auditory, visual hallucinations and denies any paranoia or delusions. Patients admits to using cannabis and nicotine daily, occasional alcohol. PAST PSYCHIATRIC HISTORY: Patient has a history of depression, anxiety, borderline personality disorder. Patient was most recently prescribed Wellbutrin XL 150 mg daily, Lamictal 200 mg daily, Pristiq 100 mg daily. Patient has tried Zoloft, Prozac in the past and did not find them effective. She states her PCP was filling these medications. Patient denies any previous psychiatric hospitalizations. Patient denies any psychiatric outpatient follow- up. Patient denies any history of suicide attempts in the past. PAST MEDICAL HISTORY: GERD. ALLERGIES: as per EMR. CHEMICAL DEPENDENCY HISTORY: as per HPI. FAMILY PSYCHIATRIC/SUBSTANCE USE HISTORY: Patient states her brother and mom both suffered from mental illnesses and that her mother attempted suicide. She states her mother also abused alcohol. SOCIAL HISTORY: Patient has 1 kid and is currently staying with a friend. She is unemployed, completed high school. MENTAL STATUS EXAM: General Appearance: Patient appears to be stated age is alert, pleasant, and cooperative. Patient appears to have poor hygiene and grooming wearing hospital gown with fair eye contact. She has a tracheostomy placed Behavior: Patient is calmly lying in bed without any agitated behavior. Speech: Patient's speech is nonverbal however is able to mouth her concerns Mood/Affect: Patient reports their mood is "better", affect is congruent, constricted Suicidality/Homicidality: Patient denies having any suicidal or homicidal ideation intent or plan. Perceptions: Patient denies any visual hallucinations and denies any auditory hallucinations Though content/process: There is no evidence of any delusional thought content and thought process is linear and goal-directed. Memory and concentration: AOX3, grossly intact for the purposes of this session. Can spell "WORLD" backwards Judgment and insight: Poor IMPRESSIONS: Suicide attempt via OD Major depressive disorder, recurrent, severe Cluster B traits Anxiety, unspecified Cannabis use disorder Nicotine dependence PLAN: -At this time patient DOES NOT meet criteria for inpatient psychiatric admission. -Would recommend the following medication changes/additions: Discontinue Prozac and start Cymbalta 30 mg daily for depression/anxiety, restart Lamictal at 25 mg daily for mood stabilization/impulsivity -Can discontinue 1:1 sitter at this time as patient is not currently an imminent threat to themselves -pipe assembly worker to provide patient with outpatient mental health/psychiatry resources for appropriate follow up upon discharge as patient was previously seeing her PCP for adjustments -Operations Vocational Instructor spoke with patient about substance abuse and the harmful effects on medical and mental health, patient verbally understood and agreed. -Communicated plan to patient's nurse -Will continue to follow along -Please contact with any questions.
--- NOTE | 2024-07-10 16:06 | P.PN ---
Progress Note - Text Progress Note Date: 07/10/24 HISTORY OF PRESENT ILLNESS: Patient is postop day #5 status post tracheostomy and PEG tube placement. No acute events overnight. Tolerating tube feeds at goal. PHYSICAL EXAM: VITAL SIGNS: Reviewed. GENERAL: no acute distress. HEENT: Tracheostomy site with small amount of serosanguineous oozing noted ABDOMEN: Soft. Obese. PEG tube site clean dry and intact ASSESSMENT: 1. Acute respiratory failure s/p intubation to protect airway after patient received significant sedation for agitation from Wellbutrin overdose and had an aspiration pneumonia 2. Severe protein calorie malnutrition 3. Suicide attempt with Wellbutrin overdose PLAN: -Continue Tube Feeds at goal -Continue ICU management -Continue supportive care Khoa Pruett DO [facility] [phone]
[2024-07-10] MEDS: DEXMEDETOMIDINE/0.9% NACL(PMX) 400 MCG in EMPTY BAG 1 BAG IV SCH (16:35)
[2024-07-10 18:23] LABS: Glucose,Whole Blood 86 mg/dL (70-110)
[2024-07-10] MEDS: SIMETHICONE 80 MG CHEWABLE PO STA (21:49)
[2024-07-11 00:09] LABS: Glucose,Whole Blood 105 mg/dL (70-110)
[2024-07-11 05:13] LABS: ABG Base Excess 3.1 mmol/L; ABG HCO3 27 mmol/L (21-25); ABG Oxygen Saturation 95.6 % (94-97); ABG PCO2 39 mmHg (35-45); ABG PH 7.46 (7.35-7.45); ABG PO2 78 mmHg (83-108); ABG TCO2 28 mmol/L (19-24); Allen Test Performed? Yes
[2024-07-11 05:54] LABS: Basophils % (A) 0 %; Eosinophils % (A) 0 %; HCT 34.7 % (34.0-46.0); HGB 10.8 gm/dL (11.4-16.0); Hypochromasia Slight; Lymphocytes # (A) 2.3 k/uL (1.0-4.8); Lymphocytes % (A) 18 %; MCH 30.5 pg (25.0-35.0); MCHC 31.1 g/dL (31.0-37.0); MCV 98.2 fL (80.0-100.0); Macrocytosis Slight; Mean Platelet Volume 8.5; Monocytes # (A) 0.6 k/uL (0-1.0); Monocytes % (A) 5 %; Neutrophils # (A) 9.3 k/uL (1.3-7.7); Neutrophils % (A) 76 %; Platelet Count 182 k/uL (150-450); RBC 3.54 m/uL (3.80-5.40); WBC 12.4 k/uL (3.8-10.6)
[2024-07-11 05:57] LABS: Glucose,Whole Blood 104 mg/dL (70-110)
--- NOTE | 2024-07-11 06:05 | XR ---
EXAMINATION TYPE: XR chest 1V portable DATE OF EXAM: 07/11/2024 CLINICAL INDICATION: Female, 28 years old with history of mechanical ventilation, progress study. TECHNIQUE: Single AP portable semiupright view of the chest is obtained. COMPARISON: Chest x-ray from one day earlier and older studies. FINDINGS: Stable tracheostomy tube. Persistent low lung volumes. Persistent left greater than right bibasilar increased opacities. Cardia c silhouette size is stable and mildly enlarged. Osseous structures are intact. IMPRESSION: Persistent left greater than right bilateral lower lung acute infiltrates and/or atelecta sis. No significant change from one day earlier. [facility], , 07/11/2024 6:03 AM
[2024-07-11 06:15] LABS: African American GFR (CKD) >90 (>60 ml/min/1.73 sqM); Anion Gap 7 mmol/L; Blood Urea Nitrogen 23 mg/dL (7-17); Calcium 8.6 mg/dL (8.4-10.2); Carbon Dioxide 26 mmol/L (22-30); Chloride 107 mmol/L (98-107); Glucose 128 mg/dL (74-99); Non-African American GFR(CKD) >90 (>60 ml/min/1.73 sqM); Potassium 3.3 mmol/L (3.5-5.1); Sodium 140 mmol/L (137-145)
[2024-07-11] MEDS: POTASSIUM BICARBONATE/CIT AC 20 MEQ TABLET.EFF NG-TUBE SCH (06:29)
[2024-07-11] MEDS: lamoTRIgine 25 MG TAB PO SCH (08:18)
[2024-07-11] MEDS: DULoxetine HCL 30 MG CAPSULE.DR PO SCH (08:18)
[2024-07-11] MEDS: SCOPOLAMINE 1 MG/72 HR PATCH TRANSDERM SCH (10:29)
[2024-07-11 11:44] LABS: Glucose,Whole Blood 101 mg/dL (70-110)
[2024-07-11] MEDS: NYSTATIN 100,000 UNIT/ML SUSP 500,000 UNIT/5 ML CUP PO SCH (12:11)
--- NOTE | 2024-07-11 12:59 | P.PN ---
Subjective Progress Note Date: 07/11/24 I am following up with the patient and she continues to have right upper extremity weakness. She is accompanied with her father. According to the nurse yesterday she was unable to obtain the CT of the head or cervical spine since had respiratory distress. Per the nurse her respiratory status is improved today. Objective - Vital Signs Vital signs: Vital Signs Temp 98.6 F 07/11/24 12:00 Pulse 66 07/11/24 12:00 Resp 22 07/11/24 12:00 BP 114/72 07/11/24 12:00 Pulse Ox 93 L 07/11/24 12:00 FiO2 40 07/11/24 12:00 Intake & Output 07/10/24 07/11/24 07/11/24 18:59 06:59 18:59 Intake Total 084.047 1047.970 672.869 Output Total 9530 520 8188 Balance -1030.566 282.970 -352.131 Weight 119.7 kg 117.5 kg Intake: IV 240 240 150 0.9 @ KVO 240 240 30 Invasive Line 5 20 Piperacillin-Tazobactam 3 100 .375 gm In Sodium Chloride 0.9% 100 ml @ 25 mls/hr IVPB Q8H BABS Rx#: [id number] Intake, IV Titration 89.434 192.970 72.869 Amount Dexmedetomidine/0.9% NaCl 192.970 72.869 (Pmx) 400 mcg In Empty Bag 1 bag @ 0.2 MCG/KG/HR 5.985 mls/hr IV .[id number] BABS Rx#:[id number] propofoL 1,000 mg In 89.434 Empty Bag 1 bag @ 15 MCG/ KG/MIN 9.846 mls/hr IV . [id number] BABS Rx#:[id number] Tube Feeding 495 660 330 Other 90 90 120 Output: Urine 3297 637 3200 Stool 0 Other: Voiding Method Indwelling Catheter Indwelling Catheter Indwelling Catheter # Bowel Movements 1 ABP, PAP, CO, CI - Last Documented Arterial Blood Pressure 112/61 - Exam General: Lying in bed and is not in acute distress. Lung: Trach Neuro: Is awake alert. She is following simple commands such as showing thumbs up, wiggling her toes. Patient is oriented to self place, place. I am able to understand the patient by reading her lips. No facial weakness. Normal shoulder shrug bilaterally. Neuro: Strength seems the patient has right upper extremity weakness compared to the left. Right upper proximally is 2. Upon assisting having elbow flexed 90 degrees, she had extension 4+ with flexion 2-3. Right hand channel sales director was 5/5. Otherwise strength is 5/5. It seems the patient had IV line on the right upper extremity that was removed - Labs CBC & Chem 7: 07/11/24 05:24 07/11/24 05:24 Labs: Abnormal Lab Results - Last 24 Hours (Table) 07/11/24 07/11/24 07/11/24 Range/Units 05:11 05:24 05:24 WBC 12.4 H (3.8-10.6) k/uL RBC 3.54 L (3.80-5.40) m/uL Hgb 10.8 L (11.4-16.0) gm/dL Neutrophils # 9.3 H (1.3-7.7) k/uL ABG pH 7.46 H (7.35-7.45) ABG pO2 78 L (83-108) mmHg ABG HCO3 27 H (21-25) mmol/L ABG Total CO2 28 H (19-24) mmol/L Hemoglobin 10.5 L (11.4-16.0) gm/dL Potassium 3.3 L (3.5-5.1) mmol/L BUN 23 H (7-17) mg/dL Glucose 128 H (74-99) mg/dL Microbiology - Last 24 Hours (Table) 07/10/24 16:10 Gram Stain - Preliminary Sputum Sputum Culture - Preliminary 07/10/24 04:41 Urine Culture - Final Urine,Voided Assessment and Plan Assessment: This is a 28-year-old woman with a history of borderline personality disorder who presented emergency department because of a suicidal attempt by taking multi ple Wellbutrin tablets. Questionable few episode of seizure-like activity: Unsure if patient is having withdrawing symptoms. If she did have a seizure its likely provoked due to her metabolic derangement and perhaps due to lowering seizure threshold from Wellbutrin. She had 4 EEGs performed so far and negative for seizure or discharges--No further seizure-like activities in the last couple days Metabolic encephalopathy, severe degree Right upper extremity and left lower extremity on examination unknown exact etiology. Status post tracheostomy and PEG tube placement 07/05/2024 Suicidal attempt Hypoglycemia Hypomagnesium History of borderline personality disorder Plan: * EEG was performed today, and it was abnormal due to presence of sporadic inter mittent frontal rhythmic delta activity. This may suggest underlying encephalopathy. Otherwise the background appears to be normal. When compared to the EEG from 07/04/2024, the background has remarkably improved. No epileptiform activity was seen. * Patient never had any epileptiform activity seen on the EEG. Initially started on Depakote during this hospital admission for questionable seizure but then was tapered by Dr. Alfonso because no seizure was noted. Therefore I stopped the Depakote on 07/09/24 since all the EEGs were negative for any seizure. * I will get a repeat CT of the head and CT cervical spine since the patient has right upper extremity and feel possibly neuropathy from her IV line. I doubt this is stroke. She had two CT of the head during this hopsital visit and were negative for any acute process. * Repeat CT head performed on 06/29/2024, which revealed no acute intracranial process. * EEG 07/04/2024 was abnormal due to background slowing of moderate to severe degree. This is suggestive of generalized cerebral dysfunction as can be seen with toxic metabolic encephalopathy or related to diffuse structural brain abnormality. Clinical correlation is recommended. No obvious epileptiform activity was seen. When compared to the EEG from 06/29/2024, the intermittent background suppression seen in the previous study has resolved, but now has replaced with diffuse high amplitude theta and delta slowing as mentioned above. Follow-up EEG recommended, if clinically indicated. * Seizure precaution and pads * Psychiatry is consulted * Please avoid any further hypoglycemia and will defer correction of the electrolyte imbalance to primary and ICU team. * Will defer the rest of the medical management to primary other specialist The plan is discussed with patient, her father who is at bedside and her nurse. Time with Patient: Less than 30
--- NOTE | 2024-07-11 13:16 | P.PN ---
Subjective Progress Note Date: 07/11/24 Hospital Course: 28 year old F with PMH of anxiety and borderline personality disorder on Wellb utrin presented after intentional ingestion of Wellbutrin. Patient is psychotic at the time my evaluation does not provide reliable history. According to ER provider signout as well as chart review, patient ingested somewhere between 50- 90 extended release Wellbutrin tablets and an overdose attempt. Patient is clearly agitated, tachycardic at the time my evaluation. Upon arrival patient was afebrile, 148/96, heart rate 83. Patient subsequently received activated charcoal, was started on IV fluids, and given a total of 7 mg of Ativan while on continuous telemetry, with heart rates increasing to the 130s to 140s. The ER provider did contact poison control control who recommended medical monitoring until patient is stable for transfer to the mental health unit. Review of lab work shows normal CBC, CO2 of 20, ALT of 91, negative troponin, normal lactic acid, negative salicylate level, alcohol level, Tylenol level. Initial EKG shows normal sinus rhythm with a short RI interval and right axis deviation. Patient was admitted to the cardiac selective floor with telemetry, with low threshold for ICU escalation. Received multiple doses of Ativan + Librium, remained agitated, intubated on 06/27. Concerns for aspiration on 06/28, started on Zosyn with Vancomycin added for staph sputum Cx. IV consulted, switched to Unasyn on 06/29. Eraxis started for Vaginal candidiasis. Completed 4 days of Eraxis and 10 days of Unasyn on 07/08. Started on Zosyn for leukocytosis on 07/10. Concerns for seizures, started on Depakote, Neurology consulted. CT head showed no acute hemorrhage, areas of low-attenuation in the bilateral cerebellar hemisphere slightly more prominent on the right, per neurology, could be artifact. EEG done in was abnormal, showed background slowing suggestive of mild encephalopathy likely due to toxic metabolic derangement as well as medication use, no epileptiform discharges, seizures. Poison control recommended phenobarbital 570 mg IV x1 on 06/29. Continued on Valproic acid 250 mg IV BID. Difficulty with extubation, CTA chest 07/02 showed no PE, multifocal PNA, c ardiomegaly with small pleural effusions. Underwent successful Trach/PEG on 07/05. Started on Zosyn 3.75g IV TID for worsening leukocytosis on 07/09 07/11, patient was put on trach mask of 40%, length on standby afebrile since 07/10 4 AM Difficulty with placement. Case management on board. Pertinent Imaging: Chest x-ray with persistent bilateral lower lung infiltrates left greater than right Subjective: Nods yes or no, denied pain, Pertinent positives and negatives as discussed above, a complete review of systems was performed and all other systems are negative. Vitals Signs Reviewed. General: [nontoxic], [no distress], [appears at stated age] Derm: [warm], [dry] Head: [atraumatic], [normocephalic], [symmetric], trach Eyes: [EOMI], [no lid lag], [anicteric sclera] Mouth: [no lip lesion], [mucus membranes moist] Cardiovascular: [S1S2 reg], [no murmur] Lungs: Bilateral rhonchi, [no accessory muscle use] Abdominal: [soft], [ nontender to palpation], [no guarding], [no appreciable organomegaly] PEG tube in place Ext: [no gross muscle atrophy], [no edema], [no contractures] Neuro: [ CN II-XI grossly intact], [no focal neuro deficits] Psych: [Alert], [oriented], [appropriate affect] Data Reviewed Today: Pertinent Labs: WBC 12.4, BUN 23, normal platelet count, ABG with pH of 7.46, pCO2 39, BUN 27, sodium 140, potassium 3.3, creatinine normal, glucose controlled Assessment and Plan: Acute respiratory failure s/p intubation for airway protection 06/27 Sepsis likely secondary to aspiration pneumonia with S. aureus Sputum Cx Status post PEG/Trach 07/05 -CTA chest negative for PE but does show multifocal PNA with cardiomegaly and small pleural effusions. . -Completed 10 days of Unasyn on 07/08. Started on Zosyn 3.75g IV TID for worsening leukocytosis on 07/09. Repeat UA, BCx, Sputum Cx, Pro-jonathan ordered 07/10. Tylenol 650 mg PO Q6H PRN fever. Elevated HOB. Aspiration precautions. Vent management per Pulmonary. -on precedex, per icu, plan to contact psychiatry to adjust anxiolitics and wean precedex . started on cymbalta 30 Acute metabolic encephalopathy due to below: CT head 06/29 no acute process. B12 1207. Folate 707. EEG shows encephalopathy with no seizure activity, Valproic acid discontinued by Neurology on 07/09. Seizure precautions. Neurology on board. Intentional overdose with Wellbutrin Iron def anemia: Iron level of 9. Defer IV iron while treating active infection. Monitor Hg. Transfuse if Hg < 7. Constipation: Miralax 17g PO QHS. Lactulose 20g PO QD PRN. Anxiety and Borderline personality disorder: Pyschiatry on board. Resolved: Metabolic acidosis, Hypokalemia, Hypomagnesemia DVT ppx: Heparin Code status: Full code Anticipated discharge place: TBD Anticipated discharge time: TBD Objective - Vital Signs Vital signs: Vital Signs Temp 98.6 F 07/11/24 12:00 Pulse 66 07/11/24 12:00 Resp 22 07/11/24 12:00 BP 114/72 07/11/24 12:00 Pulse Ox 93 L 07/11/24 12:00 FiO2 40 07/11/24 12:00 Intake & Output 07/10/24 07/11/24 07/11/24 18:59 06:59 18:59 Intake Total 960.472 8640.970 672.869 Output Total 3644 270 5205 Balance -1030.566 282.970 -352.131 Weight 119.7 kg 117.5 kg Intake: IV 240 240 150 0.9 @ KVO 240 240 30 Invasive Line 5 20 Piperacillin-Tazobactam 3 100 .375 gm In Sodium Chloride 0.9% 100 ml @ 25 mls/hr IVPB Q8H BABS Rx#: [id number] Intake, IV Titration 89.434 192.970 72.869 Amount Dexmedetomidine/0.9% NaCl 192.970 72.869 (Pmx) 400 mcg In Empty Bag 1 bag @ 0.2 MCG/KG/HR 5.985 mls/hr IV .[id number] BABS Rx#:[id number] propofoL 1,000 mg In 89.434 Empty Bag 1 bag @ 15 MCG/ KG/MIN 9.846 mls/hr IV . [id number] BABS Rx#:[id number] Tube Feeding 495 660 330 Other 90 90 120 Output: Urine 7434 437 0290 Stool 0 Other: Voiding Method Indwelling Catheter Indwelling Catheter Indwelling Catheter # Bowel Movements 1 ABP, PAP, CO, CI - Last Documented Arterial Blood Pressure 112/61 - Labs CBC & Chem 7: 07/11/24 05:24 07/11/24 05:24 Labs: Abnormal Lab Results - Last 24 Hours (Table) 07/11/24 07/11/24 07/11/24 Range/Units 05:11 05:24 05:24 WBC 12.4 H (3.8-10.6) k/uL RBC 3.54 L (3.80-5.40) m/uL Hgb 10.8 L (11.4-16.0) gm/dL Neutrophils # 9.3 H (1.3-7.7) k/uL ABG pH 7.46 H (7.35-7.45) ABG pO2 78 L (83-108) mmHg ABG HCO3 27 H (21-25) mmol/L ABG Total CO2 28 H (19-24) mmol/L Hemoglobin 10.5 L (11.4-16.0) gm/dL Potassium 3.3 L (3.5-5.1) mmol/L BUN 23 H (7-17) mg/dL Glucose 128 H (74-99) mg/dL Microbiology - Last 24 Hours (Table) 07/10/24 05:16 Blood Culture - Preliminary Blood 07/10/24 16:10 Gram Stain - Preliminary Sputum Sputum Culture - Preliminary 07/10/24 04:41 Urine Culture - Final Urine,Voided
--- NOTE | 2024-07-11 14:08 | P.PN ---
Subjective Progress Note Date: 07/11/24 Principal diagnosis: Reason for follow-up is MSSA/aspiration pneumonia Patient is a 28-year-old female with a past medical history of dependent for reflux, anxiety and depression presenting to the hospital after the patient overdosed on 50-90 Wellbutrin tablets subsequent did have a agitation respiratory distress requiring revision admission to the ICU ID consulted because of concern for aspiration pneumonia.The patient is status post tracheostomy and PEG tube placement on 07/05/2024. On today's visit that is 07/11/2024, Patient is afebrile this morning patient is more awake alert and is currently breathing comfortably on trach collar did answer simple question no vomiting or diarrhea has been reported. Patient white count is 12.4 creatinine 0.6 4 repeat blood and sputum cultures currently pending Objective - Vital Signs Vital signs: Vital Signs Temp 98.6 F 07/11/24 12:00 Pulse 59 L 07/11/24 14:00 Resp 21 07/11/24 14:00 BP 109/71 07/11/24 14:00 Pulse Ox 95 07/11/24 14:00 FiO2 40 07/11/24 14:00 Intake & Output 07/10/24 07/11/24 07/11/24 18:59 06:59 18:59 Intake Total 059.950 7967.970 802.869 Output Total 1546 071 1798 Balance -1030.566 282.970 -447.131 Weight 119.7 kg 117.5 kg Intake: IV 240 240 170 0.9 @ KVO 240 240 50 Invasive Line 5 20 Piperacillin-Tazobactam 3 100 .375 gm In Sodium Chloride 0.9% 100 ml @ 25 mls/hr IVPB Q8H BABS Rx#: [id number] Intake, IV Titration 89.434 192.970 72.869 Amount Dexmedetomidine/0.9% NaCl 192.970 72.869 (Pmx) 400 mcg In Empty Bag 1 bag @ 0.2 MCG/KG/HR 5.985 mls/hr IV .[id number] BABS Rx#:[id number] propofoL 1,000 mg In 89.434 Empty Bag 1 bag @ 15 MCG/ KG/MIN 9.846 mls/hr IV . [id number] BABS Rx#:[id number] Tube Feeding 495 660 440 Other 90 90 120 Output: Urine 2171 892 9229 Stool 0 Other: Voiding Method Indwelling Catheter Indwelling Catheter Indwelling Catheter # Bowel Movements 1 ABP, PAP, CO, CI - Last Documented Arterial Blood Pressure 112/61 - Exam GENERAL DESCRIPTION: Middle-age female up in the bed in no distress RESPIRATORY SYSTEM: Unlabored breathing , decreased breath sounds at bases HEART: S1 S2 regular rate and rhythm , ABDOMEN: Soft , no tenderness EXTREMITIES: No edema feet - Labs CBC & Chem 7: 07/11/24 05:24 07/11/24 05:24 Labs: Abnormal Lab Results - Last 24 Hours (Table) 07/11/24 07/11/24 07/11/24 Range/Units 05:11 05:24 05:24 WBC 12.4 H (3.8-10.6) k/uL RBC 3.54 L (3.80-5.40) m/uL Hgb 10.8 L (11.4-16.0) gm/dL Neutrophils # 9.3 H (1.3-7.7) k/uL ABG pH 7.46 H (7.35-7.45) ABG pO2 78 L (83-108) mmHg ABG HCO3 27 H (21-25) mmol/L ABG Total CO2 28 H (19-24) mmol/L Hemoglobin 10.5 L (11.4-16.0) gm/dL Potassium 3.3 L (3.5-5.1) mmol/L BUN 23 H (7-17) mg/dL Glucose 128 H (74-99) mg/dL Microbiology - Last 24 Hours (Table) 07/10/24 05:16 Blood Culture - Preliminary Blood 07/10/24 16:10 Gram Stain - Preliminary Sputum Sputum Culture - Preliminary 07/10/24 04:41 Urine Culture - Final Urine,Voided Assessment and Plan (1) Sepsis Current Visit: Yes Status: Acute Code(s): A41.9 - SEPSIS, UNSPECIFIED ORGANISM SNOMED Code(s): 68346922 (2) Pneumonia Current Visit: Yes Status: Acute Code(s): J18.9 - PNEUMONIA, UNSPECIFIED ORGANISM SNOMED Code(s): 200346362 (3) MSSA (methicillin susceptible Staphylococcus aureus) infection Current Visit: Yes Status: Acute Code(s): A49.01 - METHICILLIN SUSCEP STAPH INFECTION, UNSP SITE SNOMED Code(s): 106716981 Plan: 1patient presenting the hospital with drug overdose with subsequent agitation respiratory distress requiring intubation concerning for possible aspiration pneumonia sputum is now growing MSSA in this patient who did have features of sepsis with fever elevated white count and hypotension requiring low-dose pressor support on initial evaluation. 2-patient did have resolution of her fever the patient white count normalized blood culture have been negative so far, sputum is growing MSSA with the patient is being treated with Unasyn duration will be 10 days total 3patient vaginal area candidiasis for which the patient has completed course of Eraxis 4groin area candidiasis treated with with nystatin powder twice a day. 5-the patient did have improvement the fever pattern white count trending down to continue with Zosyn while waiting for repeat culture to finalize Dictation was produced using [employer] dictation software. please excuse any grammatical, word or spelling errors. Time with Patient: Less than 30
--- NOTE | 2024-07-11 16:03 | P.PN ---
Subjective Progress Note Date: 07/11/24 On 07/10/2024, the patient is being seen for a follow-up. The patient is awake and alert and communicating. Overnight, she became slightly more restless and the patient was started on low-dose propofol which is running at 50 mcg/kg/min. This morning, her tracheostomy site is intact. She has a #[address] She is on assist-control mode at rate of 60, tidal volume of 500, FiO2 of 50% with a PEEP of 10. Blood gas showed a pH of 7.46 with a pCO2 of 38 and pO2 113. The patient has a PEG tube for enteral feeding and nutritional support. He is on vital HP at rate of 40 cc an hour. She is having loose liquidy bowel movements. White cell count was elevated at 17.5 with a hemoglobin of 13. Based on that, the patient was started empiric antibiotic coverage with IV Zosyn. Chest x-ray from today shows no significant airspace disease or consolidation. There is some persistent left more than right basilar infiltrate/atelectasis possibly some small pleural effusions. Otherwise, her sodium is at 142, potassium level 3.7, bicarbonate 27, BUN is 15 with a creatinine of 0.5. Repeat cultures are still pending. Blood cultures are negative. The patient has a femoral triple-lumen catheter in place. She is on Prozac. Her psychiatric medication needs to be reevaluated by the psychiatrist. She was taking a combination of Pristiq, Wellbutrin and Lamictal on an outpatient basis. 07/11/2024, the patient is arousable. She was taken off the propofol and the patient was started on Precedex to control her restlessness and agitation. The patient has done better with Precedex which is currently running at 0.5 mcg/kg/h. She is calm and comfortable and arousable. This morning, she still on the mechanical ventilator. She is on assist-control at rate of 16, tidal volume of 500, FiO2 50% with a PEEP of 5. Blood gas showed a pH of 7.46 with a pCO2 of 39 and pO2 of 78. The patient has excellent weaning parameters. I think her failure to wean is essentially related to increased anxiety and agitation. Based on that, I did contact this patient on the mechanical ventilator and put her on trach collar and she was very comfortable on trach collar which is currently at 40%. Her oxygenation is stable. She was having some respiratory secretions and she has an adequate cough. Scopolamine patch was also added. Meanwhile, the follow-up chest x-ray that was done this morning shows some infiltrate in the lung bases/atelectasis left more than right. Tracheostomy is up in the trachea. The white cell count is at 4.4 with a hemoglobin of 10.8 and a platelet count of 182. Sodium is at 140, potassium is at 3.3, BUN 23 and a creatinine of 0.6. The patient was seen by psychiatry. The patient was started on Cymbalta 30 mg p.o. daily and the patient was also started on Lamictal 25 mg p.o. daily. She is profoundly weak yet awake and alert and communicating. No new complaints otherwise for now. Objective - Vital Signs Vital signs: Vital Signs Temp 99.2 F 07/11/24 08:00 Pulse 96 07/11/24 07:00 Resp 29 H 07/11/24 08:00 BP 121/75 07/11/24 08:00 Pulse Ox 96 07/11/24 08:00 FiO2 50 07/11/24 08:32 Intake & Output 07/10/24 07/11/24 07/11/24 18:59 06:59 18:59 Intake Total 298.208 9937.970 392.482 Output Total 1945 900 325 Balance -1030.566 282.970 67.482 Weight 119.7 kg 117.5 kg Intake: IV 240 240 130 0.9 @ KVO 240 240 20 Invasive Line 5 10 Piperacillin-Tazobactam 3 100 .375 gm In Sodium Chloride 0.9% 100 ml @ 25 mls/hr IVPB Q8H [facility] Rx#: [id number] Intake, IV Titration 89.434 192.970 7.482 Amount Dexmedetomidine/0.9% NaCl 192.970 7.482 (Pmx) 400 mcg In Empty Bag 1 bag @ 0.2 MCG/KG/HR 5.985 mls/hr IV .[id number] [facility] Rx#:[id number] propofoL 1,000 mg In 89.434 Empty Bag 1 bag @ 15 MCG/ KG/MIN 9.846 mls/hr IV . [id number] [facility] Rx#:[id number] Tube Feeding 495 660 165 Other 90 90 90 Output: Urine 1945 900 325 Stool 0 Other: Voiding Method Indwelling Catheter Indwelling Catheter # Bowel Movements 0 ABP, PAP, CO, CI - Last Documented Arterial Blood Pressure 112/61 - Exam GENERAL EXAM: Alert, 28-year-old female, patient is currently on Precedex. The patient is on trach collar at 40% FiO2. HEAD: Normocephalic. EYES: Normal reaction of pupils, equal size. NOSE: Clear with pink turbinates. THROAT: No erythema or exudates. NECK: Tracheostomy tube secured in place. No masses, no JVD. Patient is #6 Shiley tracheostomy tube. The patient has a large scar over the anterior neck area. CHEST: No chest wall deformity. LUNGS: Equal air entry with few scattered rhonchi. CVS: S1 and S2 normal with no audible murmur, regular rhythm. ABDOMEN: PEG tube secured in place. No hepatosplenomegaly, normal bowel sounds, no guarding or rigidity. SPINE: No scoliosis or deformity SKIN: No rashes CENTRAL NERVOUS SYSTEM: No focal deficits, tone is normal in all 4 extremities. EXTREMITIES: There is no peripheral edema. No clubbing, no cyanosis. Peripheral pulses are intact. - Labs CBC & Chem 7: 07/11/24 05:24 07/11/24 05:24 Labs: Abnormal Lab Results - Last 24 Hours (Table) 07/11/24 07/11/24 07/11/24 Range/Units 05:11 05:24 05:24 WBC 12.4 H (3.8-10.6) k/uL RBC 3.54 L (3.80-5.40) m/uL Hgb 10.8 L (11.4-16.0) gm/dL Neutrophils # 9.3 H (1.3-7.7) k/uL ABG pH 7.46 H (7.35-7.45) ABG pO2 78 L (83-108) mmHg ABG HCO3 27 H (21-25) mmol/L ABG Total CO2 28 H (19-24) mmol/L Hemoglobin 10.5 L (11.4-16.0) gm/dL Potassium 3.3 L (3.5-5.1) mmol/L BUN 23 H (7-17) mg/dL Glucose 128 H (74-99) mg/dL Microbiology - Last 24 Hours (Table) 07/10/24 04:41 Urine Culture - Final Urine,Voided 07/10/24 16:10 Gram Stain - Preliminary Sputum Assessment and Plan Plan: Acute respiratory failure, secondary to Wellbutrin overdose which required significant amount of sedation and patient developed respiratory failure requiring intubation and mechanical ventilation and diffuse bilateral pneumonia. The patient had prolonged respiratory failure, requiring tracheostomy tube insertion. Follow-up chest x-ray from today shows some limited atelectatic changes in lung base bilaterally. Stable oxygenation. The patient was taken off the mechanical ventilator and placed on trach collar 40% FiO2. Respiratory secretions are present and the patient has adequate cough and adequate ability to handle respiratory secretions. Scopolamine patch was also added. Chest x- ray from today was noted. Acute hypoxic respiratory failure secondary to pneumonia which has developed post intubation, likely of an aspiration type, improving, the patient is currently on a 40% trach collar. Wellbutrin overdose Borderline personality disorder Suicidal attempt Aspiration pneumonia Sepsis secondary to aspiration pneumonia Electrolytes imbalance History of generalized anxiety disorder MSSA pneumonia Plan: Keep the patient on 40% trach collar and monitor respiratory status very closely. Scopolamine patch Pulmonary toileting and suctioning Precedex will be gradually weaned off As psychiatry to reevaluate her medications and the patient is currently on Lamictal and Cymbalta Embolic was restarted on an empiric basis because of some leukocytosis, pending cultures. The patient is currently on Zosyn. Continue tracheostomy care Continue PEG tube feeding for nutritional support Diarrhea has subsided Heparin subcu for DVT prophylaxis Full physical therapy Case management working on obtaining insurance and eventual rehabilitation facility We will continue to follow and make further recommendations based on her clinical status Care evaluation was done and 31 minutes. Time with Patient: Greater than 30
--- NOTE | 2024-07-11 16:48 | CT ---
EXAMINATION TYPE: CT brain cspine wo con DATE OF EXAM: 07/11/2024 4:38 PM COMPARISON: None. CLINICAL INDICATION: Female, 28 years old with history of Right upper extremity weakness; Right upper extremity weakness, pain TECHNIQUE: Brain: Multiple axial CT images of the brain were obtained without IV contrast. Cspine: Axial CT images from the skull base to the inferior aspect of T2 we obtained without intraven ous contrast. Coronal and sagittal reformatted images were also reviewed. . CT DLP: 1698.6 mGycm, Automated exposure control for dose reduction was used. FINDINGS: Brain: Extra-axial spaces: No abnormal extra-axial fluid collections. Ventricular system: Within normal limits Cerebral parenchyma: No acute intraparenchymal hemorrhage or mass effect. The agarwal-white junction is well differentiated. Cerebellum: Unremarkable. Mass effect: No evidence of midline shift. Intracranial vasculature: unremarkable Soft tissues: Normal. Calvarium/osseous structures: No depressed skull fracture. Paranasal sinuses and mastoid air cells: Clear. Visualized orbits: Orbital contents are intact. Cervical spine: Fracture: None. Osseous structures: Unremarkable Vertebral alignment: Within normal limits. Spinal canal/Neural Foramina: No evidence of significant spinal canal narrowing. No evidence for sign ificant neural foraminal stenosis. Neck soft tissues: Prevertebral soft tissues are within normal limits. Other: The airway is patent. The lung apices are clear. Tracheostomy tube terminating the trachea. IMPRESSION: 1. No acute intracranial process. 2. No evidence of cervical spine fracture. 3. Mild multilevel degenerative disc disease. 4. Tracheostomy cannula terminating in the trachea. [facility], , 07/11/2024 4:45 PM
[2024-07-11 17:35] LABS: Glucose,Whole Blood 100 mg/dL (70-110)
--- NOTE | 2024-07-11 20:55 | P.PN ---
Subjective Patient seen and evaluated at bedside. Doing well on trach mask. Objective - Vital Signs Vital signs: Vital Signs Temp 98.4 F 07/11/24 20:00 Pulse 65 07/11/24 20:00 Resp 25 H 07/11/24 20:00 BP 113/68 07/11/24 20:00 Pulse Ox 92 L 07/11/24 20:00 FiO2 40 07/11/24 20:00 Intake & Output 07/11/24 07/11/24 07/12/24 06:59 18:59 06:59 Intake Total 8264.675 6608.629 105 Output Total 900 1700 150 Balance 282.970 -366.371 -45 Weight 117.5 kg Intake: IV 240 300 20 0.9 @ KVO 240 60 20 Invasive Line 5 30 Invasive Line 8 10 Piperacillin-Tazobactam 3 200 .375 gm In Sodium Chloride 0.9% 100 ml @ 25 mls/hr IVPB Q8H [facility] Rx#: [id number] Intake, IV Titration 192.970 168.629 Amount Dexmedetomidine/0.9% NaCl 192.970 168.629 (Pmx) 400 mcg In Empty Bag 1 bag @ 0.2 MCG/KG/HR 5.985 mls/hr IV .[id number] [facility] Rx#:[id number] Tube Feeding 660 715 55 Other 90 150 30 Output: Urine 900 1700 150 Other: Voiding Method Indwelling Catheter Indwelling Catheter # Bowel Movements 1 ABP, PAP, CO, CI - Last Documented Arterial Blood Pressure 112/61 - Exam gen: nad cv: rrr pul: non labored on trach mask - Labs CBC & Chem 7: 07/11/24 05:24 07/11/24 05:24 Labs: Abnormal Lab Results - Last 24 Hours (Table) 07/11/24 07/11/24 07/11/24 Range/Units 05:11 05:24 05:24 WBC 12.4 H (3.8-10.6) k/uL RBC 3.54 L (3.80-5.40) m/uL Hgb 10.8 L (11.4-16.0) gm/dL Neutrophils # 9.3 H (1.3-7.7) k/uL ABG pH 7.46 H (7.35-7.45) ABG pO2 78 L (83-108) mmHg ABG HCO3 27 H (21-25) mmol/L ABG Total CO2 28 H (19-24) mmol/L Hemoglobin 10.5 L (11.4-16.0) gm/dL Potassium 3.3 L (3.5-5.1) mmol/L BUN 23 H (7-17) mg/dL Glucose 128 H (74-99) mg/dL Microbiology - Last 24 Hours (Table) 07/10/24 05:16 Blood Culture - Preliminary Blood 07/10/24 16:10 Gram Stain - Preliminary Sputum Sputum Culture - Preliminary 07/10/24 04:41 Urine Culture - Final Urine,Voided Assessment and Plan Assessment: 28 yo female s/p tracheostomy -currently on trach mask -defer to respiratory for downsizing of trach when able Time with Patient: Less than 30
[2024-07-11 23:30] LABS: Glucose,Whole Blood 117 mg/dL (70-110)
[2024-07-12 05:31] LABS: Glucose,Whole Blood 97 mg/dL (70-110)
[2024-07-12 05:36] LABS: Basophils % (A) 0 %; Eosinophils % (A) 0 %; HCT 35.4 % (34.0-46.0); Hypochromasia Slight; Lymphocytes # (A) 2.3 k/uL (1.0-4.8); Lymphocytes % (A) 22 %; MCH 30.4 pg (25.0-35.0); MCV 98.3 fL (80.0-100.0); Macrocytosis Slight; Mean Platelet Volume 8.9; Monocytes # (A) 0.8 k/uL (0-1.0); Monocytes % (A) 8 %; Neutrophils # (A) 7.2 k/uL (1.3-7.7); Neutrophils % (A) 69 %; Platelet Count 144 k/uL (150-450); WBC 10.4 k/uL (3.8-10.6)
[2024-07-12 05:50] LABS: African American GFR (CKD) >90 (>60 ml/min/1.73 sqM); Anion Gap 7 mmol/L; Blood Urea Nitrogen 19 mg/dL (7-17); Calcium 8.8 mg/dL (8.4-10.2); Carbon Dioxide 25 mmol/L (22-30); Chloride 106 mmol/L (98-107); Glucose 99 mg/dL (74-99); Non-African American GFR(CKD) >90 (>60 ml/min/1.73 sqM); Potassium 3.6 mmol/L (3.5-5.1); Sodium 138 mmol/L (137-145)
--- NOTE | 2024-07-12 05:52 | XR ---
EXAMINATION TYPE: XR chest 1V portable DATE OF EXAM: 07/12/2024 CLINICAL INDICATION: Female, 28 years old with history of mechanical ventilation, progress study. Sh ortness of breath TECHNIQUE: Single AP portable semiupright view of the chest is obtained. COMPARISON: Chest x-ray from one day earlier and older studies. FINDINGS: Stable tracheostomy tube. Persistent low lung volumes. Persistent left greater than right bibasilar increased opacities. Cardia c silhouette size is stable and mildly enlarged. Central vascular congestion is seen. Osseous structu res are intact. IMPRESSION: Prominent central vascular congestion. Correlate for fluid overload state. Persistent lef t greater than right bilateral lower lung acute infiltrates and/or atelectasis. [facility], , 07/12/2024 5:50 AM
[2024-07-12] MEDS: POTASSIUM BICARBONATE/CIT AC 20 MEQ TABLET.EFF NG-TUBE SCH (06:14)
--- NOTE | 2024-07-12 13:30 | P.PN ---
Subjective Progress Note Date: 07/12/24 I am following-up with the patient and per nurse, the patient strength is improved compared to past couple days. Repeat CT head and CT cervical is negative for acute process explaining right upper extremity. Objective - Vital Signs Vital signs: Vital Signs Temp 98.2 F 07/12/24 08:00 Pulse 59 L 07/12/24 09:00 Resp 26 H 07/12/24 09:00 BP 106/61 07/12/24 09:00 Pulse Ox 91 L 07/12/24 09:00 FiO2 40 07/12/24 09:00 Intake & Output 07/11/24 07/12/24 07/12/24 18:59 06:59 18:59 Intake Total 6843.149 3098.269 204.65 Output Total 1700 985 60 Balance -366.371 172.269 144.65 Weight 116.8 kg Intake: IV 300 170 50 0.9 @ KVO 60 110 30 Invasive Line 5 30 30 10 Invasive Line 8 10 30 10 Piperacillin-Tazobactam 3 200 .375 gm In Sodium Chloride 0.9% 100 ml @ 25 mls/hr IVPB Q8H [facility] Rx#: [id number] Intake, IV Titration 168.629 292.269 99.65 Amount Dexmedetomidine/0.9% NaCl 168.629 192.269 99.65 (Pmx) 400 mcg In Empty Bag 1 bag @ 0.2 MCG/KG/HR 5.985 mls/hr IV .[id number] [facility] Rx#:[id number] Piperacillin-Tazobactam 3 100 .375 gm In Sodium Chloride 0.9% 100 ml @ 25 mls/hr IVPB Q8HR [facility] Rx# :[id number] Tube Feeding 715 605 55 Other 150 90 Output: Urine 1700 985 60 Other: Voiding Method Indwelling Catheter Indwelling Catheter # Bowel Movements 1 ABP, PAP, CO, CI - Last Documented Arterial Blood Pressure 112/61 - Exam General: Sitting in a recliner chair and is not in acute distress. Lung: Trach Neuro: Is awake alert. She is following simple commands such as showing thumbs up, wiggling her toes. Patient is oriented to self place, place. I am able to understand the patient by reading her lips. No facial weakness. Normal shoulder shrug bilaterally. Neuro: Strength in the right upper extremity proximally is drastically better compared to yesterday but has some distal right upper extremity. Otherwise strength is 5/5. s - Labs CBC & Chem 7: 07/12/24 05:14 07/12/24 05:14 Labs: Abnormal Lab Results - Last 24 Hours (Table) 07/11/24 07/12/24 07/12/24 Range/Units 23:28 05:14 05:14 RBC 3.60 L (3.80-5.40) m/uL Hgb 11.0 L (11.4-16.0) gm/dL Plt Count 144 L (150-450) k/uL BUN 19 H (7-17) mg/dL POC Glucose (mg/dL) 117 H (70-110) mg/dL Microbiology - Last 24 Hours (Table) 07/10/24 05:16 Blood Culture - Preliminary Blood 07/10/24 16:10 Gram Stain - Preliminary Sputum Sputum Culture - Preliminary Streptococcus pneumoniae Assessment and Plan Assessment: This is a 28-year-old woman with a history of borderline personality disorder who presented emergency department because of a suicidal attempt by taking multiple Wellbutrin tablets. Questionable few episode of seizure-like activity: Unsure if patient is having withdrawing symptoms. If she did have a seizure its likely provoked due to her metabolic derangement and perhaps due to lowering seizure threshold from Wellbutrin. She had 4 EEGs performed so far and negative for seizure or discharges--No further seizure-like activities in the last couple days Metabolic encephalopathy, severe degree---improved Right upper extremity on examination and unsure if due to neuropathy from IV line vs functional. Repeat CT head and CT cervical are unremarkable--improving today compared to yesterday Status post tracheostomy and PEG tube placement 07/05/2024 Suicidal attempt Hypoglycemia Hypomagnesium History of borderline personality disorder Plan: * EEG was performed today, and it was abnormal due to presence of sporadic intermittent frontal rhythmic delta activity. This may suggest underlying en cephalopathy. Otherwise the background appears to be normal. When compared to the EEG from 07/04/2024, the background has remarkably improved. No epileptiform activity was seen. * Patient never had any epileptiform activity seen on the EEG. Initially started on Depakote during this hospital admission for questionable seizure but then was tapered by Dr. Alfonso because no seizure was noted. Therefore I stopped the Depakote on 07/09/24 since all the EEGs were negative for any seizure. * Repeat CT head on 07/11/[address] cervical spine: No acute intracranial process. No evidence of cervical spine fracture. Mild multilevel degenerative disc disease. * Repeat CT head performed on 06/29/2024, which revealed no acute intracranial process. * EEG 07/04/2024 was abnormal due to background slowing of moderate to severe degree. This is suggestive of generalized cerebral dysfunction as can be seen with toxic metabolic encephalopathy or related to diffuse structural brain abnormality. Clinical correlation is recommended. No obvious epileptiform activity was seen. When compared to the EEG from 06/29/2024, the intermittent background suppression seen in the previous study has resolved, but now has replaced with diffuse high amplitude theta and delta slowing as mentioned above. Follow-up EEG recommended, if clinically indicated. * Seizure precaution and pads * Psychiatry is consulted * Please avoid any further hypoglycemia and will defer correction of the electrolyte imbalance to primary and ICU team. * Will defer the rest of the medical management to primary other specialist The plan is discussed with patient and her nurse. Will follow-up sporadically. Time with Patient: Less than 30
--- NOTE | 2024-07-12 14:25 | P.PN ---
Subjective Progress Note Date: 07/12/24 SURGICAL PROGRESS NOTE CHIEF COMPLAINT: Intentional overdose HISTORY OF PRESENT ILLNESS: Patient is postop day #6 status post tracheostomy and PEG tube placement. Patient remains in the ICU. Patient has trach mask. Respiratory rate was elevated this morning. Patient receiving Ativan for anxiety. Patient tolerated tube feeds. Afebrile. PHYSICAL EXAM: VITAL SIGNS: Reviewed. GENERAL: no acute distress. HEENT: Tracheostomy site dry and intact ABDOMEN: Soft. Obese. PEG tube site clean dry and intact ASSESSMENT: 1. Acute respiratory failure s/p intubation to protect airway after patient received significant sedation for agitation from Wellbutrin overdose and had an aspiration pneumonia 2. Severe protein calorie malnutrition 3. Suicide attempt with Wellbutrin overdose PLAN: -Continue tube feeds -Defer to respiratory for downsizing of trach once stable Physician [employer] note has been reviewed by physician. Signing provider agrees with the documented findings, assessment, and plan of care. Objective - Vital Signs Vital signs: Vital Signs Temp 98.2 F 07/12/24 08:00 Pulse 59 L 07/12/24 09:00 Resp 26 H 07/12/24 09:00 BP 106/61 07/12/24 09:00 Pulse Ox 91 L 07/12/24 09:00 FiO2 40 07/12/24 09:00 Intake & Output 07/11/24 07/12/24 07/12/24 18:59 06:59 18:59 Intake Total 7427.402 4750.269 204.65 Output Total 1700 985 60 Balance -366.371 172.269 144.65 Weight 116.8 kg Intake: IV 300 170 50 0.9 @ KVO 60 110 30 Invasive Line 5 30 30 10 Invasive Line 8 10 30 10 Piperacillin-Tazobactam 3 200 .375 gm In Sodium Chloride 0.9% 100 ml @ 25 mls/hr IVPB Q8H [facility] Rx#: [id number] Intake, IV Titration 168.629 292.269 99.65 Amount Dexmedetomidine/0.9% NaCl 168.629 192.269 99.65 (Pmx) 400 mcg In Empty Bag 1 bag @ 0.2 MCG/KG/HR 5.985 mls/hr IV .[id number] [facility] Rx#:[id number] Piperacillin-Tazobactam 3 100 .375 gm In Sodium Chloride 0.9% 100 ml @ 25 mls/hr IVPB Q8HR [facility] Rx# :[id number] Tube Feeding 715 605 55 Other 150 90 Output: Urine 1700 985 60 Other: Voiding Method Indwelling Catheter Indwelling Catheter # Bowel Movements 1 ABP, PAP, CO, CI - Last Documented Arterial Blood Pressure 112/61 - Labs CBC & Chem 7: 07/12/24 05:14 07/12/24 05:14 Labs: Abnormal Lab Results - Last 24 Hours (Table) 07/11/24 07/12/24 07/12/24 Range/Units 23:28 05:14 05:14 RBC 3.60 L (3.80-5.40) m/uL Hgb 11.0 L (11.4-16.0) gm/dL Plt Count 144 L (150-450) k/uL BUN 19 H (7-17) mg/dL POC Glucose (mg/dL) 117 H (70-110) mg/dL Microbiology - Last 24 Hours (Table) 07/10/24 05:16 Blood Culture - Preliminary Blood 07/10/24 16:10 Gram Stain - Preliminary Sputum Sputum Culture - Preliminary Streptococcus pneumoniae
--- NOTE | 2024-07-12 14:32 | P.PN ---
Subjective Progress Note Date: 07/12/24 Hospital Course: 28 year old F with PMH of anxiety and borderline personality disorder on Wellb utrin presented after intentional ingestion of Wellbutrin. Patient is psychotic at the time my evaluation does not provide reliable history. According to ER provider signout as well as chart review, patient ingested somewhere between 50- 90 extended release Wellbutrin tablets and an overdose attempt. Patient is clearly agitated, tachycardic at the time my evaluation. Upon arrival patient was afebrile, 148/96, heart rate 83. Patient subsequently received activated charcoal, was started on IV fluids, and given a total of 7 mg of Ativan while on continuous telemetry, with heart rates increasing to the 130s to 140s. The ER provider did contact poison control control who recommended medical monitoring until patient is stable for transfer to the mental health unit. Review of lab work shows normal CBC, CO2 of 20, ALT of 91, negative troponin, normal lactic acid, negative salicylate level, alcohol level, Tylenol level. Initial EKG shows normal sinus rhythm with a short AK interval and right axis deviation. Patient was admitted to the cardiac selective floor with telemetry, with low threshold for ICU escalation. Received multiple doses of Ativan + Librium, remained agitated, intubated on 06/27. Concerns for aspiration on 06/28, started on Zosyn with Vancomycin added for staph sputum Cx. IV consulted, switched to Unasyn on 06/29. Eraxis started for Vaginal candidiasis. Completed 4 days of Eraxis and 10 days of Unasyn on 07/08. Started on Zosyn for leukocytosis on 07/10. Concerns for seizures, started on Depakote, Neurology consulted. CT head showed no acute hemorrhage, areas of low-attenuation in the bilateral cerebellar hemisphere slightly more prominent on the right, per neurology, could be artifact. EEG done in was abnormal, showed background slowing suggestive of mild encephalopathy likely due to toxic metabolic derangement as well as medication use, no epileptiform discharges, seizures. Poison control recommended phenobarbital 570 mg IV x1 on 06/29. Continued on Valproic acid 250 mg IV BID. Difficulty with extubation, CTA chest 07/02 showed no PE, multifocal PNA, c ardiomegaly with small pleural effusions. Underwent successful Trach/PEG on 07/05. Started on Zosyn 3.75g IV TID for worsening leukocytosis on 07/09 07/11, patient was put on trach mask of 40%, afebrile since 07/10 4 AM. 07/12 on trach mask, tachypneic and anxious at times. Sputum cultures from 07/[address]repeat CT head on 07/11/[address] cervical spine: No acute intracranial process. No evidence of cervical spine fracture. Mild multilevel degenerative disc disease. Difficulty with placement.Patient has no insurance. Public guardian in process. Case management on board. Pertinent Imaging: Chest x-ray with persistent bilateral lower lung infiltrates left greater than right Subjective: Nods yes or no, denied pain, Pertinent positives and negatives as discussed above, a complete review of systems was performed and all other systems are negative. Vitals Signs Reviewed. General: [nontoxic], [no distress], [appears at stated age] Derm: [warm], [dry] Head: [atraumatic], [normocephalic], [symmetric], trach Eyes: [EOMI], [no lid lag], [anicteric sclera] Mouth: [no lip lesion], [mucus membranes moist] Cardiovascular: [S1S2 reg], [no murmur] Lungs: Bilateral rhonchi, [no accessory muscle use] Abdominal: [soft], [ nontender to palpation], [no guarding], [no appreciable organomegaly] PEG tube in place Ext: [no gross muscle atrophy], [no edema], [no contractures] Neuro: [ CN II-XI grossly intact], [no focal neuro deficits] Psych: [Alert], [oriented], [appropriate affect] Data Reviewed Today: Pertinent Labs: No leukocytosis, hemoglobin stable at 11.0, platelet count 124, sodium, potassium, bicarb, creatinine normal, glucose controlled. Assessment and Plan: Acute respiratory failure s/p intubation for airway protection 06/27 Sepsis likely secondary to aspiration pneumonia with S. aureus Sputum Cx Strep pneumo in sputum 07/10 Status post PEG/Trach 07/05 -CTA chest negative for PE but does show multifocal PNA with cardiomegaly and small pleural effusions. . -Completed 10 days of Unasyn on 07/08. Started on Zosyn 3.75g IV TID for worsening leukocytosis on 07/09. Repeat UA, BCx - NGTD Sputum Cx, Pro-jonathan ordered 07/10. Tylenol 650 mg PO Q6H PRN fever. Elevated HOB. Aspiration precautions. Vent on standby as of 07/11 AM. -on precedex, per icu, plan to contact psychiatry to adjust anxiolitics and wean precedex . started on cymbalta 30 Acute metabolic encephalopathy due to below: CT head 06/29 no acute process. B12 1207. Folate 707. EEG shows encephalopathy with no seizure activity, Valproic acid discontinued by Neurology on 07/09. Seizure precautions. Neurology on board. repeat CT head on 07/11/[address] cervical spine: No acute intracranial process. No evidence of cervical spine fracture. Mild multilevel degenerative disc disease. Intentional overdose with Wellbutrin Iron def anemia: Iron level of 9. Defer IV iron while treating active infection. Monitor Hg. Transfuse if Hg < 7. Constipation: Miralax 17g PO QHS. Lactulose 20g PO QD PRN. Anxiety and Borderline personality disorder: Pyschiatry on board. Resolved: Metabolic acidosis, Hypokalemia, Hypomagnesemia DVT ppx: Heparin Code status: Full code Anticipated discharge place: TBD Anticipated discharge time: TBD Objective - Vital Signs Vital signs: Vital Signs Temp 98.2 F 07/12/24 08:00 Pulse 59 L 07/12/24 09:00 Resp 26 H 07/12/24 09:00 BP 106/61 07/12/24 09:00 Pulse Ox 91 L 07/12/24 09:00 FiO2 40 07/12/24 09:00 Intake & Output 07/11/24 07/12/24 07/12/24 18:59 06:59 18:59 Intake Total 7632.835 7890.269 204.65 Output Total 1700 985 60 Balance -366.371 172.269 144.65 Weight 116.8 kg Intake: IV 300 170 50 0.9 @ KVO 60 110 30 Invasive Line 5 30 30 10 Invasive Line 8 10 30 10 Piperacillin-Tazobactam 3 200 .375 gm In Sodium Chloride 0.9% 100 ml @ 25 mls/hr IVPB Q8H [facility] Rx#: [id number] Intake, IV Titration 168.629 292.269 99.65 Amount Dexmedetomidine/0.9% NaCl 168.629 192.269 99.65 (Pmx) 400 mcg In Empty Bag 1 bag @ 0.2 MCG/KG/HR 5.985 mls/hr IV .[id number] [facility] Rx#:[id number] Piperacillin-Tazobactam 3 100 .375 gm In Sodium Chloride 0.9% 100 ml @ 25 mls/hr IVPB Q8HR [facility] Rx# :[id number] Tube Feeding 715 605 55 Other 150 90 Output: Urine 1700 985 60 Other: Voiding Method Indwelling Catheter Indwelling Catheter # Bowel Movements 1 ABP, PAP, CO, CI - Last Documented Arterial Blood Pressure 112/61 - Labs CBC & Chem 7: 07/12/24 05:14 07/12/24 05:14 Labs: Abnormal Lab Results - Last 24 Hours (Table) 07/11/24 07/12/24 07/12/24 Range/Units 23:28 05:14 05:14 RBC 3.60 L (3.80-5.40) m/uL Hgb 11.0 L (11.4-16.0) gm/dL Plt Count 144 L (150-450) k/uL BUN 19 H (7-17) mg/dL POC Glucose (mg/dL) 117 H (70-110) mg/dL Microbiology - Last 24 Hours (Table) 07/10/24 05:16 Blood Culture - Preliminary Blood 07/10/24 16:10 Gram Stain - Preliminary Sputum Sputum Culture - Preliminary Streptococcus pneumoniae
--- NOTE | 2024-07-12 14:40 | P.PN ---
Progress Note - Text Progress Note Date: 07/12/24 IDENTIFYING DATA: Patient is a 28-year-old female, unemployed and staying with a friend REASON FOR CONSULT: OD INTERVAL HISTORY: Patient seen and evaluated. Patient has been having difficulties weaning off Precedex. She is currently on Zosyn as chest x-ray revealed persistent bilateral lower lung acute infiltrates. Patient able to communicate with scenario writer mostly through nodding or shaking her head. Patient reportedly has displayed labile moods, sleeping well at night per staff. Patient today denied any suicidal or homicidal ideations however did report questionable auditory hallucinations that predominantly occur at nighttime. Staff member did mention that patient has never displayed any psychosis and could be referring to other staff members talking overnight. Patient denied any history of psychosis and will be monitored closely. Patient denied any baseline anxiety, is tolerating Cymbalta and lamotrigine well. MENTAL STATUS EXAM: General Appearance: Patient appears to be stated age. Patient appears to have fair hygiene and grooming wearing hospital gown with fair eye contact. She has a trach in place Behavior: Patient is calmly lying in bed without any agitated behavior. Speech: Patient is able to nod or shake her head to answer questions, nonverbal Mood/Affect: Mood appeared stable, affect is congruent, constricted Suicidality/Homicidality: Patient denies any suicidal homicidal ideations Perceptions: There are no perceptual abnormalities noted, patient did not appear internally preoccupied Though content/process: Thought process is linear and logical Judgment and insight: Poor IMPRESSIONS: Suicide attempt via OD Major depressive disorder, recurrent, severe Cluster B traits Anxiety, unspecified Cannabis use disorder Nicotine dependence PLAN: -At this time patient DOES NOT meet criteria for inpatient psychiatric admission. -Would recommend the following medication changes/additions: Increase Cymbalta to 60 mg daily tomorrow for depression/anxiety, continue Lamictal 25 mg daily for mood stabilization/impulsivity, continue Ativan 1 mg IV every 6 as needed for anxiety/restlessness while weaning off Precedex -Can discontinue 1:1 sitter at this time as patient is not currently an imminent threat to themselves -Communicated plan to patient's nurse -Will continue to follow along -Please contact with any questions.
--- NOTE | 2024-07-12 16:29 | P.PN ---
Subjective Progress Note Date: 07/12/24 On 07/10/2024, the patient is being seen for a follow-up. The patient is awake and alert and communicating. Overnight, she became slightly more restless and the patient was started on low-dose propofol which is running at 50 mcg/kg/min. This morning, her tracheostomy site is intact. She has a #[address] She is on assist-control mode at rate of 60, tidal volume of 500, FiO2 of 50% with a PEEP of 10. Blood gas showed a pH of 7.46 with a pCO2 of 38 and pO2 113. The patient has a PEG tube for enteral feeding and nutritional support. He is on vital HP at rate of 40 cc an hour. She is having loose liquidy bowel movements. White cell count was elevated at 17.5 with a hemoglobin of 13. Based on that, the patient was started empiric antibiotic coverage with IV Zosyn. Chest x-ray from today shows no significant airspace disease or consolidation. There is some persistent left more than right basilar infiltrate/atelectasis possibly some small pleural effusions. Otherwise, her sodium is at 142, potassium level 3.7, bicarbonate 27, BUN is 15 with a creatinine of 0.5. Repeat cultures are still pending. Blood cultures are negative. The patient has a femoral triple-lumen catheter in place. She is on Prozac. Her psychiatric medication needs to be reevaluated by the psychiatrist. She was taking a combination of Pristiq, Wellbutrin and Lamictal on an outpatient basis. 07/11/2024, the patient is arousable. She was taken off the propofol and the patient was started on Precedex to control her restlessness and agitation. The patient has done better with Precedex which is currently running at 0.5 mcg/kg/h. She is calm and comfortable and arousable. This morning, she still on the mechanical ventilator. She is on assist-control at rate of 16, tidal volume of 500, FiO2 50% with a PEEP of 5. Blood gas showed a pH of 7.46 with a pCO2 of 39 and pO2 of 78. The patient has excellent weaning parameters. I think her failure to wean is essentially related to increased anxiety and agitation. Based on that, I did contact this patient on the mechanical ventilator and put her on trach collar and she was very comfortable on trach collar which is currently at 40%. Her oxygenation is stable. She was having some respiratory secretions and she has an adequate cough. Scopolamine patch was also added. Meanwhile, the follow-up chest x-ray that was done this morning shows some infiltrate in the lung bases/atelectasis left more than right. Tracheostomy is up in the trachea. The white cell count is at 4.4 with a hemoglobin of 10.8 and a platelet count of 182. Sodium is at 140, potassium is at 3.3, BUN 23 and a creatinine of 0.6. The patient was seen by psychiatry. The patient was started on Cymbalta 30 mg p.o. daily and the patient was also started on Lamictal 25 mg p.o. daily. She is profoundly weak yet awake and alert and communicating. No new complaints otherwise for now. On 07/12/2024, the patient remains on Precedex which is running at 0.6 mcg/kg/h. This will be gradually weaned off. Seems to be comfortable on Precedex. Nevertheless, I am concerned that the patient is going to become more anxious and restless while being off Precedex. Meanwhile, Cymbalta dose was increased up to 60 mg p.o. daily. The patient is also on Ativan as needed and Lamictal. In terms of respiratory status, the patient is currently on a trach collar. Sp utum sample was positive for Streptococcus pneumonia and the patient remains on IV Zosyn. Noted the patient's white cell count has been improving. Respiratory secretions are still present and the patient was given a scopolamine patch. No significant respiratory distress. She has an adequate cough. She has profound weakness in all 4 extremities. WBC count is at 10.4, hemoglobin of [address] atelet count of 144. BUN is 19 with a creatinine of 0.5 and a sodium level is at 138. The platelet counts have been gradually dropping. Meanwhile, the patient continues to be on enteral feeding for nutritional support and she is on vital HP at rate of 55 cc an hour. No other significant events overnight. Objective - Vital Signs Vital signs: Vital Signs Temp 98.2 F 07/12/24 08:00 Pulse 59 L 07/12/24 09:00 Resp 26 H 07/12/24 09:00 BP 106/61 07/12/24 09:00 Pulse Ox 91 L 07/12/24 09:00 FiO2 40 07/12/24 09:00 Intake & Output 07/11/24 07/12/24 07/12/24 18:59 06:59 18:59 Intake Total 5900.240 9563.269 85 Output Total 1700 985 60 Balance -366.371 172.269 25 Weight 116.8 kg Intake: IV 300 170 30 0.9 @ KVO 60 110 30 Invasive Line 5 30 30 Invasive Line 8 10 30 Piperacillin-Tazobactam 3 200 .375 gm In Sodium Chloride 0.9% 100 ml @ 25 mls/hr IVPB Q8H [facility] Rx#: [id number] Intake, IV Titration 168.629 292.269 Amount Dexmedetomidine/0.9% NaCl 168.629 192.269 (Pmx) 400 mcg In Empty Bag 1 bag @ 0.2 MCG/KG/HR 5.985 mls/hr IV .[id number] [facility] Rx#:[id number] Piperacillin-Tazobactam 3 100 .375 gm In Sodium Chloride 0.9% 100 ml @ 25 mls/hr IVPB Q8HR [facility] Rx# :[id number] Tube Feeding 715 605 55 Other 150 90 Output: Urine 1700 985 60 Other: Voiding Method Indwelling Catheter Indwelling Catheter # Bowel Movements 1 ABP, PAP, CO, CI - Last Documented Arterial Blood Pressure 112/61 - Exam GENERAL EXAM: Alert, 28-year-old female, patient is currently on Precedex. The patient is on trach collar at 40% FiO2. HEAD: Normocephalic. EYES: Normal reaction of pupils, equal size. NOSE: Clear with pink turbinates. THROAT: No erythema or exudates. NECK: Tracheostomy tube secured in place. No masses, no JVD. Patient is #6 Shiley tracheostomy tube. The patient has a large scar over the anterior neck area. CHEST: No chest wall deformity. LUNGS: Equal air entry with few scattered rhonchi. CVS: S1 and S2 normal with no audible murmur, regular rhythm. ABDOMEN: PEG tube secured in place. No hepatosplenomegaly, normal bowel sounds, no guarding or rigidity. SPINE: No scoliosis or deformity SKIN: No rashes CENTRAL NERVOUS SYSTEM: No focal deficits, tone is normal in all 4 extremities. EXTREMITIES: There is no peripheral edema. No clubbing, no cyanosis. Peripheral pulses are intact. - Labs CBC & Chem 7: 07/12/24 05:14 07/12/24 05:14 Labs: Abnormal Lab Results - Last 24 Hours (Table) 07/11/24 07/12/24 07/12/24 Range/Units 23:28 05:14 05:14 RBC 3.60 L (3.80-5.40) m/uL Hgb 11.0 L (11.4-16.0) gm/dL Plt Count 144 L (150-450) k/uL BUN 19 H (7-17) mg/dL POC Glucose (mg/dL) 117 H (70-110) mg/dL Microbiology - Last 24 Hours (Table) 07/10/24 05:16 Blood Culture - Preliminary Blood 07/10/24 16:10 Gram Stain - Preliminary Sputum Sputum Culture - Preliminary 07/10/24 04:41 Urine Culture - Final Urine,Voided Assessment and Plan Plan: Acute respiratory failure, secondary to Wellbutrin overdose which required significant amount of sedation and patient developed respiratory failure requiring intubation and mechanical ventilation and diffuse bilateral pneumonia. The patient had prolonged respiratory failure, requiring tracheostomy tube insertion. Follow-up chest x-ray from today shows some limited atelectatic changes in lung base bilaterally. Stable oxygenation. The patient was taken off the mechanical ventilator and placed on trach collar 40% FiO2. The patient has been on trach collar for the past 48 hours. Bibasilar pulmonary infiltrates with sputum cultures positive for Streptococcus pneumonia. White cell count is improving and the patient remains on IV Zosyn. Acute hypoxic respiratory failure secondary to pneumonia which has developed post intubation, likely of an aspiration type, improving, the patient is currently on a 40% trach collar. Wellbutrin overdose Borderline personality disorder Suicidal attempt Aspiration pneumonia Sepsis secondary to aspiration pneumonia Electrolytes imbalance History of generalized anxiety disorder MSSA pneumonia Plan: Keep the patient on 40% trach collar and monitor respiratory status very closely. Scopolamine patch Pulmonary toileting and suctioning Precedex will be gradually weaned off Continue Lamictal and Cymbalta Continue IV Zosyn Continue tracheostomy care Continue PEG tube feeding for nutritional support Diarrhea has subsided Heparin subcu for DVT prophylaxis Full physical therapy Case management working on obtaining insurance and eventual rehabilitation facility We will continue to follow and make further recommendations based on her clinical status Care evaluation was done and 31 minutes. Time with Patient: Greater than 30
--- NOTE | 2024-07-12 17:06 | P.PN ---
Subjective Progress Note Date: 07/12/24 Principal diagnosis: Reason for follow-up is MSSA/aspiration pneumonia Patient is a 28-year-old female with a past medical history of dependent for reflux, anxiety and depression presenting to the hospital after the patient overdosed on 50-90 Wellbutrin tablets subsequent did have a agitation respiratory distress requiring revision admission to the ICU ID consulted because of concern for aspiration pneumonia.The patient is status post tracheostomy and PEG tube placement on 07/05/2024. On today's visit that is 07/12/2024,the patient remains to be afebrile the patie nt is currently breathing comfortably on trach collar at 40% FiO2 with no chest pain shortness of breath occasional cough abdominal pain vomiting diarrhea has been reported. Patient white count is 10.4, creatinine 0.5 2 repeat sputum is now growing Streptococcus pneumoniae Objective - Vital Signs Vital signs: Vital Signs Temp 98.9 F 07/12/24 16:00 Pulse 69 07/12/24 16:00 Resp 22 07/12/24 16:00 BP 91/56 07/12/24 16:00 Pulse Ox 93 L 07/12/24 16:00 FiO2 40 07/12/24 16:00 Intake & Output 07/11/24 07/12/24 07/12/24 18:59 06:59 18:59 Intake Total 5640.479 8475.269 1039.988 Output Total 6248 348 4735 Balance -366.371 172.269 -495.012 Weight 116.8 kg Intake: IV 300 170 250 0.9 @ KVO 60 110 90 Invasive Line 5 30 30 30 Invasive Line 8 10 30 30 Piperacillin-Tazobactam 3 200 100 .375 gm In Sodium Chloride 0.9% 100 ml @ 25 mls/hr IVPB Q8H [facility] Rx#: [id number] Intake, IV Titration 168.629 292.269 204.988 Amount Dexmedetomidine/0.9% NaCl 168.629 192.269 204.988 (Pmx) 400 mcg In Empty Bag 1 bag @ 0.2 MCG/KG/HR 5.985 mls/hr IV .[id number] [facility] Rx#:[id number] Piperacillin-Tazobactam 3 100 .375 gm In Sodium Chloride 0.9% 100 ml @ 25 mls/hr IVPB Q8HR [facility] Rx# :[id number] Tube Feeding 715 605 495 Other 150 90 90 Output: Urine 4008 406 9740 Other: Voiding Method Indwelling Catheter Indwelling Catheter Indwelling Catheter # Bowel Movements 1 1 ABP, PAP, CO, CI - Last Documented Arterial Blood Pressure 112/61 - Exam GENERAL DESCRIPTION: Middle-age female up in the bed in no distress RESPIRATORY SYSTEM: Unlabored breathing , decreased breath sounds at bases HEART: S1 S2 regular rate and rhythm , ABDOMEN: Soft , no tenderness EXTREMITIES: No edema feet - Labs CBC & Chem 7: 07/12/24 05:14 07/12/24 05:14 Labs: Abnormal Lab Results - Last 24 Hours (Table) 07/11/24 07/12/24 07/12/24 Range/Units 23:28 05:14 05:14 RBC 3.60 L (3.80-5.40) m/uL Hgb 11.0 L (11.4-16.0) gm/dL Plt Count 144 L (150-450) k/uL BUN 19 H (7-17) mg/dL POC Glucose (mg/dL) 117 H (70-110) mg/dL Microbiology - Last 24 Hours (Table) 07/10/24 05:16 Blood Culture - Preliminary Blood 07/10/24 16:10 Gram Stain - Preliminary Sputum Sputum Culture - Preliminary Streptococcus pneumoniae Assessment and Plan (1) Sepsis Current Visit: Yes Status: Acute Code(s): A41.9 - SEPSIS, UNSPECIFIED ORGANISM SNOMED Code(s): 41194632 (2) Pneumonia Current Visit: Yes Status: Acute Code(s): J18.9 - PNEUMONIA, UNSPECIFIED ORGANISM SNOMED Code(s): 993212589 (3) MSSA (methicillin susceptible Staphylococcus aureus) infection Current Visit: Yes Status: Acute Code(s): A49.01 - METHICILLIN SUSCEP STAPH INFECTION, UNSP SITE SNOMED Code(s): 683546644 Plan: 1patient presenting the hospital with drug overdose with subsequent agitation respiratory distress requiring intubation concerning for possible aspiration pneumonia sputum is now growing MSSA in this patient who did have features of sepsis with fever elevated white count and hypotension requiring low-dose p ressor support on initial evaluation. 2-patient did have resolution of her fever the patient white count normalized blood culture have been negative so far, sputum is growing MSSA with the patient is being treated with Unasyn duration will be 10 days total 3patient vaginal area candidiasis for which the patient has completed course of Eraxis 4groin area candidiasis treated with with nystatin powder twice a day. 5-the patient continue fever and sputum is now growing Streptococcus pneumoniae antibiotic will be switched over to Rocephin 2 g daily and monitor clinical course closely Dictation was produced using [employer] dictation software. please excuse any grammatical, word or spelling errors. Time with Patient: Less than 30
[2024-07-12 17:46] LABS: Glucose,Whole Blood 81 mg/dL (70-110)
[2024-07-13 00:11] LABS: Glucose,Whole Blood 83 mg/dL (70-110)
--- NOTE | 2024-07-13 05:59 | XR ---
EXAMINATION TYPE: XR chest 1V portable DATE OF EXAM: 07/13/2024 CLINICAL INDICATION: Female, 28 years old with history of folllow up pneumonia, progress study. TECHNIQUE: Single AP portable upright view of the chest is obtained. COMPARISON: Chest x-ray from one day earlier and older studies. FINDINGS: Stable tracheostomy tube. Persistent low lung volumes. Persistent bibasilar increased opacities. Cardiac silhouette size is sta ble and mildly enlarged. Central vascular congestion is redemonstrated. Osseous structures are intact . IMPRESSION: Persistent central vascular congestion. Correlate for fluid overload state. Persistent bi basilar acute infiltrates and/or atelectasis. [facility], , 07/13/2024 5:57 AM
[2024-07-13 06:29] LABS: Glucose,Whole Blood 92 mg/dL (70-110)
[2024-07-13 06:56] LABS: Basophils % (A) 0 %; Eosinophils % (A) 0 %; HCT 41.1 % (34.0-46.0); HGB 12.7 gm/dL (11.4-16.0); Hypochromasia Slight; Lymphocytes # (A) 1.8 k/uL (1.0-4.8); Lymphocytes % (A) 16 %; MCH 30.4 pg (25.0-35.0); MCV 98.1 fL (80.0-100.0); Macrocytosis Slight; Mean Platelet Volume 8.3; Monocytes # (A) 0.7 k/uL (0-1.0); Monocytes % (A) 6 %; Neutrophils # (A) 8.6 k/uL (1.3-7.7); Neutrophils % (A) 77 %; Platelet Count 190 k/uL (150-450); RBC 4.19 m/uL (3.80-5.40); WBC 11.3 k/uL (3.8-10.6)
[2024-07-13 07:19] LABS: African American GFR (CKD) >90 (>60 ml/min/1.73 sqM); Anion Gap 10 mmol/L; Blood Urea Nitrogen 15 mg/dL (7-17); Calcium 9.1 mg/dL (8.4-10.2); Carbon Dioxide 21 mmol/L (22-30); Chloride 108 mmol/L (98-107); Glucose 99 mg/dL (74-99); Non-African American GFR(CKD) >90 (>60 ml/min/1.73 sqM); Sodium 139 mmol/L (137-145)
[2024-07-13 07:23] LABS: Potassium 4.7 mmol/L (3.5-5.1)
[2024-07-13] MEDS: DULoxetine HCL 60 MG CAPSULE.DR PO SCH (08:13)
[2024-07-13 11:39] LABS: Glucose,Whole Blood 96 mg/dL (70-110)
--- NOTE | 2024-07-13 13:03 | P.PN ---
Subjective Progress Note Date: 07/13/24 Hospital Course: 28 year old F with PMH of anxiety and borderline personality disorder on Wellb utrin presented after intentional ingestion of Wellbutrin. Patient is psychotic at the time my evaluation does not provide reliable history. According to ER provider signout as well as chart review, patient ingested somewhere between 50- 90 extended release Wellbutrin tablets and an overdose attempt. Patient is clearly agitated, tachycardic at the time my evaluation. Upon arrival patient was afebrile, 148/96, heart rate 83. Patient subsequently received activated charcoal, was started on IV fluids, and given a total of 7 mg of Ativan while on continuous telemetry, with heart rates increasing to the 130s to 140s. The ER provider did contact poison control control who recommended medical monitoring until patient is stable for transfer to the mental health unit. Review of lab work shows normal CBC, CO2 of 20, ALT of 91, negative troponin, normal lactic acid, negative salicylate level, alcohol level, Tylenol level. Initial EKG shows normal sinus rhythm with a short TX interval and right axis deviation. Patient was admitted to the cardiac selective floor with telemetry, with low threshold for ICU escalation. Received multiple doses of Ativan + Librium, remained agitated, intubated on 06/27. Concerns for aspiration on 06/28, started on Zosyn with Vancomycin added for staph sputum Cx. IV consulted, switched to Unasyn on 06/29. Eraxis started for Vaginal candidiasis. Completed 4 days of Eraxis and 10 days of Unasyn on 07/08. Started on Zosyn for leukocytosis on 07/10. Concerns for seizures, started on Depakote, Neurology consulted. CT head showed no acute hemorrhage, areas of low-attenuation in the bilateral cerebellar hemisphere slightly more prominent on the right, per neurology, could be artifact. EEG done in was abnormal, showed background slowing suggestive of mild encephalopathy likely due to toxic metabolic derangement as well as medication use, no epileptiform discharges, seizures. Poison control recommended phenobarbital 570 mg IV x1 on 06/29. Continued on Valproic acid 250 mg IV BID. Difficulty with extubation, CTA chest 07/02 showed no PE, multifocal PNA, c ardiomegaly with small pleural effusions. Underwent successful Trach/PEG on 07/05. Started on Zosyn 3.75g IV TID for worsening leukocytosis on 07/09 07/11, patient was put on trach mask of 40%, afebrile since 07/10 4 AM. 07/12 on trach mask, tachypneic and anxious at times. Sputum cultures from 07/10 for s trep pneumonia patient was switched to ceftriaxone on 07/12.repeat CT head on 07/11/[address] cervical spine: No acute intracranial process. No evidence of cervical spine fracture. Mild multilevel degenerative disc disease. 07/13: Patient is tolerating trach mask well, short of breath at times, complains of diarrhea, no abdominal pain. Max temp in the past 24 hours 99.8. Precedex on hold, psychiatry increased Cymbalta to 60 mg daily, recommended to continue Ativan as needed for agitation Difficulty with placement.Patient has no insurance. Public guardian in process. Case management on board. Pertinent Imaging: Chest x-ray with persistent bilateral lower lung infiltrates left greater than right Subjective: Nods yes or no, denied pain, Pertinent positives and negatives as discussed above, a complete review of systems was performed and all other systems are negative. Vitals Signs Reviewed. General: [nontoxic], [no distress], [appears at stated age] Derm: [warm], [dry] Head: [atraumatic], [normocephalic], [symmetric], trach Eyes: [EOMI], [no lid lag], [anicteric sclera] Mouth: [no lip lesion], [mucus membranes moist] Cardiovascular: [S1S2 reg], [no murmur] Lungs: Bilateral rhonchi, [no accessory muscle use] Abdominal: [soft], [ nontender to palpation], [no guarding], [no appreciable organomegaly] PEG tube in place Ext: [no gross muscle atrophy], [no edema], [no contractures] Neuro: [ CN II-XI grossly intact], [no focal neuro deficits] Psych: [Alert], [oriented], [appropriate affect] Data Reviewed Today: Pertinent Labs: WBC 11.3, normal hemoglobin today, platelet count normal, sodium and potassium normal, bicarb 21, creatinine 0.25, glucose is controlled Assessment and Plan: Acute respiratory failure s/p intubation for airway protection 06/27 Sepsis likely secondary to aspiration pneumonia with S. aureus Sputum Cx Strep pneumo ventilator associated pneumonia Status post PEG/Trach 07/05 -CTA chest negative for PE but does show multifocal PNA with cardiomegaly and small pleural effusions. . -Completed 10 days of Unasyn on 07/08. Started on Zosyn 3.75g IV TID for worsening leukocytosis on 07/09. Repeat UA, BCx - NGTD -Switch to ceftriaxone for strep pneumo and sputum on 07/12 . Tylenol 650 mg PO Q6H PRN fever. Elevated HOB. Aspiration precautions. Vent on standby as of 07/11 AM. -Precedex on hold, psychiatry increased Cymbalta to 60 mg daily, recommended to continue Ativan as needed for agitation Acute metabolic encephalopathy due to below: CT head 06/29 no acute process. B12 1207. Folate 707. EEG shows encephalopathy with no seizure activity, Valproic acid discontinued by Neurology on 07/09. Seizure precautions. Neurology on board. repeat CT head on 07/11/[address] cervical spine: No acute intracranial process. No evidence of cervical spine fracture. Mild multilevel degenerative disc disease. Intentional overdose with Wellbutrin Iron def anemia: Iron level of 9. Defer IV iron while treating active infection. Monitor Hg. Transfuse if Hg < 7. Constipation, resolved: now has diarrhea, stopped Miralax 17g PO QHS. Lactulose 20g PO QD PRN. Anxiety and Borderline personality disorder: Pyschiatry on board. Resolved: Metabolic acidosis, Hypokalemia, Hypomagnesemia DVT ppx: Heparin Code status: Full code Anticipated discharge place: TBD Anticipated discharge time: TBD Objective - Vital Signs Vital signs: Vital Signs Temp 98.9 F 07/13/24 08:00 Pulse 101 H 07/13/24 12:00 Resp 27 H 07/13/24 12:00 BP 156/98 07/13/24 12:00 Pulse Ox 93 L 07/13/24 12:00 FiO2 35 07/13/24 09:00 Intake & Output 07/12/24 07/13/24 07/13/24 18:59 06:59 18:59 Intake Total 1153.978 865 255 Output Total 9368 7170 725 Balance -806.022 -2655 -470 Weight 111.3 kg Intake: IV 250 60 60 0.9 @ KVO 90 Invasive Line 5 30 30 10 Invasive Line 8 30 30 Piperacillin-Tazobactam 3 100 .375 gm In Sodium Chloride 0.9% 100 ml @ 25 mls/hr IVPB Q8H [facility] Rx#: [id number] cefTRIAXone 2 gm In 50 Sodium Chloride 0.9% 50 ml @ 100 mls/hr IVPB Q24HR [facility] Rx#:[id number] Intake, IV Titration 208.978 Amount Dexmedetomidine/0.9% NaCl 208.978 (Pmx) 400 mcg In Empty Bag 1 bag @ 0.2 MCG/KG/HR 5.985 mls/hr IV .[id number] [facility] Rx#:[id number] Tube Feeding 605 715 165 Other 90 90 30 Output: Urine 1960 3520 725 Other: Voiding Method Indwelling Catheter Indwelling Catheter Indwelling Catheter # Bowel Movements 1 ABP, PAP, CO, CI - Last Documented Arterial Blood Pressure 112/61 - Labs CBC & Chem 7: 07/13/24 06:39 07/13/24 06:39 Labs: Abnormal Lab Results - Last 24 Hours (Table) 07/13/24 07/13/24 Range/Units 06:39 06:39 WBC 11.3 H (3.8-10.6) k/uL Neutrophils # 8.6 H (1.3-7.7) k/uL Chloride 108 H (98-107) mmol/L Carbon Dioxide 21 L (22-30) mmol/L Creatinine 0.35 L (0.52-1.04) mg/dL Microbiology - Last 24 Hours (Table) 07/10/24 05:16 Blood Culture - Preliminary Blood 07/10/24 16:10 Gram Stain - Final Sputum Sputum Culture - Final Streptococcus pneumoniae 07/12/24 17:50 Gram Stain - Preliminary Sputum
--- NOTE | 2024-07-13 14:17 | P.PN ---
Subjective Progress Note Date: 07/13/24 SURGICAL PROGRESS NOTE CHIEF COMPLAINT: Intentional overdose HISTORY OF PRESENT ILLNESS: Patient is postop day #7 status post tracheostomy and PEG tube placement. Patient remains in the ICU. Patient has trach mask. Patient tolerated tube feeds. Tube feeds are at 56 mL/h. Afebrile. WBC 11.3 PHYSICAL EXAM: VITAL SIGNS: Reviewed. GENERAL: no acute distress. HEENT: Tracheostomy site dry and intact ABDOMEN: Soft. Obese. PEG tube site clean dry and intact ASSESSMENT: 1. Acute respiratory failure s/p intubation to protect airway after patient received significant sedation for agitation from Wellbutrin overdose and had an aspiration pneumonia 2. Severe protein calorie malnutrition 3. Suicide attempt with Wellbutrin overdose PLAN: -Continue tube feeds -Defer to respiratory for downsizing of trach once stable Physician Gasateria Attendant note has been reviewed by physician. Signing provider agrees with the documented findings, assessment, and plan of care. Objective - Vital Signs Vital signs: Vital Signs Temp 98.9 F 07/13/24 08:00 Pulse 101 H 07/13/24 12:00 Resp 27 H 07/13/24 12:00 BP 156/98 07/13/24 12:00 Pulse Ox 93 L 07/13/24 12:00 FiO2 35 07/13/24 09:00 Intake & Output 07/12/24 07/13/24 07/13/24 18:59 06:59 18:59 Intake Total 1153.978 865 255 Output Total 1960 3520 725 Balance -806.022 -2655 -470 Weight 111.3 kg 111.3 kg Intake: IV 250 60 60 0.9 @ KVO 90 Invasive Line 5 30 30 10 Invasive Line 8 30 30 Piperacillin-Tazobactam 3 100 .375 gm In Sodium Chloride 0.9% 100 ml @ 25 mls/hr IVPB Q8H [facility] Rx#: [id number] cefTRIAXone 2 gm In 50 Sodium Chloride 0.9% 50 ml @ 100 mls/hr IVPB Q24HR [facility] Rx#:[id number] Intake, IV Titration 208.978 Amount Dexmedetomidine/0.9% NaCl 208.978 (Pmx) 400 mcg In Empty Bag 1 bag @ 0.2 MCG/KG/HR 5.985 mls/hr IV .[id number] [facility] Rx#:[id number] Tube Feeding 605 715 165 Other 90 90 30 Output: Urine 1960 3520 725 Other: Voiding Method Indwelling Catheter Indwelling Catheter Indwelling Catheter # Bowel Movements 1 ABP, PAP, CO, CI - Last Documented Arterial Blood Pressure 112/61 - Labs CBC & Chem 7: 07/13/24 06:39 07/13/24 06:39 Labs: Abnormal Lab Results - Last 24 Hours (Table) 07/13/24 07/13/24 Range/Units 06:39 06:39 WBC 11.3 H (3.8-10.6) k/uL Neutrophils # 8.6 H (1.3-7.7) k/uL Chloride 108 H (98-107) mmol/L Carbon Dioxide 21 L (22-30) mmol/L Creatinine 0.35 L (0.52-1.04) mg/dL Microbiology - Last 24 Hours (Table) 07/10/24 05:16 Blood Culture - Preliminary Blood 07/10/24 16:10 Gram Stain - Final Sputum Sputum Culture - Final Streptococcus pneumoniae 07/12/24 17:50 Gram Stain - Preliminary Sputum
--- NOTE | 2024-07-13 15:34 | P.PN ---
Subjective Progress Note Date: 07/13/24 Principal diagnosis: Reason for follow-up is MSSA/aspiration pneumonia Patient is a 28-year-old female with a past medical history of dependent for reflux, anxiety and depression presenting to the hospital after the patient overdosed on 50-90 Wellbutrin tablets subsequent did have a agitation respiratory distress requiring revision admission to the ICU ID consulted because of concern for aspiration pneumonia.The patient is status post tracheostomy and PEG tube placement on 07/05/2024. On today's visit that is 07/13/2024,the patient remains to be afebrile, patient is on trach collar 8 L supplemental oxygen and denies any shortness of breath no chest pain or any worsening cough.Patient denies having any nausea or vomiting, no abdominal pain and no diarrhea has been reported. Patient white count is 11.3, creatinine 0.35 sputum with strep pneumo sensitive to ceftriaxone Objective - Vital Signs Vital signs: Vital Signs Temp 98.9 F 07/13/24 08:00 Pulse 102 H 07/13/24 14:00 Resp 24 07/13/24 14:00 BP 150/115 07/13/24 14:00 Pulse Ox 91 L 07/13/24 14:00 FiO2 35 07/13/24 09:00 Intake & Output 07/12/24 07/13/24 07/13/24 18:59 06:59 18:59 Intake Total 1153.978 865 255 Output Total 1960 3520 725 Balance -806.022 -2655 -470 Weight 111.3 kg 111.3 kg Intake: IV 250 60 60 0.9 @ KVO 90 Invasive Line 5 30 30 10 Invasive Line 8 30 30 Piperacillin-Tazobactam 3 100 .375 gm In Sodium Chloride 0.9% 100 ml @ 25 mls/hr IVPB Q8H [facility] Rx#: [id number] cefTRIAXone 2 gm In 50 Sodium Chloride 0.9% 50 ml @ 100 mls/hr IVPB Q24HR [facility] Rx#:[id number] Intake, IV Titration 208.978 Amount Dexmedetomidine/0.9% NaCl 208.978 (Pmx) 400 mcg In Empty Bag 1 bag @ 0.2 MCG/KG/HR 5.985 mls/hr IV .[id number] [facility] Rx#:[id number] Tube Feeding 605 715 165 Other 90 90 30 Output: Urine 1960 3520 725 Other: Voiding Method Indwelling Catheter Indwelling Catheter Indwelling Catheter # Bowel Movements 1 ABP, PAP, CO, CI - Last Documented Arterial Blood Pressure 112/61 - Exam GENERAL DESCRIPTION: Middle-age female up in the chair in no distress RESPIRATORY SYSTEM: Unlabored breathing , decreased breath sounds at bases HEART: S1 S2 regular rate and rhythm , ABDOMEN: Soft , no tenderness EXTREMITIES: No edema feet - Labs CBC & Chem 7: 07/13/24 06:39 07/13/24 06:39 Labs: Abnormal Lab Results - Last 24 Hours (Table) 07/13/24 07/13/24 Range/Units 06:39 06:39 WBC 11.3 H (3.8-10.6) k/uL Neutrophils # 8.6 H (1.3-7.7) k/uL Chloride 108 H (98-107) mmol/L Carbon Dioxide 21 L (22-30) mmol/L Creatinine 0.35 L (0.52-1.04) mg/dL Microbiology - Last 24 Hours (Table) 07/10/24 05:16 Blood Culture - Preliminary Blood 07/10/24 16:10 Gram Stain - Final Sputum Sputum Culture - Final Streptococcus pneumoniae 07/12/24 17:50 Gram Stain - Preliminary Sputum Assessment and Plan (1) Sepsis Current Visit: Yes Status: Acute Code(s): A41.9 - SEPSIS, UNSPECIFIED ORGANISM SNOMED Code(s): 15127692 (2) Pneumonia Current Visit: Yes Status: Acute Code(s): J18.9 - PNEUMONIA, UNSPECIFIED ORGANISM SNOMED Code(s): 178148843 (3) MSSA (methicillin susceptible Staphylococcus aureus) infection Current Visit: Yes Status: Acute Code(s): A49.01 - METHICILLIN SUSCEP STAPH INFECTION, UNSP SITE SNOMED Code(s): 038370071 Plan: 1patient presenting the hospital with drug overdose with subsequent agitation respiratory distress requiring intubation concerning for possible aspiration pneumonia sputum is now growing MSSA in this patient who did have features of sepsis with fever elevated white count and hypotension requiring low-dose pr essor support on initial evaluation. 2-patient did have resolution of her fever the patient white count normalized blood culture have been negative so far, sputum grew MSSA for the patient completed her Unasyn therapy 3patient vaginal area candidiasis for which the patient has completed course of Eraxis 4groin area candidiasis treated with with nystatin powder twice a day. 5-the patient continue fever and sputum is now growing Streptococcus pneumoniae for the patient is currently being treated with Rocephin to continue while inpatient will be able to transition to oral on discharge Dictation was produced using AVST dictation software. please excuse any grammatical, word or spelling errors. Time with Patient: Less than 30
[2024-07-13 17:40] LABS: Glucose,Whole Blood 100 mg/dL (70-110)
--- NOTE | 2024-07-13 18:27 | P.PN ---
Subjective Progress Note Date: 07/13/24 On 07/10/2024, the patient is being seen for a follow-up. The patient is awake and alert and communicating. Overnight, she became slightly more restless and the patient was started on low-dose propofol which is running at 50 mcg/kg/min. This morning, her tracheostomy site is intact. She has a #[address] She is on assist-control mode at rate of 60, tidal volume of 500, FiO2 of 50% with a PEEP of 10. Blood gas showed a pH of 7.46 with a pCO2 of 38 and pO2 113. The patient has a PEG tube for enteral feeding and nutritional support. He is on vital HP at rate of 40 cc an hour. She is having loose liquidy bowel movements. White cell count was elevated at 17.5 with a hemoglobin of 13. Based on that, the patient was started empiric antibiotic coverage with IV Zosyn. Chest x-ray from today shows no significant airspace disease or consolidation. There is some persistent left more than right basilar infiltrate/atelectasis possibly some small pleural effusions. Otherwise, her sodium is at 142, potassium level 3.7, bicarbonate 27, BUN is 15 with a creatinine of 0.5. Repeat cultures are still pending. Blood cultures are negative. The patient has a femoral triple-lumen catheter in place. She is on Prozac. Her psychiatric medication needs to be reevaluated by the psychiatrist. She was taking a combination of Pristiq, Wellbutrin and Lamictal on an outpatient basis. 07/11/2024, the patient is arousable. She was taken off the propofol and the patient was started on Precedex to control her restlessness and agitation. The patient has done better with Precedex which is currently running at 0.5 mcg/kg/h. She is calm and comfortable and arousable. This morning, she still on the mechanical ventilator. She is on assist-control at rate of 16, tidal volume of 500, FiO2 50% with a PEEP of 5. Blood gas showed a pH of 7.46 with a pCO2 of 39 and pO2 of 78. The patient has excellent weaning parameters. I think her failure to wean is essentially related to increased anxiety and agitation. Based on that, I did contact this patient on the mechanical ventilator and put her on trach collar and she was very comfortable on trach collar which is currently at 40%. Her oxygenation is stable. She was having some respiratory secretions and she has an adequate cough. Scopolamine patch was also added. Meanwhile, the follow-up chest x-ray that was done this morning shows some infiltrate in the lung bases/atelectasis left more than right. Tracheostomy is up in the trachea. The white cell count is at 4.4 with a hemoglobin of 10.8 and a platelet count of 182. Sodium is at 140, potassium is at 3.3, BUN 23 and a creatinine of 0.6. The patient was seen by psychiatry. The patient was started on Cymbalta 30 mg p.o. daily and the patient was also started on Lamictal 25 mg p.o. daily. She is profoundly weak yet awake and alert and communicating. No new complaints otherwise for now. On 07/12/2024, the patient remains on Precedex which is running at 0.6 mcg/kg/h. This will be gradually weaned off. Seems to be comfortable on Precedex. Nevertheless, I am concerned that the patient is going to become more anxious and restless while being off Precedex. Meanwhile, Cymbalta dose was increased up to 60 mg p.o. daily. The patient is also on Ativan as needed and Lamictal. In terms of respiratory status, the patient is currently on a trach collar. Sp utum sample was positive for Streptococcus pneumonia and the patient remains on IV Zosyn. Noted the patient's white cell count has been improving. Respiratory secretions are still present and the patient was given a scopolamine patch. No significant respiratory distress. She has an adequate cough. She has profound weakness in all 4 extremities. WBC count is at 10.4, hemoglobin of [address] atelet count of 144. BUN is 19 with a creatinine of 0.5 and a sodium level is at 138. The platelet counts have been gradually dropping. Meanwhile, the patient continues to be on enteral feeding for nutritional support and she is on vital HP at rate of 55 cc an hour. No other significant events overnight. On 07/13/2024, the patient is being seen for a follow-up. The patient is awake and alert and communicating and the patient is currently off Precedex. She is on a 35% trach collar. No significant shortness of breath. Respiratory changes are less. Sputum sample was positive for strep pneumo and a follow-up chest x- ray from today shows atelectatic change in lung bases persistent pulm vascular congestion. The patient denies having any significant respiratory distress. She has a solid tracheostomy tube in place. She continues to receive enteral feeding for nutritional support and the patient is currently on vital HP at rate of 35 cc an hour. The WBC count is 11.3, hemoglobin 12.7 and a platelet count of 190. BUN is 50 mg and 0.35 and sodium levels at 139 and a potassium level is at 4.7. No other significant events overnight. Objective - Vital Signs Vital signs: Vital Signs Temp 98.9 F 07/13/24 08:00 Pulse 105 H 07/13/24 09:00 Resp 30 H 07/13/24 09:00 BP 142/95 07/13/24 09:00 Pulse Ox 95 07/13/24 09:00 FiO2 35 07/13/24 09:00 Intake & Output 07/12/24 07/13/24 07/13/24 18:59 06:59 18:59 Intake Total 1153.978 865 200 Output Total 1960 3520 475 Balance -806.022 -2655 -275 Weight 111.3 kg Intake: IV 250 60 60 0.9 @ KVO 90 Invasive Line 5 30 30 10 Invasive Line 8 30 30 Piperacillin-Tazobactam 3 100 .375 gm In Sodium Chloride 0.9% 100 ml @ 25 mls/hr IVPB Q8H [facility] Rx#: [id number] cefTRIAXone 2 gm In 50 Sodium Chloride 0.9% 50 ml @ 100 mls/hr IVPB Q24HR [facility] Rx#:[id number] Intake, IV Titration 208.978 Amount Dexmedetomidine/0.9% NaCl 208.978 (Pmx) 400 mcg In Empty Bag 1 bag @ 0.2 MCG/KG/HR 5.985 mls/hr IV .[id number] [facility] Rx#:[id number] Tube Feeding 605 715 110 Other 90 90 30 Output: Urine 1959 3520 475 Other: Voiding Method Indwelling Catheter Indwelling Catheter Indwelling Catheter # Bowel Movements 1 ABP, PAP, CO, CI - Last Documented Arterial Blood Pressure 112/61 - Exam GENERAL EXAM: Alert, 28-year-old female, patient is currently on Precedex. The patient is on trach collar at 35% FiO2. HEAD: Normocephalic. EYES: Normal reaction of pupils, equal size. NOSE: Clear with pink turbinates. THROAT: No erythema or exudates. NECK: Tracheostomy tube secured in place. No masses, no JVD. Patient is #6 Shiley tracheostomy tube. The patient has a large scar over the anterior neck area. CHEST: No chest wall deformity. LUNGS: Equal air entry with few scattered rhonchi. CVS: S1 and S2 normal with no audible murmur, regular rhythm. ABDOMEN: PEG tube secured in place. No hepatosplenomegaly, normal bowel sounds, no guarding or rigidity. SPINE: No scoliosis or deformity SKIN: No rashes CENTRAL NERVOUS SYSTEM: No focal deficits, tone is normal in all 4 extremities. EXTREMITIES: There is no peripheral edema. No clubbing, no cyanosis. Peripheral pulses are intact. - Labs CBC & Chem 7: 07/13/24 06:39 07/13/24 06:39 Labs: Abnormal Lab Results - Last 24 Hours (Table) 07/13/24 07/13/24 Range/Units 06:39 06:39 WBC 11.3 H (3.8-10.6) k/uL Neutrophils # 8.6 H (1.3-7.7) k/uL Chloride 108 H (98-107) mmol/L Carbon Dioxide 21 L (22-30) mmol/L Creatinine 0.35 L (0.52-1.04) mg/dL Microbiology - Last 24 Hours (Table) 07/12/24 17:50 Gram Stain - Preliminary Sputum 07/10/24 05:16 Blood Culture - Preliminary Blood 07/10/24 16:10 Gram Stain - Preliminary Sputum Sputum Culture - Preliminary Streptococcus pneumoniae Assessment and Plan Plan: Acute respiratory failure, secondary to Wellbutrin overdose which required significant amount of sedation and patient developed respiratory failure requiring intubation and mechanical ventilation and diffuse bilateral pneumonia. The patient had prolonged respiratory failure, requiring tracheostomy tube i nsertion. Follow-up chest x-ray from today shows some limited atelectatic changes in lung base bilaterally. Stable oxygenation. Sputum sample is positive for strep pneumo and the patient remains on IV Zosyn and the patient remains off the mechanical ventilator on 35% trach collar Bibasilar pulmonary infiltrates with sputum cultures positive for Streptococcus pneumonia. White cell count is improving and the patient remains on IV Zosyn. Acute hypoxic respiratory failure secondary to pneumonia which has developed post intubation, likely of an aspiration type, improving, the patient is curr ently on a 35% trach collar Wellbutrin overdose Borderline personality disorder Suicidal attempt Aspiration pneumonia Sepsis secondary to aspiration pneumonia Electrolytes imbalance History of generalized anxiety disorder MSSA pneumonia Plan: Keep the patient on 35 % trach collar and monitor respiratory status very closely. Scopolamine patch Pulmonary toileting and suctioning Precedex will be gradually weaned off Continue Lamictal and Cymbalta, dose has been modified to 60 mg p.o. daily Continue IV Zosyn Continue tracheostomy care Continue PEG tube feeding for nutritional support Diarrhea has subsided Heparin subcu for DVT prophylaxis Full physical therapy Case management working on obtaining insurance and eventual rehabilitation facility We will continue to follow and make further recommendations based on her clinical status Care evaluation was done and 31 minutes. Time with Patient: Greater than 30
[2024-07-14 00:01] LABS: Glucose,Whole Blood 90 mg/dL (70-110)
[2024-07-14 01:15] LABS: Glucose,Whole Blood 102 mg/dL (70-110)
[2024-07-14 06:17] LABS: Glucose,Whole Blood 111 mg/dL (70-110)
[2024-07-14 07:28] LABS: Basophils % (A) 0 %; Eosinophils % (A) 0 %; HCT 43.6 % (34.0-46.0); HGB 13.6 gm/dL (11.4-16.0); Hypochromasia Slight; Lymphocytes # (A) 1.7 k/uL (1.0-4.8); Lymphocytes % (A) 18 %; MCH 30.6 pg (25.0-35.0); MCHC 31.1 g/dL (31.0-37.0); MCV 98.2 fL (80.0-100.0); Macrocytosis Slight; Mean Platelet Volume 8.4; Monocytes # (A) 0.6 k/uL (0-1.0); Monocytes % (A) 6 %; Neutrophils # (A) 6.8 k/uL (1.3-7.7); Neutrophils % (A) 73 %; Platelet Count 219 k/uL (150-450); RBC 4.44 m/uL (3.80-5.40); RDW 15.8 % (11.5-15.5); WBC 9.3 k/uL (3.8-10.6)
--- NOTE | 2024-07-14 07:30 | XR ---
EXAMINATION TYPE: XR chest 1V portable DATE OF EXAM: 07/14/2024 CLINICAL INDICATION: Female, 28 years old with history of folllow up pneumonia, progress study. TECHNIQUE: Single AP portable upright view of the chest is obtained. COMPARISON: Chest x-ray from one day earlier FINDINGS: Stable tracheostomy tube. Persistent low lung volumes. More prominent elevated right hemidiaphragm. Persistent bibasilar increa sed opacities. Cardiac silhouette size is stable and mildly enlarged. Osseous structures are intact. IMPRESSION: Persistent bibasilar acute infiltrates and/or atelectasis. More prominent elevated right hemidiaphragm suggests worse right basilar atelectasis. [facility], , 07/14/2024 7:28 AM
[2024-07-14 07:43] LABS: African American GFR (CKD) >90 (>60 ml/min/1.73 sqM); Anion Gap 12 mmol/L; Blood Urea Nitrogen 16 mg/dL (7-17); Calcium 9.6 mg/dL (8.4-10.2); Carbon Dioxide 22 mmol/L (22-30); Chloride 106 mmol/L (98-107); Glucose 107 mg/dL (74-99); Non-African American GFR(CKD) >90 (>60 ml/min/1.73 sqM); Potassium 3.7 mmol/L (3.5-5.1); Sodium 140 mmol/L (137-145)
[2024-07-14 11:28] LABS: Glucose,Whole Blood 113 mg/dL (70-110)
--- NOTE | 2024-07-14 13:12 | P.PN ---
Subjective Progress Note Date: 07/14/24 Hospital Course: 28 year old F with PMH of anxiety and borderline personality disorder on Wellb utrin presented after intentional ingestion of Wellbutrin. Patient is psychotic at the time my evaluation does not provide reliable history. According to ER provider signout as well as chart review, patient ingested somewhere between 50- 90 extended release Wellbutrin tablets and an overdose attempt. Patient is clearly agitated, tachycardic at the time my evaluation. Upon arrival patient was afebrile, 148/96, heart rate 83. Patient subsequently received activated charcoal, was started on IV fluids, and given a total of 7 mg of Ativan while on continuous telemetry, with heart rates increasing to the 130s to 140s. The ER provider did contact poison control control who recommended medical monitoring until patient is stable for transfer to the mental health unit. Review of lab work shows normal CBC, CO2 of 20, ALT of 91, negative troponin, normal lactic acid, negative salicylate level, alcohol level, Tylenol level. Initial EKG shows normal sinus rhythm with a short KS interval and right axis deviation. Patient was admitted to the cardiac selective floor with telemetry, with low threshold for ICU escalation. Received multiple doses of Ativan + Librium, remained agitated, intubated on 06/27. Concerns for aspiration on 06/28, started on Zosyn with Vancomycin added for staph sputum Cx. IV consulted, switched to Unasyn on 06/29. Eraxis started for Vaginal candidiasis. Completed 4 days of Eraxis and 10 days of Unasyn on 07/08. Started on Zosyn for leukocytosis on 07/10. Concerns for seizures, started on Depakote, Neurology consulted. CT head showed no acute hemorrhage, areas of low-attenuation in the bilateral cerebellar hemisphere slightly more prominent on the right, per neurology, could be artifact. EEG done in was abnormal, showed background slowing suggestive of mild encephalopathy likely due to toxic metabolic derangement as well as medication use, no epileptiform discharges, seizures. Poison control recommended phenobarbital 570 mg IV x1 on 06/29. Continued on Valproic acid 250 mg IV BID. Difficulty with extubation, CTA chest 07/02 showed no PE, multifocal PNA, c ardiomegaly with small pleural effusions. Underwent successful Trach/PEG on 07/05. Started on Zosyn 3.75g IV TID for worsening leukocytosis on 07/09 07/11, patient was put on trach mask of 40%, afebrile since 07/10 4 AM. 07/12 on trach mask, tachypneic and anxious at times. Sputum cultures from 07/10 for s trep pneumonia patient was switched to ceftriaxone on 07/12.repeat CT head on 07/11/[address] cervical spine: No acute intracranial process. No evidence of cervical spine fracture. Mild multilevel degenerative disc disease. 07/13: Patient is tolerating trach mask well, short of breath at times, complains of diarrhea, no abdominal pain. Max temp in the past 24 hours 99.8. Precedex on hold, psychiatry increased Cymbalta to 60 mg daily, recommended to continue Ativan as needed for agitation 07/14 was seen on 3 S., patient is very emotional and tearful, stated that she would like to go home, with had an extensive discussion regarding her current medical state, need for treatment continuation, rehab placement, she demonstrated understanding. Patient did have an unwitnessed fall without head trauma or loss of consciousness. She is afebrile, hemodynamically stable on trach collar Difficulty with placement.Patient has no insurance. Public guardian in process. Case management on board. Pertinent Imaging: Chest x-ray interpreted independently with persistent bilateral lower lung infiltrates left greater than right Subjective: Denies shortness of breath, abdominal pain, still has episodes of diarrhea Pertinent positives and negatives as discussed above, a complete review of syste ms was performed and all other systems are negative. Vitals Signs Reviewed. General: [nontoxic], [no distress], [appears at stated age] Derm: [warm], [dry] Head: [atraumatic], [normocephalic], [symmetric], trach Eyes: [EOMI], [no lid lag], [anicteric sclera] Mouth: [no lip lesion], [mucus membranes moist] Cardiovascular: [S1S2 reg], [no murmur] Lungs: Bilateral rhonchi, [no accessory muscle use], on trach collar Abdominal: [soft], [ nontender to palpation], [no guarding], [no appreciable org anomegaly] PEG tube in place Ext: [no gross muscle atrophy], [no edema], [no contractures] Neuro: [ CN II-XI grossly intact], [no focal neuro deficits], Psych: [Alert], [oriented], [appropriate affect] Data Reviewed Today: Pertinent Labs: WBC, hemoglobin and platelet count normal, sodium, potassium, bicarb, creatinine WNL, glucose is controlled Assessment and Plan: Acute respiratory failure s/p intubation for airway protection 06/27 Sepsis likely secondary to aspiration pneumonia with S. aureus Sputum Cx Strep pneumo ventilator associated pneumonia Status post PEG/Trach 07/05 -CTA chest negative for PE but does show multifocal PNA with cardiomegaly and small pleural effusions. . -Completed 10 days of Unasyn on 07/08. Started on Zosyn 3.75g IV TID for worsening leukocytosis on 07/09. Repeat UA, BCx - NGTD -Switch to ceftriaxone for strep pneumo and sputum on 07/12 . Tylenol 650 mg PO Q6H PRN fever. Elevated HOB. Aspiration precautions. Vent on standby as of 07/11 AM. -Precedex on hold, psychiatry increased Cymbalta to 60 mg daily, recommended to continue Ativan as needed for agitation Acute metabolic encephalopathy due to below: CT head 06/29 no acute process. B12 1207. Folate 707. EEG shows encephalopathy with no seizure activity, Valproic acid discontinued by Neurology on 07/09. Seizure precautions. Neurology on board. repeat CT head on 07/11/[address] cervical spine: No acute intracranial process. No evidence of cervical spine fracture. Mild multilevel degenerative disc disease. Intentional overdose with Wellbutrin Iron def anemia: Iron level of 9. Defer IV iron while treating active infection. Monitor Hg. Transfuse if Hg < 7. Constipation, resolved: now has diarrhea, stopped Miralax 17g PO QHS. Lactulose 20g PO QD PRN. Anxiety and Borderline personality disorder: Pyschiatry on board. Resolved: Metabolic acidosis, Hypokalemia, Hypomagnesemia DVT ppx: Heparin Code status: Full code Anticipated discharge place: TBD Anticipated discharge time: TBD Objective - Vital Signs Vital signs: Vital Signs Temp 98.8 F 07/14/24 12:36 Pulse 103 H 07/14/24 12:36 Resp 16 07/14/24 12:36 BP 134/91 07/14/24 12:36 Pulse Ox 97 07/14/24 12:36 FiO2 40 07/14/24 12:02 Intake & Output 07/13/24 07/14/24 07/14/24 18:59 06:59 18:59 Intake Total 255 322 Output Total 885 1150 650 Balance -911 -820 -650 Weight 111.3 kg 111.5 kg Intake: IV 60 Invasive Line 5 10 cefTRIAXone 2 gm In 50 Sodium Chloride 0.9% 50 ml @ 100 mls/hr IVPB Q24HR [facility] Rx#:[id number] Oral 0 Tube Feeding 165 262 Other 30 60 Output: Urine 885 1150 650 Other: Voiding Method Indwelling Catheter Indwelling Catheter # Bowel Movements 1 ABP, PAP, CO, CI - Last Documented Arterial Blood Pressure 112/61 - Labs CBC & Chem 7: 07/14/24 07:08 07/14/24 07:08 Labs: Abnormal Lab Results - Last 24 Hours (Table) 07/14/24 07/14/24 07/14/24 Range/Units 06:16 07:08 07:08 RDW 15.8 H (11.5-15.5) % Creatinine 0.43 L (0.52-1.04) mg/dL Glucose 107 H (74-99) mg/dL POC Glucose (mg/dL) 111 H (70-110) mg/dL 07/14/24 Range/Units 11:26 RDW (11.5-15.5) % Creatinine (0.52-1.04) mg/dL Glucose (74-99) mg/dL POC Glucose (mg/dL) 113 H (70-110) mg/dL Microbiology - Last 24 Hours (Table) 07/10/24 05:16 Blood Culture - Preliminary Blood 07/10/24 16:10 Gram Stain - Final Sputum Sputum Culture - Final Streptococcus pneumoniae
--- NOTE | 2024-07-14 15:06 | P.PN ---
Subjective Progress Note Date: 07/14/24 SURGICAL PROGRESS NOTE CHIEF COMPLAINT: Intentional overdose HISTORY OF PRESENT ILLNESS: Patient is postop day #8 status post tracheostomy and PEG tube placement. Patient was transferred out of the ICU to cardiac floor. Patient has trach mask. Patient tolerated tube feeds. Tube feeds are at 55 mL/h. PHYSICAL EXAM: VITAL SIGNS: Reviewed. GENERAL: no acute distress. HEENT: Tracheostomy site dry and intact ABDOMEN: Soft. Obese. PEG tube site clean dry and intact ASSESSMENT: 1. Acute respiratory failure s/p intubation to protect airway after patient received significant sedation for agitation from Wellbutrin overdose and had an aspiration pneumonia 2. Severe protein calorie malnutrition 3. Suicide attempt with Wellbutrin overdose PLAN: -Continue tube feeds -Continue supportive care Physician Voltage Regulator Assembler note has been reviewed by physician. Signing provider agrees with the documented findings, assessment, and plan of care. Attestation Patient seen and examined at bedside. Appears to be doing well after recent suicide attempt. Continue tube feeds. Continue supportive care. Continue tracheostomy management with respiratory service. Maureen Swanson DO Objective - Vital Signs Vital signs: Vital Signs Temp 98.8 F 07/14/24 12:36 Pulse 103 H 07/14/24 12:36 Resp 16 07/14/24 12:36 BP 134/91 07/14/24 12:36 Pulse Ox 97 07/14/24 12:36 FiO2 40 07/14/24 12:02 Intake & Output 07/13/24 07/14/24 07/14/24 18:59 06:59 18:59 Intake Total 255 322 Output Total 885 1150 650 Balance -614 -826 -650 Weight 111.3 kg 111.5 kg Intake: IV 60 Invasive Line 5 10 cefTRIAXone 2 gm In 50 Sodium Chloride 0.9% 50 ml @ 100 mls/hr IVPB Q24HR [facility] Rx#:[id number] Oral 0 Tube Feeding 165 262 Other 30 60 Output: Urine 885 1150 650 Other: Voiding Method Indwelling Catheter Indwelling Catheter # Bowel Movements 1 ABP, PAP, CO, CI - Last Documented Arterial Blood Pressure 112/61 - Labs CBC & Chem 7: 07/14/24 07:08 07/14/24 07:08 Labs: Abnormal Lab Results - Last 24 Hours (Table) 07/14/24 07/14/24 07/14/24 Range/Units 06:16 07:08 07:08 RDW 15.8 H (11.5-15.5) % Creatinine 0.43 L (0.52-1.04) mg/dL Glucose 107 H (74-99) mg/dL POC Glucose (mg/dL) 111 H (70-110) mg/dL 07/14/24 Range/Units 11:26 RDW (11.5-15.5) % Creatinine (0.52-1.04) mg/dL Glucose (74-99) mg/dL POC Glucose (mg/dL) 113 H (70-110) mg/dL Microbiology - Last 24 Hours (Table) 07/12/24 17:50 Gram Stain - Preliminary Sputum Sputum Culture - Preliminary Presumptive Staph aureus 07/10/24 05:16 Blood Culture - Preliminary Blood
--- NOTE | 2024-07-14 15:52 | P.PN ---
Subjective Progress Note Date: 07/14/24 Principal diagnosis: Reason for follow-up is MSSA/aspiration pneumonia Patient is a 28-year-old female with a past medical history of dependent for reflux, anxiety and depression presenting to the hospital after the patient overdosed on 50-90 Wellbutrin tablets subsequent did have a agitation respiratory distress requiring revision admission to the ICU ID consulted because of concern for aspiration pneumonia.The patient is status post tracheostomy and PEG tube placement on 07/05/2024. On today's visit that is 07/14/2024, the patient continues to be afebrile, the p atient is on 10 L trach collar and is breathing comfortably no chest pain shortness of breath. Cough no abdominal pain no diarrhea. Patient white count is 9.3, creatinine 0.43 Objective - Vital Signs Vital signs: Vital Signs Temp 98.8 F 07/14/24 12:36 Pulse 103 H 07/14/24 12:36 Resp 16 07/14/24 12:36 BP 134/91 07/14/24 12:36 Pulse Ox 97 07/14/24 12:36 FiO2 40 07/14/24 12:02 Intake & Output 07/13/24 07/14/24 07/14/24 18:59 06:59 18:59 Intake Total 255 322 Output Total 885 1150 650 Balance -570 -82 -650 Weight 111.3 kg 111.5 kg Intake: IV 60 Invasive Line 5 10 cefTRIAXone 2 gm In 50 Sodium Chloride 0.9% 50 ml @ 100 mls/hr IVPB Q24HR [facility] Rx#:[id number] Oral 0 Tube Feeding 165 262 Other 30 60 Output: Urine 885 1150 650 Other: Voiding Method Indwelling Catheter Indwelling Catheter # Bowel Movements 1 ABP, PAP, CO, CI - Last Documented Arterial Blood Pressure 112/61 - Exam GENERAL DESCRIPTION: Middle-age female up in the chair in no distress RESPIRATORY SYSTEM: Unlabored breathing , decreased breath sounds at bases HEART: S1 S2 regular rate and rhythm , ABDOMEN: Soft , no tenderness EXTREMITIES: No edema feet - Labs CBC & Chem 7: 07/14/24 07:08 07/14/24 07:08 Labs: Abnormal Lab Results - Last 24 Hours (Table) 07/14/24 07/14/24 07/14/24 Range/Units 06:16 07:08 07:08 RDW 15.8 H (11.5-15.5) % Creatinine 0.43 L (0.52-1.04) mg/dL Glucose 107 H (74-99) mg/dL POC Glucose (mg/dL) 111 H (70-110) mg/dL 07/14/24 Range/Units 11:26 RDW (11.5-15.5) % Creatinine (0.52-1.04) mg/dL Glucose (74-99) mg/dL POC Glucose (mg/dL) 113 H (70-110) mg/dL Microbiology - Last 24 Hours (Table) 07/12/24 17:50 Gram Stain - Preliminary Sputum Sputum Culture - Preliminary Presumptive Staph aureus 07/10/24 05:16 Blood Culture - Preliminary Blood Assessment and Plan (1) Sepsis Current Visit: Yes Status: Acute Code(s): A41.9 - SEPSIS, UNSPECIFIED ORGANISM SNOMED Code(s): 79730002 (2) Pneumonia Current Visit: Yes Status: Acute Code(s): J18.9 - PNEUMONIA, UNSPECIFIED ORGANISM SNOMED Code(s): 408349565 (3) MSSA (methicillin susceptible Staphylococcus aureus) infection Current Visit: Yes Status: Acute Code(s): A49.01 - METHICILLIN SUSCEP STAPH INFECTION, UNSP SITE SNOMED Code(s): 798761852 Plan: 1patient presenting the hospital with drug overdose with subsequent agitation respiratory distress requiring intubation concerning for possible aspiration pneumonia sputum is now growing MSSA in this patient who did have features of sepsis with fever elevated white count and hypotension requiring low-dose pressor support on initial evaluation. 2-patient did have resolution of her fever the patient white count normalized blood culture have been negative so far, sputum grew MSSA for the patient completed her Unasyn therapy 3patient vaginal area candidiasis for which the patient has completed course of Eraxis 4groin area candidiasis treated with with nystatin powder twice a day. 5-the patient did have resolution of her fever white normalized, sputum Streptococcus pneumoniae for which the patient is currently being treated with Rocephin to continue while inpatient and monitor clinical course closely Dictation was produced using [employer] dictation software. please excuse any grammatical, word or spelling errors. Time with Patient: Less than 30
--- NOTE | 2024-07-14 17:16 | P.PN ---
Subjective Progress Note Date: 07/14/24 On 07/10/2024, the patient is being seen for a follow-up. The patient is awake and alert and communicating. Overnight, she became slightly more restless and the patient was started on low-dose propofol which is running at 50 mcg/kg/min. This morning, her tracheostomy site is intact. She has a #[address] She is on assist-control mode at rate of 60, tidal volume of 500, FiO2 of 50% with a PEEP of 10. Blood gas showed a pH of 7.46 with a pCO2 of 38 and pO2 113. The patient has a PEG tube for enteral feeding and nutritional support. He is on vital HP at rate of 40 cc an hour. She is having loose liquidy bowel movements. White cell count was elevated at 17.5 with a hemoglobin of 13. Based on that, the patient was started empiric antibiotic coverage with IV Zosyn. Chest x-ray from today shows no significant airspace disease or consolidation. There is some persistent left more than right basilar infiltrate/atelectasis possibly some small pleural effusions. Otherwise, her sodium is at 142, potassium level 3.7, bicarbonate 27, BUN is 15 with a creatinine of 0.5. Repeat cultures are still pending. Blood cultures are negative. The patient has a femoral triple-lumen catheter in place. She is on Prozac. Her psychiatric medication needs to be reevaluated by the psychiatrist. She was taking a combination of Pristiq, Wellbutrin and Lamictal on an outpatient basis. 07/11/2024, the patient is arousable. She was taken off the propofol and the patient was started on Precedex to control her restlessness and agitation. The patient has done better with Precedex which is currently running at 0.5 mcg/kg/h. She is calm and comfortable and arousable. This morning, she still on the mechanical ventilator. She is on assist-control at rate of 16, tidal volume of 500, FiO2 50% with a PEEP of 5. Blood gas showed a pH of 7.46 with a pCO2 of 39 and pO2 of 78. The patient has excellent weaning parameters. I think her failure to wean is essentially related to increased anxiety and agitation. Based on that, I did contact this patient on the mechanical ventilator and put her on trach collar and she was very comfortable on trach collar which is currently at 40%. Her oxygenation is stable. She was having some respiratory secretions and she has an adequate cough. Scopolamine patch was also added. Meanwhile, the follow-up chest x-ray that was done this morning shows some infiltrate in the lung bases/atelectasis left more than right. Tracheostomy is up in the trachea. The white cell count is at 4.4 with a hemoglobin of 10.8 and a platelet count of 182. Sodium is at 140, potassium is at 3.3, BUN 23 and a creatinine of 0.6. The patient was seen by psychiatry. The patient was started on Cymbalta 30 mg p.o. daily and the patient was also started on Lamictal 25 mg p.o. daily. She is profoundly weak yet awake and alert and communicating. No new complaints otherwise for now. On 07/12/2024, the patient remains on Precedex which is running at 0.6 mcg/kg/h. This will be gradually weaned off. Seems to be comfortable on Precedex. Nevertheless, I am concerned that the patient is going to become more anxious and restless while being off Precedex. Meanwhile, Cymbalta dose was increased up to 60 mg p.o. daily. The patient is also on Ativan as needed and Lamictal. In terms of respiratory status, the patient is currently on a trach collar. Sp utum sample was positive for Streptococcus pneumonia and the patient remains on IV Zosyn. Noted the patient's white cell count has been improving. Respiratory secretions are still present and the patient was given a scopolamine patch. No significant respiratory distress. She has an adequate cough. She has profound weakness in all 4 extremities. WBC count is at 10.4, hemoglobin of [address] atelet count of 144. BUN is 19 with a creatinine of 0.5 and a sodium level is at 138. The platelet counts have been gradually dropping. Meanwhile, the patient continues to be on enteral feeding for nutritional support and she is on vital HP at rate of 55 cc an hour. No other significant events overnight. On 07/13/2024, the patient is being seen for a follow-up. The patient is awake and alert and communicating and the patient is currently off Precedex. She is on a 35% trach collar. No significant shortness of breath. Respiratory changes are less. Sputum sample was positive for strep pneumo and a follow-up chest x- ray from today shows atelectatic change in lung bases persistent pulm vascular congestion. The patient denies having any significant respiratory distress. She has a solid tracheostomy tube in place. She continues to receive enteral feeding for nutritional support and the patient is currently on vital HP at rate of 35 cc an hour. The WBC count is 11.3, hemoglobin 12.7 and a platelet count of 190. BUN is 50 mg and 0.35 and sodium levels at 139 and a potassium level is at 4.7. No other significant events overnight. On 07/14/2024, the patient is emotional and she is having crying episodes. As she was trying to reach to her push button, the patient had a fall without any major damages. No head trauma. No body trauma. She was transferred out of the intensive care unit yesterday. The patient has a tracheostomy and the patient is currently on 40% trach collar. Respiratory secretions are improving. Chest x-ray showing atelectatic changes in the right lung base. The white cell count of 9.3 with a heme of 13.6. The sputum sample was positive for strep and the patient is currently on IV Rocephin. Sodium is at 140, BUN 16 with a creatinine of 0.4. No other significant events otherwise for now. The patient was transferred out of the intensive care unit yesterday. Objective - Vital Signs Vital signs: Vital Signs Temp 98.8 F 07/14/24 12:36 Pulse 103 H 07/14/24 12:36 Resp 16 07/14/24 12:36 BP 134/91 07/14/24 12:36 Pulse Ox 97 07/14/24 12:36 FiO2 40 07/14/24 12:02 Intake & Output 07/13/24 07/14/24 07/14/24 18:59 06:59 18:59 Intake Total 255 322 Output Total 885 1150 650 Balance -630 -828 -650 Weight 111.3 kg 111.5 kg Intake: IV 60 Invasive Line 5 10 cefTRIAXone 2 gm In 50 Sodium Chloride 0.9% 50 ml @ 100 mls/hr IVPB Q24HR [facility] Rx#:[id number] Oral 0 Tube Feeding 165 262 Other 30 60 Output: Urine 885 1150 650 Other: Voiding Method Indwelling Catheter Indwelling Catheter # Bowel Movements 1 ABP, PAP, CO, CI - Last Documented Arterial Blood Pressure 112/61 - Exam GENERAL EXAM: Alert, 28-year-old female, patient is currently on Precedex. The patient is on trach collar at 35% FiO2. HEAD: Normocephalic. EYES: Normal reaction of pupils, equal size. NOSE: Clear with pink turbinates. THROAT: No erythema or exudates. NECK: Tracheostomy tube secured in place. No masses, no JVD. Patient is #6 Shiley tracheostomy tube. The patient has a large scar over the anterior neck area. CHEST: No chest wall deformity. LUNGS: Equal air entry with few scattered rhonchi. CVS: S1 and S2 normal with no audible murmur, regular rhythm. ABDOMEN: PEG tube secured in place. No hepatosplenomegaly, normal bowel sounds, no guarding or rigidity. SPINE: No scoliosis or deformity SKIN: No rashes CENTRAL NERVOUS SYSTEM: No focal deficits, tone is normal in all 4 extremities. EXTREMITIES: There is no peripheral edema. No clubbing, no cyanosis. Peripheral pulses are intact. - Labs CBC & Chem 7: 07/14/24 07:08 07/14/24 07:08 Labs: Abnormal Lab Results - Last 24 Hours (Table) 07/14/24 07/14/24 07/14/24 Range/Units 06:16 07:08 07:08 RDW 15.8 H (11.5-15.5) % Creatinine 0.43 L (0.52-1.04) mg/dL Glucose 107 H (74-99) mg/dL POC Glucose (mg/dL) 111 H (70-110) mg/dL 07/14/24 Range/Units 11:26 RDW (11.5-15.5) % Creatinine (0.52-1.04) mg/dL Glucose (74-99) mg/dL POC Glucose (mg/dL) 113 H (70-110) mg/dL Microbiology - Last 24 Hours (Table) 07/10/24 05:16 Blood Culture - Preliminary Blood 07/10/24 16:10 Gram Stain - Final Sputum Sputum Culture - Final Streptococcus pneumoniae Assessment and Plan Plan: Acute respiratory failure, secondary to Wellbutrin overdose which required significant amount of sedation and patient developed respiratory failure requiring intubation and mechanical ventilation and diffuse bilateral pneumonia. The patient had prolonged respiratory failure, requiring tracheostomy tube insertion. Follow-up chest x-ray from today shows some limited atelectatic changes in lung base bilaterally. Stable oxygenation. Sputum sample is positive for strep pneumo and the patient remains on IV Rocephin and 40% trach collar Bibasilar pulmonary infiltrates with sputum cultures positive for Streptococcus pneumonia. White cell count is improving and the patient remains on IV Rocephin Acute hypoxic respiratory failure secondary to pneumonia which has developed post intubation, likely of an aspiration type, improving, the patient is currently on a 40% trach collar Wellbutrin overdose Borderline personality disorder Suicidal attempt Aspiration pneumonia Sepsis secondary to aspiration pneumonia Electrolytes imbalance History of generalized anxiety disorder MSSA pneumonia Plan: Aggressive pulmonary toileting Repeated suctioning Keep the patient on 40% trach collar and monitor respiratory status very closely. Scopolamine patch Pulmonary toileting and suctioning Continue Lamictal and Cymbalta, dose has been modified to 60 mg p.o. daily Continue IV Rocephin Continue tracheostomy care Continue PEG tube feeding for nutritional support Diarrhea has subsided Heparin subcu for DVT prophylaxis Full physical therapy Case management working on obtaining insurance and eventual rehabilitation facility We will continue to follow and make further recommendations based on her clinical status Time with Patient: Greater than 30
[2024-07-14 18:38] LABS: Glucose,Whole Blood 91 mg/dL (70-110)
[2024-07-15 00:11] LABS: Glucose,Whole Blood 96 mg/dL (70-110)
[2024-07-15 06:16] LABS: Glucose,Whole Blood 95 mg/dL (70-110)
--- NOTE | 2024-07-15 06:48 | XR ---
EXAMINATION TYPE: XR ankle complete RT DATE OF EXAM: 07/15/2024 COMPARISON: NONE HISTORY: Fall, pain TECHNIQUE: Frontal, lateral and oblique images of the right ankle are obtained. COMPARISON: None. FINDINGS: There is no acute fracture/dislocation evident. The joint spaces appear within normal vela its. The overlying soft tissue appears unremarkable. IMPRESSION: There is no acute fracture or dislocation seen. [facility], , 07/15/2024 6:46 AM
[2024-07-15 09:14] LABS: Basophils % (A) 0 %; Eosinophils % (A) 0 %; HCT 43.5 % (34.0-46.0); HGB 13.6 gm/dL (11.4-16.0); Lymphocytes # (A) 1.6 k/uL (1.0-4.8); Lymphocytes % (A) 15 %; MCH 30.5 pg (25.0-35.0); MCHC 31.3 g/dL (31.0-37.0); MCV 97.5 fL (80.0-100.0); Macrocytosis Slight; Mean Platelet Volume 8.5; Monocytes # (A) 0.7 k/uL (0-1.0); Monocytes % (A) 7 %; Neutrophils # (A) 8.4 k/uL (1.3-7.7); Neutrophils % (A) 77 %; Platelet Count 282 k/uL (150-450); RBC 4.46 m/uL (3.80-5.40); RDW 15.5 % (11.5-15.5); WBC 10.9 k/uL (3.8-10.6)
[2024-07-15 09:25] LABS: Potassium 4.5 mmol/L (3.5-5.1)
[2024-07-15 09:26] LABS: African American GFR (CKD) >90 (>60 ml/min/1.73 sqM); Anion Gap 13 mmol/L; Blood Urea Nitrogen 15 mg/dL (7-17); Calcium 9.7 mg/dL (8.4-10.2); Carbon Dioxide 23 mmol/L (22-30); Chloride 106 mmol/L (98-107); Glucose 118 mg/dL (74-99); Non-African American GFR(CKD) >90 (>60 ml/min/1.73 sqM); Sodium 142 mmol/L (137-145)
--- NOTE | 2024-07-15 11:39 | P.PN ---
Subjective Progress Note Date: 07/15/24 Hospital Course: 28 year old F with PMH of anxiety and borderline personality disorder on Wellb utrin presented after intentional ingestion of Wellbutrin. Patient is psychotic at the time my evaluation does not provide reliable history. According to ER provider signout as well as chart review, patient ingested somewhere between 50- 90 extended release Wellbutrin tablets and an overdose attempt. Patient is clearly agitated, tachycardic at the time my evaluation. Upon arrival patient was afebrile, 148/96, heart rate 83. Patient subsequently received activated charcoal, was started on IV fluids, and given a total of 7 mg of Ativan while on continuous telemetry, with heart rates increasing to the 130s to 140s. The ER provider did contact poison control control who recommended medical monitoring until patient is stable for transfer to the mental health unit. Review of lab work shows normal CBC, CO2 of 20, ALT of 91, negative troponin, normal lactic acid, negative salicylate level, alcohol level, Tylenol level. Initial EKG shows normal sinus rhythm with a short W[place] interval and right axis deviation. Patient was admitted to the cardiac selective floor with telemetry, with low threshold for ICU escalation. Received multiple doses of Ativan + Librium, remained agitated, intubated on 06/27. Concerns for aspiration on 06/28, started on Zosyn with Vancomycin added for staph sputum Cx. IV consulted, switched to Unasyn on 06/29. Eraxis started for Vaginal candidiasis. Completed 4 days of Eraxis and 10 days of Unasyn on 07/08. Started on Zosyn for leukocytosis on 07/10. Concerns for seizures, started on Depakote, Neurology consulted. CT head showed no acute hemorrhage, areas of low-attenuation in the bilateral cerebellar hemisphere slightly more prominent on the right, per neurology, could be artifact. EEG done in was abnormal, showed background slowing suggestive of mild encephalopathy likely due to toxic metabolic derangement as well as medication use, no epileptiform discharges, seizures. Poison control recommended phenobarbital 570 mg IV x1 on 06/29. Continued on Valproic acid 250 mg IV BID. Difficulty with extubation, CTA chest 07/02 showed no PE, multifocal PNA, c ardiomegaly with small pleural effusions. Underwent successful Trach/PEG on 07/05. Started on Zosyn 3.75g IV TID for worsening leukocytosis on 07/09 07/11, patient was put on trach mask of 40%, afebrile since 07/10 4 AM. 07/12 on trach mask, tachypneic and anxious at times. Sputum cultures from 07/10 for s trep pneumonia patient was switched to ceftriaxone on 07/12.repeat CT head on 07/11/[address] cervical spine: No acute intracranial process. No evidence of cervical spine fracture. Mild multilevel degenerative disc disease. 07/13: Patient is tolerating trach mask well, short of breath at times, complains of diarrhea, no abdominal pain. Max temp in the past 24 hours 99.8. Precedex on hold, psychiatry increased Cymbalta to 60 mg daily, recommended to continue Ativan as needed for agitation 07/14 was seen on 3 S., patient is very emotional and tearful, stated that she would like to go home, with had an extensive discussion regarding her current medical state, need for treatment continuation, rehab placement, she demonstrated understanding. Patient did have an unwitnessed fall without head trauma or loss of consciousness. She is afebrile, hemodynamically stable on trach collar 07/15. Afebrile, denies shortness of breath today, had 2 loose bowel movements over the past 1 day, we did again discuss her discharge planning, I explained extensively the need for rehab placement, patient demonstrated understanding Difficulty with placement.Patient has no insurance. Public guardian in process. Case management on board. Pertinent Imaging: Ankle x-ray interpreted independently, no dislocation or fractures Subjective: Denies shortness of breath, abdominal pain, still has episodes of loose bowel movements Pertinent positives and negatives as discussed above, a complete review of sy stems was performed and all other systems are negative. Vitals Signs Reviewed. General: [nontoxic], [no distress], [appears at stated age] Derm: [warm], [dry] Head: [atraumatic], [normocephalic], [symmetric], trach Eyes: [EOMI], [no lid lag], [anicteric sclera] Mouth: [no lip lesion], [mucus membranes moist] Cardiovascular: [S1S2 reg], [no murmur] Lungs: Bilateral rhonchi, [no accessory muscle use], on trach collar Abdominal: [soft], [ nontender to palpation], [no guarding], [no appreciable organomegaly] PEG tube in place, Archer in place Ext: [no gross muscle atrophy], [no edema], [no contractures] Neuro: [ CN II-XI grossly intact], [no focal neuro deficits], Psych: [Alert], [oriented], [appropriate affect] Data Reviewed Today: Pertinent Labs: WBC 10.9 C, hemoglobin and platelet count normal, sodium, potassium, bicarb, creatinine WNL, glucose is controlled Assessment and Plan: Acute respiratory failure s/p intubation for airway protection 06/27 Sepsis likely secondary to aspiration pneumonia with S. aureus Sputum Cx Strep pneumo ventilator associated pneumonia Status post PEG/Trach 07/05 -CTA chest negative for PE but does show multifocal PNA with cardiomegaly and small pleural effusions. . -Completed 10 days of Unasyn on 07/08. Started on Zosyn 3.75g IV TID for worsening leukocytosis on 07/09. Repeat UA, BCx - NGTD -Switch to ceftriaxone for strep pneumo and sputum on 07/12 . Tylenol 650 mg PO Q6H PRN fever. Elevated HOB. Aspiration precautions. Vent on standby as of 07/11 AM. -Precedex on hold, psychiatry increased Cymbalta to 60 mg daily, recommended to continue Ativan as needed for agitation Acute metabolic encephalopathy due to below: CT head 06/29 no acute process. B12 1207. Folate 707. EEG shows encephalopathy with no seizure activity, Valproic acid discontinued by Neurology on 07/09. Seizure precautions. Neurology on board. repeat CT head on 07/11/[address] cervical spine: No acute intracranial process. No evidence of cervical spine fracture. Mild multilevel degenerative disc disease. Intentional overdose with Wellbutrin Iron def anemia: Iron level of 9. Defer IV iron while treating active infection. Monitor Hg. Transfuse if Hg < 7. Constipation, resolved: now has diarrhea, stopped Miralax 17g PO QHS. Lactulose 20g PO QD PRN. Anxiety and Borderline personality disorder: Pyschiatry on board. Resolved: Metabolic acidosis, Hypokalemia, Hypomagnesemia DVT ppx: Heparin Code status: Full code Anticipated discharge place: TBD Anticipated discharge time: TBD Objective - Vital Signs Vital signs: Vital Signs Temp 98.1 F 07/15/24 03:16 Pulse 95 07/15/24 09:23 Resp 16 07/15/24 09:23 BP 118/86 07/15/24 09:23 Pulse Ox 96 07/15/24 09:23 FiO2 40 07/15/24 09:23 Intake & Output 07/14/24 07/15/24 07/15/24 18:59 06:59 18:59 Output Total 850 900 Balance -850 -900 Weight 111.7 kg Output: Urine 850 900 Other: Voiding Method Indwelling Catheter Indwelling Catheter ABP, PAP, CO, CI - Last Documented Arterial Blood Pressure 112/61 - Labs CBC & Chem 7: 07/15/24 08:35 07/15/24 08:35 Labs: Abnormal Lab Results - Last 24 Hours (Table) 07/15/24 07/15/24 Range/Units 08:35 08:35 WBC 10.9 H (3.8-10.6) k/uL Neutrophils # 8.4 H (1.3-7.7) k/uL Creatinine 0.39 L (0.52-1.04) mg/dL Glucose 118 H (74-99) mg/dL Microbiology - Last 24 Hours (Table) 07/12/24 17:50 Gram Stain - Final Sputum Sputum Culture - Final Staphylococcus aureus
[2024-07-15 11:53] LABS: Glucose,Whole Blood 101 mg/dL (70-110)
--- NOTE | 2024-07-15 12:49 | P.PN ---
Progress Note - Text Progress Note Date: 07/15/24 CHIEF COMPLAINT: Intentional overdose HISTORY OF PRESENT ILLNESS: Patient is postop day #9 status post tracheostomy and PEG tube placement. No acute events overnight. Tolerating tube feeds PHYSICAL EXAM: VITAL SIGNS: Reviewed. GENERAL: no acute distress. HEENT: Tracheostomy site dry and intact ABDOMEN: Soft. Obese. PEG tube site clean dry and intact ASSESSMENT: 1. Acute respiratory failure s/p intubation to protect airway after patient received significant sedation for agitation from Wellbutrin overdose and had an aspiration pneumonia 2. Severe protein calorie malnutrition 3. Suicide attempt with Wellbutrin overdose PLAN: -Continue tube feeds -Continue supportive care Khoa Pruett DO [facility] [phone]
--- NOTE | 2024-07-15 13:37 | P.PN ---
Subjective Progress Note Date: 07/15/24 On 07/10/2024, the patient is being seen for a follow-up. The patient is awake and alert and communicating. Overnight, she became slightly more restless and the patient was started on low-dose propofol which is running at 50 mcg/kg/min. This morning, her tracheostomy site is intact. She has a #[address] She is on assist-control mode at rate of 60, tidal volume of 500, FiO2 of 50% with a PEEP of 10. Blood gas showed a pH of 7.46 with a pCO2 of 38 and pO2 113. The patient has a PEG tube for enteral feeding and nutritional support. He is on vital HP at rate of 40 cc an hour. She is having loose liquidy bowel movements. White cell count was elevated at 17.5 with a hemoglobin of 13. Based on that, the patient was started empiric antibiotic coverage with IV Zosyn. Chest x-ray from today shows no significant airspace disease or consolidation. There is some persistent left more than right basilar infiltrate/atelectasis possibly some small pleural effusions. Otherwise, her sodium is at 142, potassium level 3.7, bicarbonate 27, BUN is 15 with a creatinine of 0.5. Repeat cultures are still pending. Blood cultures are negative. The patient has a femoral triple-lumen catheter in place. She is on Prozac. Her psychiatric medication needs to be reevaluated by the psychiatrist. She was taking a combination of Pristiq, Wellbutrin and Lamictal on an outpatient basis. 07/11/2024, the patient is arousable. She was taken off the propofol and the patient was started on Precedex to control her restlessness and agitation. The patient has done better with Precedex which is currently running at 0.5 mcg/kg/h. She is calm and comfortable and arousable. This morning, she still on the mechanical ventilator. She is on assist-control at rate of 16, tidal volume of 500, FiO2 50% with a PEEP of 5. Blood gas showed a pH of 7.46 with a pCO2 of 39 and pO2 of 78. The patient has excellent weaning parameters. I think her failure to wean is essentially related to increased anxiety and agitation. Based on that, I did contact this patient on the mechanical ventilator and put her on trach collar and she was very comfortable on trach collar which is currently at 40%. Her oxygenation is stable. She was having some respiratory secretions and she has an adequate cough. Scopolamine patch was also added. Meanwhile, the follow-up chest x-ray that was done this morning shows some infiltrate in the lung bases/atelectasis left more than right. Tracheostomy is up in the trachea. The white cell count is at 4.4 with a hemoglobin of 10.8 and a platelet count of 182. Sodium is at 140, potassium is at 3.3, BUN 23 and a creatinine of 0.6. The patient was seen by psychiatry. The patient was started on Cymbalta 30 mg p.o. daily and the patient was also started on Lamictal 25 mg p.o. daily. She is profoundly weak yet awake and alert and communicating. No new complaints otherwise for now. On 07/12/2024, the patient remains on Precedex which is running at 0.6 mcg/kg/h. This will be gradually weaned off. Seems to be comfortable on Precedex. Nevertheless, I am concerned that the patient is going to become more anxious and restless while being off Precedex. Meanwhile, Cymbalta dose was increased up to 60 mg p.o. daily. The patient is also on Ativan as needed and Lamictal. In terms of respiratory status, the patient is currently on a trach collar. Sp utum sample was positive for Streptococcus pneumonia and the patient remains on IV Zosyn. Noted the patient's white cell count has been improving. Respiratory secretions are still present and the patient was given a scopolamine patch. No significant respiratory distress. She has an adequate cough. She has profound weakness in all 4 extremities. WBC count is at 10.4, hemoglobin of [address] atelet count of 144. BUN is 19 with a creatinine of 0.5 and a sodium level is at 138. The platelet counts have been gradually dropping. Meanwhile, the patient continues to be on enteral feeding for nutritional support and she is on vital HP at rate of 55 cc an hour. No other significant events overnight. On 07/13/2024, the patient is being seen for a follow-up. The patient is awake and alert and communicating and the patient is currently off Precedex. She is on a 35% trach collar. No significant shortness of breath. Respiratory changes are less. Sputum sample was positive for strep pneumo and a follow-up chest x- ray from today shows atelectatic change in lung bases persistent pulm vascular congestion. The patient denies having any significant respiratory distress. She has a solid tracheostomy tube in place. She continues to receive enteral feeding for nutritional support and the patient is currently on vital HP at rate of 35 cc an hour. The WBC count is 11.3, hemoglobin 12.7 and a platelet count of 190. BUN is 50 mg and 0.35 and sodium levels at 139 and a potassium level is at 4.7. No other significant events overnight. On 07/14/2024, the patient is emotional and she is having crying episodes. As she was trying to reach to her push button, the patient had a fall without any major damages. No head trauma. No body trauma. She was transferred out of the intensive care unit yesterday. The patient has a tracheostomy and the patient is currently on 40% trach collar. Respiratory secretions are improving. Chest x-ray showing atelectatic changes in the right lung base. The white cell count of 9.3 with a heme of 13.6. The sputum sample was positive for strep and the patient is currently on IV Rocephin. Sodium is at 140, BUN 16 with a creatinine of 0.4. No other significant events otherwise for now. The patient was transferred out of the intensive care unit yesterday. On 07/15/2024, the patient's condition is stable. She has a tracheostomy tube in place and the patient is currently on a 40% trach collar. No significant respiratory secretions. No respiratory distress. She is also receiving enteral feeding for nutritional support. She should be able to swallow radiation. I am considering some oral intake for this patient. WBC count is at 10 hemoglobin 13.6 and a platelet count of 282. Electrolytes are all within normal limits. Medications are essentially unchanged. The patient remains on IV Rocephin for a strep/staph/MSSA in the sputum. Objective - Vital Signs Vital signs: Vital Signs Temp 98.1 F 07/15/24 03:16 Pulse 95 07/15/24 09:23 Resp 16 07/15/24 09:23 BP 118/86 07/15/24 09:23 Pulse Ox 96 07/15/24 09:23 FiO2 40 07/15/24 09:23 Intake & Output 0307/15/24 07/15/24 18:59 06:59 18:59 Output Total 850 900 Balance -850 -900 Weight 111.7 kg Output: Urine 850 900 Other: Voiding Method Indwelling Catheter Indwelling Catheter ABP, PAP, CO, CI - Last Documented Arterial Blood Pressure 112/61 - Exam GENERAL EXAM: Alert, 28-year-old female, patient is currently on Precedex. The patient is on trach collar at 35% FiO2. HEAD: Normocephalic. EYES: Normal reaction of pupils, equal size. NOSE: Clear with pink turbinates. THROAT: No erythema or exudates. NECK: Tracheostomy tube secured in place. No masses, no JVD. Patient is #6 Shiley tracheostomy tube. The patient has a large scar over the anterior neck area. CHEST: No chest wall deformity. LUNGS: Equal air entry with few scattered rhonchi. CVS: S1 and S2 normal with no audible murmur, regular rhythm. ABDOMEN: PEG tube secured in place. No hepatosplenomegaly, normal bowel sounds, no guarding or rigidity. SPINE: No scoliosis or deformity SKIN: No rashes CENTRAL NERVOUS SYSTEM: No focal deficits, tone is normal in all 4 extremities. EXTREMITIES: There is no peripheral edema. No clubbing, no cyanosis. Per ipheral pulses are intact. - Labs CBC & Chem 7: 07/15/24 08:35 07/15/24 08:35 Labs: Abnormal Lab Results - Last 24 Hours (Table) 07/14/24 07/15/24 07/15/24 Range/Units 11:26 08:35 08:35 WBC 10.9 H (3.8-10.6) k/uL Neutrophils # 8.4 H (1.3-7.7) k/uL Creatinine 0.39 L (0.52-1.04) mg/dL Glucose 118 H (74-99) mg/dL POC Glucose (mg/dL) 113 H (70-110) mg/dL Microbiology - Last 24 Hours (Table) 07/12/24 17:50 Gram Stain - Final Sputum Sputum Culture - Final Staphylococcus aureus Assessment and Plan Plan: Acute respiratory failure, secondary to Wellbutrin overdose which required significant amount of sedation and patient developed respiratory failure requiring intubation and mechanical ventilation and diffuse bilateral pneumonia. The patient had prolonged respiratory failure, requiring tracheostomy tube insertion. Follow-up chest x-ray from today shows some limited atelectatic changes in lung base bilaterally. Stable oxygenation. Sputum sample is positive for strep pneumo and the patient remains on IV Rocephin and 40% trach collar Bibasilar pulmonary infiltrates with sputum cultures positive for Streptococcus pneumonia and MSSA. White cell count is improving and the patient remains on IV Rocephin Acute hypoxic respiratory failure secondary to pneumonia which has developed post intubation, likely of an aspiration type, improving, the patient is currently on a 40% trach collar Wellbutrin overdose Borderline personality disorder Suicidal attempt Aspiration pneumonia Sepsis secondary to aspiration pneumonia Electrolytes imbalance History of generalized anxiety disorder MSSA pneumonia Plan: Aggressive pulmonary toileting Repeated suctioning Keep the patient on 40% trach collar and monitor respiratory status very closely. Scopolamine patch Pulmonary toileting and suctioning Do a bedside swallow evaluation and offered the patient oral intake if she is able to swallow properly. Continue Lamictal and Cymbalta 60 mg p.o. daily Continue IV Rocephin Continue tracheostomy care Continue PEG tube feeding for nutritional support Diarrhea has subsided Heparin subcu for DVT prophylaxis Full physical therapy Case management working on obtaining insurance and eventual rehabilitation facility
[2024-07-15 16:35] LABS: Glucose,Whole Blood 103 mg/dL (70-110)
--- NOTE | 2024-07-15 16:42 | P.PN ---
Subjective Progress Note Date: 07/15/24 Principal diagnosis: Reason for follow-up is MSSA/aspiration pneumonia Patient is a 28-year-old female with a past medical history of dependent for reflux, anxiety and depression presenting to the hospital after the patient overdosed on 50-90 Wellbutrin tablets subsequent did have a agitation respiratory distress requiring revision admission to the ICU ID consulted because of concern for aspiration pneumonia.The patient is status post tracheostomy and PEG tube placement on 07/05/2024. On today's visit that is 07/15/2024, patient did not have any fever and denies a ny chills, patient is breathing comfortably on trach collar, patient with no chest pain or cough patient did not have any abdominal pain nausea vomiting or any loose stools. Patient white count is 10.8, creatinine 0.3 9 repeat sputum with MSSA Objective - Vital Signs Vital signs: Vital Signs Temp 98.1 F 07/15/24 03:16 Pulse 91 07/15/24 15:54 Resp 16 07/15/24 15:54 BP 120/80 07/15/24 15:54 Pulse Ox 94 L 07/15/24 15:54 FiO2 40 07/15/24 15:54 Intake & Output 07/14/24 07/15/24 07/15/24 18:59 06:59 18:59 Intake Total 50 Output Total 850 900 250 Balance -850 -900 -200 Weight 111.7 kg Intake: IV 50 cefTRIAXone 2 gm In 50 Sodium Chloride 0.9% 50 ml @ 100 mls/hr IVPB Q24HR [facility] Rx#:[id number] Output: Urine 850 900 250 Other: Voiding Method Indwelling Catheter Indwelling Catheter Indwelling Catheter ABP, PAP, CO, CI - Last Documented Arterial Blood Pressure 112/61 - Exam GENERAL DESCRIPTION: Middle-age female up in the chair in no distress RESPIRATORY SYSTEM: Unlabored breathing , decreased breath sounds at bases HEART: S1 S2 regular rate and rhythm , ABDOMEN: Soft , no tenderness EXTREMITIES: No edema feet - Labs CBC & Chem 7: 07/15/24 08:35 07/15/24 08:35 Labs: Abnormal Lab Results - Last 24 Hours (Table) 07/15/24 07/15/24 Range/Units 08:35 08:35 WBC 10.9 H (3.8-10.6) k/uL Neutrophils # 8.4 H (1.3-7.7) k/uL Creatinine 0.39 L (0.52-1.04) mg/dL Glucose 118 H (74-99) mg/dL Microbiology - Last 24 Hours (Table) 07/10/24 05:16 Blood Culture - Final Blood 07/12/24 17:50 Gram Stain - Final Sputum Sputum Culture - Final Staphylococcus aureus Assessment and Plan (1) Sepsis Current Visit: Yes Status: Acute Code(s): A41.9 - SEPSIS, UNSPECIFIED ORGANISM SNOMED Code(s): 43962259 (2) Pneumonia Current Visit: Yes Status: Acute Code(s): J18.9 - PNEUMONIA, UNSPECIFIED ORGANISM SNOMED Code(s): 589480059 (3) MSSA (methicillin susceptible Staphylococcus aureus) infection Current Visit: Yes Status: Acute Code(s): A49.01 - METHICILLIN SUSCEP STAPH INFECTION, UNSP SITE SNOMED Code(s): 456102978 Plan: 1patient presenting the hospital with drug overdose with subsequent agitation respiratory distress requiring intubation concerning for possible aspiration pneumonia sputum is now growing MSSA in this patient who did have features of se psis with fever elevated white count and hypotension requiring low-dose pressor support on initial evaluation. 2-patient did have resolution of her fever the patient white count normalized blood culture have been negative so far, sputum grew MSSA for the patient completed her Unasyn therapy 3patient vaginal area candidiasis for which the patient has completed course of Eraxis 4groin area candidiasis treated with with nystatin powder twice a day. 5-the patient did have resolution of her fever white normalized, sputum Streptococcus pneumoniae/MSSA 6 patient is currently being treated with Rocephin to continue while inpatient and can be transition to oral on discharge Dictation was produced using [employer] dictation software. please excuse any grammatical, word or spelling errors. Time with Patient: Less than 30
[2024-07-15 23:55] LABS: Glucose,Whole Blood 106 mg/dL (70-110)
[2024-07-16 06:19] LABS: Glucose,Whole Blood 117 mg/dL (70-110)
[2024-07-16 07:27] LABS: Basophils % (A) 0 %; Eosinophils % (A) 0 %; HCT 45.4 % (34.0-46.0); HGB 14.1 gm/dL (11.4-16.0); Hypochromasia Slight; Lymphocytes % (A) 19 %; MCH 30.2 pg (25.0-35.0); MCHC 30.9 g/dL (31.0-37.0); MCV 97.8 fL (80.0-100.0); Macrocytosis Slight; Mean Platelet Volume 8.4; Monocytes # (A) 0.8 k/uL (0-1.0); Monocytes % (A) 8 %; Neutrophils # (A) 7.2 k/uL (1.3-7.7); Neutrophils % (A) 70 %; Platelet Count 335 k/uL (150-450); RBC 4.65 m/uL (3.80-5.40); RDW 15.5 % (11.5-15.5); WBC 10.3 k/uL (3.8-10.6)
[2024-07-16 07:48] LABS: African American GFR (CKD) >90 (>60 ml/min/1.73 sqM); Anion Gap 10 mmol/L; Blood Urea Nitrogen 17 mg/dL (7-17); Calcium 9.8 mg/dL (8.4-10.2); Carbon Dioxide 26 mmol/L (22-30); Chloride 105 mmol/L (98-107); Glucose 116 mg/dL (74-99); Non-African American GFR(CKD) >90 (>60 ml/min/1.73 sqM); Potassium 4.2 mmol/L (3.5-5.1); Sodium 141 mmol/L (137-145)
[2024-07-16] MEDS: ONDANSETRON 4 MG/2 ML VIAL IVP PRN (09:00)
--- NOTE | 2024-07-16 09:25 | P.PN ---
Progress Note - Text Progress Note Date: 07/16/24 HISTORY OF PRESENT ILLNESS: Patient is postop day #10 status post tracheostomy and PEG tube placement. No acute events overnight. Tolerating tube feeds PHYSICAL EXAM: VITAL SIGNS: Reviewed. GENERAL: no acute distress. HEENT: Tracheostomy site dry and intact ABDOMEN: Soft. Obese. PEG tube site clean dry and intact ASSESSMENT: 1. Acute respiratory failure s/p intubation to protect airway after patient received significant sedation for agitation from Wellbutrin overdose and had an aspiration pneumonia 2. Severe protein calorie malnutrition 3. Suicide attempt with Wellbutrin overdose PLAN: -Continue tube feeds -Continue supportive care Khoa Pruett DO [facility] [phone]
[2024-07-16] MEDS ORDERED: MELATONIN 5 MG TABLET PO PRN (11:17)
--- NOTE | 2024-07-16 11:17 | P.PN ---
Subjective Progress Note Date: 07/16/24 Hospital Course: 28 year old F with PMH of anxiety and borderline personality disorder on Wellb utrin presented after intentional ingestion of Wellbutrin. Patient is psychotic at the time my evaluation does not provide reliable history. According to ER provider signout as well as chart review, patient ingested somewhere between 50- 90 extended release Wellbutrin tablets and an overdose attempt. Patient is clearly agitated, tachycardic at the time my evaluation. Upon arrival patient was afebrile, 148/96, heart rate 83. Patient subsequently received activated charcoal, was started on IV fluids, and given a total of 7 mg of Ativan while on continuous telemetry, with heart rates increasing to the 130s to 140s. The ER provider did contact poison control control who recommended medical monitoring until patient is stable for transfer to the mental health unit. Review of lab work shows normal CBC, CO2 of 20, ALT of 91, negative troponin, normal lactic acid, negative salicylate level, alcohol level, Tylenol level. Initial EKG shows normal sinus rhythm with a short ME interval and right axis deviation. Patient was admitted to the cardiac selective floor with telemetry, with low threshold for ICU escalation. Received multiple doses of Ativan + Librium, remained agitated, intubated on 06/27. Concerns for aspiration on 06/28, started on Zosyn with Vancomycin added for staph sputum Cx. IV consulted, switched to Unasyn on 06/29. Eraxis started for Vaginal candidiasis. Completed 4 days of Eraxis and 10 days of Unasyn on 07/08. Started on Zosyn for leukocytosis on 07/10. Concerns for seizures, started on Depakote, Neurology consulted. CT head showed no acute hemorrhage, areas of low-attenuation in the bilateral cerebellar hemisphere slightly more prominent on the right, per neurology, could be artifact. EEG done in was abnormal, showed background slowing suggestive of mild encephalopathy likely due to toxic metabolic derangement as well as medication use, no epileptiform discharges, seizures. Poison control recommended phenobarbital 570 mg IV x1 on 06/29. Continued on Valproic acid 250 mg IV BID. Difficulty with extubation, CTA chest 07/02 showed no PE, multifocal PNA, c ardiomegaly with small pleural effusions. Underwent successful Trach/PEG on 07/05. Started on Zosyn 3.75g IV TID for worsening leukocytosis on 07/09 07/11, patient was put on trach mask of 40%, Sputum cultures from 07/10 for strep pneumonia patient was switched to ceftriaxone on 07/12.repeat CT head on 03/[address] cervical spine: No acute intracranial process. No evidence of cervical spine fracture. Mild multilevel degenerative disc disease. psychiatry increased Cymbalta to 60 mg daily, recommended to continue Ativan as needed for agitation 07/16: Hemodynamically stable, no shortness of breath, continues to have around 2 loose bowel movements a day, per pulmonology, can have bedside swallow evaluation and trial of solids, [employer] consulted, discussed with RN Difficulty with placement.Patient has no insurance. Public guardian in process. Case management on board. Subjective: Denies shortness of breath, abdominal pain, still has episodes of loose bowel movements (2 in the past 24 hours, large) Pertinent positives and negatives as discussed above, a complete review of systems was performed and all other systems are negative. Vitals Signs Reviewed. General: [nontoxic], [no distress], [appears at stated age] Derm: [warm], [dry] Head: [atraumatic], [normocephalic], [symmetric], trach Eyes: [EOMI], [no lid lag], [anicteric sclera] Mouth: [no lip lesion], [mucus membranes moist] Cardiovascular: [S1S2 reg], [no murmur] Lungs: Bilateral rhonchi still present, [no accessory muscle use], on trach collar Abdominal: [soft], [ nontender to palpation], [no guarding], [no appreciable or ganomegaly] PEG tube in place, Archer in place Ext: [no gross muscle atrophy], [no edema], [no contractures] Neuro: [ CN II-XI grossly intact], [no focal neuro deficits], Psych: [Alert], [oriented], [appropriate affect] Data Reviewed Today: Pertinent Labs: WBC 10.3 C, hemoglobin and platelet count normal, sodium, potassium, bicarb, creatinine WNL, glucose is controlled Assessment and Plan: Acute respiratory failure s/p intubation for airway protection 06/27 Sepsis likely secondary to aspiration pneumonia with S. aureus Sputum Cx Strep pneumo ventilator associated pneumonia Status post PEG/Trach 07/05 -CTA chest negative for PE but does show multifocal PNA with cardiomegaly and small pleural effusions. . -Completed 10 days of Unasyn on 07/08. Started on Zosyn 3.75g IV TID for worsening leukocytosis on 07/09. Repeat UA, BCx - NGTD -Switch to ceftriaxone for strep pneumo and sputum on 07/12, . Tylenol 650 mg PO Q6H PRN fever. Elevated HOB. Aspiration precautions. -psychiatry increased Cymbalta to 60 mg daily, recommended to continue Ativan as needed for agitation Acute metabolic encephalopathy due to below, resolved: CT head 06/29 no acute process. B12 1207. Folate 707. EEG shows encephalopathy with no seizure activity, Valproic acid discontinued by Neurology on 07/09. Seizure precautions. Neurology on board. repeat CT head on 07/11/[address] cervical spine: No acute intracranial process. No evidence of cervical spine fracture. Mild multilevel degenerative disc disease. Intentional overdose with Wellbutrin Iron def anemia: Iron level of 9. Defer IV iron while treating active infection. Monitor Hg. Transfuse if Hg < 7. Constipation, resolved: now has diarrhea, stopped Miralax 17g PO QHS. Lactulose 20g PO QD PRN. Anxiety and Borderline personality disorder: Pyschiatry on board. Resolved: Metabolic acidosis, Hypokalemia, Hypomagnesemia DVT ppx: Heparin Code status: Full code Anticipated discharge place: TBD Anticipated discharge time: TBD Objective - Vital Signs Vital signs: Vital Signs Temp 97.8 F 07/15/24 19:34 Pulse 109 H 07/16/24 10:03 Resp 17 07/16/24 10:03 BP 116/68 07/16/24 07:47 Pulse Ox 95 07/16/24 07:47 FiO2 40 07/16/24 07:47 Intake & Output 07/15/24 07/16/24 07/16/24 18:59 06:59 18:59 Intake Total 50 Output Total 525 350 100 Balance -475 -350 -100 Weight 111.8 kg Intake: IV 50 cefTRIAXone 2 gm In 50 Sodium Chloride 0.9% 50 ml @ 100 mls/hr IVPB Q24HR [facility] Rx#:[id number] Output: Urine 525 350 100 Other: Voiding Method Indwelling Catheter Indwelling Catheter Indwelling Catheter # Bowel Movements 1 ABP, PAP, CO, CI - Last Documented Arterial Blood Pressure 112/61 - Labs CBC & Chem 7: 07/16/24 07:10 07/16/24 07:10 Labs: Abnormal Lab Results - Last 24 Hours (Table) 07/16/24 07/16/24 07/16/24 Range/Units 06:16 07:10 07:10 MCHC 30.9 L (31.0-37.0) g/dL Creatinine 0.45 L (0.52-1.04) mg/dL Glucose 116 H (74-99) mg/dL POC Glucose (mg/dL) 117 H (70-110) mg/dL Microbiology - Last 24 Hours (Table) 07/10/24 05:16 Blood Culture - Final Blood 07/12/24 17:50 Gram Stain - Final Sputum Sputum Culture - Final Staphylococcus aureus
[2024-07-16 11:52] LABS: Glucose,Whole Blood 91 mg/dL (70-110)
--- NOTE | 2024-07-16 15:58 | P.PN ---
Subjective Progress Note Date: 07/16/24 Principal diagnosis: Reason for follow-up is MSSA/aspiration pneumonia Patient is a 28-year-old female with a past medical history of dependent for reflux, anxiety and depression presenting to the hospital after the patient overdosed on 50-90 Wellbutrin tablets subsequent did have a agitation respiratory distress requiring revision admission to the ICU ID consulted because of concern for aspiration pneumonia.The patient is status post tracheostomy and PEG tube placement on 07/05/2024. On today's visit that is 07/16/2024, Patient is afebrile patient is currently on trach collar and denies having any shortness of breath, the patient denies any chest pain or cough, the patient denies any nausea vomiting did not have any abdominal pain complaining of some diarrhea. Patient white count is 10.3, creatinine 0.45 Objective - Vital Signs Vital signs: Vital Signs Temp 97.8 F 07/15/24 19:34 Pulse 109 H 07/16/24 13:51 Resp 17 07/16/24 13:51 BP 121/79 07/16/24 11:51 Pulse Ox 97 07/16/24 12:40 FiO2 40 07/16/24 12:40 Intake & Output 07/15/24 07/16/24 07/16/24 18:59 06:59 18:59 Intake Total 50 Output Total 525 350 300 Balance -475 -350 -300 Weight 111.8 kg Intake: IV 50 cefTRIAXone 2 gm In 50 Sodium Chloride 0.9% 50 ml @ 100 mls/hr IVPB Q24HR [facility] Rx#:[id number] Output: Urine 525 350 300 Other: Voiding Method Indwelling Catheter Indwelling Catheter Indwelling Catheter # Bowel Movements 1 ABP, PAP, CO, CI - Last Documented Arterial Blood Pressure 112/61 - Exam GENERAL DESCRIPTION: Middle-age female up in the chair in no distress RESPIRATORY SYSTEM: Unlabored breathing , decreased breath sounds at bases HEART: S1 S2 regular rate and rhythm , ABDOMEN: Soft , no tenderness EXTREMITIES: No edema feet - Labs CBC & Chem 7: 07/16/24 07:10 07/16/24 07:10 Labs: Abnormal Lab Results - Last 24 Hours (Table) 07/16/24 07/16/24 07/16/24 Range/Units 06:16 07:10 07:10 MCHC 30.9 L (31.0-37.0) g/dL Creatinine 0.45 L (0.52-1.04) mg/dL Glucose 116 H (74-99) mg/dL POC Glucose (mg/dL) 117 H (70-110) mg/dL Microbiology - Last 24 Hours (Table) 07/10/24 05:16 Blood Culture - Final Blood Assessment and Plan (1) Sepsis Current Visit: Yes Status: Acute Code(s): A41.9 - SEPSIS, UNSPECIFIED ORGANISM SNOMED Code(s): 86130327 (2) Pneumonia Current Visit: Yes Status: Acute Code(s): J18.9 - PNEUMONIA, UNSPECIFIED ORGANISM SNOMED Code(s): 242290623 (3) MSSA (methicillin susceptible Staphylococcus aureus) infection Current Visit: Yes Status: Acute Code(s): A49.01 - METHICILLIN SUSCEP STAPH INFECTION, UNSP SITE SNOMED Code(s): 151738353 Plan: 1patient presenting the hospital with drug overdose with subsequent agitation respiratory distress requiring intubation concerning for possible aspiration pneumonia sputum is now growing MSSA in this patient who did have features of sepsis with fever elevated white count and hypotension requiring low-dose pressor support on initial evaluation. 2-patient did have resolution of her fever the patient white count normalized blood culture have been negative so far, sputum grew MSSA for the patient completed her Unasyn therapy 3patient vaginal area candidiasis for which the patient has completed course of Eraxis 4groin area candidiasis treated with with nystatin powder twice a day. 5-the patient did have resolution of her fever white normalized, sputum Streptococcus pneumoniae/MSSA 6 patient continue with Rocephin while inpatient however no plan for IV antibiotic on discharge Dictation was produced using [employer] dictation software. please excuse any grammatical, word or spelling errors. Time with Patient: Less than 30
[2024-07-16 18:18] LABS: Glucose,Whole Blood 100 mg/dL (70-110)
[2024-07-17 01:10] LABS: Glucose,Whole Blood 87 mg/dL (70-110)
[2024-07-17 06:16] LABS: Glucose,Whole Blood 92 mg/dL (70-110)
[2024-07-17 11:27] LABS: Glucose,Whole Blood 98 mg/dL (70-110)
--- NOTE | 2024-07-17 12:47 | P.PN ---
Subjective Progress Note Date: 07/17/24 SURGICAL PROGRESS NOTE CHIEF COMPLAINT: Intentional overdose HISTORY OF PRESENT ILLNESS: Patient is postop day #11 status post tracheostomy and PEG tube placement. Patient currently on the cardiac floor. She is undergoing a modified barium swallow with speech therapy. She is tolerating tube feeds at 55 mL/h. She did report feeling a little nauseous this morning. Afebrile. She is on trach collar. PHYSICAL EXAM: VITAL SIGNS: Reviewed. GENERAL: no acute distress. HEENT: Tracheostomy site dry and intact ABDOMEN: Soft. Obese. PEG tube site clean dry and intact ASSESSMENT: 1. Acute respiratory failure s/p intubation to protect airway after patient received significant sedation for agitation from Wellbutrin overdose and had an aspiration pneumonia 2. Severe protein calorie malnutrition 3. Suicide attempt with Wellbutrin overdose PLAN: -Continue tube feeds -Continue supportive care Physician Farrowing Manager note has been reviewed by physician. Signing provider agrees with the documented findings, assessment, and plan of care. Attestation Patient seen and examined at bedside. Status post tracheostomy and PEG tube placement. Tolerating tube feeding and tolerating tracheostomy. Okay for product technician to remove sutures. Sutures at the tracheostomy incision site to be removed in a few days. Patient likely to inpatient rehab per telephonic case manager. Maureen Swanson DO Objective - Vital Signs Vital signs: Vital Signs Temp 98.1 F 07/16/24 19:58 Pulse 98 07/17/24 04:00 Resp 18 07/17/24 04:00 BP 132/72 07/17/24 04:00 Pulse Ox 97 07/17/24 04:00 FiO2 40 07/17/24 11:28 Intake & Output 07/16/24 07/17/24 07/17/24 18:59 06:59 18:59 Output Total 1200 900 Balance -1200 -900 Weight 104.8 kg Output: Urine 1200 900 Other: Voiding Method Indwelling Catheter Indwelling Catheter # Voids 1 ABP, PAP, CO, CI - Last Documented Arterial Blood Pressure 112/61 - Labs CBC & Chem 7: 07/16/24 07:10 07/16/24 07:10
--- NOTE | 2024-07-17 13:09 | FL ---
EXAMINATION TYPE: FL barium swallow w video DATE OF EXAM: 07/17/2024 MODIFIED SWALLOW / DEGLUTITION STUDY CLINICAL HISTORY: Dysphagia. Rule out aspiration. TECHNIQUE: Deglutition study is performed utilizing thin liquid barium, barium thick pudding, and b arium coated cracker. 2.14 minutes of fluoro time and 0 images obtained. Total dose area product (D AP) in uGy*m?, mGy*cm? (or similar): 139.62 COMPARISON: None. FINDINGS: Tracheostomy tube is present. The oral and pharyngeal phases show satisfactory initiation a nd propagation with all modalities tested. Satisfactory mastication is seen with solid modalities celestina gabriella. There is deep penetration with 2 episodes of thin liquid barium during large bolus and contiguo us drinking. Small single bolus shows no penetration. No aspiration with other modalities tested. No significant pharyngeal residue was appreciated. IMPRESSION: No aspiration identified. Please refer to speech therapist notes for further details if necessary. [facility], , 07/17/2024 1:07 PM
[2024-07-17 16:28] LABS: Glucose,Whole Blood 104 mg/dL (70-110)
--- NOTE | 2024-07-17 16:42 | P.PN ---
Subjective Progress Note Date: 07/17/24 28 year old F with PMH of anxiety and borderline personality disorder on Wellbutrin presented after intentional ingestion of Wellbutrin. Patient is psychotic at the time my evaluation does not provide reliable history. According to ER provider signout as well as chart review, patient ingested somewhere between 50-90 extended release Wellbutrin tablets and an overdose attempt. Patient is clearly agitated, tachycardic at the time my evaluation. Upon arrival patient was afebrile, 148/96, heart rate 83. Patient subsequently received activated charcoal, was started on IV fluids, and given a total of 7 mg of Ativan while on continuous telemetry, with heart rates increasing to the 130s to 140s. The ER provider did contact poison control control who recommended medical monitoring until patient is stable for transfer to the mental health unit. Review of lab work shows normal CBC, CO2 of 20, ALT of 91, negative troponin, normal lactic acid, negative salicylate level, alcohol level, Tylenol level. Initial EKG shows normal sinus rhythm with a short WA interval and right axis deviation. Patient was admitted to the cardiac selective floor with telemetry, with low threshold for ICU escalation. Received multiple doses of Ativan + Librium, remained agitated, intubated on 06/27. Concerns for aspiration on 06/28, started on Zosyn with Vancomycin added for staph sputum Cx. IV consulted, switched to Unasyn on 06/29. Eraxis started for Vaginal candidiasis. Completed 4 days of Eraxis and 10 days of Unasyn on 07/08. Started on Zosyn for leukocytosis on 07/10. Concerns for seizures, started on Depakote, Neurology consulted. CT head showed no acute hemorrhage, areas of low-attenuation in the bilateral cerebellar hemisphere slightly more prominent on the right, per neurology, could be artifact. EEG done in was abnormal, showed background slowing suggestive of mild encephalopathy likely due to toxic metabolic derangement as well as medication use, no epileptiform discharges, seizures. Poison control recommended phenobarbital 570 mg IV x1 on 06/29. Continued on Valproic acid 250 mg IV BID. Difficulty with extubation, CTA chest 07/02 showed no PE, multifocal PNA, cardiomegaly with small pleural effusions. Underwent successful Trach/PEG on 07/05. Started on Zosyn for worsening leukocytosis on 07/09. Sputum Cx grew S. pneumonia, antibiotics switched to Rocephin. CT head/C-spine repeated on 07/11, no acute process. Difficulty with placement. Case management on board. 07/17 Patient was seen and examined. No acute events overnight. Sleeping comfortably. Passed MBS, started on NDD3. Vitals BP 126/75, RR 20, T 98.4F, HR 107, 96% on trach collar FiO2 40%. Derm: warm, dry Head: atraumatic, normocephalic, symmetric, tracheostomy Eyes: no lid lag, anicteric sclera Mouth: no lip lesion, mucus membranes moist Cardiovascular: S1S2 tachy, no murmur Lungs: Bilateral rhonchi, no rales , no accessory muscle use Ext: no gross muscle atrophy, no edema, no contractures Neuro: No focal neurologic deficits Psych: Unable to determine + PEG Based on my assessment of this patient, this patient meets a high complexity level of care. Acute respiratory failure s/p intubation for airway protection 06/27: CTA chest negative for PE but does show multifocal PNA with cardiomegaly and small pleural effusions. Status post PEG/Trach 07/05. Sepsis likely secondary to aspiration pneumonia with S. aureus + S. pneumonia Sputum Cx: Completed multiple days of Unasyn, Zosyn and Rocephin. Tylenol 650 mg PO Q6H PRN fever. Elevated HOB. Aspiration precautions. Pulmonary and ID on board. Acute metabolic encephalopathy due to below: CT head 06/29 and 07/11 no acute process. B12 1207. Folate 707. EEG shows encephalopathy with no seizure activity, Valproic acid discontinued by Neurology on 07/09. Seizure precautions. Neurology on board. Intentional overdose with Wellbutrin Iron def anemia: Iron level of 9. Defer IV iron while treating active infection. Monitor Hg. Transfuse if Hg < 7. Constipation: Miralax 17g PO QHS. Lactulose 20g PO QD PRN. Anxiety and Borderline personality disorder: Pyschiatry on board. Resolved: Metabolic acidosis, Hypokalemia, Hypomagnesemia CODE STATUS: FULL CODE. DVT Prophylaxis: Heparin SQ GI Prophylaxis: Protonix IV Designated medical POA if patient is not able to make medical decisions for themselves: I have reviewed the following aerodynamic consultant notes: Surgery, ID I have reviewed the results of the following tests: [facility] [place] ordered the following tests: I have discussed the care of this patient with the following independent historian: RN. Case management. I have independently interpreted the following test below: I have discussed the management of this patient with the following physician: Objective - Vital Signs Vital signs: Vital Signs Temp 98.4 F 07/17/24 16:14 Pulse 107 H 07/17/24 16:14 Resp 20 07/17/24 16:14 BP 126/75 07/17/24 16:14 Pulse Ox 96 07/17/24 16:14 FiO2 40 07/17/24 16:14 Intake & Output 07/16/24 07/17/24 07/17/24 18:59 06:59 18:59 Output Total 1200 900 Balance -1200 -900 Weight 104.8 kg Output: Urine 1200 900 Other: Voiding Method Indwelling Catheter Indwelling Catheter Indwelling Catheter # Voids 1 ABP, PAP, CO, CI - Last Documented Arterial Blood Pressure 112/61 - Labs CBC & Chem 7: 07/16/24 07:10 07/16/24 07:10
--- NOTE | 2024-07-17 17:16 | P.PN ---
Subjective Progress Note Date: 07/17/24 Principal diagnosis: Reason for follow-up is MSSA/aspiration pneumonia Patient is a 28-year-old female with a past medical history of dependent for reflux, anxiety and depression presenting to the hospital after the patient overdosed on 50-90 Wellbutrin tablets subsequent did have a agitation respiratory distress requiring revision admission to the ICU ID consulted because of concern for aspiration pneumonia.The patient is status post tracheostomy and PEG tube placement on 07/05/2024. On today's visit that is 07/17/2024, patient has been afebrile, patient is breat rogerio comfortably and is currently on trach collar, patient denies having any significant cough no chest pain, patient denies nausea vomiting or diarrhea and no abdominal pain. No new lab has been repeated today no aspiration of the barium swallow Objective - Vital Signs Vital signs: Vital Signs Temp 97.5 F L 07/17/24 12:00 Pulse 102 H 07/17/24 12:00 Resp 20 07/17/24 12:00 BP 121/66 07/17/24 12:00 Pulse Ox 96 07/17/24 12:00 FiO2 40 07/17/24 12:00 Intake & Output 07/16/24 07/17/24 07/17/24 18:59 06:59 18:59 Output Total 1200 900 Balance -1200 -900 Weight 104.8 kg Output: Urine 1200 900 Other: Voiding Method Indwelling Catheter Indwelling Catheter Indwelling Catheter # Voids 1 ABP, PAP, CO, CI - Last Documented Arterial Blood Pressure 112/61 - Exam GENERAL DESCRIPTION: Middle-age female up in the chair in no distress RESPIRATORY SYSTEM: Unlabored breathing , decreased breath sounds at bases HEART: S1 S2 regular rate and rhythm , ABDOMEN: Soft , no tenderness EXTREMITIES: No edema feet - Labs CBC & Chem 7: 07/16/24 07:10 07/16/24 07:10 Assessment and Plan (1) Sepsis Current Visit: Yes Status: Acute Code(s): A41.9 - SEPSIS, UNSPECIFIED ORGANISM SNOMED Code(s): 36950835 (2) Pneumonia Current Visit: Yes Status: Acute Code(s): J18.9 - PNEUMONIA, UNSPECIFIED ORGANISM SNOMED Code(s): 751275283 (3) MSSA (methicillin susceptible Staphylococcus aureus) infection Current Visit: Yes Status: Acute Code(s): A49.01 - METHICILLIN SUSCEP STAPH INFECTION, UNSP SITE SNOMED Code(s): 835928904 Plan: 1patient presenting the hospital with drug overdose with subsequent agitation respiratory distress requiring intubation concerning for possible aspiration pneumonia sputum is now growing MSSA in this patient who did have features of sepsis with fever elevated white count and hypotension requiring low-dose pressor support on initial evaluation. 2-patient did have resolution of her fever the patient white count normalized blood culture have been negative so far, sputum grew MSSA for the patient completed her Unasyn therapy 3patient vaginal area candidiasis for which the patient has completed course of Eraxis 4groin area candidiasis treated with with nystatin powder twice a day. 5-the patient did have resolution of her fever white normalized, sputum Streptococcus pneumoniae/MSSA 6 patient slowly clinical improvement on Rocephin can be transitioned to Augmentin on discharge Dictation was produced using [employer] dictation software. please excuse any grammatical, word or spelling errors. Time with Patient: Less than 30
--- NOTE | 2024-07-17 18:37 | P.PN ---
Subjective Progress Note Date: 07/17/24 Principal diagnosis: Acute respiratory failure secondary to Wellbutrin overdose On 07/10/2024, the patient is being seen for a follow-up. The patient is awake and alert and communicating. Overnight, she became slightly more restless and the patient was started on low-dose propofol which is running at 50 mcg/kg/min. This morning, her tracheostomy site is intact. She has a #[address] She is on assist-control mode at rate of 60, tidal volume of 500, FiO2 of 50% with a PEEP of 10. Blood gas showed a pH of 7.46 with a pCO2 of 38 and pO2 113. The patient has a PEG tube for enteral feeding and nutritional support. He is on vital HP at rate of 40 cc an hour. She is having loose liquidy bowel movements. White cell count was elevated at 17.5 with a he moglobin of 13. Based on that, the patient was started empiric antibiotic coverage with IV Zosyn. Chest x-ray from today shows no significant airspace disease or consolidation. There is some persistent left more than right basilar infiltrate/atelectasis possibly some small pleural effusions. Otherwise, her sodium is at 142, potassium level 3.7, bicarbonate 27, BUN is 15 with a creatinine of 0.5. Repeat cultures are still pending. Blood cultures are negative. The patient has a femoral triple-lumen catheter in place. She is on Prozac. Her psychiatric medication needs to be reevaluated by the psychiatrist. She was taking a combination of Pristiq, Wellbutrin and Lamictal on an outpatie nt basis. 07/11/2024, the patient is arousable. She was taken off the propofol and the patient was started on Precedex to control her restlessness and agitation. The patient has done better with Precedex which is currently running at 0.5 mcg/kg/h. She is calm and comfortable and arousable. This morning, she still on the mechanical ventilator. She is on assist-control at rate of 16, tidal volume of 500, FiO2 50% with a PEEP of 5. Blood gas showed a pH of 7.46 with a pCO2 of 39 and pO2 of 78. The patient has excellent weaning parameters. I think her failure to wean is essentially related to increased anxiety and agitation. Based on that, I did contact this patient on the mechanical ve ntilator and put her on trach collar and she was very comfortable on trach collar which is currently at 40%. Her oxygenation is stable. She was having some respiratory secretions and she has an adequate cough. Scopolamine patch was also added. Meanwhile, the follow-up chest x-ray that was done this morning shows some infiltrate in the lung bases/atelectasis left more than right. Tracheostomy is up in the trachea. The white cell count is at 4.4 with a hemoglobin of 10.8 and a platelet count of 182. Sodium is at 140, potassium is at 3.3, BUN 23 and a creatinine of 0.6. The patient was seen by psychiatry. The patient was started on Cymbalta 30 mg p.o. daily and the patient was also started on Lamictal 25 mg p.o. daily. She is profoundly weak yet awake and alert and communicating. No new complaints otherwise for now. On 07/12/2024, the patient remains on Precedex which is running at 0.6 mcg/kg/h. This will be gradually weaned off. Seems to be comfortable on Precedex. Nevertheless, I am concerned that the patient is going to become more anxious and restless while being off Precedex. Meanwhile, Cymbalta dose was increased up to 60 mg p.o. daily. The patient is also on Ativan as needed and Lamictal. In terms of respiratory status, the patient is currently on a trach collar. Sputum sample was positive for Streptococcus pneumonia and the patient remains on IV Zosyn. Noted the patient's white cell count has been improving. Respiratory secretions are still present and the patient was given a scopolamine patch. No significant respiratory distress. She has an adequate cough. She has profound weakness in all 4 extremities. WBC count is at 10.4, hemoglobin of 11 and a platelet count of 144. BUN is 19 with a creatinine of 0.5 and a sodium level is at 138. The platelet counts have been gradually dropping. Meanwhile, the patient continues to be on enteral feeding for nutritional support and she is on vital HP at rate of 55 cc an hour. No other significant events overnight. On 07/13/2024, the patient is being seen for a follow-up. The patient is awake a nd alert and communicating and the patient is currently off Precedex. She is on a 35% trach collar. No significant shortness of breath. Respiratory changes are less. Sputum sample was positive for strep pneumo and a follow-up chest x- ray from today shows atelectatic change in lung bases persistent pulm vascular congestion. The patient denies having any significant respiratory distress. She has a solid tracheostomy tube in place. She continues to receive enteral feeding for nutritional support and the patient is currently on vital HP at rate of 35 cc an hour. The WBC count is 11.3, hemoglobin 12.7 and a platelet count of 190. BUN is 50 mg and 0.35 and sodium levels at 139 and a potassium level is at 4.7. No other significant events overnight. On 07/14/2024, the patient is emotional and she is having crying episodes. As she was trying to reach to her push button, the patient had a fall without any major damages. No head trauma. No body trauma. She was transferred out of the intensive care unit yesterday. The patient has a tracheostomy and the patient is currently on 40% trach collar. Respiratory secretions are improving. Chest x-ray showing atelectatic changes in the right lung base. The white cell count of 9.3 with a heme of 13.6. The sputum sample was positive for strep and the patient is currently on IV Rocephin. Sodium is at 140, BUN 16 with a creatinine of 0.4. No other significant events otherwise for now. The patient was transferred out of the intensive care unit yesterday. On 07/15/2024, the patient's condition is stable. She has a tracheostomy tube in place and the patient is currently on a 40% trach collar. No significant respiratory secretions. No respiratory distress. She is also receiving enteral feeding for nutritional support. She should be able to swallow radiation. I am considering some oral intake for this patient. WBC count is at 10 hemoglobin 13.6 and a platelet count of 282. Electrolytes are all within normal limits. Medications are essentially unchanged. The patient remains on IV Rocephin for a strep/staph/MSSA in the sputum. Seen today on , patient continues to have trach collar in place, at 40% FiO2, she has more secretions today, and I was considering to start capping her tracheostomy, however because of her secretions I will continue to keep the tracheostomy in place. Patient passed her swallow evaluation, and her diet will be increased gradually. Patient remains on antibiotics for her strep/staph MSSA in the sputum. No labs were drawn today. Patient seems to be doing reasonably well. Objective - Vital Signs Vital signs: Vital Signs Temp 98.4 F 07/17/24 16:14 Pulse 107 H 07/17/24 16:14 Resp 20 07/17/24 16:14 BP 126/75 07/17/24 16:14 Pulse Ox 96 07/17/24 16:14 FiO2 40 07/17/24 16:14 Intake & Output 07/16/24 07/17/24 07/17/24 18:59 06:59 18:59 Intake Total 770 Output Total 1200 900 Balance -1200 -900 770 Weight 104.8 kg Intake: IV 50 cefTRIAXone 2 gm In 50 Sodium Chloride 0.9% 50 ml @ 100 mls/hr IVPB Q24HR [facility] Rx#:[id number] Tube Feeding 720 Output: Urine 1200 900 Other: Voiding Method Indwelling Catheter Indwelling Catheter Indwelling Catheter # Voids 1 1 ABP, PAP, CO, CI - Last Documented Arterial Blood Pressure 112/61 - Exam Gen: Revealed a 28-year-old female obese on trach collar, and not in distress. Head: Atraumatic normocephalic HEENT: PERRLA, EOMI, nonicteric no neck masses no JVD, tracheostomy is intact CVS: Distant S1-S2, no S3 gallop, 2/6 systolic murmur throughout the precordium Respiratory: Clear bilaterally no rhonchi no wheezes GI: Obese, soft nontender no rebound no guarding, positive bowel sounds. : no suprapubic tenderness, no CVA tenderness MSK/Derm: No rashes. Skin is dry. And warm Neuro: Alert oriented x 3 no gross focal deficit Psych: Normal mood affect and no mental status examination. - Labs CBC & Chem 7: 07/16/24 07:10 07/16/24 07:10 Assessment and Plan Assessment: Impression: Acute respiratory failure, secondary to Wellbutrin overdose, patient had a prolonged ICU course requiring prolonged course of mechanical ventilation and she was a failure to wean requiring tracheostomy continues to have tracheostomy in place and now she is on trach collar Bilateral pneumonia secondary to Streptococcus and MSSA Borderline personality disorder Suicidal attempt Aspiration pneumonia Sepsis secondary to aspiration pneumonia Generalized anxiety disorder Recommendation: Continue trach collar Continue suctioning of secretions Continue antibiotics Reviewed the results of her swallow evaluation Consider placement Will continue to follow Time with Patient: Less than 30
[2024-07-17 23:13] LABS: Glucose,Whole Blood 81 mg/dL (70-110)
[2024-07-18 06:10] LABS: Glucose,Whole Blood 99 mg/dL (70-110)
--- NOTE | 2024-07-18 10:44 | P.PN ---
Subjective Progress Note Date: 07/17/24 07/17/2024: Patient was seen for follow-up. Patient's mother and a friend were present by the bedside. Patient has remarkably improved. Patient is very pleasant. She is trying to speak through her tracheostomy. And is responding appropriately. Please refer to examination below. No seizures reported. 07/07/2024: Patient was seen for follow-up. Patient is opening her eyes, but severely encephalopathic. Does not make eye contact, does not track. Does not blink to visual threat. Per nurse report, she has episodes of profuse crying, sobbing. Patient is not following any commands. 07/06/2024: Patient was seen for follow-up. Patient had undergone tracheostomy and PEG tube placement yesterday. At present patient is on propofol 50 mcg/kg per minute, also on Versed 4 mg per hour. Patient is still sedated/comatose. 07/04/2024: Patient was seen for a follow-up. Patient is essentially unchanged. Still on propofol 75, fentanyl 1.5, Versed 15. Patient is off Nimbex. Per leana se report, after the Nimbex was discontinued, patient started becoming restless, and then desaturated. She was on propofol 50 mcg but then the dose was increased to 75 mcg along with higher dose of fentanyl and Versed. No seizure- like activity noticed. 07/03/2024: Patient was seen for a follow-up. Patient is essentially unchanged. Still on propofol 50, fentanyl 0.5, Versed 11 and Nimbex 1.5. No seizure-like activity. 07/02/2024: Patient initially seen by Dr. Jose Angel Mccoy. Please refer to his note for details. Patient is a 28-year-old female came with Wellbutrin overdose. Ingested at least 50 tablets of Wellbutrin. Patient had seizure-like activity and is on Depakote, maxed on Versed and propofol. 2 EEGs have been negative. Patient was seen for follow-up. Patient continues to be intubated, sedated on propofol 50 mcg/kg/min. Also on fentanyl 0.5 mcg/kg/h and Versed 11 mg/h. Patient also on Nimbex 1 mg/kg/min. Per nursing report, patient became acutely agitated, tried to sit up, vomited, and then aspirated really bad. Patient is on antibiotics. No seizure-like activity has been noticed since patient is on Depakote. Patient is on maximal dose of Versed and propofol. Patient is also on thiamine 100 mg IV daily. Patient was given phenobarbital x 1 dose as recommended by the poison control. Some of the workup at this hospital visit consisted of: White blood cell is within normal limits Level is for 96 Calcium is 6.1 and ionized calcium is 4.7 Magnesium is 1.2 POC glucose is 56 and repeated is in the low 100s. Sodium is within normal limits UDS is positive for benzo as well as marijuana. Routine EEG on 06/26/2024: Is abnormal. The background slowing is suggestive of mild encephalopathy likely due to toxic-metabolic derragement as well as medication use (IV Propofol, Versed and Ativan). Otherwise, no focal slowing, epileptiform discharges or seizures. CT head: No acute intracranial hemorrhage or midline shift is seen. Vauge areas of low attenuation in the bilateral cerebellar hemispheres slightly more prominent on the right are identified. Ischemic injury is in the differential. Other etiologies not excluded. I personally reviewed CT and I personally could not rule out artifact as well. Repeat CT of the head is reported as no acute intracranial process. No signific ant interval change from the comparison. Repeat EEG: Is abnormal. The background slowing is suggestive of severe encephalopathy. Severe encephalopathy is likely due to toxic metabolic derangement as well as medication induced. The diffuse suppression is likely due to medication induced (Versed as well as Ativan and propofol). Otherwise there is no focal slowing, OptiForm discharge or seizure on the EEG. Patient probably Objective - Vital Signs Vital signs: Vital Signs Temp 98.4 F 07/17/24 16:14 Pulse 107 H 07/17/24 16:14 Resp 20 07/17/24 16:14 BP 126/75 07/17/24 16:14 Pulse Ox 96 07/17/24 16:14 FiO2 40 07/17/24 16:14 Intake & Output 07/17/24 07/17/24 07/18/24 06:59 18:59 06:59 Intake Total 770 Output Total 900 Balance -900 770 Weight 104.8 kg Intake: IV 50 cefTRIAXone 2 gm In 50 Sodium Chloride 0.9% 50 ml @ 100 mls/hr IVPB Q24HR [facility] Rx#:[id number] Tube Feeding 720 Output: Urine 900 Other: Voiding Method Indwelling Catheter Indwelling Catheter # Voids 1 1 ABP, PAP, CO, CI - Last Documented Arterial Blood Pressure 112/61 - Exam Patient has tracheostomy. Patient is fully alert and awake. She is smiling. Fully interactive. She has hypophonic voice due to having tracheostomy. She is otherwise speaking very appropriately. She knows it is July and the year is 2024 and that she is in [facility] imported on [place]. Pupils are equal, round and reacting visual alex are full, and face is symmetric. Patient has right wrist drop, with right wrist extension 3+, right finger extension 2, normal biceps, triceps and deltoid. The strength is normal in the left upper limb. This is likely due to laying on the right side for prolonged period of time, likely prior to arrival to the hospital. Reflexes are 2+ at the knees. - Labs CBC & Chem 7: 07/16/24 07:10 07/16/24 07:10 Assessment and Plan Assessment: This is a 28-year-old woman with a history of borderline personality disorder who presented emergency department because of a suicidal attempt by taking multiple Wellbutrin tablets. Questionable few episode of seizure-like activity: Likely due to drug overdose. Multiple EEGs normal in the recent admission. Metabolic encephalopathy, resolved. Patient's mentation back to normal. Status post tracheostomy and PEG tube placement 07/05/2024 Suicidal attempt Depression Hypoglycemia Hypomagnesium History of borderline personality disorder Plan: * Patient is doing remarkably well. * EEG 07/07/2024 was abnormal due to presence of sporadic intermittent frontal rhythmic delta activity. This may suggest underlying encephalopathy. Otherwise the background appears to be normal. When compared to the EEG from 07/04/2024, the background has remarkably improved. No epileptiform activity was seen. * Patient never had any epileptiform activity seen on the EEG. Patient is off Depakote. * Repeat CT head performed on 06/29/2024, which revealed no acute intracranial process. * EEG 07/04/2024 was abnormal due to background slowing of moderate to severe degree. This is suggestive of generalized cerebral dysfunction as can be seen with toxic metabolic encephalopathy or related to diffuse structural brain abnormality. Clinical correlation is recommended. No obvious epileptiform activity was seen. When compared to the EEG from 06/29/2024, the intermittent background suppression seen in the previous study has resolved, but now has replaced with diffuse high amplitude theta and delta slowing as mentioned above. Follow-up EEG recommended, if clinically indicated. * Seizure precaution and pads * Psychiatry is consulted * Please avoid any further hypoglycemia and will defer correction of the electrolyte imbalance to primary and ICU team. * Will defer the rest of the medical management to primary other specialist * Patient is status post tracheostomy and PEG tube placement 07/05/2024. * Patient has right wrist drop, likely because of laying on the right side for prolonged period of time. This likely happened prior to arrival to the hospital. Informed her that this is likely related to radial nerve compression at the radial groove. Avoid further compression in the upper arm. No blood pressure testing in the right upper limb. No prolonged laying on the right side. This hopefully will improve. If symptoms persist, may need EMG as an outpatient. * PT/OT. Neurologically clear for transfer to inpatient rehab.
[2024-07-18 12:08] LABS: Glucose,Whole Blood 106 mg/dL (70-110)
--- NOTE | 2024-07-18 12:46 | P.PN ---
Subjective Progress Note Date: 07/18/24 SURGICAL PROGRESS NOTE CHIEF COMPLAINT: Intentional overdose HISTORY OF PRESENT ILLNESS: Patient is postop day #12 status post tracheostomy and PEG tube placement. Patient currently on the cardiac floor. Respiratory therapist did remove sutures from tracheostomy. Patient is on a trach collar. She sitting up in bed. She is able to eat a small amount of regular diet. She is tolerating tube feeds. PHYSICAL EXAM: VITAL SIGNS: Reviewed. GENERAL: no acute distress. HEENT: Tracheostomy site clean, dry and intact ABDOMEN: Soft. Obese. PEG tube site clean dry and intact ASSESSMENT: 1. Acute respiratory failure s/p intubation to protect airway after patient received significant sedation for agitation from Wellbutrin overdose and had an aspiration pneumonia 2. Severe protein calorie malnutrition 3. Suicide attempt with Wellbutrin overdose PLAN: -Continue tube feeds -Continue supportive care -At time of discharge shoe caser is looking into possible inpatient rehab Physician Mid Level Project Manager note has been reviewed by physician. Signing provider agrees with the documented findings, assessment, and plan of care. Attestation Patient seen and examined at bedside. Status post tracheostomy and PEG tube placement. Tolerating tube feeding and tolerating tracheostomy. Okay for prosthetics technician to remove sutures. Sutures at the tracheostomy incision site to be removed in a few days. Patient likely to inpatient rehab per shoe caser. Maureen Swanson DO Objective - Vital Signs Vital signs: Vital Signs Temp 98.6 F 07/18/24 04:45 Pulse 109 H 07/18/24 08:10 Resp 20 07/18/24 08:10 BP 123/56 07/18/24 08:10 Pulse Ox 95 07/18/24 08:10 FiO2 40 07/18/24 09:38 Intake & Output 07/17/24 07/18/24 07/18/24 18:59 06:59 18:59 Intake Total 770 Balance 770 Weight 105.5 kg Intake: IV 50 cefTRIAXone 2 gm In 50 Sodium Chloride 0.9% 50 ml @ 100 mls/hr IVPB Q24HR [facility] Rx#:[id number] Tube Feeding 720 Other: Voiding Method Indwelling Catheter Indwelling Catheter # Voids 1 2 ABP, PAP, CO, CI - Last Documented Arterial Blood Pressure 112/61 - Labs CBC & Chem 7: 07/16/24 07:10 07/16/24 07:10
--- NOTE | 2024-07-18 12:48 | P.PN ---
Subjective Progress Note Date: 07/18/24 28 year old F with PMH of anxiety and borderline personality disorder on Wellbutrin presented after intentional ingestion of Wellbutrin. Patient is psychotic at the time my evaluation does not provide reliable history. According to ER provider signout as well as chart review, patient ingested somewhere between 50-90 extended release Wellbutrin tablets and an overdose attempt. Patient is clearly agitated, tachycardic at the time my evaluation. Upon arrival patient was afebrile, 148/96, heart rate 83. Patient subsequently received activated charcoal, was started on IV fluids, and given a total of 7 mg of Ativan while on continuous telemetry, with heart rates increasing to the 130s to 140s. The ER provider did contact poison control control who recommended medical monitoring until patient is stable for transfer to the mental health unit. Review of lab work shows normal CBC, CO2 of 20, ALT of 91, negative troponin, normal lactic acid, negative salicylate level, alcohol level, Tylenol level. Initial EKG shows normal sinus rhythm with a short OH interval and right axis deviation. Patient was admitted to the cardiac selective floor with telemetry, with low threshold for ICU escalation. Received multiple doses of Ativan + Librium, remained agitated, intubated on 06/27. Concerns for aspiration on 06/28, started on Zosyn with Vancomycin added for staph sputum Cx. IV consulted, switched to Unasyn on 06/29. Eraxis started for Vaginal candidiasis. Completed 4 days of Eraxis and 10 days of Unasyn on 07/08. Started on Zosyn for leukocytosis on 07/10. Concerns for seizures, started on Depakote, Neurology consulted. CT head showed no acute hemorrhage, areas of low-attenuation in the bilateral cerebellar hemisphere slightly more prominent on the right, per neurology, could be artifact. EEG done in was abnormal, showed background slowing suggestive of mild encephalopathy likely due to toxic metabolic derangement as well as medication use, no epileptiform discharges, seizures. Poison control recommended phenobarbital 570 mg IV x1 on 06/29. Continued on Valproic acid 250 mg IV BID. Difficulty with extubation, CTA chest 07/02 showed no PE, multifocal PNA, cardiomegaly with small pleural effusions. Underwent successful Trach/PEG on 07/05. Started on Zosyn for worsening leukocytosis on 07/09. Sputum Cx grew S. pneumonia, antibiotics switched to Rocephin. CT head/C-spine repeated on 07/11, no acute process. Difficulty with placement. Case management on board. 07/18 Patient was seen and examined. No acute events overnight. She reports no complaints. Mentation significantly improved since last week. Passed MBS, started on NDD3, but reports poor appetite. Vitals BP 123/56, RR 20, T 98.6F, HR 109, 95% on trach collar FiO2 40%. Derm: warm, dry Head: atraumatic, normocephalic, symmetric, tracheostomy Eyes: no lid lag, anicteric sclera Mouth: no lip lesion, mucus membranes moist Cardiovascular: S1S2 tachy, no murmur Lungs: Bilateral rhonchi, no rales , no accessory muscle use Ext: no gross muscle atrophy, no edema, no contractures Neuro: No focal neurologic deficits Psych: Unable to determine + PEG Based on my assessment of this patient, this patient meets a high complexity level of care. Acute respiratory failure s/p intubation for airway protection 06/27: CTA chest negative for PE but does show multifocal PNA with cardiomegaly and small pleural effusions. Status post PEG/Trach 07/05. Sepsis likely secondary to aspiration pneumonia with S. aureus + S. pneumonia Sputum Cx: Completed multiple days of Unasyn, Zosyn and Rocephin. Tylenol 650 mg PO Q6H PRN fever. Elevated HOB. Aspiration precautions. Pulmonary and ID on board. Acute metabolic encephalopathy due to below: CT head 06/29 and 07/11 no acute process. B12 1207. Folate 707. EEG shows encephalopathy with no seizure activity, Valproic acid discontinued by Neurology on 07/09. Seizure precautions. Neurology on board. Intentional overdose with Wellbutrin Iron def anemia: Iron level of 9. Defer IV iron while treating active infection. Monitor Hg. Transfuse if Hg < 7. Constipation: Miralax 17g PO QHS. Lactulose 20g PO QD PRN. Anxiety and Borderline personality disorder: Pyschiatry on board. Resolved: Metabolic acidosis, Hypokalemia, Hypomagnesemia IPR consulted for possible inpatient rehab. CODE STATUS: FULL CODE. DVT Prophylaxis: Heparin SQ GI Prophylaxis: Protonix IV Designated medical POA if patient is not able to make medical decisions for themselves: I have reviewed the following research consultant notes: Surgery I have reviewed the results of the following tests: I have ordered the following tests: I have discussed the care of this patient with the following independent historian: I have independently interpreted the following test below: I have discussed the management of this patient with the following physician: Objective - Vital Signs Vital signs: Vital Signs Temp 98.6 F 07/18/24 04:45 Pulse 109 H 07/18/24 08:10 Resp 20 07/18/24 08:10 BP 123/56 07/18/24 08:10 Pulse Ox 95 07/18/24 08:10 FiO2 40 07/18/24 09:38 Intake & Output 07/17/24 07/18/24 07/18/24 18:59 06:59 18:59 Intake Total 770 Balance 770 Weight 105.5 kg Intake: IV 50 cefTRIAXone 2 gm In 50 Sodium Chloride 0.9% 50 ml @ 100 mls/hr IVPB Q24HR [facility] Rx#:[id number] Tube Feeding 720 Other: Voiding Method Indwelling Catheter Indwelling Catheter # Voids 1 2 ABP, PAP, CO, CI - Last Documented Arterial Blood Pressure 112/61 - Labs CBC & Chem 7: 07/16/24 07:10 07/16/24 07:10
--- NOTE | 2024-07-18 15:12 | P.PN ---
Subjective Progress Note Date: 07/18/24 Principal diagnosis: Acute respiratory failure secondary to Wellbutrin overdose On 07/10/2024, the patient is being seen for a follow-up. The patient is awake and alert and communicating. Overnight, she became slightly more restless and the patient was started on low-dose propofol which is running at 50 mcg/kg/min. This morning, her tracheostomy site is intact. She has a #[address] She is on assist-control mode at rate of 60, tidal volume of 500, FiO2 of 50% with a PEEP of 10. Blood gas showed a pH of 7.46 with a pCO2 of 38 and pO2 113. The patient has a PEG tube for enteral feeding and nutritional support. He is on vital HP at rate of 40 cc an hour. She is having loose liquidy bowel movements. White cell count was elevated at 17.5 with a he moglobin of 13. Based on that, the patient was started empiric antibiotic coverage with IV Zosyn. Chest x-ray from today shows no significant airspace disease or consolidation. There is some persistent left more than right basilar infiltrate/atelectasis possibly some small pleural effusions. Otherwise, her sodium is at 142, potassium level 3.7, bicarbonate 27, BUN is 15 with a creatinine of 0.5. Repeat cultures are still pending. Blood cultures are negative. The patient has a femoral triple-lumen catheter in place. She is on Prozac. Her psychiatric medication needs to be reevaluated by the psychiatrist. She was taking a combination of Pristiq, Wellbutrin and Lamictal on an outpatie nt basis. 07/11/2024, the patient is arousable. She was taken off the propofol and the patient was started on Precedex to control her restlessness and agitation. The patient has done better with Precedex which is currently running at 0.5 mcg/kg/h. She is calm and comfortable and arousable. This morning, she still on the mechanical ventilator. She is on assist-control at rate of 16, tidal volume of 500, FiO2 50% with a PEEP of 5. Blood gas showed a pH of 7.46 with a pCO2 of 39 and pO2 of 78. The patient has excellent weaning parameters. I think her failure to wean is essentially related to increased anxiety and agitation. Based on that, I did contact this patient on the mechanical ve ntilator and put her on trach collar and she was very comfortable on trach collar which is currently at 40%. Her oxygenation is stable. She was having some respiratory secretions and she has an adequate cough. Scopolamine patch was also added. Meanwhile, the follow-up chest x-ray that was done this morning shows some infiltrate in the lung bases/atelectasis left more than right. Tracheostomy is up in the trachea. The white cell count is at 4.4 with a hemoglobin of 10.8 and a platelet count of 182. Sodium is at 140, potassium is at 3.3, BUN 23 and a creatinine of 0.6. The patient was seen by psychiatry. The patient was started on Cymbalta 30 mg p.o. daily and the patient was also started on Lamictal 25 mg p.o. daily. She is profoundly weak yet awake and alert and communicating. No new complaints otherwise for now. On 07/12/2024, the patient remains on Precedex which is running at 0.6 mcg/kg/h. This will be gradually weaned off. Seems to be comfortable on Precedex. Nevertheless, I am concerned that the patient is going to become more anxious and restless while being off Precedex. Meanwhile, Cymbalta dose was increased up to 60 mg p.o. daily. The patient is also on Ativan as needed and Lamictal. In terms of respiratory status, the patient is currently on a trach collar. Sputum sample was positive for Streptococcus pneumonia and the patient remains on IV Zosyn. Noted the patient's white cell count has been improving. Respiratory secretions are still present and the patient was given a scopolamine patch. No significant respiratory distress. She has an adequate cough. She has profound weakness in all 4 extremities. WBC count is at 10.4, hemoglobin of 11 and a platelet count of 144. BUN is 19 with a creatinine of 0.5 and a sodium level is at 138. The platelet counts have been gradually dropping. Meanwhile, the patient continues to be on enteral feeding for nutritional support and she is on vital HP at rate of 55 cc an hour. No other significant events overnight. On 07/13/2024, the patient is being seen for a follow-up. The patient is awake a nd alert and communicating and the patient is currently off Precedex. She is on a 35% trach collar. No significant shortness of breath. Respiratory changes are less. Sputum sample was positive for strep pneumo and a follow-up chest x- ray from today shows atelectatic change in lung bases persistent pulm vascular congestion. The patient denies having any significant respiratory distress. She has a solid tracheostomy tube in place. She continues to receive enteral feeding for nutritional support and the patient is currently on vital HP at rate of 35 cc an hour. The WBC count is 11.3, hemoglobin 12.7 and a platelet count of 190. BUN is 50 mg and 0.35 and sodium levels at 139 and a potassium level is at 4.7. No other significant events overnight. On 07/14/2024, the patient is emotional and she is having crying episodes. As she was trying to reach to her push button, the patient had a fall without any major damages. No head trauma. No body trauma. She was transferred out of the intensive care unit yesterday. The patient has a tracheostomy and the patient is currently on 40% trach collar. Respiratory secretions are improving. Chest x-ray showing atelectatic changes in the right lung base. The white cell count of 9.3 with a heme of 13.6. The sputum sample was positive for strep and the patient is currently on IV Rocephin. Sodium is at 140, BUN 16 with a creatinine of 0.4. No other significant events otherwise for now. The patient was transferred out of the intensive care unit yesterday. On 07/15/2024, the patient's condition is stable. She has a tracheostomy tube in place and the patient is currently on a 40% trach collar. No significant respiratory secretions. No respiratory distress. She is also receiving enteral feeding for nutritional support. She should be able to swallow radiation. I am considering some oral intake for this patient. WBC count is at 10 hemoglobin 13.6 and a platelet count of 282. Electrolytes are all within normal limits. Medications are essentially unchanged. The patient remains on IV Rocephin for a strep/staph/MSSA in the sputum. Seen today on , patient continues to have trach collar in place, at 40% FiO2, she has more secretions today, and I was considering to start capping her tracheostomy, however because of her secretions I will continue to keep the tracheostomy in place. Patient passed her swallow evaluation, and her diet will be increased gradually. Patient remains on antibiotics for her strep/staph MSSA in the sputum. No labs were drawn today. Patient seems to be doing reasonably well. Patient was evaluated today on 07/18/2024, patient is doing great, relatively asymptomatic, continues to have tracheostomy in place, patient has a fenestrated tracheostomy, however after evaluating the tracheostomy, I felt that the patient has good cough, she does not have much secretions, she is able to her clear her secretions quite well, hence I recommended removing and decannulation of the tracheostomy itself. This was done at bedside, uneventfully, and patient was placed on nasal cannula, patient maintained O2 saturation in the range of 96% on 4 L nasal cannula. Patient is able to talk without any difficulty after applying pressure on the tracheostomy site. Labs today were reviewed she had basically a blood sugar of 106 otherwise no other labs noted patient passed her swallow evaluation yesterday. Objective - Vital Signs Vital signs: Vital Signs Temp 98.6 F 07/18/24 04:45 Pulse 109 H 07/18/24 08:10 Resp 20 07/18/24 08:10 BP 123/56 07/18/24 08:10 Pulse Ox 95 07/18/24 08:10 FiO2 40 07/18/24 09:38 Intake & Output 07/17/24 07/18/24 07/18/24 18:59 06:59 18:59 Intake Total 770 Balance 770 Weight 105.5 kg Intake: IV 50 cefTRIAXone 2 gm In 50 Sodium Chloride 0.9% 50 ml @ 100 mls/hr IVPB Q24HR [facility] Rx#:[id number] Tube Feeding 720 Other: Voiding Method Indwelling Catheter Indwelling Catheter # Voids 1 2 1 # Bowel Movements 1 ABP, PAP, CO, CI - Last Documented Arterial Blood Pressure 112/61 - Exam Gen: Revealed a 28-year-old female obese on trach collar, and not in distress. Head: Atraumatic normocephalic HEENT: PERRLA, EOMI, nonicteric no neck masses no JVD, tracheostomy is intact CVS: Distant S1-S2, no S3 gallop, 2/6 systolic murmur throughout the precordium Respiratory: Clear bilaterally no rhonchi no wheezes GI: Obese, soft nontender no rebound no guarding, positive bowel sounds. : no suprapubic tenderness, no CVA tenderness MSK/Derm: No rashes. Skin is dry. And warm Neuro: Alert oriented x 3 no gross focal deficit Psych: Normal mood affect and no mental status examination. - Labs CBC & Chem 7: 07/16/24 07:10 07/16/24 07:10 Assessment and Plan Assessment: Impression: Acute respiratory failure, secondary to Wellbutrin overdose, patient had a prolonged ICU course requiring prolonged course of mechanical ventilation and she was a failure to wean requiring tracheostomy continues to have tracheostomy in place and now she is on trach collar Bilateral pneumonia secondary to Streptococcus and MSSA Borderline personality disorder Suicidal attempt Aspiration pneumonia Sepsis secondary to aspiration pneumonia Generalized anxiety disorder Recommendation: Decannulation of tracheostomy was done today and 4 x 4 dressing placed at the tracheostomy site Continue antibiotics, as per ID on the case. Reviewed the results of her swallow evaluation patient passed her swallow evalu ation, Consider placement/rehab. Will continue to follow Time with Patient: Greater than 30
--- NOTE | 2024-07-18 15:34 | P.CONS ---
History of Present Illness - Reason for Consult Consult date: 07/18/24 rehab recommendations - Chief Complaint debility - History of Present Illness Ms Guerrero is a 28 y/o right handed female who lives with a friend in a mobile home, 3 bety with HR. Prior to admission, patient was independent with mobility and ADLs. She does not drive, family or friends drive. Patient presented to [facility] on 06/25/24 for a reported overdose. Patient made comments of not wanting to live like this anymore, took 50-90 Wellbutrin tablets. She has had past psychiatric admissions. She received activated charcoal. She developed tachycardia, hypertension and agitation. She was given Ativan, Benadryl, Haldol. She required 4 point restraints and she was intubated for airway protection. There were concerns for seizure like activity, EEG was negative. She was treated for hypoglycemia. CT head ordered, no acute process. Psych consulted. She developed a fear, WBC elevated, Sputum with Staph aureus. She was started on Abx, ID consulted. Attempts were made to wean the patient from the ventilator but were unsuccessful. Surgical team consulted for trach and peg placement which was completed on 07/06/24. She was treated for vaginal/groin candidiasis. Per Psych notes, patient reports she was not trying to kill herself but was just trying to numb the emotions. She did call her friend for help after taking the medication. Patient has progressed with eating, on Mech soft and thin liquid diet. PM&R consulted for rehab recommendations. Patient was seen by therapies on 07/13- 07/14 needing min A with gait 5 ft, Max A with ADLs. Per patient she was seen by therapies today, needing some assistance with walker management as well as her oxygen, walking close to 90 ft with walker, able to move in the bed unassisted, SBA with transfers and ADLs. 07/18: Patient states she is feeling better but still very weak and shaky. She was decannulated today. Her voice is still weak, has some coughing. She is still having some issues with swallowing. She is on tube feeds at well. She denies CP, gets abdominal discomfort with tube feeding. Her right wrist is weak and her hand feels like pins and needles which is new. She has SOB with exertion. She had a BM today, painful. Review of Systems ROS reviewed, negative unless noted above in HPI Past Medical History Past Medical History: No Reported History, GERD/Reflux Additional Past Medical History / Comment(s): Does not take any meds for reflux at this time. History of Any Multi-Drug Resistant Organisms: None Reported Past Surgical History: No Surgical Hx Reported Past Anesthesia/Blood Transfusion Reactions: No Reported Reaction Past Psychological History: Depression Smoking Status: Never smoker Past Alcohol Use History: None Reported Past Drug Use History: Marijuana - Past Family History Mother Family Medical History: Hypertension Additional Family Medical History / Comment(s): Bipolar, depression, and bleeding ulcers. Father Family Medical History: Cancer Additional Family Medical History / Comment(s): of pancreatic cancer. Medications and Allergies Home Medications Medication Instructions Recorded Confirmed Type Desvenlafaxine [Pristiq ER] 100 mg PO DAILY 06/25/24 06/25/24 History Famotidine [Pepcid] 20 mg PO BID 06/25/24 06/25/24 History Propranolol HCl 10 mg PO DAILY PRN 06/25/24 06/25/24 History buPROPion XL [Wellbutrin XL] 150 mg PO DAILY 06/25/24 06/25/24 History lamoTRIgine 200 mg PO DAILY 06/25/24 06/25/24 History Allergies Allergy/AdvReac Type Severity Reaction Status Date / Time adhesive Allergy Rash/Hives Verified 06/25/24 14:54 Physical Exam Vitals: Vital Signs Temp Pulse Pulse Pulse Resp BP BP 07/18/24 09:38 07/18/24 08:10 95 80 109 H 20 123/56 07/18/24 04:45 98.6 F 85 20 111/78 07/18/24 04:11 07/17/24 23:04 98.5 F 90 20 108/74 07/17/24 20:03 07/17/24 19:47 98.1 F 91 16 107/68 07/17/24 16:14 98.4 F 107 H 20 126/75 07/17/24 12:00 97.5 F L 102 H 20 121/66 Pulse Ox FiO2 07/18/24 09:38 40 07/18/24 08:10 95 40 07/18/24 04:45 97 40 07/18/24 04:11 40 07/17/24 23:04 97 40 07/17/24 20:03 40 07/17/24 19:47 95 40 07/17/24 16:14 96 40 07/17/24 12:00 96 40 Intake and Output 07/17/24 07/18/24 07/18/24 22:59 06:59 14:59 Intake Total 770 Balance 770 Intake: IV 50 cefTRIAXone 2 gm In 50 Sodium Chloride 0.9% 50 ml @ 100 mls/hr IVPB Q24HR [facility] Rx#:[id number] Tube Feeding 720 Other: Voiding Method Indwelling Catheter Indwelling Catheter # Voids 1 2 Weight 105.5 kg General: WDWN young female, alert, NAD, laying in bed HEENT: head normocephalic, atraumatic; moist mucous membranes, glasses on, external ears intact with hearing intact to conversational speech CV: No acute cardiac distress Lungs: even and non labored respirations on O2 via NC, + cough, tracheostomy site covered Abdomen: soft, NT, ND, peg tube MSK: full ROM bilateral UE and LEs althrough generalized weakness, right wrist drop MMT: B/L SABD 4/5, EF and EE 4-4+5 with encouragement, R WE 4-/5 and HG /5, unable to perform Right FABD; L WE 4+/5, FABD and HG 4/5 B/L HF and KE 4/5, DF 4/5 Neuro: MSR: 2/4 bilateral biceps,brachioradialis, Achilles. 0/4 patella CN 2-12 grossly intact Sensation intact to light touch bilateral UE and LEs except right hand decreased to light touch Coordination: HTS WFL bilaterally Psych: mood calm, affect appropriate, A&O x 4 Extremities: calves supple, non tender, no LE edema Skin: intact where exposed, tracheostomy site covered, peg tube Results CBC & Chem 7: 07/16/24 07:10 07/16/24 07:10 Assessment and Plan Assessment: #Critical Illness Myopathy secondary to prolonged hospitalization with AHRF requiring mechanical ventilation s/p trach and peg -therapies -07/18 patient still quite weak with exam, poor endurance, was decannulated today. On O2 and peg tube feeds still #AHRF requiring mechanical ventilation s/p trach # Right wrist drop #Right hand paresthesias -07/18 discussed with patient, will start Gabapentin at night #Bilateral Pna secondary to streptococcus and MSSA -on abx #Suspected aspiration pneumonia # Suicide attempt vs Intentional overdose #Severe toxic metabolic encephalopathy, resolved #Protein calorie malnutrition s/p peg tube #Vaginal candidiasis #Borderline Personality Disorder -Lamictal #Anxiety -Ativan prn #marijuana use #Comorbidities: GERD #Pain Management -Tylenol Q6 prn, Dilaudid IV prn, recommend d/c IV pain medications before transfer to [facility]. # DVT Proph- Heparin SQ # Your medical dx and management Dispo: Patient is performing below her baseline level of function. She is motivated and willing to participate in the 3 hrs of therapy per day with IPR. She requires close monitoring by PM&R, IM, rehab nursing, PT/OT/CLOTHING SUPERVISOR. She will need authorization for IPR. Discussed with Liaison at [facility]. Patient seen and examined in collaboration with Dr Kelly Thank you for consulting our services.
--- NOTE | 2024-07-18 15:35 | P.PN ---
Subjective Progress Note Date: 07/18/24 Principal diagnosis: Reason for follow-up is MSSA/aspiration pneumonia Patient is a 28-year-old female with a past medical history of dependent for reflux, anxiety and depression presenting to the hospital after the patient overdosed on 50-90 Wellbutrin tablets subsequent did have a agitation respiratory distress requiring revision admission to the ICU ID consulted because of concern for aspiration pneumonia.The patient is status post tracheostomy and PEG tube placement on 07/05/2024. On today's visit that is 07/18/2024, Patient is afebrile this morning patient de nies having any chest pain shortness of breath or cough, the patient is currently on room air, patient denies any abdominal pain no diarrhea no nausea no vomiting noted that has been repeated today Objective - Vital Signs Vital signs: Vital Signs Temp 98.6 F 07/18/24 04:45 Pulse 117 H 07/18/24 12:00 Resp 18 07/18/24 12:00 BP 120/60 07/18/24 12:00 Pulse Ox 95 07/18/24 12:00 FiO2 40 07/18/24 09:38 Intake & Output 07/17/24 07/18/24 07/18/24 18:59 06:59 18:59 Intake Total 770 Balance 770 Weight 105.5 kg Intake: IV 50 cefTRIAXone 2 gm In 50 Sodium Chloride 0.9% 50 ml @ 100 mls/hr IVPB Q24HR [facility] Rx#:[id number] Tube Feeding 720 Other: Voiding Method Indwelling Catheter Indwelling Catheter # Voids 1 2 1 # Bowel Movements 1 ABP, PAP, CO, CI - Last Documented Arterial Blood Pressure 112/61 - Exam GENERAL DESCRIPTION: Middle-age female up in the chair in no distress RESPIRATORY SYSTEM: Unlabored breathing , decreased breath sounds at bases HEART: S1 S2 regular rate and rhythm , ABDOMEN: Soft , no tenderness EXTREMITIES: No edema feet - Labs CBC & Chem 7: 07/16/24 07:10 07/16/24 07:10 Assessment and Plan (1) Sepsis Current Visit: Yes Status: Acute Code(s): A41.9 - SEPSIS, UNSPECIFIED ORGANISM SNOMED Code(s): 48062675 (2) Pneumonia Current Visit: Yes Status: Acute Code(s): J18.9 - PNEUMONIA, UNSPECIFIED ORGANISM SNOMED Code(s): 917015279 (3) MSSA (methicillin susceptible Staphylococcus aureus) infection Current Visit: Yes Status: Acute Code(s): A49.01 - METHICILLIN SUSCEP STAPH INFECTION, UNSP SITE SNOMED Code(s): 682536611 Plan: 1patient presenting the hospital with drug overdose with subsequent agitation respiratory distress requiring intubation concerning for possible aspiration pneumonia sputum is now growing MSSA in this patient who did have features of sepsis with fever elevated white count and hypotension requiring low-dose pressor support on initial evaluation. 2-patient did have resolution of her fever the patient white count normalized blood culture have been negative so far, sputum grew MSSA for the patient completed her Unasyn therapy 3patient vaginal area candidiasis for which the patient has completed course of Eraxis 4groin area candidiasis treated with with nystatin powder twice a day. 5-the patient did have resolution of her fever white normalized, sputum Streptococcus pneumoniae/MSSA 6 patient has shown overall clinical improvement trach has been closed she has been eating currently on ceftriaxone and short course of Augmentin on discharge Dictation was produced using [employer] dictation software. please excuse any grammatical, word or spelling errors. Time with Patient: Less than 30
[2024-07-18 17:01] VITALS: BMI 38.7
--- NOTE | 2024-07-18 17:34 | P.PN ---
Subjective Progress Note Date: 07/18/24 07/18/2024: Patient was seen for a follow-up. Patient is sitting comfortably in the bed. She is off tracheostomy, has trach collar. Able to speak when she closes the ostia. She is doing very well. Patient continues to have weakness of the right hand. 07/17/2024: Patient was seen for follow-up. Patient's mother and a friend were present by the bedside. Patient has remarkably improved. Patient is very pleasant. She is trying to speak through her tracheostomy. And is responding appropriately. Please refer to examination below. No seizures reported. 07/07/2024: Patient was seen for follow-up. Patient is opening her eyes, but severely encephalopathic. Does not make eye contact, does not track. Does not blink to visual threat. Per nurse report, she has episodes of profuse crying, sobbing. Patient is not following any commands. 07/06/2024: Patient was seen for follow-up. Patient had undergone tracheostomy and PEG tube placement yesterday. At present patient is on propofol 50 mcg/kg per minute, also on Versed 4 mg per hour. Patient is still sedated/comatose. 07/04/2024: Patient was seen for a follow-up. Patient is essentially unchanged. Still on propofol 75, fentanyl 1.5, Versed 15. Patient is off Nimbex. Per nurse report, after the Nimbex was discontinued, patient started becoming restless, and then desaturated. She was on propofol 50 mcg but then the dose was increased to 75 mcg along with higher dose of fentanyl and Versed. No seizure-like activity noticed. 07/03/2024: Patient was seen for a follow-up. Patient is essentially unchanged. Still on propofol 50, fentanyl 0.5, Versed 11 and Nimbex 1.5. No seizure-like activity. 07/02/2024: Patient initially seen by Dr. Jose Angel Mccoy. Please refer to his note for details. Patient is a 28-year-old female came with Wellbutrin overdose. Ingested at least 50 tablets of Wellbutrin. Patient had seizure-like activity and is on Depakote, maxed on Versed and propofol. 2 EEGs have been negative. Patient was seen for follow-up. Patient continues to be intubated, sedated on propofol 50 mcg/kg/min. Also on fentanyl 0.5 mcg/kg/h and Versed 11 mg/h. Patient also on Nimbex 1 mg/kg/min. Per nursing report, patient became acutely agitated, tried to sit up, vomited, and then aspirated really bad. Patient is on antibiotics. No seizure-like activity has been noticed since patient is on Depakote. Patient is on maximal dose of Versed and propofol. Patient is also on thiamine 100 mg IV daily. Patient was given phenobarbital x 1 dose as recommended by the poison control. Some of the workup at this hospital visit consisted of: White blood cell is within normal limits Level is for 96 Calcium is 6.1 and ionized calcium is 4.7 Magnesium is 1.2 POC glucose is 56 and repeated is in the low 100s. Sodium is within normal limits UDS is positive for benzo as well as marijuana. Routine EEG on 06/26/2024: Is abnormal. The background slowing is suggestive of mild encephalopathy likely due to toxic-metabolic derragement as well as medication use (IV Propofol, Versed and Ativan). Otherwise, no focal slowing, epileptiform discharges or seizures. CT head: No acute intracranial hemorrhage or midline shift is seen. Vauge areas of low attenuation in the bilateral cerebellar hemispheres slightly more promine nt on the right are identified. Ischemic injury is in the differential. Other etiologies not excluded. I personally reviewed CT and I personally could not rule out artifact as well. Repeat CT of the head is reported as no acute intracranial process. No significant interval change from the comparison. Repeat EEG: Is abnormal. The background slowing is suggestive of severe encephalopathy. Severe encephalopathy is likely due to toxic metabolic derangement as well as medication induced. The diffuse suppression is likely due to medication induced (Versed as well as Ativan and propofol). Otherwise there is no focal slowing, OptiForm discharge or seizure on the EEG. Patient probably Objective - Vital Signs Vital signs: Vital Signs Temp 98.6 F 07/18/24 04:45 Pulse 117 H 07/18/24 12:00 Resp 18 07/18/24 12:00 BP 120/60 07/18/24 12:00 Pulse Ox 95 07/18/24 12:00 FiO2 40 07/18/24 09:38 Intake & Output 07/17/24 07/18/24 07/18/24 18:59 06:59 18:59 Intake Total 770 Balance 770 Weight 105.5 kg Intake: IV 50 cefTRIAXone 2 gm In 50 Sodium Chloride 0.9% 50 ml @ 100 mls/hr IVPB Q24HR [facility] Rx#:[id number] Tube Feeding 720 Other: Voiding Method Indwelling Catheter Indwelling Catheter # Voids 1 2 1 # Bowel Movements 1 ABP, PAP, CO, CI - Last Documented Arterial Blood Pressure 112/61 - Exam Patient has trach collar. Patient is fully alert and awake. She is smiling. Fully interactive. Patient able to speak when she closes the ostomy. She is otherwise speaking very appropriately. She knows it is July and the year is 2024 and that she is in [facility] imported on [place]. Pupils are equal, round and reacting visual alex are full, and face is symmetric. Patient has right wrist drop, with right wrist extension 3+, right finger extension 2, normal biceps, triceps and deltoid. On detailed testing of the right hand, patient has normal strength of thumb adduction, thumb flexion but thumb extension is 2. The strength is normal in the left upper limb. Right wrist drop is likely due to laying on the right side for prolonged period of time, likely prior to arrival to the hospital. Patient has numbness of the right hand in the radial nerve distribution. Reflexes are 2+ at the knees. - Labs CBC & Chem 7: 07/16/24 07:10 07/16/24 07:10 Assessment and Plan Assessment: This is a 28-year-old woman with a history of borderline personality disorder who presented emergency department because of a suicidal attempt by taking multiple Wellbutrin tablets. Questionable few episode of seizure-like activity: Likely due to drug overdose. Multiple EEGs normal in the recent admission. Metabolic encephalopathy, resolved. Patient's mentation back to normal. Status post tracheostomy and PEG tube placement 07/05/2024. Patient has trach collar placed today 07/18/2024. Suicidal attempt Hypoglycemia Hypomagnesium History of borderline personality disorder Plan: * Patient is doing remarkably well. * EEG 07/07/2024 was abnormal due to presence of sporadic intermittent frontal rhythmic delta activity. This may suggest underlying encephalopathy. Otherwise the background appears to be normal. When compared to the EEG from 07/04/2024, the background has remarkably improved. No epileptiform activity was seen. * Patient never had any epileptiform activity seen on the EEG. Patient is off Depakote. * Repeat CT head performed on 06/29/2024, which revealed no acute intracranial process. * Psychiatry is consulted * Please avoid any further hypoglycemia and will defer correction of the electrolyte imbalance to primary and ICU team. * Will defer the rest of the medical management to primary other specialist * Patient is status post tracheostomy and PEG tube placement 07/05/2024. Patient today has trach collar placed. * B12 1207, RBC folate 707, both normal. * Patient has right wrist drop, likely because of laying on the right side for prolonged period of time. This likely happened prior to arrival to the hospital. Informed her that this is likely related to radial nerve compression at the radial groove. Avoid further compression in the upper arm. No blood pressure testing in the right upper limb. No prolonged laying on the right side. This hopefully will improve. If symptoms persist, may need EMG as an outpatient. * PT/OT. Neurologically clear for transfer to inpatient rehab. Awaiting insurance authorization.
[2024-07-18 17:53] LABS: Glucose,Whole Blood 102 mg/dL (70-110)
[2024-07-18] MEDS: GABAPENTIN 100 MG CAP PO SCH (20:36)
[2024-07-19 00:03] LABS: Glucose,Whole Blood 100 mg/dL (70-110)
[2024-07-19 04:40] VITALS: RESP 18
[2024-07-19 06:14] LABS: Glucose,Whole Blood 114 mg/dL (70-110)
[2024-07-19 12:37] VITALS: BP 107/67; PULSE 97; TEMP 98.2
--- NOTE | 2024-07-19 12:48 | P.DS ---
Providers Date of admission: 06/25/24 16:35 Expected date of discharge: 07/19/24 Attending physician: Sridevi Sanchez MD Consults: 06/25/24 16:35 Consult Physician Routine Consulting Provider: Psychiatry - [facility] Psychiatry Consult Reason/Comments: Suicide attempt Do you want consulting provider notified?: Already Contacted 06/26/24 08:32 Consult Physician Stat Consulting Provider: Maye Vance Consult Reason/Comments: ICU management Do you want consulting provider notified?: Already Contacted 06/28/24 16:30 Consult Physician Stat Consulting Provider: Jose Angel Mccoy Consult Reason/Comments: seizure like activity Do you want consulting provider notified?: Yes 06/29/24 09:02 Consult Physician Routine Consulting Provider: Austin Wright Consult Reason/Comments: Bacteremia Do you want consulting provider notified?: Yes 07/04/24 19:23 Consult Physician Stat Consulting Provider: Khoa Pruett Consult Reason/Comments: trach and peg Do you want consulting provider notified?: Already Contacted 07/17/24 15:13 Consult Physician Routine Consulting Provider: Gil Boles Consult Reason/Comments: eval for ipr Do you want consulting provider notified?: Yes Primary care physician: Stated None Hospital Course: 28 year old F with PMH of anxiety and borderline personality disorder on Wellbutrin presented after intentional ingestion of Wellbutrin. Patient is psychotic at the time my evaluation does not provide reliable history. According to ER provider signout as well as chart review, patient ingested somewhere between 50-90 extended release Wellbutrin tablets and an overdose attempt. Patient is clearly agitated, tachycardic at the time my evaluation. Upon arrival patient was afebrile, 148/96, heart rate 83. Patient subsequently received activated charcoal, was started on IV fluids, and given a total of 7 mg of Ativan while on continuous telemetry, with heart rates increasing to the 130s to 140s. The ER provider did contact poison control control who recommended medical monitoring until patient is stable for transfer to the mental health unit. Review of lab work shows normal CBC, CO2 of 20, ALT of 91, negative troponin, normal lactic acid, negative salicylate level, alcohol level, Tylenol level. Initial EKG shows normal sinus rhythm with a short CT interval and right axis deviation. Patient was admitted to the cardiac selective floor with telemetry, with low threshold for ICU escalation. Received multiple doses of Ativan + Librium, remained agitated, intubated on 06/27. Concerns for aspiration on 06/28, started on Zosyn with Vancomycin added for staph sputum Cx. IV consulted, switched to Unasyn on 06/29. Eraxis started for Vaginal candidiasis. Completed 4 days of Eraxis and 10 days of Unasyn on 07/08. Started on Zosyn for leukocytosis on 07/10. Sputum Cx grew S. pneumonia, antibiotics switched to Rocephin. ID recommending Augmentin on discharge. Concerns for seizures, started on Depakote, Neurology consulted. CT head showed no acute hemorrhage, areas of low-attenuation in the bilateral cerebellar hemisphere slightly more prominent on the right, per neurology, could be artifact. EEG done in was abnormal, showed background slowing suggestive of mild encephalopathy likely due to toxic metabolic derangement as well as medication use, no epileptiform discharges, seizures. Poison control recommended phenobarbital 570 mg IV x1 on 06/29. Continued on Valproic acid 250 mg IV BID, discontinued by Neurology as EEG was negative. Difficulty with extubation, CTA chest 07/02 showed no PE, multifocal PNA, cardiomegaly with small pleural effusions. Underwent successful Trach/PEG on 07/05. CT head/C-spine repeated on 07/11, no acute process. Difficulty with placement. Case management on board. 07/19 Patient was seen and examined. No acute events overnight. She reports no complaints. Plans for IPR today. Discharge Plan: Continue Augmentin for 1 week. Continue Cymbalta 60 mg PO QD, Lamical 25 mg PO QD. Scopolamine patch for secretions. Follow up with PCP within 1-[address] Vance + Dr. Pruett within 1 week of discharge. Vitals BP 107/67, RR 18, T 98.2F, HR 97, 98% on 2L NC Derm: warm, dry Head: atraumatic, normocephalic, symmetric, tracheostomy Eyes: no lid lag, anicteric sclera Mouth: no lip lesion, mucus membranes moist Cardiovascular: S1S2 tachy, no murmur Lungs: Bilateral rhonchi, no rales , no accessory muscle use Ext: no gross muscle atrophy, no edema, no contractures Neuro: No focal neurologic deficits Psych: Unable to determine + PEG Discharge Diagnosis: Acute respiratory failure s/p intubation for airway protection 06/27: CTA chest negative for PE but does show multifocal PNA with cardiomegaly and small pleural effusions. Status post PEG/Trach 07/05. Sepsis likely secondary to aspiration pneumonia with S. aureus + S. pneumonia Sputum Cx: Completed multiple days of Unasyn, Zosyn and Rocephin. Tylenol 650 mg PO Q6H PRN fever. Elevated HOB. Aspiration precautions. Pulmonary and ID on . Acute metabolic encephalopathy due to below: CT head 06/29 and 07/11 no acute process. B12 1207. Folate 707. EEG shows encephalopathy with no seizure activity, Valproic acid discontinued by Neurology on 07/09. Seizure precautions. Neurology on board. Intentional overdose with Wellbutrin Iron def anemia: Iron level of 9. Defer IV iron while treating active infection. Monitor Hg. Transfuse if Hg < 7. Constipation: Miralax 17g PO QHS. Lactulose 20g PO QD PRN. Anxiety and Borderline personality disorder: Lamictal 25 mg PO QD. Cymbalta 60 mg PO QD. Psychiatry on board. Resolved: Metabolic acidosis, Hypokalemia, Hypomagnesemia This complex discharge took 35 minutes to complete. Patient Condition at Discharge: Stable Plan - Discharge Summary New Discharge Prescriptions: New DULoxetine HCL [Cymbalta] 60 mg PO DAILY cap lamoTRIgine [LaMICtal] 25 mg PO DAILY tab Scopolamine 1 mg/72 Hr Patch [TransDerm Scop] 1 patch TRANSDERM Q72H patch Amoxic-Pot Clav 875-125Mg [Augmentin 875-125] 1 tab PO Q12HR 7 Days #14 tab Melatonin 5 mg PO HS PRN tab PRN Reason: Insomnia Gabapentin [Neurontin] 100 mg PO BID cap Pantoprazole Sodium [Protonix] 40 mg PO AC-BRKFST #30 tab Acetaminophen Tab [Tylenol] 650 mg PO Q6HR PRN tab PRN Reason: Mild Pain Or Fever > 100.5 Discontinued buPROPion XL [Wellbutrin XL] 150 mg PO DAILY Famotidine [Pepcid] 20 mg PO BID Desvenlafaxine [Pristiq ER] 100 mg PO DAILY Propranolol HCl 10 mg PO DAILY PRN PRN Reason: panic attacks lamoTRIgine 200 mg PO DAILY Discharge Medication List Acetaminophen Tab [Tylenol] 650 mg PO Q6HR PRN tab 07/19/24 [Rx] Amoxic-Pot Clav 875-125Mg [Augmentin 875-125] 1 tab PO Q12HR 7 Days #14 tab 07/19/24 [Rx] DULoxetine HCL [Cymbalta] 60 mg PO DAILY cap 07/19/24 [Rx] Gabapentin [Neurontin] 100 mg PO BID cap 07/19/24 [Rx] Melatonin 5 mg PO HS PRN tab 07/19/24 [Rx] Pantoprazole Sodium [Protonix] 40 mg PO AC-BRKFST #30 tab 07/19/24 [Rx] Scopolamine 1 mg/72 Hr Patch [TransDerm Scop] 1 patch TRANSDERM Q72H patch 07/19/24 [Rx] lamoTRIgine [LaMICtal] 25 mg PO DAILY tab 07/19/24 [Rx] Follow up Appointment(s)/Referral(s): Maye Vance MD [STAFF PHYSICIAN] - 1 Week Donovan Pelayo MD [REFERRING] - 1-2 days Activity/Diet/Wound Care/Special Instructions: [facility] 07.12 @[address] [employer] ([employer]) P: [phone] Discharge Disposition: TRANSFER TO SNF/ECF
--- NOTE | 2024-07-19 13:26 | P.PN ---
Subjective Progress Note Date: 07/19/24 SURGICAL PROGRESS NOTE CHIEF COMPLAINT: Intentional overdose HISTORY OF PRESENT ILLNESS: Patient is postop day #13 status post tracheostomy and PEG tube placement. Patient had tracheostomy removed today. She is tolerating food. The patient feels full from her tube feeds. She denies any nausea or vomiting. She is having bowel movements. She is scheduled for discharge to [facility] rehab today. PHYSICAL EXAM: VITAL SIGNS: Reviewed. GENERAL: no acute distress. HEENT: Tracheostomy site clean, dry and intact. Tracheostomy incision site no drainage. Mild pink color noted. Sutures are intact. ABDOMEN: Soft. Obese. PEG tube site clean dry and intact ASSESSMENT: 1. Acute respiratory failure s/p intubation to protect airway after patient received significant sedation for agitation from Wellbutrin overdose and had an aspiration pneumonia 2. Severe protein calorie malnutrition 3. Suicide attempt with Wellbutrin overdose PLAN: -Patient is interested in eating. Okay to stop tube feeds and trial diet if okay with dietitian. PEG tube will then need to be flushed if tube feeds are stopped -[facility] -Sutures at tracheostomy incision site to be removed in a few days Physician Tape Cutter note has been reviewed by physician. Signing provider agrees with the documented findings, assessment, and plan of care. Attestation Patient seen and examined at bedside. Plan for discharge to [facility] rehabilitation today. Surgically stable for this. Maureen Swanson DO Objective - Vital Signs Vital signs: Vital Signs Temp 98.2 F 07/19/24 12:35 Pulse 97 07/19/24 13:02 Resp 18 07/19/24 13:02 BP 107/67 07/19/24 12:35 Pulse Ox 98 07/19/24 08:48 FiO2 40 07/18/24 09:38 Intake & Output 07/18/24 07/19/24 07/19/24 18:59 06:59 18:59 Intake Total 650 Output Total 0 Balance 650 0 Weight 105.5 kg 105.5 kg Intake: Oral 540 Tube Feeding 110 Output: Stool 0 Other: Voiding Method Indwelling Catheter Toilet Toilet # Voids 1 1 # Bowel Movements 1 1 ABP, PAP, CO, CI - Last Documented Arterial Blood Pressure 112/61 - Labs CBC & Chem 7: 07/16/24 07:10 07/16/24 07:10 Labs: Abnormal Lab Results - Last 24 Hours (Table) 07/19/24 Range/Units 06:12 POC Glucose (mg/dL) 114 H (70-110) mg/dL
--- NOTE | 2024-07-19 14:46 | P.PN ---
Subjective Progress Note Date: 07/19/24 07/03/2024: This is a 28-year-old female with history of borderline personality disorder admitted to ICU on 06/26 and was subsequently intubated due to acute respiratory failure secondary to Wellbutrin overdose. According to the chart patient may have taken about 30-90 tablets. Patiente was intubtated on 06/26 due to extreme agitation and restlessness. Patient was seen today on 07/02/2024, she remains in ICU mechanically ventilated, sedated, and paralyzed. She is on assist-control at a rate of 16, tidal volume of 500, FiO2 at 70%, PEEP of 12. ABG this morning showing pH of 7.4, pCO2 44, pO2 69. Currently on Nimbex 1.5 mcg/mg/min, propofol 50 mcg/kg/min, fentanyl 0.5mcg/kg/hr, Versed 11 mg/hr, and propofol 50 mcg/kg/min. Intermittently has been on norepinephrine, but is currently not requiring it at this moment. Last weaning trial was on 06/29. Tube nutritional support/enteral feeding vital HP at goal. No overnight events. Chest x-ray showing patchy basilar infiltrates, no change from prior. Remains on Unasyn at 200 MLS/HR IVPB every 6 hours due to aspiration pneumonia. Remains on Decadron 6 mg IVP every 6 hours. Labs: WBC 8.5, Hgb 9.9 1, HCT 33.2, platelet 248, sodium 143, potassium 3.9, BUN 11, creatinine 0.14, glucose 137. Patient seen today on 07/04/2024 in room 260. She remains sedated on mechanical ventilator. She is on volume assist-control, rate 16, tidal volume 500, FiO2 6 0%, PEEP of 12. Blood gases show pO2 of 73, pCO2 of 41, pH is 7.43. The patient is getting D5.9 at 50 cc an hour, fentanyl drip at 0.5 mcg/kg/h, Versed at 11 mg an hour, propofol at 50 mcg/kg/min, Nimbex at 2.0 mcg/kg/min (which we will discontinue today), and vital HP at 20 cc an hour which is goal. Remains on Unasyn due to MSSA found in sputum culture. Blood cultures showing no growth after 5 days. There are no plans of weaning of mechanical ventilation. She has been on the ventilator since June 26. Spoke with mother regarding tracheostomy and PEG tube placement. Mother is agreeable with continued life support. Surgery has been consulted for tracheostomy and PEG tube placement with plans on have tracheostomy and PEG tube placement on with Dr. Quinteros. CXR showing bibisilar opacities. White count is 7.3, hemoglobin 9.5, hematocrit 31.5, platelet count 266,000. Sodium 140, potassium 4.1, chlorides 109, CO2 26, BUN 14, creatinine 0.42. Glucose is 104. Calcium is 7.8. Labs, x-rays, and all medications are reviewed. Prognosis is guarded. Patient seen today on 07/05/2024 in room 260. She remains on mechanical ventilator. She is on volume assist-control, rate 16, tidal volume 500, FiO2 60%, PEEP of 12. Blood gases show pO2 of 69, pCO2 of 37, pH is 7.47. The patient is getting D5.9 at 50 cc an hour, fentanyl drip discontinued around 4:00am, Versed at 15 mg an hour, propofol at 75 mcg/kg/min, Nimbex removed at 2:30p yesterday, and tube feeds have been on hold since midnight. Remains on Unasyn due to MSSA found in sputum culture. She has also been placed on Eraxis by ID due to vaginal candidiasis. She has been on the ventilator since June 26. Surgery has been consulted and tracheostomy is scheduled for today with Dr Pruett at 11am. CXR showing bibisilar opacities, similar to prior. White count is 7.9, hemoglobin 9.8, hematocrit 30.8, platelet count 286,000. Sodium 140, potassium 4.1, chlorides 109, CO2 24, BUN 11, creatinine 0.37. Glucose is 97. Calcium is 8.0. Labs, x-rays, and all medications are reviewed. Plan is for tracheostomy and PEG tube placement today. Prognosis is guarded. Patient seen today on 07/06/2024 in room 260. She remains on mechanical venti lator. She is on volume assist-control, rate 16, tidal volume 500, FiO2 60%, PEEP of 12. Blood gases show pO2 of 62, pCO2 of 32, pH is 7.51. The patient is getting D5.9 at 50 cc an hour, Versed at 10 mg an hour, propofol at 50 mcg/kg/min, and tube feeds currently on hold, will resume later today. Remains on Unasyn and Eraxis. Will contact ID regarding duration of antibiotic course. She is day one since being placed on trach and PEG tube. ART line was lost yesterday. CXR showing bibisilar opacities, tracheostmy cannula tip projecting over trachea. White count is 7.9, hemoglobin 9.8, hematocrit 30.8, platelet count 286,000. Sodium 140, potassium 3.8, chlorides 110, CO2 23, BUN 12, creatinine 0.48. Glucose is 83. Calcium is 8.2. Labs, x-rays, and all medications are reviewed. Plan is to wean off Versed and propofol. Will order Ativan 1mg q6hr prn and 0.5 mg Dilaudid q4hr prn. Prognosis is guarded. Patient seen today on 07/07/2024 in room 260. She remains on mechanical ventilator. She is on volume assist-control, rate 15, tidal volume 500, FiO2 60%, PEEP of 12. Blood gases show pO2 of 70, pCO2 of 31, pH is 7.50. She is awake and was crying, but she is not following any commands. The patient is getting D5.9 at 50 cc an hour, Versed off since 0 last night, propofol at 10 mcg/kg/min, and tube feeds resumed, vital HP at 20 cc/hr with a goal of 45. Remains on day 9 of 10 with Unasyn and day 3 of 5 with Eraxis. She is day two since being placed on trach and PEG tube. CXR showing bibisilar opacities, tracheostmy cannula tip projecting over trachea. Patient had EEG done today, reading is pending. White count is 10.1, hemoglobin 11.5, hematocrit 37.0, platelet count 314,000. Sodium 143, potassium 4.1, chlorides 111, CO2 22, BUN 14, creatinine 0.50. Glucose is 81. Calcium is 8.0. Labs, x-rays, and all medications are reviewed. Will resume Fluoxetine. She is pending placement, she currently does not have any insurance. Prognosis is guarded. Patient seen today on 07/08/2024 in room 260. She remains on mechanical ventilator. She is on volume assist-control, rate 16, tidal volume 500, FiO2 60%, PEEP of 12. Blood gases show pO2 of 111, pCO2 of 33, pH is 7.50. The patient is getting D5.9 at 50 cc an hour, propofol at 20 mcg/kg/min, and tube feeds resumed, vital HP at 40 cc/hr with a goal of 45. Unasyn can be discontinued after today since she is on her 10th day on it. She is on day 4 of 5 with Eraxis. She is day 3 since being placed on trach and PEG tube. CXR showing bibisilar opacities, tracheostmy cannula tip projecting over trachea. EEG Is abnormal. The background slowing is suggestive of severe encephalopathy. Severe encephalopathy is likely due to toxic metabolic derangement as well as medication induced. White count is 14.9, hemoglobin 12.9, hematocrit 40.6, platelet count 273,000. Sodium 142, potassium 3.5, chlorides 110, CO2 22, BUN 12, creatinine 0.43. Glucose is 117. Mg 1.9. Labs, x-rays, and all medic ations are reviewed. She is pending placement, she currently does not have any insurance. Prognosis is guarded. The patient is seen today July 09, 2024 in follow-up in the intensive care unit. She remains on the mechanical ventilator currently on assist-control mode at a rate of 16, tidal volume 500, FiO2 50% and a PEEP of 10. Morning blood gases revealed a PaO2 of 114, pCO2 37 and a pH of 7.47. Her propofol is currently paused since 5 AM. The patient is following commands. She is attempting to mouth words. Tracheostomy and PEG tube have been placed. She remains on vital HP at 40 mL/h which is goal. Chest x-ray continues to show small consolidative infiltrates of the lung bases. White count 16.3. Hemoglobin 13.5. Platelets 241. Decadron 6 mg IVP every 6 hours. Remains on heparin for DVT prophylaxis. Dilaudid for pain control. Perlick acid. No seizure activity. The patient is seen today July 19 2024 in follow-up on the regular medical floor. She is awake and alert in no acute distress. Yesterday she was decannulated. She is able to talk. Tracheostomy site dressing in place. Tube feedings have been placed on hold. She is tolerating a dysphagia level 3 c hopped diet. She remains on ceftriaxone. Heparin for DVT prophylaxis. Maintaining good O2 saturations in the 90s on room air. Blood glucose 114. Objective - Vital Signs Vital signs: Vital Signs Temp 98.2 F 07/19/24 12:35 Pulse 97 07/19/24 13:02 Resp 18 07/19/24 13:02 BP 107/67 07/19/24 12:35 Pulse Ox 98 07/19/24 08:48 FiO2 40 07/18/24 09:38 Intake & Output 07/18/24 07/19/24 07/19/24 18:59 06:59 18:59 Intake Total 650 Output Total 0 Balance 650 0 Weight 105.5 kg 105.5 kg 105.5 kg Intake: Oral 540 Tube Feeding 110 Output: Stool 0 Other: Voiding Method Indwelling Catheter Toilet Toilet # Voids 1 1 # Bowel Movements 1 1 ABP, PAP, CO, CI - Last Documented Arterial Blood Pressure 112/61 - Exam GENERAL EXAM: Alert, pleasant 28-year-old female, on room air, in no apparent distress. HEAD: Normocephalic. EYES: Normal reaction of pupils, equal size. NOSE: Clear with pink turbinates. THROAT: No erythema or exudates. NECK: Tracheostomy dressing dry and intact. De-cannulated yesterday. CHEST: No chest wall deformity. LUNGS: Equal air entry with few scattered rhonchi. CVS: S1 and S2 normal with no audible murmur, regular rhythm. ABDOMEN: PEG tube secured in place. No hepatosplenomegaly, normal bowel sounds, no guarding or rigidity. SPINE: No scoliosis or deformity SKIN: No rashes CENTRAL NERVOUS SYSTEM: No focal deficits, tone is normal in all 4 extremities. EXTREMITIES: There is no peripheral edema. No clubbing, no cyanosis. Peripheral pulses are intact. - Labs CBC & Chem 7: 07/16/24 07:10 07/16/24 07:10 Labs: Abnormal Lab Results - Last 24 Hours (Table) 07/19/24 Range/Units 06:12 POC Glucose (mg/dL) 114 H (70-110) mg/dL Assessment and Plan Assessment: Acute respiratory failure, secondary to Wellbutrin overdose which required significant amount of sedation and patient developed respiratory failure requiring intubation and mechanical ventilation and needed to be intubated for protection of her airways as the patient received significant amount of sedation to control her agitation from Wellbutrin overdose. Again patient was intubated to protect her airways. She did subsequent undergo tracheostomy and PEG tube placements. She was decannulated yesterday July 18, 2024. Tube feedings are on hold now. She is tolerating a dysphagia level 3 chopped diet Acute hypoxic respiratory failure secondary to pneumonia which has developed post intubation, completed antibiotics. Covered and on room air Wellbutrin overdose Borderline personality disorder Suicidal attempt Aspiration pneumonia Sepsis secondary to aspiration pneumonia Electrolytes imbalance History of generalized anxiety disorder MSSA pneumonia Plan: The patient was seen and evaluated Labs and medications reviewed Currently stable and on room air De-cannulated yesterday PEG tube feedings on hold Tolerating a dysphagia level 3 chopped diet Remains quite weak and debilitated Plan is to transfer to inpatient rehabilitation possibly today I have personally seen and examined the patient, performed the documentation and the assessment and plan as written. Number of minutes spent on the visit: 10 Dictation was produced using [employer] dictation software. Please excuse any grammatical, word or spelling errors.
--- NOTE | 2024-07-19 17:44 | P.PN ---
Subjective Progress Note Date: 07/19/24 Principal diagnosis: Reason for follow-up is MSSA/aspiration pneumonia Patient is a 28-year-old female with a past medical history of dependent for reflux, anxiety and depression presenting to the hospital after the patient overdosed on 50-90 Wellbutrin tablets subsequent did have a agitation respiratory distress requiring revision admission to the ICU ID consulted because of concern for aspiration pneumonia.The patient is status post tracheostomy and PEG tube placement on 07/05/2024. On today's visit that is 07/19/2024,the patient denies any fever or any chills, patient is breathing comfortably on room air, the patient denies chest pain shortness of breath and no significant cough, patient denies abdominal pain, no nausea vomiting or diarrhea. No new lab has been repeated today Objective - Vital Signs Vital signs: Vital Signs Temp 98.2 F 07/19/24 12:35 Pulse 97 07/19/24 13:02 Resp 18 07/19/24 13:02 BP 107/67 07/19/24 12:35 Pulse Ox 98 07/19/24 08:48 FiO2 40 07/18/24 09:38 Intake & Output 07/18/24 07/19/24 07/19/24 18:59 06:59 18:59 Intake Total 650 Output Total 0 Balance 650 0 Weight 105.5 kg 105.5 kg Intake: Oral 540 Tube Feeding 110 Output: Stool 0 Other: Voiding Method Indwelling Catheter Toilet Toilet # Voids 1 1 # Bowel Movements 1 1 ABP, PAP, CO, CI - Last Documented Arterial Blood Pressure 112/61 - Exam GENERAL DESCRIPTION: Middle-age female up in the chair in no distress RESPIRATORY SYSTEM: Unlabored breathing , decreased breath sounds at bases HEART: S1 S2 regular rate and rhythm , ABDOMEN: Soft , no tenderness EXTREMITIES: No edema feet - Labs CBC & Chem 7: 07/16/24 07:10 07/16/24 07:10 Labs: Abnormal Lab Results - Last 24 Hours (Table) 07/19/24 Range/Units 06:12 POC Glucose (mg/dL) 114 H (70-110) mg/dL Assessment and Plan (1) Sepsis Status: Acute Code(s): A41.9 - SEPSIS, UNSPECIFIED ORGANISM SNOMED Code(s): 79041298 (2) Pneumonia Status: Acute Code(s): J18.9 - PNEUMONIA, UNSPECIFIED ORGANISM SNOMED Code(s): 944816362 (3) MSSA (methicillin susceptible Staphylococcus aureus) infection Status: Acute Code(s): A49.01 - METHICILLIN SUSCEP STAPH INFECTION, UNSP SITE SNOMED Code(s): 160105721 Plan: 1patient presenting the hospital with drug overdose with subsequent agitation respiratory distress requiring intubation concerning for possible aspiration pneumonia sputum is now growing MSSA in this patient who did have features of sepsis with fever elevated white count and hypotension requiring low-dose pressor support on initial evaluation. 2-patient did have resolution of her fever the patient white count normalized blood culture have been negative so far, sputum grew MSSA for the patient completed her Unasyn therapy 3patient vaginal area candidiasis for which the patient has completed course of Eraxis 4groin area candidiasis treated with with nystatin powder twice a day. 5-the patient did have resolution of her fever white normalized, sputum Streptococcus pneumoniae/MSSA 6 patient currently waiting for transfer to rehab short course of Augmentin on discharge Dictation was produced using [employer] dictation software. please excuse any grammatical, word or spelling errors. Time with Patient: Less than 30
== END 2024-07-19 13:49 | DRG 5 ==
LOC: EC 14:32 → 6NMEDSUR 16:35 → 3SCARD 18:18 → 2SICU 06-26 08:41 → 3SCARD 07-13 20:20 → 4SSUR 07-19 10:16
PROVIDERS: ADMIT Internal Medicine; ATTEND Internal Medicine
DX: T43.292A Poisoning by other antidepressants, intentional self-harm, initial encounter (principal); A40.3 Sepsis due to Streptococcus pneumoniae; B95.61 Methicillin susceptible Staphylococcus aureus infection as the cause of diseases classified elsewhere; B37.31 Acute candidiasis of vulva and vagina; D50.9 Iron deficiency anemia, unspecified; E43 Unspecified severe protein-calorie malnutrition; E66.01 Morbid (severe) obesity due to excess calories; E83.42 Hypomagnesemia; E87.20 Acidosis, unspecified; E87.6 Hypokalemia; F12.10 Cannabis abuse, uncomplicated; G72.81 Critical illness myopathy; G92.8 Other toxic encephalopathy; F60.3 Borderline personality disorder; J69.0 Pneumonitis due to inhalation of food and vomit; J96.01 Acute respiratory failure with hypoxia; J95.851 Ventilator associated pneumonia; F33.2 Major depressive disorder, recurrent severe without psychotic features; I95.9 Hypotension, unspecified; R65.20 Severe sepsis without septic shock; R62.7 Adult failure to thrive; Z78.1 Physical restraint status; I10 Essential (primary) hypertension; Z20.822 Contact with and (suspected) exposure to COVID-19; J98.11 Atelectasis; K21.9 Gastro-esophageal reflux disease without esophagitis; K59.00 Constipation, unspecified; M21.331 Wrist drop, right wrist; F17.200 Nicotine dependence, unspecified, uncomplicated; R13.10 Dysphagia, unspecified; R25.1 Tremor, unspecified; F41.1 Generalized anxiety disorder; E16.2 Hypoglycemia, unspecified; R45.1 Restlessness and agitation; K57.30 Diverticulosis of large intestine without perforation or abscess without bleeding; Z79.899 Other long term (current) drug therapy; Z91.81 History of falling; Z59.71 Insufficient health insurance coverage; Z56.0 Unemployment, unspecified; Z28.310 Unvaccinated for COVID-19
CPT/HCPCS: 36410; 36415; 36600; 43246; 70450; 71045; 71275; 72125; 74230; 76937; 80048; 80053; 80076; 80143; 80179; 80202; 80306; 80320; 81001; 81003; 81025; 82330; 82550; 82607; 82747; 82805; 83010; 83540; 83550; 83605; 83615; 83735; 84132; 84145; 84484; 85025; 85027; 85045; 85379; 85384; 85610; 87040; 87070; 87077; 87086; 87186; 87205; 93005; 94002; 94003; 94760; 95816; 95822; 96361; 96372; 96374; 96375; 96376; 99291